=== PATIENT | female | born 1985 | race Caucasian/White ===

== ENCOUNTER → 2016-08-14 | Outpatient (CLI) | payer MEDICAID ==
[~2016-08-14] MED LIST: /HALO1T; /OL10DISTA; /OXCA30TA; /OXCA30TA OR; ABIL15TA; ABIL1TAB5 PO; ABIL5TAB5 PO; ALLE25CA; ALLE25CA OR; AMAN10CA PO; AMBI5TAB OR; ARIP10TAB PO; ARIP5TA PO; ATIV0.5T; ATIV1TAB2; BENZ1TAB; BENZ5TA PO; CALC200C PO; CELE20TA OR; CELE20TA PO; COGE1INJ; COGE1INJ PO; COGENTIN; COGENTIN PO; Cogentin OR; FANAPT; FANAPT OR; FANAPT PO; GABI4TAB; GEOD20CA14; GEOD60CA; GEODON; HALO10TA4 OR; HALOPERIDOL; HYDR25T PO; INDE1CAP5 PO; KLON1TAB; LORA0.5T; LORA2TAB; MELA3TAB PO; MELATONIN PO; Melatonin PO; OXCA300T PO; OXCA600T PO; PROP60CA PO; QUET20XRTB; TRAZ50TA; TRAZ50TA OR; TRIL600T; TRIL600T OR; VIST25CA PO; VITA400C; VITA400C OR; VITA400C2 PO; VITACHTA PO; Vitamin E OR; ZIPR80CAP; ZOLO100T; ZOLO100T OR; ZOLO25TA; ZOLO50TA; ZOLO50TA OR; Zoloft OR
[2016-08-14 09:12] LABS: MEAN CORPUSCULAR HGB CONC 32.9 g/dl (32.0-36.5); MEAN CORPUSCULAR VOLUME 85.1 fl (80.0-96.0); WHITE BLOOD COUNT 6.3 K/mm3 (4.0-10.0)
[2016-08-14 09:41] LABS: ALBUMIN 3.5 GM/DL (3.2-5.2); ALBUMIN/GLOBULIN RATIO 1.06 (1.00-1.93); ALKALINE PHOSPHATASE 86 U/L (45-117); ALT/SGPT 23 U/L (12-78); AST/SGOT 18 U/L (15-37); BILIRUBIN,DIRECT < 0.1 MG/DL (0.0-0.2); BILIRUBIN,TOTAL 0.2 MG/DL (0.2-1.0); TOTAL PROTEIN 6.8 GM/DL (6.4-8.2)
== END ==
LOC: M WUC 08:37
PROVIDERS: ATTEND Psychiatry & Neurology Psychiatry
DX: F31.9 Bipolar disorder, unspecified (principal)

== ENCOUNTER → 2017-04-10 | Outpatient (CLI) | payer MEDICAID ==
[~2017-04-10] MED LIST changes: +ABIL10TA9 PO; +ABIL1TAB11 PO; -ABIL1TAB5 PO; -ABIL5TAB5 PO; +BENZ0.5T PO; -BENZ5TA PO; +HYDR-3363 PO; -HYDR25T PO; -VITA400C2 PO; +VITA400C7 PO
--- NOTE | 2017-04-10 15:58 | REP ---
LEFT ANKLE, FOUR VIEWS: HISTORY: Acute pain. There is no acute fracture or dislocation. The joint space is normal in appearance. IMPRESSION: There is no acute fracture or dislocation. Signed by Bon Rivas MD 04/10/2017 04:11 P
== END ==
LOC: M SMT 15:28
PROVIDERS: ATTEND Family Medicine
DX: M25.572 Pain in left ankle and joints of left foot (principal)

== ENCOUNTER → 2017-04-21 | Outpatient (CLI) | payer MEDICAID | LOC: M SMT 08:21 | PROVIDERS: ATTEND Family Medicine | DX: R73.01 Impaired fasting glucose (principal) ==

== ENCOUNTER → 2017-04-21 | Outpatient (CLI) | payer MEDICAID ==
[2017-04-21 13:46] LABS: MEAN CORPUSCULAR HEMOGLOBIN 28.5 pg (27.0-33.0); MEAN CORPUSCULAR HGB CONC 33.6 g/dl (32.0-36.5); MEAN CORPUSCULAR VOLUME 84.9 fl (80.0-96.0); PLATELET COUNT, AUTOMATED 216 10^3/uL (150-450); RED CELL DISTRIBUTION WIDTH 13.4 % (11.5-14.5); WHITE BLOOD COUNT 5.8 10^3/uL (4.0-10.0)
[2017-04-21 14:05] LABS: ALBUMIN 3.5 GM/DL (3.2-5.2); ALBUMIN/GLOBULIN RATIO 1.13 (1.00-1.93); BILIRUBIN,DIRECT 0.1 MG/DL (0.0-0.2); BILIRUBIN,TOTAL 0.4 MG/DL (0.2-1.0); POTASSIUM SERUM 4.4 MEQ/L (3.5-5.1); TOTAL PROTEIN 6.6 GM/DL (6.4-8.2)
== END ==
LOC: M SMT 08:24
PROVIDERS: ATTEND Psychiatry & Neurology Psychiatry
DX: F25.0 Schizoaffective disorder, bipolar type (principal)

== ENCOUNTER → 2017-06-30 | Outpatient (REF) | payer MEDICAID ==
[2017-07-02 14:13] LABS: HPV HYBRID CAPTURE II Negative (Negative)
== END ==
LOC: M SFHCPLAZ 14:35
DX: Z12.4 Encounter for screening for malignant neoplasm of cervix (principal)

== ENCOUNTER → 2017-09-18 | Outpatient (CLI) | payer MEDICAID ==
[2017-09-18 13:30] LABS: HEMATOCRIT 39.3 % (36.0-47.0); HEMOGLOBIN 12.8 g/dl (12.0-15.5); MEAN CORPUSCULAR HEMOGLOBIN 27.4 pg (27.0-33.0); MEAN CORPUSCULAR HGB CONC 32.6 g/dl (32.0-36.5); MEAN CORPUSCULAR VOLUME 84.2 fl (80.0-96.0); PLATELET COUNT, AUTOMATED 255 10^3/uL (150-450); RED BLOOD COUNT 4.67 10^6/uL (4.00-5.40); RED CELL DISTRIBUTION WIDTH 12.5 % (11.5-14.5); WHITE BLOOD COUNT 11.2 10^3/uL (4.0-10.0)
[2017-09-18 13:40] LABS: ALBUMIN 3.5 GM/DL (3.2-5.2); ALBUMIN/GLOBULIN RATIO 0.95 (1.00-1.93); ALKALINE PHOSPHATASE 69 U/L (45-117); ALT/SGPT 17 U/L (12-78); ANION GAP 6 MEQ/L (8-16); AST/SGOT 12 U/L (7-37); BILIRUBIN,DIRECT < 0.1 MG/DL (0.0-0.2); BILIRUBIN,TOTAL 0.2 MG/DL (0.2-1.0); CARBON DIOXIDE LEVEL 26 MEQ/L (21-32); CHLORIDE LEVEL 100 MEQ/L (98-107); CHOLESTEROL LEVEL 178 MG/DL (< 200); POTASSIUM SERUM 4.9 MEQ/L (3.5-5.1); SODIUM LEVEL 132 MEQ/L (136-145); TOTAL PROTEIN 7.2 GM/DL (6.4-8.2)
[2017-09-18 14:16] LABS: ESTIMATED AVERAGE GLUCOSE 111 MG/DL (60-110); HEMOGLOBIN A1c 5.5 %
[2017-09-21 08:06] LABS: OXCARBAZEPINE 17 ug/mL (10-35)
== END ==
LOC: M SMT 08:17
DX: F25.1 Schizoaffective disorder, depressive type (principal)
CPT/HCPCS: 82465

== ENCOUNTER → 2017-09-23 | Outpatient (REF) | payer MEDICAID ==
[2017-09-23 19:42] LABS: ANION GAP 5 MEQ/L (8-16); BLOOD UREA NITROGEN 11 MG/DL (7-18); CALCIUM LEVEL 8.5 MG/DL (8.5-10.1); CARBON DIOXIDE LEVEL 30 MEQ/L (21-32); CHLORIDE LEVEL 103 MEQ/L (98-107); CREATININE FOR GFR 0.77 MG/DL (0.55-1.30); GLOMERULAR FILTRATION RATE > 60.0 (>60); GLUCOSE, FASTING 117 MG/DL (70-100); POTASSIUM SERUM 4.2 MEQ/L (3.5-5.1); SODIUM LEVEL 138 MEQ/L (136-145)
== END ==
LOC: M SFHCPLAZ 15:42
DX: E87.1 Hypo-osmolality and hyponatremia (principal)
CPT/HCPCS: 80048

== ENCOUNTER 2017-12-02 11:22 | Emergency (ER) | payer MEDICAID ==
[2017-12-02 13:32] LABS: BASO # 0.1 10^3/uL (0.0-0.2); BASO % 0.8 % (0.0-1.0); EOS # 0.3 10^3/uL (0.0-0.50); EOS % 3.7 % (0.0-3.0); HEMATOCRIT 40.1 % (36.0-47.0); IMMATURE GRANULOCYTE % 0.3 % (0-3.0); LYMPH # 1.7 10^3/uL (1.5-4.5); LYMPH % 22.5 % (24.0-44.0); MEAN CORPUSCULAR HEMOGLOBIN 27.2 pg (27.0-33.0); MEAN CORPUSCULAR HGB CONC 32.4 g/dl (32.0-36.5); MEAN CORPUSCULAR VOLUME 83.9 fl (80.0-96.0); MONO # 0.7 10^3/uL (0.0-0.8); MONO % 9.7 % (0.0-5.0); NEUTROPHILS # 4.8 10^3/uL (1.8-7.7); PLATELET COUNT, AUTOMATED 277 10^3/uL (150-450); RED BLOOD COUNT 4.78 10^6/uL (4.00-5.40); RED CELL DISTRIBUTION WIDTH 13.1 % (11.5-14.5); WHITE BLOOD COUNT 7.6 10^3/uL (4.0-10.0)
[2017-12-02 13:38] LABS: KETONE, URINE AUTO RFX NEGATIVE (NEGATIVE); LEUKOCYTE ESTERASE UR AUTO RFX NEGATIVE (NEGATIVE); MUCUS, URINE RFX SMALL (NEGATIVE); NITRITE, URINE AUTO RFX NEGATIVE (NEGATIVE); RBC, URINE AUTO RFX 2 /HPF (0-3); SQUAM EPITHELIAL CELL UR AURFX 1 /HPF (0-6); WBC, URINE AUTO RFX 1 /HPF (0-3)
[2017-12-02 13:47] LABS: D-DIMER QUANT 287.7 ng/ml (<500)
[2017-12-02 13:57] LABS: ALBUMIN 3.5 GM/DL (3.2-5.2); ALBUMIN/GLOBULIN RATIO 0.85 (1.00-1.93); ALKALINE PHOSPHATASE 75 U/L (45-117); ALT/SGPT 26 U/L (12-78); ANION GAP 7 MEQ/L (8-16); AST/SGOT 21 U/L (7-37); BILIRUBIN,DIRECT < 0.1 MG/DL (0.0-0.2); BILIRUBIN,TOTAL 0.2 MG/DL (0.2-1.0); BLOOD UREA NITROGEN 11 MG/DL (7-18); C REACTIVE PROTEIN QUANTITATIV 0.89 MG/DL (0.00-0.30); CALCIUM LEVEL 8.8 MG/DL (8.5-10.1); CARBON DIOXIDE LEVEL 28 MEQ/L (21-32); CHLORIDE LEVEL 100 MEQ/L (98-107); CREATININE FOR GFR 0.73 MG/DL (0.55-1.30); GLOMERULAR FILTRATION RATE > 60.0 (>60); GLUCOSE, FASTING 84 MG/DL (70-100); POTASSIUM SERUM 4.1 MEQ/L (3.5-5.1); SODIUM LEVEL 135 MEQ/L (136-145); TOTAL PROTEIN 7.6 GM/DL (6.4-8.2)
[2017-12-02 14:13] LABS: ERYTHROCYTE SEDIMENTATION RATE 6 mm/hr (0-20)
== END 2017-12-02 14:58 | disposition home or self-care (01) ==
LOC: M ED 11:22
DX: M94.0 Chondrocostal junction syndrome [Tietze] (principal); E87.1 Hypo-osmolality and hyponatremia; F84.0 Autistic disorder; F42.9 Obsessive-compulsive disorder, unspecified; F20.9 Schizophrenia, unspecified; F41.9 Anxiety disorder, unspecified; F33.9 Major depressive disorder, recurrent, unspecified; Z79.899 Other long term (current) drug therapy; Z88.0 Allergy status to penicillin; Z88.8 Allergy status to other drugs, medicaments and biological substances
CPT/HCPCS: 71046

== ENCOUNTER 2018-02-04 13:40 | Inpatient (IN) | payer MEDICAID ==
[2018-02-04 14:59] LABS: HEMATOCRIT 40.6 % (36.0-47.0); HEMOGLOBIN 13.1 g/dl (12.0-15.5); MEAN CORPUSCULAR HEMOGLOBIN 27.8 pg (27.0-33.0); MEAN CORPUSCULAR HGB CONC 32.3 g/dl (32.0-36.5); MEAN CORPUSCULAR VOLUME 86.2 fl (80.0-96.0); PLATELET COUNT, AUTOMATED 259 10^3/uL (150-450); RED BLOOD COUNT 4.71 10^6/uL (4.00-5.40); RED CELL DISTRIBUTION WIDTH 13.3 % (11.5-14.5); WHITE BLOOD COUNT 9.1 10^3/uL (4.0-10.0)
[2018-02-04 15:09] LABS: CONTROL LINE HCG INT CTR LINE PRESENT; HCG, SERUM QUALITATIVE NEGATIVE (NEGATIVE)
[2018-02-04 15:16] LABS: AMPHETAMINES LEVEL URINE NEGATIVE (NEGATIVE); BARBITURATES URINE NEGATIVE (NEGATIVE); BENZODIAZEPINES URINE NEGATIVE (NEGATIVE); CANNABINOIDS URINE NEGATIVE (NEGATIVE); COCAINE METABOLITE URINE NEGATIVE (NEGATIVE); METHADONE URINE NEGATIVE (NEGATIVE); OPIATES URINE NEGATIVE (NEGATIVE); PHENCYCLIDINE URINE NEGATIVE (NEGATIVE)
[2018-02-04 15:24] LABS: ALBUMIN 3.5 GM/DL (3.2-5.2); ALKALINE PHOSPHATASE 71 U/L (45-117); ALT/SGPT 24 U/L (12-78); ANION GAP 5 MEQ/L (8-16); AST/SGOT 15 U/L (7-37); BILIRUBIN,DIRECT < 0.1 MG/DL (0.0-0.2); BILIRUBIN,TOTAL 0.3 MG/DL (0.2-1.0); BLOOD UREA NITROGEN 14 MG/DL (7-18); CALCIUM LEVEL 8.8 MG/DL (8.5-10.1); CARBON DIOXIDE LEVEL 29 MEQ/L (21-32); CHLORIDE LEVEL 107 MEQ/L (98-107); ETHYL ALCOHOL (ETHANOL) 0.003 % (0.000-0.010); GLOMERULAR FILTRATION RATE > 60.0 (>60); GLUCOSE, FASTING 94 MG/DL (70-100); POTASSIUM SERUM 4.1 MEQ/L (3.5-5.1); SALICYLATE LEVEL < 1.7 MG/DL (5.0-30.0); SODIUM LEVEL 141 MEQ/L (136-145); THYROID STIMULATING HORMONE 0.935 uIU/ML (0.358-3.740); TOTAL PROTEIN 7.4 GM/DL (6.4-8.2)
[2018-02-04 15:25] LABS: ACETAMINOPHEN LEVEL < 2.0 UG/ML (10.0-30.0)
[2018-02-04] MEDS: OXcarbazepine 300 MG TAB PO (19:39)
[2018-02-04] MEDS: BENZTROPINE 0.5 MG TAB PO (19:39)
[2018-02-04] MEDS: LORazepam 1 MG TAB PO (19:39)
[2018-02-04] MEDS: traZODone 50 MG TAB PO (19:39)
[2018-02-04] MEDS: ACETAMINOPHEN TAB 650MG DOSE (2X325MG) PO (19:40)
[2018-02-04] MEDS: PROPRANOLOL 60 MG LA CAP PO (19:57)
[2018-02-04] MEDS: AMANTADINE 100 MG CAP PO (19:58)
[2018-02-05] MEDS: CitaloPRAM (CeleXA) 20 MG TAB PO (08:08)
[2018-02-05] MEDS: AMANTADINE 100 MG CAP PO ×3 (08:08→20:38)
[2018-02-05] MEDS: OXcarbazepine 300 MG TAB PO ×2 (08:09→20:39)
[2018-02-05] MEDS: ARIPiprazole 10 MG TAB PO (08:09)
[2018-02-05] MEDS: hydrOXYzine 25 MG TAB PO ×2 (08:09→12:12)
[2018-02-05] MEDS: BENZTROPINE 0.5 MG TAB PO ×2 (08:09→20:39)
[2018-02-05] MEDS ORDERED: LORYNA PO (09:00)
[2018-02-05] MEDS ORDERED: OLANZapine ORAL DISINTEGRATING TAB 5MG PO (14:00)
[2018-02-05] MEDS: LORazepam 1 MG TAB PO (20:38)
[2018-02-05] MEDS: PROPRANOLOL 60 MG LA CAP PO (20:38)
[2018-02-05] MEDS: traZODone 50 MG TAB PO (20:39)
[2018-02-06] MEDS: CitaloPRAM (CeleXA) 20 MG TAB PO (08:55)
[2018-02-06] MEDS: BENZTROPINE 0.5 MG TAB PO ×2 (08:55→20:38)
[2018-02-06] MEDS: ARIPiprazole 10 MG TAB PO (08:55)
[2018-02-06] MEDS: AMANTADINE 100 MG CAP PO ×3 (08:55→20:36)
[2018-02-06] MEDS: hydrOXYzine 25 MG TAB PO ×2 (08:55→11:55)
[2018-02-06] MEDS: OXcarbazepine 300 MG TAB PO ×2 (08:56→20:36)
[2018-02-06] MEDS: PROPRANOLOL 60 MG LA CAP PO (20:38)
[2018-02-07] MEDS: ARIPiprazole 10 MG TAB PO (08:51)
[2018-02-07] MEDS: AMANTADINE 100 MG CAP PO ×3 (08:52→21:28)
[2018-02-07] MEDS: BENZTROPINE 0.5 MG TAB PO ×2 (08:52→21:29)
[2018-02-07] MEDS: hydrOXYzine 25 MG TAB PO ×2 (08:52→11:29)
[2018-02-07] MEDS: CitaloPRAM (CeleXA) 20 MG TAB PO (08:52)
[2018-02-07] MEDS: OXcarbazepine 300 MG TAB PO ×2 (08:52→21:30)
[2018-02-07] MEDS: PROPRANOLOL 60 MG LA CAP PO (21:29)
[2018-02-07] MEDS: traZODone 50 MG TAB PO (21:32)
[2018-02-08] MEDS: BENZTROPINE 0.5 MG TAB PO ×2 (08:47→21:51)
[2018-02-08] MEDS: ARIPiprazole 10 MG TAB PO (08:47)
[2018-02-08] MEDS: hydrOXYzine 25 MG TAB PO ×2 (08:47→11:36)
[2018-02-08] MEDS: CitaloPRAM (CeleXA) 20 MG TAB PO (08:47)
[2018-02-08] MEDS: OXcarbazepine 300 MG TAB PO ×2 (08:47→21:52)
[2018-02-08] MEDS: AMANTADINE 100 MG CAP PO ×3 (08:47→21:51)
[2018-02-08] MEDS: PROPRANOLOL 60 MG LA CAP PO (21:51)
[2018-02-08] MEDS: traZODone 50 MG TAB PO (21:52)
[2018-02-09 00:06] LABS: OXCARBAZEPINE 19 ug/mL (10-35)
[2018-02-09] MEDS: CitaloPRAM (CeleXA) 20 MG TAB PO (09:11)
[2018-02-09] MEDS: AMANTADINE 100 MG CAP PO (09:11)
[2018-02-09] MEDS: ARIPiprazole 10 MG TAB PO (09:11)
[2018-02-09] MEDS: OXcarbazepine 300 MG TAB PO (09:12)
[2018-02-09] MEDS: hydrOXYzine 25 MG TAB PO ×2 (09:12→11:57)
[2018-02-09] MEDS: BENZTROPINE 0.5 MG TAB PO (09:12)
== END 2018-02-09 15:10 | disposition home or self-care (01) | DRG 750 ==
LOC: M ED 13:40 → M ED INP 16:44 → M PSY 17:48
DX: F25.1 Schizoaffective disorder, depressive type (principal); F84.5 Asperger's syndrome; F42.9 Obsessive-compulsive disorder, unspecified; Z79.899 Other long term (current) drug therapy; Z88.0 Allergy status to penicillin; Z88.8 Allergy status to other drugs, medicaments and biological substances; F41.9 Anxiety disorder, unspecified

== ENCOUNTER → 2018-05-04 | Outpatient (CLI) | payer MEDICAID ==
[2018-05-04 13:35] LABS: HEMATOCRIT 39.2 % (36.0-47.0); HEMOGLOBIN 12.4 g/dl (12.0-15.5); MEAN CORPUSCULAR HEMOGLOBIN 27.4 pg (27.0-33.0); MEAN CORPUSCULAR HGB CONC 31.6 g/dl (32.0-36.5); MEAN CORPUSCULAR VOLUME 86.7 fl (80.0-96.0); PLATELET COUNT, AUTOMATED 258 10^3/uL (150-450); RED BLOOD COUNT 4.52 10^6/uL (4.00-5.40); RED CELL DISTRIBUTION WIDTH 13.6 % (11.5-14.5); WHITE BLOOD COUNT 5.6 10^3/uL (4.0-10.0)
[2018-05-04 13:44] LABS: ALBUMIN 3.5 GM/DL (3.2-5.2); ALBUMIN/GLOBULIN RATIO 1.09 (1.00-1.93); ALKALINE PHOSPHATASE 74 U/L (45-117); ALT/SGPT 30 U/L (12-78); ANION GAP 7 MEQ/L (8-16); AST/SGOT 18 U/L (7-37); BILIRUBIN,DIRECT < 0.1 MG/DL (0.0-0.2); BILIRUBIN,TOTAL 0.1 MG/DL (0.2-1.0); CARBON DIOXIDE LEVEL 26 MEQ/L (21-32); CHLORIDE LEVEL 107 MEQ/L (98-107); CHOLESTEROL LEVEL 253 MG/DL (< 200); POTASSIUM SERUM 4.6 MEQ/L (3.5-5.1); SODIUM LEVEL 140 MEQ/L (136-145); TOTAL PROTEIN 6.7 GM/DL (6.4-8.2)
[2018-05-04 14:37] LABS: ESTIMATED AVERAGE GLUCOSE 117 MG/DL (60-110); HEMOGLOBIN A1c 5.7 %
[2018-05-07 14:22] LABS: OXCARBAZEPINE 18 ug/mL (10-35)
== END ==
LOC: M SMT 08:14
DX: F25.1 Schizoaffective disorder, depressive type (principal)
CPT/HCPCS: 82465

== ENCOUNTER 2018-08-25 18:33 | Inpatient (IN) | payer MEDICAID ==
[~2018-08-25] VITALS: Ht 157.5 cm; Wt 89.9 kg
[~2018-08-25 18:33] MED LIST changes: +CALC1TAB26 PO; +HYDR1CAP25 PO; -INDE1CAP5 PO; +INDE60CA4 PO; +LORY1TAB2 PO; +LORYNA; -OXCA300T PO; +OXCA300T14 PO; -OXCA600T PO; +OXCA600T8 PO; +PRED20TA PO; +TYLE500T78 PO; +VITA400C67 PO
[2018-08-25] MEDS ORDERED: MIRA3350 PO (20:20)
[2018-08-25 21:20] LABS: HEMOGLOBIN 13.3 g/dl (12.0-15.5); MEAN CORPUSCULAR HEMOGLOBIN 27.9 pg (27.0-33.0); MEAN CORPUSCULAR HGB CONC 32.4 g/dl (32.0-36.5); PLATELET COUNT, AUTOMATED 231 10^3/uL (150-450); RED BLOOD COUNT 4.77 10^6/uL (4.00-5.40)
[2018-08-25 21:25] LABS: AMPHETAMINES LEVEL URINE NEGATIVE (NEGATIVE); BARBITURATES URINE NEGATIVE (NEGATIVE); BENZODIAZEPINES URINE NEGATIVE (NEGATIVE); CANNABINOIDS URINE NEGATIVE (NEGATIVE); COCAINE METABOLITE URINE NEGATIVE (NEGATIVE); METHADONE URINE NEGATIVE (NEGATIVE); OPIATES URINE NEGATIVE (NEGATIVE); PHENCYCLIDINE URINE NEGATIVE (NEGATIVE)
[2018-08-25 22:10] LABS: HCG, SERUM QUALITATIVE NEGATIVE (NEGATIVE)
[2018-08-25] MEDS ORDERED: OLANZapine ORAL DISINTEGRATING TAB 5MG PO PRN (22:30)
[2018-08-25] MEDS ORDERED: MOM 30ML SUSPENSION UDC PO PRN (22:30)
[2018-08-25] MEDS ORDERED: ACETAMINOPHEN TAB 650MG DOSE (2X325MG) PO PRN (22:30)
[2018-08-25] MEDS ORDERED: MAALOX 30 ML SUSP *UDC PO PRN (22:30)
[2018-08-25 22:34] LABS: ALT/SGPT 24 U/L (12-78); BLOOD UREA NITROGEN 19 MG/DL (7-18); CALCIUM LEVEL 8.3 MG/DL (8.5-10.1); CARBON DIOXIDE LEVEL 25 MEQ/L (21-32); CHLORIDE LEVEL 105 MEQ/L (98-107); CREATININE FOR GFR 0.98 MG/DL (0.55-1.30); GLOMERULAR FILTRATION RATE > 60.0 (>60); GLUCOSE, FASTING 104 MG/DL (70-100); SODIUM LEVEL 139 MEQ/L (136-145)
[2018-08-25 22:35] LABS: ALBUMIN 3.7 GM/DL (3.2-5.2); BILIRUBIN,DIRECT < 0.1 MG/DL (0.0-0.2); BILIRUBIN,TOTAL 0.2 MG/DL (0.2-1.0); SALICYLATE LEVEL < 1.7 MG/DL (5.0-30.0); TOTAL PROTEIN 7.1 GM/DL (6.4-8.2)
[2018-08-25 22:36] LABS: ACETAMINOPHEN LEVEL < 2.0 UG/ML (10.0-30.0); ETHYL ALCOHOL (ETHANOL) < 0.003 % (0.000-0.010)
[2018-08-25 23:19] VITALS: BP 160/97
[2018-08-25] MEDS ORDERED: AMAN100C18 PO (23:35)
[2018-08-25] MEDS ORDERED: VITMTA PO (23:35)
[2018-08-25] MEDS ORDERED: CITA-229 PO (23:35)
[2018-08-26] MEDS ORDERED: clonazePAM 1 MG TAB PO ONE (00:15)
[2018-08-26] MEDS ORDERED: MIRTAZAPINE 15 MG TAB PO ONE (00:15)
[2018-08-26 06:12] VITALS: BP 148/80
[2018-08-26] MEDS ORDERED: PALIPERIDONE 3 MG ER TAB (INVEGA) PO SCH (09:00)
--- NOTE | 2018-08-26 09:20 | HPEPDOC ---
[facility] Medical History & Physical Date of Admission Aug 25, 2018 History and Physical PCP: Lobo Lambert ATTENDING: Dr. Cricket Sr HPI: 33[facility]F [facility], being medically examined today. No acute medical complaints today. Dry skin is noted on hands B/L which pt states is from repeated washing. Denies any recent cutting. Denies any fevers, chills, weakness, fatigue, FREDERICK, CP, SOB, cough, palpitations, abdominal pain, N/V/D or changes in bowel or bladder habits. PMHx: Autism spectrum disorder Schizoaffective disorder OCD History of SI/SA. Self-harm, cutting History of alcohol use Depression Anxiety Chronic left ankle pain PSHX: [place] teeth extraction SOCHX: Resides in: [place], lives with her parents Marital Status: Single Kids: None Employment: Unemployed Tobacco use: Denies ETOH: States has not drank since December 2015 Illicit Drugs: Denies IV Drug Use: Denies Tattoos done unprofessionally: Denies FAMHX: Mother: Alive, well Father: Alive, well Siblings: Alive, well Children: none Unexpected deaths due to medical reasons: None. ROS: As noted in HPI, otherwise 11pt ROS of systems reviewed and remarkable only for LMP 08/05/18. PE: GEN: 31yoF, appears stated age. Well-nourished, well developed. No acute distress. Alert and oriented x 3. Speech is pressured and tangential. Avoids eye contact. Appears anxious throughout exam. HEENT: Normocephalic, atraumatic. Pupils are equal, round, and reactive to light. Extraocular movements are intact. No nystagmus appreciated. Sclera are nonicteric. Conjunctiva without injection. Nose midline. Nasal turbinates without bogginess. EACs both patent BL. TMs both visualized and díaz with good cone of light, no bulging or erythema. No facial asymmetry. Moist mucous membranes. Dentition fair. Pharynx pink and moist, no cobblestoning. Neck supple, trachea midline. No lymphadenopathy or thyromegaly appreciated. CHEST: Regular rate and rhythm, +S1, +S2 LUNGS: Clear to auscultation bilaterally. No wheezes, rales, or rhonchi. Breathing appears symmetric and easy. Patient is speaking in full sentences. No accessory muscle use. ABD: Round, soft, non-tender, non-distended. +Bowel sounds throughout. No rebound or guarding. No costovertebral angle tenderness. EXT: Pulses 2+ bilaterally dorsalis pedis and radial. No lower extremity edema appreciated. SKIN: [place], dry, warm. Capillary refill <2sec. Dry skin noted b/l hands. NEURO: Alert and oriented x 3. Cranial nerves III-XII are intact. No focal deficits appreciated. EKG: SINUS RHYTHM SIMILAR 05/07/16 Electronically Signed On 12-03-2017 15:27:26 EDT by Dionne Kumar A&P: 33yoF [facility] disorder. 1. Psych. Plan per Psychiatry. EKG on file. 2. Dry skin b/l hands related to repeated washing. Advised cool water and mild soap. Apply lotion after washing. Pt declines Eucerin. Hydrocortisone cream as needed. 3. Follow up with PCP on discharge. 4. Abnormal TSH. Recheck TFTs in AM. 5. Staff member, Emili [employer] student present throughout exam. Vital Signs Vital Signs Date Time Temp Pulse Resp B/P (MAP) Pulse Ox O2 Delivery O2 Flow Rate FiO2 08/26/18 06:12 97.8 60 18 148/80 (102) 08/25/18 23:06 99 Room Air Laboratory Data Labs 24H Laboratory Tests 2 08/25/18 19:04: Nucleated Red Blood Cells % (auto) 0.0, Urine Amphetamines Screen NEGATIVE, Urine Benzodiazepines Screen NEGATIVE, Urine Opiates Screen NEGATIVE, Urine Methadone Screen NEGATIVE, Urine Barbiturates Screen NEGATIVE, Urine P hencyclidine Screen NEGATIVE, Urine Cocaine Metabolite Screen NEGATIVE, Urine Cannabinoids Screen NEGATIVE 08/25/18 21:45: Anion Gap 9, Glomerular Filtration Rate > 60.0, Calcium Level 8.3L, Aspartate Amino Transf (AST/SGOT) 16, Alanine Aminotransferase (ALT/SGPT) 24, Alkaline Ph osphatase 72, Total Bilirubin 0.2, Direct Bilirubin < 0.1, Total Protein 7.1, Albumin 3.7, Albumin/Globulin Ratio 1.09, Thyroid Stimulating Hormone (TSH) 5.810H, Human Chorionic Gonadotropin, Qual NEGATIVE, Salicylates Level < 1.7L, Acetaminophen Level < 2.0L, Ethyl Alcohol Level < 0.003 CBC/BMP Laboratory Tests 08/25/18 19:04 Red Blood Count 4.77, Mean Corpuscular Volume 86.0, Mean Corpuscular Hemoglobin 27.9, Mean Corpuscular Hemoglobin Concent 32.4, Red Cell Distribution Width 13.5 08/25/18 21:45 Home Medications Scheduled (Calcium 600+D 600-800 mg-Unit) 1 Tab Tab, 1 TAB PO DAILY for . Amantadine HCl (Amantadine HCl) 100 Mg Cap, 100 MG PO TID for . Aripiprazole (Abilify) 10 Mg Tab, 10 MG PO BID Aripiprazole (Abilify) 5 Mg Tab, 5 MG PO QHS 15MG TOTAL QHS Benztropine Mesylate (Benztropine Mesylate) 0.5 Mg Tab, 0.5 MG PO Q2D for . Benztropine Mesylate (Benztropine Mesylate) 0.5 Mg Tab, 0.5 MG PO QHS Citalopram Hydrobromide (Celexa) 20 Mg Tab, 20 MG PO DAILY for . TAKES WITH 10MG FOR 30MG TOTAL Citalopram Hydrobromide (Citalopram) 10 Mg Tab, 10 MG PO DAILY for . TAKES WITH 20MG FOR 30MG TOTAL Hydroxyzine Pamoate (Hydroxyzine Pamoate) 25 Mg Cap, 25 MG PO BID MORNING AND NOON Multivitamins *[facility] STOCKED* (Thera M Plus *[facility] STOCKED*) 1 Tab Tab, 1 TAB PO DAILY for . Oxcarbazepine (Oxcarbazepine) 300 Mg Tab, 300 MG PO QAM Oxcarbazepine (Oxcarbazepine) 600 Mg Tab, 600 MG PO QHS Propranolol HCl (Propranolol HCl ER) 60 Mg Cap, 60 MG PO QHS Vitamin E (Vitamin E-400) 400 Unit Cap, 400 UNIT PO BID Scheduled PRN Melatonin (Melatonin) 3 Mg Tab, 6 MG PO QHS PRN for SLEEP Polyethylene Glycol (Miralax) 1 Pow Pow, 17 GM PO DAILY PRN for CONSTIPATION Allergies Coded Allergies: Penicillins (Verified Allergy, Intermediate, RASH, 02/04/18) Penicillins Cross Reactors (Verified Allergy, Intermediate, RASH, 02/04/18) Quetiapine (Verified Allergy, Intermediate, RASH, 02/04/18) Risperidone (Unverified Allergy, Intermediate, RASH, 02/04/18) Prednisone (Verified Adverse Reaction, Intermediate, anger, aggitation, aggressive, 02/04/18) Rubina Cole Aug 26, 2018 09:20
[2018-08-26] MEDS ORDERED: HYDROCORTISONE 1% CREAM 30 GM TOP PRN (09:30)
[2018-08-26] MEDS: clonazePAM 1 MG TAB PO SCH ×3 (09:49→22:02)
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
[2018-08-26] MEDS ORDERED: MIRALAX *UNIT DOSE* 17GM PACKET PO PRN (15:00)
[2018-08-26] MEDS: hydrOXYzine 25 MG TAB PO SCH (15:45)
[2018-08-26] MEDS: CitaloPRAM (CeleXA) 10 MG TABLET PO SCH (15:45)
[2018-08-26] MEDS: AMANTADINE 100 MG CAP PO SCH ×2 (16:30→22:00)
[2018-08-26 18:19] VITALS: BP 136/80
[2018-08-26] MEDS ORDERED: MIRTAZAPINE 15 MG TAB PO SCH (21:00)
[2018-08-26] MEDS: PROPRANOLOL 60 MG LA CAP PO SCH (22:01)
[2018-08-26] MEDS: BENZTROPINE 0.5 MG TAB PO SCH (22:01)
[2018-08-26] MEDS: OXcarbazepine 300 MG TAB PO SCH (22:02)
[2018-08-26] MEDS: RAMELTEON 8 MG TAB (ROZEREM) PO SCH (22:02)
[2018-08-26] MEDS: VITAMIN E 400 INTERNATIONAL UNITS CAP PO SCH (22:03)
[2018-08-27 06:33] VITALS: BP 114/57
[2018-08-27] MEDS: OXcarbazepine 300 MG TAB PO SCH ×2 (08:33→21:25)
[2018-08-27] MEDS: hydrOXYzine 25 MG TAB PO SCH ×2 (08:33→12:09)
[2018-08-27] MEDS: ARIPiprazole 10 MG TAB PO SCH (08:33)
[2018-08-27] MEDS: clonazePAM 1 MG TAB PO SCH (08:34)
[2018-08-27] MEDS: BENZTROPINE 0.5 MG TAB PO SCH ×2 (08:34→21:22)
[2018-08-27] MEDS: CitaloPRAM (CeleXA) 10 MG TABLET PO SCH (08:34)
[2018-08-27] MEDS: CALCIUM/VITAMIN D 500 MG TAB PO SCH (08:34)
[2018-08-27] MEDS: AMANTADINE 100 MG CAP PO SCH ×3 (08:34→21:22)
[2018-08-27] MEDS: VITAMIN E 400 INTERNATIONAL UNITS CAP PO SCH ×2 (08:34→21:22)
[2018-08-27] MEDS ORDERED: CitaloPRAM (CeleXA) 20 MG TAB PO SCH (09:00)
[2018-08-27 09:16] LABS: FREE THYROXINE INDEX 1.7 % (1.3-4.8); THYROID STIMULATING HORMONE 1.98 uIU/ML (0.358-3.740); THYROXINE (T4) 5.6 UG/DL (4.5-12.0)
[2018-08-27] MEDS ORDERED: clonazePAM 1 MG TAB PO PRN (13:30)
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
[2018-08-27 18:00] VITALS: BP 136/80
[2018-08-27] MEDS: RAMELTEON 8 MG TAB (ROZEREM) PO SCH (21:22)
[2018-08-27] MEDS: PROPRANOLOL 60 MG LA CAP PO SCH (21:22)
[2018-08-28 06:00] VITALS: BP 119/71
[2018-08-28] MEDS: AMANTADINE 100 MG CAP PO SCH ×3 (08:58→20:52)
[2018-08-28] MEDS: CALCIUM/VITAMIN D 500 MG TAB PO SCH (08:58)
[2018-08-28] MEDS: VITAMIN E 400 INTERNATIONAL UNITS CAP PO SCH ×2 (08:58→20:52)
[2018-08-28] MEDS: ARIPiprazole 10 MG TAB PO SCH (08:58)
[2018-08-28] MEDS: CitaloPRAM (CeleXA) 10 MG TABLET PO SCH (08:59)
[2018-08-28] MEDS: OXcarbazepine 300 MG TAB PO SCH ×2 (08:59→20:52)
[2018-08-28] MEDS: hydrOXYzine 25 MG TAB PO SCH ×2 (08:59→12:01)
[2018-08-28 18:01] VITALS: BP 127/72
[2018-08-28] MEDS: RAMELTEON 8 MG TAB (ROZEREM) PO SCH (20:51)
[2018-08-28] MEDS: PROPRANOLOL 60 MG LA CAP PO SCH (20:52)
[2018-08-28] MEDS: BENZTROPINE 0.5 MG TAB PO SCH (20:52)
[2018-08-28] MEDS: BACITRACIN OINT 30GM TOP SCH (20:53)
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
[2018-08-29 06:15] VITALS: BP 123/76
[2018-08-29] MEDS: BACITRACIN OINT 30GM TOP SCH ×3 (08:45→21:00)
[2018-08-29] MEDS: VITAMIN E 400 INTERNATIONAL UNITS CAP PO SCH ×2 (08:47→21:09)
[2018-08-29] MEDS: CALCIUM/VITAMIN D 500 MG TAB PO SCH (08:47)
[2018-08-29] MEDS: AMANTADINE 100 MG CAP PO SCH ×3 (08:47→21:09)
[2018-08-29] MEDS: CitaloPRAM (CeleXA) 10 MG TABLET PO SCH (08:47)
[2018-08-29] MEDS: hydrOXYzine 25 MG TAB PO SCH ×2 (08:47→11:37)
[2018-08-29] MEDS: ARIPiprazole 10 MG TAB PO SCH (08:48)
[2018-08-29] MEDS: OXcarbazepine 300 MG TAB PO SCH ×2 (08:48→21:08)
[2018-08-29] MEDS: BENZTROPINE 0.5 MG TAB PO SCH ×2 (08:48→21:08)
[2018-08-29 18:34] VITALS: BP 128/69
[2018-08-29] MEDS: RAMELTEON 8 MG TAB (ROZEREM) PO SCH (21:08)
[2018-08-29] MEDS: PROPRANOLOL 60 MG LA CAP PO SCH (21:10)
[2018-08-30 06:09] VITALS: BP 126/69
[2018-08-30] MEDS: VITAMIN E 400 INTERNATIONAL UNITS CAP PO SCH ×2 (08:15→20:47)
[2018-08-30] MEDS: AMANTADINE 100 MG CAP PO SCH ×3 (08:15→20:47)
[2018-08-30] MEDS: ARIPiprazole 10 MG TAB PO SCH (08:15)
[2018-08-30] MEDS: CALCIUM/VITAMIN D 500 MG TAB PO SCH (08:15)
[2018-08-30] MEDS: hydrOXYzine 25 MG TAB PO SCH ×2 (08:15→12:08)
[2018-08-30] MEDS: OXcarbazepine 300 MG TAB PO SCH ×2 (08:15→20:47)
[2018-08-30] MEDS: BACITRACIN OINT 30GM TOP SCH ×2 (08:15→20:48)
[2018-08-30] MEDS: CitaloPRAM (CeleXA) 10 MG TABLET PO SCH (08:15)
[2018-08-30 18:01] VITALS: BP 136/79
[2018-08-30] MEDS: RAMELTEON 8 MG TAB (ROZEREM) PO SCH (20:47)
[2018-08-30] MEDS: BENZTROPINE 0.5 MG TAB PO SCH (20:47)
[2018-08-30] MEDS: PROPRANOLOL 60 MG LA CAP PO SCH (20:50)
[2018-08-31 06:11] VITALS: BP 123/78
[2018-08-31] MEDS: hydrOXYzine 25 MG TAB PO SCH ×2 (09:49→12:51)
[2018-08-31] MEDS: CALCIUM/VITAMIN D 500 MG TAB PO SCH (09:49)
[2018-08-31] MEDS: BENZTROPINE 0.5 MG TAB PO SCH ×2 (09:49→21:50)
[2018-08-31] MEDS: AMANTADINE 100 MG CAP PO SCH ×3 (09:49→21:51)
[2018-08-31] MEDS: VITAMIN E 400 INTERNATIONAL UNITS CAP PO SCH ×2 (09:49→21:51)
[2018-08-31] MEDS: CitaloPRAM (CeleXA) 10 MG TABLET PO SCH (09:49)
[2018-08-31] MEDS: OXcarbazepine 300 MG TAB PO SCH ×2 (09:49→21:50)
[2018-08-31] MEDS: ARIPiprazole 10 MG TAB PO SCH (09:50)
[2018-08-31] MEDS: BACITRACIN OINT 30GM TOP SCH ×2 (09:52→21:52)
[2018-08-31 18:00] VITALS: BP_SYST 123; BP_SYST 136; BP_DIAS 78; BP_DIAS 88
[2018-08-31 21:51] VITALS: BP 138/76
[2018-08-31] MEDS: PROPRANOLOL 60 MG LA CAP PO SCH (21:51)
[2018-08-31] MEDS: RAMELTEON 8 MG TAB (ROZEREM) PO SCH (21:51)
[2018-09-01 06:12] VITALS: BP 126/60
[2018-09-01] MEDS: ARIPiprazole 10 MG TAB PO SCH (08:41)
[2018-09-01] MEDS: OXcarbazepine 300 MG TAB PO SCH (08:42)
[2018-09-01] MEDS: AMANTADINE 100 MG CAP PO SCH (08:43)
[2018-09-01] MEDS: CitaloPRAM (CeleXA) 10 MG TABLET PO SCH (08:43)
[2018-09-01] MEDS: VITAMIN E 400 INTERNATIONAL UNITS CAP PO SCH (08:43)
[2018-09-01] MEDS: hydrOXYzine 25 MG TAB PO SCH ×2 (08:43→11:20)
[2018-09-01] MEDS: BACITRACIN OINT 30GM TOP SCH (08:44)
[2018-09-01] MEDS: CALCIUM/VITAMIN D 500 MG TAB PO SCH (08:45)
[2018-09-01] MEDS ORDERED: ARIP5TA PO (11:06)
[2018-09-01] MEDS ORDERED: ARIP1TAB10 PO (11:06)
[2018-09-01] MEDS ORDERED: ROZE8TAB16 PO (13:55)
--- NOTE | 2018-09-04 14:54 | MHIPN ---
DATE: 08/29/2018 The patient today tells me, "I'm feeling better." She does appear to be quite manic. Speech is pressured. Increased psychomotor activity. She did say that she slept good. She tells me, "I haven't had any anger outbursts today." MENTAL STATUS EXAMINATION: Alert and oriented times three. Eye contact fairly good. Psychomotor activity is increased. She is verbally spontaneous. Actually has pressured speech. No formal thought disorder. She says her mood is "better." Affect appears to be appropriate, not labile. Concentration fair. Insight and judgment fair. She is not suicidal or homicidal or psychotic. DIAGNOSES: 1. Schizoaffective disorder. 2. Autism spectrum disorder. 3. Generalized anxiety disorder. 4. Obsessive-compulsive disorder. TREATMENT PLAN: At this point, we will continue to monitor the patient for continued stabilization of her mood, watch for elevation and for continued resolution of any suicidal or homicidal ideations and we will titrate medications as indicated.
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
== END 2018-09-01 13:47 | disposition home or self-care (01) | DRG 757 ==
LOC: M ED 18:33 → M ED INP 22:16 → M PSY 23:12
PROVIDERS: ADMIT Psychiatry & Neurology Psychiatry; ATTEND Psychiatry & Neurology Psychiatry
DX: F84.0 Autistic disorder (principal); F25.9 Schizoaffective disorder, unspecified; F41.1 Generalized anxiety disorder; Z79.899 Other long term (current) drug therapy; Z88.0 Allergy status to penicillin; Z88.8 Allergy status to other drugs, medicaments and biological substances

== ENCOUNTER 2019-01-28 09:34 | Inpatient (IN) | payer MEDICAID ==
[~2019-01-28] VITALS: Ht 157.5 cm; Wt 91.4 kg
[~2019-01-28 09:34] MED LIST changes: -/HALO1T; -/OL10DISTA; -/OXCA30TA; -/OXCA30TA OR; +AMAN100C18 PO; +AMAN100C20 PO; -AMAN10CA PO; -ARIP10TAB PO; +ARIP1TAB PO; +ARIP1TAB10 PO; +ARIP1TAB6 PO; -ARIP5TA PO; -BENZ0.5T PO; +BENZ0.5T23 PO; +CITA10TA6 PO; +HALO1TAB20; +MIRA3350 PO; -QUET20XRTB; +ROZE8TAB16 PO; +SERO200T43; +TRIL1TAB; +TRIL1TAB OR; +VITMTA PO; +ZYPR1TAB4
[2019-01-28 10:11] LABS: HEMATOCRIT 39.7 % (36.0-47.0); HEMOGLOBIN 13.2 g/dl (12.0-15.5); MEAN CORPUSCULAR HEMOGLOBIN 28.9 pg (27.0-33.0); MEAN CORPUSCULAR HGB CONC 33.2 g/dl (32.0-36.5); MEAN CORPUSCULAR VOLUME 87.1 fl (80.0-96.0); PLATELET COUNT, AUTOMATED 239 10^3/uL (150-450); RED BLOOD COUNT 4.56 10^6/uL (4.00-5.40); WHITE BLOOD COUNT 9.9 10^3/uL (4.0-10.0)
[2019-01-28 10:33] LABS: HCG, SERUM QUALITATIVE NEGATIVE (NEGATIVE)
[2019-01-28 10:43] LABS: ACETAMINOPHEN LEVEL < 2.0 UG/ML (10.0-30.0); ALBUMIN 3.7 GM/DL (3.2-5.2); ALT/SGPT 30 U/L (12-78); BILIRUBIN,DIRECT < 0.1 MG/DL (0.0-0.2); BILIRUBIN,TOTAL 0.1 MG/DL (0.2-1.0); BLOOD UREA NITROGEN 12 MG/DL (7-18); CARBON DIOXIDE LEVEL 30 MEQ/L (21-32); CHLORIDE LEVEL 107 MEQ/L (98-107); CREATININE FOR GFR 0.75 MG/DL (0.55-1.30); ETHYL ALCOHOL (ETHANOL) 0.006 % (0.000-0.010); GLOMERULAR FILTRATION RATE > 60.0 (>60); GLUCOSE, FASTING 94 MG/DL (70-100); POTASSIUM SERUM 4.7 MEQ/L (3.5-5.1); SALICYLATE LEVEL < 1.7 MG/DL (5.0-30.0); SODIUM LEVEL 140 MEQ/L (136-145)
[2019-01-28] MEDS ORDERED: VRAY6CAP PO (11:57)
[2019-01-28] MEDS ORDERED: BENZ0.5T23 PO ×2 (11:57)
[2019-01-28] MEDS ORDERED: MELA3TAB49 PO (11:57)
[2019-01-28] MEDS ORDERED: PROP80CA PO (11:57)
[2019-01-28] MEDS ORDERED: CELE20TA PO (11:57)
[2019-01-28] MEDS ORDERED: VITA-55 PO (11:57)
[2019-01-28] MEDS ORDERED: CALC1TAB26 PO (11:57)
[2019-01-28] MEDS ORDERED: TRIL1TAB PO (11:57)
[2019-01-28] MEDS ORDERED: VIST25CA PO (11:57)
[2019-01-28] MEDS ORDERED: TRIL600T PO (11:57)
[2019-01-28] MEDS ORDERED: ACET-897 PO (11:57)
[2019-01-28] MEDS ORDERED: AMAN100T PO (11:59)
[2019-01-28 12:28] LABS: AMPHETAMINES LEVEL URINE NEGATIVE (NEGATIVE); BARBITURATES URINE NEGATIVE (NEGATIVE); BENZODIAZEPINES URINE NEGATIVE (NEGATIVE); CANNABINOIDS URINE NEGATIVE (NEGATIVE); COCAINE METABOLITE URINE NEGATIVE (NEGATIVE); METHADONE URINE NEGATIVE (NEGATIVE); OPIATES URINE NEGATIVE (NEGATIVE); PHENCYCLIDINE URINE NEGATIVE (NEGATIVE)
[2019-01-28] MEDS ORDERED: MOM 30ML SUSPENSION UDC PO PRN (14:15)
[2019-01-28] MEDS ORDERED: ACETAMINOPHEN TAB 650MG DOSE (2X325MG) PO PRN (14:15)
[2019-01-28] MEDS ORDERED: MAALOX 30 ML SUSP *UDC PO PRN (14:15)
[2019-01-28 16:04] VITALS: BP 131/85
[2019-01-28] MEDS: PROPRANOLOL 80 MG LA CAP PO SCH (21:12)
[2019-01-28] MEDS: AMANTADINE 100 MG CAP PO SCH (21:12)
[2019-01-28] MEDS: OXcarbazepine 300 MG TAB PO SCH (21:14)
[2019-01-28] MEDS: VRAYLAR 6 MG PO SCH (21:14)
[2019-01-28] MEDS: BENZTROPINE 0.5 MG TAB PO SCH (21:14)
[2019-01-28] MEDS: traZODone 50 MG TAB PO PRN (23:58)
[2019-01-29 06:38] VITALS: BP 132/61
[2019-01-29] MEDS: hydrOXYzine 25 MG TAB PO SCH ×2 (07:38→11:47)
[2019-01-29] MEDS: AMANTADINE 100 MG CAP PO SCH ×3 (07:38→20:18)
[2019-01-29] MEDS: CALCIUM/VITAMIN D 500 MG TAB PO SCH (09:23)
[2019-01-29] MEDS: CitaloPRAM (CeleXA) 10 MG TABLET PO SCH (09:24)
[2019-01-29] MEDS: OXcarbazepine 300 MG TAB PO SCH ×2 (09:24→20:19)
[2019-01-29] MEDS: BENZTROPINE 0.5 MG TAB PO SCH ×2 (09:24→20:18)
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
--- NOTE | 2019-01-29 09:40 | MHHPEPDOC ---
General Date Of Admission: Jan 28, 2019 Legal Status: 9.39 Chief Complaint "I'm suicidal" History of Present Illness HISTORY OF THE PRESENT ILLNESS: Patient is a 33 -year-old , female, with a history of asperger's d/o and schizoaffective d/o and multiple admission to [facility] in the past for depression, mood swings, SI who was brought to ED by her mother after pt attempted to cut herself superficial with a knife as an SA per ED. In ED pt endorsed depression SI with plan to stab herself with a kitchen knife, mood swings, irritability, AH to "get drunk and jump off a bridge" that she and her mother believe are due to her celexa being decrease from 30mg daily to 20mg daily 2 wks ago. Otherwise she felt her other medications were beneficial per ED. In ED she also endorsed HI with plan to push her parents down the stairs but stated she would do that b/c "I try to think of consequence s." Pt mother also reported similar symptoms as pt described in ED that pt has been experiencing. Psychiatric Review of Systems Depression (2 or more weeks): depressed mood, difficulty concentrating, suicidal thoughts Dora (4 or more days of): denies Psychosis: denies PTSD: denies Anxiety: situational anxiety, stressor related anxiety Anxiety/ 6 months or more of: restlessness, keyed up, difficulty concentrating, irritability Past Psychiatric History Previous Psychiatric Diagnosis: autism spectrum disorder, schizoaffective disorder. Previous Psychiatric Admissions: Last [facility] admission 08/26/18 for SI, history of multiple psychiatric hospitalizations for violent outbursts and frequent suicide attempts starting from anywhere from age 7 onward Suicide Attempts: previous attempts to overdose and hang herself [facility] Mantilla and counselor - Tc Corona at [facility], [facility]. Psychiatric medications: abilify for 6yrs, severe reactions to Seroquel - oculogyric crisis. Risperdal - rash, uncontrolled shaking (extrapyramidal reaction). Past Medical History Medical Problems chronic nasal congestion and right ankle pain Head Injury: No Seizures: No Hospitalizations: No Surgeries: Yes (wisdom teeth extraction x4 in 2003) Family Medical/Psychiatric HX Medical Problems noncontributory Psychiatric Disorders: No Addiction: No Addiction History alcohol (The patient describes herself as a recovering alcoholic who attends AA), other (utox, bal negative) Social History Childhood: born and raised [place], [place]. 2 parent home, 1 younger brother Abuse/Trauma: denies Current Living Situation: lives with parents Education: high school edu, was in special education for Brain spectrum disorder Employment: unemployed, on Medicaid and SSI. 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 Social Support: parents Legal: frequent assault changes and has spent overnight in snf because of her attacks and threats to other people when she loses her temper. Marital: singe, never , no children Mental Status Examination General Appearance: well groomed, appears stated age, hospital scubs/clothing Build: overweight Demeanor: average, other (very attention seekeing) Eye Contact: average Activity: average, anxious Behavior: cooperative, restless Speech: clear, spontaneous, normal volume, reg/rate,rhythm,volume Mood: euthymic, anxious Mood "pretty good" Affect: full, appropriate, labile, congruent, anxious Thought Process: logical/linear, concrete Thought Content (Delusions): none reported, denies SI, HI, AVH Thought Content (Other): none reported, appropriate Thought Content (Aggressive): none reported Perception (Hallucinations): none reported Perception (Other): none reported Cognition (Impairment of): none reported Cognition(Intelligence Est.): average Oriented: Awake, Alert, Oriented times three Insight: fair Judgment: Fair Psychosis: Denies Diagnoses 1. Schizoaffective D/O - depressed type 2. Hx of OCD 3. Autistic Spectrum D/O (Asperger's Syndrome) 4. Alcohol use d/o in custodial remission A-FIB/CHADSVASC A-FIB History Current/History of A-Fib/PAF?: No Current PO Anticoag Therapy: No Treatment Treatment ordered: NONE Reason Anticoagulant not given: Not indicated/[id number] Assessment Pt seen and states she started feeling depressed and suicidal b/c her celexa was decreased by Dr. Oconnor recently. States she didn't want to come to the hospital but her mother convinced her to come which she thought was a good idea b/c "I don't want to kill myself." States she feels better today and states she's getting a long with her parents at home much better lately. Increased her celexa back to 30mg daily and pt is agreeable to increase. Agreeable to restarting the rest of her medications as is tolerating the well and finds them beneficial. Deneis SI with plan/intent, denies HI and HI toward parents and has no plan/intent. She denies SI/HI, hallucinations, delusions currently. She is very attention seeking and says "hi, how you doing?" every time she sees me. Feels safe here. Initial Treatment Plan 1. Patient was admitted on a 39 status. 2. Complete history was obtained. 3. With patients permission, family will be contacted and database will be expanded. 4. Patients medication regimen will be reviewed and changed accordingly. 5. Patient will be provided with protected environment. 6. Patient will be treated with individual, group, and milieu therapies. 7. Patient will receive supportive psych-education. 8. Discharge planning will commence immediately. 9. Outpatient follow-up treatment will be strongly recommended. 10. The initial treatment plan will focus initially on: * Depression. * Risk for suicide. * Substance abuse. 11. increase celexa 30mg daily, restart outpatient meds ESTIMATED LENGTH OF STAY: 5-7 DAYS. TIME SPENT COUNSELING AND COORDINATING INITIAL CARE: 60 minutes. Vital Signs Vital Signs Date Time Temp Pulse Resp B/P (MAP) Pulse Ox O2 Delivery O2 Flow Rate FiO2 01/29/19 06:38 97.8 64 18 132/61 (84) 01/28/19 13:15 100 01/28/19 09:34 Room Air Laboratory Data 24H Labs Laboratory Tests 2 01/28/19 10:01: Nucleated Red Blood Cells % (auto) 0.0, Anion Gap 3L, Glomerular Filtration Rate > 60.0, Calcium Level 9.0, Aspartate Amino Transf (AST/SGOT) 16, Alanine Aminotransferase (ALT/SGPT) 30, Alkaline Phosphatase 79, Total Bilirubin 0.1L, Direct Bilirubin < 0.1, Total Protein 7.0, Albumin 3.7, Albumin/Globulin Ratio 1.12, Thyroid Stimulating Hormone (TSH) 3.180, Human Chorionic Gonadotropin, Qual NEGATIVE, Salicylates Level < 1.7L, Acetaminophen Level < 2.0L, Ethyl Alcohol Level 0.006 01/28/19 11:42: Urine Amphetamines Screen NEGATIVE, Urine Benzodiazepines Screen NEGATIVE, Urine Opiates Screen NEGATIVE, Urine Methadone Screen NEGATIVE, Urine Barbiturates Screen NEGATIVE, Urine Phencyclidine Screen NEGATIVE, Urine Cocaine Metabolite Screen NEGATIVE, Urine Cannabinoids Screen NEGATIVE CBC/BMP Laboratory Tests 01/28/19 10:01 Red Blood Count 4.56, Mean Corpuscular Volume 87.1, Mean Corpuscular Hemoglobin 28.9, Mean Corpuscular Hemoglobin Concent 33.2, Red Cell Distribution Width 13.2 Medications Scheduled Amantadine HCl (Amantadine) 100 Mg Tablet, 100 MG PO TID, (Reported) 0800,1200,2100 Benztropine Mesylate (Benztropine Mesylate) 0.5 Mg Tablet, 0.5 MG PO Q2D, (Reported) 0800 Benztropine Mesylate (Benztropine Mesylate) 0.5 Mg Tablet, 0.5 MG PO QHS, (Reported) Calcium Carbonate/Vitamin D3 (Calcium 600-Vit D3 800 Tablet) 1 Each Tablet, 1 TAB PO DAILY, (Reported) Cariprazine HCl (Vraylar) 6 Mg Capsule, 6 MG PO QHS, (Reported) Citalopram Hydrobromide (Celexa) 20 Mg Tablet, 20 MG PO DAILY, (Reported) Hydroxyzine Pamoate (Vistaril) 25 Mg Capsule, 25 MG PO BID, (Reported) 0800,1200 Oxcarbazepine (Trileptal) 300 Mg Tablet, 300 MG PO DAILY, (Reported) Oxcarbazepine (Trileptal) 600 Mg Tablet, 600 MG PO QHS, (Reported) Propranolol HCl (Propranolol HCl ER) 80 Mg Cap.sa.24h, 80 MG PO QHS, (Reported) Vitamin E (Dl,Tocopheryl Acet) (Vitamin E) 400 Unit Capsule, 400 UNIT PO BID, (Reported) Scheduled PRN Acetaminophen (Tylenol Extra Strength) 500 Mg Tablet, 1,000 MG PO Q8H PRN for PAIN, (Reported) Melatonin (Melatonin) 3 Mg Tab.rapdis, 3-6 MG PO QHS PRN for SLEEP, (Reported) Allergies Coded Allergies: Penicillins (Verified Allergy, Intermediate, rash, 01/28/19) quetiapine (Verified Allergy, Unknown, 01/28/19) risperidone (Verified Allergy, Unknown, 01/28/19) prednisone (Verified Adverse Reaction, Intermediate, anxiety, aggitation, 01/28/19) NESHA SOSA DO Jan 29, 2019 09:40
[2019-01-29] MEDS: DOCUSATE SODIUM 100 MG CAP PO SCH ×2 (10:02→20:19)
[2019-01-29] MEDS: OMEGA-3 1000MG CAPSULE PO SCH (11:48)
[2019-01-29] MEDS: FLUTICASONE PROP 0.05% NASAL SPRAY 16 GM (FLONASE) NARES SCH (11:48)
[2019-01-29 18:05] VITALS: BP 117/56
[2019-01-29] MEDS: PROPRANOLOL 80 MG LA CAP PO SCH (20:19)
[2019-01-29] MEDS: VRAYLAR 6 MG PO SCH (20:20)
[2019-01-29] MEDS: traZODone 50 MG TAB PO PRN (21:53)
[2019-01-30 06:38] VITALS: BP 104/57
[2019-01-30] MEDS: hydrOXYzine 25 MG TAB PO SCH ×2 (07:44→12:05)
[2019-01-30] MEDS: AMANTADINE 100 MG CAP PO SCH ×3 (07:44→20:19)
[2019-01-30] MEDS: OXcarbazepine 300 MG TAB PO SCH ×2 (09:12→20:19)
[2019-01-30] MEDS: FLUTICASONE PROP 0.05% NASAL SPRAY 16 GM (FLONASE) NARES SCH (09:12)
[2019-01-30] MEDS: DOCUSATE SODIUM 100 MG CAP PO SCH ×2 (09:12→20:19)
[2019-01-30] MEDS: CALCIUM/VITAMIN D 500 MG TAB PO SCH (09:12)
[2019-01-30] MEDS: CitaloPRAM (CeleXA) 10 MG TABLET PO SCH (09:13)
[2019-01-30] MEDS: OMEGA-3 1000MG CAPSULE PO SCH (09:13)
--- NOTE | 2019-01-30 17:49 | MHIPNPDOC ---
[facility] [place] Progress Note DATE OF SERVICE: 01/30/19 HISTORY: Patient is a 33 -year-old , female, with a history of asperger's d/o and schizoaffective d/o and multiple admission [facility] in the past for depression, mood swings, SI who was brought to ED by her mother after pt attempted to cut herself superficial with a knife as an SA per ED. In ED pt endorsed depression SI with plan to stab herself with a kitchen knife, mood swings, irritability, AH to "get drunk and jump off a bridge" that she and her mother believe are due to her celexa being decrease from 30mg daily to 20mg bindu ly 2 wks ago. Otherwise she felt her other medications were beneficial per ED. In ED she also endorsed HI with plan to push her parents down the stairs but stated she would do that b/c "I try to think of consequences." Pt mother also reported similar symptoms as pt described in ED that pt has been experiencing. VITAL SIGNS: See below. NEW TEST RESULTS: See below CURRENT MEDICATIONS: See below. MENTAL STATUS EXAMINATION: General Appearance: well groomed, appears stated age, personal clothes Build: overweight Demeanor: cooperative, anxious Eye Contact: average Activity: average, anxious Behavior: cooperative, restless (constantly moving her right foot) Speech: clear, spontaneous, normal volume, reg/rate,rhythm,volume Mood: anxious Mood "angry" Affect: full, appropriate, labile, congruent, anxious Thought Process: logical/linear, concrete Thought Content (Delusions): none reported, denies SI, HI, AVH Thought Content (Other): none reported, appropriate Thought Content (Aggressive): none reported Perception (Hallucinations): none reported Perception (Other): none reported Cognition (Impairment of): none reported Cognition(Intelligence Est.): average Oriented: Awake, Alert, Oriented times three Insight: fair Judgment: Fair Psychosis: Denies Diagnoses 1. Schizoaffective D/O - depressed type 2. Hx of OCD 3. Autistic Spectrum D/O (Asperger's Syndrome) 4. Alcohol use d/o in intermodal dispatcher remission ASSESSMENT: the patient was upset because another patient was not nice to her and she took it personally, then, she became angry but she remained in behavioral control. Hydroxyzine PRN has been ordered besides the scheduled dose. s MANAGEMENT PLAN: As per Dr. Abernathy. TIME SPENT: 20 minutes. Vital Signs Vital Signs Date Time Temp Pulse Resp B/P (MAP) Pulse Ox O2 Delivery O2 Flow Rate FiO2 01/30/19 06:38 98.1 70 12 104/57 (73) 01/28/19 13:15 100 01/28/19 09:34 Room Air Current Medications Current Medications Medications (Trade) Dose Ordered Sig/Cory Route PRN Reason Start Time Stop Time Status Last Admin Dose Admin Acetaminophen (Tylenol Tab) 650 mg Q6HP PRN PO HEADACHE or DISCOMFORT 01/28/19 14:15 Al Hydrox/Mg Hydrox/Simethicone (Mylanta) 30 ml Q4HP PRN PO HEARTBURN/INDIGESTION 01/28/19 14:15 Amantadine HCl (Symmetrel) 100 mg 0800,1200,2100 PO 01/28/19 21:00 01/30/19 12:05 Benztropine Mesylate (Cogentin) 0.5 mg Q2D PO 01/29/19 09:00 01/29/19 09:24 Benztropine Mesylate (Cogentin) 0.5 mg QHS PO 01/28/19 21:00 01/29/19 20:18 Calcium/Vitamin D (Oscal D) 500 mg DAILY PO 01/29/19 09:00 01/30/19 09:12 Citalopram Hydrobromide (CeleXA) 30 mg DAILY PO 01/29/19 09:00 01/30/19 09:13 Docusate Sodium (Colace) 100 mg BID PO 01/29/19 09:00 01/30/19 09:12 Fish Oil (Rhodelia-3 (1000mg)) 2 cap DAILY PO 01/29/19 09:00 01/30/19 09:13 Fluticasone Propionate (Flonase 0.05% Nasal [place]) 2 spray DAILY NARES 01/29/19 09:00 01/30/19 09:12 Home Med (Med Rec Complete!) ASDIRECTED XX 01/28/19 12:00 01/28/19 12:06 DC Hydroxyzine HCl (Atarax) 25 mg 0800,1200 PO 01/29/19 08:00 01/30/19 12:05 Hydroxyzine HCl (Atarax) 25 mg BIDP PRN PO ANXIETY 01/30/19 17:00 Magnesium Hydroxide (Milk Of Magnesia) 30 ml DAILYPRN PRN PO CONSTIPATION 01/28/19 14:15 Oxcarbazepine (Trileptal) 300 mg DAILY PO 01/29/19 09:00 01/30/19 09:12 Oxcarbazepine (Trileptal) 600 mg QHS PO 01/28/19 21:00 01/29/19 20:19 Patient Own Medication (Patient'S Own Med) VRAYLAR 6MG PO QHS QHS PO 01/28/19 21:00 01/29/19 20:20 Propranolol HCl (Inderal La) 60 mg QHS PO 01/30/19 21:00 Propranolol HCl (Inderal La) 80 mg QHS PO 01/28/19 21:00 01/30/19 09:09 DC 01/29/19 20:19 Trazodone HCl (Desyrel) 50 mg QHSP PRN PO INSOMNIA 01/28/19 14:15 01/29/19 21:53 Allergies Coded Allergies: Penicillins (Verified Allergy, Intermediate, rash, 01/28/19) quetiapine (Verified Allergy, Unknown, 01/28/19) risperidone (Verified Allergy, Unknown, 01/28/19) prednisone (Verified Adverse Reaction, Intermediate, anxiety, aggitation, 01/28/19) PRIMO GOLDSTEIN MD Jan 30, 2019 17:41
[2019-01-30 18:00] VITALS: BP 142/84
[2019-01-30] MEDS: VRAYLAR 6 MG PO SCH (20:19)
[2019-01-30] MEDS: BENZTROPINE 0.5 MG TAB PO SCH (20:20)
[2019-01-30] MEDS: hydrOXYzine 25 MG TAB PO PRN (21:36)
[2019-01-30] MEDS: traZODone 50 MG TAB PO PRN (21:38)
[2019-01-30] MEDS: PROPRANOLOL 60 MG LA CAP PO SCH (21:38)
[2019-01-31 06:27] VITALS: BP 127/79
[2019-01-31] MEDS: FLUTICASONE PROP 0.05% NASAL SPRAY 16 GM (FLONASE) NARES SCH (09:07)
[2019-01-31] MEDS: OXcarbazepine 300 MG TAB PO SCH ×2 (09:08→20:41)
[2019-01-31] MEDS: CALCIUM/VITAMIN D 500 MG TAB PO SCH (09:08)
[2019-01-31] MEDS: AMANTADINE 100 MG CAP PO SCH ×3 (09:08→20:41)
[2019-01-31] MEDS: DOCUSATE SODIUM 100 MG CAP PO SCH ×2 (09:08→20:41)
[2019-01-31] MEDS: hydrOXYzine 25 MG TAB PO SCH ×2 (09:08→11:58)
[2019-01-31] MEDS: CitaloPRAM (CeleXA) 10 MG TABLET PO SCH (09:08)
[2019-01-31] MEDS: BENZTROPINE 0.5 MG TAB PO SCH ×2 (09:09→20:41)
[2019-01-31] MEDS: OMEGA-3 1000MG CAPSULE PO SCH (09:09)
[2019-01-31 18:00] VITALS: BP 130/73
--- NOTE | 2019-01-31 18:23 | MHIPNPDOC ---
[facility] Progress Note Progress Note DATE OF SERVICE: 01/31/19 HISTORY: Patient is a 33 -year-old , female, with a history of asperger's d/o and schizoaffective d/o and multiple admission to [facility] in the past for depression, mood swings, SI who was brought to ED by her mother after pt attempted to cut herself superficial with a knife as an SA per ED. In ED pt endorsed depression SI with plan to stab herself with a kitchen knife, mood swings, irritability, AH to "get drunk and jump off a bridge" that she and her mother believe are due to her celexa being decrease from 30mg daily to 20mg bindu ly 2 wks ago. Otherwise she felt her other medications were beneficial per ED. In ED she also endorsed HI with plan to push her parents down the stairs but stated she would do that b/c "I try to think of consequences." Pt mother also reported similar symptoms as pt described in ED that pt has been experiencing. VITAL SIGNS: See below. NEW TEST RESULTS: See below CURRENT MEDICATIONS: See below. MENTAL STATUS EXAMINATION: General Appearance: well groomed, appears stated age, personal clothes Build: overweight Demeanor: cooperative, anxious Eye Contact: average Activity: average, anxious Behavior: cooperative, restless (constantly moving her right foot) Speech: clear, spontaneous, normal volume, reg/rate,rhythm,volume Mood: anxious Mood "angry" Affect: full, appropriate, labile, congruent, anxious Thought Process: logical/linear, concrete Thought Content (Delusions): none reported, denies SI, HI, AVH Thought Content (Other): none reported, appropriate Thought Content (Aggressive): none reported Perception (Hallucinations): none reported Perception (Other): none reported Cognition (Impairment of): none reported Cognition(Intelligence Est.): average Oriented: Awake, Alert, Oriented times three Insight: fair Judgment: Fair Psychosis: Denies Diagnoses 1. Schizoaffective D/O - depressed type 2. Hx of OCD 3. Autistic Spectrum D/O (Asperger's Syndrome) 4. Alcohol use d/o in manager terminal remission ASSESSMENT: The patient is stable, she is still anxious but not extremely. She is not suicidal, not homicidal, not psychotic, she has been under behavioral control MANAGEMENT PLAN: As per Dr. Abernathy. TIME SPENT: 20 minutes. Vital Signs Vital Signs Date Time Temp Pulse Resp B/P (MAP) Pulse Ox O2 Delivery O2 Flow Rate FiO2 01/31/19 06:27 97.4 89 14 127/79 (95) 01/28/19 13:15 100 01/28/19 09:34 Room Air Current Medications Current Medications Medications (Trade) Dose Ordered Sig/Cory Route PRN Reason Start Time Stop Time Status Last Admin Dose Admin Acetaminophen (Tylenol Tab) 650 mg Q6HP PRN PO HEADACHE or DISCOMFORT 01/28/19 14:15 Al Hydrox/Mg Hydrox/Simethicone (Mylanta) 30 ml Q4HP PRN PO HEARTBURN/INDIGESTION 01/28/19 14:15 Amantadine HCl (Symmetrel) 100 mg 0800,1200,2100 PO 01/28/19 21:00 01/31/19 09:08 Benztropine Mesylate (Cogentin) 0.5 mg Q2D PO 01/29/19 09:00 01/31/19 09:09 Benztropine Mesylate (Cogentin) 0.5 mg QHS PO 01/28/19 21:00 01/30/19 20:20 Calcium/Vitamin D (Oscal D) 500 mg DAILY PO 01/29/19 09:00 01/31/19 09:08 Citalopram Hydrobromide (CeleXA) 30 mg DAILY PO 01/29/19 09:00 01/31/19 09:08 Docusate Sodium (Colace) 100 mg BID PO 01/29/19 09:00 01/31/19 09:08 Fish Oil ([place]-3 (1000mg)) 2 cap DAILY PO 01/29/19 09:00 01/31/19 09:09 Fluticasone Propionate (Flonase 0.05% Nasal [place]) 2 spray DAILY NARES 01/29/19 09:00 01/31/19 09:07 Home Med (Med Rec Complete!) ASDIRECTED XX 01/28/19 12:00 01/28/19 12:06 DC Hydroxyzine HCl (Atarax) 25 mg 0800,1200 PO 01/29/19 08:00 01/31/19 09:08 Hydroxyzine HCl (Atarax) 25 mg BIDP PRN PO ANXIETY 01/30/19 17:00 01/30/19 21:36 Magnesium Hydroxide (Milk Of Magnesia) 30 ml DAILYPRN PRN PO CONSTIPATION 01/28/19 14:15 Oxcarbazepine (Trileptal) 300 mg DAILY PO 01/29/19 09:00 01/31/19 09:08 Oxcarbazepine (Trileptal) 600 mg QHS PO 01/28/19 21:00 01/30/19 20:19 Patient Own Medication (Patient'S Own Med) VRAYLAR 6MG PO QHS QHS PO 01/28/19 21:00 01/30/19 20:19 Propranolol HCl (Inderal La) 60 mg QHS PO 01/30/19 21:00 01/30/19 21:38 Propranolol HCl (Inderal La) 80 mg QHS PO 01/28/19 21:00 01/30/19 09:09 DC 01/29/19 20:19 Trazodone HCl (Desyrel) 50 mg QHSP PRN PO INSOMNIA 01/28/19 14:15 01/30/19 21:38 Allergies Coded Allergies: Penicillins (Verified Allergy, Intermediate, rash, 01/28/19) quetiapine (Verified Allergy, Unknown, 01/28/19) risperidone (Verified Allergy, Unknown, 01/28/19) prednisone (Verified Adverse Reaction, Intermediate, anxiety, aggitation, 01/28/19) PRIMO GOLDSTEIN MD Jan 31, 2019 11:57
[2019-01-31] MEDS: VRAYLAR 6 MG PO SCH (20:40)
[2019-01-31] MEDS: PROPRANOLOL 60 MG LA CAP PO SCH (21:38)
[2019-01-31] MEDS: traZODone 50 MG TAB PO PRN (21:39)
[2019-02-01 07:41] VITALS: BP 114/55
[2019-02-01] MEDS: AMANTADINE 100 MG CAP PO SCH ×3 (08:15→20:54)
[2019-02-01] MEDS: hydrOXYzine 25 MG TAB PO SCH ×2 (08:15→12:20)
[2019-02-01] MEDS: DOCUSATE SODIUM 100 MG CAP PO SCH ×2 (08:15→20:54)
[2019-02-01] MEDS: OXcarbazepine 300 MG TAB PO SCH ×2 (08:15→20:54)
[2019-02-01] MEDS: CitaloPRAM (CeleXA) 10 MG TABLET PO SCH (08:15)
[2019-02-01] MEDS: CALCIUM/VITAMIN D 500 MG TAB PO SCH (08:15)
[2019-02-01] MEDS: OMEGA-3 1000MG CAPSULE PO SCH (08:16)
[2019-02-01] MEDS: FLUTICASONE PROP 0.05% NASAL SPRAY 16 GM (FLONASE) NARES SCH (08:17)
--- NOTE | 2019-02-01 11:14 | MHIPNPDOC ---
[facility] Progress Note Progress Note DATE OF SERVICE: 02/01/19 HISTORY: Patient is a 33 -year-old , female, with a history of asperger's d/o and schizoaffective d/o and multiple admission to [facility] in the past for depression, mood swings, SI who was brought to ED by her mother after pt attempted to cut herself superficial with a knife as an SA per ED. In ED pt endorsed depression SI with plan to stab herself with a kitchen knife, mood swings, irritability, AH to "get drunk and jump off a bridge" that she and her mother believe are due to her celexa being decrease from 30mg daily to 20mg da angelique 2 wks ago. Otherwise she felt her other medications were beneficial per ED. In ED she also endorsed HI with plan to push her parents down the stairs but stated she would do that b/c "I try to think of consequences." Pt mother also reported similar symptoms as pt described in ED that pt has been experiencing. VITAL SIGNS: See below. NEW TEST RESULTS: See below CURRENT MEDICATIONS: See below. MENTAL STATUS EXAMINATION: General Appearance: well groomed, appears stated age, personal clothes Build: overweight Demeanor: cooperative Eye Contact: average Activity: average Behavior: cooperative Speech: clear, spontaneous, normal volume, reg/rate,rhythm,volume Mood: euthymic Mood "ok" Affect: full, appropriate, congruent Thought Process: logical/linear, concrete Thought Content (Delusions): none reported, denies SI, HI, AVH Thought Content (Other): none reported, appropriate Thought Content (Aggressive): none reported Perception (Hallucinations): none reported Perception (Other): none reported Cognition (Impairment of): none reported Cognition(Intelligence Est.): average Oriented: Awake, Alert, Oriented times three Insight: fair Judgment: Fair Psychosis: Denies Diagnoses 1. Schizoaffective D/O - depressed type 2. Hx of OCD 3. Autistic Spectrum D/O (Asperger's Syndrome) 4. Alcohol use d/o in nursing home remission ASSESSMENT: Pt seen and states she was in art therapy as able to discovery why she's here and why she was having thoughts of suicide and she states she believes it's "guilt" b/c "I can't forgive myself for the terrible things I've done in the past (yelling at people I love, hurting their feelings). States when asked that she has apologized to those she felt she hurt and that they have forgiven her. Used some CBT therapy to aid pt to realized that she isn't a bad person, people like her which pt found helpful. Talked about the "potential boyfriend's" she has in AA that "maybe like her" but for now are just friends. Stressed to patient that friendship first is always a good way to start relationship as that other person should be nice and trust worthy as pt possibly not understanding social ques from others, men, who may just talked with her occasionally. States her parents also stress pt to be friends rather than romantic. States overall her mood is "ok," her meds are beneficial, groups are beneficial. Denies SI/HI, hallucinations, delusions. Feels safe here. MANAGEMENT PLAN: continue plan and medications listed below. TIME SPENT: 30 minutes. Vital Signs Vital Signs Date Time Temp Pulse Resp B/P (MAP) Pulse Ox O2 Delivery O2 Flow Rate FiO2 02/01/19 07:41 97.3 65 16 114/55 (74) 01/28/19 13:15 100 01/28/19 09:34 Room Air Current Medications Current Medications Medications (Trade) Dose Ordered Sig/Cory Route PRN Reason Start Time Stop Time Status Last Admin Dose Admin Acetaminophen (Tylenol Tab) 650 mg Q6HP PRN PO HEADACHE or DISCOMFORT 01/28/19 14:15 Al Hydrox/Mg Hydrox/Simethicone (Mylanta) 30 ml Q4HP PRN PO HEARTBURN/INDIGESTION 01/28/19 14:15 Amantadine HCl (Symmetrel) 100 mg 0800,1200,2100 PO 01/28/19 21:00 02/01/19 08:15 Benztropine Mesylate (Cogentin) 0.5 mg Q2D PO 01/29/19 09:00 01/31/19 09:09 Benztropine Mesylate (Cogentin) 0.5 mg QHS PO 01/28/19 21:00 01/31/19 20:41 Calcium/Vitamin D (Oscal D) 500 mg DAILY PO 01/29/19 09:00 02/01/19 08:15 Citalopram Hydrobromide (CeleXA) 30 mg DAILY PO 01/29/19 09:00 02/01/19 08:15 Docusate Sodium (Colace) 100 mg BID PO 01/29/19 09:00 02/01/19 08:15 Fish Oil (Sie[place]-3 (1000mg)) 2 cap DAILY PO 01/29/19 09:00 02/01/19 08:16 Fluticasone Propionate (Flonase 0.05% Nasal [place]) 2 spray DAILY NARES 01/29/19 09:00 02/01/19 08:17 Home Med (Med Rec Complete!) ASDIRECTED XX 01/28/19 12:00 01/28/19 12:06 DC Hydroxyzine HCl (Atarax) 25 mg 0800,1200 PO 01/29/19 08:00 02/01/19 08:15 Hydroxyzine HCl (Atarax) 25 mg BIDP PRN PO ANXIETY 01/30/19 17:00 01/30/19 21:36 Magnesium Hydroxide (Milk Of Magnesia) 30 ml DAILYPRN PRN PO CONSTIPATION 01/28/19 14:15 01/31/19 20:41 Oxcarbazepine (Trileptal) 300 mg DAILY PO 01/29/19 09:00 02/01/19 08:15 Oxcarbazepine (Trileptal) 600 mg QHS PO 01/28/19 21:00 01/31/19 20:41 Patient Own Medication (Patient'S Own Med) VRAYLAR 6MG PO QHS QHS PO 01/28/19 21:00 01/31/19 20:40 Propranolol HCl (Inderal La) 60 mg QHS PO 01/30/19 21:00 01/31/19 21:38 Propranolol HCl (Inderal La) 80 mg QHS PO 01/28/19 21:00 01/30/19 09:09 DC 01/29/19 20:19 Trazodone HCl (Desyrel) 50 mg QHSP PRN PO INSOMNIA 01/28/19 14:15 01/31/19 21:39 Allergies Coded Allergies: Penicillins (Verified Allergy, Intermediate, rash, 01/28/19) quetiapine (Verified Allergy, Unknown, 01/28/19) risperidone (Verified Allergy, Unknown, 01/28/19) prednisone (Verified Adverse Reaction, Intermediate, anxiety, aggitation, 01/28/19) NESHA SOSA DO Feb 01, 2019 9:16 am
[2019-02-01 18:05] VITALS: BP 122/71
[2019-02-01] MEDS: VRAYLAR 6 MG PO SCH (20:54)
[2019-02-01] MEDS: BENZTROPINE 0.5 MG TAB PO SCH (20:57)
[2019-02-01] MEDS: PROPRANOLOL 60 MG LA CAP PO SCH (20:57)
[2019-02-01] MEDS: hydrOXYzine 25 MG TAB PO PRN (21:00)
[2019-02-01] MEDS: traZODone 50 MG TAB PO PRN (22:39)
[2019-02-02 07:17] VITALS: BP 125/80
[2019-02-02] MEDS: AMANTADINE 100 MG CAP PO SCH ×3 (08:36→20:26)
[2019-02-02] MEDS: CALCIUM/VITAMIN D 500 MG TAB PO SCH (08:36)
[2019-02-02] MEDS: hydrOXYzine 25 MG TAB PO SCH ×2 (08:36→12:04)
[2019-02-02] MEDS: BENZTROPINE 0.5 MG TAB PO SCH ×2 (08:36→20:26)
[2019-02-02] MEDS: OMEGA-3 1000MG CAPSULE PO SCH (08:36)
[2019-02-02] MEDS: OXcarbazepine 300 MG TAB PO SCH ×2 (08:36→20:26)
[2019-02-02] MEDS: FLUTICASONE PROP 0.05% NASAL SPRAY 16 GM (FLONASE) NARES SCH (08:36)
[2019-02-02] MEDS: CitaloPRAM (CeleXA) 10 MG TABLET PO SCH (08:36)
[2019-02-02] MEDS: DOCUSATE SODIUM 100 MG CAP PO SCH ×2 (08:36→20:26)
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
[2019-02-02 17:42] VITALS: BP 109/56
[2019-02-02 18:00] VITALS: BP 109/56
[2019-02-02 20:26] VITALS: BP 109/56
[2019-02-02] MEDS: VRAYLAR 6 MG PO SCH (20:26)
[2019-02-02] MEDS: PROPRANOLOL 60 MG LA CAP PO SCH (20:26)
[2019-02-02] MEDS: traZODone 50 MG TAB PO PRN (22:03)
[2019-02-03 06:43] VITALS: BP 144/84
[2019-02-03] MEDS: hydrOXYzine 25 MG TAB PO SCH ×2 (08:25→11:06)
[2019-02-03] MEDS: CitaloPRAM (CeleXA) 10 MG TABLET PO SCH (08:25)
[2019-02-03] MEDS: DOCUSATE SODIUM 100 MG CAP PO SCH (08:25)
[2019-02-03] MEDS: OXcarbazepine 300 MG TAB PO SCH (08:26)
[2019-02-03] MEDS: CALCIUM/VITAMIN D 500 MG TAB PO SCH (08:26)
[2019-02-03] MEDS: AMANTADINE 100 MG CAP PO SCH (08:26)
[2019-02-03] MEDS: OMEGA-3 1000MG CAPSULE PO SCH (08:26)
[2019-02-03] MEDS: FLUTICASONE PROP 0.05% NASAL SPRAY 16 GM (FLONASE) NARES SCH (08:27)
[2019-02-03] MEDS ORDERED: BENZ0.5T23 PO ×2 (10:30)
[2019-02-03] MEDS ORDERED: CELE20TA PO (10:30)
[2019-02-03] MEDS ORDERED: VIST25CA PO (10:30)
[2019-02-03] MEDS ORDERED: TRIL1TAB PO (10:30)
[2019-02-03] MEDS ORDERED: VRAY6CAP PO (10:30)
[2019-02-03] MEDS ORDERED: TRIL600T PO (10:30)
[2019-02-03] MEDS ORDERED: AMAN100T PO (10:30)
[2019-02-03] MEDS ORDERED: PROP80CA PO (10:30)
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
[2019-02-03] MEDS ORDERED: CELE10TA PO (11:18)
== END 2019-02-03 11:15 | disposition home or self-care (01) | DRG 750 ==
LOC: M ED 09:34 → M ED INP 14:09 → M PSY 15:14
PROVIDERS: ADMIT Psychiatry & Neurology Psychiatry; ATTEND Psychiatry & Neurology Psychiatry
DX: F25.1 Schizoaffective disorder, depressive type (principal); F84.0 Autistic disorder; Z79.899 Other long term (current) drug therapy; Z88.0 Allergy status to penicillin; Z88.8 Allergy status to other drugs, medicaments and biological substances; F42.9 Obsessive-compulsive disorder, unspecified; F41.9 Anxiety disorder, unspecified; E66.9 Obesity, unspecified; K59.00 Constipation, unspecified

== ENCOUNTER → 2019-02-05 | Outpatient (CLI) | payer MEDICAID ==
[~2019-02-05] MED LIST changes: +ACET-897 PO; +AMAN100T PO; +CELE10TA PO; +MELA3TAB49 PO; +PROP80CA PO; +TRIL1TAB PO; +TRIL600T PO; +VITA-55 PO; +VRAY6CAP PO
[2019-02-05 13:42] LABS: ALBUMIN 3.5 GM/DL (3.2-5.2); ALT/SGPT 37 U/L (12-78); BILIRUBIN,DIRECT < 0.1 MG/DL (0.0-0.2); BILIRUBIN,TOTAL 0.4 MG/DL (0.2-1.0); CARBON DIOXIDE LEVEL 27 MEQ/L (21-32); CHLORIDE LEVEL 106 MEQ/L (98-107); POTASSIUM SERUM 4.7 MEQ/L (3.5-5.1); SODIUM LEVEL 140 MEQ/L (136-145); TOTAL PROTEIN 6.9 GM/DL (6.4-8.2)
[2019-02-05 13:58] LABS: HEMOGLOBIN A1c 5.8 %
[2019-02-08 11:17] LABS: OXCARBAZEPINE 14 ug/mL (10-35)
== END ==
LOC: M SMT 08:04
PROVIDERS: ATTEND Psychiatry & Neurology Psychiatry
DX: F31.9 Bipolar disorder, unspecified (principal)

== ENCOUNTER → 2019-02-05 | Outpatient (CLI) | payer MEDICAID ==
[2019-02-05 13:56] LABS: CHOLESTEROL RISK RATIO 4.204 (<5)
== END ==
LOC: M SMT 08:09
PROVIDERS: ATTEND Family Medicine
DX: Z13.220 Encounter for screening for lipoid disorders (principal)

== ENCOUNTER 2019-03-20 17:47 | Inpatient (IN) | payer MEDICAID ==
[~2019-03-20] VITALS: Ht 157.5 cm; Wt 91.5 kg
[~2019-03-20 17:47] MED LIST changes: -MELA3TAB PO; +MELA3TAB63 PO
[2019-03-20] MEDS ORDERED: TRIL600T PO (18:31)
[2019-03-20] MEDS ORDERED: VRAY1.5C PO (18:31)
[2019-03-20] MEDS ORDERED: TRIL1TAB PO (18:31)
[2019-03-20] MEDS ORDERED: VITA-157 PO (18:31)
[2019-03-20 18:39] LABS: HEMATOCRIT 38.8 % (36.0-47.0); HEMOGLOBIN 12.8 g/dl (12.0-15.5); MEAN CORPUSCULAR HEMOGLOBIN 28.3 pg (27.0-33.0); MEAN CORPUSCULAR VOLUME 85.8 fl (80.0-96.0); PLATELET COUNT, AUTOMATED 230 10^3/uL (150-450); RED BLOOD COUNT 4.52 10^6/uL (4.00-5.40); WHITE BLOOD COUNT 7.5 10^3/uL (4.0-10.0)
[2019-03-20 19:12] LABS: ACETAMINOPHEN LEVEL < 2.0 UG/ML (10.0-30.0); ALBUMIN 3.4 GM/DL (3.2-5.2); ALT/SGPT 26 U/L (12-78); BILIRUBIN,DIRECT < 0.1 MG/DL (0.0-0.2); BILIRUBIN,TOTAL 0.1 MG/DL (0.2-1.0); BLOOD UREA NITROGEN 13 MG/DL (7-18); CALCIUM LEVEL 8.9 MG/DL (8.5-10.1); CARBON DIOXIDE LEVEL 26 MEQ/L (21-32); CHLORIDE LEVEL 106 MEQ/L (98-107); ETHYL ALCOHOL (ETHANOL) < 0.003 % (0.000-0.010); GLOMERULAR FILTRATION RATE > 60.0 (>60); GLUCOSE, FASTING 98 MG/DL (70-100); POTASSIUM SERUM 4.6 MEQ/L (3.5-5.1); SALICYLATE LEVEL < 1.7 MG/DL (5.0-30.0); SODIUM LEVEL 139 MEQ/L (136-145); TOTAL PROTEIN 6.8 GM/DL (6.4-8.2)
[2019-03-20 19:13] LABS: HCG, SERUM QUALITATIVE NEGATIVE (NEGATIVE)
[2019-03-20] MEDS ORDERED: VRAY6CAP PO (19:58)
[2019-03-20] MEDS ORDERED: AMAN100T PO (20:03)
[2019-03-20] MEDS ORDERED: CITA20TA6 PO (20:03)
[2019-03-20] MEDS ORDERED: BENZ0.5T23 PO ×2 (20:03)
[2019-03-20] MEDS ORDERED: PROP60CA PO (20:06)
[2019-03-20] MEDS ORDERED: HYDR1CAP25 PO (20:07)
[2019-03-20 21:49] LABS: AMPHETAMINES LEVEL URINE NEGATIVE (NEGATIVE); BARBITURATES URINE NEGATIVE (NEGATIVE); BENZODIAZEPINES URINE NEGATIVE (NEGATIVE); CANNABINOIDS URINE NEGATIVE (NEGATIVE); COCAINE METABOLITE URINE NEGATIVE (NEGATIVE); METHADONE URINE NEGATIVE (NEGATIVE); OPIATES URINE NEGATIVE (NEGATIVE); PHENCYCLIDINE URINE NEGATIVE (NEGATIVE)
[2019-03-20] MEDS ORDERED: ALPRAZolam 0.25 MG TAB PO ONE (22:00)
[2019-03-20] MEDS ORDERED: BENZTROPINE 0.5 MG TAB PO ONE (22:30)
[2019-03-20] MEDS ORDERED: AMANTADINE 100MG TABLET PO ONE (22:30)
[2019-03-20] MEDS ORDERED: ENTER DRUG NAME HERE (PATIENT'S OWN MED) PO SCH ×2 (22:30→22:45)
[2019-03-20] MEDS ORDERED: ENTER DRUG NAME HERE (PATIENT'S OWN MED) PO ONE (23:00)
[2019-03-21] MEDS ORDERED: OXcarbazepine 300 MG TAB PO ONE ×2 (00:07→19:30)
[2019-03-21] MEDS ORDERED: PROPRANOLOL 60 MG LA CAP PO ONE (00:07)
[2019-03-21] MEDS ORDERED: VRAYLAR 1.5 MG PO ONE (00:08)
[2019-03-21] MEDS ORDERED: VRAYLAR 6 MG PO ONE (00:15)
[2019-03-21] MEDS ORDERED: chlorproMAZINE INJ 50MG/2ML AMP (J3230) IM STA (05:59)
[2019-03-21] MEDS ORDERED: CitaloPRAM (CeleXA) 20 MG TAB PO ONE (08:15)
[2019-03-21] MEDS ORDERED: hydrOXYzine 25 MG TAB PO ONE ×2 (08:15→12:00)
[2019-03-21] MEDS: OXcarbazepine 300 MG TAB PO SCH (08:42)
[2019-03-21] MEDS ORDERED: PROPRANOLOL 60 MG LA CAP PO SCH (09:00)
--- NOTE | 2019-03-21 12:20 | ECGEPIP ---
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
[2019-03-21] MEDS ORDERED: AMANTADINE 100MG TABLET PO ONE ×2 (13:45→19:30)
[2019-03-21] MEDS ORDERED: PROPRANOLOL 10 MG TAB PO ONE (19:30)
[2019-03-21] MEDS ORDERED: VITAMIN E 400 INTERNATIONAL UNITS CAP PO ONE (19:30)
[2019-03-21] MEDS ORDERED: BENZTROPINE 0.5 MG TAB PO ONE (19:30)
[2019-03-21] MEDS ORDERED: ENTER DRUG NAME HERE (PATIENT'S OWN MED) PO ONE ×2 (19:30)
[2019-03-22] MEDS ORDERED: METAL LOCK LOOP XX ONE (01:19)
[2019-03-22] MEDS: OXcarbazepine 300 MG TAB PO SCH ×2 (08:21→20:21)
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
[2019-03-22] MEDS: BENZTROPINE 0.5 MG TAB PO SCH ×2 (09:00→20:20)
[2019-03-22] MEDS ORDERED: BENZTROPINE 0.5 MG TAB PO SCH (09:00)
[2019-03-22] MEDS ORDERED: MAALOX 30 ML SUSP *UDC PO PRN (12:45)
[2019-03-22] MEDS ORDERED: ACETAMINOPHEN 500 MG TAB PO PRN (12:45)
[2019-03-22] MEDS ORDERED: ACETAMINOPHEN TAB 650MG DOSE (2X325MG) PO PRN (12:45)
[2019-03-22] MEDS ORDERED: MOM 30ML SUSPENSION UDC PO PRN (12:45)
[2019-03-22 13:05] VITALS: BP 127/89
[2019-03-22] MEDS: CitaloPRAM (CeleXA) 20 MG TAB PO SCH (15:56)
[2019-03-22] MEDS: hydrOXYzine 25 MG TAB PO SCH (15:56)
[2019-03-22] MEDS: CALCIUM/VITAMIN D 500 MG TAB PO SCH (16:14)
[2019-03-22] MEDS: AMANTADINE 100MG TABLET PO SCH ×2 (16:25→20:21)
--- NOTE | 2019-03-22 17:01 | CR.PDOC ---
General Date of Consultation: Mar 22, 2019 Consultation REASON FOR CONSULTATION/CHIEF COMPLAINT: Physical examination HISTORY OF PRESENT ILLNESS: Patient is 33 years old male with past medical histo ry of prediabetes, anxiety, depression, schizoaffective disorder, who was admitted to the hospital after suicidal attempt. He denied any cardiovascular problem, breathing problem, GI problem or dysuria. She denies fever, chills, nausea, vomiting, shortness of breath, palpitations, diarrhea or dysuria. She complains of the rash on the breast fold ALLERGIES: Please see below. HOME MEDICATIONS: Please see below. PAST MEDICAL HISTORY: See above PAST SURGICAL HISTORY: None FAMILY HISTORY: Father: Hyperlipidemia, diabetes Mother: Hyperlipidemia SOCIAL HISTORY: Tobacco use: Denied ETOH: Alcohol abuse Illicit drug use: Denied IV drug use: Denied PHYSICAL EXAMINATION: VITAL SIGNS: Please see below. GENERAL APPEARANCE: NAD HEENT: PERRLA, EOMI RESPIRATORY: CTA CARDIOVASCULAR: S1-S2 ABDOMEN: Nontender nondistended EXTREMITIES: No swelling Skin: There is erythema on the breast fold NEUROLOGICAL: Cranial nerves from 2-12 intact LABORATORY DATA: Please see below. ASSESSMENT/PLAN: Patient does not have any acute diseases besides of her psychiatric diseases. Rash Most likely Pauline infection on the breast fold. Nystatin powder application on the breast fold Vital Signs/I&O Vital Signs Date Time Temp Pulse Resp B/P (MAP) Pulse Ox O2 Delivery O2 Flow Rate FiO2 03/22/19 13:05 98.2 87 17 127/89 (102) 100 03/22/19 13:05 Room Air Allergies Coded Allergies: Penicillins (Verified Allergy, Intermediate, rash, 01/28/19) quetiapine (Verified Allergy, Unknown, 01/28/19) risperidone (Verified Allergy, Unknown, 01/28/19) prednisone (Verified Adverse Reaction, Intermediate, anxiety, aggitation, 01/28/19) Home Medications Scheduled Amantadine HCl (Amantadine) 100 Mg Tablet, 100 MG PO TID, (Reported) Benztropine Mesylate (Benztropine Mesylate) 0.5 Mg Tablet, 0.5 MG PO Q2D, (Reported) Benztropine Mesylate (Benztropine Mesylate) 0.5 Mg Tablet, 0.5 MG PO QHS, (Reported) Calcium Carbonate/Vitamin D3 (Calcium 600-Vit D3 800 Tablet) 1 Each Tablet, 1 TAB PO DAILY, (Reported) Cariprazine HCl (Vraylar) 1.5 Mg Capsule, 1.5 MG PO QHS, (Reported) TAKES WITH 6MG CAPSULE FOR TOTAL OF 7.5MG Cariprazine HCl (Vraylar) 6 Mg Capsule, 6 MG PO QHS, (Reported) TAKES WITH 1.5MG CAP FOR TOTAL OF 7.5 MG Citalopram Hydrobromide (Citalopram HBr) 20 Mg Tablet, 20 MG PO DAILY, (Reported) Hydroxyzine Pamoate (Hydroxyzine Pamoate) 25 Mg Capsule, 25 MG PO BID, (Reported) TAKES AT 0800 AND 1200 Oxcarbazepine (Trileptal) 300 Mg Tablet, 300 MG PO QAM, (Reported) Oxcarbazepine (Trileptal) 600 Mg Tablet, 600 MG PO QHS, (Reported) Propranolol HCl (Propranolol HCl ER) 60 Mg Cap.sa.24h, 60 MG PO QHS, (Reported) Vitamin E (Dl,Tocopheryl Acet) (Vitamin E) 400 Unit Capsule, 400 UNIT PO BID, (Reported) Scheduled PRN Acetaminophen (Tylenol Extra Strength) 500 Mg Tablet, 1,000 MG PO Q8H PRN for PAIN, (Reported) Melatonin (Melatonin) 3 Mg Tab.rapdis, 3-6 MG PO QHS PRN for SLEEP, (Reported) OLGA NANCE DO Mar 22, 2019 17:01
[2019-03-22] MEDS: NYSTATIN 100,000 UNITS/GM TOPICAL PWD 15 GM TOP SCH (20:24)
[2019-03-22] MEDS ORDERED: VRAYLAR 1.5 MG PO SCH (21:00)
[2019-03-22] MEDS: VITAMIN E 400 INTERNATIONAL UNITS CAP PO SCH (21:00)
[2019-03-22] MEDS ORDERED: VRAYLAR 6 MG PO SCH (21:00)
[2019-03-22] MEDS: PROPRANOLOL 60 MG LA CAP PO SCH (21:00)
[2019-03-23 07:00] VITALS: BP 116/77
[2019-03-23] MEDS: CALCIUM/VITAMIN D 500 MG TAB PO SCH (08:22)
[2019-03-23] MEDS: AMANTADINE 100MG TABLET PO SCH ×3 (08:22→20:25)
[2019-03-23] MEDS: VITAMIN E 400 INTERNATIONAL UNITS CAP PO SCH ×2 (08:23→20:26)
[2019-03-23] MEDS: NYSTATIN 100,000 UNITS/GM TOPICAL PWD 15 GM TOP SCH ×2 (08:23→20:26)
[2019-03-23] MEDS: hydrOXYzine 25 MG TAB PO SCH ×2 (08:24→11:48)
[2019-03-23] MEDS: OXcarbazepine 300 MG TAB PO SCH ×2 (08:24→20:25)
[2019-03-23] MEDS: CitaloPRAM (CeleXA) 20 MG TAB PO SCH (08:24)
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
[2019-03-23] MEDS ORDERED: BREXPIPRAZOLE 2MG TABLET (REXULTI) PO ONE (12:00)
[2019-03-23 16:50] VITALS: BP 134/78
[2019-03-23] MEDS: PROPRANOLOL 60 MG LA CAP PO SCH (20:26)
[2019-03-23] MEDS: BENZTROPINE 0.5 MG TAB PO SCH (20:26)
[2019-03-24 06:32] VITALS: BP 124/80
[2019-03-24] MEDS: hydrOXYzine 25 MG TAB PO SCH ×2 (07:48→12:06)
[2019-03-24] MEDS: CALCIUM/VITAMIN D 500 MG TAB PO SCH (08:10)
[2019-03-24] MEDS: OXcarbazepine 300 MG TAB PO SCH ×2 (08:10→20:43)
[2019-03-24] MEDS: BENZTROPINE 0.5 MG TAB PO SCH ×2 (08:10→20:43)
[2019-03-24] MEDS: BREXPIPRAZOLE 2MG TABLET (REXULTI) PO SCH (08:10)
[2019-03-24] MEDS: VITAMIN E 400 INTERNATIONAL UNITS CAP PO SCH ×2 (08:10→20:44)
[2019-03-24] MEDS: CitaloPRAM (CeleXA) 20 MG TAB PO SCH (08:10)
[2019-03-24] MEDS: AMANTADINE 100MG TABLET PO SCH ×3 (08:10→20:44)
[2019-03-24] MEDS: NYSTATIN 100,000 UNITS/GM TOPICAL PWD 15 GM TOP SCH ×2 (09:00→20:44)
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
[2019-03-24 16:16] VITALS: BP 120/73
[2019-03-24] MEDS ORDERED: OLANZapine ORAL DISINTEGRATING TAB 5MG PO PRN (20:30)
[2019-03-24] MEDS: PROPRANOLOL 60 MG LA CAP PO SCH (20:44)
[2019-03-25 06:00] VITALS: BP 134/96
[2019-03-25] MEDS: BREXPIPRAZOLE 2MG TABLET (REXULTI) PO SCH (07:57)
[2019-03-25] MEDS: AMANTADINE 100MG TABLET PO SCH ×3 (07:57→21:58)
[2019-03-25] MEDS: OXcarbazepine 300 MG TAB PO SCH ×2 (07:57→21:58)
[2019-03-25] MEDS: CALCIUM/VITAMIN D 500 MG TAB PO SCH (07:57)
[2019-03-25] MEDS: hydrOXYzine 25 MG TAB PO SCH ×2 (07:57→12:07)
[2019-03-25] MEDS: CitaloPRAM (CeleXA) 20 MG TAB PO SCH (07:57)
[2019-03-25] MEDS: VITAMIN E 400 INTERNATIONAL UNITS CAP PO SCH ×2 (07:57→21:58)
[2019-03-25] MEDS: NYSTATIN 100,000 UNITS/GM TOPICAL PWD 15 GM TOP SCH ×2 (07:58→22:00)
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
[2019-03-25 18:00] VITALS: BP 152/83
[2019-03-25] MEDS: BENZTROPINE 0.5 MG TAB PO SCH (21:58)
[2019-03-25] MEDS: PROPRANOLOL 60 MG LA CAP PO SCH (21:58)
[2019-03-26 06:43] VITALS: BP 116/66
[2019-03-26] MEDS: hydrOXYzine 25 MG TAB PO SCH ×2 (07:48→11:10)
[2019-03-26] MEDS: CALCIUM/VITAMIN D 500 MG TAB PO SCH (08:49)
[2019-03-26] MEDS: BREXPIPRAZOLE 2MG TABLET (REXULTI) PO SCH (08:49)
[2019-03-26] MEDS: VITAMIN E 400 INTERNATIONAL UNITS CAP PO SCH ×2 (08:49→20:14)
[2019-03-26] MEDS: AMANTADINE 100MG TABLET PO SCH ×3 (08:49→20:14)
[2019-03-26] MEDS: BENZTROPINE 0.5 MG TAB PO SCH ×2 (08:50→20:14)
[2019-03-26] MEDS: CitaloPRAM (CeleXA) 20 MG TAB PO SCH (08:50)
[2019-03-26] MEDS: OXcarbazepine 300 MG TAB PO SCH ×2 (08:50→20:14)
[2019-03-26] MEDS: NYSTATIN 100,000 UNITS/GM TOPICAL PWD 15 GM TOP SCH ×2 (08:51→20:15)
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
[2019-03-26] MEDS ORDERED: LORazepam 1 MG TAB PO ONE (12:00)
[2019-03-26 15:44] VITALS: BP 112/58
[2019-03-26] MEDS: PROPRANOLOL 60 MG LA CAP PO SCH (20:14)
[2019-03-27 06:58] VITALS: BP 102/56
[2019-03-27] MEDS: hydrOXYzine 25 MG TAB PO SCH ×2 (07:48→11:55)
[2019-03-27] MEDS: NYSTATIN 100,000 UNITS/GM TOPICAL PWD 15 GM TOP SCH ×2 (09:00→20:05)
[2019-03-27] MEDS: CitaloPRAM (CeleXA) 20 MG TAB PO SCH (09:38)
[2019-03-27] MEDS: AMANTADINE 100MG TABLET PO SCH ×3 (09:38→20:04)
[2019-03-27] MEDS: VITAMIN E 400 INTERNATIONAL UNITS CAP PO SCH ×2 (09:38→20:04)
[2019-03-27] MEDS: OXcarbazepine 300 MG TAB PO SCH ×2 (09:38→20:05)
[2019-03-27] MEDS: BREXPIPRAZOLE 2MG TABLET (REXULTI) PO SCH (09:38)
[2019-03-27] MEDS: CALCIUM/VITAMIN D 500 MG TAB PO SCH (09:38)
[2019-03-27 16:07] VITALS: BP 117/69
[2019-03-27] MEDS: PROPRANOLOL 60 MG LA CAP PO SCH (20:04)
[2019-03-27] MEDS: BENZTROPINE 0.5 MG TAB PO SCH (20:05)
[2019-03-28 06:43] VITALS: BP 124/60
[2019-03-28] MEDS: hydrOXYzine 25 MG TAB PO SCH ×2 (07:21→12:06)
[2019-03-28] MEDS: NYSTATIN 100,000 UNITS/GM TOPICAL PWD 15 GM TOP SCH ×2 (09:00→21:00)
[2019-03-28] MEDS: VITAMIN E 400 INTERNATIONAL UNITS CAP PO SCH ×2 (09:04→21:18)
[2019-03-28] MEDS: BENZTROPINE 0.5 MG TAB PO SCH ×2 (09:04→21:18)
[2019-03-28] MEDS: BREXPIPRAZOLE 2MG TABLET (REXULTI) PO SCH (09:04)
[2019-03-28] MEDS: CALCIUM/VITAMIN D 500 MG TAB PO SCH (09:04)
[2019-03-28] MEDS: CitaloPRAM (CeleXA) 20 MG TAB PO SCH (09:04)
[2019-03-28] MEDS: AMANTADINE 100MG TABLET PO SCH ×3 (09:04→21:18)
[2019-03-28] MEDS: OXcarbazepine 300 MG TAB PO SCH ×2 (09:04→21:19)
[2019-03-28 16:07] VITALS: BP 100/58
[2019-03-28 21:19] VITALS: BP 137/86
[2019-03-28] MEDS: PROPRANOLOL 60 MG LA CAP PO SCH (21:19)
[2019-03-29 06:33] VITALS: BP 117/67
[2019-03-29] MEDS: NYSTATIN 100,000 UNITS/GM TOPICAL PWD 15 GM TOP SCH (09:00)
[2019-03-29] MEDS ORDERED: REXU1TAB4 PO (09:04)
[2019-03-29] MEDS ORDERED: TRIL1TAB PO (09:04)
[2019-03-29] MEDS ORDERED: TRIL600T PO (09:04)
[2019-03-29] MEDS ORDERED: AMAN100T PO (09:04)
[2019-03-29] MEDS ORDERED: CITA20TA6 PO (09:04)
[2019-03-29] MEDS ORDERED: BENZ0.5T23 PO ×2 (09:04)
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
[2019-03-29] MEDS: CitaloPRAM (CeleXA) 20 MG TAB PO SCH (09:23)
[2019-03-29] MEDS: CALCIUM/VITAMIN D 500 MG TAB PO SCH (09:23)
[2019-03-29] MEDS: hydrOXYzine 25 MG TAB PO SCH (09:23)
[2019-03-29] MEDS: VITAMIN E 400 INTERNATIONAL UNITS CAP PO SCH (09:23)
[2019-03-29] MEDS: OXcarbazepine 300 MG TAB PO SCH (09:23)
[2019-03-29] MEDS: AMANTADINE 100MG TABLET PO SCH (09:23)
[2019-03-29] MEDS: BREXPIPRAZOLE 2MG TABLET (REXULTI) PO SCH (09:23)
== END 2019-03-29 11:30 | disposition home or self-care (01) | DRG 754 ==
LOC: M ED 17:47 → M ED INP 03-22 12:44 → M PSY 03-22 13:35 → UNDODISIN 03-23 12:15
PROVIDERS: ADMIT Psychiatry & Neurology Addiction Medicine; ATTEND Psychiatry & Neurology Psychiatry
DX: F32.9 Major depressive disorder, single episode, unspecified (principal); F25.1 Schizoaffective disorder, depressive type; F84.5 Asperger's syndrome; R45.851 Suicidal ideations; F22 Delusional disorders; F60.3 Borderline personality disorder; Z79.899 Other long term (current) drug therapy; Z88.0 Allergy status to penicillin; Z88.8 Allergy status to other drugs, medicaments and biological substances; F42.9 Obsessive-compulsive disorder, unspecified; F90.9 Attention-deficit hyperactivity disorder, unspecified type; R73.03 Prediabetes; F41.8 Other specified anxiety disorders; F10.20 Alcohol dependence, uncomplicated; R21 Rash and other nonspecific skin eruption

== ENCOUNTER 2019-04-21 16:18 | Inpatient (IN) | payer MEDICAID ==
[~2019-04-21] VITALS: Ht 157.5 cm; Wt 93.0 kg
[~2019-04-21 16:18] MED LIST changes: +CITA20TA6 PO; +REXU1TAB4 PO; +VITA-157 PO; +VRAY1.5C PO
[2019-04-21 18:00] LABS: AMPHETAMINES LEVEL URINE NEGATIVE (NEGATIVE); BARBITURATES URINE NEGATIVE (NEGATIVE); BENZODIAZEPINES URINE NEGATIVE (NEGATIVE); CANNABINOIDS URINE NEGATIVE (NEGATIVE); COCAINE METABOLITE URINE NEGATIVE (NEGATIVE); METHADONE URINE NEGATIVE (NEGATIVE); OPIATES URINE NEGATIVE (NEGATIVE); PHENCYCLIDINE URINE NEGATIVE (NEGATIVE)
[2019-04-21] MEDS ORDERED: NYSTATIN CREAM 15 GM TOP ONE (18:00)
[2019-04-21 18:22] LABS: HEMATOCRIT 39.1 % (36.0-47.0); HEMOGLOBIN 12.3 g/dl (12.0-15.5); MEAN CORPUSCULAR HEMOGLOBIN 27.8 pg (27.0-33.0); MEAN CORPUSCULAR HGB CONC 31.5 g/dl (32.0-36.5); MEAN CORPUSCULAR VOLUME 88.5 fl (80.0-96.0); PLATELET COUNT, AUTOMATED 236 10^3/uL (150-450); RED BLOOD COUNT 4.42 10^6/uL (4.00-5.40); WHITE BLOOD COUNT 8.2 10^3/uL (4.0-10.0)
[2019-04-21 18:45] LABS: HCG, SERUM QUALITATIVE NEGATIVE (NEGATIVE)
[2019-04-21 19:13] LABS: ACETAMINOPHEN LEVEL < 2.0 UG/ML (10.0-30.0); ALBUMIN 3.5 GM/DL (3.2-5.2); ALT/SGPT 23 U/L (12-78); BILIRUBIN,DIRECT < 0.1 MG/DL (0.0-0.2); BILIRUBIN,TOTAL 0.1 MG/DL (0.2-1.0); BLOOD UREA NITROGEN 13 MG/DL (7-18); CALCIUM LEVEL 8.7 MG/DL (8.5-10.1); CARBON DIOXIDE LEVEL 28 MEQ/L (21-32); CHLORIDE LEVEL 104 MEQ/L (98-107); CREATININE FOR GFR 0.78 MG/DL (0.55-1.30); ETHYL ALCOHOL (ETHANOL) < 0.003 % (0.000-0.010); GLOMERULAR FILTRATION RATE > 60.0 (>60); GLUCOSE, FASTING 112 MG/DL (70-100); POTASSIUM SERUM 4.1 MEQ/L (3.5-5.1); SALICYLATE LEVEL < 1.7 MG/DL (5.0-30.0); SODIUM LEVEL 137 MEQ/L (136-145); TOTAL PROTEIN 7.1 GM/DL (6.4-8.2)
[2019-04-21] MEDS ORDERED: PROPRANOLOL 60 MG LA CAP PO ONE (22:30)
[2019-04-21] MEDS ORDERED: BENZTROPINE 0.5 MG TAB PO ONE (22:30)
[2019-04-21] MEDS ORDERED: PROPRANOLOL 20 MG TAB PO ONE (22:30)
[2019-04-21] MEDS ORDERED: AMANTADINE 100MG TABLET PO ONE (22:30)
[2019-04-21] MEDS ORDERED: OXcarbazepine 300 MG TAB PO ONE (22:30)
[2019-04-22] MEDS ORDERED: REXU1TAB4 PO (00:15)
[2019-04-22] MEDS ORDERED: AMAN100T PO (00:15)
[2019-04-22] MEDS ORDERED: OXCA600T8 PO (00:15)
[2019-04-22] MEDS ORDERED: MELA3TAB59 PO (00:15)
[2019-04-22] MEDS ORDERED: OXCA300T14 PO (00:15)
[2019-04-22] MEDS ORDERED: CELE20TA PO (00:15)
[2019-04-22] MEDS ORDERED: BENZ0.5T23 PO (00:15)
[2019-04-22] MEDS ORDERED: METAL LOCK LOOP XX ONE (02:48)
--- NOTE | 2019-04-22 07:00 | ECGEPIP ---
[facility] - ED Test Date: 2019-04-21 Pat Name: LISA HUGO Department: Room: - Gender: Female Traffic Inspector: LOUISA : 1985 Requested By: SURJIT VIERA Order Number: [id number] Reading MD: Dionne Kumar Measurements Intervals [place] Rate: 70 P: 53 VT: 149 QRS: 42 QRSD: 78 T: 42 QT: 379 QTc: 409 Interpretive Statements SINUS RHYTHM DELAYED R PROGRESSION INCREASED RATE 03/21/19 Electronically Signed on 04-22-2019 6:59:46 EDT by Dionne Kumar
[2019-04-22] MEDS ORDERED: MOM 30ML SUSPENSION UDC PO PRN (14:00)
[2019-04-22] MEDS ORDERED: MAALOX 30 ML SUSP *UDC PO PRN (14:00)
[2019-04-22 14:59] VITALS: BP 124/82
[2019-04-22] MEDS: ACETAMINOPHEN TAB 650MG DOSE (2X325MG) PO PRN (19:27)
[2019-04-22] MEDS: OXcarbazepine 300 MG TAB PO SCH (19:57)
[2019-04-22] MEDS: VITAMIN E 400 INTERNATIONAL UNITS CAP PO SCH (19:57)
[2019-04-22] MEDS: CALCIUM/VITAMIN D 500 MG TAB PO SCH (19:57)
[2019-04-22] MEDS: AMANTADINE 100MG TABLET PO SCH (19:57)
[2019-04-22] MEDS: BENZTROPINE 0.5 MG TAB PO SCH (19:57)
[2019-04-22] MEDS: CitaloPRAM (CeleXA) 20 MG TAB PO SCH (19:57)
[2019-04-22] MEDS: traZODone 50 MG TAB PO PRN (19:59)
[2019-04-22] MEDS: BREXPIPRAZOLE 2MG TABLET (REXULTI) PO SCH (19:59)
[2019-04-22] MEDS: PROPRANOLOL 60 MG LA CAP PO SCH (20:00)
[2019-04-22] MEDS: hydrOXYzine 25 MG TAB PO SCH (21:25)
[2019-04-23 07:02] VITALS: BP 123/58
[2019-04-23] MEDS: hydrOXYzine 25 MG TAB PO SCH ×2 (08:43→12:01)
[2019-04-23] MEDS: AMANTADINE 100MG TABLET PO SCH (08:44)
[2019-04-23] MEDS: CitaloPRAM (CeleXA) 20 MG TAB PO SCH (08:47)
[2019-04-23] MEDS: BREXPIPRAZOLE 2MG TABLET (REXULTI) PO SCH (08:47)
[2019-04-23] MEDS: BENZTROPINE 0.5 MG TAB PO SCH (08:47)
[2019-04-23] MEDS: OXcarbazepine 300 MG TAB PO SCH ×2 (08:47→20:25)
[2019-04-23] MEDS: VITAMIN E 400 INTERNATIONAL UNITS CAP PO SCH ×2 (08:47→20:25)
[2019-04-23] MEDS: CALCIUM/VITAMIN D 500 MG TAB PO SCH (08:47)
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
--- NOTE | 2019-04-23 11:34 | HPEPDOC ---
General Date of Admission Apr 22, 2019 at 13:46 Date of Service: Apr 23, 2019 Attending Physician: ANGELA WILLAMS MD Chief Complaint The patient is a 34-year-old female admitted with a reason for visit of Unspecified Depressive Disorder. Source: Patient Exam Limitations: No limitations Timing/Duration: Day(s) Severity: Severe Associated Symptoms: Other (depression with suicidal thoughts with a very specific plan) History of Present Illness 34 year old woman with a history of prediabetes, anxiety, depression, schizoaff ective disorder, who was admitted to the hospital after parents noted worsening depressive symptoms and she admitted a very specific suicide plan for hallow night to jump off the [address] bridge at 3AM after consuming alcohol and her medications. She reports prior attempts, and feeling like she has hurt so many people that she deserves to and is adamant that she would never hurt anyone else except herself. She spent much of the evaluation explaining the suicide plan to great details and went over all her other prior attempts and why she had chosen jumping off the bridge this time. She otherwise tells this story in an almost cheerful manner but she then reports she suspects that her medication brought this on and is hopeful that medication adjustments will yield a positive outcome. At this time, she denies any recent illness, fever, chills, dysuria, hematuria, chest pain, diarrhea and reports no BM in 2 days because she does not want to make her roommate uncomfortable since they share a bathroom. Home Medications Scheduled Amantadine HCl (Amantadine) 100 Mg Tablet, 100 MG PO TID, (Reported) Benztropine Mesylate (Benztropine Mesylate) 0.5 Mg Tablet, 0.5 MG PO BID, (Repo rted) Brexpiprazole (Rexulti) 2 Mg Tablet, 2 MG PO DAILY, (Reported) Calcium Carbonate/Vitamin D3 (Calcium 600-Vit D3 800 Tablet) 1 Each Tablet, 1 TAB PO DAILY, (Reported) Citalopram Hydrobromide (Celexa) 20 Mg Tablet, 20 MG PO DAILY, (Reported) Hydroxyzine Pamoate (Hydroxyzine Pamoate) 25 Mg Capsule, 25 MG PO BID, (Reported) TAKES AT 0800 AND 1200 Oxcarbazepine (Oxcarbazepine) 300 Mg Tablet, 300 MG PO DAILY, (Reported) Oxcarbazepine (Oxcarbazepine) 600 Mg Tablet, 600 MG PO QHS, (Reported) Propranolol HCl (Propranolol HCl ER) 60 Mg Cap.sa.24h, 60 MG PO QHS, (Reported) Vitamin E (Dl,Tocopheryl Acet) (Vitamin E) 400 Unit Capsule, 400 UNIT PO BID, (Reported) Scheduled PRN Melatonin (Melatonin) 3 Mg Tablet, 3 MG PO QHS PRN for SLEEP, (Reported) Allergies Coded Allergies: Penicillins (Verified Allergy, Intermediate, rash, 01/28/19) quetiapine (Verified Allergy, Unknown, 01/28/19) risperidone (Verified Allergy, Unknown, 01/28/19) prednisone (Verified Adverse Reaction, Intermediate, anxiety, aggitation, 01/28/19) Past Medical History Medical History Schizoaffective disorder major depression prediabetes Family History Father: Hyperlipidemia, diabetes Mother: Hyperlipidemia Social History * Smoker: Denies Alcohol: occationally (however was planning excessive use right before planned suicide attempt) Drugs: denies Recent Travel/Sick Contacts: Denies: Recent travel, Recent sick contacts Psychosocial History: Anxiety, Decreased mood, Depression, Prior suicide attempt, Suicidal thoughts A-FIB/CHADSVASC A-FIB History Current/History of A-Fib/PAF?: No Current PO Anticoag Therapy: No Age/Risk Factor Scoring CHADSVASC: CHADSVASC Response (Comments) Value Age Risk Factor Age < 65 years old 0 Gender Risk Factor Female 1 Hx of CHF No 0 Hx of HTN No 0 Hx of Stroke/TIA/or VTE No 0 Hx of Diabetes No 0 Hx of Vascular Disease No 0 Total 1 Treatment Treatment ordered: NONE Reason Anticoagulant not given: Not indicated/[id number] Review of Systems Constitutional: Denies: Chills, Fever, Night Sweats Eyes: Denies: Pain, Vision change ENT: Denies: Head Aches, Ear Pain, Dysphagia Skin: Reports: Nail Changes (has chronic hyperkeratosis in bilateral feet since high school); Denies: Rash, Lesions, Breakdown Pulmonary: Denies: Dyspnea, Cough, Pleuritic Chest Pain Cardiovascular: Denies: Chest Pain, Palpitations, Orthopnea, Paroxysmal Noc. Dyspnea, Lt Headedness Gastrointestinal: Denies: Nausea, Vomiting, Abdominal Pain, Diarrhea, Constipation Genitourinary: Denies: Dysuria, Frequency, Incontinence, Retention Hematologic: Denies: Bruising, Bleeding Excessively Endocrine: Denies: Polydipsia, Polyphagia, Polyuria, Heat Intolerance, Cold Intolerance, Other Endocrine Sx Musculoskeletal: Denies: Neck Pain, Back Pain, Shoulder Pain, Arm Pain, Hand Pain, Leg Pain, Foot Pain, Joint Pain, Muscle Pain, Spasms, Other Symptoms Neurological: Denies: Weakness, Numbness, Incoordination, Change in speech, Confusion, Seizures, Other Symptoms Psych: Reports: Depression, Thoughts of Self Harm Physical Examination General Exam: Positive: Alert, Cooperative, No Acute Distress Eye Exam: Positive: PERRLA, Conjunctiva & lids normal, EOMI; Negative: Sclera icteric ENT Exam: Positive: Atraumatic, Mucous membr. moist/pink, Pharynx Normal Neck Exam: Positive: Supple; Negative: JVD, thyromegaly Chest Exam: Positive: Clear to auscultation, Normal air movement Heart Exam: Positive: Rate Normal, Regular Rhythm, Normal S1, Normal S2; Negative: Murmurs, Rubs Abdomen Exam: Positive: Normal bowel sounds, Soft; Negative: Tenderness, Hepatospenomegaly Extremity Exam: Positive: Normal pulses; Negative: Clubbing, Cyanosis, Edema Skin Exam: Positive: Nl turgor and temperature, Other skin issue (has hyperkeratosis on bilateral feet ); Negative: Breakdown, Lesion Neuro Exam: Positive: Normal Gait, Normal Speech, Cranial Nerves 3-12 NL, Reflexes 2+ Psych Exam: Positive: Memory Intact, Oriented x 3, Other (verbose, tangential, normal affect, speaks decidedly about suicide plan) Vital Signs Vital Signs Date Time Temp Pulse Resp B/P (MAP) Pulse Ox O2 Delivery O2 Flow Rate FiO2 04/23/19 07:02 98.1 84 16 123/58 (79) 04/22/19 14:59 99 Room Air Assessment/Plan 34 yo woman with significant psychiatric history including depression with prior suicide attempts, who was brought into the hospital by her parents after being noted to be increasingly while endorsing a very specific suicide plan planned for halloween night. At this time she has no acute medical needs and will defer psychiatric evaluation and treatment to psychiatry. Will sign off at this time. Plan / VTE VTE Prophylaxis Ordered?: No VTE Exclusion Mechanical Proph: Low Risk for VTE VTE Exclusion Pharmacological: At Low Risk for VTE ANGELA WILLAMS MD Apr 23, 2019 11:34
[2019-04-23 16:08] VITALS: BP 126/78
[2019-04-23] MEDS: PROPRANOLOL 60 MG LA CAP PO SCH (20:25)
[2019-04-23] MEDS: traZODone 50 MG TAB PO PRN (21:35)
[2019-04-24 07:03] VITALS: BP 122/68
[2019-04-24] MEDS: CitaloPRAM (CeleXA) 20 MG TAB PO SCH (08:30)
[2019-04-24] MEDS: OXcarbazepine 300 MG TAB PO SCH ×2 (08:31→20:37)
[2019-04-24] MEDS: CALCIUM/VITAMIN D 500 MG TAB PO SCH (08:31)
[2019-04-24] MEDS: hydrOXYzine 25 MG TAB PO SCH ×2 (08:32→12:19)
[2019-04-24] MEDS: VITAMIN E 400 INTERNATIONAL UNITS CAP PO SCH ×2 (08:32→20:37)
[2019-04-24] MEDS: ACETAMINOPHEN TAB 650MG DOSE (2X325MG) PO PRN (12:20)
[2019-04-24 16:13] VITALS: BP 119/69
[2019-04-24] MEDS: PROPRANOLOL 60 MG LA CAP PO SCH (20:37)
[2019-04-24] MEDS: traZODone 50 MG TAB PO PRN (21:18)
[2019-04-25 06:46] VITALS: BP 116/53
[2019-04-25] MEDS: CitaloPRAM (CeleXA) 20 MG TAB PO SCH (08:28)
[2019-04-25] MEDS: OXcarbazepine 300 MG TAB PO SCH ×2 (08:29→20:08)
[2019-04-25] MEDS: CALCIUM/VITAMIN D 500 MG TAB PO SCH (08:29)
[2019-04-25] MEDS: VITAMIN E 400 INTERNATIONAL UNITS CAP PO SCH ×2 (08:29→20:33)
[2019-04-25] MEDS: hydrOXYzine 25 MG TAB PO SCH ×2 (08:29→12:19)
[2019-04-25 16:26] VITALS: BP 124/67
--- NOTE | 2019-04-25 16:39 | MHIPNPDOC ---
[facility] Progress Note Progress Note DATE OF SERVICE: 04/24/19----- late entry HISTORY: As per Dr. Abernathy: "HISTORY OF THE PRESENT ILLNESS: Patient is a 34 -year-old , female, with a history of autistic spectrum disorder (high functioning) and depression with multiple admission [facility] for SI with last d/c 03/28/19 who was brought to ED by parents due to endorsing depression and thoughts of suicide, AH telling her to commit suicide that are inside her head (per pt) feeling her meds needed to be changed as she though arnoldoulti was making her feel worse and more depressed after pt called crisis line endorsing SI. Mother spoke with ED staff and stated pt was had worsening depression, obsession with SI and plans for suicide, AH inside her head (most likely her conscious speaking to her with intrusive thoughts of SI due to depressed mood), and anger. Pt endorsed nonspecific plans for suicide in ED such as OD on melatonin and to get drunk and jump [place] [address]." VITAL SIGNS: See below. NEW TEST RESULTS: See below CURRENT MEDICATIONS: See below. MENTAL STATUS EXAMINATION: General Appearance: well groomed, appears stated age, hospital scubs/clothing Build: overweight Demeanor: very figety Eye Contact: intense Activity: anxious Behavior: cooperative, restless Speech: clear, spontaneous, reg/rate,rhythm,volume Mood: depressed, anxious Mood "I'm depressed and have thoughts of SI." Affect: full, anxious Thought Process: logical/linear, concrete, depressed Thought Content (Delusions): none reported, other (endorses intrusive thoughts of suicide with no plan and feels safe her. Denies HI and VH. Endorses AH inside her head that is most likely her own conscience and are more intrusive thoughts of sucide secondary depressed mood) Thought Content (Other): none reported, appropriate Thought Content (Aggressive): none reported Perception (Hallucinations): none reported, auditory (Endorses AH inside her head that is most likely her own conscience and are more intrusive thoughts of sucide secondary depressed mood. Doesn't appear to be responding to any internal stimuli) Perception (Other): none reported Cognition (Impairment of): none reported Cognition(Intelligence Est.): average Oriented: Awake, Alert, Oriented times three Insight: poor Judgment: Fair Psychosis: Denies Diagnoses Major depressive disorder Borderline Personality d/o Autistic Spectrum D/O - high function (Asperger's) ASSESSMENT: patient has been interacting well with other patients and staff, she has not been aggressive/violent, she is not very depressed, very anxious at this time. She denies SI at this time MANAGEMENT PLAN: As per Dr. Abernathy TIME SPENT: 15 minutes. Vital Signs Vital Signs Date Time Temp Pulse Resp B/P (MAP) Pulse Ox O2 Delivery O2 Flow Rate FiO2 04/25/19 06:46 98.0 78 12 116/53 (74) Room Air 04/22/19 14:59 99 Current Medications Current Medications Medications (Trade) Dose Ordered Sig/Cory Route PRN Reason Start Time Stop Time Status Last Admin Dose Admin Acetaminophen (Tylenol Tab) 650 mg Q6HP PRN PO HEADACHE or DISCOMFORT 04/22/19 14:00 04/24/19 12:20 Al Hydrox/Mg Hydrox/Simethicone (Mylanta) 30 ml Q4HP PRN PO HEARTBURN/INDIGESTION 04/22/19 14:00 Amantadine HCl (Symmetrel) 100 mg TID PO 04/22/19 16:00 04/23/19 09:21 DC 04/23/19 08:44 Benztropine Mesylate (Cogentin) 0.5 mg BID PO 04/22/19 21:00 04/23/19 09:21 DC 04/23/19 08:47 Brexpiprazole (Rexulti) 2 mg DAILY PO 04/22/19 09:00 04/23/19 09:21 DC 04/23/19 08:47 Calcium/Vitamin D (Oscal D) 1,000 mg DAILY PO 04/22/19 09:00 04/25/19 08:29 Citalopram Hydrobromide (CeleXA) 20 mg DAILY PO 04/22/19 09:00 04/25/19 08:28 Home Med (Med Rec Complete!) ASDIRECTED XX 04/22/19 00:30 04/22/19 00:43 DC Hydroxyzine HCl (Atarax) 25 mg BID@0800,1200 PO 04/23/19 08:00 04/25/19 12:19 Magnesium Hydroxide (Milk Of Magnesia) 30 ml DAILYPRN PRN PO CONSTIPATION 04/22/19 14:00 Oxcarbazepine (Trileptal) 300 mg DAILY PO 04/23/19 09:00 04/25/19 08:29 Oxcarbazepine (Trileptal) 600 mg QHS PO 04/22/19 21:00 04/24/19 20:37 Propranolol HCl (Inderal La) 60 mg QHS PO 04/22/19 21:00 04/24/19 20:37 Trazodone HCl (Desyrel) 50 mg QHSP PRN PO INSOMNIA 04/22/19 14:00 04/24/19 21:18 Vitamin E (Vitamin E) 400 units BID PO 04/22/19 21:00 04/25/19 08:29 Allergies Coded Allergies: Penicillins (Verified Allergy, Intermediate, rash, 01/28/19) quetiapine (Verified Allergy, Unknown, 01/28/19) risperidone (Verified Allergy, Unknown, 01/28/19) prednisone (Verified Adverse Reaction, Intermediate, anxiety, aggitation, 01/28/19) PRIMO GOLDSTEIN MD Apr 25, 2019 12:25
--- NOTE | 2019-04-25 16:53 | MHIPNPDOC ---
[facility] Progress Note Progress Note DATE OF SERVICE: 04/25/19 HISTORY: As per Dr. Abernathy: "HISTORY OF THE PRESENT ILLNESS: Patient is a 34 -year-old , female, with a history of autistic spectrum disorder (high functioning) and depression with multiple admission [facility] for SI with last d/c 03/28/19 who was brought to ED by parents due to endorsing depression and thoughts of suicide, AH telling her to commit suicide that are inside her head (per pt) feeling her meds needed to be changed as she though arnoldoulti was making her feel worse and more depressed after pt called crisis line endorsing SI. Mother spoke with ED staff and stated pt was had worsening depression, obsession with SI and plans for suicide, AH inside her head (most likely her conscious speaking to her with intrusive thoughts of SI due to depressed mood), and anger. Pt endorsed nonspecific plans for suicide in ED such as OD on melatonin and to get drunk and jump [place] [address] [place]." VITAL SIGNS: See below. NEW TEST RESULTS: See below CURRENT MEDICATIONS: See below. MENTAL STATUS EXAMINATION: General Appearance: well groomed, appears stated age, personal clothes Build: overweight Demeanor: a little bit calm, but fidgety most of the time Eye Contact: intense Activity: anxious Behavior: cooperative Speech: clear, spontaneous, reg/rate,rhythm,volume Mood: anxious Mood "I don't have SI today." Affect: full, anxious Thought Process: logical/linear, concrete, depressed Thought Content (Delusions): She says she hasn't had thoughts about killing herself, she doesn't feel paranoid but she has angry thoughts against her parents. Thought Content (Other): none reported, appropriate Thought Content (Aggressive): none reported Perception (Hallucinations): Denies. She says is hard to identify if she has intrusive thoughts or if those are AH. She says the last time she had intrusive thoughts that tole her to kill herself was last night after her parents left at night. she doesn't seem to be responding to internal stimuli. Perception (Other): none reported Cognition (Impairment of): none reported Cognition(Intelligence Est.): average Oriented: Awake, Alert, Oriented times three Insight: poor Judgment: Fair Psychosis: Denies Diagnoses Major depressive disorder Borderline Personality d/o Autistic Spectrum D/O - high function (Asperger's) ASSESSMENT: Patient has been attending groups, she presented to the office with the paper sheet she has from work, where she has written about how resentful she feels against her parents and how that resentfulness lead her to feel suicidal. She says she's not suicidal at this time, she feels the medication change has been good, she really thinks Rexulti was making her feel suicidal. She feels her mood and affect have improved. She's not suicidal at this time, she's not homicidal and she doesn't seem to be responding to internal stimuli. MANAGEMENT PLAN: As per Dr. Abernathy. TIME SPENT: 15 minutes. Vital Signs Vital Signs Date Time Temp Pulse Resp B/P (MAP) Pulse Ox O2 Delivery O2 Flow Rate FiO2 04/25/19 06:46 98.0 78 12 116/53 (74) Room Air 04/22/19 14:59 99 Current Medications Current Medications Medications (Trade) Dose Ordered Sig/Cory Route PRN Reason Start Time Stop Time Status Last Admin Dose Admin Acetaminophen (Tylenol Tab) 650 mg Q6HP PRN PO HEADACHE or DISCOMFORT 04/22/19 14:00 04/24/19 12:20 Al Hydrox/Mg Hydrox/Simethicone (Mylanta) 30 ml Q4HP PRN PO HEARTBURN/INDIGESTION 04/22/19 14:00 Amantadine HCl (Symmetrel) 100 mg TID PO 04/22/19 16:00 04/23/19 09:21 DC 04/23/19 08:44 Benztropine Mesylate (Cogentin) 0.5 mg BID PO 04/22/19 21:00 04/23/19 09:21 DC 04/23/19 08:47 Brexpiprazole (Rexulti) 2 mg DAILY PO 04/22/19 09:00 04/23/19 09:21 DC 04/23/19 08:47 Calcium/Vitamin D (Oscal D) 1,000 mg DAILY PO 04/22/19 09:00 04/25/19 08:29 Citalopram Hydrobromide (CeleXA) 20 mg DAILY PO 04/22/19 09:00 04/25/19 08:28 Home Med (Med Rec Complete!) ASDIRECTED XX 04/22/19 00:30 04/22/19 00:43 DC Hydroxyzine HCl (Atarax) 25 mg BID@0800,1200 PO 04/23/19 08:00 04/25/19 12:19 Magnesium Hydroxide (Milk Of Magnesia) 30 ml DAILYPRN PRN PO CONSTIPATION 04/22/19 14:00 Oxcarbazepine (Trileptal) 300 mg DAILY PO 04/23/19 09:00 04/25/19 08:29 Oxcarbazepine (Trileptal) 600 mg QHS PO 04/22/19 21:00 04/24/19 20:37 Propranolol HCl (Inderal La) 60 mg QHS PO 04/22/19 21:00 04/24/19 20:37 Trazodone HCl (Desyrel) 50 mg QHSP PRN PO INSOMNIA 04/22/19 14:00 04/24/19 21:18 Vitamin E (Vitamin E) 400 units BID PO 04/22/19 21:00 04/25/19 08:29 Allergies Coded Allergies: Penicillins (Verified Allergy, Intermediate, rash, 01/28/19) quetiapine (Verified Allergy, Unknown, 01/28/19) risperidone (Verified Allergy, Unknown, 01/28/19) prednisone (Verified Adverse Reaction, Intermediate, anxiety, aggitation, 01/28/19) PRIMO GOLDSTEIN MD Apr 25, 2019 12:30
[2019-04-25] MEDS: PROPRANOLOL 60 MG LA CAP PO SCH (20:08)
[2019-04-25] MEDS: traZODone 50 MG TAB PO PRN (21:29)
[2019-04-26 06:34] VITALS: BP 111/67
[2019-04-26] MEDS: CALCIUM/VITAMIN D 500 MG TAB PO SCH (08:57)
[2019-04-26] MEDS: VITAMIN E 400 INTERNATIONAL UNITS CAP PO SCH ×2 (08:57→20:07)
[2019-04-26] MEDS: hydrOXYzine 25 MG TAB PO SCH ×2 (08:57→11:24)
[2019-04-26] MEDS: OXcarbazepine 300 MG TAB PO SCH ×2 (08:57→20:08)
[2019-04-26] MEDS: CitaloPRAM (CeleXA) 20 MG TAB PO SCH (08:57)
--- NOTE | 2019-04-26 10:40 | MHIPNPDOC ---
[facility] Progress Note Progress Note DATE OF SERVICE: 04/26/19 HISTORY: Patient is a 34 -year-old , female, with a history of autistic spectrum disorder (high functioning) and depression with multiple admission [facility] for SI with last d/c 03/28/19 who was brought to ED by parents due to endorsing depression and thoughts of suicide, AH telling her to commit suicide that are inside her head (per pt) feeling her meds needed to be changed as she though arnolodulti was making her feel worse and more depressed after pt called crisis line endorsing SI. Mother spoke with ED staff and stated pt was had worsening depression, obsession with SI and plans for suicide, AH inside her head (most likely her conscious speaking to her with intrusive thoughts of SI due to depressed mood), and anger. Pt endorsed nonspecific plans for suicide in ED such as OD on melatonin and to get drunk and jump [place] [address]." VITAL SIGNS: See below. NEW TEST RESULTS: See below CURRENT MEDICATIONS: See below. MENTAL STATUS EXAMINATION: General Appearance: well groomed, appears stated age, personal clothes Build: overweight Demeanor: cooperative Eye Contact: intense Activity: less anxious Behavior: cooperative Speech: clear, spontaneous, reg/rate,rhythm,volume Mood: euthymic, reactive anger outburst (situational) occasionally, lessanxious Mood "alright." Affect: full, euthymic, less anxious Thought Process: logical/linear, concrete, less depressed, intrusive thoughts improved to very mild Thought Content (Delusions): denies SI/HI, AVH, paranoia Thought Content (Aggressive): none reported Perception (Hallucinations): Denies. Perception (Other): none reported Cognition (Impairment of): none reported Cognition(Intelligence Est.): average Oriented: Awake, Alert, Oriented times three Insight: fair Judgment: Fair Psychosis: Denies Diagnoses Major depressive disorder Borderline Personality d/o Autistic Spectrum D/O - high function (Asperger's) ASSESSMENT: Patient states she feels "alright" today although did have an angry outburst this am slamming her room door extremely loud and per treatment team was verbally mean toward a peer pt on the unit over the weekend. Talked to pt about her having the ability to act like a mature adult and now react in anger aggressively and treat others with respect. States she knows she can do it and will work hard on it. States she feels overall better since discontinuing her rexulti, less "jittery" and things she is functioning better without it. She is attending groups today and finding them helpful. She feels her mood and affect have improved. She's not suicidal at this time, she's not homicidal and she doesn't seem to be responding to internal stimuli. She feels safe here. MANAGEMENT PLAN: As per Dr. Abernathy. Medications: Citalopram 20 MG PO DAILY Hydroxyzine 25 MG PO BID Trileptal 300 MG PO QAM and 600 MG PO QHS Propranolol HCl ER 60 MG PO QHS Vistaril 25mg q6hr prn anxiety TIME SPENT: 30 minutes. Vital Signs Vital Signs Date Time Temp Pulse Resp B/P (MAP) Pulse Ox O2 Delivery O2 Flow Rate FiO2 04/26/19 06:34 99.2 86 16 111/67 (82) 04/25/19 06:46 Room Air 04/22/19 14:59 99 Current Medications Current Medications Medications (Trade) Dose Ordered Sig/Cory Route PRN Reason Start Time Stop Time Status Last Admin Dose Admin Acetaminophen (Tylenol Tab) 650 mg Q6HP PRN PO HEADACHE or DISCOMFORT 04/22/19 14:00 04/24/19 12:20 Al Hydrox/Mg Hydrox/Simethicone (Mylanta) 30 ml Q4HP PRN PO HEARTBURN/INDIGESTION 04/22/19 14:00 Amantadine HCl (Symmetrel) 100 mg TID PO 04/22/19 16:00 04/23/19 09:21 DC 04/23/19 08:44 Benztropine Mesylate (Cogentin) 0.5 mg BID PO 04/22/19 21:00 04/23/19 09:21 DC 04/23/19 08:47 Brexpiprazole (Rexulti) 2 mg DAILY PO 04/22/19 09:00 04/23/19 09:21 DC 04/23/19 08:47 Calcium/Vitamin D (Oscal D) 1,000 mg DAILY PO 04/22/19 09:00 04/26/19 08:57 Citalopram Hydrobromide (CeleXA) 20 mg DAILY PO 04/22/19 09:00 04/26/19 08:57 Home Med (Med Rec Complete!) ASDIRECTED XX 04/22/19 00:30 04/22/19 00:43 DC Hydroxyzine HCl (Atarax) 25 mg BID@0800,1200 PO 04/23/19 08:00 04/26/19 08:57 Magnesium Hydroxide (Milk Of Magnesia) 30 ml DAILYPRN PRN PO CONSTIPATION 04/22/19 14:00 Oxcarbazepine (Trileptal) 300 mg DAILY PO 04/23/19 09:00 04/26/19 08:57 Oxcarbazepine (Trileptal) 600 mg QHS PO 04/22/19 21:00 04/25/19 20:08 Propranolol HCl (Inderal La) 60 mg QHS PO 04/22/19 21:00 04/25/19 20:08 Trazodone HCl (Desyrel) 50 mg QHSP PRN PO INSOMNIA 04/22/19 14:00 04/25/19 21:29 Vitamin E (Vitamin E) 400 units BID PO 04/22/19 21:00 04/26/19 08:57 Allergies Coded Allergies: Penicillins (Verified Allergy, Intermediate, rash, 01/28/19) quetiapine (Verified Allergy, Unknown, 01/28/19) risperidone (Verified Allergy, Unknown, 01/28/19) prednisone (Verified Adverse Reaction, Intermediate, anxiety, aggitation, 01/28/19) NESHA ABERNATHY DO Apr 26, 2019 10:40 am
[2019-04-26 16:26] VITALS: BP 125/74
[2019-04-26] MEDS: PROPRANOLOL 60 MG LA CAP PO SCH (20:07)
[2019-04-27 06:35] VITALS: BP 107/51
[2019-04-27] MEDS: CALCIUM/VITAMIN D 500 MG TAB PO SCH (08:25)
[2019-04-27] MEDS: hydrOXYzine 25 MG TAB PO SCH ×2 (08:25→12:27)
[2019-04-27] MEDS: CitaloPRAM (CeleXA) 20 MG TAB PO SCH (08:25)
[2019-04-27] MEDS: VITAMIN E 400 INTERNATIONAL UNITS CAP PO SCH ×2 (08:25→20:25)
[2019-04-27] MEDS: OXcarbazepine 300 MG TAB PO SCH ×2 (08:26→20:25)
--- NOTE | 2019-04-27 09:50 | MHIPNPDOC ---
[facility] Progress Note Progress Note DATE OF SERVICE: 04/27/19 HISTORY:Patient is a 34 -year-old , female, with a history of autistic spectrum disorder (high functioning) and depression with multiple admission [facility] for SI with last d/c 03/28/19 who was brought to ED by parents due to endorsing depression and thoughts of suicide, AH telling her to commit suicide that are inside her head (per pt) feeling her meds needed to be changed as she though rexulti was making her feel worse and more depressed after pt called crisis line endorsing SI. Mother spoke with ED staff and stated pt was had worsening depression, obsession with SI and plans for suicide, AH inside her head (most likely her conscious speaking to her with intrusive thoughts of SI due to depressed mood), and anger. Pt endorsed nonspecific plans for suicide in ED such as OD on melatonin and to get drunk and [place] [address]." VITAL SIGNS: See below. NEW TEST RESULTS: See below CURRENT MEDICATIONS: See below. MENTAL STATUS EXAMINATION: General Appearance: well groomed, appears stated age, personal clothes Build: overweight Demeanor: cooperative Eye Contact: intense Activity: less anxious Behavior: cooperative Speech: clear, spontaneous, reg/rate,rhythm,volume Mood: euthymic, no reactive anger outburst (situational), less anxious Mood "good." Affect: full, euthymic, less anxious Thought Process: logical/linear, concrete, intrusive thoughts improved to very mild Thought Content (Delusions): denies SI/HI, AVH, paranoia Thought Content (Aggressive): none reported Perception (Hallucinations): Denies. Perception (Other): none reported Cognition (Impairment of): none reported Cognition(Intelligence Est.): average Oriented: Awake, Alert, Oriented times three Insight: fair Judgment: Fair Psychosis: Denies Diagnoses Major depressive disorder Borderline Personality d/o Autistic Spectrum D/O - high function (Asperger's) ASSESSMENT: Patient seen and states she feels "good" today. States she doing well managing her occasional irritability or anger on the unit by either journalling or doing deep breathing in her room. States she feels angry at times due to her her weight (told appetite should decrease with d/c of rexulti and to eat health foods, exercise)parents as is very eager to gain more independence from them but feels she is frequently held back b/c her mother suffers from "empty nest syndrome". Advised that when she returns home she should continued to work on her anger management and show more ability in caring for herself such as cleaning up after herself, making her own meal, etc. Talked to pt about her having the ability to act like a mature adult again and not react in anger aggressively and treat others with respect. Stated she knows she can do it and will work hard on it yesterday. States she feels overall better since discontinuing her rexulti, less "jittery" and things she is functioning better without it. She is attending groups today and finding them helpful. She feels her mood and affect appears to have improved. She's not suicidal at this time, she's not homicidal and she doesn't seem to be responding to internal stimuli. She feels safe here. MANAGEMENT PLAN: As per Dr. Abernathy. Medications: Citalopram 20 MG PO DAILY Hydroxyzine 25 MG PO BID Trileptal 300 MG PO QAM and 600 MG PO QHS Propranolol HCl ER 60 MG PO QHS Vistaril 25mg q6hr prn anxiety TIME SPENT: 30 minutes. Vital Signs Vital Signs Date Time Temp Pulse Resp B/P (MAP) Pulse Ox O2 Delivery O2 Flow Rate FiO2 04/27/19 06:35 98.8 91 14 107/51 (69) 04/26/19 16:26 100 04/25/19 06:46 Room Air Current Medications Current Medications Medications (Trade) Dose Ordered Sig/Cory Route PRN Reason Start Time Stop Time Status Last Admin Dose Admin Acetaminophen (Tylenol Tab) 650 mg Q6HP PRN PO HEADACHE or DISCOMFORT 04/22/19 14:00 04/24/19 12:20 Al Hydrox/Mg Hydrox/Simethicone (Mylanta) 30 ml Q4HP PRN PO HEARTBURN/INDIGESTION 04/22/19 14:00 Amantadine HCl (Symmetrel) 100 mg TID PO 04/22/19 16:00 04/23/19 09:21 DC 04/23/19 08:44 Benztropine Mesylate (Cogentin) 0.5 mg BID PO 04/22/19 21:00 04/23/19 09:21 DC 04/23/19 08:47 Brexpiprazole (Rexulti) 2 mg DAILY PO 04/22/19 09:00 04/23/19 09:21 DC 04/23/19 08:47 Calcium/Vitamin D (Oscal D) 1,000 mg DAILY PO 04/22/19 09:00 04/27/19 08:25 Citalopram Hydrobromide (CeleXA) 20 mg DAILY PO 04/22/19 09:00 04/27/19 08:25 Home Med (Med Rec Complete!) ASDIRECTED XX 04/22/19 00:30 04/22/19 00:43 DC Hydroxyzine HCl (Atarax) 25 mg BID@0800,1200 PO 04/23/19 08:00 04/27/19 08:25 Magnesium Hydroxide (Milk Of Magnesia) 30 ml DAILYPRN PRN PO CONSTIPATION 04/22/19 14:00 Oxcarbazepine (Trileptal) 300 mg DAILY PO 04/23/19 09:00 04/27/19 08:26 Oxcarbazepine (Trileptal) 600 mg QHS PO 04/22/19 21:00 04/26/19 20:08 Propranolol HCl (Inderal La) 60 mg QHS PO 04/22/19 21:00 04/26/19 20:07 Trazodone HCl (Desyrel) 50 mg QHSP PRN PO INSOMNIA 04/22/19 14:00 04/25/19 21:29 Vitamin E (Vitamin E) 400 units BID PO 04/22/19 21:00 04/27/19 08:25 Allergies Coded Allergies: Penicillins (Verified Allergy, Intermediate, rash, 01/28/19) quetiapine (Verified Allergy, Unknown, 01/28/19) risperidone (Verified Allergy, Unknown, 01/28/19) prednisone (Verified Adverse Reaction, Intermediate, anxiety, aggitation, 01/28/19) NESHA ABERNATHY DO Apr 27, 2019 9:50 am
[2019-04-27 20:25] VITALS: BP 133/74
[2019-04-27] MEDS: PROPRANOLOL 60 MG LA CAP PO SCH (20:25)
[2019-04-27] MEDS: traZODone 50 MG TAB PO PRN (21:07)
[2019-04-28] MEDS: CitaloPRAM (CeleXA) 20 MG TAB PO SCH (08:14)
[2019-04-28] MEDS: VITAMIN E 400 INTERNATIONAL UNITS CAP PO SCH (08:14)
[2019-04-28] MEDS: OXcarbazepine 300 MG TAB PO SCH (08:14)
[2019-04-28] MEDS: hydrOXYzine 25 MG TAB PO SCH ×2 (08:14→12:37)
[2019-04-28] MEDS: CALCIUM/VITAMIN D 500 MG TAB PO SCH (08:14)
[2019-04-28] MEDS ORDERED: OXCA600T8 PO (08:50)
[2019-04-28] MEDS ORDERED: HYDR1CAP25 PO (08:50)
[2019-04-28] MEDS ORDERED: OXCA300T14 PO (08:50)
[2019-04-28] MEDS ORDERED: CELE20TA PO (08:50)
--- NOTE | 2019-04-28 08:50 | MHDSPDOC ---
[facility] Discharge Summary Discharge Summary DATE OF ADMISSION: Apr 22, 2019 at 1:46 pm DATE OF DISCHARGE: Apr 28, 2019 DISCHARGE DIAGNOSES: Major depressive disorder Borderline Personality d/o Autistic Spectrum D/O - high function (Asperger's) REASON FOR ADMISSION: Patient is a 34 -year-old , female, with a history of autistic spectrum disorder (high functioning) and depression with multiple admission [facility] for SI with last d/c 03/28/19 who was brought to ED by quang carpenter due to endorsing depression and thoughts of suicide, AH telling her to commit suicide that are inside her head (per pt) feeling her meds needed to be changed as she though rexulti was making her feel worse and more depressed after pt called crisis line endorsing SI. Mother spoke with ED staff and stated pt was had worsening depression, obsession with SI and plans for suicide, AH inside her head (most likely her conscious speaking to her with intrusive thoughts of SI due to depressed mood), and anger. Pt endorsed nonspecific plans for suicide in ED such as OD on melatonin and to get drunk and jump [place] [address]." CONSULTANTS INVOLVED: none TREATMENT AND PROGRESS ON THE UNIT : t was admitted to [facility], seen for psychiatric assessment and restarted on her outpatient psychiatric medications trileptal, celexa, and propranolol. She was discontinued off of rexulti as she felt it made her more depressed with SI, discontinued off atarax and clonidine b/c she was no longer on an antipsychotic requiring their use for eps prevention. She tolerated all her medication well and found them beneficial for her. She was provided vistaril 25mg q6hr prn anxiety and trazodone 50mg qhs prn insomnia. Pt found her medications beneficial and tolerated them well. She attended groups daily during her stay. Her symptoms improved with treatment. She stated she felt much better since stopping any antipsychotics. Worked with pt daily on working with her anger management and acting like a mature adult like she is. Pt found this helpful. On day of discharge she denied depression, anxiety, insomnia, SI/HI, hallucinations, delusions. She was discharged home after family meeting with her mother with follow-up at [facility] and [facility]. She felt safe for discharge. DISCHARGE ASSESSMENT: Patient seen and states she feels "good" today and is looking forward to going home with her mother today. States she's going to continue to work on her anger management at home and to work on taking care of herself more independently in the areas she's allowed to by her mother like making a meal for herself, keep her room maintained, managing her appt times, etc so her parents can trust her more and see that she is capable of living on her own. Talked to pt about her having the ability to act like a mature adult while here and not react in anger aggressively and treat others with respect. Stated she knows she can do it and will continue to work hard on it at home. States she feels overall better since discontinuing her rexulti, less "jittery" and things she is functioning better without it. She is attending groups today and finding them helpful. She feels her mood is "good" and affect appears to be euthymic with appropriate behavior on the unit. She denies depression, anxiety, insomnia, SI/HI, hallucinations, delusions. She feels safe to d/c home today with her mother. MENTAL STATUS EXAMINATION ON DISCHARGE: General Appearance: well groomed, appears stated age, personal clothes Build: overweight Demeanor: cooperative Eye Contact: intense Activity: average Behavior: cooperative Speech: clear, spontaneous, reg/rate,rhythm,volume Mood: euthymic, full range Mood "good." Affect: full, euthymic, congruent Thought Process: logical/linear, concrete Thought Content (Delusions): denies SI/HI, AVH, denies paranoia Thought Content (Aggressive): none reported Perception (Hallucinations): Denies. Perception (Other): none reported Cognition (Impairment of): none reported Cognition(Intelligence Est.): average Oriented: Awake, Alert, Oriented times three Insight: fair-good Judgment: Fair-good Psychosis: Denies MEDICATIONS ON DISCHARGE: Citalopram 20 MG PO DAILY Trileptal 300 MG PO QAM and 600 MG PO QHS Propranolol HCl ER 60 MG PO QHS Vistaril 25mg q6hr prn anxiety PLAN/FOLLOWUP ARRANGEMENTS: D/c home with mother with follow-up at [facility] and [facility] The amount of time spent in the coordination of care for this patient was approximately 30 minutes. Vital Signs/I&Os Vital Signs Date Time Temp Pulse Resp B/P (MAP) Pulse Ox O2 Delivery O2 Flow Rate FiO2 04/27/19 20:25 65 133/74 04/27/19 15:22 98.0 20 04/26/19 16:26 100 04/25/19 06:46 Room Air Medications Scheduled Amantadine HCl (Amantadine) 100 Mg Tablet, 100 MG PO TID, (Reported) Benztropine Mesylate (Benztropine Mesylate) 0.5 Mg Tablet, 0.5 MG PO BID, (Reported) Brexpiprazole (Rexulti) 2 Mg Tablet, 2 MG PO DAILY, (Reported) Calcium Carbonate/Vitamin D3 (Calcium 600-Vit D3 800 Tablet) 1 Each Tablet, 1 TAB PO DAILY, (Reported) Citalopram Hydrobromide (Celexa) 20 Mg Tablet, 20 MG PO DAILY, (Reported) Hydroxyzine Pamoate (Hydroxyzine Pamoate) 25 Mg Capsule, 25 MG PO BID, (Reported) TAKES AT 0800 AND 1200 Oxcarbazepine (Oxcarbazepine) 300 Mg Tablet, 300 MG PO DAILY, (Reported) Oxcarbazepine (Oxcarbazepine) 600 Mg Tablet, 600 MG PO QHS, (Reported) Propranolol HCl (Propranolol HCl ER) 60 Mg Cap.sa.24h, 60 MG PO QHS, (Reported) Vitamin E (Dl,Tocopheryl Acet) (Vitamin E) 400 Unit Capsule, 400 UNIT PO BID, (R eported) Scheduled PRN Melatonin (Melatonin) 3 Mg Tablet, 3 MG PO QHS PRN for SLEEP, (Reported) Allergies Coded Allergies: Penicillins (Verified Allergy, Intermediate, rash, 01/28/19) quetiapine (Verified Allergy, Unknown, 01/28/19) risperidone (Verified Allergy, Unknown, 01/28/19) prednisone (Verified Adverse Reaction, Intermediate, anxiety, aggitation, 01/28/19) NESHA SOSA DO Apr 28, 2019 8:50 am
== END 2019-04-28 12:57 | disposition home or self-care (01) | DRG 754 ==
LOC: M ED 16:18 → M ED INP 04-22 13:46 → M PSY 04-22 14:48 → M ED INP 04-23 04:46 → M PSY 04-23 04:47
PROVIDERS: ADMIT Psychiatry & Neurology Psychiatry; ATTEND Psychiatry & Neurology Psychiatry
DX: F32.9 Major depressive disorder, single episode, unspecified (principal); F84.5 Asperger's syndrome; F60.3 Borderline personality disorder; R73.03 Prediabetes; Z56.0 Unemployment, unspecified; Z79.899 Other long term (current) drug therapy; Z88.0 Allergy status to penicillin; Z88.8 Allergy status to other drugs, medicaments and biological substances; Z95.1 Presence of aortocoronary bypass graft

== ENCOUNTER 2019-05-02 18:50 | Inpatient (IN) | payer MEDICAID ==
[~2019-05-02] VITALS: Ht 157.5 cm; Wt 92.7 kg
[~2019-05-02 18:50] MED LIST changes: +MELA3TAB59 PO
[2019-05-02 19:27] LABS: HEMATOCRIT 39.3 % (36.0-47.0); HEMOGLOBIN 12.5 g/dl (12.0-15.5); MEAN CORPUSCULAR HEMOGLOBIN 27.9 pg (27.0-33.0); MEAN CORPUSCULAR HGB CONC 31.8 g/dl (32.0-36.5); MEAN CORPUSCULAR VOLUME 87.7 fl (80.0-96.0); PLATELET COUNT, AUTOMATED 220 10^3/uL (150-450); RED BLOOD COUNT 4.48 10^6/uL (4.00-5.40); WHITE BLOOD COUNT 8.2 10^3/uL (4.0-10.0)
[2019-05-02 19:50] LABS: HCG, SERUM QUALITATIVE NEGATIVE (NEGATIVE)
[2019-05-02 19:57] LABS: AMPHETAMINES LEVEL URINE NEGATIVE (NEGATIVE); BARBITURATES URINE NEGATIVE (NEGATIVE); BENZODIAZEPINES URINE NEGATIVE (NEGATIVE); CANNABINOIDS URINE NEGATIVE (NEGATIVE); COCAINE METABOLITE URINE NEGATIVE (NEGATIVE); METHADONE URINE NEGATIVE (NEGATIVE); OPIATES URINE NEGATIVE (NEGATIVE); PHENCYCLIDINE URINE NEGATIVE (NEGATIVE)
[2019-05-02 20:05] LABS: ACETAMINOPHEN LEVEL < 2.0 UG/ML (10.0-30.0); ALBUMIN 3.5 GM/DL (3.2-5.2); ALT/SGPT 28 U/L (12-78); BILIRUBIN,DIRECT < 0.1 MG/DL (0.0-0.2); BILIRUBIN,TOTAL 0.2 MG/DL (0.2-1.0); BLOOD UREA NITROGEN 16 MG/DL (7-18); CALCIUM LEVEL 8.5 MG/DL (8.5-10.1); CARBON DIOXIDE LEVEL 27 MEQ/L (21-32); CHLORIDE LEVEL 109 MEQ/L (98-107); CREATININE FOR GFR 0.79 MG/DL (0.55-1.30); ETHYL ALCOHOL (ETHANOL) < 0.003 % (0.000-0.010); GLOMERULAR FILTRATION RATE > 60.0 (>60); GLUCOSE, FASTING 112 MG/DL (70-100); POTASSIUM SERUM 3.8 MEQ/L (3.5-5.1); SALICYLATE LEVEL < 1.7 MG/DL (5.0-30.0); SODIUM LEVEL 141 MEQ/L (136-145); TOTAL PROTEIN 7.3 GM/DL (6.4-8.2)
--- NOTE | 2019-05-02 20:23 | ED PDOC ---
Provider Note Phone consult done, PSA reports collateral information increasing concern for risky dangerous behavior recently, patient's statements and accounts conflict with multiple unrelated sources, MSE not supportive good control, will recommend admission at this time. BIGG PATEL DO May 02, 2019 20:23
[2019-05-02] MEDS ORDERED: LORazepam 2 MG TAB PO PRN (21:00)
[2019-05-02] MEDS ORDERED: MOM 30ML SUSPENSION UDC PO PRN (21:00)
[2019-05-02] MEDS ORDERED: HALOPERIDOL 5 MG TAB PO PRN ×2 (21:00→21:15)
[2019-05-02] MEDS ORDERED: THIAMINE 100 MG TAB PO SCH (21:00)
[2019-05-02] MEDS: LORazepam 2 MG TAB PO PRN (21:28)
[2019-05-02] MEDS: traZODone 50 MG TAB PO PRN (21:28)
[2019-05-02] MEDS ORDERED: CELE20TA PO (22:33)
[2019-05-02] MEDS ORDERED: HYDR1CAP25 PO (22:33)
[2019-05-02] MEDS ORDERED: OXCA300T14 PO (22:33)
[2019-05-02] MEDS ORDERED: OXCA600T8 PO (22:33)
[2019-05-02] MEDS ORDERED: PATIENT COMMENTS (22:34)
[2019-05-02 22:58] VITALS: BP 152/84
[2019-05-03 03:15] VITALS: BP 152/84
[2019-05-03 06:27] VITALS: BP 136/76
[2019-05-03 06:30] VITALS: BP 136/76
[2019-05-03] MEDS ORDERED: MULTIVITAMINS/MINERALS THERAP 1 TAB PO SCH (09:00)
[2019-05-03] MEDS ORDERED: FOLIC ACID 1 MG TAB PO SCH (09:00)
--- NOTE | 2019-05-03 09:56 | MHHPEPDOC ---
General Date Of Admission: May 02, 2019 Legal Status: 9.39 Chief Complaint "I told my friend I was suicidal b/c I was angry." History of Present Illness HISTORY OF THE PRESENT ILLNESS: Patient is a 34 -year-old , female, with a history of autistic spectrum disorder (high functioning) and depression with multiple admission [facility] for SI with last d/c 04/28/19 who was brought to ED under 9.41 by PD after pt's friend had called parents who called PD b/c pt had made statements to friend that she was going to jump off a bridge, kill her parents, and if she went to skilled nursing kill her cellmate. Pt in ED had stated that it was all a misunderstanding with her parents as she had been on he way to an AA meeting when she was picked up by the PD who stated to ED she was combative with them when they picked her up. Pt in ED denied SI/HI and stated that she made the statements b/c she was angry but didn't mean them. Also admitted to drinking unknown amount of alcohol on 04/30 with no alcohol use after. After pt told she was going to admitted to ED she was hostile and defensive with ED interviewer, unsure if having SI, thoughts to push mother down stairs, and confused and paranoid thinking her father might assault her. Psychiatric Review of Systems Depression (2 or more weeks): suicidal thoughts Dora (4 or more days of): denies Psychosis: denies PTSD: denies Anxiety: situational anxiety, stressor related anxiety Anxiety/ 6 months or more of: restlessness, keyed up, difficulty concentrating, irritability, personality cluster A,BC (b) Past Psychiatric History Previous Psychiatric Diagnosis: autism spectrum disorder, schizoaffective disorder. Previous Psychiatric Admissions: Last [facility] admission 04/24/19 for SI, history of multiple psychiatric hospitalizations for violent outbursts and frequent suicide attempts starting from anywhere from age 7 onward Suicide Attempts: previous attempts to overdose and hang herself [facility] Counselor - Tc Corona at [facility] Psychiatric medications: abilify for 6yrs, severe reactions to Seroquel - oculog yric crisis. Risperdal - rash, uncontrolled shaking (extrapyramidal reaction). Past Medical History Medical Problems chronic nasal congestion and right ankle pain Head Injury: No Seizures: No Hospitalizations: No Surgeries: Yes (wisdom teeth extraction x4 in 2004) Family Medical/Psychiatric HX Medical Problems noncontributory Psychiatric Disorders: No Addiction: No Suicide Attemps/Completions: No Addiction History alcohol (The patient describes herself as a recovering alcoholic who attends AA), other (utox, bal negative) Social History Childhood: born and raised [place], [place]. 2 parent home, 1 younger brother Abuse/Trauma: denies Current Living Situation: lives with parents Education: high school edu, was in special education for Brain spectrum disorder Employment: unemployed, on Medicaid and SSI. 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 Social Support: parents Mental Status Examination General Appearance: well groomed, appears stated age Build: overweight Demeanor: very figety Eye Contact: average Activity: anxious (and irritable at times) Behavior: cooperative, restless Speech: clear, spontaneous, reg/rate,rhythm,volume Mood: anxious, irritable, other (reactive toward anger occasionally but calms down immediately when asked to) Mood "I'm not suicidal or homicidal." Affect: full, appropriate, congruent, anxious Thought Process: logical/linear, concrete, intact Thought Content (Delusions): none reported, denies SI, HI, AVH Thought Content (Other): none reported Thought Content (Aggressive): none reported Perception (Hallucinations): none reported Perception (Other): none reported Cognition (Impairment of): none reported Cognition(Intelligence Est.): average Oriented: Awake, Alert, Oriented times three Insight: fair Judgment: Poor Psychosis: Denies Diagnoses Major depressive disorder Borderline Personality d/o Autistic Spectrum D/O - high function (Asperger's) A-FIB/CHADSVASC A-FIB History Current/History of A-Fib/PAF?: No Assessment Pt seen and states "I'm no suicidal or homicidal." States that the biggest trigger in her life to her anger and acting out, making statements she doesn't mean is her parents as she feels they are very controlling, scheduling ever part of her day even down to when she can shower. States she tries to talk to her parents about her frustration with them and the control they have over her but states that it always starts an argument that get very provoking for her regarding her getting angry and anxious. States she thinks her medications are beneficial and she tolerates them well. Denies she feels she needs a med change as she states the biggest problem in her life is "environmental" meaning her parents. Her goal is to have her own apt with a roommate and is working in an independent housing program with her CM to eventually have her own apt. Pt highly encouraged to work on her behavior with her parents at home to be able to reach her goal and giving coping skill ideas to be able to make it possible. States she will work on it. Endorses anxiety even with current vistaril and is agreeable to increase to better treat her occasional anxiety. Denies SI/HI, hallucinations, delusions, and feels safe here. Initial Treatment Plan 1. Patient was admitted on a status. 2. Complete history was obtained. 3. With patients permission, family will be contacted and database will be e xpanded. 4. Patients medication regimen will be reviewed and changed accordingly. 5. Patient will be provided with protected environment. 6. Patient will be treated with individual, group, and milieu therapies. 7. Patient will receive supportive psych-education. 8. Discharge planning will commence immediately. 9. Outpatient follow-up treatment will be strongly recommended. 10. The initial treatment plan will focus initially on: * Depression. * Risk for suicide. 11. restart Citalopram 20 MG PO DAILY, Trileptal 300 MG PO QAM and 600 MG PO QHS, Propranolol HCl ER 60 MG PO QHS. Increase Vistaril 50mg q6hr prn anxiety ESTIMATED LENGTH OF STAY: 5-7 DAYS. TIME SPENT COUNSELING AND COORDINATING INITIAL CARE: 60 minutes. Vital Signs Vital Signs Date Time Temp Pulse Resp B/P (MAP) Pulse Ox O2 Delivery O2 Flow Rate FiO2 05/03/19 06:30 98.6 89 16 136/76 (96) 05/02/19 22:58 100 Room Air Laboratory Data 24H Labs Laboratory Tests 2 05/02/19 19:15: Anion Gap 5L, Glomerular Filtration Rate > 60.0, Calcium Level 8.5, Total Bilirubin 0.2, Direct Bilirubin < 0.1, Aspartate Amino Transf (AST/SGOT) 16, Alanine Aminotransferase (ALT/SGPT) 28, Alkaline Phosphatase 84, Total Protein 7.3, Albumin 3.5, Albumin/Globulin Ratio 0.92L, Thyroid Stimulating Hormone (TSH) 1.920, Human Chorionic Gonadotropin, Qual NEGATIVE, Salicylates Level < 1.7L, Acetaminophen Level < 2.0L, Ethyl Alcohol Level < 0.003 05/02/19 19:16: Nucleated Red Blood Cells % (auto) 0.0, Urine Opiates Screen NEGATIVE, Urine Methadone Screen NEGATIVE, Urine Barbiturates Screen NEGATIVE, Urine Phencyclidine Screen NEGATIVE, Urine Amphetamines Screen NEGATIVE, Urine Benzodiazepines Screen NEGATIVE, Urine Cocaine Metabolite Screen NEGATIVE, Urine Cannabinoids Screen NEGATIVE CBC/BMP Laboratory Tests 05/02/19 19:15 05/02/19 19:16 Medications Scheduled Calcium Carbonate/Vitamin D3 (Calcium 600-Vit D3 800 Tablet) 1 Each Tablet, 1 TAB PO DAILY, (Reported) Citalopram Hydrobromide (Celexa) 20 Mg Tablet, 20 MG PO DAILY, (Reported) Oxcarbazepine (Oxcarbazepine) 300 Mg Tablet, 300 MG PO DAILY, (Reported) Oxcarbazepine (Oxcarbazepine) 600 Mg Tablet, 600 MG PO QHS, (Reported) Propranolol HCl (Propranolol HCl ER) 60 Mg Cap.sa.24h, 60 MG PO QHS, (Reported) Vitamin E (Dl,Tocopheryl Acet) (Vitamin E) 400 Unit Capsule, 400 UNIT PO BID, (Reported) Scheduled PRN Hydroxyzine Pamoate (Hydroxyzine Pamoate) 25 Mg Capsule, 25 MG PO BID PRN for ANXIETY, (Reported) Melatonin (Melatonin) 3 Mg Tablet, 3 MG PO QHS PRN for SLEEP, (Reported) Miscellaneous Medications [Patient Comments] , (Reported) PATIENT IS UNCLEAR AT TIMES ABOUT WHICH MEDICATIONS SHE HAS TAKEN TODAY BUT SHE STATES SHE HAS NOT TAKEN HER EVENING MEDICAIONS Allergies Coded Allergies: Penicillins (Verified Allergy, Intermediate, rash, 01/28/19) quetiapine (Verified Allergy, Unknown, 01/28/19) risperidone (Verified Allergy, Unknown, 01/28/19) prednisone (Verified Adverse Reaction, Intermediate, anxiety, aggitation, 01/28/19) NESHA SOSA DO May 03, 2019 9:55 am
[2019-05-03] MEDS: CitaloPRAM (CeleXA) 20 MG TAB PO SCH (11:53)
[2019-05-03] MEDS: OXcarbazepine 300 MG TAB PO SCH ×2 (11:53→20:16)
[2019-05-03] MEDS: VITAMIN E 400 INTERNATIONAL UNITS CAP PO SCH ×2 (11:53→20:14)
[2019-05-03] MEDS: hydrOXYzine 50 MG TAB PO PRN (16:09)
--- NOTE | 2019-05-03 17:08 | HPE ---
DATE OF ADMISSION: 05/02/2019 DATE OF SERVICE: 05/03/2019 CHIEF COMPLAINT: "I was suicidal." HISTORY OF PRESENT ILLNESS: This is a 34-year-old female with a history of self harm with cutting, suicidal ideation, suicide attempt, obsessive compulsive disorder (OCD), schizoaffective disorder, prediabetic, autism spectrum disorder, history of alcohol use, depression and anxiety, who was brought in due to suicidal statements and was hostile and defensive. The hospitalist was called for medical history. Currently, denies any fever, chills, weight gain, weight loss, changes in appetite, change in sleep habits. Denies nausea, vomiting, abdominal pain, chest pain, pressure, tightness, shortness of breath, palpitations, lightheadedness, upper or lower extremity weakness. She has had a complaint of some neck spasms. She is concerned about alcohol withdrawal, her last drink was April 30 when she passed out after drinking three cans of hard seltzer. Denies any palpitations, dysuria, urgency, frequency, fever, chills, upper respiratory symptoms such as cough, shortness of breath, rhinorrhea, sore throat, ear pain or discharge. PAST MEDICAL HISTORY: 1. Suicidal ideation. 2. Suicide attempt. 3. Self harm by cutting. 4. Autism spectrum disorder. 5. Schizoaffective disorder. 6. Prediabetic. 7. OCD. 8. History of alcohol use. 9. Depression. 10. Anxiety. 11. Left ankle pain. PAST SURGICAL HISTORY: 1. [place] teeth extraction. SOCIAL HISTORY: Lives with her mother and father, single, unemployed. Last drink was 04/30/2019 with three cans of hard seltzer. Denies recreational drug use. FAMILY HISTORY: Mother, father and siblings alive and well with no medical issues. REVIEW OF SYSTEMS: As per history of present illness. 12-point system otherwise negative. PHYSICAL EXAMINATION: VITAL SIGNS: Temperature 98.6, pulse 89, respiratory rate 16, blood pressure 136/76, 100% on room air. GENERAL: The patient is awake, alert, oriented. Answering questions appropriately, slightly with some pressured speech. No jugular venous distention (JVD). No thyromegaly. Tongue is midline. No conversational dyspnea, able to speak in full sentences. Pupils are reactive. Extraocular muscles are intact. Tongue is midline. No pharyngeal erythema. Full range of motion of the neck. THe patient does have some tenderness over the C5-C6 area. No erythema. LUNGS: Clear to auscultation. No wheezing, rales or rhonchi. HEART: S1, S2. Sinus rhythm. No murmurs, rubs or gallops. ABDOMEN: Obese, soft, nontender, nondistended. EXTREMITIES: No cyanosis, clubbing or any pitting edema. LABORATORY DATA: On 05/02/2019: White count 8.2, hemoglobin 12, hematocrit 39, platelet count 220. Sodium 141, potassium 3.8, chloride 109, bicarbonate 27, BUN 16, creatinine 0.79, glucose 112, calcium 8.5, total bilirubin 0.2, direct bilirubin less than 0.1, AST 16, ALT 28, alkaline phosphatase 84, total protein 7.3, albumin 3.5, TSH 1.92, HCG is negative. ASSESSMENT AND PLAN: This is a 34-year-old female with a history of suicide attempt by hanging, severe depression and anxiety, self harm with cutting, autism spectrum disorder, schizoaffective disorder, obsessive compulsive disorder (OCD), prediabetic, history of alcohol use, chronic left ankle pain, admitted for suicidal ideation. CURRENT ISSUES: 1. Neck pain, previous history of attempted hanging. CT on 03/22/2019 showed no fracture, subluxation or alignment. No prevertebral swelling or airway compromise. Trachea and airway, cartilage hyoid bones are unremarkable. 2. Anxiety and depression. Managed by psychiatrist. 3. Prediabetic. Last A1/c was 5.8 on 02/05/2019. 4. History of alcohol abuse. Alcohol cessation has been provided. Referral as outpatient for alcohol detox program. The patient does not drink daily. We will monitor for any signs of withdrawal. 5. Obesity, Body Mass Index (BMI) of 37.4. 6. Deep vein thrombosis (DVT) prophylaxis. Encourage ambulation. MTDD
[2019-05-03 17:23] VITALS: BP 146/79
[2019-05-03] MEDS: PROPRANOLOL 60 MG LA CAP PO SCH (20:14)
[2019-05-03] MEDS: LORazepam 2 MG TAB PO PRN (20:16)
[2019-05-03] MEDS ORDERED: RAMELTEON 8 MG TAB (ROZEREM) PO SCH (21:00)
[2019-05-03] MEDS: RAMELTEON 8 MG TAB (ROZEREM) PO SCH (21:00)
[2019-05-04 06:21] VITALS: BP 124/68
[2019-05-04] MEDS: OXcarbazepine 300 MG TAB PO SCH ×2 (08:52→20:02)
[2019-05-04] MEDS: VITAMIN E 400 INTERNATIONAL UNITS CAP PO SCH ×2 (08:52→20:01)
[2019-05-04] MEDS: CitaloPRAM (CeleXA) 20 MG TAB PO SCH (08:52)
--- NOTE | 2019-05-04 10:23 | MHIPNPDOC ---
[facility] Progress Note Progress Note DATE OF SERVICE: 05/04/19 HISTORY: Patient is a 34 -year-old , female, with a history of autistic spectrum disorder (high functioning) and depression with multiple admission [facility] for SI with last d/c 04/28/19 who was brought to ED under 9.41 by PD after pt's friend had called parents who called PD b/c pt had made statements to friend that she was going to jump off a bridge, kill her parents, and if she went to senior care kill her cellmate. Pt in ED had stated that it was all a misunderstanding with her parents as she had been on he way to an AA meeting when she was picked up by the PD who stated to ED she was combative with them when they picked her up. Pt in ED denied SI/HI and stated that she made the statements b/c she was angry but didn't mean them. Also admitted to drinking unknown amount of alcohol on 04/30 with no alcohol use after. After pt told she was going to admitted to ED she was hostile and defensive with ED interviewer, unsure if having SI, thoughts to push mother down stairs, and confused and paranoid thinking her father might assault her. VITAL SIGNS: See below. NEW TEST RESULTS: See below. CURRENT MEDICATIONS: See below. MENTAL STATUS EXAMINATION: General Appearance: well groomed, appears stated age Build: overweight Demeanor: disrespectful, immature Eye Contact: average Activity: fidgety and irritable Behavior: disrespectful, immature Speech: clear, spontaneous, reg/rate,rhythm,volume Mood: anxious, irritable Mood "I didn't do anything" Affect: full, congruent, anxious Thought Process: logical/linear, concrete, intact Thought Content (Delusions): none reported, denies SI, HI, AVH Thought Content (Other): none reported Thought Content (Aggressive): none reported Perception (Hallucinations): none reported Perception (Other): none reported Cognition (Impairment of): none reported Cognition(Intelligence Est.): average Oriented: Awake, Alert, Oriented times three Insight: poor Judgment: Poor Psychosis: Denies DIAGNOSES: Major depressive disorder Borderline Personality d/o Autistic Spectrum D/O - high function (Asperger's) ASSESSMENT:Pt seen and was being very disrespectful with staff and myself, told by a peer pt that pt banged her head on the wall in the lounge yesterday when angry and telling pt she was threatening to harm her parents. Discussed her behavior with her and told her that I will not continue to speak with her today if she continues to be disrespectful toward me since I know she is capable of being respectful. Pt thru verbal tantrum being very disrespectful with staff over wanting her hair brush that her mother forgot to bring. Spoke to pt about how pts current behavior affects her peers on the unit and makes them not want to talk, associate, or be friendly with her. Pt responded positively toward this and appeared more motivated to act more behaviorally appropriate on the unit with her peers and staff as she very much wants friends. States she change her behavior. Related making friends with popper behavior on the unit and related it to making and keeping friends outside the hospital and now more realizes how her behavior negatively reflects on the people around her making the not want to be around her. Is trying to work on stopping playing with her hair by folding them in front of her. Continues to state that the biggest trigger in her life to her anger and acting out, making statements she doesn't mean is her parents as she feels they are very controlling, scheduling ever part of her day even down to when she can shower. States she tries to talk to her parents about her frustration with them and the control they have over her but states that it always starts an argument that get very provoking for her regarding her getting angry and anxious. States she thinks her medications are beneficial and she tolerates them well. Denies she feels she needs a med change as she states the biggest problem in her life is "environmental" meaning her parents. Per d/c associate merchandise planner, pt's are not allowing pt to return to their home so must start looking into appropriate housing for the patient. Her goal is to [place] her own apt with a roommate and is working in an independent housing program with her CM to eventually have her own apt. MANAGEMENT PLAN: continue plan, find safe discharge housing Medications: Citalopram 20 MG PO DAILY Trileptal 300 MG PO QAM and 600 MG PO QHS Propranolol HCl ER 60 MG PO QHS Vistaril 50mg bid prn anxiety TIME SPENT: 30 minutes. Vital Signs Vital Signs Date Time Temp Pulse Resp B/P (MAP) Pulse Ox O2 Delivery O2 Flow Rate FiO2 05/04/19 06:21 97.7 89 12 124/68 (86) Room Air 05/02/19 22:58 100 Current Medications Current Medications Medications (Trade) Dose Ordered Sig/Cory Route PRN Reason Start Time Stop Time Status Last Admin Dose Admin Acetaminophen (Tylenol Tab) 650 mg Q6HP PRN PO HEADACHE or DISCOMFORT 05/02/19 21:00 Citalopram Hydrobromide (CeleXA) 20 mg DAILY PO 05/03/19 09:00 05/04/19 08:52 Folic Acid (Folic Acid) 1 mg DAILY PO 05/03/19 09:00 Cancel Haloperidol (Haldol) 5 mg Q6HP PRN PO ANXIETY/AGITATION 05/02/19 21:00 05/02/19 21:06 DC Haloperidol (Haldol) 10 mg Q6HP PRN PO ANXIETY/AGITATION 05/02/19 21:15 05/03/19 20:17 Home Med (Med Rec Complete!) ASDIRECTED XX 05/02/19 22:45 05/02/19 22:38 DC Hydroxyzine HCl (Atarax) 50 mg BID PRN PO ANXIETY 05/03/19 10:00 05/03/19 16:09 Lorazepam (Ativan) 2 mg ASDIRECTED PRN PO SEE PROTOCOL 05/02/19 21:00 Cancel Lorazepam (Ativan) 2 mg Q6HP PRN PO ANXIETY/AGITATION 05/02/19 21:15 05/03/19 22:00 DC 05/03/19 20:16 Magnesium Hydroxide (Milk Of Magnesia) 30 ml DAILYPRN PRN PO CONSTIPATION 05/02/19 21:00 Multivitamins (Theragram-M) 1 tab DAILY PO 05/03/19 09:00 Cancel Oxcarbazepine (Trileptal) 300 mg DAILY PO 05/03/19 09:00 05/04/19 08:52 Oxcarbazepine (Trileptal) 600 mg QHS PO 05/03/19 21:00 05/03/19 20:16 Propranolol HCl (Inderal La) 60 mg QHS PO 05/03/19 21:00 05/03/19 20:14 Ramelteon (Rozerem) 3 mg QHS PO 05/03/19 21:00 05/03/19 20:42 DC Ramelteon (Rozerem) 8 mg QHS PO 05/03/19 21:00 Thiamine HCl (Thiamine HCl) 100 mg BID PO 05/02/19 21:00 05/03/19 10:04 DC 05/02/19 21:28 Trazodone HCl (Desyrel) 50 mg QHSP PRN PO INSOMNIA 05/02/19 21:00 05/02/19 21:28 Vitamin E (Vitamin E) 400 units BID PO 05/03/19 09:00 05/04/19 08:52 Allergies Coded Allergies: Penicillins (Verified Allergy, Intermediate, rash, 01/28/19) quetiapine (Verified Allergy, Unknown, 01/28/19) risperidone (Verified Allergy, Unknown, 01/28/19) prednisone (Verified Adverse Reaction, Intermediate, anxiety, aggitation, 01/28/19) NESHA SOSA DO May 04, 2019 10:23 am
[2019-05-04 16:10] VITALS: BP 127/67
[2019-05-04] MEDS: PROPRANOLOL 60 MG LA CAP PO SCH (20:01)
[2019-05-04] MEDS: ACETAMINOPHEN TAB 650MG DOSE (2X325MG) PO PRN (20:02)
[2019-05-04] MEDS: RAMELTEON 8 MG TAB (ROZEREM) PO SCH (21:49)
[2019-05-05 06:21] VITALS: BP 114/55
[2019-05-05] MEDS: CitaloPRAM (CeleXA) 20 MG TAB PO SCH (09:07)
[2019-05-05] MEDS: OXcarbazepine 300 MG TAB PO SCH ×2 (09:08→20:41)
[2019-05-05] MEDS: VITAMIN E 400 INTERNATIONAL UNITS CAP PO SCH ×2 (09:08→20:40)
--- NOTE | 2019-05-05 10:21 | MHIPNPDOC ---
[facility] Progress Note Progress Note DATE OF SERVICE: 05/05/19 HISTORY: Patient is a 34 -year-old , female, with a history of autistic spectrum disorder (high functioning) and depression with multiple admission [facility] for SI with last d/c 04/28/19 who was brought to ED under 9.41 by PD after pt's friend had called parents who called PD b/c pt had made statements to friend that she was going to jump off a bridge, kill her parents, and if she went to long-term kill her cellmate. Pt in ED had stated that it was all a misunderstanding with her parents as she had been on he way to an AA meeting when she was picked up by the PD who stated to ED she was combative with them when they picked her up. Pt in ED denied SI/HI and stated that she made the statements b/c she was angry but didn't mean them. Also admitted to drinking unknown amount of alcohol on 04/30 with no alcohol use after. After pt told she was going to admitted to ED she was hostile and defensive with ED interviewer, unsure if having SI, thoughts to push mother down stairs, and confused and paranoid thinking her father might assault her. VITAL SIGNS: See below. NEW TEST RESULTS: See below. CURRENT MEDICATIONS: See below. MENTAL STATUS EXAMINATION: General Appearance: well groomed, appears stated age Build: overweight Demeanor: childish, immature Eye Contact: average Activity: fidgety and irritable, childish Behavior: childish, immature Speech: clear, spontaneous, reg/rate,rhythm,volume Mood: anxious, irritable Mood "I AM GOING HOME!" Affect: full, congruent, anxious Thought Process: logical/linear, concrete, intact, in denial of current situation Thought Content (Delusions): none reported, denies SI, HI, AVH Thought Content (Other): none reported Thought Content (Aggressive): none reported Perception (Hallucinations): none reported Perception (Other): none reported Cognition (Impairment of): none reported Cognition(Intelligence Est.): average Oriented: Awake, Alert, Oriented times three Insight: poor Judgment: Poor Psychosis: Denies DIAGNOSES: Major depressive disorder Borderline Personality d/o Autistic Spectrum D/O - high function (Asperger's) ASSESSMENT:Pt seen and was being very childish refusing to believe that her parents are not allowing her to return home making threats of breaking into their home to get her stuff, demanding to be able to go home, and only wants her own apt with a roommate and refuses to except anything else. Reiterated multiple times to pt that she can't not refuse what's happening as it is happening and that she must stay away from her parents home as they do not want her their. She is very concerned about her "stuff" at her parent's home and being able to get it by any means possible. She is dramatic and illogical regard her threats to be able to return home and being able to get her stuff appearing to be in denial of current situation. She admits she's "scared" as this is a completely new situation for her and one that she didn't realize would happen so soon, feels like she not ready. Pt told that at this time her parents need some time away from her and for her to refrain from calling them and at end of interview left irritable due to not getting what she wants and stated she was going to call her parents very immaturely. Per d/c community planner, pt's are not allowing pt to return to their home so must start looking into appropriate housing for the patient. Her goal is to have her own apt with a roommate and is working in an independent housing program with her CM to eventually have her own apt. MANAGEMENT PLAN: continue plan, find safe discharge housing Medications: Citalopram 20 MG PO DAILY Trileptal 300 MG PO QAM and 600 MG PO QHS Propranolol HCl ER 60 MG PO QHS Vistaril 50mg bid prn anxiety TIME SPENT: 30 minutes. Vital Signs Vital Signs Date Time Temp Pulse Resp B/P (MAP) Pulse Ox O2 Delivery O2 Flow Rate FiO2 05/05/19 06:21 98.4 80 16 114/55 (74) 05/04/19 06:21 Room Air 05/02/19 22:58 100 Current Medications Current Medications Medications (Trade) Dose Ordered Sig/Cory Route PRN Reason Start Time Stop Time Status Last Admin Dose Admin Acetaminophen (Tylenol Tab) 650 mg Q6HP PRN PO HEADACHE or DISCOMFORT 05/02/19 21:00 05/04/19 20:02 Citalopram Hydrobromide (CeleXA) 20 mg DAILY PO 05/03/19 09:00 05/05/19 09:07 Folic Acid (Folic Acid) 1 mg DAILY PO 05/03/19 09:00 Cancel Haloperidol (Haldol) 5 mg Q6HP PRN PO ANXIETY/AGITATION 05/02/19 21:00 05/02/19 21:06 DC Haloperidol (Haldol) 10 mg Q6HP PRN PO ANXIETY/AGITATION 05/02/19 21:15 05/03/19 20:17 Home Med (Med Rec Complete!) ASDIRECTED XX 05/02/19 22:45 05/02/19 22:38 DC Hydroxyzine HCl (Atarax) 50 mg BID PRN PO ANXIETY 05/03/19 10:00 05/03/19 16:09 Lorazepam (Ativan) 2 mg ASDIRECTED PRN PO SEE PROTOCOL 05/02/19 21:00 Cancel Lorazepam (Ativan) 2 mg Q6HP PRN PO ANXIETY/AGITATION 05/02/19 21:15 05/03/19 22:00 DC 05/03/19 20:16 Magnesium Hydroxide (Milk Of Magnesia) 30 ml DAILYPRN PRN PO CONSTIPATION 05/02/19 21:00 Multivitamins (Theragram-M) 1 tab DAILY PO 05/03/19 09:00 Cancel Oxcarbazepine (Trileptal) 300 mg DAILY PO 05/03/19 09:00 05/05/19 09:08 Oxcarbazepine (Trileptal) 600 mg QHS PO 05/03/19 21:00 05/04/19 20:02 Propranolol HCl (Inderal La) 60 mg QHS PO 05/03/19 21:00 05/04/19 20:01 Ramelteon (Rozerem) 3 mg QHS PO 05/03/19 21:00 05/03/19 20:42 DC Ramelteon (Rozerem) 8 mg QHS PO 05/03/19 21:00 05/04/19 21:49 Thiamine HCl (Thiamine HCl) 100 mg BID PO 05/02/19 21:00 05/03/19 10:04 DC 05/02/19 21:28 Trazodone HCl (Desyrel) 50 mg QHSP PRN PO INSOMNIA 05/02/19 21:00 05/02/19 21:28 Vitamin E (Vitamin E) 400 units BID PO 05/03/19 09:00 05/05/19 09:08 Allergies Coded Allergies: Penicillins (Verified Allergy, Intermediate, rash, 01/28/19) quetiapine (Verified Allergy, Unknown, 01/28/19) risperidone (Verified Allergy, Unknown, 01/28/19) prednisone (Verified Adverse Reaction, Intermediate, anxiety, aggitation, 01/28/19) NESHA SOSA DO May 05, 2019 9:24 am
[2019-05-05 16:25] VITALS: BP 128/66
[2019-05-05] MEDS: PROPRANOLOL 60 MG LA CAP PO SCH (20:39)
[2019-05-05] MEDS: RAMELTEON 8 MG TAB (ROZEREM) PO SCH (20:40)
[2019-05-06 06:13] VITALS: BP 102/55
[2019-05-06] MEDS: VITAMIN E 400 INTERNATIONAL UNITS CAP PO SCH ×2 (08:50→20:35)
[2019-05-06] MEDS: CitaloPRAM (CeleXA) 20 MG TAB PO SCH (08:50)
[2019-05-06] MEDS: OXcarbazepine 300 MG TAB PO SCH ×2 (08:50→20:37)
--- NOTE | 2019-05-06 09:13 | MHIPNPDOC ---
[facility] Progress Note Progress Note DATE OF SERVICE: 05/06/19 HISTORY: Patient is a 34 -year-old , female, with a history of autistic spectrum disorder (high functioning) and depression with multiple admission [facility] for SI with last d/c 04/28/19 who was brought to ED under 9.41 by PD after pt's friend had called parents who called PD b/c pt had made statements to friend that she was going to jump off a bridge, kill her parents, and if she went to fpc kill her cellmate. Pt in ED had stated that it was all a misunderstanding with her parents as she had been on he way to an AA meeting when she was picked up by the PD who stated to ED she was combative with them when they picked her up. Pt in ED denied SI/HI and stated that she made the statements b/c she was angry but didn't mean them. Also admitted to drinking unknown amount of alcohol on 04/30 with no alcohol use after. After pt told she was going to admitted to ED she was hostile and defensive with ED interviewer, unsure if having SI, thoughts to push mother down stairs, and confused and paranoid thinking her father might assault her. VITAL SIGNS: See below. NEW TEST RESULTS: See below. CURRENT MEDICATIONS: See below. MENTAL STATUS EXAMINATION: General Appearance: well groomed, appears stated age Build: overweight Demeanor: cooperative Eye Contact: average Activity: average, less fidgety Behavior: cooperative Speech: clear, spontaneous, reg/rate,rhythm,volume Mood: euthymic, excited about future plan Mood "I'm excited" Affect: full, congruent, excited about future plan Thought Process: logical/linear, concrete, intact, future oriented Thought Content (Delusions): none reported, denies SI, HI, AVH Thought Content (Other): none reported Thought Content (Aggressive): none reported Perception (Hallucinations): none reported Perception (Other): none reported Cognition (Impairment of): none reported Cognition(Intelligence Est.): average Oriented: Awake, Alert, Oriented times three Insight: poor Judgment: Poor Psychosis: Denies DIAGNOSES: Major depressive disorder Borderline Personality d/o Autistic Spectrum D/O - high function (Asperger's) ASSESSMENT:Pt seen and ws excited to tell me that she spoke with her parents yesterday and they are going to allow her to more into her grandmother's home that is empty in which they will be her landlord and that they will help her with the home when she needs it and come over to their home for holidays. She apologized for her behavior yesterday saying she was just "scared" about the thought of not being able to return home. Talked to pt about daily responsibilities when living a lone such as cleaning and making meals which she stated she can do. States there is a gas stove in the home and highly emphasized for pt to make sure it is off after she completes cooking (place sticky note on stove as reminder) due to dangerousness should it be left on which she understood and will make sure she does. She is behaving better on the unit now that she has something to look forward to. She tolerating her medicine and finds it beneficial. Feels increase in vistaril is helping her anxiety more. Denies SI/HI, hallucinations, delusions. Feels safe here. MANAGEMENT PLAN: continue plan, find safe discharge housing Medications: Citalopram 20 MG PO DAILY Trileptal 300 MG PO QAM and 600 MG PO QHS Propranolol HCl ER 60 MG PO QHS Vistaril 50mg bid prn anxiety TIME SPENT: 30 minutes. Vital Signs Vital Signs Date Time Temp Pulse Resp B/P (MAP) Pulse Ox O2 Delivery O2 Flow Rate FiO2 05/06/19 06:13 98.7 91 16 102/55 (71) 05/04/19 06:21 Room Air 05/02/19 22:58 100 Current Medications Current Medications Medications (Trade) Dose Ordered Sig/Cory Route PRN Reason Start Time Stop Time Status Last Admin Dose Admin Acetaminophen (Tylenol Tab) 650 mg Q6HP PRN PO HEADACHE or DISCOMFORT 05/02/19 21:00 05/04/19 20:02 Citalopram Hydrobromide (CeleXA) 20 mg DAILY PO 05/03/19 09:00 05/05/19 09:07 Folic Acid (Folic Acid) 1 mg DAILY PO 05/03/19 09:00 Cancel Haloperidol (Haldol) 5 mg Q6HP PRN PO ANXIETY/AGITATION 05/02/19 21:00 05/02/19 21:06 DC Haloperidol (Haldol) 10 mg Q6HP PRN PO ANXIETY/AGITATION 05/02/19 21:15 05/03/19 20:17 Home Med (Med Rec Complete!) ASDIRECTED XX 05/02/19 22:45 05/02/19 22:38 DC Hydroxyzine HCl (Atarax) 50 mg BID PRN PO ANXIETY 05/03/19 10:00 05/03/19 16:09 Lorazepam (Ativan) 2 mg ASDIRECTED PRN PO SEE PROTOCOL 05/02/19 21:00 Cancel Lorazepam (Ativan) 2 mg Q6HP PRN PO ANXIETY/AGITATION 05/02/19 21:15 05/03/19 22:00 DC 05/03/19 20:16 Magnesium Hydroxide (Milk Of Magnesia) 30 ml DAILYPRN PRN PO CONSTIPATION 05/02/19 21:00 Multivitamins (Theragram-M) 1 tab DAILY PO 05/03/19 09:00 Cancel Oxcarbazepine (Trileptal) 300 mg DAILY PO 05/03/19 09:00 05/05/19 09:08 Oxcarbazepine (Trileptal) 600 mg QHS PO 05/03/19 21:00 05/05/19 20:41 Propranolol HCl (Inderal La) 60 mg QHS PO 05/03/19 21:00 05/05/19 20:39 Ramelteon (Rozerem) 3 mg QHS PO 05/03/19 21:00 05/03/19 20:42 DC Ramelteon (Rozerem) 8 mg QHS PO 05/03/19 21:00 05/05/19 20:40 Thiamine HCl (Thiamine HCl) 100 mg BID PO 05/02/19 21:00 05/03/19 10:04 DC 05/02/19 21:28 Trazodone HCl (Desyrel) 50 mg QHSP PRN PO INSOMNIA 05/02/19 21:00 05/02/19 21:28 Vitamin E (Vitamin E) 400 units BID PO 05/03/19 09:00 05/05/19 20:40 Allergies Coded Allergies: Penicillins (Verified Allergy, Intermediate, rash, 01/28/19) quetiapine (Verified Allergy, Unknown, 01/28/19) risperidone (Verified Allergy, Unknown, 01/28/19) prednisone (Verified Adverse Reaction, Intermediate, anxiety, aggitation, 01/28/19) NESHA SOSA DO May 06, 2019 9:12 am
[2019-05-06 15:30] VITALS: BP 131/72
[2019-05-06] MEDS: ACETAMINOPHEN TAB 650MG DOSE (2X325MG) PO PRN (18:11)
[2019-05-06] MEDS: PROPRANOLOL 60 MG LA CAP PO SCH (20:35)
[2019-05-06] MEDS: RAMELTEON 8 MG TAB (ROZEREM) PO SCH (20:35)
[2019-05-06] MEDS: traZODone 50 MG TAB PO PRN (20:36)
[2019-05-07 06:39] VITALS: BP 119/73
[2019-05-07] MEDS: CitaloPRAM (CeleXA) 20 MG TAB PO SCH (08:51)
[2019-05-07] MEDS: VITAMIN E 400 INTERNATIONAL UNITS CAP PO SCH ×2 (08:51→20:51)
[2019-05-07] MEDS: OXcarbazepine 300 MG TAB PO SCH ×2 (08:51→20:50)
--- NOTE | 2019-05-07 10:37 | MHIPNPDOC ---
[facility] Progress Note Progress Note DATE OF SERVICE: 05/07/19 HISTORY: Patient is a 34 -year-old , female, with a history of autistic spectrum disorder (high functioning) and depression with multiple admission [facility] for SI with last d/c 04/28/19 who was brought to ED under 9.41 by PD after pt's friend had called parents who called PD b/c pt had made statements to friend that she was going to jump off a bridge, kill her parents, and if she went to half-way kill her cellmate. Pt in ED had stated that it was all a misunderstanding with her parents as she had been on he way to an AA meeting when she was picked up by the PD who stated to ED she was combative with them when they picked her up. Pt in ED denied SI/HI and stated that she made the statements b/c she was angry but didn't mean them. Also admitted to drinking unknown amount of alcohol on 04/30 with no alcohol use after. After pt told she was going to admitted to ED she was hostile and defensive with ED interviewer, unsure if having SI, thoughts to push mother down stairs, and confused and paranoid thinking her father might assault her. VITAL SIGNS: See below. NEW TEST RESULTS: See below. CURRENT MEDICATIONS: See below. MENTAL STATUS EXAMINATION: General Appearance: well groomed, appears stated age Build: overweight Demeanor: cooperative Eye Contact: average Activity: average, less fidgety Behavior: cooperative Speech: clear, spontaneous, reg/rate,rhythm,volume Mood: euthymic, excited about future plan Mood "good" Affect: full, congruent, excited about future plan Thought Process: logical/linear, concrete, intact, future oriented Thought Content (Delusions): none reported, denies SI, HI, AVH Thought Content (Other): none reported Thought Content (Aggressive): none reported Perception (Hallucinations): none reported Perception (Other): none reported Cognition (Impairment of): none reported Cognition(Intelligence Est.): average Oriented: Awake, Alert, Oriented times three Insight: poor Judgment: Poor Psychosis: Denies DIAGNOSES: Major depressive disorder Borderline Personality d/o Autistic Spectrum D/O - high function (Asperger's) ASSESSMENT:Pt seen and states she looking forward to going home soon. Per d/c manufacturing planner and pt, pt will spend a short time at home with her parents as her parents continue to get grandmother's home in order for pt to move in in the near future. Pt is looking Forward to going home and moving into her grandmother's vacant home. She is behaving better on the unit now that she has something to look forward to. She tolerating her medicine and finds it beneficial. Feels vistaril is helping her anxiety more. Denies SI/HI, hallucinations, delusions. Feels safe here. MANAGEMENT PLAN: continue plan, find safe discharge housing Medications: Citalopram 20 MG PO DAILY Trileptal 300 MG PO QAM and 600 MG PO QHS Propranolol HCl ER 60 MG PO QHS Vistaril 50mg bid prn anxiety TIME SPENT: 30 minutes. Vital Signs Vital Signs Date Time Temp Pulse Resp B/P (MAP) Pulse Ox O2 Delivery O2 Flow Rate FiO2 05/07/19 06:39 97.4 84 16 119/73 (88) Room Air 05/02/19 22:58 100 Current Medications Current Medications Medications (Trade) Dose Ordered Sig/Cory Route PRN Reason Start Time Stop Time Status Last Admin Dose Admin Acetaminophen (Tylenol Tab) 650 mg Q6HP PRN PO HEADACHE or DISCOMFORT 05/02/19 21:00 05/06/19 18:11 Citalopram Hydrobromide (CeleXA) 20 mg DAILY PO 05/03/19 09:00 05/07/19 08:51 Folic Acid (Folic Acid) 1 mg DAILY PO 05/03/19 09:00 Cancel Haloperidol (Haldol) 5 mg Q6HP PRN PO ANXIETY/AGITATION 05/02/19 21:00 05/02/19 21:06 DC Haloperidol (Haldol) 10 mg Q6HP PRN PO ANXIETY/AGITATION 05/02/19 21:15 05/03/19 20:17 Home Med (Med Rec Complete!) ASDIRECTED XX 05/02/19 22:45 05/02/19 22:38 DC Hydroxyzine HCl (Atarax) 50 mg BID PRN PO ANXIETY 05/03/19 10:00 05/03/19 16:09 Lorazepam (Ativan) 2 mg ASDIRECTED PRN PO SEE PROTOCOL 05/02/19 21:00 Cancel Lorazepam (Ativan) 2 mg Q6HP PRN PO ANXIETY/AGITATION 05/02/19 21:15 05/03/19 22:00 DC 05/03/19 20:16 Magnesium Hydroxide (Milk Of Magnesia) 30 ml DAILYPRN PRN PO CONSTIPATION 05/02/19 21:00 Multivitamins (Theragram-M) 1 tab DAILY PO 05/03/19 09:00 Cancel Oxcarbazepine (Trileptal) 300 mg DAILY PO 05/03/19 09:00 05/07/19 08:51 Oxcarbazepine (Trileptal) 600 mg QHS PO 05/03/19 21:00 05/06/19 20:37 Propranolol HCl (Inderal La) 60 mg QHS PO 05/03/19 21:00 05/06/19 20:35 Ramelteon (Rozerem) 3 mg QHS PO 05/03/19 21:00 05/03/19 20:42 DC Ramelteon (Rozerem) 8 mg QHS PO 05/03/19 21:00 05/06/19 20:35 Thiamine HCl (Thiamine HCl) 100 mg BID PO 05/02/19 21:00 05/03/19 10:04 DC 05/02/19 21:28 Trazodone HCl (Desyrel) 50 mg QHSP PRN PO INSOMNIA 05/02/19 21:00 05/06/19 20:36 Vitamin E (Vitamin E) 400 units BID PO 05/03/19 09:00 05/07/19 08:51 Allergies Coded Allergies: Penicillins (Verified Allergy, Intermediate, rash, 01/28/19) quetiapine (Verified Allergy, Unknown, 01/28/19) risperidone (Verified Allergy, Unknown, 01/28/19) prednisone (Verified Adverse Reaction, Intermediate, anxiety, aggitation, 01/28/19) NESHA SOSA DO May 07, 2019 10:37 am
[2019-05-07 16:16] VITALS: BP 118/64
[2019-05-07] MEDS: RAMELTEON 8 MG TAB (ROZEREM) PO SCH (20:51)
[2019-05-07] MEDS: hydrOXYzine 50 MG TAB PO PRN (20:51)
[2019-05-07] MEDS: PROPRANOLOL 60 MG LA CAP PO SCH (20:52)
[2019-05-08 05:56] VITALS: BP 138/87
[2019-05-08] MEDS: VITAMIN E 400 INTERNATIONAL UNITS CAP PO SCH ×2 (08:57→20:31)
[2019-05-08] MEDS: CitaloPRAM (CeleXA) 20 MG TAB PO SCH (08:57)
[2019-05-08] MEDS: OXcarbazepine 300 MG TAB PO SCH ×2 (08:57→20:30)
[2019-05-08 16:19] VITALS: BP 129/66
[2019-05-08] MEDS: PROPRANOLOL 60 MG LA CAP PO SCH (20:31)
[2019-05-08] MEDS: RAMELTEON 8 MG TAB (ROZEREM) PO SCH (20:31)
[2019-05-09 05:42] VITALS: BP 124/60
[2019-05-09] MEDS: CitaloPRAM (CeleXA) 20 MG TAB PO SCH (09:08)
[2019-05-09] MEDS: OXcarbazepine 300 MG TAB PO SCH ×2 (09:09→20:43)
[2019-05-09] MEDS: VITAMIN E 400 INTERNATIONAL UNITS CAP PO SCH ×2 (09:09→20:42)
[2019-05-09 16:07] VITALS: BP 140/74
[2019-05-09] MEDS: hydrOXYzine 50 MG TAB PO PRN (18:59)
[2019-05-09 20:42] VITALS: BP 140/74
[2019-05-09] MEDS: RAMELTEON 8 MG TAB (ROZEREM) PO SCH (20:42)
[2019-05-09] MEDS: PROPRANOLOL 60 MG LA CAP PO SCH (20:42)
[2019-05-09] MEDS: traZODone 50 MG TAB PO PRN (20:43)
[2019-05-10 06:21] VITALS: BP 100/51
[2019-05-10] MEDS: VITAMIN E 400 INTERNATIONAL UNITS CAP PO SCH (08:23)
[2019-05-10] MEDS: CitaloPRAM (CeleXA) 20 MG TAB PO SCH (08:23)
[2019-05-10] MEDS: OXcarbazepine 300 MG TAB PO SCH (08:23)
--- NOTE | 2019-05-10 09:11 | MHDSPDOC ---
[facility] Discharge Summary Discharge Summary DATE OF ADMISSION: May 02, 2019 at 8:58 pm DATE OF DISCHARGE: May 10, 2019 DISCHARGE DIAGNOSES: Major depressive disorder Borderline Personality d/o Autistic Spectrum D/O - high function (Asperger's) REASON FOR ADMISSION: Patient is a 34 -year-old , female, with a history of autistic spectrum disorder (high functioning) and depression with multiple admission [facility] for SI with last d/c 04/28/19 who was brought to ED under 9.41 by PD after pt's friend had called parents who called PD b/c pt had made statements to friend that she was going to jump off a bridge, kill her parents, and if she went to longterm kill her cellmate. Pt in ED had stated that it was all a misunderstanding with her parents as she had been on he way to an AA meeting when she was picked up by the PD who stated to ED she was combative with them when they picked her up. Pt in ED denied SI/HI and stated that she made the s tatements b/c she was angry but didn't mean them. Also admitted to drinking unknown amount of alcohol on 04/30 with no alcohol use after. After pt told she was going to admitted to ED she was hostile and defensive with ED interviewer, unsure if having SI, thoughts to push mother down stairs, and confused and paranoid thinking her father might assault her. CONSULTANTS INVOLVED: Pt was admitted to [facility], seen for psychiatric assessment and restarted on her outpatient psychiatric medications trileptal, celexa, and propranolol. She tolerated all her medication well and found them beneficial for her. She was provided vistaril increased to 50mg q6hr prn anxiety and trazodone 50mg qhs prn insomnia. Pt found her medications beneficial and junie ated them well. She attended groups daily during her stay. Her symptoms improved with treatment. She stated she felt much better since stopping any antipsychotics. Worked with pt daily on working with her anger management and acting like a mature adult like she is. Pt found this helpful. On day of discharge she denied depression, anxiety, insomnia, SI/HI, hallucinations, delusions. She was discharged home after family meeting with her mother with follow-up at [facility] and [facility]. She felt safe for discharge. DISCHARGE ASSESSMENT: Patient seen and states she feels "good" today and is looking forward to going home with her mother today then moving into her grandmother's home in the near future. Per d/c exercise planner and pt, pt will spend a short time at home with her parents as her parents continue to get grandmother's home in order for pt to move in in the near future. She is behaving well on the unit now that she has something to look forward to. She tolerating her medicine and finds it beneficial. Feels vistaril is helping her anxiety more. Denies depression, anxiety, insomnia, SI/HI, hallucinations, delusions. Feels safe to d/c home with her mother. MENTAL STATUS EXAMINATION ON DISCHARGE: General Appearance: well groomed, appears stated age, personal clothes Build: overweight Demeanor: cooperative Eye Contact: intense Activity: average Behavior: cooperative Speech: clear, spontaneous, reg/rate,rhythm,volume Mood: euthymic, full range Mood "good." Affect: full, euthymic, congruent Thought Process: logical/linear, concrete Thought Content (Delusions): denies SI/HI, AVH, denies paranoia Thought Content (Aggressive): none reported Perception (Hallucinations): Denies. Perception (Other): none reported Cognition (Impairment of): none reported Cognition(Intelligence Est.): average Oriented: Awake, Alert, Oriented times three Insight: fair-good Judgment: Fair-good Psychosis: Denies MEDICATIONS ON DISCHARGE: Citalopram 20 MG PO DAILY Trileptal 300 MG PO QAM and 600 MG PO QHS Propranolol HCl ER 60 MG PO QHS Vistaril 50mg q6hr prn anxiety PLAN/FOLLOWUP ARRANGEMENTS: D/c home with mother with follow-up at [facility] The amount of time spent in the coordination of care for this patient was approximately 30 minutes. Vital Signs/I&Os Vital Signs Date Time Temp Pulse Resp B/P (MAP) Pulse Ox O2 Delivery O2 Flow Rate FiO2 05/10/19 06:21 97.7 77 14 100/51 (67) 05/07/19 06:39 Room Air Medications Scheduled Calcium Carbonate/Vitamin D3 (Calcium 600-Vit D3 800 Tablet) 1 Each Tablet, 1 TAB PO DAILY, (Reported) Citalopram Hydrobromide (Celexa) 20 Mg Tablet, 20 MG PO DAILY, (Reported) Oxcarbazepine (Oxcarbazepine) 300 Mg Tablet, 300 MG PO DAILY, (Reported) Oxcarbazepine (Oxcarbazepine) 600 Mg Tablet, 600 MG PO QHS, (Reported) Propranolol HCl (Propranolol HCl ER) 60 Mg Cap.sa.24h, 60 MG PO QHS, (Reported) Vitamin E (Dl,Tocopheryl Acet) (Vitamin E) 400 Unit Capsule, 400 UNIT PO BID, (Reported) Scheduled PRN Hydroxyzine Pamoate (Hydroxyzine Pamoate) 25 Mg Capsule, 25 MG PO BID PRN for ANXIETY, (Reported) Melatonin (Melatonin) 3 Mg Tablet, 3 MG PO QHS PRN for SLEEP, (Reported) Miscellaneous Medications [Patient Comments] , (Reported) PATIENT IS UNCLEAR AT TIMES ABOUT WHICH MEDICATIONS SHE HAS TAKEN TODAY BUT SHE STATES SHE HAS NOT TAKEN HER EVENING MEDICAIONS Allergies Coded Allergies: Penicillins (Verified Allergy, Intermediate, rash, 01/28/19) quetiapine (Verified Allergy, Unknown, 01/28/19) risperidone (Verified Allergy, Unknown, 01/28/19) prednisone (Verified Adverse Reaction, Intermediate, anxiety, aggitation, 01/28/19) NESHA SOSA DO May 10, 2019 9:11 am
[2019-05-10] MEDS ORDERED: HYDR50TA70 PO (09:35)
== END 2019-05-10 13:10 | disposition home or self-care (01) | DRG 754 ==
LOC: M ED 18:50 → M ED INP 20:58 → M PSY 22:46
PROVIDERS: ADMIT Psychiatry & Neurology Addiction Medicine; ATTEND Psychiatry & Neurology Psychiatry
DX: F32.9 Major depressive disorder, single episode, unspecified (principal); F60.3 Borderline personality disorder; F84.5 Asperger's syndrome; Z91.5 Personal history of self-harm; Z79.899 Other long term (current) drug therapy; Z88.0 Allergy status to penicillin; Z88.8 Allergy status to other drugs, medicaments and biological substances; F25.9 Schizoaffective disorder, unspecified; R73.03 Prediabetes; F42.9 Obsessive-compulsive disorder, unspecified; F41.9 Anxiety disorder, unspecified; M25.572 Pain in left ankle and joints of left foot; E66.9 Obesity, unspecified; Z68.37 Body mass index [BMI] 37.0-37.9, adult; Z60.9 Problem related to social environment, unspecified; Z87.898 Personal history of other specified conditions; F10.21 Alcohol dependence, in remission

== ENCOUNTER → 2019-05-13 | Outpatient (CLI) | payer MEDICAID ==
[~2019-05-13] MED LIST changes: +ACET-683 PO; +BENZ0.5T23; +HYDR50TA70 PO; +PATIENT COMMENTS
[2019-05-13 10:42] LABS: BASO # 0.1 10^3/uL (0.0-0.2); BASO % 0.7 % (0.0-1.0); EOS # 0.2 10^3/uL (0.0-0.5); EOS % 2.3 % (0.0-3.0); HEMATOCRIT 39.1 % (36.0-47.0); HEMOGLOBIN 12.4 g/dl (12.0-15.5); LYMPH # 1.2 10^3/uL (1.5-5.0); LYMPH % 15.6 % (24.0-44.0); MEAN CORPUSCULAR HEMOGLOBIN 28.3 pg (27.0-33.0); MEAN CORPUSCULAR HGB CONC 31.7 g/dl (32.0-36.5); MEAN CORPUSCULAR VOLUME 89.3 fl (80.0-96.0); MONO # 0.8 10^3/uL (0.0-0.8); MONO % 11.3 % (0.0-5.0); NEUTROPHILS # 5.2 10^3/uL (1.5-8.5); NEUTROPHILS % 69.7 % (36.0-66.0); PLATELET COUNT, AUTOMATED 234 10^3/uL (150-450); RED BLOOD COUNT 4.38 10^6/uL (4.00-5.40); WHITE BLOOD COUNT 7.4 10^3/uL (4.0-10.0)
[2019-05-13 11:33] LABS: ALBUMIN 3.3 GM/DL (3.2-5.2); ALT/SGPT 36 U/L (12-78); AMYLASE 52 U/L (25-115); BILIRUBIN,TOTAL 0.3 MG/DL (0.2-1.0); BLOOD UREA NITROGEN 16 MG/DL (7-18); CALCIUM LEVEL 8.2 MG/DL (8.5-10.1); CARBON DIOXIDE LEVEL 26 MEQ/L (21-32); CHLORIDE LEVEL 105 MEQ/L (98-107); CHOLESTEROL LEVEL 187 MG/DL (<200); CHOLESTEROL RISK RATIO 3.816 (<5); CREATININE FOR GFR 0.77 MG/DL (0.55-1.30); FREE T4 0.76 NG/DL (0.76-1.46); GLOMERULAR FILTRATION RATE > 60.0 (>60); GLUCOSE, FASTING 105 MG/DL (70-100); HDL CHOLESTEROL 49 MG/DL (>40); LDL CHOLESTEROL 118 MG/DL (<100); LIPASE 129 U/L (73-393); NON-HDL-C 138 MG/DL; POTASSIUM SERUM 4.1 MEQ/L (3.5-5.1); SODIUM LEVEL 138 MEQ/L (136-145); TOTAL PROTEIN 6.9 GM/DL (6.4-8.2); TRIGLYCERIDES LEVEL 102 MG/DL (<150)
[2019-05-13 13:21] LABS: TOTAL 25(OH) VITAMIN D 25.9 NG/ML (30.0-100.0)
--- NOTE | 2019-05-14 01:15 | ECGEPIP ---
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
[2019-05-16 14:09] LABS: OXCARBAZEPINE 15 ug/mL (10-35)
== END ==
LOC: M LAB 08:25
PROVIDERS: ATTEND Psychiatry & Neurology Child & Adolescent Psychiatry
DX: F25.9 Schizoaffective disorder, unspecified (principal)

== ENCOUNTER 2019-05-17 12:42 | Emergency (ER) | payer MEDICAID ==
[~2019-05-17] VITALS: Ht 157.5 cm; Wt 92.7 kg
[~2019-05-17 12:42] MED LIST changes: -ACET-683 PO; -BENZ0.5T23
[2019-05-17] MEDS ORDERED: ACET-683 PO (12:59)
[2019-05-17] MEDS ORDERED: VRAY6CAP PO (12:59)
[2019-05-17] MEDS ORDERED: BENZ0.5T23 (12:59)
[2019-05-17 14:01] LABS: HEMATOCRIT 40.3 % (36.0-47.0); HEMOGLOBIN 13.3 g/dl (12.0-15.5); MEAN CORPUSCULAR HEMOGLOBIN 27.9 pg (27.0-33.0); MEAN CORPUSCULAR VOLUME 84.7 fl (80.0-96.0); PLATELET COUNT, AUTOMATED 290 10^3/uL (150-450); RED BLOOD COUNT 4.76 10^6/uL (4.00-5.40); WHITE BLOOD COUNT 9.6 10^3/uL (4.0-10.0)
[2019-05-17] MEDS ORDERED: HYDR1CAP25 PO (14:20)
[2019-05-17 14:29] LABS: AMPHETAMINES LEVEL URINE NEGATIVE (NEGATIVE); BARBITURATES URINE NEGATIVE (NEGATIVE); BENZODIAZEPINES URINE NEGATIVE (NEGATIVE); CANNABINOIDS URINE NEGATIVE (NEGATIVE); COCAINE METABOLITE URINE NEGATIVE (NEGATIVE); METHADONE URINE NEGATIVE (NEGATIVE); OPIATES URINE NEGATIVE (NEGATIVE); PHENCYCLIDINE URINE NEGATIVE (NEGATIVE)
[2019-05-17 14:39] LABS: ACETAMINOPHEN LEVEL < 2.0 UG/ML (10.0-30.0); ALBUMIN 3.9 GM/DL (3.2-5.2); ALT/SGPT 31 U/L (12-78); BILIRUBIN,DIRECT < 0.1 MG/DL (0.0-0.2); BILIRUBIN,TOTAL 0.3 MG/DL (0.2-1.0); BLOOD UREA NITROGEN 14 MG/DL (7-18); CALCIUM LEVEL 9.6 MG/DL (8.5-10.1); CARBON DIOXIDE LEVEL 28 MEQ/L (21-32); CHLORIDE LEVEL 105 MEQ/L (98-107); ETHYL ALCOHOL (ETHANOL) < 0.003 % (0.000-0.010); GLOMERULAR FILTRATION RATE > 60.0 (>60); GLUCOSE, FASTING 95 MG/DL (70-100); POTASSIUM SERUM 4.4 MEQ/L (3.5-5.1); SALICYLATE LEVEL < 1.7 MG/DL (5.0-30.0); SODIUM LEVEL 138 MEQ/L (136-145); TOTAL PROTEIN 7.5 GM/DL (6.4-8.2)
--- NOTE | 2019-05-17 15:03 | ED PDOC ---
Provider Note Date of Service: 05/17/2019 Summary I met with the patient with Dr. Abernathy and agree with her assessment as well. The patient briefly is a 34-year-old woman with a long well known history of autism who has presented multiple times with anger and frustration based outbursts especially in the context of alcohol use of which he struggles with. The patient has met with today where she had made a similar outbursts. Her mother and father appear highly interested in her being placed on anti-psychotic, although these have made little affect on the patient and have caused her side effects of which the patient wishes not to have. There appears to be a significant investment from the parents in her admissions wanting her to be committed for long periods of time. Further increasing, both Dr. Abernathy and I are concerned that there is possibly secondary gain involved in the patient's frequent admissions as she is currently under guardianship with her parents. The patient after simple ref lective statements becomes far more calm and she demonstrates signs and symptoms of autism with poor frustration tolerance, difficulty with transitions, difficulty forming basic relationships and empathy all critical components. She has no formal history of a neuropsychological testing and after a short discussion with Dr. Abernathy and myself, it appears that she does not meet involun tary criteria and she has a normal mental status exam, denying suicidal or homicidal ideation to us and primarily appears to be autistic, not greatly changed from her baseline. She declines voluntary admission and thus must be discharged in good marta. Whether anti-psychotics are useful, I can only comment that they are generally off label in individuals with autism especially adults as she has reportedly tried a quite a number of them. Friday BIGG PATEL DO May 17, 2019 15:03
--- NOTE | 2019-05-17 15:46 | MHCRPDOC ---
[facility] Consultation Consultation DATE OF CONSULTATION: 05/17/19 CONSULTATION REQUESTED BY: ED REASON FOR CONSULTATION: situational disturbance RELEVANT HISTORY: Patient is a 34 -year-old , female, with a history of autistic spectrum disorder (high functioning) and depression with multiple admission [facility] for SI with last d/c 04/28/19 who was brought to ED under 9.41 by PCP via PD for anger and the patient stating she needed an antipsychotic. Pt s een with Dr. Lorenzana in ED, stating that she's angry b/c her parents are no longer allowing her to go to her grandmother's house as had been discussed while pt on [facility] (d/c 04/28/19) and now telling her that she is not stable and she needs to get into [facility] program. Pt states the reason her PCP had ordered 9.41 was b/c pt angry and admitted to her she almost slept with a man she isn't too which pt stated in ED she knows she shouldn't have done that, has learned her leason, and won't do again. Pt denies SI/HI, hallucination, delusions. She called down during interview to being no longer angry and was able to discuss proper coping mechanisms for anger at home such as going to room, writing, reading, watching tv, punching pillow which she states she'll use. Pt is stable and safe to be d/c, wants to be d/c, and is very future oriented toward being home for Thanksgiving this week. States she wants to continue with her follow-up at [facility]. PAST PSYCHIATRIC HISTORY: Last d/c from [facility] 05/08/19 after presenting for similar complaint as to today multiple recent admissions [facility] for similar reasons follow-up at [facility] PAST MEDICAL HISTORY: per ED and past records FAMILY HISTORY: per past records PERSONAL AND SOCIAL HISTORY: T per past records SUBSTANCE ABUSE HISTORY: denies LEGAL HISTORY: denies MENTAL STATUS EXAMINATION: Patient is a 34-year old female, who is stated age in hospital gown sitting on bed calmly Speech is reg rate, rhythm, volume. Language skills are good Thought processes including: linear, concrete, future oriented Thought content: denies SI/HI, situational anger due to parents no longer her to live in grandmother's vacant home after she was told she could Abstract reasoning, and computation: intact Description of associations:appropriate Description of abnormal or psychotic thoughts: denies Judgment: fair-good Insight: fair-good Orientation to x3 Recent and remote memory: intact Attention span and concentration: good Language: good Fund of knowledge: average Mood: "better" Affect: anxious at first then euthymic and calm with talking DIAGNOSIS: Situational Anxiety PLAN: D/c home with parents with follow-up at [facility]. Vital Signs Vital Signs Date Time Temp Pulse Resp B/P (MAP) Pulse Ox O2 Delivery O2 Flow Rate FiO2 05/17/19 12:47 97.4 112 18 142/103 97 Room Air Laboratory Data 24H Labs Laboratory Tests 2 05/17/19 13:16: Urine Opiates Screen NEGATIVE, Urine Methadone Screen NEGATIVE, Urine Barbiturates Screen NEGATIVE, Urine Phencyclidine Screen NEGATIVE, Urine Amphetamines Screen NEGATIVE, Urine Benzodiazepines Screen NEGATIVE, Urine Cocaine Metabolite Screen NEGATIVE, Urine Cannabinoids Screen NEGATIVE 05/17/19 13:42: Nucleated Red Blood Cells % (auto) 0.0, Anion Gap 5L, Glomerular Filtration Rate > 60.0, Calcium Level 9.6, Total Bilirubin 0.3, Direct Bilirubin < 0.1, Aspartate Amino Transf (AST/SGOT) 15, Alanine Aminotransferase (ALT/SGPT) 31, Alkaline Phosphatase 107, Total Protein 7.5, Albumin 3.9, Albumin/Globulin Ratio 1.08, Thyroid Stimulating Hormone (TSH) 1.280, Salicylates Level < 1.7L, Acetaminophen Level < 2.0L, Ethyl Alcohol Level < 0.003 Home Medications Current Medications Current Medications Medications (Trade) Dose Ordered Sig/Cory Route PRN Reason Start Time Stop Time Status Last Admin Dose Admin Home Med (Med Rec Complete!) ASDIRECTED XX 05/17/19 14:30 05/17/19 14:25 DC Scheduled Calcium Carbonate/Vitamin D3 (Calcium 600-Vit D3 800 Tablet) 1 Each Tablet, 1 TAB PO DAILY, (Reported) Citalopram Hydrobromide (Celexa) 20 Mg Tablet, 20 MG PO DAILY, (Reported) Hydroxyzine Pamoate (Hydroxyzine Pamoate) 25 Mg Capsule, 25 MG PO BID, (Reported) TAKES AT 0800/1200 Oxcarbazepine (Oxcarbazepine) 300 Mg Tablet, 300 MG PO DAILY, (Reported) Oxcarbazepine (Oxcarbazepine) 600 Mg Tablet, 600 MG PO QHS, (Reported) Propranolol HCl (Propranolol HCl ER) 60 Mg Cap.sa.24h, 60 MG PO QHS, (Reported) Vitamin E (Dl,Tocopheryl Acet) (Vitamin E) 400 Unit Capsule, 400 UNIT PO BID, (Reported) Scheduled PRN Acetaminophen (Acetaminophen) 500 Mg Tablet, 1,000 MG PO Q6H PRN for PAIN, (Reported) Melatonin (Melatonin) 3 Mg Tablet, 3 MG PO QHS PRN for SLEEP, (Reported) Allergies Coded Allergies: Penicillins (Verified Allergy, Intermediate, rash, 01/28/19) hydroxyzine (Verified Allergy, Intermediate, ITCH/RASH , 05/17/19) CAN TAKE HYDROXYZINE PAMOATE risperidone (Verified Allergy, Intermediate, RASH, 05/17/19) prednisone (Verified Adverse Reaction, Intermediate, anxiety, agitation, 05/17/19) quetiapine (Verified Adverse Reaction, Intermediate, OCULOGYRIC CRISIS, 05/17/19) Uncoded Allergies: FRANCISCO LOPEZ (Allergy, Intermediate, RASH, 05/17/19) NESHA SOSA DO May 17, 2019 15:46
[2019-05-17 16:54] VITALS: BP 133/77
== END 2019-05-17 17:03 | disposition home or self-care (01) ==
LOC: M ED 12:42
DX: F43.20 Adjustment disorder, unspecified (principal); F25.9 Schizoaffective disorder, unspecified; E78.9 Disorder of lipoprotein metabolism, unspecified; F32.9 Major depressive disorder, single episode, unspecified; F84.0 Autistic disorder; Z79.899 Other long term (current) drug therapy; Z88.0 Allergy status to penicillin; Z88.8 Allergy status to other drugs, medicaments and biological substances; Z91.048 Other nonmedicinal substance allergy status
CPT/HCPCS: 36415; 80048; 80076; 80307; 84443; 85027; 99283; G0480

== ENCOUNTER 2019-05-18 12:35 | Emergency (ER) | payer MEDICAID ==
[~2019-05-18 12:35] MED LIST changes: +ACET-683 PO; +BENZ0.5T23
[2019-05-18 13:55] LABS: HEMATOCRIT 42.5 % (36.0-47.0); HEMOGLOBIN 13.6 g/dl (12.0-15.5); MEAN CORPUSCULAR HEMOGLOBIN 27.9 pg (27.0-33.0); MEAN CORPUSCULAR VOLUME 87.1 fl (80.0-96.0); PLATELET COUNT, AUTOMATED 284 10^3/uL (150-450); RED BLOOD COUNT 4.88 10^6/uL (4.00-5.40); WHITE BLOOD COUNT 8.3 10^3/uL (4.0-10.0)
[2019-05-18 14:25] LABS: AMPHETAMINES LEVEL URINE NEGATIVE (NEGATIVE); BARBITURATES URINE NEGATIVE (NEGATIVE); BENZODIAZEPINES URINE NEGATIVE (NEGATIVE); CANNABINOIDS URINE NEGATIVE (NEGATIVE); COCAINE METABOLITE URINE NEGATIVE (NEGATIVE); HCG, SERUM QUALITATIVE NEGATIVE (NEGATIVE); METHADONE URINE NEGATIVE (NEGATIVE); OPIATES URINE NEGATIVE (NEGATIVE); PHENCYCLIDINE URINE NEGATIVE (NEGATIVE)
[2019-05-18 14:36] LABS: ACETAMINOPHEN LEVEL < 2.0 UG/ML (10.0-30.0); ALT/SGPT 31 U/L (12-78); BILIRUBIN,DIRECT < 0.1 MG/DL (0.0-0.2); BILIRUBIN,TOTAL 0.3 MG/DL (0.2-1.0); BLOOD UREA NITROGEN 17 MG/DL (7-18); CALCIUM LEVEL 9.3 MG/DL (8.5-10.1); CARBON DIOXIDE LEVEL 27 MEQ/L (21-32); CHLORIDE LEVEL 105 MEQ/L (98-107); CREATININE FOR GFR 0.81 MG/DL (0.55-1.30); ETHYL ALCOHOL (ETHANOL) < 0.003 % (0.000-0.010); GLOMERULAR FILTRATION RATE > 60.0 (>60); GLUCOSE, FASTING 99 MG/DL (70-100); POTASSIUM SERUM 4.5 MEQ/L (3.5-5.1); SALICYLATE LEVEL < 1.7 MG/DL (5.0-30.0); SODIUM LEVEL 138 MEQ/L (136-145); TOTAL PROTEIN 7.9 GM/DL (6.4-8.2)
[2019-05-18] MEDS ORDERED: ALPRAZolam 0.5 MG TAB PO ONE (14:45)
[2019-05-18 21:10] VITALS: BP 125/80
--- NOTE | 2019-05-19 08:54 | ECGEPIP ---
[facility] - ED Test Date: 2019-05-18 Pat Name: LISA HUGO Department: Room: - Gender: Female Hot Man: KC : 1985 Requested By: MARIBELL CHERRY Order Number: [id number] Reading MD: Zaid Dowd Measurements Intervals [place] Rate: 70 P: 63 [place]: 149 QRS: 64 QRSD: 79 T: 47 QT: 375 QTc: 406 Interpretive Statements SINUS RHYTHM WITH SINUS ARRHYTHMIA SIMILAR TO 05/13/19 Electronically Signed on 05-19-2019 8:53:45 EST by Zaid Dowd
== END 2019-05-18 21:12 | disposition short-term general hospital (02) ==
LOC: M ED 12:35
DX: F43.20 Adjustment disorder, unspecified (principal); R45.851 Suicidal ideations; F20.9 Schizophrenia, unspecified; F84.0 Autistic disorder; F99 Mental disorder, not otherwise specified; F10.10 Alcohol abuse, uncomplicated; Z88.0 Allergy status to penicillin; Z88.8 Allergy status to other drugs, medicaments and biological substances; Z91.048 Other nonmedicinal substance allergy status; Z79.899 Other long term (current) drug therapy
CPT/HCPCS: 36415; 80048; 80076; 80307; 84443; 84703; 85027; 93005; 99285; G0480

== ENCOUNTER 2019-07-24 09:25 | Emergency (ER) | payer MEDICAID ==
[2019-07-24] MEDS ORDERED: BENZ0.5T23 (09:52)
[2019-07-24] MEDS ORDERED: ARIP1TAB10 (09:52)
[2019-07-24] MEDS ORDERED: ARIP1TAB6 (09:52)
[2019-07-24] MEDS ORDERED: METF500T13 (09:52)
[2019-07-24 10:25] LABS: HEMOGLOBIN 13.1 g/dl (12.0-15.5); MEAN CORPUSCULAR HEMOGLOBIN 26.8 pg (27.0-33.0); MEAN CORPUSCULAR HGB CONC 31.2 g/dl (32.0-36.5); MEAN CORPUSCULAR VOLUME 85.9 fl (80.0-96.0); PLATELET COUNT, AUTOMATED 240 10^3/uL (150-450); RED BLOOD COUNT 4.89 10^6/uL (4.00-5.40); WHITE BLOOD COUNT 8.4 10^3/uL (4.0-10.0)
[2019-07-24 10:47] LABS: HCG, SERUM QUALITATIVE NEGATIVE (NEGATIVE)
[2019-07-24 10:52] LABS: AMPHETAMINES LEVEL URINE NEGATIVE (NEGATIVE); BARBITURATES URINE NEGATIVE (NEGATIVE); BENZODIAZEPINES URINE NEGATIVE (NEGATIVE); CANNABINOIDS URINE NEGATIVE (NEGATIVE); COCAINE METABOLITE URINE NEGATIVE (NEGATIVE); METHADONE URINE NEGATIVE (NEGATIVE); OPIATES URINE NEGATIVE (NEGATIVE); PHENCYCLIDINE URINE NEGATIVE (NEGATIVE)
[2019-07-24 11:01] LABS: ACETAMINOPHEN LEVEL < 2.0 UG/ML (10.0-30.0); ALBUMIN 3.8 GM/DL (3.2-5.2); ALT/SGPT 40 U/L (12-78); BILIRUBIN,DIRECT < 0.1 MG/DL (0.0-0.2); BILIRUBIN,TOTAL 0.2 MG/DL (0.2-1.0); BLOOD UREA NITROGEN 13 MG/DL (7-18); CALCIUM LEVEL 8.6 MG/DL (8.5-10.1); CARBON DIOXIDE LEVEL 26 MEQ/L (21-32); CHLORIDE LEVEL 107 MEQ/L (98-107); CREATININE FOR GFR 0.81 MG/DL (0.55-1.30); ETHYL ALCOHOL (ETHANOL) < 0.003 % (0.000-0.010); GLOMERULAR FILTRATION RATE > 60.0 (>60); GLUCOSE, FASTING 100 MG/DL (70-100); POTASSIUM SERUM 4.2 MEQ/L (3.5-5.1); SALICYLATE LEVEL < 1.7 MG/DL (5.0-30.0); SODIUM LEVEL 140 MEQ/L (136-145); TOTAL PROTEIN 7.4 GM/DL (6.4-8.2)
[2019-07-24 14:56] VITALS: BP 128/70
== END 2019-07-24 14:57 | disposition home or self-care (01) ==
LOC: M ED 09:25
DX: F43.0 Acute stress reaction (principal); F20.9 Schizophrenia, unspecified; Z79.84 Long term (current) use of oral hypoglycemic drugs; Z79.899 Other long term (current) drug therapy; Z91.5 Personal history of self-harm; Z91.048 Other nonmedicinal substance allergy status; Z88.0 Allergy status to penicillin; Z88.8 Allergy status to other drugs, medicaments and biological substances
CPT/HCPCS: 36415; 80048; 80076; 80307; 84443; 84703; 85027; 99284; G0480

== ENCOUNTER 2019-10-01 17:46 | Emergency (ER) | payer MEDICAID ==
[~2019-10-01] VITALS: Ht 157.5 cm; Wt 95.5 kg
[~2019-10-01 17:46] MED LIST changes: +ARIP1TAB10; +ARIP1TAB6; +METF500T13
[2019-10-01 19:10] LABS: HEMATOCRIT 41.7 % (36.0-47.0); HEMOGLOBIN 13.3 g/dl (12.0-15.5); MEAN CORPUSCULAR HEMOGLOBIN 27.2 pg (27.0-33.0); MEAN CORPUSCULAR HGB CONC 31.9 g/dl (32.0-36.5); MEAN CORPUSCULAR VOLUME 85.3 fl (80.0-96.0); PLATELET COUNT, AUTOMATED 286 10^3/uL (150-450); RED BLOOD COUNT 4.89 10^6/uL (4.00-5.40); WHITE BLOOD COUNT 9.8 10^3/uL (4.0-10.0)
[2019-10-01 19:26] LABS: AMPHETAMINES LEVEL URINE NEGATIVE (NEGATIVE); BARBITURATES URINE NEGATIVE (NEGATIVE); BENZODIAZEPINES URINE NEGATIVE (NEGATIVE); CANNABINOIDS URINE NEGATIVE (NEGATIVE); COCAINE METABOLITE URINE NEGATIVE (NEGATIVE); METHADONE URINE NEGATIVE (NEGATIVE); OPIATES URINE NEGATIVE (NEGATIVE); PHENCYCLIDINE URINE NEGATIVE (NEGATIVE)
[2019-10-01 19:31] LABS: HCG, SERUM QUALITATIVE NEGATIVE (NEGATIVE)
[2019-10-01 19:39] LABS: ACETAMINOPHEN LEVEL < 2.0 UG/ML (10.0-30.0); ALBUMIN 3.8 GM/DL (3.2-5.2); ALT/SGPT 43 U/L (12-78); BILIRUBIN,DIRECT < 0.1 MG/DL (0.0-0.2); BILIRUBIN,TOTAL 0.2 MG/DL (0.2-1.0); BLOOD UREA NITROGEN 12 MG/DL (7-18); CARBON DIOXIDE LEVEL 31 MEQ/L (21-32); CHLORIDE LEVEL 103 MEQ/L (98-107); CREATININE FOR GFR 0.82 MG/DL (0.55-1.30); ETHYL ALCOHOL (ETHANOL) < 0.003 % (0.000-0.010); GLOMERULAR FILTRATION RATE > 60.0 (>60); GLUCOSE, FASTING 111 MG/DL (70-100); POTASSIUM SERUM 4.1 MEQ/L (3.5-5.1); SALICYLATE LEVEL < 1.7 MG/DL (5.0-30.0); SODIUM LEVEL 137 MEQ/L (136-145); TOTAL PROTEIN 7.7 GM/DL (6.4-8.2)
[2019-10-01] MEDS ORDERED: BENZTROPINE 0.5 MG TAB PO ONE (20:15)
[2019-10-01] MEDS ORDERED: OXcarbazepine 300 MG TAB PO ONE (20:15)
[2019-10-01] MEDS ORDERED: ARIPiprazole 10 MG TAB PO ONE (20:45)
[2019-10-01 21:11] VITALS: BP 136/81
== END 2019-10-01 21:14 | disposition home or self-care (01) ==
LOC: M ED 17:46
DX: Z60.9 Problem related to social environment, unspecified (principal); F25.9 Schizoaffective disorder, unspecified; F10.20 Alcohol dependence, uncomplicated; F84.0 Autistic disorder; Z91.5 Personal history of self-harm; Z88.0 Allergy status to penicillin; Z88.8 Allergy status to other drugs, medicaments and biological substances; Z91.048 Other nonmedicinal substance allergy status; Z79.899 Other long term (current) drug therapy; Z79.84 Long term (current) use of oral hypoglycemic drugs
CPT/HCPCS: 36415; 80048; 80076; 80307; 84443; 84703; 85027; 99284; G0480

== ENCOUNTER → 2019-10-15 | Outpatient (CLI) | payer MEDICAID ==
[2019-10-15 10:26] LABS: BASO # 0.1 10^3/uL (0.0-0.2); BASO % 0.6 % (0.0-1.0); EOS # 0.2 10^3/uL (0.0-0.5); EOS % 2.4 % (0.0-3.0); HEMATOCRIT 40.6 % (36.0-47.0); HEMOGLOBIN 13.1 g/dl (12.0-15.5); LYMPH # 1.1 10^3/uL (1.5-5.0); LYMPH % 13.5 % (24.0-44.0); MEAN CORPUSCULAR HEMOGLOBIN 27.9 pg (27.0-33.0); MEAN CORPUSCULAR HGB CONC 32.3 g/dl (32.0-36.5); MEAN CORPUSCULAR VOLUME 86.6 fl (80.0-96.0); MONO # 0.7 10^3/uL (0.0-0.8); MONO % 8.8 % (0.0-5.0); NEUTROPHILS # 6.3 10^3/uL (1.5-8.5); NEUTROPHILS % 74.2 % (36.0-66.0); PLATELET COUNT, AUTOMATED 252 10^3/uL (150-450); RED BLOOD COUNT 4.69 10^6/uL (4.00-5.40); WHITE BLOOD COUNT 8.5 10^3/uL (4.0-10.0)
[2019-10-15 10:51] LABS: ALBUMIN 3.5 GM/DL (3.2-5.2); ALT/SGPT 29 U/L (12-78); BILIRUBIN,TOTAL 0.3 MG/DL (0.2-1.0); BLOOD UREA NITROGEN 17 MG/DL (7-18); CALCIUM LEVEL 8.5 MG/DL (8.5-10.1); CARBON DIOXIDE LEVEL 25 MEQ/L (21-32); CHLORIDE LEVEL 103 MEQ/L (98-107); CHOLESTEROL LEVEL 248 MG/DL (<200); CHOLESTEROL RISK RATIO 4.769 (<5); CREATININE FOR GFR 0.75 MG/DL (0.55-1.30); GLOMERULAR FILTRATION RATE > 60.0 (>60); GLUCOSE, FASTING 105 MG/DL (70-100); HCG, SERUM QUANTITATIVE < 1.0 MIU/ML; HDL CHOLESTEROL 52 MG/DL (>40); LDL CHOLESTEROL 170 MG/DL (<100); NON-HDL-C 196 MG/DL; POTASSIUM SERUM 4.8 MEQ/L (3.5-5.1); SODIUM LEVEL 137 MEQ/L (136-145); TOTAL PROTEIN 7.2 GM/DL (6.4-8.2); TRIGLYCERIDES LEVEL 129 MG/DL (<150)
== END ==
LOC: M PLALAB 08:14
PROVIDERS: ATTEND Psychiatry & Neurology Child & Adolescent Psychiatry
DX: F31.9 Bipolar disorder, unspecified (principal); F84.0 Autistic disorder
CPT/HCPCS: 36415; 80053; 80061; 80183; 83036; 84439; 84443; 84702; 85025; G0480

== ENCOUNTER 2019-10-25 20:08 | Inpatient (IN) | payer MEDICAID ==
[~2019-10-25] VITALS: Ht 157.5 cm; Wt 95.6 kg
[~2019-10-25 20:08] MED LIST changes: -ARIP1TAB10; -METF500T13; +METF500T13 PO
[2019-10-25 20:45] LABS: HEMATOCRIT 40.9 % (36.0-47.0); HEMOGLOBIN 13.4 g/dl (12.0-15.5); MEAN CORPUSCULAR HGB CONC 32.8 g/dl (32.0-36.5); MEAN CORPUSCULAR VOLUME 82.5 fl (80.0-96.0); PLATELET COUNT, AUTOMATED 263 10^3/uL (150-450); RED BLOOD COUNT 4.96 10^6/uL (4.00-5.40); WHITE BLOOD COUNT 10.2 10^3/uL (4.0-10.0)
[2019-10-25 21:24] LABS: ALBUMIN 3.8 GM/DL (3.2-5.2); ALT/SGPT 34 U/L (12-78); BILIRUBIN,DIRECT < 0.1 MG/DL (0.0-0.2); BILIRUBIN,TOTAL 0.2 MG/DL (0.2-1.0); BLOOD UREA NITROGEN 13 MG/DL (7-18); CARBON DIOXIDE LEVEL 25 MEQ/L (21-32); CHLORIDE LEVEL 105 MEQ/L (98-107); CREATININE FOR GFR 0.72 MG/DL (0.55-1.30); ETHYL ALCOHOL (ETHANOL) 0.129 % (0.000-0.010); GLOMERULAR FILTRATION RATE > 60.0 (>60); GLUCOSE, FASTING 111 MG/DL (70-100); POTASSIUM SERUM 4.1 MEQ/L (3.5-5.1); SALICYLATE LEVEL 1.8 MG/DL (5.0-30.0); SODIUM LEVEL 138 MEQ/L (136-145); TOTAL PROTEIN 7.4 GM/DL (6.4-8.2)
[2019-10-25 21:25] LABS: ACETAMINOPHEN LEVEL < 2.0 UG/ML (10.0-30.0)
[2019-10-25 21:28] LABS: AMPHETAMINES LEVEL URINE NEGATIVE (NEGATIVE); BARBITURATES URINE NEGATIVE (NEGATIVE); BENZODIAZEPINES URINE NEGATIVE (NEGATIVE); CANNABINOIDS URINE NEGATIVE (NEGATIVE); COCAINE METABOLITE URINE NEGATIVE (NEGATIVE); METHADONE URINE NEGATIVE (NEGATIVE); OPIATES URINE NEGATIVE (NEGATIVE); PHENCYCLIDINE URINE NEGATIVE (NEGATIVE)
[2019-10-25] MEDS ORDERED: ACETAMINOPHEN TAB 650MG DOSE (2X325MG) PO ONE (21:30)
[2019-10-26] MEDS ORDERED: diphenhydrAMINE 25MG CAP PO ONE (00:15)
[2019-10-26] MEDS ORDERED: ARIP1TAB PO (05:45)
[2019-10-26] MEDS ORDERED: BENZ0.5T23 PO (06:37)
[2019-10-26] MEDS ORDERED: ARIPiprazole 10 MG TAB PO ONE (07:15)
[2019-10-26] MEDS ORDERED: CitaloPRAM (CeleXA) 20 MG TAB PO ONE (07:30)
[2019-10-26] MEDS ORDERED: PROPRANOLOL 60 MG LA CAP PO ONE (07:30)
[2019-10-26] MEDS ORDERED: metFORMIN (GLUCOPHAGE) 500 MG TAB PO ONE (07:30)
[2019-10-26] MEDS ORDERED: VITAMIN E 400 INTERNATIONAL UNITS CAP PO ONE (07:30)
[2019-10-26] MEDS ORDERED: OXcarbazepine 300 MG TAB PO ONE (07:30)
[2019-10-26] MEDS ORDERED: BENZTROPINE 0.5 MG TAB PO ONE (07:30)
[2019-10-26] MEDS ORDERED: PILL CUTTER 1 EACH XX ONE (07:39)
[2019-10-26] MEDS ORDERED: hydrOXYzine 25 MG TAB PO ONE (09:45)
[2019-10-26] MEDS ORDERED: MOM 30ML SUSPENSION UDC PO PRN (17:00)
[2019-10-26] MEDS ORDERED: ACETAMINOPHEN TAB 650MG DOSE (2X325MG) PO PRN (17:00)
[2019-10-26] MEDS ORDERED: MAALOX 30 ML SUSP *UDC PO PRN (17:00)
[2019-10-26 17:36] VITALS: BP 153/85
[2019-10-26] MEDS: OXcarbazepine 300 MG TAB PO SCH (21:47)
[2019-10-26] MEDS: ARIPiprazole 10 MG TAB PO SCH (21:47)
[2019-10-26] MEDS: traZODone 50 MG TAB PO PRN (22:14)
[2019-10-27] MEDS ORDERED: traZODone 50 MG TAB PO ONE (01:45)
[2019-10-27 06:53] VITALS: BP 119/58
[2019-10-27] MEDS: ARIPiprazole 15 MG TAB (AbiLIFY) PO SCH (08:34)
[2019-10-27] MEDS: CitaloPRAM (CeleXA) 20 MG TAB PO SCH (08:34)
[2019-10-27] MEDS: OXcarbazepine 300 MG TAB PO SCH ×2 (08:35→20:05)
[2019-10-27] MEDS: PROPRANOLOL 60 MG LA CAP PO SCH (08:35)
--- NOTE | 2019-10-27 08:50 | ECGEPIP ---
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
--- NOTE | 2019-10-27 09:13 | MHHPEPDOC ---
[facility] History & Physical History and Physical DATE OF ADMISSION: October 26, 2019 at 17:15 New Patient Grace Watson MRN: N/A Date of : N/A Date of Service: 10/27/2019 Chief Complaint "I am suicidal right." History of Present Illness The patient is a well-known 34-year-old woman with a history of autism and alcoholism, presents after reportedly getting into an argument while drunk and threatening to kill herself. The patient reports that she is suicidal and depressed due to various losses in her family as well as difficulties in her family. She reports that she's had difficulty with low mood and drinking. She generally has little ability to relate and is fixated on multiple topics as is her normal. The patient reports no major changes in her social life other than the of her grandmother which was several months ago, and she reports no major changes in symptoms other than the depressed mood and anxiousness relate to her psychosocial stressors as elaborated above. Review Of Systems Depression: As above. Anxiety: As above. Dora: No changes. Psychotic: No changes. Trauma: No changes. Borderline: No changes. Past Psychiatric History Has a history of autism. Currently on Abilify, Celexa and a number of other medications treated. [facility] by Dr. Sharma. Reports history of suicide attempts, difficult to verify any attempts. Last admitted several months ago. Allergies Please see below. Family Psychiatric History The patient denies/is unaware any history of mental health history including addictions and suicide. Social History "Childhood: born and raised [place], [place]. 2 parent home, 1 younger brother Abuse/Trauma: denies Current Living Situation: lives with parents Education: high school edu, was in special education for Brain spectrum disorder Employment: unemployed, on Medicaid and SSI. 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 Social Support: parents" From previous assessment Substance Abuse History Has an extensive history of alcohol use. No tobacco, cannabis or other illicit drug use. Medical History Patient has no significant past medical history. Mental Status Examination General: Well dressed with good hygiene Speech: Spontaneous and fluid Thought processes: Linear and logical MSK: Smooth and coordinated gait, no signs of tremors or involuntary orofacial movements Thought content: Repetitive, chronic Abstract reasoning, and computation: Intact Description of associations: Chronic loosening secondary to the autism Description of abnormal or psychotic thoughts: Admits to suicidal thoughts Judgment: Limited Insight: Limited Orientation: Alert and orientated 3 Cognition: Grossly normal Recent and remote memory: Intact Attention span and concentration: Intact Fund of knowledge: Adequate Mood: "okay" Affect: Flat with fluid reactivity. Diagnoses Unspecified depressive disorder Autism spectrum disorder Alcohol use disorder, severe Assessment and Plan Unspecified depressive disorder: Continue Celexa. At this time, will discuss options for lethality. Autism spectrum disorder: Continue Abilify, monitor for behavioral problems. Alcohol use disorder: Continue CIWA protocol. Disposition Patient will be retained on an involuntary as she reports she is still suicidal. She has a history of multiple admissions and will likely need more intensive treatment in order to reduce the chances of suicide and readmission. Problem List 1. Risk for suicide. 2. Substance use. 3. Ineffective coping. Initial Treatment Plan 1. Patient was admitted on a 9.39 legal status. 2. Complete history was obtained. 3. With patients permission, family will be contacted and database will be expanded. 4. Patients medication regimen will be reviewed and changed accordingly. 5. Patient will be provided with protected environment. 6. Patient will be treated with individual, group, and milieu therapies. 7. Patient will receive supportive psych-education. 8. Discharge planning will commence immediately. 9. Outpatient follow-up treatment will be strongly recommended. 10. The initial treatment plan will focus initially on: Estimated Length Of Stay 4 days. Time Spent 70 minutes with greater than 50% spent on counseling/coordination of care. Friday Vital Signs Vital Signs Date Time Temp Pulse Resp B/P (MAP) Pulse Ox O2 Delivery O2 Flow Rate FiO2 10/27/19 08:35 63 119/58 10/27/19 06:53 98.1 12 10/26/19 17:36 Room Air 10/26/19 16:26 97 Medications Scheduled Aripiprazole (Aripiprazole) 15 Mg Tablet, 15 MG PO DAILY, (Reported) Aripiprazole (Aripiprazole) 10 Mg Tablet, 10 MG PO QHS, (Reported) Benztropine Mesylate (Benztropine Mesylate) 0.5 Mg Tablet, 0.5 MG PO DAILY, (Reported) Benztropine Mesylate (Benztropine Mesylate) 0.5 Mg Tablet, 0.5 MG PO Q2D, (Reported) QHS Calcium Carbonate/Vitamin D3 (Calcium 600-Vit D3 800 Tablet) 1 Each Tablet, 1 TAB PO DAILY, (Reported) Citalopram Hydrobromide (Celexa) 20 Mg Tablet, 20 MG PO DAILY, (Reported) Metformin HCl (Metformin HCl) 500 Mg Tablet, 500 MG PO DAILY, (Reported) Oxcarbazepine (Oxcarbazepine) 300 Mg Tablet, 300 MG PO DAILY, (Reported) Oxcarbazepine (Oxcarbazepine) 600 Mg Tablet, 600 MG PO QHS, (Reported) Propranolol HCl (Propranolol HCl ER) 60 Mg Cap.sa.24h, 60 MG PO QAM, (Reported) Vitamin E (Dl,Tocopheryl Acet) (Vitamin E) 400 Unit Capsule, 400 UNIT PO DAILY, (Reported) Scheduled PRN Hydroxyzine Pamoate (Hydroxyzine Pamoate) 25 Mg Capsule, 25 MG PO BID PRN for ANXIETY/AGITATION, (Reported) Melatonin (Melatonin) 3 Mg Tablet, 3 MG PO QHS PRN for SLEEP, (Reported) Allergies Coded Allergies: cariprazine (Verified Allergy, Intermediate, increased SI, 10/01/19) Penicillins (Verified Allergy, Mild, rash, 10/01/19) hydroxyzine (Verified Allergy, Mild, ITCH/RASH , 10/01/19) CAN TAKE HYDROXYZINE PAMOATE risperidone (Verified Allergy, Mild, RASH, 10/01/19) prednisone (Verified Adverse Reaction, Intermediate, anxiety, agitation, 1 07/17/18) quetiapine (Verified Adverse Reaction, Intermediate, OCULOGYRIC CRISIS, 05/17/19) Uncoded Allergies: FRANCISCO LOPEZ (Allergy, Intermediate, RASH, 05/17/19) BIGG PATEL DO October 27, 2019 09:13
--- NOTE | 2019-10-27 11:00 | HPEPDOC ---
General Date of Admission October 26, 2019 at 17:15 Date of Service: October 27, 2019 Chief Complaint The patient is a 34-year-old female Who presented to the hospital after attempting suicide History of Present Illness Patient is a 34-year-old female with a PMHx Suicidal ideation / Suicidal attempt (Cutting / Stabbing) / Autism spectrum / Schizoaffective disorder / OCD, Depression / Anxiety, DM2, Hx of alcohol abuse who presented to the hospital after she had attempted suicide while at home. Patient reported that she had drank several small bottles of liquor and was intoxicated when she attempted to threaten her life with a serrated knife. Police were contacted and patient is brought to the emergency room for further evaluation. Patient was admitted to the inpatient mental health unit under the care of psychiatry. Hospitalist service was consulted for medical screening evaluation. Currently, patient denies issues of breath, cough, palpitations, nausea, vomiting, abdominal pain, constipation, diarrhea, or urinary discomfort. Patient is unaware of any fevers, chills over the last several days. Patient reports that her appetite has been poor, but she does report significant increase in her weight since the age of 26. Home Medications Scheduled Aripiprazole (Aripiprazole) 15 Mg Tablet, 15 MG PO DAILY, (Reported) Aripiprazole (Aripiprazole) 10 Mg Tablet, 10 MG PO QHS, (Reported) Benztropine Mesylate (Benztropine Mesylate) 0.5 Mg Tablet, 0.5 MG PO DAILY, (Reported) Benztropine Mesylate (Benztropine Mesylate) 0.5 Mg Tablet, 0.5 MG PO Q2D, (Reported) QHS Calcium Carbonate/Vitamin D3 (Calcium 600-Vit D3 800 Tablet) 1 Each Tablet, 1 TAB PO DAILY, (Reported) Citalopram Hydrobromide (Celexa) 20 Mg Tablet, 20 MG PO DAILY, (Reported) Metformin HCl (Metformin HCl) 500 Mg Tablet, 500 MG PO DAILY, (Reported) Oxcarbazepine (Oxcarbazepine) 300 Mg Tablet, 300 MG PO DAILY, (Reported) Oxcarbazepine (Oxcarbazepine) 600 Mg Tablet, 600 MG PO QHS, (Reported) Propranolol HCl (Propranolol HCl ER) 60 Mg Cap.sa.24h, 60 MG PO QAM, (Reported) Vitamin E (Dl,Tocopheryl Acet) (Vitamin E) 400 Unit Capsule, 400 UNIT PO DAILY, (Reported) Scheduled PRN Hydroxyzine Pamoate (Hydroxyzine Pamoate) 25 Mg Capsule, 25 MG PO BID PRN for ANXIETY/AGITATION, (Reported) Melatonin (Melatonin) 3 Mg Tablet, 3 MG PO QHS PRN for SLEEP, (Reported) Allergies Coded Allergies: cariprazine (Verified Allergy, Intermediate, increased SI, 10/01/19) Penicillins (Verified Allergy, Mild, rash, 10/01/19) hydroxyzine (Verified Allergy, Mild, ITCH/RASH , 10/01/19) CAN TAKE HYDROXYZINE PAMOATE risperidone (Verified Allergy, Mild, RASH, 10/01/19) prednisone (Verified Adverse Reaction, Intermediate, anxiety, agitation, 05/17/19) quetiapine (Verified Adverse Reaction, Intermediate, OCULOGYRIC CRISIS, 05/17/19) Uncoded Allergies: FRANCISCO DEODORANT (Allergy, Intermediate, RASH, 05/17/19) Past Medical History Medical History Suicidal ideation / Suicidal attempt (Cutting / Stabbing) / Autism spectrum / Schizoaffective disorder / OCD, Depression / Anxiety, DM2, Hx of alcohol abuse Surgical History For wisdom teeth extraction (age 19) Family History - Mother with history of asthma - Father with history of diabetes Social History - Denies the use of tobacco or illicit drugs; patient tested drinking recently and being intoxicated reported. 7. Small bottles of liquor - Denies recent travel or sick contacts - Lives with mother and father - Occupation; patient is currently on disability Review of Systems Other systems 10 point review of systems complete, all negative otherwise stated in HPI Vital Signs - Vitals: BP 119/58, HR 63, RR 12, Sat 97%RA, Temp 98.1F - General: Lying in bed, No acute distress, AAOx3 - HEENT: NC, AT, PERRLA, EOMI - CVS: RRR, +S1S2 - Lungs: Fair air entry bilaterally, No appreciable wheezing / rales / rhonchi - Abdomen: Soft, Non-distended, Non-tender - Extremities: No lower extremity edema, No calf tenderness - Neuro: No focal motor or sensory deficit - Skin: No visible rashes Plan / VTE VTE Prophylaxis Ordered?: Yes Plan Plan Suicidal ideation / Suicidal attempt (Cutting / Stabbing) - Patient reported trying to harm herself with cutting / stabbing - Currently being managed by psychiatry Autism spectrum / schizoaffective disorder / OCD / Depression / Anxiety - Currently being managed by psychiatry DM2 - Will resume Metformin Hx of alcohol abuse - Will start Thiamine / Folate / Multivitamins DVT prophylaxis - c/w early ambulation 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
[2019-10-27] MEDS: metFORMIN (GLUCOPHAGE) 500 MG TAB PO SCH (11:49)
[2019-10-27] MEDS: THIAMINE 100 MG TAB PO SCH (11:49)
[2019-10-27] MEDS: FOLIC ACID 1 MG TAB PO SCH (11:49)
[2019-10-27] MEDS: MULTIVITAMINS/MINERALS THERAP 1 TAB PO SCH (11:49)
[2019-10-27 15:49] VITALS: BP 135/81
[2019-10-27] MEDS: ARIPiprazole 10 MG TAB PO SCH (20:05)
[2019-10-27] MEDS: traZODone 50 MG TAB PO PRN (22:13)
[2019-10-28 06:12] VITALS: BP 129/77
[2019-10-28] MEDS: ARIPiprazole 15 MG TAB (AbiLIFY) PO SCH (09:08)
[2019-10-28] MEDS: PROPRANOLOL 60 MG LA CAP PO SCH (09:08)
[2019-10-28] MEDS: CitaloPRAM (CeleXA) 20 MG TAB PO SCH (09:08)
[2019-10-28] MEDS: MULTIVITAMINS/MINERALS THERAP 1 TAB PO SCH (09:08)
[2019-10-28] MEDS: THIAMINE 100 MG TAB PO SCH (09:08)
[2019-10-28] MEDS: OXcarbazepine 300 MG TAB PO SCH ×2 (09:08→20:28)
[2019-10-28] MEDS: metFORMIN (GLUCOPHAGE) 500 MG TAB PO SCH (09:08)
[2019-10-28] MEDS: FOLIC ACID 1 MG TAB PO SCH (09:08)
--- NOTE | 2019-10-28 09:33 | MHIPNPDOC ---
[facility] Progress Note Progress Note Inpatient Progress Note Grace Watson MRN: N/A Date of : N/A Date of Service: 10/28/2019 History of Present Illness The patient is a well-known 34-year-old woman with a history of autism and alcoholism, presents after reportedly getting into an argument while drunk and threatening to kill herself. The patient reports that she is suicidal and depressed due to various losses in her family as well as difficulties in her family. She reports that she's had difficulty with low mood and drinking. She generally has little ability to relate and is fixated on multiple topics as is her normal. The patient reports no major changes in her social life other than the of her grandmother which was several months ago, and she reports no major changes in symptoms other than the depressed mood and anxiousness relate to her psychosocial stressors as elaborated above. Interval History The patient is met with today. She elects to try lithium. She has various questions about TLS after discussion about potential treatments. She reports she still feels depressed and suicidal with no variation. No behavioral problems overnight and generally is amenable to staff interventions. Review Of Systems Denies any specific physical side effects. Psychotherapy None on this visit. Vital Signs Reviewed. Mental Status Examination General: Well dressed with good hygiene Speech: Spontaneous and fluid Thought processes: Linear and logical MSK: Smooth and coordinated gait, no signs of tremors or involuntary orofacial movements Thought content: Repetitive, chronic Abstract reasoning, and computation: Intact Description of associations: Chronic loosening secondary to the autism Description of abnormal or psychotic thoughts: Admits to suicidal thoughts Judgment: Limited Insight: Limited Orientation: Alert and orientated 3 Cognition: Grossly normal Recent and remote memory: Intact Attention span and concentration: Intact Fund of knowledge: Adequate Mood: "okay" Affect: Flat with fluid reactivity. Diagnoses Unspecified depressive disorder. Autism spectrum disorder. Alcohol use disorder, severe. Assessment and Plan Unspecified depressive disorder: Will continue Celexa, start lithium 150 mg BID. Discused risks, benefits and potential options with patient extensively. Autism spectrum disorder: Continue Abilify, monitor for behavioral problems. Alcohol use disorder: Continue CIWA protocol. Disposition Patient will need a further inpatient admission due to her suicidality, likely she will need supportive housing options to reduce her chance of readmission. Time Spent 15 minutes Vital Signs Vital Signs Date Time Temp Pulse Resp B/P (MAP) Pulse Ox O2 Delivery O2 Flow Rate FiO2 10/28/19 06:12 98.5 14 129/77 (94) Room Air 10/27/19 15:49 18 10/26/19 16:26 97 Current Medications Current Medications Medications (Trade) Dose Ordered Sig/Cory Route PRN Reason Start Time Stop Time Status Last Admin Dose Admin Acetaminophen (Tylenol Tab) 650 mg Q6HP PRN PO HEADACHE or DISCOMFORT 10/26/19 17:00 Al Hydrox/Mg Hydrox/Simethicone (Mylanta) 30 ml Q4HP PRN PO HEARTBURN/INDIGESTION 10/26/19 17:00 Aripiprazole (AbiLIFY) 10 mg QHS PO 10/26/19 21:00 10/27/19 20:05 Aripiprazole (AbiLIFY) 15 mg DAILY PO 10/27/19 09:00 10/28/19 09:08 Citalopram Hydrobromide (CeleXA) 20 mg DAILY PO 10/27/19 09:00 10/28/19 09:08 Folic Acid (Folic Acid) 1 mg DAILY PO 10/27/19 09:00 10/28/19 09:08 Home Med (Med Rec Complete!) ASDIRECTED XX 10/26/19 06:45 10/26/19 06:41 DC Magnesium Hydroxide (Milk Of Magnesia) 30 ml DAILYPRN PRN PO CONSTIPATION 10/26/19 17:00 Metformin HCl (Glucophage) 500 mg DAILY@0800 PO 10/27/19 08:00 10/28/19 09:08 Multivitamins (Theragram-M) 1 tab DAILY PO 10/27/19 09:00 10/28/19 09:08 Oxcarbazepine (Trileptal) 300 mg QAM PO 10/27/19 09:00 10/28/19 09:08 Oxcarbazepine (Trileptal) 600 mg QHS PO 10/26/19 21:00 10/27/19 20:05 Propranolol HCl (Inderal La) 60 mg DAILY PO 10/27/19 09:00 10/28/19 09:08 Thiamine HCl (Thiamine HCl) 100 mg DAILY PO 10/27/19 09:00 10/28/19 09:08 Trazodone HCl (Desyrel) 50 mg QHSP PRN PO INSOMNIA 10/26/19 17:00 10/27/19 22:13 Allergies Coded Allergies: cariprazine (Verified Allergy, Intermediate, increased SI, 10/01/19) Penicillins (Verified Allergy, Mild, rash, 10/01/19) hydroxyzine (Verified Allergy, Mild, ITCH/RASH , 10/01/19) CAN TAKE HYDROXYZINE PAMOATE risperidone (Verified Allergy, Mild, RASH, 10/01/19) prednisone (Verified Adverse Reaction, Intermediate, anxiety, agitation, 05/17/19) quetiapine (Verified Adverse Reaction, Intermediate, OCULOGYRIC CRISIS, 05/17/19) Uncoded Allergies: FRANCISCO DEODORANT (Allergy, Intermediate, RASH, 05/17/19) BIGG PATEL DO October 28, 2019 09:33
[2019-10-28] MEDS: LITHIUM CARBONATE 150 MG CAP PO SCH ×2 (11:53→20:28)
[2019-10-28 16:05] VITALS: BP 138/50
[2019-10-28] MEDS: ARIPiprazole 10 MG TAB PO SCH (20:28)
[2019-10-28] MEDS: traZODone 50 MG TAB PO PRN (22:09)
[2019-10-29 06:09] VITALS: BP 131/76
[2019-10-29] MEDS: MULTIVITAMINS/MINERALS THERAP 1 TAB PO SCH (09:07)
[2019-10-29] MEDS: ARIPiprazole 15 MG TAB (AbiLIFY) PO SCH (09:07)
[2019-10-29] MEDS: CitaloPRAM (CeleXA) 20 MG TAB PO SCH (09:07)
[2019-10-29] MEDS: PROPRANOLOL 60 MG LA CAP PO SCH (09:07)
[2019-10-29] MEDS: metFORMIN (GLUCOPHAGE) 500 MG TAB PO SCH (09:07)
[2019-10-29] MEDS: THIAMINE 100 MG TAB PO SCH (09:07)
[2019-10-29] MEDS: OXcarbazepine 300 MG TAB PO SCH ×2 (09:07→21:47)
[2019-10-29] MEDS: FOLIC ACID 1 MG TAB PO SCH (09:07)
[2019-10-29] MEDS: LITHIUM CARBONATE 150 MG CAP PO SCH ×2 (09:08→21:47)
--- NOTE | 2019-10-29 09:58 | MHIPNPDOC ---
[facility] Progress Note Progress Note Inpatient Progress Note Grace Watson MRN: N/A Date of : N/A Date of Service: 10/29/2019 History of Present Illness The patient is a well-known 34-year-old woman with a history of autism and alcoholism, presents after reportedly getting into an argument while drunk and threatening to kill herself. The patient reports that she is suicidal and depressed due to various losses in her family as well as difficulties in her family. She reports that she's had difficulty with low mood and drinking. She generally has little ability to relate and is fixated on multiple topics as is her normal. The patient reports no major changes in her social life other than the of her grandmother which was several months ago, and she reports no major changes in symptoms other than the depressed mood and anxiousness relate to her psychosocial stressors as elaborated above. Interval History The patient is met with today. She still reports feeling depressed and suicidal. She still reports feeling "bad." She has had difficulty with continuous suicidal thoughts. She reports no adverse effects from her medications. Generally, has been engaging in care fixated on TLS at this time. Review Of Systems General: Denies fever or appetite changes Cardiovascular: Denies Chest pain or palpations GI: Denies Nausea, vomiting, or bowel changes Respiratory: Denies shortness of breath or cough Neuro: Denies dizziness, tremors Derm: Denies any rashes or pruritus : Denies any dysuria or urinary problems MSK: Denies any muscle tightness or stiffness HEENT: Denies any vision changes or headaches Psychotherapy None on this visit. Vital Signs Reviewed. Mental Status Examination General: Well dressed with good hygiene Speech: Spontaneous and fluid Thought processes: Linear and logical MSK: Smooth and coordinated gait, no signs of tremors or involuntary orofacial movements Thought content: Repetitive, chronic Abstract reasoning, and computation: Intact Description of associations: Chronic loosening secondary to the autism Description of abnormal or psychotic thoughts: Admits to suicidal thoughts Judgment: Limited Insight: Limited Orientation: Alert and orientated 3 Cognition: Grossly normal Recent and remote memory: Intact Attention span and concentration: Intact Fund of knowledge: Adequate Mood: "okay" Affect: Flat with little reactivity. Diagnoses Unspecified depressive disorder. Autism spectrum disorder. Alcohol use disorder, severe. Assessment and Plan Unspecified depressive disorder: Continue Celexa, continue lithium 150 mg BID. Autism spectrum disorder: Continue Abilify, monitor for behavioral problems. Alcohol use disorder: Continue CIWA protocol. Disposition Patient will need further inpatient admission due to suicidal thoughts and severe depression. Time Spent 15 minutes. Friday Vital Signs Vital Signs Date Time Temp Pulse Resp B/P (MAP) Pulse Ox O2 Delivery O2 Flow Rate FiO2 10/29/19 09:07 79 135/78 10/29/19 06:09 97.6 12 97 Room Air Current Medications Current Medications Medications (Trade) Dose Ordered Sig/Cory Route PRN Reason Start Time Stop Time Status Last Admin Dose Admin Acetaminophen (Tylenol Tab) 650 mg Q6HP PRN PO HEADACHE or DISCOMFORT 10/26/19 17:00 Al Hydrox/Mg Hydrox/Simethicone (Mylanta) 30 ml Q4HP PRN PO HEARTBURN/INDIGESTION 10/26/19 17:00 Aripiprazole (AbiLIFY) 10 mg QHS PO 10/26/19 21:00 10/28/19 20:28 Aripiprazole (AbiLIFY) 15 mg DAILY PO 10/27/19 09:00 10/29/19 09:07 Citalopram Hydrobromide (CeleXA) 20 mg DAILY PO 10/27/19 09:00 10/29/19 09:07 Folic Acid (Folic Acid) 1 mg DAILY PO 10/27/19 09:00 10/29/19 09:07 Home Med (Med Rec Complete!) ASDIRECTED XX 10/26/19 06:45 10/26/19 06:41 DC [place] Carbonate ([place] Carbonate) 150 mg BID PO 10/28/19 11:00 10/29/19 09:08 Magnesium Hydroxide (Milk Of Magnesia) 30 ml DAILYPRN PRN PO CONSTIPATION 10/26/19 17:00 Metformin HCl (Glucophage) 500 mg DAILY@0800 PO 10/27/19 08:00 10/29/19 09:07 Multivitamins (Theragram-M) 1 tab DAILY PO 10/27/19 09:00 10/29/19 09:07 Oxcarbazepine (Trileptal) 300 mg QAM PO 10/27/19 09:00 10/29/19 09:07 Oxcarbazepine (Trileptal) 600 mg QHS PO 10/26/19 21:00 10/28/19 20:28 Propranolol HCl (Inderal La) 60 mg DAILY PO 10/27/19 09:00 10/29/19 09:07 Thiamine HCl (Thiamine HCl) 100 mg DAILY PO 10/27/19 09:00 10/29/19 09:07 Trazodone HCl (Desyrel) 50 mg QHSP PRN PO INSOMNIA 10/26/19 17:00 10/28/19 22:09 Allergies Coded Allergies: cariprazine (Verified Allergy, Intermediate, increased SI, 10/01/19) Penicillins (Verified Allergy, Mild, rash, 10/01/19) hydroxyzine (Verified Allergy, Mild, ITCH/RASH , 10/01/19) CAN TAKE HYDROXYZINE PAMOATE risperidone (Verified Allergy, Mild, RASH, 10/01/19) prednisone (Verified Adverse Reaction, Intermediate, anxiety, agitation, 05/17/19) quetiapine (Verified Adverse Reaction, Intermediate, OCULOGYRIC CRISIS, 05/17/19) Uncoded Allergies: FRANCISCO DEODORANT (Allergy, Intermediate, RASH, 05/17/19) BIGG PATEL DO October 29, 2019 09:58
[2019-10-29] MEDS: ARIPiprazole 10 MG TAB PO SCH (21:47)
[2019-10-30 06:40] VITALS: BP 108/57
[2019-10-30] MEDS: MULTIVITAMINS/MINERALS THERAP 1 TAB PO SCH (08:34)
[2019-10-30] MEDS: ARIPiprazole 15 MG TAB (AbiLIFY) PO SCH (08:34)
[2019-10-30] MEDS: THIAMINE 100 MG TAB PO SCH (08:34)
[2019-10-30] MEDS: OXcarbazepine 300 MG TAB PO SCH ×2 (08:35→21:55)
[2019-10-30] MEDS: metFORMIN (GLUCOPHAGE) 500 MG TAB PO SCH (08:35)
[2019-10-30] MEDS: LITHIUM CARBONATE 150 MG CAP PO SCH (08:35)
[2019-10-30] MEDS: FOLIC ACID 1 MG TAB PO SCH (08:35)
[2019-10-30] MEDS: CitaloPRAM (CeleXA) 20 MG TAB PO SCH (08:35)
[2019-10-30] MEDS: PROPRANOLOL 60 MG LA CAP PO SCH (08:35)
--- NOTE | 2019-10-30 11:52 | MHIPNPDOC ---
[facility] Progress Note Progress Note Inpatient Progress Note Grace Watson MRN: N/A Date of : N/A Date of Service: 10/30/2019 History of Present Illness The patient is a well-known 34-year-old woman with a history of autism and alcoholism, presents after reportedly getting into an argument while drunk and threatening to kill herself. The patient reports that she is suicidal and depressed due to various losses in her family as well as difficulties in her family. She reports that she's had difficulty with low mood and drinking. She generally has little ability to relate and is fixated on multiple topics as is her normal. The patient reports no major changes in her social life other than the of her grandmother which was several months ago, and she reports no major changes in symptoms other than the depressed mood and anxiousness relate to her psychosocial stressors as elaborated above. Interval History The patient is seen today. She continues to state that she is depressed, hopeless and has suicidal thoughts. She continues to report fatigue and general disinterest. She continues to fixate on TLS and generally asked multiple different question throughout the interview. Review Of Systems General: Denies fever or appetite changes Cardiovascular: Denies Chest pain or palpations GI: Denies Nausea, vomiting, or bowel changes Respiratory: Denies shortness of breath or cough Neuro: Denies dizziness, tremors Derm: Denies any rashes or pruritus MSK: Denies any muscle tightness or stiffness HEENT: Denies any vision changes or headaches Psychotherapy None on this visit. Vital Signs Reviewed. Mental Status Examination General: Well dressed with good hygiene Speech: Spontaneous and fluid Thought processes: Linear and logical MSK: Smooth and coordinated gait, no signs of tremors or involuntary orofacial movements Thought content: Repetitive, chronic Abstract reasoning, and computation: Intact Description of associations: Chronic loosening secondary to the autism Description of abnormal or psychotic thoughts: Admits to suicidal thoughts Judgment: Limited Insight: Limited Orientation: Alert and orientated 3 Cognition: Grossly normal Recent and remote memory: Intact Attention span and concentration: Intact Fund of knowledge: Adequate Mood: "okay" Affect: Flat with little reactivity. Diagnoses Unspecified depressive disorder. Autism spectrum disorder. Alcohol use disorder, severe. Assessment and Plan Unspecified depressive disorder: Continue Celexa and increase lithium to 300 mg BID. [place] level tomorrow. Autism spectrum disorder: Continue Abilify, monitor for behavioral problems. Alcohol use disorder: Continue [facility] protocol. Disposition Patient will need further inpatient admission due to suicidal thoughts and severe depression. Time Spent 15 minutes. Friday Vital Signs Vital Signs Date Time Temp Pulse Resp B/P (MAP) Pulse Ox O2 Delivery O2 Flow Rate FiO2 10/30/19 08:35 76 147/75 10/30/19 06:40 97.5 12 10/29/19 06:09 97 Room Air Current Medications Current Medications Medications (Trade) Dose Ordered Sig/Cory Route PRN Reason Start Time Stop Time Status Last Admin Dose Admin Acetaminophen (Tylenol Tab) 650 mg Q6HP PRN PO HEADACHE or DISCOMFORT 10/26/19 17:00 Al Hydrox/Mg Hydrox/Simethicone (Mylanta) 30 ml Q4HP PRN PO HEARTBURN/INDIGESTION 10/26/19 17:00 Aripiprazole (AbiLIFY) 10 mg QHS PO 10/26/19 21:00 10/29/19 21:47 Aripiprazole (AbiLIFY) 15 mg DAILY PO 10/27/19 09:00 10/30/19 08:34 Citalopram Hydrobromide (CeleXA) 20 mg DAILY PO 10/27/19 09:00 10/30/19 08:35 Folic Acid (Folic Acid) 1 mg DAILY PO 10/27/19 09:00 10/30/19 08:35 Home Med (Med Rec Complete!) ASDIRECTED XX 10/26/19 06:45 10/26/19 06:41 DC [place] Carbonate ([place] Carbonate) 150 mg BID PO 10/28/19 11:00 10/30/19 08:35 Magnesium Hydroxide (Milk Of Magnesia) 30 ml DAILYPRN PRN PO CONSTIPATION 10/26/19 17:00 Metformin HCl (Glucophage) 500 mg DAILY@0800 PO 10/27/19 08:00 10/30/19 08:35 Multivitamins (Theragram-M) 1 tab DAILY PO 10/27/19 09:00 10/30/19 08:34 Oxcarbazepine (Trileptal) 300 mg QAM PO 10/27/19 09:00 10/30/19 08:35 Oxcarbazepine (Trileptal) 600 mg QHS PO 10/26/19 21:00 10/29/19 21:47 Propranolol HCl (Inderal La) 60 mg DAILY PO 10/27/19 09:00 10/30/19 08:35 Thiamine HCl (Thiamine HCl) 100 mg DAILY PO 10/27/19 09:00 10/30/19 08:34 Trazodone HCl (Desyrel) 50 mg QHSP PRN PO INSOMNIA 10/26/19 17:00 10/28/19 22:09 Allergies Coded Allergies: cariprazine (Verified Allergy, Intermediate, increased SI, 10/01/19) Penicillins (Verified Allergy, Mild, rash, 10/01/19) hydroxyzine (Verified Allergy, Mild, ITCH/RASH , 10/01/19) CAN TAKE HYDROXYZINE PAMOATE risperidone (Verified Allergy, Mild, RASH, 10/01/19) prednisone (Verified Adverse Reaction, Intermediate, anxiety, agitation, 05/17/19) quetiapine (Verified Adverse Reaction, Intermediate, OCULOGYRIC CRISIS, 05/17/19) Uncoded Allergies: FRANCISCO DEODORANT (Allergy, Intermediate, RASH, 05/17/19) BIGG PATEL DO October 30, 2019 11:52
[2019-10-30 16:18] VITALS: BP 131/63
[2019-10-30] MEDS: ARIPiprazole 10 MG TAB PO SCH (21:55)
[2019-10-30] MEDS: LITHIUM CARBONATE 300 MG CAP PO SCH (21:56)
[2019-10-31 06:23] VITALS: BP 118/55
[2019-10-31] MEDS: metFORMIN (GLUCOPHAGE) 500 MG TAB PO SCH (08:48)
[2019-10-31] MEDS: LITHIUM CARBONATE 300 MG CAP PO SCH ×2 (08:48→21:26)
[2019-10-31] MEDS: MULTIVITAMINS/MINERALS THERAP 1 TAB PO SCH (08:48)
[2019-10-31] MEDS: ARIPiprazole 15 MG TAB (AbiLIFY) PO SCH (08:48)
[2019-10-31] MEDS: CitaloPRAM (CeleXA) 20 MG TAB PO SCH (08:48)
[2019-10-31] MEDS: FOLIC ACID 1 MG TAB PO SCH (08:48)
[2019-10-31] MEDS: THIAMINE 100 MG TAB PO SCH (08:48)
[2019-10-31] MEDS: OXcarbazepine 300 MG TAB PO SCH ×2 (08:49→21:26)
[2019-10-31] MEDS: PROPRANOLOL 60 MG LA CAP PO SCH (08:56)
[2019-10-31 15:36] VITALS: BP 114/56
[2019-10-31] MEDS: ARIPiprazole 10 MG TAB PO SCH (21:26)
[2019-11-01 06:34] VITALS: BP 116/53
[2019-11-01] MEDS: metFORMIN (GLUCOPHAGE) 500 MG TAB PO SCH (07:48)
[2019-11-01] MEDS: CitaloPRAM (CeleXA) 20 MG TAB PO SCH (08:45)
[2019-11-01] MEDS: LITHIUM CARBONATE 300 MG CAP PO SCH (08:45)
[2019-11-01] MEDS: OXcarbazepine 300 MG TAB PO SCH ×2 (08:45→20:48)
[2019-11-01] MEDS: MULTIVITAMINS/MINERALS THERAP 1 TAB PO SCH (08:45)
[2019-11-01] MEDS: FOLIC ACID 1 MG TAB PO SCH (08:45)
[2019-11-01] MEDS: THIAMINE 100 MG TAB PO SCH (08:46)
[2019-11-01] MEDS: ARIPiprazole 15 MG TAB (AbiLIFY) PO SCH (08:46)
[2019-11-01] MEDS: PROPRANOLOL 60 MG LA CAP PO SCH (08:46)
--- NOTE | 2019-11-01 09:52 | MHIPNPDOC ---
[facility] Progress Note Progress Note Inpatient Progress Note Grace Watson MRN: N/A Date of : N/A Date of Service: 11/01/2019 History of Present Illness The patient is a well-known 34-year-old woman with a history of autism and alcoholism, presents after reportedly getting into an argument while drunk and threatening to kill herself. The patient reports that she is suicidal and depressed due to various losses in her family as well as difficulties in her family. She reports that she's had difficulty with low mood and drinking. She generally has little ability to relate and is fixated on multiple topics as is her normal. The patient reports no major changes in her social life other than the of her grandmother which was several months ago, and she reports no major changes in symptoms other than the depressed mood and anxiousness relate to her psychosocial stressors as elaborated above. Interval History The patient has met with today. She reports she is feeling better and more hopeful. She reports she feels the lithium is helping reduce her suicidal thoughts and she reports feeling much more engaged. She reports generally she is doing better and using coping skills when she needs to. She had no major behavioral problems, although nurses note that she does have a lack of empathy consistent with her autism. Review Of Systems General: Denies fever or appetite changes Cardiovascular: Denies Chest pain or palpations GI: Denies Nausea, vomiting, or bowel changes Respiratory: Denies shortness of breath or cough Neuro: Denies dizziness, tremors Derm: Denies any rashes or pruritus : Denies any dysuria or urinary problems MSK: Denies any muscle tightness or stiffness HEENT: Denies any vision changes or headaches Psychotherapy None on this visit. Vital Signs Reviewed. Mental Status Examination General: Well dressed with good hygiene Speech: Spontaneous and fluid Thought processes: Linear and logical MSK: Smooth and coordinated gait, no signs of tremors or involuntary orofacial movements Thought content: Repetitive, chronic Abstract reasoning, and computation: Intact Description of associations: Chronic loosening secondary to the autism Description of abnormal or psychotic thoughts: Denies any suicidal thoughts or homicidal thoughts. At this time reports reduced auditory hallucinations. Judgment: Limited Insight: Limited Orientation: Alert and orientated 3 Cognition: Grossly normal Recent and remote memory: Intact Attention span and concentration: Intact Fund of knowledge: Adequate Mood: "okay" Affect: More reactivity. Diagnoses Unspecified depressive disorder. Autism spectrum disorder. Alcohol use disorder, severe. Assessment and Plan Unspecified depressive disorder: Continue lithium 300 mg BID with likely increased to 450 mg BID with continued improvement. Autism spectrum disorder: Continue Abilify, monitor for behavioral problems. Alcohol use disorder: Continue CIWA protocol. Disposition Potential discharge mid-week on Friday if patient continues to improve. Time Spent 15 minutes. Friday Vital Signs Vital Signs Date Time Temp Pulse Resp B/P (MAP) Pulse Ox O2 Delivery O2 Flow Rate FiO2 11/01/19 08:46 76 130/78 11/01/19 06:34 98.3 14 98 Room Air Laboratory Data 24H Labs Laboratory Tests 2 10/31/19 11:00: [place] Level 0.43L Current Medications Current Medications Medications (Trade) Dose Ordered Sig/Cory Route PRN Reason Start Time Stop Time Status Last Admin Dose Admin Acetaminophen (Tylenol Tab) 650 mg Q6HP PRN PO HEADACHE or DISCOMFORT 10/26/19 17:00 Al Hydrox/Mg Hydrox/Simethicone (Mylanta) 30 ml Q4HP PRN PO HEARTBURN/INDIGESTION 10/26/19 17:00 Aripiprazole (AbiLIFY) 10 mg QHS PO 10/26/19 21:00 10/31/19 21:26 Aripiprazole (AbiLIFY) 15 mg DAILY PO 10/27/19 09:00 11/01/19 08:46 Citalopram Hydrobromide (CeleXA) 20 mg DAILY PO 10/27/19 09:00 11/01/19 08:45 Folic Acid (Folic Acid) 1 mg DAILY PO 10/27/19 09:00 11/01/19 08:45 Home Med (Med Rec Complete!) ASDIRECTED XX 10/26/19 06:45 10/26/19 06:41 DC [place] Carbonate ([place] Carbonate) 150 mg BID PO 10/28/19 11:00 10/30/19 14:40 DC 10/30/19 08:35 [place] Carbonate ([place] Carbonate) 300 mg BID PO 10/30/19 21:00 11/01/19 08:45 Magnesium Hydroxide (Milk Of Magnesia) 30 ml DAILYPRN PRN PO CONSTIPATION 10/26/19 17:00 Metformin HCl (Glucophage) 500 mg DAILY@0800 PO 10/27/19 08:00 11/01/19 07:48 Multivitamins (Theragram-M) 1 tab DAILY PO 10/27/19 09:00 11/01/19 08:45 Oxcarbazepine (Trileptal) 300 mg QAM PO 10/27/19 09:00 11/01/19 08:45 Oxcarbazepine (Trileptal) 600 mg QHS PO 10/26/19 21:00 10/31/19 21:26 Propranolol HCl (Inderal La) 60 mg DAILY PO 10/27/19 09:00 11/01/19 08:46 Thiamine HCl (Thiamine HCl) 100 mg DAILY PO 10/27/19 09:00 11/01/19 08:46 Trazodone HCl (Desyrel) 50 mg QHSP PRN PO INSOMNIA 10/26/19 17:00 10/28/19 22:09 Allergies Coded Allergies: cariprazine (Verified Allergy, Intermediate, increased SI, 10/01/19) Penicillins (Verified Allergy, Mild, rash, 10/01/19) hydroxyzine (Verified Allergy, Mild, ITCH/RASH , 10/01/19) CAN TAKE HYDROXYZINE PAMOATE risperidone (Verified Allergy, Mild, RASH, 10/01/19) prednisone (Verified Adverse Reaction, Intermediate, anxiety, agitation, 05/17/19) quetiapine (Verified Adverse Reaction, Intermediate, OCULOGYRIC CRISIS, 05/17/19) Uncoded Allergies: FRANCISCO DEODORANT (Allergy, Intermediate, RASH, 05/17/19) BIGG PATEL DO November 01, 2019 09:52
[2019-11-01 16:42] VITALS: BP 143/72
[2019-11-01] MEDS: LITHIUM CARBONATE 150 MG CAP PO SCH (20:47)
[2019-11-01] MEDS: ARIPiprazole 10 MG TAB PO SCH (20:48)
[2019-11-01] MEDS: traZODone 50 MG TAB PO PRN (21:44)
[2019-11-02 06:26] VITALS: BP 137/81
[2019-11-02] MEDS: metFORMIN (GLUCOPHAGE) 500 MG TAB PO SCH (07:31)
[2019-11-02] MEDS: MULTIVITAMINS/MINERALS THERAP 1 TAB PO SCH (08:26)
[2019-11-02] MEDS: CitaloPRAM (CeleXA) 20 MG TAB PO SCH (08:26)
[2019-11-02] MEDS: ARIPiprazole 15 MG TAB (AbiLIFY) PO SCH (08:26)
[2019-11-02] MEDS: LITHIUM CARBONATE 150 MG CAP PO SCH ×2 (08:26→20:30)
[2019-11-02] MEDS: THIAMINE 100 MG TAB PO SCH (08:26)
[2019-11-02] MEDS: FOLIC ACID 1 MG TAB PO SCH (08:27)
[2019-11-02] MEDS: OXcarbazepine 300 MG TAB PO SCH ×2 (08:27→20:29)
[2019-11-02] MEDS: PROPRANOLOL 60 MG LA CAP PO SCH (08:27)
--- NOTE | 2019-11-02 09:24 | MHIPNPDOC ---
[facility] Progress Note Progress Note Inpatient Progress Note Grace Watson MRN: N/A Date of : N/A Date of Service: 11/02/2019 History of Present Illness The patient is a well-known 34-year-old woman with a history of autism and alcoholism, presents after reportedly getting into an argument while drunk and threatening to kill herself. The patient reports that she is suicidal and depressed due to various losses in her family as well as difficulties in her family. She reports that she's had difficulty with low mood and drinking. She generally has little ability to relate and is fixated on multiple topics as is her normal. The patient reports no major changes in her social life other than the of her grandmother which was several months ago, and she reports no major changes in symptoms other than the depressed mood and anxiousness relate to her psychosocial stressors as elaborated above. Interval History The patient is met with today. She reports she is feeling much better, is interested in TLS and has no depression. Her fatigue has resolved and she is coping well with suicidal thoughts. She reports that when she has them she is able to talk them out and reports that otherwise she is doing quite well on the unit. No major behavioral problems overnight, excited about going tomorrow. Review Of Systems General: Denies fever or appetite changes Cardiovascular: Denies Chest pain or palpations GI: Denies Nausea, vomiting, or bowel changes Respiratory: Denies shortness of breath or cough Neuro: Denies dizziness, tremors Derm: Denies any rashes or pruritus : Denies any dysuria or urinary problems MSK: Denies any muscle tightness or stiffness HEENT: Denies any vision changes or headaches Psychotherapy None on this visit. Vital Signs Reviewed. Mental Status Examination General: Well dressed with good hygiene Speech: Spontaneous and fluid Thought processes: Linear and logical MSK: Smooth and coordinated gait, no signs of tremors or involuntary orofacial movements Thought content: Less repetitive. Abstract reasoning, and computation: Intact Description of associations: Chronic loosening secondary to the autism Description of abnormal or psychotic thoughts: Denies any suicidal thoughts or homicidal thoughts. At this time reports reduced auditory hallucinations. Judgment: Improved. Insight: Improved. Orientation: Alert and orientated 3 Cognition: Grossly normal Recent and remote memory: Intact Attention span and concentration: Intact Fund of knowledge: Adequate Mood: "okay" Affect: More euthymic. Diagnoses Unspecified depressive disorder. Autism spectrum disorder. Alcohol use disorder, severe. Assessment and Plan Unspecified depressive disorder: Continue lithium 450 mg BID with lithium level tomorrow. Autism spectrum disorder: Continue Abilify, monitor for behavioral problems. Alcohol use disorder: Continue CIWA protocol. Disposition Discharge tomorrow with lithium level in the morning. Time Spent 15 minutes. Friday Vital Signs Vital Signs Date Time Temp Pulse Resp B/P (MAP) Pulse Ox O2 Delivery O2 Flow Rate FiO2 11/02/19 08:27 88 139/62 11/02/19 06:26 97.6 12 Room Air 11/01/19 06:34 98 Current Medications Current Medications Medications (Trade) Dose Ordered Sig/[place] Route PRN Reason Start Time Stop Time Status Last Admin Dose Admin Acetaminophen (Tylenol Tab) 650 mg Q6HP PRN PO HEADACHE or DISCOMFORT 10/26/19 17:00 Al Hydrox/Mg Hydrox/Simethicone (Mylanta) 30 ml Q4HP PRN PO HEARTBURN/INDIGESTION 10/26/19 17:00 Aripiprazole (AbiLIFY) 10 mg QHS PO 10/26/19 21:00 11/01/19 20:48 Aripiprazole (AbiLIFY) 15 mg DAILY PO 10/27/19 09:00 11/02/19 08:26 Citalopram Hydrobromide (CeleXA) 20 mg DAILY PO 10/27/19 09:00 11/02/19 08:26 Folic Acid (Folic Acid) 1 mg DAILY PO 10/27/19 09:00 11/02/19 08:27 Home Med (Med Rec Complete!) ASDIRECTED XX 10/26/19 06:45 10/26/19 06:41 DC [place] Carbonate ([place] Carbonate) 150 mg BID PO 10/28/19 11:00 10/30/19 14:40 DC 10/30/19 08:35 [place] Carbonate ([place] Carbonate) 300 mg BID PO 10/30/19 21:00 11/01/19 10:53 DC 11/01/19 08:45 [place] Carbonate ([place] Carbonate) 450 mg BID PO 11/01/19 21:00 11/02/19 08:26 Magnesium Hydroxide (Milk Of Magnesia) 30 ml DAILYPRN PRN PO CONSTIPATION 10/26/19 17:00 Metformin HCl (Glucophage) 500 mg DAILY@0800 PO 10/27/19 08:00 11/02/19 07:31 Multivitamins (Theragram-M) 1 tab DAILY PO 10/27/19 09:00 11/02/19 08:26 Oxcarbazepine (Trileptal) 300 mg QAM PO 10/27/19 09:00 11/02/19 08:27 Oxcarbazepine (Trileptal) 600 mg QHS PO 10/26/19 21:00 11/01/19 20:48 Propranolol HCl (Inderal La) 60 mg DAILY PO 10/27/19 09:00 11/02/19 08:27 Thiamine HCl (Thiamine HCl) 100 mg DAILY PO 10/27/19 09:00 11/02/19 08:26 Trazodone HCl (Desyrel) 50 mg QHSP PRN PO INSOMNIA 10/26/19 17:00 11/01/19 21:44 Allergies Coded Allergies: cariprazine (Verified Allergy, Intermediate, increased SI, 10/01/19) Penicillins (Verified Allergy, Mild, rash, 10/01/19) hydroxyzine (Verified Allergy, Mild, ITCH/RASH , 10/01/19) CAN TAKE HYDROXYZINE PAMOATE risperidone (Verified Allergy, Mild, RASH, 10/01/19) prednisone (Verified Adverse Reaction, Intermediate, anxiety, agitation, 05/17/19) quetiapine (Verified Adverse Reaction, Intermediate, OCULOGYRIC CRISIS, 05/17/19) Uncoded Allergies: FRANCISCO DEODORANT (Allergy, Intermediate, RASH, 05/17/19) BIGG PATEL DO November 02, 2019 09:24
[2019-11-02 16:05] VITALS: BP 137/68
[2019-11-02] MEDS: ARIPiprazole 10 MG TAB PO SCH (20:29)
[2019-11-03 06:31] VITALS: BP 146/56
[2019-11-03] MEDS: ARIPiprazole 15 MG TAB (AbiLIFY) PO SCH (08:24)
[2019-11-03 08:25] VITALS: BP 140/69
[2019-11-03] MEDS: metFORMIN (GLUCOPHAGE) 500 MG TAB PO SCH (08:25)
[2019-11-03] MEDS: PROPRANOLOL 60 MG LA CAP PO SCH (08:25)
[2019-11-03] MEDS: OXcarbazepine 300 MG TAB PO SCH (08:25)
[2019-11-03] MEDS: CitaloPRAM (CeleXA) 20 MG TAB PO SCH (08:25)
[2019-11-03] MEDS: FOLIC ACID 1 MG TAB PO SCH (08:25)
[2019-11-03] MEDS: THIAMINE 100 MG TAB PO SCH (08:25)
[2019-11-03] MEDS: MULTIVITAMINS/MINERALS THERAP 1 TAB PO SCH (08:25)
[2019-11-03] MEDS: LITHIUM CARBONATE 150 MG CAP PO SCH (08:25)
--- NOTE | 2019-11-03 10:00 | MHDSPDOC ---
[facility] Discharge Summary Discharge Summary DATE OF ADMISSION: October 26, 2019 at 17:15 DATE OF DISCHARGE: 11/03/2019 Discharge Grace Watson MRN: N/A Date of : N/A Date of Service: 11/03/2019 Diagnoses Unspecified depressive disorder. Autism spectrum disorder. Alcohol use disorder, severe. History of Present Illness The patient is a well-known 34-year-old woman with a history of autism and alcoholism, presents after reportedly getting into an argument while drunk and threatening to kill herself. The patient reports that she is suicidal and depressed due to various losses in her family as well as difficulties in her family. She reports that she's had difficulty with low mood and drinking. She generally has little ability to relate and is fixated on multiple topics as is her normal. The patient reports no major changes in her social life other than the of her grandmother which was several months ago, and she reports no major changes in symptoms other than the depressed mood and anxiousness relate to her psychosocial stressors as elaborated above. Consultants Involved Hospitalist/PCP screening Treatment and Progress On The Unit The patient was admitted to the inpatient mental health unit and resumed on her Abilify, Cymbalta and propranolol at her home doses. She notably had depression and suicidal thoughts. She was started on lithium increased to first to 150 mg BID then increased to a total 450 mg BID with positive results. The patient became much less depressed, more able to cope. Her lithium level ended at 0.49 at trough on the day of discharge with no side effects noted. The patient report ed that she generally did well without any particular problems and her depression, suicidal ideation resolved well. She did have some difficulty socializing as is chronic for her autism spectrum disorder but she did not have overt self-destructive behavior while on the unit. Discharge Assessment 34-year-old woman with a history of autism and depression presents after becoming drunk and belligerent where she subsequently is admitted out of an abundance of caution. She has multiple admissions and generally her living situation provokes much of her problems especially with her parents. She was referred to Transitional Living Services as this will help ideally lower her presentations although offered alcohol cessation medication, she had declined them after discussion. She is augmented with lithium and continued on Abilify with positive results for her depression. Suggesting she possibly could do better with a impulse inhibiting agent. The patient at the time of discharge did not meet criteria for involuntary adm ission/extension due to having a normal mental status exam, fair insight into the situation, They are engaged in the discharge process, as well as being friendly and amenable in behavioral control and havent been engaging in any observed concerning behavior or ideation recently. They decline voluntary extension/admission at this time and must be discharged in good marta, as Im un able to make a case for holding the patient against their will. They may have historical risk factors of admissions and other interactions with psychiatry however, those are not modifiable from a clinical perspective. The patient will need to be discharged in good marta. Changed normal to improved Mental Status Examination General: Well dressed with good hygiene Speech: Spontaneous and fluid Thought processes: Linear and logical MSK: Smooth and coordinated gait, no signs of tremors or involuntary orofacial movements Thought content: Future orientated Abstract reasoning, and computation: Intact Description of associations: Baseline Description of abnormal or psychotic thoughts: Denies any suicidal or homicidal ideation. Denies any auditory or visual hallucinations. Does not appear to be responding to internal stimuli. Does not appear to be endorsing any bizarre or paranoid ideation. Judgment: Improved Insight: Improved Orientation: Alert and orientated 3 Cognition: Grossly normal Recent and remote memory: Intact Attention span and concentration: Intact Fund of knowledge: Adequate Mood: "okay" Affect: Euthymic with a full range Follow Up The social work team worked during the predischarge meeting in order to evaluate for further issues of lethality address them fully before discharge. They worked on safety planning with the patient's family members in order to ensure that the patient will have a safe and effective discharge. Time Spent The amount of time spent in the coordination of care for this patient was a pproximately 45 minutes. Friday Vital Signs/I&Os Vital Signs Date Time Temp Pulse Resp B/P (MAP) Pulse Ox O2 Delivery O2 Flow Rate FiO2 11/03/19 08:25 85 140/69 11/03/19 06:31 98.1 16 11/02/19 06:26 Room Air 11/01/19 06:34 98 Laboratory Data Labs 24H Laboratory Tests 2 11/03/19 06:38: [place] Level 0.49L Medications Scheduled Aripiprazole (Aripiprazole) 15 Mg Tablet, 15 MG PO DAILY, (Reported) Aripiprazole (Aripiprazole) 10 Mg Tablet, 10 MG PO QHS, (Reported) Benztropine Mesylate (Benztropine Mesylate) 0.5 Mg Tablet, 0.5 MG PO DAILY, (Reported) Benztropine Mesylate (Benztropine Mesylate) 0.5 Mg Tablet, 0.5 MG PO Q2D, (Reported) QHS Calcium Carbonate/Vitamin D3 (Calcium 600-Vit D3 800 Tablet) 1 Each Tablet, 1 TAB PO DAILY, (Reported) Citalopram Hydrobromide (Celexa) 20 Mg Tablet, 20 MG PO DAILY, (Reported) [place] Carbonate ([place] Carbonate) 150 Mg Capsule, 450 MG PO BID for mood for 7 Days, #42 Metformin HCl (Metformin HCl) 500 Mg Tablet, 500 MG PO DAILY, (Reported) Oxcarbazepine (Oxcarbazepine) 300 Mg Tablet, 300 MG PO DAILY, (Reported) Oxcarbazepine (Oxcarbazepine) 600 Mg Tablet, 600 MG PO QHS, (Reported) Propranolol HCl (Propranolol HCl ER) 60 Mg Cap.sa.24h, 60 MG PO QAM, (Reported) Vitamin E (Dl,Tocopheryl Acet) (Vitamin E) 400 Unit Capsule, 400 UNIT PO DAILY, (Reported) Scheduled PRN Hydroxyzine Pamoate (Hydroxyzine Pamoate) 25 Mg Capsule, 25 MG PO BID PRN for ANXIETY/AGITATION, (Reported) Melatonin (Melatonin) 3 Mg Tablet, 3 MG PO QHS PRN for SLEEP, (Reported) Allergies Coded Allergies: cariprazine (Verified Allergy, Intermediate, increased SI, 10/01/19) Penicillins (Verified Allergy, Mild, rash, 10/01/19) hydroxyzine (Verified Allergy, Mild, ITCH/RASH , 10/01/19) CAN TAKE HYDROXYZINE PAMOATE risperidone (Verified Allergy, Mild, RASH, 10/01/19) prednisone (Verified Adverse Reaction, Intermediate, anxiety, agitation, 05/17/19) quetiapine (Verified Adverse Reaction, Intermediate, OCULOGYRIC CRISIS, 05/17/19) Uncoded Allergies: FRANCISCO DEODORANT (Allergy, Intermediate, RASH, 05/17/19) BIGG PATEL DO November 03, 2019 10:00
[2019-11-03] MEDS ORDERED: LITH150C PO (10:09)
== END 2019-11-03 13:15 | disposition home or self-care (01) | DRG 754 ==
LOC: M ED 20:08 → M ED INP 10-26 17:15 → M PSY 10-26 17:29
PROVIDERS: ADMIT Psychiatry & Neurology Addiction Medicine; ATTEND Psychiatry & Neurology Addiction Medicine
DX: F32.9 Major depressive disorder, single episode, unspecified (principal); E11.9 Type 2 diabetes mellitus without complications; R45.851 Suicidal ideations; F84.0 Autistic disorder; F10.20 Alcohol dependence, uncomplicated; Z79.899 Other long term (current) drug therapy; Z79.84 Long term (current) use of oral hypoglycemic drugs; Z88.0 Allergy status to penicillin; Z88.8 Allergy status to other drugs, medicaments and biological substances

== ENCOUNTER → 2019-11-24 | Outpatient (CLI) | payer MEDICAID ==
[~2019-11-24] MED LIST changes: +LITH150C PO; +LITH1TAB PO
[2019-11-24 11:32] LABS: BASO % 0.4 % (0.0-1.0); EOS # 0.3 10^3/uL (0.0-0.5); EOS % 2.5 % (0.0-3.0); HEMATOCRIT 40.6 % (36.0-47.0); HEMOGLOBIN 12.6 g/dl (12.0-15.5); LYMPH % 9.9 % (24.0-44.0); MEAN CORPUSCULAR HEMOGLOBIN 27.2 pg (27.0-33.0); MEAN CORPUSCULAR VOLUME 87.7 fl (80.0-96.0); MONO # 0.5 10^3/uL (0.0-0.8); MONO % 4.7 % (0.0-5.0); NEUTROPHILS # 8.1 10^3/uL (1.5-8.5); PLATELET COUNT, AUTOMATED 254 10^3/uL (150-450); RED BLOOD COUNT 4.63 10^6/uL (4.00-5.40); WHITE BLOOD COUNT 9.9 10^3/uL (4.0-10.0)
[2019-11-24 11:42] LABS: ALBUMIN 3.4 GM/DL (3.2-5.2); ALT/SGPT 48 U/L (12-78); BILIRUBIN,TOTAL 0.2 MG/DL (0.2-1.0); BLOOD UREA NITROGEN 14 MG/DL (7-18); CALCIUM LEVEL 8.9 MG/DL (8.5-10.1); CARBON DIOXIDE LEVEL 27 MEQ/L (21-32); CHLORIDE LEVEL 105 MEQ/L (98-107); FREE T4 0.67 NG/DL (0.76-1.46); GLOMERULAR FILTRATION RATE > 60.0 (>60); GLUCOSE, FASTING 161 MG/DL (70-100); LITHIUM LEVEL 0.86 MEQ/L (0.60-1.20); PHOSPHORUS LEVEL 3.3 MG/DL (2.5-4.9); POTASSIUM SERUM 4.2 MEQ/L (3.5-5.1); SODIUM LEVEL 139 MEQ/L (136-145)
[2019-11-24 12:10] LABS: HEMOGLOBIN A1c 6.4 %
== END ==
LOC: M PLALAB 08:16
PROVIDERS: ATTEND Psychiatry & Neurology Child & Adolescent Psychiatry
DX: F33.1 Major depressive disorder, recurrent, moderate (principal); F84.0 Autistic disorder

== ENCOUNTER 2019-11-26 14:53 | Inpatient (IN) | payer MEDICAID ==
[~2019-11-26] VITALS: Ht 157.5 cm; Wt 95.1 kg
[~2019-11-26 14:53] MED LIST changes: -LITH1TAB PO
[2019-11-26 15:36] LABS: HEMATOCRIT 39.7 % (36.0-47.0); HEMOGLOBIN 13.1 g/dl (12.0-15.5); MEAN CORPUSCULAR HEMOGLOBIN 28.5 pg (27.0-33.0); MEAN CORPUSCULAR VOLUME 86.3 fl (80.0-96.0); PLATELET COUNT, AUTOMATED 263 10^3/uL (150-450); WHITE BLOOD COUNT 12.5 10^3/uL (4.0-10.0)
[2019-11-26 16:04] LABS: HCG, SERUM QUALITATIVE NEGATIVE (NEGATIVE)
[2019-11-26 16:14] LABS: ACETAMINOPHEN LEVEL < 2.0 UG/ML (10.0-30.0); ALBUMIN 3.7 GM/DL (3.2-5.2); ALT/SGPT 39 U/L (12-78); BILIRUBIN,DIRECT < 0.1 MG/DL (0.0-0.2); BILIRUBIN,TOTAL 0.2 MG/DL (0.2-1.0); BLOOD UREA NITROGEN 11 MG/DL (7-18); CALCIUM LEVEL 8.9 MG/DL (8.5-10.1); CARBON DIOXIDE LEVEL 28 MEQ/L (21-32); CHLORIDE LEVEL 106 MEQ/L (98-107); ETHYL ALCOHOL (ETHANOL) < 0.003 % (0.000-0.010); GLOMERULAR FILTRATION RATE > 60.0 (>60); GLUCOSE, FASTING 101 MG/DL (70-100); POTASSIUM SERUM 4.5 MEQ/L (3.5-5.1); SALICYLATE LEVEL 2.3 MG/DL (5.0-30.0); SODIUM LEVEL 139 MEQ/L (136-145); TOTAL PROTEIN 7.4 GM/DL (6.4-8.2)
[2019-11-26 16:20] LABS: AMPHETAMINES LEVEL URINE NEGATIVE (NEGATIVE); BARBITURATES URINE NEGATIVE (NEGATIVE); BENZODIAZEPINES URINE NEGATIVE (NEGATIVE); CANNABINOIDS URINE NEGATIVE (NEGATIVE); COCAINE METABOLITE URINE NEGATIVE (NEGATIVE); METHADONE URINE NEGATIVE (NEGATIVE); OPIATES URINE NEGATIVE (NEGATIVE); PHENCYCLIDINE URINE NEGATIVE (NEGATIVE)
[2019-11-26] MEDS ORDERED: ACET-683 PO (20:14)
[2019-11-26] MEDS ORDERED: LITH1TAB PO (20:14)
[2019-11-26] MEDS ORDERED: MAALOX 30 ML SUSP *UDC PO PRN (20:30)
[2019-11-26] MEDS ORDERED: ACETAMINOPHEN TAB 650MG DOSE (2X325MG) PO PRN (20:30)
[2019-11-26] MEDS ORDERED: MOM 30ML SUSPENSION UDC PO PRN (20:30)
[2019-11-26] MEDS ORDERED: ACETAMINOPHEN 500 MG TAB PO PRN (21:00)
[2019-11-26 21:44] VITALS: BP 133/94
[2019-11-26] MEDS: LITHIUM CARBONATE 300 MG **CR** TAB PO SCH (22:14)
[2019-11-26] MEDS: BENZTROPINE 0.5 MG TAB PO SCH (22:15)
[2019-11-26] MEDS: ARIPiprazole 10 MG TAB PO SCH (22:15)
[2019-11-26] MEDS: OXcarbazepine 300 MG TAB PO SCH (22:16)
[2019-11-27 06:15] VITALS: BP 132/62
[2019-11-27] MEDS: ARIPiprazole 15 MG TAB (AbiLIFY) PO SCH (08:21)
[2019-11-27] MEDS: metFORMIN (GLUCOPHAGE) 500 MG TAB PO SCH (08:21)
[2019-11-27] MEDS: LITHIUM CARBONATE 300 MG **CR** TAB PO SCH ×2 (08:21→20:45)
[2019-11-27] MEDS: VITAMIN E 400 INTERNATIONAL UNITS CAP PO SCH (08:21)
[2019-11-27] MEDS: OXcarbazepine 300 MG TAB PO SCH ×2 (08:21→20:45)
[2019-11-27] MEDS: CitaloPRAM (CeleXA) 20 MG TAB PO SCH (08:21)
[2019-11-27] MEDS: PROPRANOLOL 60 MG LA CAP PO SCH (09:28)
--- NOTE | 2019-11-27 10:20 | MHHPEPDOC ---
General Date Of Admission: Nov 26, 2019 Legal Status: 9.13 Chief Complaint "I was suicidal. History of Present Illness HISTORY OF THE PRESENT ILLNESS: Patient is a 34 -year-old , female, who presents to [facility] after reporting suicidal thoughts. She reports she is been doing well with no major stressors, she reports she is been sober from alcohol for one month, but that she suddenly began to experience suicidal thoughts with no particular rhyme or reason. She reports that she had tried various attempts over the last week but had aboard them, she reports that she came in and was admitted voluntarily. The patient does report any major psychosocial stressors medication changes other than a mild increase in lithium.. General: Well dressed with good hygiene Speech: Spontaneous and fluid Thought processes: Linear and logical Thought content: autistic content Abstract reasoning, and computation: Intact Description of associations: Intact Description of abnormal or psychotic thoughts: admits to suicidal thoughts. No plan or intent this time Judgment: limited Insight: limited Orientation: Alert and orientated 3 Recent and remote memory: Intact Attention span and concentration: Intact Fund of knowledge: Adequate Mood: "okay" Affect: flat little reactivity Psychiatric Review of Systems Depression (2 or more weeks): suicidal thoughts Dora (4 or more days of): denies Psychosis: auditory hallucination PTSD: denies Anxiety: denies Past Psychiatric History Previous Psychiatric Diagnosis: autism and depression. Previous Psychiatric Admissions: multiple last one month ago. Suicide Attempts: unclear, no confirmed. Psychiatric Follow-up: [facility]. Psychiatric medications: Dr. Castanon. Past Medical History Medical Problems weight gain from medications Family Medical/Psychiatric HX Psychiatric Disorders: No Addiction: No Suicide Attemps/Completions: No Addiction History alcohol, denies, other (negative urine toxicology on admission) Social History Childhood: made difficult by her autism. Abuse/Trauma: no notation. Current Living Situation: lives with parents. Education: assisted education. Employment: unemployed this time. Social Support: few. Legal: none noted. Marital: single unmarried no children. Assessment 34-year-old woman with a history of autism and depression presents with suicidal thoughts, it's unclear as her symptoms don't generally mesh well with a depressed individual suicidal but perhaps an individual who has significant difficulties with socialization and may misunderstand the nuances of suicide. Problem List Problems: (1) Suicidal ideation Status: Acute Response to Treatment: Controlled Problem Text: safe at this time (2) Mood disorder Status: Acute Response to Treatment: Uncontrolled Problem Text: joe, will resume home medications with no alterations at this time, will confer with Dr. Castanon (3) Autism Status: Chronic Problem Text: likely will need supportive housing (4) Alcohol abuse Status: Chronic Response to Treatment: Stable Initial Treatment Plan 1. Patient was admitted on a [9.13] status. 2. Complete history was obtained. 3. With patients permission, family will be contacted and database will be expanded. 4. Patients medication regimen will be reviewed and changed accordingly. 5. Patient will be provided with protected environment. 6. Patient will be treated with individual, group, and milieu therapies. 7. Patient will receive supportive psych-education. 8. Discharge planning will commence immediately. 9. Outpatient follow-up treatment will be strongly recommended. 10. The initial treatment plan will focus initially on: Risk for suicide. ESTIMATED LENGTH OF STAY: 2-3 DAYS. TIME SPENT COUNSELING AND COORDINATING INITIAL CARE: 30 minutes. Vital Signs Vital Signs Date Time Temp Pulse Resp B/P (MAP) Pulse Ox O2 Delivery O2 Flow Rate FiO2 11/27/19 09:28 80 136/69 11/27/19 06:15 99.1 16 100 Room Air Laboratory Data 24H Labs Laboratory Tests 2 11/26/19 15:17: Nucleated Red Blood Cells % (auto) 0.0, Anion Gap 5L, Glomerular Filtration Rate > 60.0, Calcium Level 8.9, Total Bilirubin 0.2, Direct Bilirubin < 0.1, Aspartate Amino Transf (AST/SGOT) 22, Alanine Aminotransferase (ALT/SGPT) 39, Alkaline Phosphatase 80, Total Protein 7.4, Albumin 3.7, Albumin/Globulin Ratio 1.0L, Thyroid Stimulating Hormone (TSH) 2.900, Human Chorionic Gonadotropin, Qual NEGATIVE, Salicylates Level 2.3L, Acetaminophen Level < 2.0L, Ethyl Alcohol Level < 0.003 11/26/19 15:34: Urine Opiates Screen NEGATIVE, Urine Methadone Screen NEGATIVE, Urine Barbiturates Screen NEGATIVE, Urine Phencyclidine Screen NEGATIVE, Urine Amphetamines Screen NEGATIVE, Urine Benzodiazepines Screen NEGATIVE, Urine Cocaine Metabolite Screen NEGATIVE, Urine Cannabinoids Screen NEGATIVE 11/27/19 07:00: Bedside Glucose (Misc Panel) 121H CBC/BMP Laboratory Tests 11/26/19 15:17 Medications Scheduled Aripiprazole (Aripiprazole) 15 Mg Tablet, 15 MG PO QAM, (Reported) Aripiprazole (Aripiprazole) 10 Mg Tablet, 10 MG PO QHS, (Reported) Benztropine Mesylate (Benztropine Mesylate) 0.5 Mg Tablet, 0.5 MG PO QHS, (Reported) Benztropine Mesylate (Benztropine Mesylate) 0.5 Mg Tablet, 0.5 MG PO Q2D, (Reported) QAM Calcium Carbonate/Vitamin D3 (Calcium 600-Vit D3 800 Tablet) 1 Each Tablet, 1 TAB PO DAILY, (Reported) Citalopram Hydrobromide (Celexa) 20 Mg Tablet, 20 MG PO DAILY, (Reported) [place] Carbonate ([place]'Neill Carbonate ER) 300 Mg Tablet.er, 600 MG PO Q12H, (Reported) Metformin HCl (Metformin HCl) 500 Mg Tablet, 500 MG PO DAILY, (Reported) Oxcarbazepine (Oxcarbazepine) 300 Mg Tablet, 300 MG PO QAM, (Reported) Oxcarbazepine (Oxcarbazepine) 600 Mg Tablet, 600 MG PO QHS, (Reported) Propranolol HCl (Propranolol HCl ER) 60 Mg Cap.sa.24h, 60 MG PO QAM, (Reported) Vitamin E (Dl,Tocopheryl Acet) (Vitamin E) 400 Unit Capsule, 400 UNIT PO DAILY, (Reported) Scheduled PRN Acetaminophen (Acetaminophen) 500 Mg Tablet, 500 MG PO Q6H PRN for PAIN, (Reported) Hydroxyzine Pamoate (Hydroxyzine Pamoate) 25 Mg Capsule, 25 MG PO DAILY PRN for ANXIETY/AGITATION, (Reported) PATIENT STATES NOT ALLERGIC TO THIS ONE Melatonin (Melatonin) 3 Mg Tablet, 3 MG PO QHS PRN for SLEEP, (Reported) Allergies Coded Allergies: cariprazine (Verified Allergy, Intermediate, increased SI, 10/01/19) Penicillins (Verified Allergy, Mild, rash, 10/01/19) hydroxyzine (Verified Allergy, Mild, ITCH/RASH , 10/01/19) CAN TAKE HYDROXYZINE PAMOATE risperidone (Verified Allergy, Mild, RASH, 10/01/19) prednisone (Verified Adverse Reaction, Intermediate, anxiety, agitation, 05/17/19) quetiapine (Verified Adverse Reaction, Intermediate, OCULOGYRIC CRISIS, 05/17/19) BIGG PATEL DO Nov 27, 2019 10:20
[2019-11-27 15:57] VITALS: BP 133/67
[2019-11-27] MEDS: BENZTROPINE 0.5 MG TAB PO SCH (20:45)
[2019-11-27] MEDS: ARIPiprazole 10 MG TAB PO SCH (20:45)
[2019-11-27] MEDS: hydrOXYzine 25 MG TAB PO PRN (21:50)
[2019-11-27] MEDS: traZODone 50 MG TAB PO PRN (21:52)
[2019-11-28 06:07] VITALS: BP 133/76
--- NOTE | 2019-11-28 07:53 | HPEPDOC ---
[facility] Medical History & Physical Date of Admission Nov 26, 2019 Date of Service: Nov 28, 2019 History and Physical CHIEF COMPLAINT: Admitted to inpatient mental unit after attempting to hang herself HISTORY OF PRESENT ILLNESS: 34-year-old female with past medical history of schizoaffective disorder and diabetes mellitus is admitted to inpatient mental health unit after attempting to hang herself. Patient reported that voices are head told her to hang herself and she tried, came to the hospital to seek help. Patient continues to hear voices with fleeting thoughts of suicide. She reports new diagnosis of diabetes mellitus, no other medical problems. She denies any shortness of breath, chest pain, nausea, vomiting, diarrhea or constipation. 10 point review of system is negative except for above PAST MEDICAL HISTORY: 1. Schizoaffective disorder. 2. Diabetes mellitus. PAST SURGICAL HISTORY: 1. Tonsillectomy. SOCIAL HISTORY: Denies smoking. Denies alcohol use. Denies drug use FAMILY HISTORY: Negative for cancer or heart disease ALLERGIES: Please see below. HOME MEDICATIONS: Please see below. PHYSICAL EXAMINATION: VITAL SIGNS: Please see below. GENERAL: No distress, morbidly obese HEENT: Normocephalic, atraumatic, moist mucous membranes NECK: Supple CARDIOVASCULAR EXAMINATION: S1, S2, no murmurs RESPIRATORY EXAMINATION: Clear to auscultation, no wheezing ABDOMINAL EXAMINATION: Soft, nontender, nondistended, positive bowel sounds EXTREMITIES: Range of motion intact SKIN: No rash NEUROLOGICAL EXAMINATION: Alert and oriented 3, no focal deficits PSYCHIATRIC EXAMINATION: Calm and cooperative LABORATORY DATA: See below. MICROBIOLOGY: Please see below. ASSESSMENT: 34-year-old female with schizoaffective disorder and diabetes mellitus is admitted to inpatient mental health unit after attempting to hang herself. PLAN: 1. Schizoaffective disorder/suicide attempt. Management as per primary team 2. Diabetes mellitus Continue metformin, outpatient follow with PCP Patient has no other active medical issues at this time, please reconsult as needed. Vital Signs Vital Signs Date Time Temp Pulse Resp B/P (MAP) Pulse Ox O2 Delivery O2 Flow Rate FiO2 11/28/19 06:07 96.9 76 18 133/76 (95) 98 Room Air Laboratory Data Labs 24H Laboratory Tests 2 11/27/19 16:56: Bedside Glucose (Misc Panel) 120H 11/28/19 06:46: Bedside Glucose (Misc Panel) 113H Home Medications Scheduled Aripiprazole (Aripiprazole) 15 Mg Tablet, 15 MG PO QAM Aripiprazole (Aripiprazole) 10 Mg Tablet, 10 MG PO QHS Benztropine Mesylate (Benztropine Mesylate) 0.5 Mg Tablet, 0.5 MG PO QHS Benztropine Mesylate (Benztropine Mesylate) 0.5 Mg Tablet, 0.5 MG PO Q2D QAM Calcium Carbonate/Vitamin D3 (Calcium 600-Vit D3 800 Tablet) 1 Each Tablet, 1 TAB PO DAILY Citalopram Hydrobromide (Celexa) 20 Mg Tablet, 20 MG PO DAILY [place] Carbonate ([place] Carbonate ER) 300 Mg Tablet.er, 600 MG PO Q12H Metformin HCl (Metformin HCl) 500 Mg Tablet, 500 MG PO DAILY Oxcarbazepine (Oxcarbazepine) 300 Mg Tablet, 300 MG PO QAM Oxcarbazepine (Oxcarbazepine) 600 Mg Tablet, 600 MG PO QHS Propranolol HCl (Propranolol HCl ER) 60 Mg Cap.sa.24h, 60 MG PO QAM Vitamin E (Dl,Tocopheryl Acet) (Vitamin E) 400 Unit Capsule, 400 UNIT PO DAILY Scheduled PRN Acetaminophen (Acetaminophen) 500 Mg Tablet, 500 MG PO Q6H PRN for PAIN Hydroxyzine Pamoate (Hydroxyzine Pamoate) 25 Mg Capsule, 25 MG PO DAILY PRN for ANXIETY/AGITATION PATIENT STATES NOT ALLERGIC TO THIS ONE Melatonin (Melatonin) 3 Mg Tablet, 3 MG PO QHS PRN for SLEEP Allergies Coded Allergies: cariprazine (Verified Allergy, Intermediate, increased SI, 10/01/19) Penicillins (Verified Allergy, Mild, rash, 10/01/19) hydroxyzine (Verified Allergy, Mild, ITCH/RASH , 10/01/19) CAN TAKE HYDROXYZINE PAMOATE risperidone (Verified Allergy, Mild, RASH, 10/01/19) prednisone (Verified Adverse Reaction, Intermediate, anxiety, agitation, 05/17/19) quetiapine (Verified Adverse Reaction, Intermediate, OCULOGYRIC CRISIS, 05/17/19) A-FIB/CHADSVASC A-FIB History Current/History of A-Fib/PAF?: No SHELLI MOMIN MD Nov 28, 2019 07:53
[2019-11-28] MEDS: OXcarbazepine 300 MG TAB PO SCH ×2 (08:54→20:42)
[2019-11-28] MEDS: LITHIUM CARBONATE 300 MG **CR** TAB PO SCH ×2 (08:54→20:43)
[2019-11-28] MEDS: CitaloPRAM (CeleXA) 20 MG TAB PO SCH (08:54)
[2019-11-28] MEDS: ARIPiprazole 15 MG TAB (AbiLIFY) PO SCH (08:54)
[2019-11-28] MEDS: BENZTROPINE 0.5 MG TAB PO SCH ×2 (08:54→20:41)
[2019-11-28] MEDS: PROPRANOLOL 60 MG LA CAP PO SCH (08:55)
[2019-11-28] MEDS: metFORMIN (GLUCOPHAGE) 500 MG TAB PO SCH (08:55)
[2019-11-28] MEDS: VITAMIN E 400 INTERNATIONAL UNITS CAP PO SCH (08:55)
[2019-11-28] MEDS: hydrOXYzine 25 MG TAB PO PRN (09:29)
--- NOTE | 2019-11-28 11:13 | MHIPNPDOC ---
[facility] Progress Note Progress Note DOS: 11/28/2019 Patient met with today with nurse present for telehealth evaluation due to COVID Crisis Events Overnight:[none] Group Attendance::[frequent] Symptom changes (psych ROS): Affective: reports some low mood, no other symptoms Psychotic: none alluded to Anxiety: [no changes] Staff Report: patient generally amenable, reports SI but doesn't never act Medical ROS: [Gen: -fevers, chills] [Cardio: -chest pain, palpations] [[place]: -SOB, cough] [GI: -N,V,C] [Neuro: -tremors, msk stiffness] [Derm: -rash] MSE: Vitals: Below [General: Well dressed with good hygiene Speech: Spontaneous and fluid Thought processes: Linear and logical Thought content: Future orientated Abstract reasoning, and computation: Intact Description of associations: autistic Description of abnormal or psychotic thoughts: reports intermittent SI with no plan Judgment: chronically limited Insight: chronically limited Orientation: Alert and orientated 3 Recent and remote memory: Intact Attention span and concentration: Intact Fund of knowledge: Adequate Mood: "okay" Affect: no change] Vital Signs Vital Signs Date Time Temp Pulse Resp B/P (MAP) Pulse Ox O2 Delivery O2 Flow Rate FiO2 11/28/19 09:53 Room Air 11/28/19 08:55 79 129/74 11/28/19 06:07 96.9 18 98 Laboratory Data 24H Labs Laboratory Tests 2 11/27/19 16:56: Bedside Glucose (Misc Panel) 120H 11/28/19 06:46: Bedside Glucose (Misc Panel) 113H Current Medications Current Medications Medications (Trade) Dose Ordered Sig/Cory Route PRN Reason Start Time Stop Time Status Last Admin Dose Admin Acetaminophen (Tylenol Tab) 500 mg Q6H PRN PO PAIN 11/26/19 21:00 Acetaminophen (Tylenol Tab) 650 mg Q6HP PRN PO HEADACHE or DISCOMFORT 11/26/19 20:30 Cancel Al Hydrox/Mg Hydrox/Simethicone (Mylanta) 30 ml Q4HP PRN PO HEARTBURN/INDIGESTION 11/26/19 20:30 Aripiprazole (AbiLIFY) 10 mg QHS PO 11/26/19 21:00 11/27/19 20:45 Aripiprazole (AbiLIFY) 15 mg QAM PO 11/27/19 09:00 11/28/19 08:54 Benztropine Mesylate (Cogentin) 0.5 mg Q2D PO 11/28/19 09:00 11/28/19 08:54 Benztropine Mesylate (Cogentin) 0.5 mg QHS PO 11/26/19 21:00 11/27/19 20:45 Citalopram Hydrobromide (CeleXA) 20 mg DAILY PO 11/27/19 09:00 11/28/19 08:54 Home Med (Med Rec Complete!) ASDIRECTED XX 11/26/19 20:30 11/26/19 20:19 DC Hydroxyzine HCl (Atarax) 25 mg DAILY PRN PO ANXIETY/AGITATION 11/26/19 21:00 11/28/19 09:29 [place] Carbonate (Lithobid Cr) 600 mg Q12H PO 11/26/19 21:00 11/28/19 08:54 Magnesium Hydroxide (Milk Of Magnesia) 30 ml DAILYPRN PRN PO CONSTIPATION 11/26/19 20:30 Metformin HCl (Glucophage) 500 mg DAILY@0800 PO 11/27/19 08:00 11/28/19 08:55 Oxcarbazepine (Trileptal) 300 mg QAM PO 11/27/19 09:00 11/28/19 08:54 Oxcarbazepine (Trileptal) 600 mg QHS PO 11/26/19 21:00 11/27/19 20:45 Propranolol HCl (Inderal La) 60 mg QAM PO 11/27/19 09:00 11/28/19 08:55 Trazodone HCl (Desyrel) 50 mg QHSP PRN PO INSOMNIA 11/26/19 20:30 11/27/19 21:52 Vitamin E (Vitamin E) 400 units DAILY PO 11/27/19 09:00 11/28/19 08:55 Allergies Coded Allergies: cariprazine (Verified Allergy, Intermediate, increased SI, 10/01/19) Penicillins (Verified Allergy, Mild, rash, 10/01/19) hydroxyzine (Verified Allergy, Mild, ITCH/RASH , 10/01/19) CAN TAKE HYDROXYZINE PAMOATE risperidone (Verified Allergy, Mild, RASH, 10/01/19) prednisone (Verified Adverse Reaction, Intermediate, anxiety, agitation, 05/17/19) quetiapine (Verified Adverse Reaction, Intermediate, OCULOGYRIC CRISIS, 05/17/19) Problems (1) Suicidal ideation Status: Acute Response to Treatment: Improving (2) Mood disorder Status: Acute Response to Treatment: Uncontrolled Problem Text: Continue home medications (3) Autism Status: Chronic (4) Alcohol abuse Status: Chronic Response to Treatment: Stable Plan / VTE VTE Prophylaxis Ordered?: No Plan Diet: Continue Current Activity: Continue Current Anticipated Discharge: Home BIGG PATEL DO Nov 28, 2019 11:13
[2019-11-28 15:48] VITALS: BP 141/65
[2019-11-28] MEDS: ARIPiprazole 10 MG TAB PO SCH (20:42)
[2019-11-28] MEDS: traZODone 50 MG TAB PO PRN (21:02)
[2019-11-29 06:12] VITALS: BP 137/66
[2019-11-29] MEDS: metFORMIN (GLUCOPHAGE) 500 MG TAB PO SCH (07:28)
[2019-11-29] MEDS: CitaloPRAM (CeleXA) 20 MG TAB PO SCH (08:25)
[2019-11-29] MEDS: ARIPiprazole 15 MG TAB (AbiLIFY) PO SCH (08:25)
[2019-11-29] MEDS: LITHIUM CARBONATE 300 MG **CR** TAB PO SCH ×2 (08:25→20:17)
[2019-11-29] MEDS: PROPRANOLOL 60 MG LA CAP PO SCH (08:25)
[2019-11-29] MEDS: VITAMIN E 400 INTERNATIONAL UNITS CAP PO SCH (08:26)
[2019-11-29] MEDS: OXcarbazepine 300 MG TAB PO SCH ×2 (08:26→20:18)
--- NOTE | 2019-11-29 09:18 | MHIPNPDOC ---
[facility] Progress Note Progress Note DOS: 11/29/2019 Patient met with today with nurse present for telehealth evaluation due to COVID Crisis Events Overnight:[none] Group Attendance::[frequent] Symptom changes (psych ROS): Affective: reports some low mood and fatigue Psychotic:[None today] Anxiety: situational Staff Report: still reporting SI at times, but appears to be giggling and laughing Medical ROS: [Gen: -fevers, chills] [Cardio: -chest pain, palpations] [[place]: -SOB, cough] [GI: -N,V,D,C] [Neuro: -tremors, msk stiffness] [Derm: -rash] MSE: Vitals: Below [General: Well dressed with good hygiene Speech: Spontaneous and fluid Thought processes: Linear and logical Thought content: still Future orientated Abstract reasoning, and computation: Intact Description of associations: autistic Description of abnormal or psychotic thoughts: vague SI Judgment: chronically limited Insight: chronically limited Orientation: Alert and orientated 3 Recent and remote memory: Intact Attention span and concentration: Intact Fund of knowledge: Adequate Mood: "okay" Affect: Euthymic with a full range] Vital Signs Vital Signs Date Time Temp Pulse Resp B/P (MAP) Pulse Ox O2 Delivery O2 Flow Rate FiO2 11/29/19 08:25 78 139/68 11/29/19 06:12 98.0 12 Room Air 11/28/19 06:07 98 Laboratory Data 24H Labs Laboratory Tests 2 11/28/19 16:27: Bedside Glucose (Misc Panel) 102 11/29/19 06:13: Bedside Glucose (Misc Panel) 114H Current Medications Current Medications Medications (Trade) Dose Ordered Sig/Cory Route PRN Reason Start Time Stop Time Status Last Admin Dose Admin Acetaminophen (Tylenol Tab) 500 mg Q6H PRN PO PAIN 11/26/19 21:00 Acetaminophen (Tylenol Tab) 650 mg Q6HP PRN PO HEADACHE or DISCOMFORT 11/26/19 20:30 Cancel Al Hydrox/Mg Hydrox/Simethicone (Mylanta) 30 ml Q4HP PRN PO HEARTBURN/INDIGESTION 11/26/19 20:30 Aripiprazole (AbiLIFY) 10 mg QHS PO 11/26/19 21:00 11/28/19 20:42 Aripiprazole (AbiLIFY) 15 mg QAM PO 11/27/19 09:00 11/29/19 08:25 Benztropine Mesylate (Cogentin) 0.5 mg Q2D PO 11/28/19 09:00 11/28/19 08:54 Benztropine Mesylate (Cogentin) 0.5 mg QHS PO 11/26/19 21:00 11/28/19 20:41 Citalopram Hydrobromide (CeleXA) 20 mg DAILY PO 11/27/19 09:00 11/29/19 08:25 Home Med (Med Rec Complete!) ASDIRECTED XX 11/26/19 20:30 11/26/19 20:19 DC Hydroxyzine HCl (Atarax) 25 mg DAILY PRN PO ANXIETY/AGITATION 11/26/19 21:00 11/28/19 09:29 [place] Carbonate (Lithobid Cr) 600 mg Q12H PO 11/26/19 21:00 11/29/19 08:25 Magnesium Hydroxide (Milk Of Magnesia) 30 ml DAILYPRN PRN PO CONSTIPATION 11/26/19 20:30 Metformin HCl (Glucophage) 500 mg DAILY@0800 PO 11/27/19 08:00 11/29/19 07:28 Oxcarbazepine (Trileptal) 300 mg QAM PO 11/27/19 09:00 11/29/19 08:26 Oxcarbazepine (Trileptal) 600 mg QHS PO 11/26/19 21:00 11/28/19 20:42 Propranolol HCl (Inderal La) 60 mg QAM PO 11/27/19 09:00 11/29/19 08:25 Trazodone HCl (Desyrel) 50 mg QHSP PRN PO INSOMNIA 11/26/19 20:30 11/28/19 21:02 Vitamin E (Vitamin E) 400 units DAILY PO 11/27/19 09:00 11/29/19 08:26 Allergies Coded Allergies: cariprazine (Verified Allergy, Intermediate, increased SI, 10/01/19) Penicillins (Verified Allergy, Mild, rash, 10/01/19) hydroxyzine (Verified Allergy, Mild, ITCH/RASH , 10/01/19) CAN TAKE HYDROXYZINE PAMOATE risperidone (Verified Allergy, Mild, RASH, 10/01/19) prednisone (Verified Adverse Reaction, Intermediate, anxiety, agitation, 05/17/19) quetiapine (Verified Adverse Reaction, Intermediate, OCULOGYRIC CRISIS, 05/17/19) Problems (1) Suicidal ideation Status: Acute Response to Treatment: Improving (2) Mood disorder Status: Acute Response to Treatment: Improving Problem Specific Plan: Monitor Clinically Problem Text: Continue home medications, likely situational (3) Autism Status: Chronic (4) Alcohol abuse Status: Chronic Response to Treatment: Stable Plan / VTE VTE Prophylaxis Ordered?: No Plan Diet: Continue Current Activity: Continue Current [facility]ticipated [facility]charge[facility] [place] BIGG PATEL DO Nov 29, 2019 09:18
[2019-11-29] MEDS ORDERED: SENNA 8.6 MG TAB (SENOKOT) PO PRN (11:45)
[2019-11-29 16:48] VITALS: BP 126/68
[2019-11-29] MEDS: ARIPiprazole 10 MG TAB PO SCH (20:17)
[2019-11-29] MEDS: BENZTROPINE 0.5 MG TAB PO SCH (20:18)
[2019-11-29] MEDS: traZODone 50 MG TAB PO PRN (21:30)
[2019-11-30 06:06] VITALS: BP 139/84
[2019-11-30] MEDS: OXcarbazepine 300 MG TAB PO SCH ×2 (08:38→20:34)
[2019-11-30] MEDS: ARIPiprazole 15 MG TAB (AbiLIFY) PO SCH (08:38)
[2019-11-30] MEDS: CitaloPRAM (CeleXA) 20 MG TAB PO SCH (08:38)
[2019-11-30] MEDS: LITHIUM CARBONATE 300 MG **CR** TAB PO SCH ×2 (08:38→20:34)
[2019-11-30] MEDS: PROPRANOLOL 60 MG LA CAP PO SCH (08:38)
[2019-11-30] MEDS: VITAMIN E 400 INTERNATIONAL UNITS CAP PO SCH (08:38)
[2019-11-30] MEDS: BENZTROPINE 0.5 MG TAB PO SCH ×2 (08:39→20:34)
[2019-11-30] MEDS: metFORMIN (GLUCOPHAGE) 500 MG TAB PO SCH (08:39)
--- NOTE | 2019-11-30 09:23 | MHIPNPDOC ---
[facility] Progress Note Progress Note DOS: 11/30/2019 Patient met with today with nurse present for telehealth evaluation due to COVID Crisis Events Overnight:[none] Group Attendance::[frequent] Symptom changes (psych ROS): Affective: reports some low mood at times Psychotic: none reported Anxiety: situational Staff Report: still reports at times "not thoughts of suicide, but contemplations", patient appears to be euthymic per staff report much different than reported aspects Medical ROS: [Gen: -fevers, chills] [Cardio: -chest pain, palpations] [[place]: -SOB, cough] [GI: -N,V,D,C] [Neuro: -tremors, msk stiffness] [Derm: -rash] MSE: Vitals: Below [General: Well dressed with good hygiene Speech: Spontaneous and fluid Thought processes: Linear and logical Thought content: Future orientated Abstract reasoning, and computation: Intact Description of associations: no change Description of abnormal or psychotic thoughts: reports vague SI Judgment: chronically limited Insight: chronically limited Orientation: Alert and orientated 3 Recent and remote memory: Intact Attention span and concentration: Intact Fund of knowledge: Adequate Mood: "okay" Affect: Euthymic with a full range] Vital Signs Vital Signs Date Time Temp Pulse Resp B/P (MAP) Pulse Ox O2 Delivery O2 Flow Rate FiO2 11/30/19 08:38 71 134/72 11/30/19 06:06 98.8 18 11/29/19 06:12 Room Air 11/28/19 06:07 98 Laboratory Data 24H Labs Laboratory Tests 2 11/29/19 17:06: Bedside Glucose (Misc Panel) 97 11/30/19 06:44: Bedside Glucose (Misc Panel) 115H Current Medications Current Medications Medications (Trade) Dose Ordered Sig/Cory Route PRN Reason Start Time Stop Time Status Last Admin Dose Admin Acetaminophen (Tylenol Tab) 500 mg Q6H PRN PO PAIN 11/26/19 21:00 Acetaminophen (Tylenol Tab) 650 mg Q6HP PRN PO HEADACHE or DISCOMFORT 11/26/19 20:30 Cancel Al Hydrox/Mg Hydrox/Simethicone (Mylanta) 30 ml Q4HP PRN PO HEARTBURN/INDIGESTION 11/26/19 20:30 Aripiprazole (AbiLIFY) 10 mg QHS PO 11/26/19 21:00 6/8/20 20:17 Aripiprazole (AbiLIFY) 15 mg QAM PO 11/27/19 09:00 11/30/19 08:38 Benztropine Mesylate (Cogentin) 0.5 mg Q2D PO 11/28/19 09:00 11/30/19 08:39 Benztropine Mesylate (Cogentin) 0.5 mg QHS PO 11/26/19 21:00 11/29/19 20:18 Citalopram Hydrobromide (CeleXA) 20 mg DAILY PO 11/27/19 09:00 11/30/19 08:38 Home Med (Med Rec Complete!) ASDIRECTED XX 11/26/19 20:30 11/26/19 20:19 DC Hydroxyzine HCl (Atarax) 25 mg DAILY PRN PO ANXIETY/AGITATION 11/26/19 21:00 11/28/19 09:29 [place] Carbonate (Lithobid Cr) 600 mg Q12H PO 11/26/19 21:00 11/30/19 08:38 Magnesium Hydroxide (Milk Of Magnesia) 30 ml DAILYPRN PRN PO CONSTIPATION 11/26/19 20:30 Metformin HCl (Glucophage) 500 mg DAILY@0800 PO 11/27/19 08:00 11/30/19 08:39 Oxcarbazepine (Trileptal) 300 mg QAM PO 11/27/19 09:00 11/30/19 08:38 Oxcarbazepine (Trileptal) 600 mg QHS PO 11/26/19 21:00 11/29/19 20:18 Propranolol HCl (Inderal La) 60 mg QAM PO 11/27/19 09:00 11/30/19 08:38 Senna (Senokot) 2 tab Q12HP PRN PO CONSTIPATION 11/29/19 11:45 Trazodone HCl (Desyrel) 50 mg QHSP PRN PO INSOMNIA 11/26/19 20:30 11/29/19 21:30 Vitamin E (Vitamin E) 400 units DAILY PO 11/27/19 09:00 11/30/19 08:38 Allergies Coded Allergies: cariprazine (Verified Allergy, Intermediate, increased SI, 10/01/19) Penicillins (Verified Allergy, Mild, rash, 10/01/19) hydroxyzine (Verified Allergy, Mild, ITCH/RASH , 10/01/19) CAN TAKE HYDROXYZINE PAMOATE risperidone (Verified Allergy, Mild, RASH, 10/01/19) prednisone (Verified Adverse Reaction, Intermediate, anxiety, agitation, 05/17/19) quetiapine (Verified Adverse Reaction, Intermediate, OCULOGYRIC CRISIS, 05/17/19) Problems (1) Suicidal ideation Status: Acute Response to Treatment: Stable, Improving (2) Mood disorder Status: Acute Response to Treatment: Improving Problem Specific Plan: Monitor Clinically Problem Text: Will continue home medications, discontinue Celexa, possibly acid syndrome (3) Autism Status: Chronic (4) Alcohol abuse Status: Chronic Response to Treatment: Stable Plan / VTE VTE Prophylaxis Ordered?: No Plan Diet: Continue Current Activity: Continue Current Anticipated Discharge: Home ([facility] [place]) BIGG PATEL DO Nov 30, 2019 09:22
[2019-11-30 16:03] VITALS: BP 120/60
[2019-11-30] MEDS: ARIPiprazole 10 MG TAB PO SCH (20:34)
[2019-11-30] MEDS: hydrOXYzine 25 MG TAB PO PRN (21:55)
[2019-12-01 06:16] VITALS: BP 119/56
[2019-12-01] MEDS: metFORMIN (GLUCOPHAGE) 500 MG TAB PO SCH (07:51)
[2019-12-01] MEDS: LITHIUM CARBONATE 300 MG **CR** TAB PO SCH ×2 (09:13→21:01)
[2019-12-01] MEDS: ARIPiprazole 15 MG TAB (AbiLIFY) PO SCH (09:13)
[2019-12-01] MEDS: OXcarbazepine 300 MG TAB PO SCH ×2 (09:14→21:02)
[2019-12-01] MEDS: VITAMIN E 400 INTERNATIONAL UNITS CAP PO SCH (09:14)
[2019-12-01] MEDS: PROPRANOLOL 60 MG LA CAP PO SCH (09:14)
--- NOTE | 2019-12-01 09:37 | MHIPNPDOC ---
[facility] Progress Note Progress Note DOS: 12/01/2019 Patient met with today with nurse present for telehealth evaluation due to COVID Crisis Events Overnight: reported vague SI no behaviors Group Attendance::[frequent] Symptom changes (psych ROS): Affective: reports improved fatigue and loss of interest Psychotic:[None today] Anxiety: [no changes] Staff Report: staff reports patient is generally engaged, but definitely appears to be be attention seeking Medical ROS: [Gen: -fevers, chills] [Cardio: -chest pain, palpations] [[place]: -SOB, cough] [GI: -N,V,D,C] : reports vaginal discharge [Neuro: -tremors, msk stiffness] [Derm: -rash] MSE: Vitals: Below General: [Well dressed with good hygiene] Speech: [Spontaneous and fluid] Thought processes: [Linear and logical] Thought content: [Future orientated] Abstract reasoning, and computation: [Intact] Description of associations: autistic chronic Description of abnormal or psychotic thoughts:[Denies any suicidal or homicidal ideation. Denies any auditory or visual hallucinations. Does not appear to be responding to internal stimuli. Does not appear to be endorsing any bizarre or paranoid ideation.] Judgment: chronically limited Insight: chronically limited Orientation: [Alert and orientated 3] Recent and remote memory: [Intact] Attention span and concentration: [Intact] Fund of knowledge: [Adequate] Mood: ["okay"] Affect: [Euthymic with a full range] Vital Signs Vital Signs Date Time Temp Pulse Resp B/P (MAP) Pulse Ox O2 Delivery O2 Flow Rate FiO2 12/01/19 09:14 75 119/56 12/01/19 08:06 Room Air 12/01/19 06:16 98.4 16 11/28/19 06:07 98 Laboratory Data 24H Labs Laboratory Tests 2 11/30/19 17:16: Bedside Glucose (Misc Panel) 89 Current Medications Current Medications Medications (Trade) Dose Ordered Sig/Cory Route PRN Reason Start Time Stop Time Status Last Admin Dose Admin Acetaminophen (Tylenol Tab) 500 mg Q6H PRN PO PAIN 11/26/19 21:00 Acetaminophen (Tylenol Tab) 650 mg Q6HP PRN PO HEADACHE or DISCOMFORT 11/26/19 20:30 Cancel Al Hydrox/Mg Hydrox/Simethicone (Mylanta) 30 ml Q4HP PRN PO HEARTBURN/INDIGESTION 11/26/19 20:30 Aripiprazole (AbiLIFY) 10 mg QHS PO 11/26/19 21:00 11/30/19 20:34 Aripiprazole (AbiLIFY) 15 mg QAM PO 11/27/19 09:00 12/01/19 09:13 Benztropine Mesylate (Cogentin) 0.5 mg Q2D PO 11/28/19 09:00 11/30/19 08:39 Benztropine Mesylate (Cogentin) 0.5 mg QHS PO 11/26/19 21:00 11/30/19 20:34 Citalopram Hydrobromide (CeleXA) 20 mg DAILY PO 11/27/19 09:00 11/30/19 11:06 DC 11/30/19 08:38 Home Med (Med Rec Complete!) ASDIRECTED XX 11/26/19 20:30 11/26/19 20:19 DC Hydroxyzine HCl (Atarax) 25 mg DAILY PRN PO ANXIETY/AGITATION 11/26/19 21:00 11/30/19 21:55 [place] Carbonate (Lithobid Cr) 600 mg Q12H PO 11/26/19 21:00 12/01/19 09:13 Magnesium Hydroxide (Milk Of Magnesia) 30 ml DAILYPRN PRN PO CONSTIPATION 11/26/19 20:30 11/30/19 20:38 Metformin HCl (Glucophage) 500 mg DAILY@0800 PO 11/27/19 08:00 12/01/19 07:51 Oxcarbazepine (Trileptal) 300 mg QAM PO 11/27/19 09:00 12/01/19 09:14 Oxcarbazepine (Trileptal) 600 mg QHS PO 11/26/19 21:00 11/30/19 20:34 Propranolol HCl (Inderal La) 60 mg QAM PO 11/27/19 09:00 12/01/19 09:14 Senna (Senokot) 2 tab Q12HP PRN PO CONSTIPATION 11/29/19 11:45 11/30/19 09:47 Trazodone HCl (Desyrel) 50 mg QHSP PRN PO INSOMNIA 11/26/19 20:30 11/29/19 21:30 Vitamin E (Vitamin E) 400 units DAILY PO 11/27/19 09:00 12/01/19 09:14 Allergies Coded Allergies: cariprazine (Verified Allergy, Intermediate, increased SI, 10/01/19) Penicillins (Verified Allergy, Mild, rash, 10/01/19) hydroxyzine (Verified Allergy, Mild, ITCH/RASH , 10/01/19) CAN TAKE HYDROXYZINE PAMOATE risperidone (Verified Allergy, Mild, RASH, 10/01/19) prednisone (Verified Adverse Reaction, Intermediate, anxiety, agitation, 05/17/19) quetiapine (Verified Adverse Reaction, Intermediate, OCULOGYRIC CRISIS, 05/17/19) Problems (1) Suicidal ideation Status: Resolved Response to Treatment: Stable Problem Text: appears to be generally improved, patient generally does seem to present this more frequently when discharge is discussed suggesting some malingering (2) Mood disorder Status: Acute Response to Treatment: Improving Problem Specific Plan: Monitor Clinically Problem Text: will continue home meds without the Celexa, patient appears to be doing well. (3) Autism Status: Chronic (4) Alcohol abuse Status: Chronic Response to Treatment: Stable Plan / VTE VTE Prophylaxis Ordered?: No Plan Diet: Continue Current Activity: Continue Current Anticipated Discharge: Home (discharge on Friday) BIGG PATEL DO Dec 01, 2019 09:36
[2019-12-01 11:44] LABS: APPEARANCE, URINE CLEAR (CLEAR); BACTERIA, URINE AUTO 1+ (NEGATIVE); BILIRUBIN, URINE AUTO NEGATIVE (NEGATIVE); BLOOD, URINE BLOOD NEGATIVE (NEGATIVE); COLOR, URINE YELLOW (YELLOW); GLUCOSE, URINE (UA) AUTO NEGATIVE (NEGATIVE); KETONE, URINE AUTO NEGATIVE (NEGATIVE); LEUKOCYTE ESTERASE, URINE AUTO NEGATIVE (NEGATIVE); MUCUS, URINE SMALL (NEGATIVE); NITRITE, URINE AUTO NEGATIVE (NEGATIVE); PROTEIN, URINE AUTO NEGATIVE (NEGATIVE); RBC, URINE AUTO 0 /HPF (0-3); SPECIFIC GRAVITY URINE AUTO 1.012 (1.002-1.035); SQUAMOUS EPITHELIAL CELL UR AU 0 /HPF (0-6); UROBILINOGEN, URINE AUTO 0.2 mg/dL (0.0-2.0); WBC, URINE AUTO 0 /HPF (0-3)
[2019-12-01 13:21] LABS: CHLAMYDIA DNA AMPLIFICATION NEGATIVE (NEGATIVE); GC DNA AMPLIFICATION NEGATIVE (NEGATIVE)
[2019-12-01 16:05] VITALS: BP 133/61
[2019-12-01] MEDS: BENZTROPINE 0.5 MG TAB PO SCH (21:01)
[2019-12-01] MEDS: ARIPiprazole 10 MG TAB PO SCH (21:02)
[2019-12-01] MEDS: traZODone 50 MG TAB PO PRN (21:54)
[2019-12-02 06:25] VITALS: BP 134/62
[2019-12-02] MEDS: ARIPiprazole 15 MG TAB (AbiLIFY) PO SCH (08:39)
[2019-12-02] MEDS: BENZTROPINE 0.5 MG TAB PO SCH ×2 (08:39→20:38)
[2019-12-02] MEDS: LITHIUM CARBONATE 300 MG **CR** TAB PO SCH ×2 (08:40→20:38)
[2019-12-02] MEDS: OXcarbazepine 300 MG TAB PO SCH ×2 (08:40→20:39)
[2019-12-02] MEDS: VITAMIN E 400 INTERNATIONAL UNITS CAP PO SCH (08:40)
[2019-12-02] MEDS: metFORMIN (GLUCOPHAGE) 500 MG TAB PO SCH (08:40)
[2019-12-02] MEDS: PROPRANOLOL 60 MG LA CAP PO SCH (08:40)
[2019-12-02 17:46] VITALS: BP 127/60
--- NOTE | 2019-12-02 18:33 | MHIPN ---
DATE: 12/02/2019 I am assigned to her care for today. This is a video assessment, being done because of the virus crisis. Patient is seen in the presence of staff. CHIEF COMPLAINT: Feels anxious. SUBJECTIVE: Indicates is doing okay, but that she has been feeling anxious, at times angry. She is not sure why that happens, but also partly puts it down to the menstrual symptoms. Sleep is fair. Appetite is okay. She says has not had any suicidal thoughts today. Last had them yesterday. MENTAL STATUS EXAMINATION: Neat, cooperative, though a bit guarded possibly. No agitation. No psychomotor retardation. Affect is restricted but reactive overall. She denies any active suicidal thoughts or intents at present. No homicidal ideas or intents. No overt evidence of any psychosis. Cognition is grossly intact. Judgment and insight remain somewhat compromised. ASSESSMENT: 1. Other specified depressive disorder. 2. Autism spectrum disorder by history. PLAN: Continue current care, observation, and the current medication regimen, which includes Cogentin, Abilify, Trileptal. She is encouraged to participate in activities in the unit. Apparently there were plans for her being discharged tomorrow. I would suggest that that is looked at. Unclear if she is stable enough at present. She will be seeing the assigned psychiatrist tomorrow and further recommendations made. VITAL SIGNS: Blood pressure 134/62, pulse 65, temperature 98.
[2019-12-02] MEDS: hydrOXYzine 25 MG TAB PO PRN (20:38)
[2019-12-02] MEDS: ARIPiprazole 10 MG TAB PO SCH (20:40)
[2019-12-03 06:49] VITALS: BP 144/70
[2019-12-03] MEDS: metFORMIN (GLUCOPHAGE) 500 MG TAB PO SCH (07:47)
[2019-12-03] MEDS: OXcarbazepine 300 MG TAB PO SCH ×2 (08:44→20:30)
[2019-12-03] MEDS: ARIPiprazole 15 MG TAB (AbiLIFY) PO SCH (08:44)
[2019-12-03] MEDS: LITHIUM CARBONATE 300 MG **CR** TAB PO SCH ×2 (08:44→20:30)
[2019-12-03] MEDS: VITAMIN E 400 INTERNATIONAL UNITS CAP PO SCH (08:45)
[2019-12-03] MEDS: PROPRANOLOL 60 MG LA CAP PO SCH (08:45)
--- NOTE | 2019-12-03 09:18 | MHIPNPDOC ---
[facility] Progress Note Progress Note DOS: 06/11/2020 Patient met with today with nurse present for telehealth evaluation due to COVID Crisis Events Overnight:[none] Group Attendance::[frequent] Symptom changes (psych ROS): Affective: reports feeling somewhat stressed Psychotic:[None today] Anxiety: stressed Staff Report: euthymic, but still reports ideation, likely malingering Medical ROS: No physical concerns MSE: Vitals: Below General: [Well dressed with good hygiene] Speech: [Spontaneous and fluid] Thought processes: [Linear and logical] Thought content: [Future orientated] Abstract reasoning, and computation: [Intact] Description of associations: [Intact] Description of abnormal or psychotic thoughts: vague SI with no plan Judgment: [limited] Insight: limited Orientation: [Alert and orientated 3] Recent and remote memory: [Intact] Attention span and concentration: [Intact] Fund of knowledge: [Adequate] Mood: ["okay"] Affect: [Euthymic with a full range] Vital Signs Vital Signs Date Time Temp Pulse Resp B/P (MAP) Pulse Ox O2 Delivery O2 Flow Rate FiO2 12/03/19 08:45 73 134/72 12/03/19 06:49 97.4 16 12/02/19 06:25 97 Room Air Laboratory Data 24H Labs Laboratory Tests 2 12/02/19 16:48: Bedside Glucose (Misc Panel) 106H 12/03/19 07:05: Bedside Glucose (Misc Panel) 118H Current Medications Current Medications Medications (Trade) Dose Ordered Sig/Cory Route PRN Reason Start Time Stop Time Status Last Admin Dose Admin Acetaminophen (Tylenol Tab) 500 mg Q6H PRN PO PAIN 11/26/19 21:00 Acetaminophen (Tylenol Tab) 650 mg Q6HP PRN PO HEADACHE or DISCOMFORT 11/26/19 20:30 Cancel Al Hydrox/Mg Hydrox/Simethicone (Mylanta) 30 ml Q4HP PRN PO HEARTBURN/INDIGESTION 11/26/19 20:30 Aripiprazole (AbiLIFY) 10 mg QHS PO 11/26/19 21:00 12/02/19 20:40 Aripiprazole (AbiLIFY) 15 mg QAM PO 11/27/19 09:00 12/03/19 08:44 Benztropine Mesylate (Cogentin) 0.5 mg Q2D PO 11/28/19 09:00 12/02/19 08:39 Benztropine Mesylate (Cogentin) 0.5 mg QHS PO 11/26/19 21:00 12/02/19 20:38 Citalopram Hydrobromide (CeleXA) 20 mg DAILY PO 11/27/19 09:00 11/30/19 11:06 DC 11/30/19 08:38 Home Med (Med Rec Complete!) ASDIRECTED XX 11/26/19 20:30 11/26/19 20:19 DC Hydroxyzine HCl (Atarax) 25 mg DAILY PRN PO ANXIETY/AGITATION 11/26/19 21:00 12/02/19 20:38 [place] Carbonate (Lithobid Cr) 600 mg Q12H PO 11/26/19 21:00 12/03/19 08:44 Magnesium Hydroxide (Milk Of Magnesia) 30 ml DAILYPRN PRN PO CONSTIPATION 11/26/19 20:30 11/30/19 20:38 Metformin HCl (Glucophage) 500 mg DAILY@0800 PO 11/27/19 08:00 12/03/19 07:47 Oxcarbazepine (Trileptal) 300 mg QAM PO 11/27/19 09:00 12/03/19 08:44 Oxcarbazepine (Trileptal) 600 mg QHS PO 11/26/19 21:00 12/02/19 20:39 Propranolol HCl (Inderal La) 60 mg QAM PO 11/27/19 09:00 12/03/19 08:45 Senna (Senokot) 2 tab Q12HP PRN PO CONSTIPATION 11/29/19 11:45 11/30/19 09:47 Trazodone HCl (Desyrel) 50 mg QHSP PRN PO INSOMNIA 11/26/19 20:30 12/01/19 21:54 Vitamin E (Vitamin E) 400 units DAILY PO 11/27/19 09:00 12/03/19 08:45 Allergies Coded Allergies: cariprazine (Verified Allergy, Intermediate, increased SI, 10/01/19) Penicillins (Verified Allergy, Mild, rash, 10/01/19) hydroxyzine (Verified Allergy, Mild, ITCH/RASH , 10/01/19) CAN TAKE HYDROXYZINE PAMOATE risperidone (Verified Allergy, Mild, RASH, 10/01/19) prednisone (Verified Adverse Reaction, Intermediate, anxiety, agitation, 05/17/19) quetiapine (Verified Adverse Reaction, Intermediate, OCULOGYRIC CRISIS, 05/17/19) Problems (1) Suicidal ideation Status: Resolved Response to Treatment: Stable Problem Text: appears to be generally improved, patient generally does seem to present this more frequently when discharge is discussed suggesting some malingering (2) Mood disorder Status: Acute Response to Treatment: Improving Problem Specific Plan: Monitor Clinically Problem Text: will continue home meds without the Celexa, patient appears to be doing well. (3) Autism Status: Chronic (4) Alcohol abuse Status: Chronic Response to Treatment: Stable Plan / VTE VTE Prophylaxis Ordered?: No Plan Diet: Continue Current Activity: Continue Current Anticipated Discharge: Home (Discharge next week at patient request) BIGG PATEL DO Dec 03, 2019 09:18
[2019-12-03 17:17] VITALS: BP 116/62
[2019-12-03] MEDS: ARIPiprazole 10 MG TAB PO SCH (20:29)
[2019-12-03] MEDS: BENZTROPINE 0.5 MG TAB PO SCH (20:29)
[2019-12-03] MEDS: traZODone 50 MG TAB PO PRN (22:05)
[2019-12-04 06:23] VITALS: BP 127/57
[2019-12-04] MEDS: metFORMIN (GLUCOPHAGE) 500 MG TAB PO SCH (07:17)
[2019-12-04] MEDS: VITAMIN E 400 INTERNATIONAL UNITS CAP PO SCH (08:20)
[2019-12-04] MEDS: OXcarbazepine 300 MG TAB PO SCH ×2 (08:20→20:42)
[2019-12-04] MEDS: LITHIUM CARBONATE 300 MG **CR** TAB PO SCH ×2 (08:20→20:43)
[2019-12-04] MEDS: BENZTROPINE 0.5 MG TAB PO SCH ×2 (08:20→20:41)
[2019-12-04] MEDS: PROPRANOLOL 60 MG LA CAP PO SCH (08:21)
[2019-12-04] MEDS: ARIPiprazole 15 MG TAB (AbiLIFY) PO SCH (08:21)
[2019-12-04 16:21] VITALS: BP 136/82
[2019-12-04] MEDS: hydrOXYzine 25 MG TAB PO PRN (20:42)
[2019-12-04] MEDS: ARIPiprazole 10 MG TAB PO SCH (20:42)
[2019-12-05] MEDS ORDERED: LORazepam 1 MG TAB PO ONE (05:00)
[2019-12-05 06:36] VITALS: BP 127/58
[2019-12-05] MEDS: metFORMIN (GLUCOPHAGE) 500 MG TAB PO SCH (07:42)
[2019-12-05] MEDS: ARIPiprazole 15 MG TAB (AbiLIFY) PO SCH (09:06)
[2019-12-05] MEDS: PROPRANOLOL 60 MG LA CAP PO SCH (09:06)
[2019-12-05] MEDS: LITHIUM CARBONATE 300 MG **CR** TAB PO SCH ×2 (09:06→21:15)
[2019-12-05] MEDS: VITAMIN E 400 INTERNATIONAL UNITS CAP PO SCH (09:06)
[2019-12-05] MEDS: OXcarbazepine 300 MG TAB PO SCH ×2 (09:07→21:15)
[2019-12-05 16:23] VITALS: BP 110/60
[2019-12-05] MEDS: BENZTROPINE 0.5 MG TAB PO SCH (21:15)
[2019-12-05] MEDS: ARIPiprazole 10 MG TAB PO SCH (21:15)
[2019-12-05] MEDS: hydrOXYzine 25 MG TAB PO PRN (21:15)
[2019-12-06 07:10] VITALS: BP 122/63
[2019-12-06] MEDS: metFORMIN (GLUCOPHAGE) 500 MG TAB PO SCH (08:54)
[2019-12-06] MEDS: VITAMIN E 400 INTERNATIONAL UNITS CAP PO SCH (08:54)
[2019-12-06] MEDS: OXcarbazepine 300 MG TAB PO SCH (08:54)
[2019-12-06] MEDS: ARIPiprazole 15 MG TAB (AbiLIFY) PO SCH (08:54)
[2019-12-06] MEDS: LITHIUM CARBONATE 300 MG **CR** TAB PO SCH (08:54)
[2019-12-06] MEDS: BENZTROPINE 0.5 MG TAB PO SCH (08:54)
[2019-12-06 08:55] VITALS: BP 143/81
[2019-12-06] MEDS: PROPRANOLOL 60 MG LA CAP PO SCH (08:55)
--- NOTE | 2019-12-06 10:30 | MHDSPDOC ---
[facility] Discharge Summary Discharge Summary DATE OF ADMISSION: Nov 26, 2019 at 20:16 DATE OF DISCHARGE: Dec 06, 2019 at 13:58 DISCHARGE DIAGNOSES: See Problem list below REASON FOR ADMISSION: 34-year-old woman admitted for unusual suicidal ideation with no signs of depression CONSULTANTS INVOLVED:[ None (basic hospitalist screening)] TREATMENT AND PROGRESS ON THE UNIT : Medication changes:. Celexa was removed as it was likely contributing polypharmacy, patient maintained on outpatient medications otherwise Behavior on unit: generally didn't demonstrate any signs of depression, appeared primarily interested in staying for socializing, as she socialized well and was quite engaged, although condescending to other patients Treatment attendance: attended frequently Notable issues on presentation: likely malingering, as she presents primarily to socialize, her home situation likely makes it difficult as her parents have refused to allow her any independence and thus she presents with suicidal ideation regular intervals in order to socialize State on discharge: [stable] DISCHARGE ASSESSMENT: The patient a 34 year old woman, with likely malingering, presented to [facility], where they treated conservatively and subsequently resolved without major issue. Legal status considerations: The patient at the time of discharge did not meet criteria for involuntary admission/extension due to having a baseline mental status exam, baseline insight into the situation, They are engaged in the discharge process, as well as being friendly and amenable in behavioral control and havent been engaging in any observed concerning behavior or ideation recently. They decline voluntary extension/admission at this time and must be discharged in good marta, as Im unable to make a case for holding the patient against their will. They may have historical risk factors of admissions and other interactions with psychiatry however, those are not modifiable from a clinical perspective. The patient will need to be discharged in good marta. MENTAL STATUS EXAMINATION ON DISCHARGE: General: [Well dressed with good hygiene] Speech: [Spontaneous and fluid] Thought processes: [Linear and logical] Thought content: [Future orientated] Abstract reasoning, and computation: [Intact] Description of associations: Chronic autism Description of abnormal or psychotic thoughts:[Denies any suicidal or homicidal ideation. Denies any auditory or visual hallucinations. Does not appear to be responding to internal stimuli. Does not appear to be endorsing any bizarre or paranoid ideation.] Judgment: chronically limited Insight: chronically limited Orientation: [Alert and orientated 3] Recent and remote memory: [Intact] Attention span and concentration: [Intact] Fund of knowledge: [Adequate] Mood: ["okay"] Affect: [Euthymic with a full range] PLAN/FOLLOWUP ARRANGEMENTS: Follow up appointments made (PCP and MH in 5 days of D/C date) and safety plan completed. Safety Planning aspects completed prior to discharge [SAFE ACT reported on initial invol admission in ER] [Family contact completed, educated on safe practices, instructed on removal and mitigation of dangerous means] [RN reviewed crisis hotline information and other aspects to empower patient to access care in interim before next appointment.] The amount of time spent in the coordination of care for this patient was approximately 30 minutes. Vital Signs/I&Os Vital Signs Date Time Temp Pulse Resp B/P (MAP) Pulse Ox O2 Delivery O2 Flow Rate FiO2 12/06/19 09:32 Room Air 12/06/19 08:55 82 143/81 12/06/19 07:10 97.5 18 98 Laboratory Data Labs 24H Laboratory Tests 2 12/05/19 16:51: Bedside Glucose (Misc Panel) 104 12/06/19 07:04: Bedside Glucose (Misc Panel) 123H Medications Scheduled Aripiprazole (Aripiprazole) 15 Mg Tablet, 15 MG PO QAM, (Reported) Aripiprazole (Aripiprazole) 10 Mg Tablet, 10 MG PO QHS, (Reported) Benztropine Mesylate (Benztropine Mesylate) 0.5 Mg Tablet, 0.5 MG PO QHS, (Reported) Benztropine Mesylate (Benztropine Mesylate) 0.5 Mg Tablet, 0.5 MG PO Q2D, (Reported) QAM Calcium Carbonate/Vitamin D3 (Calcium 600-Vit D3 800 Tablet) 1 Each Tablet, 1 TAB PO DAILY, (Reported) [place] Carbonate ([place] Carbonate ER) 300 Mg Tablet.er, 600 MG PO Q12H, (Reported) Metformin HCl (Metformin HCl) 500 Mg Tablet, 500 MG PO DAILY, (Reported) Oxcarbazepine (Oxcarbazepine) 300 Mg Tablet, 300 MG PO QAM, (Reported) Oxcarbazepine (Oxcarbazepine) 600 Mg Tablet, 600 MG PO QHS, (Reported) Propranolol HCl (Propranolol HCl ER) 60 Mg Cap.sa.24h, 60 MG PO QAM, (Reported) Vitamin E (Dl,Tocopheryl Acet) (Vitamin E) 400 Unit Capsule, 400 UNIT PO DAILY, (Reported) Scheduled PRN Acetaminophen (Acetaminophen) 500 Mg Tablet, 500 MG PO Q6H PRN for PAIN, (Reported) Hydroxyzine Pamoate (Hydroxyzine Pamoate) 25 Mg Capsule, 25 MG PO DAILY PRN for ANXIETY/AGITATION, (Reported) PATIENT STATES NOT ALLERGIC TO THIS ONE Melatonin (Melatonin) 3 Mg Tablet, 3 MG PO QHS PRN for SLEEP, (Reported) Allergies Coded Allergies: cariprazine (Verified Allergy, Intermediate, increased SI, 10/01/19) Penicillins (Verified Allergy, Mild, rash, 10/01/19) hydroxyzine (Verified Allergy, Mild, ITCH/RASH , 10/01/19) CAN TAKE HYDROXYZINE PAMOATE risperidone (Verified Allergy, Mild, RASH, 10/01/19) prednisone (Verified Adverse Reaction, Intermediate, anxiety, agitation, 05/17/19) quetiapine (Verified Adverse Reaction, Intermediate, OCULOGYRIC CRISIS, 05/17/19) Problems (1) Suicidal ideation Status: Resolved (2) Mood disorder Status: Chronic Response to Treatment: Stable (3) Autism Status: Chronic (4) Alcohol abuse Status: Chronic Response to Treatment: Stable Plan / VTE VTE Prophylaxis Ordered?: BIGG Gallardo DO Dec 06, 2019 10:30
== END 2019-12-06 13:58 | disposition home or self-care (01) | DRG 753 ==
LOC: M ED 14:53 → M ED INP 20:16 → M PSY 21:20
PROVIDERS: ADMIT Psychiatry & Neurology Addiction Medicine; ATTEND Psychiatry & Neurology Addiction Medicine
DX: F39 Unspecified mood [affective] disorder (principal); R45.851 Suicidal ideations; F10.10 Alcohol abuse, uncomplicated; F84.0 Autistic disorder; Z79.899 Other long term (current) drug therapy; Z88.0 Allergy status to penicillin; Z88.8 Allergy status to other drugs, medicaments and biological substances

== ENCOUNTER 2019-12-20 14:48 | Inpatient (IN) | payer MEDICAID ==
[~2019-12-20] VITALS: Ht 157.5 cm; Wt 95.4 kg
[~2019-12-20 14:48] MED LIST changes: +LITH1TAB PO
[2019-12-20 15:37] LABS: HEMATOCRIT 39.3 % (36.0-47.0); HEMOGLOBIN 12.4 g/dl (12.0-15.5); MEAN CORPUSCULAR HEMOGLOBIN 28.3 pg (27.0-33.0); MEAN CORPUSCULAR HGB CONC 31.6 g/dl (32.0-36.5); MEAN CORPUSCULAR VOLUME 89.7 fl (80.0-96.0); PLATELET COUNT, AUTOMATED 279 10^3/uL (150-450); RED BLOOD COUNT 4.38 10^6/uL (4.00-5.40); WHITE BLOOD COUNT 12.6 10^3/uL (4.0-10.0)
[2019-12-20 16:01] LABS: AMPHETAMINES LEVEL URINE NEGATIVE (NEGATIVE); BARBITURATES URINE NEGATIVE (NEGATIVE); BENZODIAZEPINES URINE NEGATIVE (NEGATIVE); CANNABINOIDS URINE NEGATIVE (NEGATIVE); COCAINE METABOLITE URINE NEGATIVE (NEGATIVE); METHADONE URINE NEGATIVE (NEGATIVE); OPIATES URINE NEGATIVE (NEGATIVE); PHENCYCLIDINE URINE NEGATIVE (NEGATIVE)
[2019-12-20 16:03] LABS: HCG, SERUM QUALITATIVE NEGATIVE (NEGATIVE)
[2019-12-20 16:11] LABS: ACETAMINOPHEN LEVEL < 2.0 UG/ML (10.0-30.0); ALBUMIN 3.8 GM/DL (3.2-5.2); ALT/SGPT 29 U/L (12-78); BILIRUBIN,DIRECT < 0.1 MG/DL (0.0-0.2); BILIRUBIN,TOTAL 0.3 MG/DL (0.2-1.0); BLOOD UREA NITROGEN 13 MG/DL (7-18); CALCIUM LEVEL 9.2 MG/DL (8.5-10.1); CARBON DIOXIDE LEVEL 27 MEQ/L (21-32); CHLORIDE LEVEL 108 MEQ/L (98-107); CREATININE FOR GFR 1.01 MG/DL (0.55-1.30); ETHYL ALCOHOL (ETHANOL) < 0.003 % (0.000-0.010); GLOMERULAR FILTRATION RATE > 60.0 (>60); GLUCOSE, FASTING 95 MG/DL (70-100); LITHIUM LEVEL 0.81 MEQ/L (0.60-1.20); POTASSIUM SERUM 4.1 MEQ/L (3.5-5.1); SALICYLATE LEVEL 1.9 MG/DL (5.0-30.0); SODIUM LEVEL 141 MEQ/L (136-145); TOTAL PROTEIN 7.2 GM/DL (6.4-8.2)
[2019-12-20] MEDS ORDERED: MAALOX 30 ML SUSP *UDC PO PRN (18:00)
[2019-12-20] MEDS ORDERED: MOM 30ML SUSPENSION UDC PO PRN (18:00)
[2019-12-20] MEDS ORDERED: ACETAMINOPHEN 500 MG TAB PO PRN (18:00)
[2019-12-20] MEDS: BENZTROPINE 0.5 MG TAB PO SCH (21:05)
[2019-12-20 22:51] VITALS: BP 144/83
[2019-12-20] MEDS: traZODone 50 MG TAB PO PRN (23:12)
[2019-12-21 06:19] VITALS: BP 139/77
[2019-12-21] MEDS: metFORMIN (GLUCOPHAGE) 500 MG TAB PO SCH ×2 (08:52→17:21)
[2019-12-21] MEDS: BENZTROPINE 0.5 MG TAB PO SCH ×2 (08:52→20:37)
[2019-12-21] MEDS: OXcarbazepine 300 MG TAB PO SCH ×2 (08:52→20:37)
[2019-12-21] MEDS: ARIPiprazole 15 MG TAB (AbiLIFY) PO SCH (08:52)
[2019-12-21] MEDS: PROPRANOLOL 60 MG LA CAP PO SCH (08:53)
[2019-12-21] MEDS: VITAMIN E 400 INTERNATIONAL UNITS CAP PO SCH (08:54)
[2019-12-21] MEDS: LITHIUM CARBONATE 300 MG **CR** TAB PO SCH ×2 (08:54→20:37)
--- NOTE | 2019-12-21 16:34 | HPEPDOC ---
General Date of Admission Dec 20, 2019 at 17:53 Date of Service: Dec 21, 2019 Chief Complaint The patient is a 34-year-old female Who presented to the hospital after having suicidal attempt History of Present Illness Patient is a 34-year-old female with a PMHx Suicidal ideation / Suicidal attempt (Cutting / Stabbing) / Autism spectrum / Schizoaffective disorder / OCD, Depression / Anxiety, DM2, Hx of alcohol abuse who presented to the hospital after she had attempted suicide by cutting herself. Patient denies headache, nausea, vomiting, chest pain, shortness breath, palpitations, constipation, diarrhea, or urinary discomfort. She does report mild abdominal pain. Patient reports her appetite is generally fine. Reports her weight is between 210-215 pounds. Home Medications Scheduled Aripiprazole (Aripiprazole) 15 Mg Tablet, 15 MG PO QAM, (Reported) Aripiprazole (Aripiprazole) 10 Mg Tablet, 10 MG PO QHS, (Reported) Benztropine Mesylate (Benztropine Mesylate) 0.5 Mg Tablet, 0.5 MG PO QHS, (Reported) Benztropine Mesylate (Benztropine Mesylate) 0.5 Mg Tablet, 0.5 MG PO Q2D, (Reported) QAM Calcium Carbonate/Vitamin D3 (Calcium 600-Vit D3 800 Tablet) 1 Each Tablet, 1 TAB PO DAILY, (Reported) Hydroxyzine Pamoate (Hydroxyzine Pamoate) 25 Mg Capsule, 25 MG PO DAILY, (Reported) PATIENT STATES NOT ALLERGIC TO THIS ONE [place] Carbonate ([place]ace Carbonate ER) 300 Mg Tablet.er, 600 MG PO Q12H, (Reported) Metformin HCl (Metformin HCl) 500 Mg Tablet, 500 MG PO BID, (Reported) Oxcarbazepine (Oxcarbazepine) 300 Mg Tablet, 300 MG PO QAM, (Reported) Oxcarbazepine (Oxcarbazepine) 600 Mg Tablet, 600 MG PO QHS, (Reported) Propranolol HCl (Propranolol HCl ER) 60 Mg Cap.sa.24h, 60 MG PO QAM, (Reported) Vitamin E (Dl,Tocopheryl Acet) (Vitamin E) 400 Unit Capsule, 400 UNIT PO DAILY, (Reported) Scheduled PRN Acetaminophen (Acetaminophen) 500 Mg Tablet, 500 MG PO Q6H PRN for PAIN, (Reported) Melatonin (Melatonin) 3 Mg Tablet, 3 MG PO QHS PRN for SLEEP, (Reported) Allergies Coded Allergies: cariprazine (Verified Allergy, Intermediate, increased SI, 10/01/19) Penicillins (Verified Allergy, Mild, rash, 10/01/19) hydroxyzine (Verified Allergy, Mild, ITCH/RASH , 10/01/19) CAN TAKE HYDROXYZINE PAMOATE risperidone (Verified Allergy, Mild, RASH, 10/01/19) prednisone (Verified Adverse Reaction, Intermediate, anxiety, agitation, 05/17/19) quetiapine (Verified Adverse Reaction, Intermediate, OCULOGYRIC CRISIS, 05/17/19) Past Medical History Medical History Suicidal ideation / Suicidal attempt (Cutting / Stabbing) / Autism spectrum / Schizoaffective disorder / OCD, Depression / Anxiety, DM2, Hx of alcohol abuse Surgical History For wisdom teeth extraction (age 19) Family History - Mother with history of asthma - Father with history of diabetes Social History - Denies the use of tobacco or illicit drugs; patient reports that she quit drinking in October - Denies recent travel or sick contacts - Lives with mother and father - Occupation; patient is currently on disability Review of Systems Other systems 10 point review of systems complete, all negative otherwise stated in HPI Vital Signs - Vitals: BP 139/77, HR 69, RR 16, Sat 99%RA, Temp 98.2F - General: Lying in bed, Speaking in full sentences, AAOx3 - HEENT: NC, AT, PERRLA - CVS: RRR, +S1S2 - Lungs: Fair air entry bilaterally, No appreciable wheezing / rales / rhonchi - Abdomen: Soft, Non-distended, Non-tender - Extremities: No lower extremity edema, No calf tenderness - Neuro: No focal motor or sensory deficit - Skin: No visible rashes Plan / VTE VTE Prophylaxis Ordered?: Yes Plan Plan Suicidal ideation / Suicidal attempt (Cutting / Stabbing) - Patient reported trying to harm herself with cutting / stabbing - Currently being managed by psychiatry Autism spectrum / schizoaffective disorder / OCD / Depression / Anxiety - Currently being managed by psychiatry DM2 - Will resume Metformin DVT prophylaxis - c/w early ambulation Female coating supervisor was present through the duration of his history and physical examination Thank you for this consultation; please reconsult as needed BRIDGETT CENTENO MD Dec 21, 2019 16:34
[2019-12-21 17:10] VITALS: BP 137/70
--- NOTE | 2019-12-21 19:02 | MHHPEPDOC ---
General Legal Status: 9.39 Chief Complaint ". History of Present Illness HISTORY OF THE PRESENT ILLNESS: Patient is a 34 -year-old , female, Initial psychiatric evaluation Grace is a 34-year-old who was admitted to our inpatient psychiatric unit--Grace has a history of multiple psychiatric admissions and also a history of at least 3 suicide attempts--- Grace was diagnosed as a child as having autism and throughout her childhood and adulthood she has had difficulty with managing her anxiety and her self-destructive or self harm impulses--she was admitted for this hospitalization because she was having voices telling her to kill herself and she was cutting herself relatively severely--- her last hospitalization here was earlier in the month of November--her previous suicide atte mpts involved overdosing and hanging along with chronic cutting She currently lives with her biological parents but is one day hoping that she'll be able to be placed in a community residence working toward independent living Presenting mental status MENTAL STATUS EXAM Level of consciousness--patient was alert and oriented to time place person Appearance-normal posture, normal dress, no prominent physical abnormalities, alert, cooperative Behavior--like to good, no psychomotor agitation or retardation, no abnormal movements, no tremor Speech--normal rate and rhythm--normal volume Mood--euthymic Affect--normal range and consistent with mood--stable Thought processes--logical and linear , goal directed and coherent--no thought blocking or flight of ideas, no loose associations, no tangential thinking, no word salad, no thought blocking, no circumstantiality Thought content--positive for auditory or visual hallucinations, positive delusional thinking, no thoughts of derealization or depersonalization, no obsessive thinking, no expressed phobias, Cognition--patient was alert and able to focus-sustained appropriate mental attention-memory immediate and short-term memory intact-abstract thinking present, Insight--poor Judgment or the ability to anticipate consequences of behavior poor Patient denied any suicidal ideation or impulses Patient denied any homicidal impulses or ideation Admitting diagnosis Unspecified psychotic illness History of diagnostic category autism Psychiatric Review of Systems Depression (2 or more weeks): depressed mood, anhedonia, feelings of excess/guilt, feelings of worthlesness, difficulty concentrating, suicidal thoughts Dora (4 or more days of): expansive mood, talkativity, pressured, flight of ideas, distractibility, engages in risky behavior Psychosis: auditory hallucination, visual hallucination, delusions PTSD: history of trauma, intrusive memories, mood fluctuations Anxiety: situational anxiety, panic attacks Anxiety/ 6 months or more of: difficulty concentrating, irritability Past Psychiatric History Patient has a history of multiple psychiatric admissions and suicidal behavior. Past Medical History Head Injury: No Seizures: No Hospitalizations: No Surgeries: No Addiction History denies Social History The patient did graduate from high school without special education degree She has not worked in the past for any period of time She currently lives with her biological parents A-FIB/CHADSVASC A-FIB History Current/History of A-Fib/PAF?: No Current PO Anticoag Therapy: No Age/Risk Factor Scoring CHADSVASC: CHADSVASC Response (Comments) Value Age Risk Factor Age 65-74 years old 1 Gender Risk Factor Female 1 Hx of CHF No 0 Hx of HTN No 0 Hx of Stroke/TIA/or VTE No 0 Hx of Diabetes No 0 Hx of Vascular Disease No 0 Total 2 Initial Treatment Plan 1. Patient was admitted on a [9.39] status. 2. Complete history was obtained. 3. With patients permission, family will be contacted and database will be expanded. 4. Patients medication regimen will be reviewed and changed accordingly. 5. Patient will be provided with protected environment. 6. Patient will be treated with individual, group, and milieu therapies. 7. Patient will receive supportive psych-education. 8. Discharge planning will commence immediately. 9. Outpatient follow-up treatment will be strongly recommended. 10. The initial treatment plan will focus initially on: * Depression. * Risk for suicide. ESTIMATED LENGTH OF STAY: - DAYS. TIME SPENT COUNSELING AND COORDINATING INITIAL CARE: minutes. Vital Signs Vital Signs Date Time Temp Pulse Resp B/P (MAP) Pulse Ox O2 Delivery O2 Flow Rate FiO2 12/21/19 17:10 98.0 62 16 137/70 (92) 12/21/19 06:19 99 Room Air Medications Scheduled Aripiprazole (Aripiprazole) 15 Mg Tablet, 15 MG PO QAM, (Reported) Aripiprazole (Aripiprazole) 10 Mg Tablet, 10 MG PO QHS, (Reported) Benztropine Mesylate (Benztropine Mesylate) 0.5 Mg Tablet, 0.5 MG PO QHS, (Reported) Benztropine Mesylate (Benztropine Mesylate) 0.5 Mg Tablet, 0.5 MG PO Q2D, (Reported) QAM Calcium Carbonate/Vitamin D3 (Calcium 600-Vit D3 800 Tablet) 1 Each Tablet, 1 TAB PO DAILY, (Reported) Hydroxyzine Pamoate (Hydroxyzine Pamoate) 25 Mg Capsule, 25 MG PO DAILY, (Reported) PATIENT STATES NOT ALLERGIC TO THIS ONE [place] Carbonate ([place] Carbonate ER) 300 Mg Tablet.er, 600 MG PO Q12H, (Reported) Metformin HCl (Metformin HCl) 500 Mg Tablet, 500 MG PO BID, (Reported) Oxcarbazepine (Oxcarbazepine) 300 Mg Tablet, 300 MG PO QAM, (Reported) Oxcarbazepine (Oxcarbazepine) 600 Mg Tablet, 600 MG PO QHS, (Reported) Propranolol HCl (Propranolol HCl ER) 60 Mg Cap.sa.24h, 60 MG PO QAM, (Reported) Vitamin E (Dl,Tocopheryl Acet) (Vitamin E) 400 Unit Capsule, 400 UNIT PO DAILY, (Reported) Scheduled PRN Acetaminophen (Acetaminophen) 500 Mg Tablet, 500 MG PO Q6H PRN for PAIN, (Reported) Melatonin (Melatonin) 3 Mg Tablet, 3 MG PO QHS PRN for SLEEP, (Reported) Allergies Coded Allergies: cariprazine (Verified Allergy, Intermediate, increased SI, 10/01/19) Penicillins (Verified Allergy, Mild, rash, 10/01/19) hydroxyzine (Verified Allergy, Mild, ITCH/RASH , 10/01/19) CAN TAKE HYDROXYZINE PAMOATE risperidone (Verified Allergy, Mild, RASH, 10/01/19) prednisone (Verified Adverse Reaction, Intermediate, anxiety, agitation, 05/17/19) quetiapine (Verified Adverse Reaction, Intermediate, OCULOGYRIC CRISIS, 05/17/19) Angel Dodson MD Dec 21, 2019 19:02
[2019-12-21] MEDS ORDERED: ARIPiprazole 10 MG TAB PO SCH (21:00)
[2019-12-22 06:44] VITALS: BP 133/58
[2019-12-22] MEDS: VITAMIN E 400 INTERNATIONAL UNITS CAP PO SCH (08:24)
[2019-12-22] MEDS: LITHIUM CARBONATE 300 MG **CR** TAB PO SCH ×2 (08:24→21:05)
[2019-12-22] MEDS: PROPRANOLOL 60 MG LA CAP PO SCH (08:25)
[2019-12-22] MEDS: metFORMIN (GLUCOPHAGE) 500 MG TAB PO SCH ×2 (08:25→18:00)
[2019-12-22] MEDS: ARIPiprazole 15 MG TAB (AbiLIFY) PO SCH ×2 (08:25→21:04)
[2019-12-22] MEDS: OXcarbazepine 300 MG TAB PO SCH ×2 (08:25→21:05)
[2019-12-22] MEDS ORDERED: hydrOXYzine 50 MG TAB PO PRN (16:15)
[2019-12-22 16:49] VITALS: BP 129/59
--- NOTE | 2019-12-22 20:20 | MHIPNPDOC ---
[facility] Progress Note Progress Note DATE OF SERVICE: 12/22/19 Grace was seen for medical psychotherapy today 20 minutes was spent with the patient Patient was seen for a medical psychotherapy session in which the patient's treatment plan was reviewed, mental status exam performed, vital signs reviewed, current medical conditions reviewed, and treatment goals were reviewed This visit was performed as a telehealth visit utilizing an interactive a/v telecommunications system or telephone that permitted real time communication between myself and the patient--permission/consent from patient/guardian was obtained At this point just continues to struggle with confused thinking and self- destructive impulses and remains under close observation from nursing staff with regard to her behaviors and unstable emotional state Her mental status is that she does have some pressured speech racing thoughts complaints of suicidal impulses complains that she is having auditory hallucinations of a command nature and continues to have delusional thinking concerning her family--her affect is inappropriate her mood is tense No changes in treatment plan or medication today I will see the patient again tomorrow Vital Signs Vital Signs Date Time Temp Pulse Resp B/P (MAP) Pulse Ox O2 Delivery O2 Flow Rate FiO2 12/22/19 16:49 98.4 71 18 129/59 (82) Room Air 12/21/19 06:19 99 Current Medications Current Medications Medications (Trade) Dose Ordered Sig/Cory Route PRN Reason Start Time Stop Time Status Last Admin Dose Admin Acetaminophen (Tylenol Tab) 500 mg Q6HP PRN PO PAIN 12/20/19 18:00 Al Hydrox/Mg Hydrox/Simethicone (Mylanta) 30 ml Q4HP PRN PO HEARTBURN/INDIGESTION 12/20/19 18:00 Aripiprazole (AbiLIFY) 10 mg QHS PO 12/21/19 21:00 12/22/19 16:01 DC 12/21/19 20:37 Aripiprazole (AbiLIFY) 15 mg QAM PO 12/21/19 09:00 12/22/19 08:25 Aripiprazole (AbiLIFY) 15 mg QHS PO 12/22/19 21:00 Benztropine Mesylate (Cogentin) 0.5 mg Q2D PO 12/21/19 09:00 12/21/19 08:52 Benztropine Mesylate (Cogentin) 0.5 mg QHS PO 12/20/19 21:00 12/21/19 20:37 Home Med (Med Rec Complete!) ASDIRECTED XX 12/20/19 17:45 12/20/19 17:35 DC Hydroxyzine HCl (Atarax) 50 mg Q6HP PRN PO ANXIETY 12/22/19 16:15 12/22/19 16:26 DC Hydroxyzine HCl (Atarax) 50 mg Q6HP PRN PO ANXIETY/AGITATION 12/22/19 16:45 [place] Carbonate (Lithobid Cr) 600 mg Q12H PO 12/21/19 09:00 12/22/19 08:24 Magnesium Hydroxide (Milk Of Magnesia) 30 ml DAILYPRN PRN PO CONSTIPATION 12/20/19 18:00 Metformin HCl (Glucophage) 500 mg BIDWM PO 12/21/19 08:00 12/22/19 08:25 Miscellaneous (Unresolved Clarification Entry) SEE LABEL COMMENTS DAILY XX 12/22/19 09:00 12/22/19 16:26 DC Oxcarbazepine (Trileptal) 300 mg QAM PO 12/21/19 09:00 12/22/19 08:25 Oxcarbazepine (Trileptal) 600 mg QHS PO 12/21/19 21:00 12/21/19 20:37 Propranolol HCl (Inderal La) 60 mg QAM PO 12/21/19 09:00 12/22/19 08:25 Trazodone HCl (Desyrel) 50 mg QHSP PRN PO INSOMNIA 12/20/19 18:00 12/20/19 23:12 Vitamin E (Vitamin E) 400 units DAILY PO 12/21/19 09:00 12/22/19 08:24 Allergies Coded Allergies: cariprazine (Verified Allergy, Intermediate, increased SI, 10/01/19) Penicillins (Verified Allergy, Mild, rash, 10/01/19) risperidone (Verified Allergy, Mild, RASH, 10/01/19) prednisone (Verified Adverse Reaction, Intermediate, anxiety, agitation, 05/17/19) quetiapine (Verified Adverse Reaction, Intermediate, OCULOGYRIC CRISIS, 05/17/19) Angel Dodson MD Dec 22, 2019 20:20
[2019-12-22] MEDS: BENZTROPINE 0.5 MG TAB PO SCH (21:04)
[2019-12-22] MEDS: hydrOXYzine 50 MG TAB PO PRN (21:05)
[2019-12-23 06:28] VITALS: BP 118/60
[2019-12-23] MEDS: VITAMIN E 400 INTERNATIONAL UNITS CAP PO SCH (08:45)
[2019-12-23] MEDS: PROPRANOLOL 60 MG LA CAP PO SCH (08:47)
[2019-12-23] MEDS: ARIPiprazole 15 MG TAB (AbiLIFY) PO SCH ×2 (08:48→20:31)
[2019-12-23] MEDS: OXcarbazepine 300 MG TAB PO SCH ×2 (08:48→20:32)
[2019-12-23] MEDS: LITHIUM CARBONATE 300 MG **CR** TAB PO SCH ×2 (08:48→20:32)
[2019-12-23] MEDS: BENZTROPINE 0.5 MG TAB PO SCH ×2 (08:48→20:31)
[2019-12-23] MEDS: metFORMIN (GLUCOPHAGE) 500 MG TAB PO SCH ×2 (08:49→17:19)
[2019-12-23 16:58] VITALS: BP 128/54
--- NOTE | 2019-12-23 19:16 | MHIPNPDOC ---
[facility] Progress Note Progress Note DATE OF SERVICE: 12/23/19 HISTORY: . Time spent with patient and collateral activity 20 minutes Grace was seen for medical psychotherapy Grace is now 34 years of age and she currently is a patient on our inpatient psychiatric unit--she has numerous psychiatric admissions in the past Her current diagnosis is a depressive disorder along with borderline personality disorder Her current medication includes Abilify a total of 25 mg--this was increased to 15 mg twice daily today because of persistent psychotic phenomena She is also maintained on Trileptal 600 mg at night and 300 mg in the morning She is also on lithium 600 mg twice a day Her mental status She is alert and oriented to time place and person She shows absolutely no insight into her illness Her mood was depressed Affect was inappropriate Thoughts were confused and rambling as was her speech No changes in medication or treatment plan today Patient was seen for a medical psychotherapy session in which the patient's treatment plan was reviewed, mental status exam performed, vital signs reviewed, current medical conditions reviewed, and treatment goals were reviewed This visit was performed as a telehealth visit utilizing an interactive a/v telecommunications system or telephone that permitted real time communication between myself and the patient--permission/consent from patient/guardian was obtained I will see her again tomorrow Vital Signs Vital Signs Date Time Temp Pulse Resp B/P (MAP) Pulse Ox O2 Delivery O2 Flow Rate FiO2 12/23/19 16:58 98.0 65 18 128/54 (78) 12/23/19 06:28 Room Air 12/21/19 06:19 99 Current Medications Current Medications Medications (Trade) Dose Ordered Sig/Cory Route PRN Reason Start Time Stop Time Status Last Admin Dose Admin Acetaminophen (Tylenol Tab) 500 mg Q6HP PRN PO PAIN 12/20/19 18:00 Al Hydrox/Mg Hydrox/Simethicone (Mylanta) 30 ml Q4HP PRN PO HEARTBURN/INDIGESTION 12/20/19 18:00 Aripiprazole (AbiLIFY) 10 mg QHS PO 12/21/19 21:00 12/22/19 16:01 DC 12/21/19 20:37 Aripiprazole (AbiLIFY) 15 mg QAM PO 12/21/19 09:00 12/23/19 08:48 Aripiprazole (AbiLIFY) 15 mg QHS PO 12/22/19 21:00 12/22/19 21:04 Benztropine Mesylate (Cogentin) 0.5 mg Q2D PO 12/21/19 09:00 12/23/19 08:48 Benztropine Mesylate (Cogentin) 0.5 mg QHS PO 12/20/19 21:00 12/22/19 21:04 Home Med (Med Rec Complete!) ASDIRECTED XX 12/20/19 17:45 12/20/19 17:35 DC Hydroxyzine HCl (Atarax) 50 mg Q6HP PRN PO ANXIETY 12/22/19 16:15 12/22/19 16:26 DC Hydroxyzine HCl (Atarax) 50 mg Q6HP PRN PO ANXIETY/AGITATION 12/22/19 16:45 12/22/19 21:05 [place] Carbonate (Lithobid Cr) 600 mg Q12H PO 12/21/19 09:00 12/23/19 08:48 Magnesium Hydroxide (Milk Of Magnesia) 30 ml DAILYPRN PRN PO CONSTIPATION 12/20/19 18:00 Metformin HCl (Glucophage) 500 mg BIDWM PO 12/21/19 08:00 12/23/19 17:19 Miscellaneous (Unresolved Clarification Entry) SEE LABEL COMMENTS DAILY XX 12/22/19 09:00 12/22/19 16:26 DC Oxcarbazepine (Trileptal) 300 mg QAM PO 12/21/19 09:00 12/23/19 08:48 Oxcarbazepine (Trileptal) 600 mg QHS PO 12/21/19 21:00 12/22/19 21:05 Propranolol HCl (Inderal La) 60 mg QAM PO 12/21/19 09:00 12/23/19 08:47 Trazodone HCl (Desyrel) 50 mg QHSP PRN PO INSOMNIA 12/20/19 18:00 12/20/19 23:12 Vitamin E (Vitamin E) 400 units DAILY PO 12/21/19 09:00 12/23/19 08:45 Allergies Coded Allergies: cariprazine (Verified Allergy, Intermediate, increased SI, 10/01/19) Penicillins (Verified Allergy, Mild, rash, 10/01/19) risperidone (Verified Allergy, Mild, RASH, 10/01/19) prednisone (Verified Adverse Reaction, Intermediate, anxiety, agitation, 05/17/19) quetiapine (Verified Adverse Reaction, Intermediate, OCULOGYRIC CRISIS, 05/17/19) Angel Dodson MD Dec 23, 2019 19:16
[2019-12-23] MEDS: hydrOXYzine 50 MG TAB PO PRN (20:32)
[2019-12-23] MEDS: diphenhydrAMINE 50MG CAP PO PRN (22:07)
[2019-12-24 06:48] VITALS: BP 123/82
[2019-12-24] MEDS: metFORMIN (GLUCOPHAGE) 500 MG TAB PO SCH ×2 (08:36→17:55)
[2019-12-24] MEDS: OXcarbazepine 300 MG TAB PO SCH ×2 (08:36→20:11)
[2019-12-24] MEDS: PROPRANOLOL 60 MG LA CAP PO SCH (08:36)
[2019-12-24] MEDS: ARIPiprazole 15 MG TAB (AbiLIFY) PO SCH ×2 (08:36→20:10)
[2019-12-24] MEDS: VITAMIN E 400 INTERNATIONAL UNITS CAP PO SCH (08:36)
[2019-12-24] MEDS: LITHIUM CARBONATE 300 MG **CR** TAB PO SCH ×2 (08:36→20:10)
--- NOTE | 2019-12-24 17:46 | MHIPNPDOC ---
[facility] Progress Note Progress Note DATE OF SERVICE: 12/24/19 Grace was seen on medical psychotherapy Patient was seen for a medical psychotherapy session in which the patient's treatment plan was reviewed, mental status exam performed, vital signs reviewed, current medical conditions reviewed, and treatment goals were reviewed This visit was performed as a telehealth visit utilizing an interactive a/v telecommunications system or telephone that permitted real time communication between myself and the patient--permission/consent from patient/guardian was obtained Grace continues to struggle with self-destructive thoughts but is able to contract for safety on the unit Her mental status at this point is stabilizing but she remains chronically depressed and anxious She is compliant with her medication and continues to take the Abilify Trileptal and lithium for mood stabilization MENTAL STATUS EXAM Level of consciousness--patient was alert and oriented to time place person Appearance-normal posture, normal dress, no prominent physical abnormalities, alert, cooperative Behavior--like to good, no psychomotor agitation or retardation, no abnormal movements, no tremor Speech--normal rate and rhythm--normal volume Mood--euthymic Affect--normal range and consistent with mood--stable Thought processes--logical and linear , goal directed and coherent--no thought blocking or flight of ideas, no loose associations, no tangential thinking, no word salad, no thought blocking, no circumstantiality Thought content--no ideas of reference no auditory or visual hallucinations, no delusional thinking, no thoughts of derealization or depersonalization, no obsessive thinking, no expressed phobias, Cognition--patient was alert and able to focus-sustained appropriate mental attention-memory immediate and short-term memory intact-abstract thinking present, Insight---fair Judgment or the ability to anticipate consequences of behavior intact Patient denied any suicidal ideation or impulses Patient denied any homicidal impulses or ideation No change in treatment plan today Vital Signs Vital Signs Date Time Temp Pulse Resp B/P (MAP) Pulse Ox O2 Delivery O2 Flow Rate FiO2 12/24/19 08:36 78 123/82 12/24/19 06:48 98.7 12 Room Air 12/21/19 06:19 99 Current Medications Current Medications Medications (Trade) Dose Ordered Sig/Cory Route PRN Reason Start Time Stop Time Status Last Admin Dose Admin Acetaminophen (Tylenol Tab) 500 mg Q6HP PRN PO PAIN 12/20/19 18:00 Al Hydrox/Mg Hydrox/Simethicone (Mylanta) 30 ml Q4HP PRN PO HEARTBURN/INDIGESTION 12/20/19 18:00 Aripiprazole (AbiLIFY) 10 mg QHS PO 12/21/19 21:00 12/22/19 16:01 DC 12/21/19 20:37 Aripiprazole (AbiLIFY) 15 mg QAM PO 12/21/19 09:00 12/24/19 08:36 Aripiprazole (AbiLIFY) 15 mg QHS PO 12/22/19 21:00 12/23/19 20:31 Benztropine Mesylate (Cogentin) 0.5 mg Q2D PO 12/21/19 09:00 12/23/19 08:48 Benztropine Mesylate (Cogentin) 0.5 mg QHS PO 12/20/19 21:00 12/23/19 20:31 Diphenhydramine HCl (Benadryl) 50 mg TIDP PRN PO ANXIETY 12/23/19 22:10 12/23/19 22:07 Home Med (Med Rec Complete!) ASDIRECTED XX 12/20/19 17:45 12/20/19 17:35 DC Hydroxyzine HCl (Atarax) 50 mg Q6HP PRN PO ANXIETY 12/22/19 16:15 12/22/19 16:26 DC Hydroxyzine HCl (Atarax) 50 mg Q6HP PRN PO ANXIETY/AGITATION 12/22/19 16:45 12/23/19 20:32 [place] Carbonate (Lithobid Cr) 600 mg Q12H PO 12/21/19 09:00 12/24/19 08:36 Magnesium Hydroxide (Milk Of Magnesia) 30 ml DAILYPRN PRN PO CONSTIPATION 12/20/19 18:00 Metformin HCl (Glucophage) 500 mg BIDWM PO 12/21/19 08:00 12/24/19 08:36 Miscellaneous (Unresolved Clarification Entry) SEE LABEL COMMENTS DAILY XX 12/22/19 09:00 12/22/19 16:26 DC Oxcarbazepine (Trileptal) 300 mg QAM PO 12/21/19 09:00 12/24/19 08:36 Oxcarbazepine (Trileptal) 600 mg QHS PO 12/21/19 21:00 12/23/19 20:32 Propranolol HCl (Inderal La) 60 mg QAM PO 12/21/19 09:00 12/24/19 08:36 Trazodone HCl (Desyrel) 50 mg QHSP PRN PO INSOMNIA 12/20/19 18:00 12/20/19 23:12 Vitamin E (Vitamin E) 400 units DAILY PO 12/21/19 09:00 12/24/19 08:36 Allergies Coded Allergies: cariprazine (Verified Allergy, Intermediate, increased SI, 10/01/19) Penicillins (Verified Allergy, Mild, rash, 10/01/19) risperidone (Verified Allergy, Mild, RASH, 10/01/19) prednisone (Verified Adverse Reaction, Intermediate, anxiety, agitation, 05/17/19) quetiapine (Verified Adverse Reaction, Intermediate, OCULOGYRIC CRISIS, 05/17/19) Angel Dodson MD Dec 24, 2019 17:46
[2019-12-24 18:14] VITALS: BP 134/71
[2019-12-24] MEDS: traZODone 50 MG TAB PO PRN (20:10)
[2019-12-24] MEDS: hydrOXYzine 50 MG TAB PO PRN (20:10)
[2019-12-24] MEDS: BENZTROPINE 0.5 MG TAB PO SCH (20:11)
[2019-12-25 06:49] VITALS: BP 100/46
[2019-12-25] MEDS: metFORMIN (GLUCOPHAGE) 500 MG TAB PO SCH ×2 (08:26→17:15)
[2019-12-25] MEDS: VITAMIN E 400 INTERNATIONAL UNITS CAP PO SCH (08:26)
[2019-12-25] MEDS: PROPRANOLOL 60 MG LA CAP PO SCH (08:27)
[2019-12-25] MEDS: ARIPiprazole 15 MG TAB (AbiLIFY) PO SCH ×2 (08:27→20:49)
[2019-12-25] MEDS: BENZTROPINE 0.5 MG TAB PO SCH ×2 (08:27→20:49)
[2019-12-25] MEDS: LITHIUM CARBONATE 300 MG **CR** TAB PO SCH ×2 (08:27→20:49)
[2019-12-25] MEDS: OXcarbazepine 300 MG TAB PO SCH ×2 (08:28→20:49)
[2019-12-25 15:51] VITALS: BP 132/64
[2019-12-25] MEDS: diphenhydrAMINE 50MG CAP PO PRN (19:24)
[2019-12-25] MEDS: traZODone 50 MG TAB PO PRN (23:14)
[2019-12-26 05:53] VITALS: BP 129/55
[2019-12-26] MEDS: metFORMIN (GLUCOPHAGE) 500 MG TAB PO SCH ×2 (08:52→17:36)
[2019-12-26] MEDS: ARIPiprazole 15 MG TAB (AbiLIFY) PO SCH ×2 (08:52→20:06)
[2019-12-26] MEDS: PROPRANOLOL 60 MG LA CAP PO SCH (08:52)
[2019-12-26] MEDS: VITAMIN E 400 INTERNATIONAL UNITS CAP PO SCH (08:52)
[2019-12-26] MEDS: OXcarbazepine 300 MG TAB PO SCH ×2 (08:52→20:07)
[2019-12-26] MEDS: LITHIUM CARBONATE 300 MG **CR** TAB PO SCH ×2 (08:52→20:07)
[2019-12-26 16:03] VITALS: BP 130/75
[2019-12-26] MEDS: BENZTROPINE 0.5 MG TAB PO SCH (20:06)
[2019-12-26] MEDS: diphenhydrAMINE 50MG CAP PO PRN (20:06)
[2019-12-27 06:24] VITALS: BP 119/56
[2019-12-27] MEDS: metFORMIN (GLUCOPHAGE) 500 MG TAB PO SCH ×2 (08:55→17:03)
[2019-12-27] MEDS: LITHIUM CARBONATE 300 MG **CR** TAB PO SCH ×2 (08:57→20:39)
[2019-12-27] MEDS: VITAMIN E 400 INTERNATIONAL UNITS CAP PO SCH (08:57)
[2019-12-27] MEDS: PROPRANOLOL 60 MG LA CAP PO SCH (08:57)
[2019-12-27] MEDS: OXcarbazepine 300 MG TAB PO SCH ×2 (08:57→20:39)
[2019-12-27] MEDS: BENZTROPINE 0.5 MG TAB PO SCH ×2 (08:57→20:37)
[2019-12-27] MEDS: ARIPiprazole 15 MG TAB (AbiLIFY) PO SCH ×2 (08:57→20:38)
[2019-12-27 16:39] VITALS: BP 130/60
[2019-12-27] MEDS: diphenhydrAMINE 50MG CAP PO PRN (17:04)
--- NOTE | 2019-12-27 18:04 | MHIPNPDOC ---
[facility] Progress Note Progress Note DATE OF SERVICE: 12/27/19 HISTORY: As per previous notes: "Pt presents to ED with superficial cuts to her left wrist via ambulance. Pt reports she cut her wrists today in an attempt to end her life. Pt reports she has had three attempts of suicide this month, which included strangling, hanging, and that today she took her 8:30pm medications at 1:30pm and cut her wrists. Pt reports current stressors include arguing with her parents, which is what she reports prompted todays suicide attempt, her cat passing away in July, and that she is nervous about getting ready to move out of her parents home into a residential facility. Pt reports auditory hallucinations, which she describes as a male's voice telling her to kill herself. Pt reports poor appetite and sleep, and feeling anxious and depressed. Pt denies h/i, but has a history of self harm, and s/i. Pt reports she has experienced s/i "forever". Pt has a history of schizoaffective disorder, ASD, and impulse control disorder. [facility] which was November 26 [facility] to [facility] due to s/i. Pt is pleasant and appears cheerful, singing and laughing, however pt states she cannot CFS and that she believes she would hurt herself if she went home, stating she cannot CFS. "Mom and dad don't think I'm safe to go home and I don't either." VITAL SIGNS: See below. NEW TEST RESULTS: See below. CURRENT MEDICATIONS: See below. MENTAL STATUS EXAMINATION: Patient is a 34-year old female, who is dressed in hospital clothes, fair eye contact. Speech: Is normal in r/t/v. Language skills are good. Thought processes including: linear and coherent. Thought content: negative for suicidal thoughts, negative for homicidal thoughts, positive for paranoid thoughts Description of associations: not loose. Description of abnormal or psychotic thoughts: denies bizarre, grandiose but admits paranoid thoughts. she is not responding to internal stimuli, she denies SI/HI Judgment: poor Insight: poor Orientation: x 3. Recent and remote memory: fair. Attention span and concentration: fair. Language: adequate. Fund of knowledge: below average. Mood: anxious. Affect: congruent with mood, mildly constricted. DIAGNOSES: 1. Schizoaffective disorder 2. Autism Spectrum Disorder. 3. ALISTAIR 4. OCD ASSESSMENT: The patient is still very anxious and she asks several times when is she going to be discharged. The fact is that she is not ready yet, she says she is still anxious and depressed but she says she doesn't think she would try to commit suicide ever again. Minutes later she says she still struggles with suicidal thoughts, that they come and go and she says she doesn't have any plans at this time. She reports she has discussed with her account planner going to a "residence, not a residential program" so that she can stay away from home since she doesn't want to cause more problems to her parents. She says at a certain point that she is not paranoid about her parents but that "it is my paranoia, it has nothing to do with them because they have done nothing wrong to me". her mother called the Unit and she said her daughter is allergic to Hydroxyzine hcl but she is not allergic to hydroxyzine pamoate. The pharmacy doesn't have hydroxyzine pamoate, so, I will discontinue Hydroxyzine hcl and will increase her Benadryl dose during the day. MANAGEMENT PLAN: Continue with the same treatment plan, increase Benadyl PRN ( she won't be taking hydroxyzine hcl as mother has said she is allergic to it) TIME SPENT: 20 minutes. Vital Signs Vital Signs Date Time Temp Pulse Resp B/P (MAP) Pulse Ox O2 Delivery O2 Flow Rate FiO2 12/27/19 08:57 82 130/73 12/27/19 06:24 96.9 16 12/26/19 05:53 99 Room Air Current Medications Current Medications Medications (Trade) Dose Ordered Sig/Cory Route PRN Reason Start Time Stop Time Status Last Admin Dose Admin Acetaminophen (Tylenol Tab) 500 mg Q6HP PRN PO PAIN 12/20/19 18:00 Al Hydrox/Mg Hydrox/Simethicone (Mylanta) 30 ml Q4HP PRN PO HEARTBURN/INDIGESTION 12/20/19 18:00 Aripiprazole (AbiLIFY) 10 mg QHS PO 12/21/19 21:00 12/22/19 16:01 DC 12/21/19 20:37 Aripiprazole (AbiLIFY) 15 mg QAM PO 12/21/19 09:00 12/27/19 08:57 Aripiprazole (AbiLIFY) 15 mg QHS PO 12/22/19 21:00 12/26/19 20:06 Benztropine Mesylate (Cogentin) 0.5 mg Q2D PO 12/21/19 09:00 12/27/19 08:57 Benztropine Mesylate (Cogentin) 0.5 mg QHS PO 12/20/19 21:00 12/26/19 20:06 Diphenhydramine HCl (Benadryl) 50 mg TIDP PRN PO ANXIETY 12/23/19 22:10 12/26/19 20:06 Home Med (Med Rec Complete!) ASDIRECTED XX 12/20/19 17:45 12/20/19 17:35 DC Hydroxyzine HCl (Atarax) 50 mg Q6HP PRN PO ANXIETY 12/22/19 16:15 12/22/19 16:26 DC Hydroxyzine HCl (Atarax) 50 mg Q6HP PRN PO ANXIETY/AGITATION 12/22/19 16:45 12/24/19 20:10 [place] Carbonate (Lithobid Cr) 600 mg Q12H PO 12/21/19 09:00 12/27/19 08:57 Magnesium Hydroxide (Milk Of Magnesia) 30 ml DAILYPRN PRN PO CONSTIPATION 12/20/19 18:00 Metformin HCl (Glucophage) 500 mg BIDWM PO 12/21/19 08:00 12/27/19 08:55 Miscellaneous (Unresolved Clarification Entry) SEE LABEL COMMENTS DAILY XX 12/22/19 09:00 12/22/19 16:26 DC Oxcarbazepine (Trileptal) 300 mg QAM PO 12/21/19 09:00 12/27/19 08:57 Oxcarbazepine (Trileptal) 600 mg QHS PO 12/21/19 21:00 12/26/19 20:07 Propranolol HCl (Inderal La) 60 mg QAM PO 12/21/19 09:00 12/27/19 08:57 Trazodone HCl (Desyrel) 50 mg QHSP PRN PO INSOMNIA 12/20/19 18:00 12/25/19 23:14 Vitamin E (Vitamin E) 400 units DAILY PO 12/21/19 09:00 12/27/19 08:57 Allergies Coded Allergies: cariprazine (Verified Allergy, Intermediate, increased SI, 10/01/19) Penicillins (Verified Allergy, Mild, rash, 10/01/19) risperidone (Verified Allergy, Mild, RASH, 10/01/19) prednisone (Verified Adverse Reaction, Intermediate, anxiety, agitation, 05/17/19) quetiapine (Verified Adverse Reaction, Intermediate, OCULOGYRIC CRISIS, 05/17/19) PRIMO GOLDSTEIN MD Dec 27, 2019 16:29
[2019-12-28 07:04] VITALS: BP 154/82
[2019-12-28] MEDS: metFORMIN (GLUCOPHAGE) 500 MG TAB PO SCH ×2 (07:39→17:16)
[2019-12-28] MEDS: LITHIUM CARBONATE 300 MG **CR** TAB PO SCH ×2 (08:44→21:12)
[2019-12-28] MEDS: diphenhydrAMINE 50MG CAP PO PRN ×3 (08:44→21:11)
[2019-12-28] MEDS: OXcarbazepine 300 MG TAB PO SCH ×2 (08:45→21:11)
[2019-12-28] MEDS: PROPRANOLOL 60 MG LA CAP PO SCH (08:45)
[2019-12-28] MEDS: VITAMIN E 400 INTERNATIONAL UNITS CAP PO SCH (08:45)
[2019-12-28] MEDS: ARIPiprazole 15 MG TAB (AbiLIFY) PO SCH ×2 (08:46→21:11)
[2019-12-28 16:42] VITALS: BP 134/78
--- NOTE | 2019-12-28 20:15 | MHIPNPDOC ---
[facility] Progress Note Progress Note DATE OF SERVICE: 12/28/19 HISTORY: As per previous notes: "Pt presents to ED with superficial cuts to her left wrist via ambulance. Pt reports she cut her wrists today in an attempt to end her life. Pt reports she has had three attempts of suicide this month, which included strangling, hanging, and that today she took her 8:30pm medications at 1:30pm and cut her wrists. Pt reports current stressors include arguing with her parents, which is what she reports prompted todays suicide attempt, her cat passing away in July, and that she is nervous about getting ready to move out of her parents home into a residential facility. Pt reports auditory hallucinations, which she describes as a male's voice telling her to kill herself. Pt reports poor appetite and sleep, and feeling anxious and depressed. Pt denies h/i, but has a history of self harm, and s/i. Pt reports she has experienced s/i "forever". Pt has a history of schizoaffective disorder, ASD, and impulse control disorder. [facility], [facility] recent of which was November 26 2019 to [facility] due to s/i. Pt is pleasant and appears cheerful, singing and laughing, however pt states she cannot CFS and that she believes she would hurt herself if she went home, stating she cannot CFS. "Mom and dad don't think I'm safe to go home and I don't either." VITAL SIGNS: See below. NEW TEST RESULTS: See below. CURRENT MEDICATIONS: See below. MENTAL STATUS EXAMINATION: Patient is a 34-year old female, who is dressed in hospital clothes, fair eye contact. Speech: Is normal in r/t/v, spontaneous and fluent Language skills are good. Thought processes including: linear but not necessarily coherent. Thought content: POSITIVE for passive suicidal thoughts, negative for homicidal thoughts, she still reports some paranoid thoughts, guilty thoughts about having a difficult relationship with her parents Description of associations: not loose. Description of abnormal or psychotic thoughts: denies bizarre, grandiose but admits paranoid thoughts. She is not responding to internal stimuli, she denies HI but reports thoughts and desires to end her life without a specific plan Judgment: poor Insight: poor Orientation: x 3. Recent and remote memory: fair. Attention span and concentration: fair. Language: adequate. Fund of knowledge: below average. Mood: anxious/depressed. Affect: congruent with mood, mildly constricted. DIAGNOSES: 1. Schizoaffective disorder 2. Autism Spectrum Disorder. 3. ALISTAIR 4. OCD ASSESSMENT:she's less anxious today but she is able to speak about her suicidal thoughts and the way she describes them is almost like obsessive compulsive. She thinks that increasing her medication dosage is going to make her feel better but I explained she is already using very high doses of medications and therefore I must send a lab request for Mastic levles and that I will test her TSH also. She is able to contract for safety, she says she will staff know if she has suicidal thoughts, plans or intents. MANAGEMENT PLAN: Will continue with the same treatment plan. tomorrow, blood draw for TSH and Mastic levels TIME SPENT: 20 minutes. Vital Signs Vital Signs Date Time Temp Pulse Resp B/P (MAP) Pulse Ox O2 Delivery O2 Flow Rate FiO2 12/28/19 16:42 98.3 82 18 134/78 (96) 12/28/19 07:04 100 Room Air Current Medications Current Medications Medications (Trade) Dose Ordered Sig/Cory Route PRN Reason Start Time Stop Time Status Last Admin Dose Admin Acetaminophen (Tylenol Tab) 500 mg Q6HP PRN PO PAIN 12/20/19 18:00 Al Hydrox/Mg Hydrox/Simethicone (Mylanta) 30 ml Q4HP PRN PO HEARTBURN/INDIGESTION 12/20/19 18:00 Aripiprazole (AbiLIFY) 10 mg QHS PO 12/21/19 21:00 12/22/19 16:01 DC 12/21/19 20:37 Aripiprazole (AbiLIFY) 15 mg QAM PO 12/21/19 09:00 12/28/19 08:46 Aripiprazole (AbiLIFY) 15 mg QHS PO 12/22/19 21:00 12/27/19 20:38 Benztropine Mesylate (Cogentin) 0.5 mg Q2D PO 12/21/19 09:00 12/27/19 08:57 Benztropine Mesylate (Cogentin) 0.5 mg QHS PO 12/20/19 21:00 12/27/19 20:37 Diphenhydramine HCl (Benadryl) 50 mg QIDP PRN PO ANXIETY 12/27/19 17:00 12/28/19 14:35 Diphenhydramine HCl (Benadryl) 50 mg TIDP PRN PO ANXIETY 12/23/19 22:10 12/27/19 17:00 DC 12/26/19 20:06 Home Med (Med Rec Complete!) ASDIRECTED XX 12/20/19 17:45 12/20/19 17:35 DC Hydroxyzine HCl (Atarax) 50 mg Q6HP PRN PO ANXIETY 12/22/19 16:15 12/22/19 16:26 DC Hydroxyzine HCl (Atarax) 50 mg Q6HP PRN PO ANXIETY/AGITATION 12/22/19 16:45 12/27/19 16:57 DC 12/24/19 20:10 [place] Carbonate (Lithobid Cr) 600 mg Q12H PO 12/21/19 09:00 12/28/19 08:44 Magnesium Hydroxide (Milk Of Magnesia) 30 ml DAILYPRN PRN PO CONSTIPATION 12/20/19 18:00 Metformin HCl (Glucophage) 500 mg BIDWM PO 12/21/19 08:00 12/28/19 17:16 Miscellaneous (Unresolved Clarification Entry) SEE LABEL COMMENTS DAILY XX 12/22/19 09:00 12/22/19 16:26 DC Oxcarbazepine (Trileptal) 300 mg QAM PO 12/21/19 09:00 12/28/19 08:45 Oxcarbazepine (Trileptal) 600 mg QHS PO 12/21/19 21:00 12/27/19 20:39 Propranolol HCl (Inderal La) 60 mg QAM PO 12/21/19 09:00 12/28/19 08:45 Trazodone HCl (Desyrel) 50 mg QHSP PRN PO INSOMNIA 12/20/19 18:00 12/25/19 23:14 Vitamin E (Vitamin E) 400 units DAILY PO 12/21/19 09:00 12/28/19 08:45 Allergies Coded Allergies: cariprazine (Verified Allergy, Intermediate, increased SI, 10/01/19) Penicillins (Verified Allergy, Mild, rash, 10/01/19) risperidone (Verified Allergy, Mild, RASH, 10/01/19) prednisone (Verified Adverse Reaction, Intermediate, anxiety, agitation, 05/17/19) quetiapine (Verified Adverse Reaction, Intermediate, OCULOGYRIC CRISIS, 05/17/19) PRIMO GOLDSTEIN MD Dec 28, 2019 17:22
[2019-12-28] MEDS: BENZTROPINE 0.5 MG TAB PO SCH (21:11)
[2019-12-29 06:52] VITALS: BP 126/52
[2019-12-29] MEDS: metFORMIN (GLUCOPHAGE) 500 MG TAB PO SCH ×2 (07:47→17:09)
[2019-12-29 09:05] LABS: LITHIUM LEVEL 0.95 MEQ/L (0.60-1.20); THYROID STIMULATING HORMONE 8.41 uIU/ML (0.358-3.740)
[2019-12-29] MEDS: ARIPiprazole 15 MG TAB (AbiLIFY) PO SCH ×2 (09:14→21:25)
[2019-12-29] MEDS: LITHIUM CARBONATE 300 MG **CR** TAB PO SCH (09:14)
[2019-12-29] MEDS: PROPRANOLOL 60 MG LA CAP PO SCH (09:14)
[2019-12-29] MEDS: VITAMIN E 400 INTERNATIONAL UNITS CAP PO SCH (09:15)
[2019-12-29] MEDS: diphenhydrAMINE 50MG CAP PO PRN (09:15)
[2019-12-29] MEDS: BENZTROPINE 0.5 MG TAB PO SCH ×2 (09:15→21:26)
[2019-12-29] MEDS: OXcarbazepine 300 MG TAB PO SCH ×2 (09:15→21:26)
[2019-12-29 16:15] VITALS: BP 125/72
--- NOTE | 2019-12-29 19:21 | MHIPNPDOC ---
[facility] Progress Note Progress Note DATE OF SERVICE: 12/29/19 HISTORY: As per previous notes: "Pt presents to ED with superficial cuts to her left wrist via ambulance. Pt reports she cut her wrists today in an attempt to end her life. Pt reports she has had three attempts of suicide this month, which included strangling, hanging, and that today she took her 8:30pm medications at 1:30pm and cut her wrists. Pt reports current stressors include arguing with her parents, which is what she reports prompted todays suicide attempt, her cat passing away in July, and that she is nervous about getting ready to move out of her parents home into a residential facility. Pt reports auditory hallucinations, which she describes as a male's voice telling her to kill herself. Pt reports poor appetite and sleep, and feeling anxious and depressed. Pt denies h/i, but has a history of self harm, and s/i. Pt reports she has experienced s/i "forever". Pt has a history of schizoaffective disorder, ASD, and impulse control disorder. [facility], [facility] of which was November 26 2019 to [facility] due to s/i. Pt is pleasant and appears cheerful, singing and laughing, however pt states she cannot CFS and that she believes she would hurt herself if she went home, stating she cannot CFS. "Mom and dad don't think I'm safe to go home and I don't either." VITAL SIGNS: See below. NEW TEST RESULTS: See below. CURRENT MEDICATIONS: See below. MENTAL STATUS EXAMINATION: Patient is a 34-year old female, who is dressed in hospital clothes, fair eye contact, with good hygiene Speech: Is normal in r/t/v, spontaneous and fluent Language skills are good. Thought processes including: linear but not necessarily coherent. Thought content: POSITIVE for passive suicidal thoughts, negative for homicidal thoughts, she still endorses guilty thoughts about disappointing her parents, she reports anxiety about the future changes n her life, like going to a Residential Description of associations: not loose. Description of abnormal or psychotic thoughts: She still reports paranoid thoughts. Denies bizarre or grandiose delusions. Denies TAV hallucinations Judgment: poor Insight: poor Orientation: x 3. Recent and remote memory: fair. Attention span and concentration: poor, she is very anxious, she gets easily distracted Language: adequate. Fund of knowledge: below average. Mood: anxious/depressed. Affect: congruent with mood, mildly constricted. DIAGNOSES: 1. Schizoaffective disorder 2. Autism Spectrum Disorder. 3. ALISTAIR 4. OCD ASSESSMENT: She's still anxious about being discharged. She has obsessive t houghts about being suicidal and her roommate heard her talking to herself and wondering how to kill herself. She says that she has had some suicidal thoughts today. Her [place] levels are 0.95 and her TSH is 8.410. I will decrease [place] to 450 mgs PO BID and will repeat her lab next Friday12/31/19 to try to stabilize her Thyroid. MANAGEMENT PLAN: Will continue with the same treatment plan. tomorrow, blood draw for TSH and [place] levels TIME SPENT: 20 minutes. Vital Signs Vital Signs Date Time Temp Pulse Resp B/P (MAP) Pulse Ox O2 Delivery O2 Flow Rate FiO2 12/29/19 16:15 97.6 92 16 125/72 (89) 12/29/19 06:52 Room Air 12/28/19 07:04 100 Laboratory Data 24H Labs Laboratory Tests 2 12/29/19 07:37: Thyroid Stimulating Hormone (TSH) 8.410H, [place] Level 0.95 Current Medications Current Medications Medications (Trade) Dose Ordered Sig/Cory Route PRN Reason Start Time Stop Time Status Last Admin Dose Admin Acetaminophen (Tylenol Tab) 500 mg Q6HP PRN PO PAIN 12/20/19 18:00 Al Hydrox/Mg Hydrox/Simethicone (Mylanta) 30 ml Q4HP PRN PO HEARTBURN/INDIGESTION 12/20/19 18:00 Aripiprazole (AbiLIFY) 10 mg QHS PO 12/21/19 21:00 12/22/19 16:01 DC 12/21/19 20:37 Aripiprazole (AbiLIFY) 15 mg QAM PO 12/21/19 09:00 12/29/19 09:14 Aripiprazole (AbiLIFY) 15 mg QHS PO 12/22/19 21:00 12/28/19 21:11 Benztropine Mesylate (Cogentin) 0.5 mg Q2D PO 12/21/19 09:00 12/29/19 09:15 Benztropine Mesylate (Cogentin) 0.5 mg QHS PO 12/20/19 21:00 12/28/19 21:11 Diphenhydramine HCl (Benadryl) 50 mg QIDP PRN PO ANXIETY 12/27/19 17:00 12/29/19 09:15 Diphenhydramine HCl (Benadryl) 50 mg TIDP PRN PO ANXIETY 12/23/19 22:10 12/27/19 17:00 DC 12/26/19 20:06 Home Med (Med Rec Complete!) ASDIRECTED XX 12/20/19 17:45 12/20/19 17:35 DC Hydroxyzine HCl (Atarax) 50 mg Q6HP PRN PO ANXIETY 12/22/19 16:15 12/22/19 16:26 DC Hydroxyzine HCl (Atarax) 50 mg Q6HP PRN PO ANXIETY/AGITATION 12/22/19 16:45 12/27/19 16:57 DC 12/24/19 20:10 Levothyroxine Sodium (Synthroid) 25 mcg DAILY@06 PO 12/30/19 06:00 Cancel [place] Carbonate ([place] Carbonate) 450 mg BID PO 12/29/19 21:00 [place] Carbonate (Lithobid Cr) 600 mg Q12H PO 12/21/19 09:00 12/29/19 18:42 DC 12/29/19 09:14 Magnesium Hydroxide (Milk Of Magnesia) 30 ml DAILYPRN PRN PO CONSTIPATION 12/20/19 18:00 Metformin HCl (Glucophage) 500 mg BIDWM PO 12/21/19 08:00 12/29/19 17:09 Miscellaneous (Unresolved Clarification Entry) SEE LABEL COMMENTS DAILY XX 12/22/19 09:00 12/22/19 16:26 DC Oxcarbazepine (Trileptal) 300 mg QAM PO 12/21/19 09:00 12/29/19 09:15 Oxcarbazepine (Trileptal) 600 mg QHS PO 12/21/19 21:00 12/28/19 21:11 Propranolol HCl (Inderal La) 60 mg QAM PO 12/21/19 09:00 12/29/19 09:14 Trazodone HCl (Desyrel) 50 mg QHSP PRN PO INSOMNIA 12/20/19 18:00 12/25/19 23:14 Vitamin E (Vitamin E) 400 units DAILY PO 12/21/19 09:00 12/29/19 09:15 Allergies Coded Allergies: cariprazine (Verified Allergy, Intermediate, increased SI, 10/01/19) Penicillins (Verified Allergy, Mild, rash, 10/01/19) risperidone (Verified Allergy, Mild, RASH, 10/01/19) prednisone (Verified Adverse Reaction, Intermediate, anxiety, agitation, 05/17/19) quetiapine (Verified Adverse Reaction, Intermediate, OCULOGYRIC CRISIS, 05/17/19) PRIMO GOLDSTEIN MD Dec 29, 2019 19:21
[2019-12-29] MEDS: LITHIUM CARBONATE 150 MG CAP PO SCH (21:26)
[2019-12-30] MEDS ORDERED: LEVOTHYROXINE 25MCG TABLET (0.025MG) PO SCH (06:00)
[2019-12-30 06:36] VITALS: BP 133/76
[2019-12-30] MEDS: metFORMIN (GLUCOPHAGE) 500 MG TAB PO SCH ×2 (07:28→17:02)
[2019-12-30] MEDS: PROPRANOLOL 60 MG LA CAP PO SCH (08:41)
[2019-12-30] MEDS: LITHIUM CARBONATE 150 MG CAP PO SCH ×2 (08:41→20:10)
[2019-12-30] MEDS: VITAMIN E 400 INTERNATIONAL UNITS CAP PO SCH (08:41)
[2019-12-30] MEDS: OXcarbazepine 300 MG TAB PO SCH ×2 (08:41→20:11)
[2019-12-30] MEDS: ARIPiprazole 15 MG TAB (AbiLIFY) PO SCH ×2 (08:41→20:10)
--- NOTE | 2019-12-30 09:52 | MHIPNPDOC ---
[facility] Progress Note Progress Note DATE OF SERVICE: 12/30/19 Grace is seen today for follow up. She admits to feeling better since she started her treatment. She is currently looking for housing. Grace admits to not wanting to have roommates, and she wants to be involved in the process of choosing a house. Grace is worried about getting time to visit her parents when she is living on her own. She is particularly concerned with moving her stuff out. Grace is also concerned about having a discharge date. She becomes tearful when talking about it, and she specifically wants to go home to see her family. She is set on not being discharged again after she leaves. Objective Behavior: Patient is fixated on her disposition. Cooperative with good eye contact. Engaged. Pleasant. Affect: Flat consistent with her autism. Full range. Appropriate to context. Speech: Normal rate. Normal volume. Cognition: Alert, Attentive, and Oriented to person, place, time. Judgement: Limited. Insight: Limited. good insight into symptoms and treatment options. Assessment F33.9 Major depressive disorder, recurrent, unspecified F84.0 Autistic disorder F10.24 Alcohol dependence with alcohol-induced mood disorder Plan Continue on medications as currently. Will convert to PC today. Will attempt to minimize the time between her discharge and her potential transfer to a snf as she has multiple times of being readmitted, and she has a strong belief of the treatment team and that this would be the most ideal to reducing her readmission and to help her perform better and ultimately stay safe due to her frequent family rancor. Vital Signs Vital Signs Date Time Temp Pulse Resp B/P (MAP) Pulse Ox O2 Delivery O2 Flow Rate FiO2 12/30/19 08:41 77 127/60 12/30/19 06:36 97.9 16 12/29/19 06:52 Room Air 12/28/19 07:04 100 Current Medications Current Medications Medications (Trade) Dose Ordered Sig/Cory Route PRN Reason Start Time Stop Time Status Last Admin Dose Admin Acetaminophen (Tylenol Tab) 500 mg Q6HP PRN PO PAIN 12/20/19 18:00 Al Hydrox/Mg Hydrox/Simethicone (Mylanta) 30 ml Q4HP PRN PO HEARTBURN/INDIGESTION 12/20/19 18:00 Aripiprazole (AbiLIFY) 10 mg QHS PO 12/21/19 21:00 12/22/19 16:01 DC 12/21/19 20:37 Aripiprazole (AbiLIFY) 15 mg QAM PO 12/21/19 09:00 12/30/19 08:41 Aripiprazole (AbiLIFY) 15 mg QHS PO 12/22/19 21:00 12/29/19 21:25 Benztropine Mesylate (Cogentin) 0.5 mg Q2D PO 12/21/19 09:00 12/29/19 09:15 Benztropine Mesylate (Cogentin) 0.5 mg QHS PO 12/20/19 21:00 12/29/19 21:26 Diphenhydramine HCl (Benadryl) 50 mg QIDP PRN PO ANXIETY 12/27/19 17:00 12/29/19 09:15 Diphenhydramine HCl (Benadryl) 50 mg TIDP PRN PO ANXIETY 12/23/19 22:10 12/27/19 17:00 DC 12/26/19 20:06 Home Med (Med Rec Complete!) ASDIRECTED XX 12/20/19 17:45 12/20/19 17:35 DC Hydroxyzine HCl (Atarax) 50 mg Q6HP PRN PO ANXIETY 12/22/19 16:15 12/22/19 16:26 DC Hydroxyzine HCl (Atarax) 50 mg Q6HP PRN PO ANXIETY/AGITATION 12/22/19 16:45 12/27/19 16:57 DC 12/24/19 20:10 Levothyroxine Sodium (Synthroid) 25 mcg DAILY@06 PO 12/30/19 06:00 Cancel [place] Carbonate ([place] Carbonate) 450 mg BID PO 12/29/19 21:00 12/30/19 08:41 [place] Carbonate (Lithobid Cr) 600 mg Q12H PO 12/21/19 09:00 12/29/19 18:42 DC 12/29/19 09:14 Magnesium Hydroxide (Milk Of Magnesia) 30 ml DAILYPRN PRN PO CONSTIPATION 12/20/19 18:00 Metformin HCl (Glucophage) 500 mg BIDWM PO 12/21/19 08:00 12/30/19 07:28 Miscellaneous (Unresolved Clarification Entry) SEE LABEL COMMENTS DAILY XX 12/22/19 09:00 12/22/19 16:26 DC Oxcarbazepine (Trileptal) 300 mg QAM PO 12/21/19 09:00 12/30/19 08:41 Oxcarbazepine (Trileptal) 600 mg QHS PO 12/21/19 21:00 12/29/19 21:26 Propranolol HCl (Inderal La) 60 mg QAM PO 12/21/19 09:00 12/30/19 08:41 Trazodone HCl (Desyrel) 50 mg QHSP PRN PO INSOMNIA 12/20/19 18:00 12/25/19 23:14 Vitamin E (Vitamin E) 400 units DAILY PO 12/21/19 09:00 12/30/19 08:41 Allergies Coded Allergies: cariprazine (Verified Allergy, Intermediate, increased SI, 10/01/19) Penicillins (Verified Allergy, Mild, rash, 10/01/19) risperidone (Verified Allergy, Mild, RASH, 10/01/19) prednisone (Verified Adverse Reaction, Intermediate, anxiety, agitation, 05/17/19) quetiapine (Verified Adverse Reaction, Intermediate, OCULOGYRIC CRISIS, 05/17/19) BIGG PATEL DO Dec 30, 2019 09:51
[2019-12-30] MEDS: diphenhydrAMINE 50MG CAP PO PRN ×2 (13:05→18:25)
[2019-12-30 16:11] VITALS: BP 124/61
[2019-12-30] MEDS: BENZTROPINE 0.5 MG TAB PO SCH (20:10)
[2019-12-31 07:20] VITALS: BP 125/62
[2019-12-31] MEDS: metFORMIN (GLUCOPHAGE) 500 MG TAB PO SCH ×2 (08:02→17:01)
[2019-12-31] MEDS: OXcarbazepine 300 MG TAB PO SCH ×2 (09:25→20:40)
[2019-12-31] MEDS: BENZTROPINE 0.5 MG TAB PO SCH ×2 (09:25→20:39)
[2019-12-31] MEDS: VITAMIN E 400 INTERNATIONAL UNITS CAP PO SCH (09:25)
[2019-12-31] MEDS: ARIPiprazole 15 MG TAB (AbiLIFY) PO SCH ×2 (09:25→20:38)
[2019-12-31] MEDS: PROPRANOLOL 60 MG LA CAP PO SCH (09:26)
[2019-12-31] MEDS: LITHIUM CARBONATE 150 MG CAP PO SCH ×2 (09:38→20:39)
[2019-12-31 10:37] LABS: LITHIUM LEVEL 0.68 MEQ/L (0.60-1.20); THYROID STIMULATING HORMONE 4.73 uIU/ML (0.358-3.740)
[2019-12-31] MEDS: diphenhydrAMINE 50MG CAP PO PRN (14:07)
[2019-12-31 16:41] VITALS: BP 137/70
[2020-01-01 06:14] VITALS: BP 140/73
[2020-01-01] MEDS: metFORMIN (GLUCOPHAGE) 500 MG TAB PO SCH ×2 (07:21→17:15)
[2020-01-01] MEDS: VITAMIN E 400 INTERNATIONAL UNITS CAP PO SCH (08:44)
[2020-01-01] MEDS: LITHIUM CARBONATE 150 MG CAP PO SCH ×2 (08:44→20:07)
[2020-01-01] MEDS: OXcarbazepine 300 MG TAB PO SCH ×2 (08:44→20:07)
[2020-01-01] MEDS: ARIPiprazole 15 MG TAB (AbiLIFY) PO SCH ×2 (08:45→20:07)
[2020-01-01] MEDS: PROPRANOLOL 60 MG LA CAP PO SCH (08:45)
[2020-01-01 16:32] VITALS: BP 138/74
[2020-01-01] MEDS: diphenhydrAMINE 50MG CAP PO PRN (17:17)
[2020-01-01] MEDS: BENZTROPINE 0.5 MG TAB PO SCH (20:07)
[2020-01-01] MEDS: traZODone 50 MG TAB PO PRN (21:43)
[2020-01-02 06:31] VITALS: BP 128/58
[2020-01-02] MEDS: metFORMIN (GLUCOPHAGE) 500 MG TAB PO SCH ×2 (07:19→17:11)
[2020-01-02] MEDS: VITAMIN E 400 INTERNATIONAL UNITS CAP PO SCH (08:37)
[2020-01-02] MEDS: LITHIUM CARBONATE 150 MG CAP PO SCH ×2 (08:37→21:08)
[2020-01-02] MEDS: OXcarbazepine 300 MG TAB PO SCH ×2 (08:37→21:08)
[2020-01-02] MEDS: BENZTROPINE 0.5 MG TAB PO SCH ×2 (08:38→21:08)
[2020-01-02] MEDS: ARIPiprazole 15 MG TAB (AbiLIFY) PO SCH ×2 (08:38→21:08)
[2020-01-02] MEDS: PROPRANOLOL 60 MG LA CAP PO SCH (08:38)
[2020-01-02] MEDS: diphenhydrAMINE 50MG CAP PO PRN ×3 (09:33→21:08)
[2020-01-02 16:34] VITALS: BP 124/60
[2020-01-02] MEDS: traZODone 50 MG TAB PO PRN (22:55)
[2020-01-03 06:50] VITALS: BP 119/60
[2020-01-03] MEDS: VITAMIN E 400 INTERNATIONAL UNITS CAP PO SCH (08:52)
[2020-01-03] MEDS: PROPRANOLOL 60 MG LA CAP PO SCH (08:52)
[2020-01-03] MEDS: ARIPiprazole 15 MG TAB (AbiLIFY) PO SCH ×2 (08:52→20:36)
[2020-01-03] MEDS: metFORMIN (GLUCOPHAGE) 500 MG TAB PO SCH ×2 (08:52→17:37)
[2020-01-03] MEDS: LITHIUM CARBONATE 150 MG CAP PO SCH ×2 (08:52→20:36)
[2020-01-03] MEDS: diphenhydrAMINE 50MG CAP PO PRN ×2 (08:53→14:22)
[2020-01-03] MEDS: OXcarbazepine 300 MG TAB PO SCH ×2 (08:53→20:36)
[2020-01-03 15:57] VITALS: BP 133/62
--- NOTE | 2020-01-03 20:18 | MHIPNPDOC ---
[facility] Progress Note Progress Note DATE OF SERVICE: 01/03/20 HISTORY: As per previous notes: "Pt presents to ED with superficial cuts to her left wrist via ambulance. Pt reports she cut her wrists today in an attempt to end her life. Pt reports she has had three attempts of suicide this month, which included strangling, hanging, and that today she took her 8:30pm medications at 1:30pm and cut her wrists. Pt reports current stressors include arguing with her parents, which is what she reports prompted todays suicide attempt, her cat passing away in July, and that she is nervous about getting ready to move out of her parents home into a residential facility. Pt reports auditory hallucinations, which she describes as a male's voice telling her to kill herself. Pt reports poor appetite and sleep, and feeling anxious and depressed. Pt denies h/i, but has a history of self harm, and s/i. Pt reports she has experienced s/i "forever". Pt has a history of schizoaffective disorder, ASD, and impulse control disorder. [facility] of which was November 26 [facility] to [facility] due to s/i. Pt is pleasant and appears cheerful, singing and laughing, however pt states she cannot CFS and that she believes she would hurt herself if she went home, stating she cannot CFS. "Mom and dad don't think I'm safe to go home and I don't either." VITAL SIGNS: See below. NEW TEST RESULTS: See below. CURRENT MEDICATIONS: See below. MENTAL STATUS EXAMINATION: Patient is a 34-year old female, who is dressed in hospital clothes, fair eye contact, with good hygiene Speech: Is normal in r/t/v, spontaneous and fluent Language skills are good. Thought processes including: linear, a little bit more organized Thought content: Negative at this time for suicidal thoughts, negative for homicidal ideation, negative for thought delusions at this time but she reports anxious thoughts an obsessive thoughts Description of associations: not loose. Description of abnormal or psychotic thoughts: She reports few paranoid thoughts. Denies bizarre or grandiose delusions. Denies TAV hallucinations Judgment: poor Insight: poor Orientation: x 3. Recent and remote memory: fair. Attention span and concentration: poor, she is anxious but less than last week. Language: adequate. Fund of knowledge: below average. Mood: mildly anxious. Affect: congruent with mood, mildly constricted. DIAGNOSES: 1. Schizoaffective disorder 2. Autism Spectrum Disorder. 3. ALISTAIR 4. OCD ASSESSMENT: Ordered another TSH and [place] levels. If they are still abnormal will decrease [place] to 600 mgs Po daily instead of 900. Her mood is improved, she is less depressed, less irritable, less labile. her anxiety has gone down a little bit too. MANAGEMENT PLAN: Will continue with the same treatment plan. tomorrow, blood draw for TSH and [place] levels TIME SPENT: 20 minutes. Vital Signs Vital Signs Date Time Temp Pulse Resp B/P (MAP) Pulse Ox O2 Delivery O2 Flow Rate FiO2 01/03/20 15:57 98.4 70 16 133/62 (85) 01/03/20 06:50 Room Air 12/31/19 07:20 97 Current Medications Current Medications Medications (Trade) Dose Ordered Sig/Cory Route PRN Reason Start Time Stop Time Status Last Admin Dose Admin Acetaminophen (Tylenol Tab) 500 mg Q6HP PRN PO PAIN 12/20/19 18:00 Al Hydrox/Mg Hydrox/Simethicone (Mylanta) 30 ml Q4HP PRN PO HEARTBURN/INDIGESTION 12/20/19 18:00 Aripiprazole (AbiLIFY) 10 mg QHS PO 12/21/19 21:00 12/22/19 16:01 DC 12/21/19 20:37 Aripiprazole (AbiLIFY) 15 mg QAM PO 12/21/19 09:00 01/03/20 08:52 Aripiprazole (AbiLIFY) 15 mg QHS PO 12/22/19 21:00 01/02/20 21:08 Benztropine Mesylate (Cogentin) 0.5 mg Q2D PO 12/21/19 09:00 01/02/20 08:38 Benztropine Mesylate (Cogentin) 0.5 mg QHS PO 12/20/19 21:00 01/02/20 21:08 Diphenhydramine HCl (Benadryl) 50 mg QIDP PRN PO ANXIETY 12/27/19 17:00 01/03/20 14:22 Diphenhydramine HCl (Benadryl) 50 mg TIDP PRN PO ANXIETY 12/23/19 22:10 12/27/19 17:00 DC 12/26/19 20:06 Home Med (Med Rec Complete!) ASDIRECTED XX 12/20/19 17:45 12/20/19 17:35 DC Hydroxyzine HCl (Atarax) 50 mg Q6HP PRN PO ANXIETY 12/22/19 16:15 12/22/19 16:26 DC Hydroxyzine HCl (Atarax) 50 mg Q6HP PRN PO ANXIETY/AGITATION 12/22/19 16:45 12/27/19 16:57 DC 12/24/19 20:10 Levothyroxine Sodium (Synthroid) 25 mcg DAILY@06 PO 12/30/19 06:00 Cancel [place] Carbonate ([place] Carbonate) 450 mg BID PO 12/29/19 21:00 01/03/20 08:52 [place] Carbonate (Lithobid Cr) 600 mg Q12H PO 12/21/19 09:00 12/29/19 18:42 DC 12/29/19 09:14 Magnesium Hydroxide (Milk Of Magnesia) 30 ml DAILYPRN PRN PO CONSTIPATION 12/20/19 18:00 Metformin HCl (Glucophage) 500 mg BIDWM PO 12/21/19 08:00 01/03/20 08:52 Miscellaneous (Unresolved Clarification Entry) SEE LABEL COMMENTS DAILY XX 12/22/19 09:00 12/22/19 16:26 DC Oxcarbazepine (Trileptal) 300 mg QAM PO 12/21/19 09:00 01/03/20 08:53 Oxcarbazepine (Trileptal) 600 mg QHS PO 12/21/19 21:00 01/02/20 21:08 Propranolol HCl (Inderal La) 60 mg QAM PO 12/21/19 09:00 01/03/20 08:52 Trazodone HCl (Desyrel) 50 mg QHSP PRN PO INSOMNIA 12/20/19 18:00 01/02/20 22:55 Vitamin E (Vitamin E) 400 units DAILY PO 12/21/19 09:00 01/03/20 08:52 Allergies Coded Allergies: cariprazine (Verified Allergy, Intermediate, increased SI, 10/01/19) Penicillins (Verified Allergy, Mild, rash, 10/01/19) risperidone (Verified Allergy, Mild, RASH, 10/01/19) prednisone (Verified Adverse Reaction, Intermediate, anxiety, agitation, 05/17/19) quetiapine (Verified Adverse Reaction, Intermediate, OCULOGYRIC CRISIS, 05/17/19) PRIMO GOLDSTEIN MD Jan 03, 2020 17:25
[2020-01-03] MEDS: BENZTROPINE 0.5 MG TAB PO SCH (20:36)
[2020-01-04 06:46] VITALS: BP 129/67
[2020-01-04] MEDS: OXcarbazepine 300 MG TAB PO SCH ×2 (08:27→21:41)
[2020-01-04] MEDS: VITAMIN E 400 INTERNATIONAL UNITS CAP PO SCH (08:28)
[2020-01-04] MEDS: metFORMIN (GLUCOPHAGE) 500 MG TAB PO SCH ×2 (08:28→17:10)
[2020-01-04] MEDS: ARIPiprazole 15 MG TAB (AbiLIFY) PO SCH ×2 (08:28→21:39)
[2020-01-04] MEDS: LITHIUM CARBONATE 150 MG CAP PO SCH (08:28)
[2020-01-04] MEDS: BENZTROPINE 0.5 MG TAB PO SCH ×2 (08:29→21:39)
[2020-01-04] MEDS: PROPRANOLOL 60 MG LA CAP PO SCH (08:29)
[2020-01-04 09:34] LABS: THYROID STIMULATING HORMONE 6.92 uIU/ML (0.358-3.740)
[2020-01-04 10:02] LABS: LITHIUM LEVEL 0.59 MEQ/L (0.60-1.20)
--- NOTE | 2020-01-04 10:34 | MHIPN ---
DATE OF SERVICE: 01/03/2020 The patient today tells me that "I'm doing a little bit better, but my medicine is not working." She tells me that she is not feeling anxious because of the Benadryl PRN she took. However, she thinks that she continues to have suicidal thoughts, although she is able to contract for safety. I did review the note that was done by the nurse, Sherrill Byrnes, today around 1 o'clock, and the patient is noted to be quite labile and was crying 1 minute, and the next moment she was laughing. MENTAL STATUS EXAMINATION: The patient is alert and oriented. The patient is verbally spontaneous. No formal thought disorder noted. She tells me that she is doing "better." However, clearly she continues to have a lot of mood changes as noted in the nurse's note today with labile affect. The patient has continued to voice suicidal thoughts, although she contracts for safety. She denies homicidal thoughts. Concentration is fair. Insight and judgment is poor DIAGNOSES: 1. Major depressive disorder, recurrent. 2. Unspecified autistic disorder. 3. Alcohol dependence with alcohol-induced mood disorder. TREATMENT PLAN: At this point, will continue to monitor the patient for mood lability and suicidal thoughts. This patient is on lithium 450 mg twice a day. She is on Abilify 15 mg twice a day, Cogentin 0.5 mg twice a day, Trileptal 300 mg every morning and 600 mg nightly, and trazodone 50 mg as needed at bedtime. We will continue to monitor medications as indicated. [facility]
[2020-01-04 18:07] VITALS: BP 145/74
[2020-01-04 18:09] LABS: FREE THYROXINE INDEX 1.5 % (1.3-4.8); THYROXINE (T4) 5.1 UG/DL (4.5-12.0)
[2020-01-04] MEDS ORDERED: LITHIUM CARBONATE 150 MG CAP PO SCH (21:00)
[2020-01-05 06:38] VITALS: BP 137/59
[2020-01-05] MEDS: ARIPiprazole 15 MG TAB (AbiLIFY) PO SCH ×2 (08:42→20:22)
[2020-01-05] MEDS: VITAMIN E 400 INTERNATIONAL UNITS CAP PO SCH (08:42)
[2020-01-05] MEDS: metFORMIN (GLUCOPHAGE) 500 MG TAB PO SCH ×2 (08:42→17:28)
[2020-01-05] MEDS: PROPRANOLOL 60 MG LA CAP PO SCH (08:43)
[2020-01-05] MEDS ORDERED: carBAMazepine 200 MG TAB PO SCH (09:00)
--- NOTE | 2020-01-05 09:44 | MHIPN ---
DATE OF SERVICE: 01/04/2020 The patient today tells me "I'm doing very well." When I asked to elaborate on how she is doing better, she tells me that she is not having suicidal thoughts today and that she has not taken any as-needed medications today. However, I did discuss with her that even yesterday morning, according to the nursing note, the patient was quite labile, she was crying and laughing the next moment, and she was still having suicidal thoughts. The patient also yesterday, she was telling me she did not think her medicine was working for her. I discussed with the patient that apparently she has had thyroid-stimulating hormone (TSH) levels done numerous times during this admission and that it seems that the TSH has gone up and done. It seems that last week she was seen by Dr. Burgess, who noticed the increase in the TSH and she lowered the lithium dose, but then her lithium levels were decreasing to 0.68 on 12/31/2019. It had been 0.59 on 01/04/2020. Subsequent to that, on 12/29/2019 it went up again to 0.95 and this was the time that TSH had increased up to 8.410. I decided, and I discussed with the patient that I am going to just discontinue the lithium on this patient to avoid any further effects on her thyroid. She might feel a need to have thyroid levels done and we do need to have her evaluated by the medical doctor to see if they should start her on some thyroid medication, and I discussed this with the patient. Instead, I am going to increase the Trileptal from 300 every morning, 600 mg at bedtime up to 600 mg twice a day. MENTAL STATUS EXAMINATION: She is alert, oriented times three. She is verbally spontaneous. She has no formal thought disorder. She tells me that she is doing "very well" and it seems that her affect must be more appropriate today. She was denying suicidal thoughts today, but again she was still having the suicidal thoughts yesterday morning. Concentration is fair. Memory intact. Insight and judgment poor. DIAGNOSES: Major depressive disorder, recurrent. Unspecified autistic disorder. Alcohol dependence with alcohol-induced mood disorder. TREATMENT PLAN: At this point, as I said, I will discontinue the lithium and we will increase the Trileptal to 600 mg twice a day. Edited: 01/05/2020 1003 vlm
[2020-01-05 17:23] VITALS: BP 162/70
[2020-01-05] MEDS: BENZTROPINE 0.5 MG TAB PO SCH (20:22)
[2020-01-05] MEDS: diphenhydrAMINE 50MG CAP PO PRN (20:22)
[2020-01-05] MEDS: OXcarbazepine 300 MG TAB PO SCH (20:22)
[2020-01-06 06:53] VITALS: BP 130/64
--- NOTE | 2020-01-06 07:38 | MHDSPDOC ---
[facility] Discharge Summary Discharge Summary DATE OF ADMISSION: Dec 20, 2019 at 17:53 DATE OF DISCHARGE:Jan 06, 2020 at 13:00 DISCHARGE DIAGNOSES: Unspecified depressive disorder autism spectrum disorder REASON FOR ADMISSION: 34-year-old woman with a long history of depression and autism presents after making suicidal statements CONSULTANTS INVOLVED:[ None (basic hospitalist screening)] TREATMENT AND PROGRESS ON THE UNIT : Medication changes: resumed on home medications and subsequently had Trileptal increased to a total 600 mg twice daily Behavior on unit: friendly and amenable, generally has autistic characteristics improved over time, became much more calm with no behavioral issues Treatment attendance: attended well Notable issues on presentation: planning for placement in a detention as had been planned for a long time State on discharge: [improved] DISCHARGE ASSESSMENT: The patient a 34 year old woman, with likely autism and depression, presented to [facility], where they treated with appropriate agents and resolved well after an extensive period of observation. Legal status considerations: The patient at the time of discharge did not meet criteria for involuntary admission/extension due to having a, baseline mental status exam,, baseline insight into the situation, They are engaged in the discharge process, as well as being friendly and amenable in behavioral control and havent been engaging in any observed concerning behavior or ideation recently. They decline voluntary extension/admission at this time and must be discharged in good marta, as Im unable to make a case for holding the patient against their will. They may have historical risk factors of admissions and other interactions with psychiatry however, those are not modifiable from a clinical perspective. The patient will need to be discharged in good marta. MENTAL STATUS EXAMINATION ON DISCHARGE: General: [Well dressed with good hygiene] Speech: [Spontaneous and fluid] Thought processes: [Linear and logical] Thought content: [Future orientated] Abstract reasoning, and computation: [Intact] Description of associations: chronic autistic Description of abnormal or psychotic thoughts:[Denies any suicidal or homicidal ideation. Denies any auditory or visual hallucinations. Does not appear to be responding to internal stimuli. Does not appear to be endorsing any bizarre or paranoid ideation.] Judgment: chronically limited Insight: chronically limited Orientation: [Alert and orientated 3] Recent and remote memory: [Intact] Attention span and concentration: [Intact] Fund of knowledge: [Adequate] Mood: ["okay"] Affect: [Euthymic with a full range] PLAN/FOLLOWUP ARRANGEMENTS: Follow up appointments made (PCP and MH in 5 days of D/C date) and safety plan completed. Safety Planning aspects completed prior to discharge [Medication supplies limited to 7 days with 4 refills to prevent accumulation to OD] [Family contact completed, educated on safe practices, instructed on removal and mitigation of dangerous means] [RN reviewed crisis hotline information and other aspects to empower patient to access care in interim before next appointment.] The amount of time spent in the coordination of care for this patient was approximately 30 minutes. Vital Signs/I&Os Vital Signs Date Time Temp Pulse Resp B/P (MAP) Pulse Ox O2 Delivery O2 Flow Rate FiO2 01/06/20 06:53 97.6 71 12 130/64 (86) 99 Room Air Medications Scheduled Aripiprazole (Aripiprazole) 15 Mg Tablet, 15 MG PO QAM, (Reported) Aripiprazole (Aripiprazole) 10 Mg Tablet, 10 MG PO QHS, (Reported) Benztropine Mesylate (Benztropine Mesylate) 0.5 Mg Tablet, 0.5 MG PO QHS, (Reported) Benztropine Mesylate (Benztropine Mesylate) 0.5 Mg Tablet, 0.5 MG PO Q2D, (Reported) QAM Calcium Carbonate/Vitamin D3 (Calcium 600-Vit D3 800 Tablet) 1 Each Tablet, 1 TAB PO DAILY, (Reported) Hydroxyzine Pamoate (Hydroxyzine Pamoate) 25 Mg Capsule, 25 MG PO DAILY, (Reported) PATIENT STATES NOT ALLERGIC TO THIS ONE [place] Carbonate ([place] Carbonate ER) 300 Mg Tablet.er, 600 MG PO Q12H, (Reported) Metformin HCl (Metformin HCl) 500 Mg Tablet, 500 MG PO BID, (Reported) Oxcarbazepine (Oxcarbazepine) 300 Mg Tablet, 600 MG PO BID for mood for 7 Days, #14 Propranolol HCl (Propranolol HCl ER) 60 Mg Cap.sa.24h, 60 MG PO QAM, (Reported) Vitamin E (Dl,Tocopheryl Acet) (Vitamin E) 400 Unit Capsule, 400 UNIT PO DAILY, (Reported) Scheduled PRN Acetaminophen (Acetaminophen) 500 Mg Tablet, 500 MG PO Q6H PRN for PAIN, (Reported) Melatonin (Melatonin) 3 Mg Tablet, 3 MG PO QHS PRN for SLEEP, (Reported) Trazodone HCl (Trazodone HCl) 50 Mg Tablet, 50 MG PO QHSP PRN for INSOMNIA for 7 Days, #7 Allergies Coded Allergies: cariprazine (Verified Allergy, Intermediate, increased SI, 10/01/19) Penicillins (Verified Allergy, Mild, rash, 10/01/19) risperidone (Verified Allergy, Mild, RASH, 10/01/19) prednisone (Verified Adverse Reaction, Intermediate, anxiety, agitation, 05/17/19) quetiapine (Verified Adverse Reaction, Intermediate, OCULOGYRIC CRISIS, 05/17/19) BIGG PATEL DO Jan 06, 2020 07:38
[2020-01-06] MEDS ORDERED: OXCA300T14 PO (08:02)
[2020-01-06] MEDS: BENZTROPINE 0.5 MG TAB PO SCH (08:49)
[2020-01-06] MEDS: VITAMIN E 400 INTERNATIONAL UNITS CAP PO SCH (08:49)
[2020-01-06 08:50] VITALS: BP 130/64
[2020-01-06] MEDS: OXcarbazepine 300 MG TAB PO SCH (08:50)
[2020-01-06] MEDS: metFORMIN (GLUCOPHAGE) 500 MG TAB PO SCH (08:50)
[2020-01-06] MEDS: PROPRANOLOL 60 MG LA CAP PO SCH (08:50)
[2020-01-06] MEDS: ARIPiprazole 15 MG TAB (AbiLIFY) PO SCH (08:50)
--- NOTE | 2020-01-06 10:18 | MHIPN ---
DATE OF SERVICE: 01/05/2020 Today the patient tells me that she is feeling better. She tells me that today she is not having any suicidal ideations. She keeps perseverating about the fact that she wants to go home 4 days before she goes to whatever residential placement that will be setup for her. Apparently, she had a meeting to discuss residency today, but she tells me that she cannot even remember anything that was said in the meeting. In reviewing the nurse's note today, the patient is still noted to have some lability in mood. MENTAL STATUS EXAMINATION: She is alert and oriented times three. Eye contact is fairly good. Her speech is somewhat pressured. She is very circumstantial and tangential. She says that her mood is okay. Affect appears to be somewhat labile. She is not psychotic and she is denying suicidal or homicidal ideations today. Her concentration is fair. Her memory is intact. Insight and judgment is fair. DIAGNOSES: Major depressive disorder, recurrent. Unspecified autistic disorder. Alcohol dependence with alcohol-induced mood disorder. TREATMENT PLAN: Of note was that the patient was seen by the hospitalist briefly yesterday and he did review the patient's thyroid-stimulating hormone (TSH) was about 6. Since I discontinued the lithium, it is most likely that TSH will be going back to normal. The patient today states that she has not had any suicidal ideations and it seems like she did not have any suicidal thoughts yesterday, so we will continue to monitor for continued resolution of these suicidal thoughts and for further stabilization of her mood. I had changed her medication to discontinuing the lithium and instead increased the Trileptal to 600 mg twice a day, and we will continue to titrate her medications as indicated. LAY
[2020-01-06] MEDS ORDERED: TRAZ-252 PO (11:46)
== END 2020-01-06 13:00 | disposition home or self-care (01) | DRG 754 ==
LOC: M ED 14:48 → M ED INP 17:53 → M PSY 22:25
PROVIDERS: ADMIT Psychiatry & Neurology Psychiatry; ATTEND Psychiatry & Neurology Addiction Medicine
DX: F32.9 Major depressive disorder, single episode, unspecified (principal); E11.9 Type 2 diabetes mellitus without complications; F10.24 Alcohol dependence with alcohol-induced mood disorder; F25.9 Schizoaffective disorder, unspecified; F84.0 Autistic disorder; F41.1 Generalized anxiety disorder; F42.9 Obsessive-compulsive disorder, unspecified; Z79.84 Long term (current) use of oral hypoglycemic drugs; Z79.899 Other long term (current) drug therapy; Z88.0 Allergy status to penicillin; Z88.8 Allergy status to other drugs, medicaments and biological substances

== ENCOUNTER → 2020-02-10 | Outpatient (CLI) | payer MEDICAID ==
[~2020-02-10] MED LIST changes: +MELA3TAB29 PO; -MELA3TAB59 PO; +TRAZ-252 PO
[2020-02-10 14:38] LABS: BASO # 0.1 10^3/uL (0.0-0.2); BASO % 0.8 % (0.0-1.0); EOS # 0.2 10^3/uL (0.0-0.5); EOS % 2.5 % (0.0-3.0); HEMATOCRIT 41.9 % (36.0-47.0); HEMOGLOBIN 13.3 g/dl (12.0-15.5); LYMPH # 1.3 10^3/uL (1.5-5.0); MEAN CORPUSCULAR HEMOGLOBIN 28.1 pg (27.0-33.0); MEAN CORPUSCULAR HGB CONC 31.7 g/dl (32.0-36.5); MEAN CORPUSCULAR VOLUME 88.6 fl (80.0-96.0); MONO # 0.9 10^3/uL (0.0-0.8); MONO % 11.1 % (0.0-5.0); NEUTROPHILS # 5.2 10^3/uL (1.5-8.5); NEUTROPHILS % 68.2 % (36.0-66.0); PLATELET COUNT, AUTOMATED 287 10^3/uL (150-450); RED BLOOD COUNT 4.73 10^6/uL (4.00-5.40); WHITE BLOOD COUNT 7.6 10^3/uL (4.0-10.0)
[2020-02-10 16:03] LABS: ALBUMIN 3.6 GM/DL (3.2-5.2); ALT/SGPT 32 U/L (12-78); BILIRUBIN,TOTAL 0.2 MG/DL (0.2-1.0); BLOOD UREA NITROGEN 11 MG/DL (7-18); CALCIUM LEVEL 8.6 MG/DL (8.5-10.1); CARBON DIOXIDE LEVEL 27 MEQ/L (21-32); CHLORIDE LEVEL 104 MEQ/L (98-107); CHOLESTEROL LEVEL 222 MG/DL (<200); CREATININE FOR GFR 0.79 MG/DL (0.55-1.30); FREE T4 0.65 NG/DL (0.76-1.46); GLOMERULAR FILTRATION RATE > 60.0 (>60); GLUCOSE, FASTING 106 MG/DL (70-100); HDL CHOLESTEROL 49 MG/DL (>40); HEMOGLOBIN A1c 5.6 %; LDL CHOLESTEROL 143 MG/DL (<100); NON-HDL-C 173 MG/DL; POTASSIUM SERUM 4.3 MEQ/L (3.5-5.1); SODIUM LEVEL 134 MEQ/L (136-145); TRIGLYCERIDES LEVEL 150 MG/DL (<150)
== END ==
LOC: M PLALAB 07:58
PROVIDERS: ATTEND Psychiatry & Neurology Child & Adolescent Psychiatry
DX: F84.0 Autistic disorder (principal)

== ENCOUNTER 2020-03-01 20:34 | Inpatient (IN) | payer MEDICAID ==
[~2020-03-01] VITALS: Ht 157.5 cm; Wt 95.3 kg
[2020-03-01 21:43] LABS: HEMATOCRIT 39.8 % (36.0-47.0); HEMOGLOBIN 12.8 g/dl (12.0-15.5); MEAN CORPUSCULAR HEMOGLOBIN 28.3 pg (27.0-33.0); MEAN CORPUSCULAR HGB CONC 32.2 g/dl (32.0-36.5); MEAN CORPUSCULAR VOLUME 87.9 fl (80.0-96.0); PLATELET COUNT, AUTOMATED 262 10^3/uL (150-450); RED BLOOD COUNT 4.53 10^6/uL (4.00-5.40); WHITE BLOOD COUNT 9.7 10^3/uL (4.0-10.0)
[2020-03-01 22:12] LABS: AMPHETAMINES LEVEL URINE NEGATIVE (NEGATIVE); BARBITURATES URINE NEGATIVE (NEGATIVE); BENZODIAZEPINES URINE NEGATIVE (NEGATIVE); CANNABINOIDS URINE NEGATIVE (NEGATIVE); COCAINE METABOLITE URINE NEGATIVE (NEGATIVE); METHADONE URINE NEGATIVE (NEGATIVE); OPIATES URINE NEGATIVE (NEGATIVE); PHENCYCLIDINE URINE NEGATIVE (NEGATIVE)
[2020-03-01 22:21] LABS: HCG, SERUM QUALITATIVE NEGATIVE (NEGATIVE)
[2020-03-01 22:35] LABS: ACETAMINOPHEN LEVEL < 2.0 UG/ML (10.0-30.0); ALBUMIN 3.4 GM/DL (3.2-5.2); ALT/SGPT 24 U/L (12-78); BILIRUBIN,DIRECT < 0.1 MG/DL (0.0-0.2); BILIRUBIN,TOTAL 0.1 MG/DL (0.2-1.0); BLOOD UREA NITROGEN 18 MG/DL (7-18); CALCIUM LEVEL 8.5 MG/DL (8.5-10.1); CARBON DIOXIDE LEVEL 26 MEQ/L (21-32); CHLORIDE LEVEL 107 MEQ/L (98-107); CREATININE FOR GFR 0.88 MG/DL (0.55-1.30); ETHYL ALCOHOL (ETHANOL) < 0.003 % (0.000-0.010); GLOMERULAR FILTRATION RATE > 60.0 (>60); GLUCOSE, FASTING 100 MG/DL (70-100); POTASSIUM SERUM 4.2 MEQ/L (3.5-5.1); SALICYLATE LEVEL < 1.7 MG/DL (5.0-30.0); SODIUM LEVEL 138 MEQ/L (136-145)
[2020-03-02] MEDS ORDERED: OXCA600T8 PO (00:13)
[2020-03-02] MEDS ORDERED: TRAZ-252 PO (00:13)
[2020-03-02] MEDS ORDERED: traZODone 50 MG TAB PO ONE (00:15)
[2020-03-02] MEDS ORDERED: PROPRANOLOL 20 MG TAB PO ONE (15:45)
[2020-03-02] MEDS ORDERED: MOM 30ML SUSPENSION UDC PO PRN (19:45)
[2020-03-02] MEDS ORDERED: ACETAMINOPHEN 500 MG TAB PO PRN (19:45)
[2020-03-02] MEDS ORDERED: MAALOX 30 ML SUSP *UDC PO PRN (19:45)
[2020-03-02 22:24] VITALS: BP 138/88
[2020-03-02] MEDS: ARIPiprazole 10 MG TAB PO SCH (23:28)
[2020-03-02] MEDS: OXcarbazepine 300 MG TAB PO SCH (23:28)
[2020-03-02] MEDS: traZODone 50 MG TAB PO PRN (23:28)
[2020-03-03 06:58] VITALS: BP 138/96
[2020-03-03] MEDS: VITAMIN E 400 INTERNATIONAL UNITS CAP PO SCH (09:26)
[2020-03-03] MEDS: OXcarbazepine 300 MG TAB PO SCH ×2 (09:26→20:33)
[2020-03-03] MEDS: hydrOXYzine 25 MG TAB PO SCH (09:26)
[2020-03-03] MEDS: ARIPiprazole 15 MG TAB (AbiLIFY) PO SCH (09:26)
[2020-03-03] MEDS: metFORMIN (GLUCOPHAGE) 500 MG TAB PO SCH ×2 (09:26→17:57)
[2020-03-03] MEDS: PROPRANOLOL 60 MG LA CAP PO SCH (09:27)
--- NOTE | 2020-03-03 10:42 | MHHPEPDOC ---
[facility] History & Physical History and Physical DATE OF ADMISSION: Mar 02, 2020 at 19:41 Subjective HPI: Grace presents today for suicidal ideations. Patient notes she is fighting with her parents, feeling depressed, and thoughts of suicide. She states that she attempted suicide in the past. Patient reported trying to strangle herself with a belt. She states the second time she attempted to slit her throat. Patient states that her mother had stopped her from committing suicide in the second attempt. Patient still sees Dr. Carter at [facility]. Patient notes TLS did not work out. MEDICATIONS: Patient is currently taking Abilify, Trileptal, Propanolol, Benztropine, Metformin, Trazodone, Melatonin, vitamin E, Calcium, Tylenol, and inaudible. FAMILY HISTORY: Family history no changes from previous. SOCIAL HISTORY - OCCUPATION: Currently not working, on disability. SOCIAL HISTORY - LIVING SITUATION: Patient is currently living with her parents. SOCIAL HISTORY - SUBSTANCE USE: Drug use history of alcoholism and marijuana use. Objective Appearance: Appears to be stated age. Well groomed. Well nourished. Affect: Flat at baseline autistic. Speech: Normal volume. Spontaneous and Fluid. Normal rate. Thought Form: Linear and goal directed. Cog: cognition grossly intact Judgement/Insight : Baseline . 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 Continue current medication regimen. Priorities are 1) risk for suicide and 2) ineffective coping. Patient will be treated conservatively as she does present mostly for family stressors as she had in the past. Stay is 3-5 days. Vital Signs Vital Signs Date Time Temp Pulse Resp B/P (MAP) Pulse Ox O2 Delivery O2 Flow Rate FiO2 03/03/20 09:27 88 138/96 03/03/20 06:58 97.6 16 Room Air 03/02/20 22:24 99 Medications Scheduled Aripiprazole (Aripiprazole) 15 Mg Tablet, 15 MG PO DAILY, (Reported) Aripiprazole (Aripiprazole) 10 Mg Tablet, 10 MG PO QHS, (Reported) Benztropine Mesylate (Benztropine Mesylate) 0.5 Mg Tablet, 0.5 MG PO QHS, (Reported) Benztropine Mesylate (Benztropine Mesylate) 0.5 Mg Tablet, 0.5 MG PO Q2D, (Reported) MORNING Calcium Carbonate/Vitamin D3 (Calcium 600-Vit D3 800 Tablet) 1 Each Tablet, 1 TAB PO DAILY, (Reported) Hydroxyzine Pamoate (Hydroxyzine Pamoate) 25 Mg Capsule, 25 MG PO DAILY, (Reported) PATIENT STATES NOT ALLERGIC TO THIS ONE Metformin HCl (Metformin HCl) 500 Mg Tablet, 500 MG PO BIDWM, (Reported) BREAKFAST AND DINNER Oxcarbazepine (Oxcarbazepine) 600 Mg Tablet, 600 MG PO BID, (Reported) Propranolol HCl (Propranolol HCl ER) 60 Mg Cap.sa.24h, 60 MG PO DAILY, (Reported) Vitamin E (Dl,Tocopheryl Acet) (Vitamin E) 400 Unit Capsule, 400 UNIT PO DAILY, (Reported) Scheduled PRN Acetaminophen (Acetaminophen) 500 Mg Tablet, 1,000 MG PO Q6H PRN for PAIN, (Reported) Melatonin (Melatonin) 3 Mg Tablet, 3 MG PO QHS PRN for INSOMNIA, (Reported) Trazodone HCl (Trazodone HCl) 50 Mg Tablet, 50 MG PO QHS PRN for INSOMNIA, (Reported) Allergies Coded Allergies: cariprazine (Verified Allergy, Intermediate, increased SI, 10/01/19) Penicillins (Verified Allergy, Mild, rash, 10/01/19) risperidone (Verified Allergy, Mild, RASH, 10/01/19) prednisone (Verified Adverse Reaction, Intermediate, anxiety, agitation, 05/17/19) quetiapine (Verified Adverse Reaction, Intermediate, OCULOGYRIC CRISIS, 05/17/19) A-FIB/CHADSVASC A-FIB History Current/History of A-Fib/PAF?: No BIGG PATEL DO Mar 03, 2020 10:41
--- NOTE | 2020-03-03 18:09 | HPEPDOC ---
[facility] Medical History & Physical Date of Admission Mar 03, 2020 Date of Service: Mar 03, 2020 History and Physical CHIEF COMPLAINT: Right ankle pain, right rash in axilla HISTORY OF PRESENT ILLNESS: Patient is a 34 year old female who is in the [facility] for suicidal ideation. Today, she was concern about her ankle pain. About a few weeks ago, she was stomping on the stair and developed right ankle pain. There is swelling in the posterior aspect of her ankle. She is able to walk, but limps. The pain has not improved. Otherwise, she recently developed a rash in her right axilla that is itchy. Otherwise, she denies fever/chills, lightheadedness/dizziness, changes in vision, sore throat, cough, dyspnea, chest pain, abdominal pain, diarrhea, or dysuria. She does tell me on her right hand she scalded her finger tip. appears to be superficial and peeling. PAST MEDICAL HISTORY: 1. Suicidal ideation 2. Suicidal attempt (cutting/stabbing) 3. Autism spectrum 4. Schizoaffective disorder 5. OCD 6. Depression 7. Anxiety 8. DM type 2 9. History of alcohol abuse (now sober 4 months) PAST SURGICAL HISTORY: 1. [place] teeth extraction SOCIAL HISTORY: Denies ever smoking. Recently became sober from alcohol 4 months ago. Denies recreation drug use. FAMILY HISTORY: Father has diabetes Mother has asthma ALLERGIES: Please see below. REVIEW OF SYSTEMS: CONSTITUTIONAL: Denies fever/chills, lightheadedness/dizziness HEENT: Denies headaches, denies sore throat CARDIOVASCULAR: Denies chest pain RESPIRATORY: Denies shortness of breath, denies cough GASTROINTESTINAL: Denies abdominal pain, denies diarrhea GENITOURINARY: Denies dysuria SKIN: Reports rash on right axilla, reports superficial peeling burn on right finger tip MUSCULOSKELETAL: Reports right ankle pain NEUROLOGICAL: Denies paresthesias HOME MEDICATIONS: Please see below. PHYSICAL EXAMINATION: VITAL SIGNS: Temperature 97.6, pulse 88, respiratory rate 16, blood pressure 138/96, pulse oximetry 99% on room air. GENERAL APPEARANCE: Comfortable, in no apparent distress HEENT: Head normocephalic/atraumatic, EOMI, sclera clear, pupils equal and around CARDIOVASCULAR: Regular rate and rhythm LUNGS: Lungs clear to auscultation bilaterally ABDOMEN: Obese, but soft, nontender, normal bowel sounds MUSCULOSKELETAL: Muscle strength 5/5. Right ankle swelling and tenderness EXTREMITIES: Bilateral pitting edema NEUROLOGICAL: CN 3-12 grossly intact, no focal deficits PSYCHIATRIC: Anxious LABORATORY DATA: See below. ASSESSMENT: Patient is a 34 year old female here in the [facility] with suicidal ideation. While here, she has concerns for her right ankle pain and right axilla rash. Will evaluate ankle pain with XR. She may take Tylenol for the pain. Will start patient on nystatin cream for the rash. Would recommend at least a 2 week course of nystatin cream . PLAN: 1. Suicidal Ideation - Currently in the [facility] being manage by psychiatry 2. Right ankle pain - Occurred a few weeks ago after stomping up the stairs. Ankle has focal swelling and tenderness. She is able to walk on it, but limps. It has not gotten better. Will start evaluation with XR. Okay to take Tylenol for the pain 3. Rash - Right axilla rash recently started. Will start nystatin cream. Should continue for 2 weeks. 4. Diabetes mellitus - Continue metformin Vital Signs Vital Signs Date Time Temp Pulse Resp B/P (MAP) Pulse Ox O2 Delivery O2 Flow Rate FiO2 03/03/20 09:27 88 138/96 03/03/20 06:58 97.6 16 Room Air 03/02/20 22:24 99 Home Medications Scheduled Aripiprazole (Aripiprazole) 15 Mg Tablet, 15 MG PO DAILY Aripiprazole (Aripiprazole) 10 Mg Tablet, 10 MG PO QHS Benztropine Mesylate (Benztropine Mesylate) 0.5 Mg Tablet, 0.5 MG PO QHS Benztropine Mesylate (Benztropine Mesylate) 0.5 Mg Tablet, 0.5 MG PO Q2D MORNING Calcium Carbonate/Vitamin D3 (Calcium 600-Vit D3 800 Tablet) 1 Each Tablet, 1 TAB PO DAILY Hydroxyzine Pamoate (Hydroxyzine Pamoate) 25 Mg Capsule, 25 MG PO DAILY PATIENT STATES NOT ALLERGIC TO THIS ONE Metformin HCl (Metformin HCl) 500 Mg Tablet, 500 MG PO BIDWM BREAKFAST AND DINNER Oxcarbazepine (Oxcarbazepine) 600 Mg Tablet, 600 MG PO BID Propranolol HCl (Propranolol HCl ER) 60 Mg Cap.sa.24h, 60 MG PO DAILY Vitamin E (Dl,Tocopheryl Acet) (Vitamin E) 400 Unit Capsule, 400 UNIT PO DAILY Scheduled PRN Acetaminophen (Acetaminophen) 500 Mg Tablet, 1,000 MG PO Q6H PRN for PAIN Melatonin (Melatonin) 3 Mg Tablet, 3 MG PO QHS PRN for INSOMNIA Trazodone HCl (Trazodone HCl) 50 Mg Tablet, 50 MG PO QHS PRN for INSOMNIA Allergies Coded Allergies: cariprazine (Verified Allergy, Intermediate, increased SI, 10/01/19) Penicillins (Verified Allergy, Mild, rash, 10/01/19) risperidone (Verified Allergy, Mild, RASH, 10/01/19) prednisone (Verified Adverse Reaction, Intermediate, anxiety, agitation, 05/17/19) quetiapine (Verified Adverse Reaction, Intermediate, OCULOGYRIC CRISIS, 05/17/19) A-FIB/CHADSVASC A-FIB History Current/History of A-Fib/PAF?: No JIM LUNA DO Mar 03, 2020 18:09
[2020-03-03 18:10] VITALS: BP 148/81
[2020-03-03] MEDS: NYSTATIN OINTMENT 15 GM TOP SCH (20:33)
[2020-03-03] MEDS: ARIPiprazole 10 MG TAB PO SCH (20:33)
[2020-03-04 07:00] VITALS: BP 151/81
[2020-03-04] MEDS: NYSTATIN OINTMENT 15 GM TOP SCH ×2 (08:57→20:47)
[2020-03-04] MEDS: hydrOXYzine 25 MG TAB PO SCH (09:00)
[2020-03-04] MEDS: VITAMIN E 400 INTERNATIONAL UNITS CAP PO SCH (09:00)
[2020-03-04] MEDS: PROPRANOLOL 60 MG LA CAP PO SCH (09:00)
[2020-03-04] MEDS: metFORMIN (GLUCOPHAGE) 500 MG TAB PO SCH ×2 (09:00→17:30)
[2020-03-04] MEDS: ARIPiprazole 15 MG TAB (AbiLIFY) PO SCH (09:00)
[2020-03-04] MEDS: OXcarbazepine 300 MG TAB PO SCH ×2 (09:01→20:46)
[2020-03-04 18:00] VITALS: BP 150/67
--- NOTE | 2020-03-04 18:12 | MHIPNPDOC ---
[facility] Progress Note Progress Note DATE OF SERVICE: 03/04/20 HISTORY: As per previous notes: "Grace presents today for suicidal ideations. Patient notes she is fighting with her parents, feeling depressed, and thoughts of suicide. She states that she attempted suicide in the past. Patient reported trying to strangle herself with a belt. She states the second time she attempted to slit her throat. Patient states that her mother had stopped her from committing suicide in the second attempt. Patient still sees Dr. Carter at [facility]. Patient notes TLS did not work out." VITAL SIGNS: See below. NEW TEST RESULTS: See below CURRENT MEDICATIONS: See below. MENTAL STATUS EXAMINATION: Patient is a 34-year old female, who is alert, dressed in hospital clothes, cooperative, with good hygiene and good eye contact. Restless, fidgety Speech: Is normal in rate, tone and volume. Spontaneous and fluent. Language skills are [intact Thought processes including: linear and coherent. Thought content: positive for anxious and obsessive thoughts, negative for thought delusions at this time, negative for SI/HI at this time. Abstract reasoning, and computation: she has some difficulty with substractions. Description of associations: fair Description of abnormal or psychotic thoughts: She is not suicidal, not homicidal and not psychotic at this time but she says she has been having auditory hallucinations, commanding in nature, that have been telling her to kil l herself. He denies them at this time.. Judgment: poor. Insight: poor. Orientation: x 3. Recent and remote memory: good. Attention span and concentration: good. Language: adequate. Fund of knowledge: average. Mood: anxious. Affect: congruent with mood, anxious. 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 States she recently tired to strangle herself with a belt and most recently she was trying to "cut my throat, I was going for m carotid artery and I called my mom and told her, hey mom, come to see, I have this gift for you". She says this while she is laughing. Then, she says that she only wants her mother to understand how bad is to be depressed and she only wants her mother to feel her pain while she is trying to hurt herself but doesn't want her mother sad once she dies, if she would be successful in her attempt. MANAGEMENT PLAN: Will continue with current treatment plan TIME SPENT: 20 minutes. Vital Signs Vital Signs Date Time Temp Pulse Resp B/P (MAP) Pulse Ox O2 Delivery O2 Flow Rate FiO2 03/04/20 09:00 87 130/73 03/04/20 07:00 97.5 18 99 Room Air Current Medications Current Medications Medications (Trade) Dose Ordered Sig/Cory Route PRN Reason Start Time Stop Time Status Last Admin Dose Admin Acetaminophen (Tylenol Tab) 1,000 mg Q6H PRN PO PAIN 03/02/20 19:45 Al Hydrox/Mg Hydrox/Simethicone (Mylanta) 30 ml Q4HP PRN PO HEARTBURN/INDIGESTION 03/02/20 19:45 Aripiprazole (AbiLIFY) 10 mg QHS PO 03/02/20 21:00 03/03/20 20:33 Aripiprazole (AbiLIFY) 15 mg DAILY PO 03/03/20 09:00 03/04/20 09:00 Home Med (Med Rec Complete!) ASDIRECTED XX 03/02/20 00:15 03/02/20 00:29 DC Hydroxyzine HCl (Atarax) 25 mg DAILY PO 03/03/20 09:00 03/03/20 09:26 Magnesium Hydroxide (Milk Of Magnesia) 30 ml DAILYPRN PRN PO CONSTIPATION 03/02/20 19:45 Metformin HCl (Glucophage) 500 mg BIDWM PO 03/03/20 08:00 03/04/20 17:30 Nystatin (Mycostatin) 1 dose BID TOP 03/03/20 21:00 03/04/20 08:57 Oxcarbazepine (Trileptal) 600 mg BID PO 03/02/20 21:00 03/04/20 09:01 Propranolol HCl (Inderal La) 60 mg DAILY PO 03/03/20 09:00 03/04/20 09:00 Trazodone HCl (Desyrel) 50 mg QHS PRN PO INSOMNIA 03/02/20 19:45 03/02/20 23:28 Vitamin E (Vitamin E) 400 units DAILY PO 03/03/20 09:00 03/04/20 09:00 Allergies Coded Allergies: cariprazine (Verified Allergy, Intermediate, increased SI, 10/01/19) Penicillins (Verified Allergy, Mild, rash, 10/01/19) risperidone (Verified Allergy, Mild, RASH, 10/01/19) prednisone (Verified Adverse Reaction, Intermediate, anxiety, agitation, 05/17/19) quetiapine (Verified Adverse Reaction, Intermediate, OCULOGYRIC CRISIS, 05/17/19) PRIMO GOLDSTEIN MD Mar 04, 2020 18:03
[2020-03-04] MEDS: ARIPiprazole 10 MG TAB PO SCH (20:46)
[2020-03-05 06:36] VITALS: BP 154/95
[2020-03-05] MEDS: NYSTATIN OINTMENT 15 GM TOP SCH ×2 (09:10→21:05)
[2020-03-05] MEDS: hydrOXYzine 25 MG TAB PO SCH (09:12)
[2020-03-05] MEDS: VITAMIN E 400 INTERNATIONAL UNITS CAP PO SCH (09:12)
[2020-03-05] MEDS: OXcarbazepine 300 MG TAB PO SCH ×2 (09:12→21:06)
[2020-03-05] MEDS: ARIPiprazole 15 MG TAB (AbiLIFY) PO SCH (09:12)
[2020-03-05] MEDS: metFORMIN (GLUCOPHAGE) 500 MG TAB PO SCH ×2 (09:12→17:51)
[2020-03-05] MEDS: PROPRANOLOL 60 MG LA CAP PO SCH (09:13)
--- NOTE | 2020-03-05 14:44 | MHIPNPDOC ---
[facility] Progress Note Progress Note DATE OF SERVICE: 03/05/20 HISTORY: As per previous notes: "Grace presents today for suicidal ideations. Patient notes she is fighting with her parents, feeling depressed, and thoughts of suicide. She states that she attempted suicide in the past. Patient reported trying to strangle herself with a belt. She states the second time she attempted to slit her throat. Patient states that her mother had stopped her from committing suicide in the second attempt. Patient still sees Dr. Carter at [facility]. Patient notes TLS did not work out." VITAL SIGNS: See below. NEW TEST RESULTS: See below CURRENT MEDICATIONS: See below. MENTAL STATUS EXAMINATION: Patient is a 34-year old female, who is alert, dressed in hospital clothes, cooperative, with good hygiene and good eye contact. She was punching the jaquez today. Speech: Is normal in rate, tone and volume. Spontaneous and fluent. Language skills are intact Thought processes including: concrete with some delayed responses Thought content: positive for anxious/ depressed thoughts, negative for SI/HI at this time, negative for thought delusions Abstract reasoning, and computation: she has some difficulty with substractions, definitely with abstract reasoning. Description of associations: not loose Description of abnormal or psychotic thoughts: She is not suicidal, not homicidal and not psychotic at this time but she says she has been experiencing angry thoughts. Judgment: poor. Insight: poor. Orientation: x 3. Recent and remote memory: fair Attention span and concentration: good. Language: adequate. Fund of knowledge: average. Mood: anxious/depressed. 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 she also reported more depression compared to yesterday. Encouraged her to talk with staff if she feels unsafe, to journal, to practice positive thinking, to practice being empathetic. MANAGEMENT PLAN: Will continue with current treatment plan TIME SPENT: 20 minutes. Vital Signs Vital Signs Date Time Temp Pulse Resp B/P (MAP) Pulse Ox O2 Delivery O2 Flow Rate FiO2 03/05/20 09:13 81 179/79 03/05/20 06:36 97.4 16 100 Room Air Current Medications Current Medications Medications (Trade) Dose Ordered Sig/Cory Route PRN Reason Start Time Stop Time Status Last Admin Dose Admin Acetaminophen (Tylenol Tab) 1,000 mg Q6H PRN PO PAIN 03/02/20 19:45 Al Hydrox/Mg Hydrox/Simethicone (Mylanta) 30 ml Q4HP PRN PO HEARTBURN/INDIGESTION 03/02/20 19:45 Aripiprazole (AbiLIFY) 10 mg QHS PO 03/02/20 21:00 03/04/20 20:46 Aripiprazole (AbiLIFY) 15 mg DAILY PO 03/03/20 09:00 03/05/20 09:12 Home Med (Med Rec Complete!) ASDIRECTED XX 03/02/20 00:15 03/02/20 00:29 DC Hydroxyzine HCl (Atarax) 25 mg DAILY PO 03/03/20 09:00 03/05/20 09:12 Magnesium Hydroxide (Milk Of Magnesia) 30 ml DAILYPRN PRN PO CONSTIPATION 03/02/20 19:45 Metformin HCl (Glucophage) 500 mg BIDWM PO 03/03/20 08:00 03/05/20 09:12 Nystatin (Mycostatin) 1 dose BID TOP 03/03/20 21:00 03/05/20 09:10 Oxcarbazepine (Trileptal) 600 mg BID PO 03/02/20 21:00 03/05/20 09:12 Propranolol HCl (Inderal La) 60 mg DAILY PO 03/03/20 09:00 03/05/20 09:13 Trazodone HCl (Desyrel) 50 mg QHS PRN PO INSOMNIA 03/02/20 19:45 03/02/20 23:28 Vitamin E (Vitamin E) 400 units DAILY PO 03/03/20 09:00 03/05/20 09:12 Allergies Coded Allergies: cariprazine (Verified Allergy, Intermediate, increased SI, 10/01/19) Penicillins (Verified Allergy, Mild, rash, 10/01/19) risperidone (Verified Allergy, Mild, RASH, 10/01/19) prednisone (Verified Adverse Reaction, Intermediate, anxiety, agitation, 05/17/19) quetiapine (Verified Adverse Reaction, Intermediate, OCULOGYRIC CRISIS, 05/17/19) PRIMO GOLDSTEIN MD Mar 05, 2020 14:44
[2020-03-05 18:00] VITALS: BP 134/78
[2020-03-05] MEDS: ARIPiprazole 10 MG TAB PO SCH (21:06)
[2020-03-06 06:12] VITALS: BP 126/62
[2020-03-06] MEDS: OXcarbazepine 300 MG TAB PO SCH ×2 (08:45→21:08)
[2020-03-06] MEDS: metFORMIN (GLUCOPHAGE) 500 MG TAB PO SCH ×2 (08:45→17:23)
[2020-03-06] MEDS: hydrOXYzine 25 MG TAB PO SCH (08:45)
[2020-03-06] MEDS: ARIPiprazole 15 MG TAB (AbiLIFY) PO SCH (08:45)
[2020-03-06] MEDS: NYSTATIN OINTMENT 15 GM TOP SCH ×2 (08:45→21:09)
[2020-03-06] MEDS: PROPRANOLOL 60 MG LA CAP PO SCH (08:46)
[2020-03-06] MEDS: VITAMIN E 400 INTERNATIONAL UNITS CAP PO SCH (08:46)
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
[2020-03-06 16:45] VITALS: BP 140/80
[2020-03-06] MEDS: ARIPiprazole 10 MG TAB PO SCH (21:08)
[2020-03-06] MEDS: traZODone 50 MG TAB PO PRN (21:12)
[2020-03-07 06:33] VITALS: BP 124/68
[2020-03-07] MEDS: metFORMIN (GLUCOPHAGE) 500 MG TAB PO SCH ×2 (07:32→18:31)
[2020-03-07] MEDS: NYSTATIN OINTMENT 15 GM TOP SCH ×2 (09:49→21:00)
[2020-03-07] MEDS: VITAMIN E 400 INTERNATIONAL UNITS CAP PO SCH (09:49)
[2020-03-07] MEDS: OXcarbazepine 300 MG TAB PO SCH ×2 (09:49→20:47)
[2020-03-07] MEDS: ARIPiprazole 15 MG TAB (AbiLIFY) PO SCH (09:50)
[2020-03-07] MEDS: PROPRANOLOL 60 MG LA CAP PO SCH (09:50)
[2020-03-07] MEDS: hydrOXYzine 25 MG TAB PO SCH (09:50)
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
[2020-03-07 16:22] VITALS: BP 124/68
--- NOTE | 2020-03-07 19:27 | ECGEPIP ---
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
[2020-03-07] MEDS: ARIPiprazole 10 MG TAB PO SCH (20:46)
[2020-03-08 06:17] VITALS: BP 116/66
[2020-03-08] MEDS: metFORMIN (GLUCOPHAGE) 500 MG TAB PO SCH (07:35)
[2020-03-08] MEDS: OXcarbazepine 300 MG TAB PO SCH (09:37)
[2020-03-08] MEDS: hydrOXYzine 25 MG TAB PO SCH (09:37)
[2020-03-08] MEDS: ARIPiprazole 15 MG TAB (AbiLIFY) PO SCH (09:37)
[2020-03-08 09:38] VITALS: BP 132/67
[2020-03-08] MEDS: NYSTATIN OINTMENT 15 GM TOP SCH (09:38)
[2020-03-08] MEDS: PROPRANOLOL 60 MG LA CAP PO SCH (09:38)
[2020-03-08] MEDS: VITAMIN E 400 INTERNATIONAL UNITS CAP PO SCH (09:39)
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
--- NOTE | 2020-03-22 13:19 | REP ---
RIGHT ANKLE SERIES: CLINICAL: Ankle pain. TECHNIQUE: AP, lateral, bilateral oblique views of the right ankle. FINDINGS: Osseous structures, joint spaces and surrounding soft tissues are normal. No acute fracture or dislocation. No overt arthritic changes. No subcutaneous emphysema or foreign body. IMPRESSION: Age appropriate right ankle radiographs. No evidence for acute injury or obvious pathology. MTDD
== END 2020-03-08 13:35 | disposition home or self-care (01) | DRG 757 ==
LOC: M ED 20:34 → M ED INP 03-02 19:41 → M PSY 03-02 22:15
PROVIDERS: ADMIT Psychiatry & Neurology Psychiatry; ATTEND Psychiatry & Neurology Addiction Medicine
DX: F84.0 Autistic disorder (principal); R45.851 Suicidal ideations; F41.9 Anxiety disorder, unspecified; F10.950 Alcohol use, unspecified with alcohol-induced psychotic disorder with delusions; F10.929 Alcohol use, unspecified with intoxication, unspecified; M25.571 Pain in right ankle and joints of right foot; E11.9 Type 2 diabetes mellitus without complications; R21 Rash and other nonspecific skin eruption; F33.8 Other recurrent depressive disorders; Z79.899 Other long term (current) drug therapy; Z79.84 Long term (current) use of oral hypoglycemic drugs; Z88.0 Allergy status to penicillin; Z88.8 Allergy status to other drugs, medicaments and biological substances

== ENCOUNTER 2020-04-18 11:18 | Inpatient (IN) | payer MEDICAID ==
[~2020-04-18] VITALS: Ht 157.5 cm; Wt 96.5 kg
[2020-04-18 12:10] LABS: HEMATOCRIT 39.6 % (36.0-47.0); HEMOGLOBIN 12.8 g/dl (12.0-15.5); MEAN CORPUSCULAR HEMOGLOBIN 27.7 pg (27.0-33.0); MEAN CORPUSCULAR HGB CONC 32.3 g/dl (32.0-36.5); MEAN CORPUSCULAR VOLUME 85.7 fl (80.0-96.0); PLATELET COUNT, AUTOMATED 262 10^3/uL (150-450); RED BLOOD COUNT 4.62 10^6/uL (4.00-5.40); WHITE BLOOD COUNT 8.8 10^3/uL (4.0-10.0)
[2020-04-18 12:38] LABS: HCG, SERUM QUALITATIVE NEGATIVE (NEGATIVE)
[2020-04-18 12:52] LABS: ACETAMINOPHEN LEVEL < 2.0 UG/ML (10.0-30.0); ALBUMIN 3.7 GM/DL (3.2-5.2); ALT/SGPT 24 U/L (12-78); BILIRUBIN,DIRECT < 0.1 MG/DL (0.0-0.2); BILIRUBIN,TOTAL 0.2 MG/DL (0.2-1.0); BLOOD UREA NITROGEN 14 MG/DL (7-18); CALCIUM LEVEL 9.2 MG/DL (8.5-10.1); CARBON DIOXIDE LEVEL 24 MEQ/L (21-32); CHLORIDE LEVEL 104 MEQ/L (98-107); CREATININE FOR GFR 0.76 MG/DL (0.55-1.30); ETHYL ALCOHOL (ETHANOL) < 0.003 % (0.000-0.010); GLOMERULAR FILTRATION RATE > 60.0 (>60); GLUCOSE, FASTING 107 MG/DL (70-100); POTASSIUM SERUM 4.5 MEQ/L (3.5-5.1); SALICYLATE LEVEL < 1.7 MG/DL (5.0-30.0); SODIUM LEVEL 135 MEQ/L (136-145); TOTAL PROTEIN 7.4 GM/DL (6.4-8.2)
[2020-04-18 12:54] LABS: AMPHETAMINES LEVEL URINE NEGATIVE (NEGATIVE); BARBITURATES URINE NEGATIVE (NEGATIVE); BENZODIAZEPINES URINE NEGATIVE (NEGATIVE); CANNABINOIDS URINE NEGATIVE (NEGATIVE); COCAINE METABOLITE URINE NEGATIVE (NEGATIVE); METHADONE URINE NEGATIVE (NEGATIVE); OPIATES URINE NEGATIVE (NEGATIVE); PHENCYCLIDINE URINE NEGATIVE (NEGATIVE)
[2020-04-18] MEDS ORDERED: ACETAMINOPHEN TAB 650MG DOSE (2X325MG) PO ONE (17:30)
[2020-04-18] MEDS ORDERED: metFORMIN (GLUCOPHAGE) 500 MG TAB PO SCH (18:00)
[2020-04-18] MEDS ORDERED: OXcarbazepine 300 MG TAB PO SCH (21:00)
[2020-04-18] MEDS ORDERED: traZODone 50 MG TAB PO ONE (21:30)
[2020-04-18] MEDS ORDERED: BENZTROPINE 0.5 MG TAB PO ONE (21:30)
[2020-04-19] MEDS ORDERED: ARIPiprazole 10 MG TAB PO ONE (07:30)
[2020-04-19] MEDS ORDERED: OXcarbazepine 300 MG TAB PO ONE (07:30)
[2020-04-19] MEDS ORDERED: metFORMIN (GLUCOPHAGE) 500 MG TAB PO ONE (07:30)
[2020-04-19] MEDS ORDERED: VITAMIN D (CHOLECALCIFEROL) 400 INTERNATIONAL UNITS TAB PO ONE (07:30)
[2020-04-19] MEDS ORDERED: ACETAMINOPHEN TAB 650MG DOSE (2X325MG) PO ONE (07:30)
[2020-04-19] MEDS ORDERED: VITAMIN E 400 INTERNATIONAL UNITS CAP PO ONE (07:30)
[2020-04-19] MEDS ORDERED: BENZTROPINE 0.5 MG TAB PO ONE (07:30)
[2020-04-19] MEDS ORDERED: hydrOXYzine 25 MG TAB PO ONE (07:30)
[2020-04-19] MEDS ORDERED: CALCIUM CARBONATE 500 MG CHEW U/D PO ONE (07:30)
[2020-04-19] MEDS ORDERED: MAALOX 30 ML SUSP *UDC PO PRN (13:15)
[2020-04-19] MEDS ORDERED: MOM 30ML SUSPENSION UDC PO PRN (13:15)
[2020-04-19] MEDS ORDERED: ACETAMINOPHEN TAB 650MG DOSE (2X325MG) PO PRN (13:15)
[2020-04-19 15:11] VITALS: BP 136/70
[2020-04-19] MEDS: traZODone 50 MG TAB PO PRN (21:38)
[2020-04-19] MEDS: ARIPiprazole 15 MG TAB (AbiLIFY) PO SCH (21:38)
--- NOTE | 2020-04-20 07:55 | ECGEPIP ---
[facility] - ED Test Date: 2020-04-18 Pat Name: LISA HUGO Department: Room: [place] [address] Gender: Female Management Supervisor: nicci : 1985 Requested By: Dionne Kumar Order Number: [id number] Reading MD: Dionne Kumar Measurements Intervals [place] Rate: 84 P: 48 NM: 148 QRS: 49 QRSD: 67 T: 52 QT: 340 QTc: 404 Interpretive Statements SINUS RHYTHM DELAYED R PROGRESION INCREASED RATE 03/02/20 Electronically Signed on 04-20-2020 7:54:53 EDT by Dionne Kumar
[2020-04-20] MEDS ORDERED: INFLUENZA QUADRIVALENT PF VACCINE 0.5ML SYRINGE IM ONE (09:00)
[2020-04-20] MEDS ORDERED: PROPRANOLOL 20 MG TAB PO SCH (09:00)
[2020-04-20] MEDS: OXcarbazepine 300 MG TAB PO SCH (09:40)
[2020-04-20] MEDS: ARIPiprazole 15 MG TAB (AbiLIFY) PO SCH ×2 (09:41→20:20)
[2020-04-20] MEDS: PROPRANOLOL 60 MG LA CAP PO SCH (09:41)
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
[2020-04-20] MEDS ORDERED: NYSTATIN 100,000 UNITS/GM TOPICAL PWD 15 GM TOP PRN (10:00)
[2020-04-20] MEDS: hydrOXYzine 50 MG TAB PO PRN ×2 (15:17→21:17)
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
[2020-04-20 16:45] VITALS: BP 148/89
[2020-04-20] MEDS: metFORMIN (GLUCOPHAGE) 500 MG TAB PO SCH (17:43)
[2020-04-20] MEDS: traZODone 50 MG TAB PO PRN (21:43)
[2020-04-21 06:53] VITALS: BP 134/60
[2020-04-21] MEDS: OXcarbazepine 300 MG TAB PO SCH ×2 (07:57→20:01)
[2020-04-21] MEDS: ARIPiprazole 15 MG TAB (AbiLIFY) PO SCH ×2 (07:57→20:01)
[2020-04-21] MEDS: metFORMIN (GLUCOPHAGE) 500 MG TAB PO SCH ×2 (07:58→17:01)
[2020-04-21] MEDS: PROPRANOLOL 60 MG LA CAP PO SCH (07:58)
[2020-04-21] MEDS: BENZTROPINE 0.5 MG TAB PO SCH ×2 (09:49→20:01)
[2020-04-21] MEDS ORDERED: OXcarbazepine 300 MG TAB PO ONE (10:00)
[2020-04-21 16:01] VITALS: BP 136/76
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
[2020-04-21] MEDS: hydrOXYzine 50 MG TAB PO PRN (20:01)
[2020-04-22 06:43] VITALS: BP 127/92
[2020-04-22] MEDS: metFORMIN (GLUCOPHAGE) 500 MG TAB PO SCH ×2 (07:22→17:18)
[2020-04-22] MEDS: OXcarbazepine 300 MG TAB PO SCH ×2 (09:23→20:42)
[2020-04-22] MEDS: BENZTROPINE 0.5 MG TAB PO SCH ×2 (09:23→20:42)
[2020-04-22] MEDS: hydrOXYzine 50 MG TAB PO PRN ×2 (09:23→20:42)
[2020-04-22] MEDS: ARIPiprazole 15 MG TAB (AbiLIFY) PO SCH ×2 (09:23→20:42)
[2020-04-22] MEDS: PROPRANOLOL 60 MG LA CAP PO SCH (09:25)
--- NOTE | 2020-04-22 12:59 | MHIPNPDOC ---
[facility] Progress Note Progress Note DATE OF SERVICE: 04/22/20 Subjective HPI: Grace presents today for a follow up. She reports that she's doing fine other than her suicidal ideation. MEDICATIONS: She reports that she is tolerating her medications without issues. Objective Appearance: Hygiene is fair. Behavior: Associations are autistic. Affect: Flat with some reactivity at times per her baseline. Thought Form: Linear and generally logical. Thought Content: Reports intermittent suicidal thoughts. Denies homicidal thoughts. Judgement: Baseline. Insight: Baseline. Assessment F84.0 Autistic disorder F43.20 Adjustment disorder, unspecified F10.20 Alcohol dependence, uncomplicated Plan Continue medications as are current. Will talk to Gayle Freeman about her discharge. Will continue treatment plan. Vital Signs Vital Signs Date Time Temp Pulse Resp B/P (MAP) Pulse Ox O2 Delivery O2 Flow Rate FiO2 04/22/20 09:25 77 148/88 04/22/20 06:43 98.5 18 97 Room Air Current Medications Current Medications Medications (Trade) Dose Ordered Sig/Cory Route PRN Reason Start Time Stop Time Status Last Admin Dose Admin Acetaminophen (Tylenol Tab) 650 mg Q6HP PRN PO HEADACHE or DISCOMFORT 04/19/20 13:15 Al Hydrox/Mg Hydrox/Simethicone (Mylanta) 30 ml Q4HP PRN PO HEARTBURN/INDIGESTION 04/19/20 13:15 Aripiprazole (AbiLIFY) 15 mg BID PO 04/19/20 21:00 04/22/20 09:23 Benztropine Mesylate (Cogentin) 0.5 mg BID PO 04/21/20 09:00 04/22/20 09:23 Home Med (Med Rec Complete!) ASDIRECTED XX 04/18/20 15:45 04/18/20 15:46 DC Hydroxyzine HCl (Atarax) 50 mg Q6HP PRN PO Anxiety 04/20/20 13:30 04/22/20 09:23 Magnesium Hydroxide (Milk Of Magnesia) 30 ml DAILYPRN PRN PO CONSTIPATION 04/19/20 13:15 Metformin HCl (Glucophage) 500 mg BIDWM PO 04/18/20 18:00 04/19/20 07:31 DC 04/18/20 18:14 Metformin HCl (Glucophage) 500 mg BIDWM PO 04/20/20 18:00 04/22/20 07:22 Nystatin (Mycostatin Powder, Nystop) APPLY TO ARMPITS BIDP PRN TOP RASH 04/20/20 10:00 Oxcarbazepine (Trileptal) 300 mg QAM PO 04/20/20 09:00 04/21/20 09:24 DC 04/21/20 07:57 Oxcarbazepine (Trileptal) 600 mg BID PO 04/21/20 21:00 04/22/20 09:23 Oxcarbazepine (Trileptal) 600 mg QHS PO 04/18/20 21:00 04/19/20 07:31 DC 04/18/20 21:40 Propranolol HCl (Inderal La) 60 mg DAILY PO 04/20/20 09:00 04/22/20 09:25 Propranolol HCl (Inderal) 60 mg DAILY PO 04/20/20 09:00 04/19/20 14:20 DC Trazodone HCl (Desyrel) 50 mg QHSP PRN PO INSOMNIA 04/19/20 13:15 04/20/20 21:43 Allergies Coded Allergies: cariprazine (Verified Allergy, Intermediate, increased SI, 04/18/20) Penicillins (Verified Allergy, Mild, rash, 04/18/20) risperidone (Verified Allergy, Mild, RASH, 04/18/20) prednisone (Verified Adverse Reaction, Intermediate, anxiety, agitation, 04/18/20) quetiapine (Verified Adverse Reaction, Intermediate, OCULOGYRIC CRISIS, 04/18/20) BIGG PATEL DO Apr 22, 2020 12:59
[2020-04-22 16:21] VITALS: BP 140/78
[2020-04-23 06:45] VITALS: BP 120/70
[2020-04-23] MEDS: metFORMIN (GLUCOPHAGE) 500 MG TAB PO SCH ×2 (07:33→17:32)
[2020-04-23] MEDS: hydrOXYzine 50 MG TAB PO PRN ×2 (08:52→20:05)
[2020-04-23] MEDS: BENZTROPINE 0.5 MG TAB PO SCH ×2 (08:52→20:05)
[2020-04-23 08:53] VITALS: BP 131/66
[2020-04-23] MEDS: ARIPiprazole 15 MG TAB (AbiLIFY) PO SCH ×2 (08:53→20:05)
[2020-04-23] MEDS: OXcarbazepine 300 MG TAB PO SCH ×2 (08:53→20:05)
[2020-04-23] MEDS: PROPRANOLOL 60 MG LA CAP PO SCH (08:53)
--- NOTE | 2020-04-23 15:00 | MHIPNPDOC ---
[facility] Progress Note Progress Note DATE OF SERVICE: 04/23/20 HPI: Grace presents today for a follow up. Patient states she is doing better and has no suicidal thoughts. She asks if she will be here through election day, but other than that no complaints. MEDICATIONS: Patient denies any side effects from the medications. Objective Appearance: Well nourished. Well groomed. Clean Hygiene. Affect: Flat at baseline. Thought Content: No thoughts of self harm. No evidence of aggressive or homicidal ideation. No evidence of delusions. No evidence of suicidal ideation. Judgement: baseline. Insight: baseline. Assessment F84.0 Autistic disorder F43.20 Adjustment disorder, unspecified Plan Continue current medication regimen. Send the treatment to primary provider and discussed psychotherapy homework to be completed. Vital Signs Vital Signs Date Time Temp Pulse Resp B/P (MAP) Pulse Ox O2 Delivery O2 Flow Rate FiO2 04/23/20 08:53 87 131/66 04/23/20 06:45 97.6 16 98 Room Air Current Medications Current Medications Medications (Trade) Dose Ordered Sig/Cory Route PRN Reason Start Time Stop Time Status Last Admin Dose Admin Acetaminophen (Tylenol Tab) 650 mg Q6HP PRN PO HEADACHE or DISCOMFORT 04/19/20 13:15 Al Hydrox/Mg Hydrox/Simethicone (Mylanta) 30 ml Q4HP PRN PO HEARTBURN/INDIGESTION 04/19/20 13:15 Aripiprazole (AbiLIFY) 15 mg BID PO 04/19/20 21:00 04/23/20 08:53 Benztropine Mesylate (Cogentin) 0.5 mg BID PO 04/21/20 09:00 04/23/20 08:52 Home Med (Med Rec Complete!) ASDIRECTED XX 04/18/20 15:45 04/18/20 15:46 DC Hydroxyzine HCl (Atarax) 50 mg Q6HP PRN PO Anxiety 04/20/20 13:30 04/23/20 08:52 Magnesium Hydroxide (Milk Of Magnesia) 30 ml DAILYPRN PRN PO CONSTIPATION 04/19/20 13:15 Metformin HCl (Glucophage) 500 mg BIDWM PO 04/18/20 18:00 04/19/20 07:31 DC 04/18/20 18:14 Metformin HCl (Glucophage) 500 mg BIDWM PO 04/20/20 18:00 04/23/20 07:33 Nystatin (Mycostatin Powder, Nystop) APPLY TO ARMPITS BIDP PRN TOP RASH 04/20/20 10:00 Oxcarbazepine (Trileptal) 300 mg QAM PO 04/20/20 09:00 04/21/20 09:24 DC 04/21/20 07:57 Oxcarbazepine (Trileptal) 600 mg BID PO 04/21/20 21:00 04/23/20 08:53 Oxcarbazepine (Trileptal) 600 mg QHS PO 04/18/20 21:00 04/19/20 07:31 DC 04/18/20 21:40 Propranolol HCl (Inderal La) 60 mg DAILY PO 04/20/20 09:00 04/23/20 08:53 Propranolol HCl (Inderal) 60 mg DAILY PO 04/20/20 09:00 04/19/20 14:20 DC Trazodone HCl (Desyrel) 50 mg QHSP PRN PO INSOMNIA 04/19/20 13:15 04/20/20 21:43 Allergies Coded Allergies: cariprazine (Verified Allergy, Intermediate, increased SI, 04/18/20) Penicillins (Verified Allergy, Mild, rash, 04/18/20) risperidone (Verified Allergy, Mild, RASH, 04/18/20) prednisone (Verified Adverse Reaction, Intermediate, anxiety, agitation, 04/18/20) quetiapine (Verified Adverse Reaction, Intermediate, OCULOGYRIC CRISIS, 04/18/20) BIGG PATEL DO Apr 23, 2020 15:00
[2020-04-23 16:25] VITALS: BP 132/68
[2020-04-24 06:40] VITALS: BP 128/58
[2020-04-24] MEDS: BENZTROPINE 0.5 MG TAB PO SCH (08:53)
[2020-04-24] MEDS: ARIPiprazole 15 MG TAB (AbiLIFY) PO SCH (08:54)
[2020-04-24] MEDS: metFORMIN (GLUCOPHAGE) 500 MG TAB PO SCH (08:54)
[2020-04-24] MEDS: PROPRANOLOL 60 MG LA CAP PO SCH (08:54)
[2020-04-24] MEDS: OXcarbazepine 300 MG TAB PO SCH (08:54)
[2020-04-24] MEDS: hydrOXYzine 50 MG TAB PO PRN (08:54)
[2020-04-24] MEDS ORDERED: TRAZ-252 PO (09:43)
[2020-04-24] MEDS ORDERED: HYDR1CAP25 PO (09:43)
[2020-04-24] MEDS ORDERED: OXCA600T8 PO (09:43)
[2020-04-24] MEDS ORDERED: PROP60CA PO (09:43)
[2020-04-24] MEDS ORDERED: ARIP1TAB10 PO (09:43)
[2020-04-24] MEDS ORDERED: BENZ0.5T23 PO (09:43)
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
== END 2020-04-24 13:25 | disposition home or self-care (01) | DRG 757 ==
LOC: M ED 11:18 → M ED INP 04-19 13:06 → M PSY 04-19 14:32
PROVIDERS: ADMIT Psychiatry & Neurology Addiction Medicine; ATTEND Psychiatry & Neurology Psychiatry
DX: F84.0 Autistic disorder (principal); F25.9 Schizoaffective disorder, unspecified; Z91.5 Personal history of self-harm; F32.9 Major depressive disorder, single episode, unspecified; F41.9 Anxiety disorder, unspecified; E11.9 Type 2 diabetes mellitus without complications; R21 Rash and other nonspecific skin eruption; F10.21 Alcohol dependence, in remission; Z79.899 Other long term (current) drug therapy; Z88.0 Allergy status to penicillin; Z88.8 Allergy status to other drugs, medicaments and biological substances; R45.851 Suicidal ideations; F43.20 Adjustment disorder, unspecified; Z63.8 Other specified problems related to primary support group

== ENCOUNTER 2020-04-30 21:33 | Inpatient (IN) | payer MEDICAID ==
[~2020-04-30] VITALS: Ht 157.5 cm; Wt 97.3 kg
[2020-04-30] MEDS ORDERED: INDE60CA4 PO (22:03)
[2020-04-30] MEDS ORDERED: TRIL600T PO (22:03)
[2020-04-30 22:07] LABS: BASO # 0.1 10^3/uL (0.0-0.2); BASO % 0.6 % (0.0-1.0); EOS # 0.3 10^3/uL (0.0-0.5); EOS % 2.7 % (0.0-3.0); HEMATOCRIT 41.2 % (36.0-47.0); HEMOGLOBIN 12.9 g/dl (12.0-15.5); LYMPH # 1.9 10^3/uL (1.5-5.0); MEAN CORPUSCULAR HEMOGLOBIN 26.8 pg (27.0-33.0); MEAN CORPUSCULAR HGB CONC 31.3 g/dl (32.0-36.5); MEAN CORPUSCULAR VOLUME 85.7 fl (80.0-96.0); MONO % 8.6 % (0.0-5.0); NEUTROPHILS # 8.6 10^3/uL (1.5-8.5); NEUTROPHILS % 71.6 % (36.0-66.0); PLATELET COUNT, AUTOMATED 329 10^3/uL (150-450); RED BLOOD COUNT 4.81 10^6/uL (4.00-5.40)
[2020-04-30 22:29] LABS: HCG, SERUM QUALITATIVE NEGATIVE (NEGATIVE)
[2020-04-30 22:41] LABS: BLOOD UREA NITROGEN 12 MG/DL (7-18); CALCIUM LEVEL 8.5 MG/DL (8.5-10.1); CARBON DIOXIDE LEVEL 25 MEQ/L (21-32); CHLORIDE LEVEL 105 MEQ/L (98-107); CREATININE FOR GFR 0.95 MG/DL (0.55-1.30); GLOMERULAR FILTRATION RATE > 60.0 (>60); GLUCOSE, FASTING 99 MG/DL (70-100); POTASSIUM SERUM 4.2 MEQ/L (3.5-5.1); SODIUM LEVEL 137 MEQ/L (136-145)
[2020-04-30 22:42] LABS: ACETAMINOPHEN LEVEL < 2.0 UG/ML (10.0-30.0); ALBUMIN 3.8 GM/DL (3.2-5.2); ALT/SGPT 37 U/L (12-78); BILIRUBIN,DIRECT < 0.1 MG/DL (0.0-0.2); BILIRUBIN,TOTAL 0.1 MG/DL (0.2-1.0); CPK CREATINE PHOSPHOKINASE 142 U/L (26-192); ETHYL ALCOHOL (ETHANOL) < 0.003 % (0.000-0.010); SALICYLATE LEVEL < 1.7 MG/DL (5.0-30.0); TOTAL PROTEIN 7.5 GM/DL (6.4-8.2)
[2020-04-30] MEDS ORDERED: NS 1,000 ML IV ONE (23:00)
[2020-04-30 23:12] LABS: AMPHETAMINES LEVEL URINE NEGATIVE (NEGATIVE); BARBITURATES URINE NEGATIVE (NEGATIVE); BENZODIAZEPINES URINE NEGATIVE (NEGATIVE); CANNABINOIDS URINE NEGATIVE (NEGATIVE); COCAINE METABOLITE URINE NEGATIVE (NEGATIVE); METHADONE URINE NEGATIVE (NEGATIVE); OPIATES URINE NEGATIVE (NEGATIVE); PHENCYCLIDINE URINE NEGATIVE (NEGATIVE)
[2020-05-01] MEDS ORDERED: BENZ0.5T23 PO (06:26)
[2020-05-01] MEDS ORDERED: HYDR1CAP25 PO (06:26)
[2020-05-01] MEDS ORDERED: ARIP1TAB10 PO (06:26)
[2020-05-01] MEDS ORDERED: TRAZ-252 PO (06:28)
[2020-05-01] MEDS ORDERED: ARIPiprazole 10 MG TAB PO ONE (08:45)
[2020-05-01] MEDS ORDERED: hydrOXYzine 25 MG TAB PO ONE (08:45)
[2020-05-01] MEDS ORDERED: BENZTROPINE 0.5 MG TAB PO ONE (08:45)
[2020-05-01] MEDS ORDERED: metFORMIN (GLUCOPHAGE) 500 MG TAB PO ONE (08:45)
[2020-05-01] MEDS ORDERED: PROPRANOLOL 20 MG TAB PO ONE ×2 (08:45)
[2020-05-01] MEDS ORDERED: OXcarbazepine 300 MG TAB PO SCH (09:00)
[2020-05-01] MEDS ORDERED: PROPRANOLOL 60 MG LA CAP PO SCH (09:00)
[2020-05-01] MEDS ORDERED: VITAMIN E 400 INTERNATIONAL UNITS CAP PO SCH (09:00)
--- NOTE | 2020-05-01 09:52 | ECGEPIP ---
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
[2020-05-01] MEDS ORDERED: NS 1,000 ML IV ONE (11:00)
[2020-05-01 11:46] LABS: BLOOD UREA NITROGEN 10 MG/DL (7-18); CARBON DIOXIDE LEVEL 31 MEQ/L (21-32); CHLORIDE LEVEL 106 MEQ/L (98-107); CREATININE FOR GFR 0.73 MG/DL (0.55-1.30); GLOMERULAR FILTRATION RATE > 60.0 (>60); GLUCOSE, FASTING 102 MG/DL (70-100); POTASSIUM SERUM 4.1 MEQ/L (3.5-5.1); SODIUM LEVEL 140 MEQ/L (136-145)
[2020-05-01 11:47] LABS: ALBUMIN 3.6 GM/DL (3.2-5.2); ALT/SGPT 33 U/L (12-78); BILIRUBIN,TOTAL 0.2 MG/DL (0.2-1.0); TOTAL PROTEIN 7.1 GM/DL (6.4-8.2)
[2020-05-01] MEDS ORDERED: ACETAMINOPHEN 500 MG TAB PO PRN (17:00)
[2020-05-01] MEDS ORDERED: MOM 30ML SUSPENSION UDC PO PRN (17:00)
[2020-05-01] MEDS ORDERED: MAALOX 30 ML SUSP *UDC PO PRN (17:00)
[2020-05-01] MEDS ORDERED: IBUPROFEN 400 MG TAB PO PRN (17:00)
[2020-05-01] MEDS: metFORMIN (GLUCOPHAGE) 500 MG TAB PO SCH (18:00)
[2020-05-01] MEDS ORDERED: traZODone 50 MG TAB PO PRN (19:00)
[2020-05-01 20:54] VITALS: BP 142/86
[2020-05-01] MEDS: ARIPiprazole 15 MG TAB (AbiLIFY) PO SCH (21:49)
[2020-05-01] MEDS: BENZTROPINE 0.5 MG TAB PO SCH (21:49)
[2020-05-01] MEDS: OXcarbazepine 300 MG TAB PO SCH (21:50)
[2020-05-02 06:47] VITALS: BP 126/76
[2020-05-02] MEDS: metFORMIN (GLUCOPHAGE) 500 MG TAB PO SCH ×2 (07:37→17:15)
[2020-05-02] MEDS: ARIPiprazole 15 MG TAB (AbiLIFY) PO SCH ×2 (08:53→21:03)
[2020-05-02] MEDS: VITAMIN E 400 INTERNATIONAL UNITS CAP PO SCH (08:53)
[2020-05-02] MEDS: OXcarbazepine 300 MG TAB PO SCH ×2 (08:53→21:03)
[2020-05-02] MEDS: PROPRANOLOL 60 MG LA CAP PO SCH (08:54)
[2020-05-02] MEDS: BENZTROPINE 0.5 MG TAB PO SCH ×2 (08:54→21:03)
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
[2020-05-02] MEDS: hydrOXYzine 50 MG TAB PO PRN (14:53)
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
[2020-05-02 16:32] VITALS: BP 135/71
[2020-05-02 17:05] LABS: HEMOGLOBIN A1c 5.8 %
[2020-05-03 07:20] VITALS: BP 112/82
[2020-05-03] MEDS: metFORMIN (GLUCOPHAGE) 500 MG TAB PO SCH ×2 (07:38→17:05)
[2020-05-03] MEDS: VITAMIN E 400 INTERNATIONAL UNITS CAP PO SCH (08:25)
[2020-05-03] MEDS: OXcarbazepine 300 MG TAB PO SCH ×2 (08:25→22:36)
[2020-05-03] MEDS: BENZTROPINE 0.5 MG TAB PO SCH ×2 (08:25→22:36)
[2020-05-03] MEDS: ARIPiprazole 15 MG TAB (AbiLIFY) PO SCH ×2 (08:25→22:36)
[2020-05-03] MEDS: PROPRANOLOL 60 MG LA CAP PO SCH (08:25)
[2020-05-03] MEDS: hydrOXYzine 50 MG TAB PO PRN ×2 (08:26→22:37)
--- NOTE | 2020-05-03 15:31 | MHIPNPDOC ---
[facility] Progress Note Progress Note DATE OF SERVICE: 05/03/20 HISTORY: Patient is a 35 -year-old Single, Disabled Autism, Unemployed, Domiciled, , female who self-presented to the ED after taking an overdose of Trazodone as a suicide attempt History of Present Illness HISTORY OF THE PRESENT ILLNESS: Patient is a 35 -year-old Single, Disabled Autism, Unemployed, Domiciled, , female, was brought to [facility] By her parents after she took an overdose of 7 Trazodone 50 mg as a suicide attempt (took all that was in the bottle) She reports that after an argument with her parents command hallucinations told her to kill herself. This is a patient who is well known to this facility with multiple admission, she's had 25+ admission to this facility. She's had multiple suicide attempts and overdoses. Patient was recently discharged from this facility last week. VITAL SIGNS: See below. NEW TEST RESULTS: CURRENT MEDICATIONS: See below. MENTAL STATUS EXAMINATION: Patient is a 35 -year-old Single, Disabled Autism, Unemployed, Domiciled, , female, was brought to [facility] By her parents after she took an overdose of 7 Trazodone 50 mg as a suicide attempt Speech: Is fluid, conversant, normal rate, tone and volume Language skills are intact Thought processes including: linear and goal oriented Thought content: reports depression and anxiety. Abstract reasoning, and computation: fair Description of associations: denies, none observed Description of abnormal or psychotic thoughts: denies, none observed. Judgment: fair Insight: fair Orientation: alert and oriented to person, place, time and situation Recent and remote memory: intact Attention span and concentration: good Language: expansive Fund of knowledge: below average Mood: moderately depression rates it 08/30 Affect: flat DIAGNOSES: Autism Schizoaffective Disorder ASSESSMENT: Patient is calm and cooperative in the interview. Patient had individual therapy session today and motivational interviewing was used in this session. She was very focused on having a journal today, composition book given to patient to journal. Also given suicide prevention worksheets. We discussed the possibility that her impulsivity and anger dysregulation is possibly the reason for her numerous suicide attempts. She is motivated to gain control of her mood dysregulation, and is aware that her anxiety/anger is the cause of negative thought processes. MANAGEMENT PLAN: Continue all medications, discharger when she is stable, safe and agreeable to discharge TIME SPENT: 40 minutes. 13:03-13:43 [place] on code [id number] for individual therapy session Vital Signs Vital Signs Date Time Temp Pulse Resp B/P (MAP) Pulse Ox O2 Delivery O2 Flow Rate FiO2 05/03/20 08:25 85 170/62 05/03/20 07:20 96.7 18 05/01/20 20:54 97 05/01/20 15:51 Room Air Current Medications Current Medications Medications (Trade) Dose Ordered Sig/Coyr Route PRN Reason Start Time Stop Time Status Last Admin Dose Admin Acetaminophen (Tylenol Tab) 1,000 mg Q6H PRN PO PAIN 05/01/20 17:00 Al Hydrox/Mg Hydrox/Simethicone (Mylanta) 30 ml Q4HP PRN PO HEARTBURN/INDIGESTION 05/01/20 17:00 Aripiprazole (AbiLIFY) 15 mg BID PO 05/01/20 21:00 05/03/20 08:25 Benztropine Mesylate (Cogentin) 0.5 mg BID PO 05/01/20 21:00 05/03/20 08:25 Home Med (Med Rec Complete!) ASDIRECTED XX 05/01/20 06:30 05/01/20 06:37 DC Hydroxyzine HCl (Atarax) 50 mg Q6HP PRN PO ANXIETY 05/02/20 09:00 05/03/20 08:26 Ibuprofen (Advil) 400 mg Q6HP PRN PO PAIN 05/01/20 17:00 Magnesium Hydroxide (Milk Of Magnesia) 30 ml DAILYPRN PRN PO CONSTIPATION 05/01/20 17:00 Metformin HCl (Glucophage) 500 mg BIDWM PO 05/01/20 18:00 05/03/20 07:38 Oxcarbazepine (Trileptal) 600 mg BID PO 05/01/20 09:00 05/01/20 16:42 DC 05/01/20 09:06 Oxcarbazepine (Trileptal) 600 mg BID PO 05/01/20 21:00 05/03/20 08:25 Propranolol HCl (Inderal La) 60 mg DAILY PO 05/02/20 09:00 05/03/20 08:25 Propranolol HCl (Inderal La) 60 mg DAILY PO 05/01/20 09:00 05/01/20 16:42 DC 05/01/20 09:31 Trazodone HCl (Desyrel) 50 mg QHSP PRN PO INSOMNIA 05/01/20 19:00 Vitamin E (Vitamin E) 400 units DAILY PO 05/02/20 09:00 05/03/20 08:25 Vitamin E (Vitamin E) 400 units DAILY PO 05/01/20 09:00 05/01/20 16:44 DC 05/01/20 09:29 Allergies Coded Allergies: cariprazine (Verified Allergy, Intermediate, increased SI, 04/18/20) Penicillins (Verified Allergy, Mild, rash, 04/18/20) risperidone (Verified Allergy, Mild, RASH, 04/18/20) prednisone (Verified Adverse Reaction, Intermediate, anxiety, agitation, 04/18/20) quetiapine (Verified Adverse Reaction, Intermediate, OCULOGYRIC CRISIS, 04/18/20) MEGHAN MÁRQUEZ NP May 03, 2020 15:31
[2020-05-03 16:46] VITALS: BP 133/58
[2020-05-04] MEDS: OXcarbazepine 300 MG TAB PO SCH ×2 (09:15→20:03)
[2020-05-04] MEDS: hydrOXYzine 50 MG TAB PO PRN ×2 (09:16→20:02)
[2020-05-04] MEDS: ARIPiprazole 15 MG TAB (AbiLIFY) PO SCH ×2 (09:16→20:02)
[2020-05-04] MEDS: BENZTROPINE 0.5 MG TAB PO SCH ×2 (09:16→20:02)
[2020-05-04] MEDS: metFORMIN (GLUCOPHAGE) 500 MG TAB PO SCH ×2 (09:16→17:05)
[2020-05-04] MEDS: VITAMIN E 400 INTERNATIONAL UNITS CAP PO SCH (09:17)
[2020-05-04] MEDS: PROPRANOLOL 60 MG LA CAP PO SCH (09:17)
--- NOTE | 2020-05-04 15:09 | MHIPNPDOC ---
[facility] Progress Note Progress Note DATE OF SERVICE: 05/04/20 Patient is a 35 -year-old Single, Disabled Autism, Unemployed, Domiciled, , female who self-presented to the ED after taking an overdose of Trazodone as a suicide attempt History of Present Illness HISTORY OF THE PRESENT ILLNESS: Patient is a 35 -year-old Single, Disabled Autism, Unemployed, Domiciled, , female, was brought to [facility] By her parents after she took an overdose of 7 Trazodone 50 mg as a suicide attempt (took all that was in the bottle) She reports that after an argument with her parents command hallucinations told her to kill herself. This is a patient who is well known to this facility with multiple admission, she's had 25+ admission to this facility. She stated that she has had over 30 hospitalizations as she has been to the [facility]. She's had multiple suicide attempts and overdoses. Patient was recently discharged from this facility last week. Patient lives with her parents who have been very embroiled in her treatment planning and have sabotaged patient's request for independent living numerous times. VITAL SIGNS: See below. NEW TEST RESULTS: CURRENT MEDICATIONS: See below. MENTAL STATUS EXAMINATION: Patient is 35 -year-old Single, Disabled Autism, Unemployed, Domiciled, , female. She is dressed appropriately, dressed in hospital scrubs, her hygiene and grooming is good. Her eye contact is engaged and she has not psychomotor changes. Speech: Is fluid, conversant, loud and normal rate and tone Language skills are intact Thought processes including: linear and goal oriented Thought content: reports mild depression, suicidal ideation but no planning or intent Abstract reasoning, and computation: intact/average Description of associations: none observed, patient denies Description of abnormal or psychotic thoughts: none observed, patient denies today. At times has auditory hallucinations and can be very ruminative about her parents Judgment: fair Insight: fair Orientation: alert and oriented to person, place, time and situation Recent and remote memory: intact Attention span and concentration: good Language: expansive Fund of knowledge: average Mood: euthymic Affect: reactive DIAGNOSES: Autism Schizoaffective Disorder ASSESSMENT: Patient reports that she had no current suicidal ideation during the interview, but that she has daily suicidal thinking. She stated that he had no intent or planning during interview. She was able to discuss her suicide safety plan, anger questionnaire and self-harm questionnaire. During Motivational Interviewing she was able to report that many of her suicidal ideations are not planned, is not out of retaliation most times and that she can interrupt some of these thoughts with distraction. She was able to discuss that she wants to be able to halt planning and intent as she is motivated for independent living. She is hopeful that she can be given a chance to live away from home. MANAGEMENT PLAN: Continue medications, continue individual and group therapy, continue all treatment plans, we will discharge patient when she is stable. Probable discharge next week TIME SPENT: 35 minutes. 13:00-13:35 Add on Code for Psychotherapy - Motivational Interviewing 15940 Vital Signs Vital Signs Date Time Temp Pulse Resp B/P (MAP) Pulse Ox O2 Delivery O2 Flow Rate FiO2 05/04/20 09:17 89 151/83 05/03/20 16:46 97.8 18 05/01/20 20:54 97 05/01/20 15:51 Room Air Current Medications Current Medications Medications (Trade) Dose Ordered Sig/Cory Route PRN Reason Start Time Stop Time Status Last Admin Dose Admin Acetaminophen (Tylenol Tab) 1,000 mg Q6H PRN PO PAIN 05/01/20 17:00 Al Hydrox/Mg Hydrox/Simethicone (Mylanta) 30 ml Q4HP PRN PO HEARTBURN/INDIGESTION 05/01/20 17:00 Aripiprazole (AbiLIFY) 15 mg BID PO 05/01/20 21:00 05/04/20 09:16 Benztropine Mesylate (Cogentin) 0.5 mg BID PO 05/01/20 21:00 05/04/20 09:16 Home Med (Med Rec Complete!) ASDIRECTED XX 05/01/20 06:30 05/01/20 06:37 DC Hydroxyzine HCl (Atarax) 50 mg Q6HP PRN PO ANXIETY 05/02/20 09:00 05/04/20 09:16 Ibuprofen (Advil) 400 mg Q6HP PRN PO PAIN 05/01/20 17:00 Magnesium Hydroxide (Milk Of Magnesia) 30 ml DAILYPRN PRN PO CONSTIPATION 05/01/20 17:00 Metformin HCl (Glucophage) 500 mg BIDWM PO 05/01/20 18:00 05/04/20 09:16 Oxcarbazepine (Trileptal) 600 mg BID PO 05/01/20 09:00 05/01/20 16:42 DC 05/01/20 09:06 Oxcarbazepine (Trileptal) 600 mg BID PO 05/01/20 21:00 05/04/20 09:15 Propranolol HCl (Inderal La) 60 mg DAILY PO 05/02/20 09:00 05/04/20 09:17 Propranolol HCl (Inderal La) 60 mg DAILY PO 05/01/20 09:00 05/01/20 16:42 DC 05/01/20 09:31 Trazodone HCl (Desyrel) 50 mg QHSP PRN PO INSOMNIA 05/01/20 19:00 Vitamin E (Vitamin E) 400 units DAILY PO 05/02/20 09:00 05/04/20 09:17 Vitamin E (Vitamin E) 400 units DAILY PO 05/01/20 09:00 05/01/20 16:44 DC 05/01/20 09:29 Allergies Coded Allergies: cariprazine (Verified Allergy, Intermediate, increased SI, 04/18/20) Penicillins (Verified Allergy, Mild, rash, 04/18/20) risperidone (Verified Allergy, Mild, RASH, 04/18/20) prednisone (Verified Adverse Reaction, Intermediate, anxiety, agitation, 04/18/20) quetiapine (Verified Adverse Reaction, Intermediate, OCULOGYRIC CRISIS, ) MEGHAN MÁRQUEZ NP May 04, 2020 15:00
[2020-05-04 17:26] VITALS: BP 152/65
[2020-05-05] MEDS: metFORMIN (GLUCOPHAGE) 500 MG TAB PO SCH ×2 (07:31→17:02)
[2020-05-05] MEDS: hydrOXYzine 50 MG TAB PO PRN ×2 (09:01→20:03)
[2020-05-05] MEDS: VITAMIN E 400 INTERNATIONAL UNITS CAP PO SCH (09:02)
[2020-05-05] MEDS: BENZTROPINE 0.5 MG TAB PO SCH ×2 (09:04→20:03)
[2020-05-05] MEDS: OXcarbazepine 300 MG TAB PO SCH ×2 (09:04→20:03)
[2020-05-05] MEDS: ARIPiprazole 15 MG TAB (AbiLIFY) PO SCH ×2 (09:04→20:03)
[2020-05-05] MEDS: PROPRANOLOL 60 MG LA CAP PO SCH (09:04)
--- NOTE | 2020-05-05 14:24 | MHIPNPDOC ---
[facility] Progress Note Progress Note DATE OF SERVICE: 05/05/20 Patient is a 35 -year-old Single, Disabled Autism, Unemployed, Domiciled, , female who self-presented to the ED after taking an overdose of Trazodone as a suicide attempt History of Present Illness HISTORY OF THE PRESENT ILLNESS: Patient is a 35 -year-old Single, Disabled Autism, Unemployed, Domiciled, , female, was brought to [facility] By her parents after she took an overdose of 7 Trazodone 50 mg as a suicide attempt (took all that was in the bottle) She reports that after an argument with her parents command hallucinations told her to kill herself. This is a patient who is well known to this facility with multiple admission, she's had 25+ admission to this facility. She stated that she has had over 30 hospitalizations as she has been to the [facility]. She's had multiple suicide attempts and overdoses. Patient was recently discharged from this facility last week. Patient lives with her parents who have been very embroiled in her treatment planning and have sabotaged patient's request for independent living numerous times. VITAL SIGNS: See below. NEW TEST RESULTS: CURRENT MEDICATIONS: See below. MENTAL STATUS EXAMINATION: Patient is 35 -year-old Single, Disabled Autism, Unemployed, Domiciled, , female. She is dressed appropriately, dressed in hospital scrubs, her hygiene and grooming is good. Her eye contact is engaged and she has not psychomotor changes. Speech: Is fluid, conversant, loud and normal rate and tone Language skills are intact Thought processes including: linear and goal oriented Thought content: reports mild depression, reports that she thinks about suicidality daily and frequently throughout the day but has no intentions or planning at this time. Patient has a long history of impulsivity Abstract reasoning, and computation: intact/average Description of associations: none observed, patient denies Description of abnormal or psychotic thoughts: ruminative about getting her clothes today, patient denies today. Judgment: fair most times Insight: fair Orientation: alert and oriented to person, place, time and situation Recent and remote memory: intact Attention span and concentration: good Language: expansive Fund of knowledge: average Mood: euthymic Affect: reactive DIAGNOSES: Autism Schizoaffective Disorder ASSESSMENT: Patient is very ruminative about her clothes, states "It's not fair other people have their clothes." Reinforced with patient that her clothes may have been contaminated and that at this time she is unable to have her personal clothing. Patient is becoming more stable and I will be discharging her on Friday. Due to her history of impulsive thoughts and history of poor insight, I feel it necessary to make sure that the patient is stable and that her frequent suicide thoughts can be intense depending on her current relationship with her parents. We will converse with her parents on Friday to determine if they feel patient is safe to return to their home. MANAGEMENT PLAN: Continue medications, continue individual and group therapy, continue all treatment plans, we will discharge patient when she is stable. Probable discharge next week TIME SPENT: 20 minutes. Vital Signs Vital Signs Date Time Temp Pulse Resp B/P (MAP) Pulse Ox O2 Delivery O2 Flow Rate FiO2 05/05/20 09:04 82 140/79 05/04/20 17:26 98.3 18 99 Room Air Current Medications Current Medications Medications (Trade) Dose Ordered Sig/Cory Route PRN Reason Start Time Stop Time Status Last Admin Dose Admin Acetaminophen (Tylenol Tab) 1,000 mg Q6H PRN PO PAIN 05/01/20 17:00 Al Hydrox/Mg Hydrox/Simethicone (Mylanta) 30 ml Q4HP PRN PO HEARTBURN/INDIGESTION 05/01/20 17:00 Aripiprazole (AbiLIFY) 15 mg BID PO 05/01/20 21:00 05/05/20 09:04 Benztropine Mesylate (Cogentin) 0.5 mg BID PO 05/01/20 21:00 05/05/20 09:04 Home Med (Med Rec Complete!) ASDIRECTED XX 05/01/20 06:30 05/01/20 06:37 DC Hydroxyzine HCl (Atarax) 50 mg Q6HP PRN PO ANXIETY 05/02/20 09:00 05/05/20 09:01 Ibuprofen (Advil) 400 mg Q6HP PRN PO PAIN 05/01/20 17:00 Magnesium Hydroxide (Milk Of Magnesia) 30 ml DAILYPRN PRN PO CONSTIPATION 05/01/20 17:00 Metformin HCl (Glucophage) 500 mg BIDWM PO 05/01/20 18:00 05/05/20 07:31 Oxcarbazepine (Trileptal) 600 mg BID PO 05/01/20 09:00 05/01/20 16:42 DC 05/01/20 09:06 Oxcarbazepine (Trileptal) 600 mg BID PO 05/01/20 21:00 05/05/20 09:04 Propranolol HCl (Inderal La) 60 mg DAILY PO 05/02/20 09:00 05/05/20 09:04 Propranolol HCl (Inderal La) 60 mg DAILY PO 05/01/20 09:00 05/01/20 16:42 DC 05/01/20 09:31 Trazodone HCl (Desyrel) 50 mg QHSP PRN PO INSOMNIA 05/01/20 19:00 Vitamin E (Vitamin E) 400 units DAILY PO 05/02/20 09:00 05/05/20 09:02 Vitamin E (Vitamin E) 400 units DAILY PO 05/01/20 09:00 05/01/20 16:44 DC 05/01/20 09:29 Allergies Coded Allergies: cariprazine (Verified Allergy, Intermediate, increased SI, 04/18/20) Penicillins (Verified Allergy, Mild, rash, 04/18/20) risperidone (Verified Allergy, Mild, RASH, 04/18/20) prednisone (Verified Adverse Reaction, Intermediate, anxiety, agitation, 04/18/20) quetiapine (Verified Adverse Reaction, Intermediate, OCULOGYRIC CRISIS, 04/18/20) MEGHAN MÁRQUEZ NP May 05, 2020 12:48
[2020-05-05 16:10] VITALS: BP 133/68
[2020-05-06 06:30] VITALS: BP 126/81
[2020-05-06] MEDS: metFORMIN (GLUCOPHAGE) 500 MG TAB PO SCH ×2 (07:34→17:23)
[2020-05-06] MEDS: ARIPiprazole 15 MG TAB (AbiLIFY) PO SCH ×2 (09:17→20:26)
[2020-05-06] MEDS: BENZTROPINE 0.5 MG TAB PO SCH ×2 (09:17→20:26)
[2020-05-06] MEDS: VITAMIN E 400 INTERNATIONAL UNITS CAP PO SCH (09:17)
[2020-05-06] MEDS: OXcarbazepine 300 MG TAB PO SCH ×2 (09:17→20:26)
[2020-05-06] MEDS: hydrOXYzine 50 MG TAB PO PRN ×2 (09:17→17:22)
[2020-05-06] MEDS: PROPRANOLOL 60 MG LA CAP PO SCH (09:18)
[2020-05-06 16:24] VITALS: BP_SYST 134; BP_SYST 140; BP_DIAS 77; BP_DIAS 79
[2020-05-07 05:59] VITALS: BP 107/64
[2020-05-07] MEDS: metFORMIN (GLUCOPHAGE) 500 MG TAB PO SCH ×2 (07:35→17:11)
[2020-05-07] MEDS: hydrOXYzine 50 MG TAB PO PRN ×2 (08:38→17:12)
[2020-05-07] MEDS: BENZTROPINE 0.5 MG TAB PO SCH ×2 (08:39→21:32)
[2020-05-07] MEDS: OXcarbazepine 300 MG TAB PO SCH ×2 (08:39→21:32)
[2020-05-07] MEDS: PROPRANOLOL 60 MG LA CAP PO SCH (08:39)
[2020-05-07] MEDS: VITAMIN E 400 INTERNATIONAL UNITS CAP PO SCH (08:40)
[2020-05-07] MEDS: ARIPiprazole 15 MG TAB (AbiLIFY) PO SCH ×2 (08:40→21:32)
[2020-05-07 16:28] VITALS: BP 146/82
[2020-05-08 06:31] VITALS: BP 112/61
[2020-05-08] MEDS: metFORMIN (GLUCOPHAGE) 500 MG TAB PO SCH (09:00)
[2020-05-08] MEDS: ARIPiprazole 15 MG TAB (AbiLIFY) PO SCH (09:21)
[2020-05-08] MEDS: VITAMIN E 400 INTERNATIONAL UNITS CAP PO SCH (09:21)
[2020-05-08 09:22] VITALS: BP 112/61
[2020-05-08] MEDS: OXcarbazepine 300 MG TAB PO SCH (09:22)
[2020-05-08] MEDS: BENZTROPINE 0.5 MG TAB PO SCH (09:22)
[2020-05-08] MEDS: PROPRANOLOL 60 MG LA CAP PO SCH (09:22)
[2020-05-08] MEDS: hydrOXYzine 50 MG TAB PO PRN (11:36)
--- NOTE | 2020-05-08 12:30 | MHDSPDOC ---
[facility] Discharge Summary Discharge Summary DATE OF ADMISSION: May 01, 2020 at 16:24 DATE OF DISCHARGE: May 08, 2020 at 1109 DISCHARGE DIAGNOSES: Autism Schizoaffective Disorder REASON FOR ADMISSION: Patient is a 35 -year-old Single, Disabled Autism, Unemployed, Domiciled, , female who self-presented to the ED after taking an overdose of Trazodone as a suicide attempt History of Present Illness HISTORY OF THE PRESENT ILLNESS: Patient is a 35 -year-old Single, Disabled Autism, Unemployed, Domiciled, , female, was brought to [facility] By her parents after she took an overdose of 7 Trazodone 50 mg as a suicide attempt (took all that was in the bottle) She reports that after an argument with her parents command hallucinations told her to kill herself. This is a patient who is well known to this facility with multiple admission, she's had 25+ admission to this facility. She stated that she has had over 30 h ospitalizations as she has been to the [facility]. She's had multiple suicide attempts and overdoses. Patient was recently discharged from this facility last week. Patient lives with her parents who have been very embroiled in her treatment planning and have sabotaged patient's request for independent living numerous times. CONSULTANTS INVOLVED: See Medical H + P by Hospitalist. TREATMENT AND PROGRESS ON THE UNIT : Patient was admitted to the [facility] on a 9.39 legal status he was afforded the following treatment modalities: 1) Individual Therapy 2) Group Therapy 3) Medication Management 4) Milieu Therapy 5) Safe Environment HOSPITAL COURSE: Patient is 35 year old Single, Female who is well- known to this facility. She has been admitted to this facility over 25+ times for various reasons including suicidal ideation, suicide attempts and homicidal ideations and violent behaviors. Patient was admitted on a 9.39 legal status and was restarted on her home medications with no medication changes. Patient did not need any medication changes and we focused much of her inpatient hospit alization with cognitive therapies: No self harm contract, negative thinking, impulsive thinking and reducing her impulsive suicidal ideations. DISCHARGE ASSESSMENT: In today's interview, patient states that she is ready to go home. She denies suicidal ideation today. But this is a patient who often has suicidal thinking daily, part of her Autism symptoms because she reports th at this has been going on since she was a teen. She denies anxiety, depression or thoughts to harm others. She stated that her mother is aware and will pick her up after lunch. MENTAL STATUS EXAMINATION ON DISCHARGE: Patient is a 35 -year-old Single, Disabled Autism, Unemployed, Domiciled, , female who self-presented to the ED after taking an overdose of Trazodone as a suicide attempt Speech: Is fluid, conversant, loud and normal rate and tone Language skills are intact Thought processes including: linear and goal oriented Thought content: reports mild depression, reports that she thinks about suicidality daily and frequently throughout the day but has no intentions or planning at this time. Patient has a long history of impulsivity Abstract reasoning, and computation: intact/average Description of associations: none observed, patient denies Description of abnormal or psychotic thoughts: ruminative about getting her clothes today, patient denies today. Judgment: fair most times Insight: fair Orientation: alert and oriented to person, place, time and situation Recent and remote memory: intact Attention span and concentration: good Language: expansive Fund of knowledge: average Mood: euthymic Affect: reactive MEDICATIONS ON DISCHARGE: See Medication Reconciliation, patient had no medication changes PLAN/FOLLOWUP ARRANGEMENTS: Please see Discharge Planners notes The amount of time spent in the coordination of care for this patient was approximately 20 minutes. Vital Signs/I&Os Vital Signs Date Time Temp Pulse Resp B/P (MAP) Pulse Ox O2 Delivery O2 Flow Rate FiO2 05/08/20 09:22 85 112/61 05/08/20 06:31 96.3 12 Room Air 05/06/20 06:30 95 Medications Scheduled Aripiprazole (Aripiprazole) 15 Mg Tablet, 15 MG PO BID, (Reported) Benztropine Mesylate (Benztropine Mesylate) 0.5 Mg Tablet, 0.5 MG PO BID, (Reported) Calcium Carbonate/Vitamin D3 (Calcium 600-Vit D3 800 Tablet) 1 Each Tablet, 1 TAB PO DAILY, (Reported) Hydroxyzine Pamoate (Hydroxyzine Pamoate) 25 Mg Capsule, 25 MG PO DAILY, (Reported) patient states not alleric to this one Metformin HCl (Metformin HCl) 500 Mg Tablet, 500 MG PO BIDWM, (Reported) BREAKFAST AND DINNER Oxcarbazepine (Trileptal) 600 Mg Tablet, 600 MG PO BID, (Reported) Propranolol Hcl (Inderal LA) 60 Mg Cap.sa.24h, 60 MG PO DAILY, (Reported) Trazodone HCl (Trazodone HCl) 50 Mg Tablet, 50 MG PO QHS, (Reported) Vitamin E (Dl,Tocopheryl Acet) (Vitamin E) 400 Unit Capsule, 400 UNIT PO DAILY, (Reported) Scheduled PRN Acetaminophen (Acetaminophen) 500 Mg Tablet, 1,000 MG PO Q6H PRN for PAIN, (Reported) Melatonin (Melatonin) 3 Mg Tablet, 3 MG PO QHS PRN for INSOMNIA, (Reported) Allergies Coded Allergies: cariprazine (Verified Allergy, Intermediate, increased SI, 04/18/20) Penicillins (Verified Allergy, Mild, rash, 04/18/20) risperidone (Verified Allergy, Mild, RASH, 04/18/20) prednisone (Verified Adverse Reaction, Intermediate, anxiety, agitation, 04/18/20) quetiapine (Verified Adverse Reaction, Intermediate, OCULOGYRIC CRISIS, 04/18/20) MEGHAN MÁRQUEZ NP May 08, 2020 11:21
== END 2020-05-08 12:59 | disposition home or self-care (01) | DRG 757 ==
LOC: M ED 21:33 → M ED INP 05-01 16:24 → M PSY 05-01 20:13
PROVIDERS: ADMIT Psychiatry & Neurology Psychiatry; ATTEND Psychiatry & Neurology Psychiatry
DX: F84.0 Autistic disorder (principal); F25.9 Schizoaffective disorder, unspecified; Z62.810 Personal history of physical and sexual abuse in childhood; F10.21 Alcohol dependence, in remission; T43.212A Poisoning by selective serotonin and norepinephrine reuptake inhibitors, intentional self-harm, initial encounter; F42.9 Obsessive-compulsive disorder, unspecified; F41.9 Anxiety disorder, unspecified; E11.9 Type 2 diabetes mellitus without complications; Z79.899 Other long term (current) drug therapy; Z88.0 Allergy status to penicillin; Z88.8 Allergy status to other drugs, medicaments and biological substances; Z79.84 Long term (current) use of oral hypoglycemic drugs; R19.7 Diarrhea, unspecified; Z63.8 Other specified problems related to primary support group; Z20.828 Contact with and (suspected) exposure to other viral communicable diseases

== ENCOUNTER 2020-06-05 21:50 | Inpatient (IN) | payer MEDICAID ==
[~2020-06-05] VITALS: Ht 157.5 cm; Wt 96.7 kg
[~2020-06-05 21:50] MED LIST changes: -MELA3TAB63 PO; +MELA3TAB70 PO
[2020-06-05] MEDS ORDERED: ABIL1TAB12 PO (23:11)
[2020-06-05 23:27] LABS: HEMATOCRIT 40.4 % (36.0-47.0); HEMOGLOBIN 12.9 g/dl (12.0-15.5); MEAN CORPUSCULAR HEMOGLOBIN 26.7 pg (27.0-33.0); MEAN CORPUSCULAR HGB CONC 31.9 g/dl (32.0-36.5); MEAN CORPUSCULAR VOLUME 83.6 fl (80.0-96.0); PLATELET COUNT, AUTOMATED 291 10^3/uL (150-450); RED BLOOD COUNT 4.83 10^6/uL (4.00-5.40); WHITE BLOOD COUNT 12.3 10^3/uL (4.0-10.0)
[2020-06-05 23:48] LABS: ACETAMINOPHEN LEVEL < 2.0 UG/ML (10.0-30.0); ALBUMIN 3.9 GM/DL (3.2-5.2); ALT/SGPT 29 U/L (12-78); BILIRUBIN,DIRECT < 0.1 MG/DL (0.0-0.2); BILIRUBIN,TOTAL 0.1 MG/DL (0.2-1.0); BLOOD UREA NITROGEN 18 MG/DL (7-18); CARBON DIOXIDE LEVEL 27 MEQ/L (21-32); CHLORIDE LEVEL 101 MEQ/L (98-107); CREATININE FOR GFR 1.01 MG/DL (0.55-1.30); ETHYL ALCOHOL (ETHANOL) < 0.003 % (0.000-0.010); GLOMERULAR FILTRATION RATE > 60.0 (>60); GLUCOSE, FASTING 117 MG/DL (70-100); POTASSIUM SERUM 4.4 MEQ/L (3.5-5.1); SALICYLATE LEVEL < 1.7 MG/DL (5.0-30.0); SODIUM LEVEL 132 MEQ/L (136-145); TOTAL PROTEIN 7.5 GM/DL (6.4-8.2)
[2020-06-06 00:01] LABS: AMPHETAMINES LEVEL URINE NEGATIVE (NEGATIVE); BARBITURATES URINE NEGATIVE (NEGATIVE); BENZODIAZEPINES URINE NEGATIVE (NEGATIVE); CANNABINOIDS URINE NEGATIVE (NEGATIVE); COCAINE METABOLITE URINE NEGATIVE (NEGATIVE); METHADONE URINE NEGATIVE (NEGATIVE); OPIATES URINE NEGATIVE (NEGATIVE); PHENCYCLIDINE URINE NEGATIVE (NEGATIVE)
[2020-06-06] MEDS ORDERED: traZODone 50 MG TAB PO ONE (01:45)
--- NOTE | 2020-06-06 05:58 | ECGEPIP ---
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
[2020-06-06] MEDS ORDERED: ARIP1TAB44 PO (07:36)
[2020-06-06] MEDS ORDERED: traZODone 50 MG TAB PO PRN ×2 (08:30→13:30)
[2020-06-06] MEDS ORDERED: ARIPiprazole 10 MG TAB PO ONE (08:45)
[2020-06-06] MEDS: hydrOXYzine 25 MG TAB PO SCH (08:47)
[2020-06-06] MEDS: BENZTROPINE 0.5 MG TAB PO SCH ×2 (08:48→20:10)
[2020-06-06] MEDS: OXcarbazepine 300 MG TAB PO SCH ×2 (08:48→20:10)
[2020-06-06] MEDS: metFORMIN (GLUCOPHAGE) 500 MG TAB PO SCH ×2 (08:48→18:01)
[2020-06-06] MEDS: VITAMIN E 400 INTERNATIONAL UNITS CAP PO SCH (10:14)
[2020-06-06] MEDS: PROPRANOLOL 60 MG LA CAP PO SCH (10:15)
[2020-06-06] MEDS ORDERED: MAALOX 30 ML SUSP *UDC PO PRN (13:30)
[2020-06-06] MEDS ORDERED: MOM 30ML SUSPENSION UDC PO PRN (13:30)
[2020-06-06] MEDS ORDERED: ACETAMINOPHEN TAB 650MG DOSE (2X325MG) PO PRN (13:30)
[2020-06-06 13:44] LABS: RSV AMPLIFICATION NEGATIVE (NEGATIVE)
[2020-06-06 17:17] VITALS: BP 176/88
[2020-06-07 06:00] VITALS: BP 115/55
[2020-06-07] MEDS: metFORMIN (GLUCOPHAGE) 500 MG TAB PO SCH ×2 (08:33→17:34)
[2020-06-07] MEDS: BENZTROPINE 0.5 MG TAB PO SCH ×2 (09:03→21:29)
[2020-06-07] MEDS: ARIPiprazole 15 MG TAB (AbiLIFY) PO SCH ×3 (09:03→21:29)
[2020-06-07] MEDS: PROPRANOLOL 60 MG LA CAP PO SCH (09:03)
[2020-06-07] MEDS: hydrOXYzine 25 MG TAB PO SCH (09:03)
[2020-06-07] MEDS: OXcarbazepine 300 MG TAB PO SCH ×2 (09:04→21:28)
[2020-06-07] MEDS: VITAMIN E 400 INTERNATIONAL UNITS CAP PO SCH (09:04)
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
[2020-06-08 06:40] VITALS: BP 134/71
[2020-06-08] MEDS: metFORMIN (GLUCOPHAGE) 500 MG TAB PO SCH ×2 (09:26→17:06)
[2020-06-08] MEDS: VITAMIN E 400 INTERNATIONAL UNITS CAP PO SCH (09:26)
[2020-06-08] MEDS: ARIPiprazole 15 MG TAB (AbiLIFY) PO SCH ×2 (09:26→21:29)
[2020-06-08] MEDS: OXcarbazepine 300 MG TAB PO SCH ×2 (09:26→21:29)
[2020-06-08] MEDS: BENZTROPINE 0.5 MG TAB PO SCH ×2 (09:26→21:29)
[2020-06-08] MEDS: hydrOXYzine 25 MG TAB PO SCH (09:27)
[2020-06-08] MEDS: PROPRANOLOL 60 MG LA CAP PO SCH (09:27)
--- NOTE | 2020-06-08 14:29 | MHIPNPDOC ---
[facility] Progress Note Progress Note DATE OF SERVICE: 06/08/20 HISTORY: The patient is met with today, she reports that she is not feeling suicidal now, but is very ambivalent about changing her medications. She continues to report that she wants to be home for [place] of her going to a residential program being quite fixated on it. She has had any major behavioral difficulties has been attending groups and otherwise doing well. She has been exhibiting any signs of depression and is currently denying any at this time.. VITAL SIGNS: See below. NEW TEST RESULTS: None today. CURRENT MEDICATIONS: See below. MENTAL STATUS EXAMINATION: General: [Well dressed with good hygiene] Speech: [Spontaneous and fluid] Thought processes: [Linear and logical] Thought content: [Future orientated] Abstract reasoning, and computation: [Intact] Description of associations: Autistic/baseline Description of abnormal or psychotic thoughts:[Denies any suicidal or homicidal ideation. Denies any auditory or visual hallucinations. Does not appear to be responding to internal stimuli. Does not appear to be endorsing any bizarre or paranoid ideation.] Judgment: Baseline Insight: Baseline Orientation: [Alert and orientated 3] Recent and remote memory: [Intact] Attention span and concentration: [Intact] Fund of knowledge: [Adequate] Mood: "Okay" Affect: Mildly flat at baseline DIAGNOSES: 1. Other recurrent depressive disorder. 2. Autistic spectrum. ASSESSMENT: The patient is likely making some progress some adjustment problems and the frequent conflict between her and her parents is a provoking problem for her admission, she likes to do well with some observation changing her medications appears to come with quite a bit of argumentation and difficulty across her family and herself, will try to avoid making drastic changes as this becomes a problem MANAGEMENT PLAN: We'll continue medications below as current, will avoid adding Luvox as will likely change the concentrations of other medications sign ificantly and would require drastic alterations which becomes significantly difficulty extend her stay much longer than she be willing to entertain. TIME SPENT: 15 minutes. Vital Signs Vital Signs Date Time Temp Pulse Resp B/P (MAP) Pulse Ox O2 Delivery O2 Flow Rate FiO2 06/08/20 09:27 85 134/71 06/08/20 06:40 97.7 18 100 Room Air Current Medications Current Medications Medications (Trade) Dose Ordered Sig/Cory Route PRN Reason Start Time Stop Time Status Last Admin Dose Admin Acetaminophen (Tylenol Tab) 650 mg Q6HP PRN PO HEADACHE or DISCOMFORT 06/06/20 13:30 06/06/20 19:21 Al Hydrox/Mg Hydrox/Simethicone (Mylanta) 30 ml Q4HP PRN PO HEARTBURN/INDIGESTION 06/06/20 13:30 Aripiprazole (AbiLIFY) 15 mg BID PO 06/06/20 21:00 06/08/20 09:26 Benztropine Mesylate (Cogentin) 0.5 mg BID PO 06/06/20 09:00 06/08/20 09:26 Home Med (Med Rec Complete!) ASDIRECTED XX 06/06/20 07:45 06/06/20 07:38 DC Hydroxyzine HCl (Atarax) 25 mg DAILY PO 06/06/20 09:00 06/08/20 09:27 Magnesium Hydroxide (Milk Of Magnesia) 30 ml DAILYPRN PRN PO CONSTIPATION 06/06/20 13:30 Metformin HCl (Glucophage) 500 mg BIDWM PO 06/06/20 08:00 06/08/20 09:26 Oxcarbazepine (Trileptal) 600 mg BID PO 06/06/20 09:00 06/08/20 09:26 Propranolol HCl (Inderal La) 60 mg DAILY PO 06/06/20 09:00 06/08/20 09:27 Trazodone HCl (Desyrel) 50 mg QHS PRN PO SLEEP 06/06/20 08:30 06/06/20 13:31 DC Trazodone HCl (Desyrel) 50 mg QHSP PRN PO INSOMNIA 06/06/20 13:30 06/06/20 22:24 Vitamin E (Vitamin E) 400 units DAILY PO 06/06/20 09:00 06/08/20 09:26 Allergies Coded Allergies: cariprazine (Verified Allergy, Intermediate, increased SI, 04/18/20) Penicillins (Verified Allergy, Mild, rash, 04/18/20) risperidone (Verified Allergy, Mild, RASH, 04/18/20) prednisone (Verified Adverse Reaction, Intermediate, anxiety, agitation, 04/18/20) quetiapine (Verified Adverse Reaction, Intermediate, OCULOGYRIC CRISIS, 04/18/20) BIGG PATEL DO Jun 08, 2020 14:29
[2020-06-08 16:00] VITALS: BP 139/63
[2020-06-09] MEDS: ARIPiprazole 15 MG TAB (AbiLIFY) PO SCH ×2 (08:21→21:02)
[2020-06-09] MEDS: VITAMIN E 400 INTERNATIONAL UNITS CAP PO SCH (08:21)
[2020-06-09] MEDS: hydrOXYzine 25 MG TAB PO SCH (08:21)
[2020-06-09] MEDS: PROPRANOLOL 60 MG LA CAP PO SCH (08:21)
[2020-06-09] MEDS: BENZTROPINE 0.5 MG TAB PO SCH ×2 (08:21→21:02)
[2020-06-09] MEDS: metFORMIN (GLUCOPHAGE) 500 MG TAB PO SCH ×2 (08:22→17:02)
[2020-06-09] MEDS: OXcarbazepine 300 MG TAB PO SCH ×2 (08:22→21:02)
--- NOTE | 2020-06-09 12:17 | MHIPNPDOC ---
[facility] Progress Note Progress Note DATE OF SERVICE: 06/09/20 HISTORY: The patient at this time has no significant complaints, reports depression is well controlled, denies suicidal thoughts. Reports wants to be able to go home by [place], describes able to socialize without any major problems, has no other concerns VITAL SIGNS: See below. NEW TEST RESULTS: None today. CURRENT MEDICATIONS: See below. MENTAL STATUS EXAMINATION: General: [Well dressed with good hygiene] Speech: [Spontaneous and fluid] Thought processes: [Linear and logical] Thought content: [Future orientated] Abstract reasoning, and computation: [Intact] Description of associations: Autistic/baseline Description of abnormal or psychotic thoughts:[Denies any suicidal or homicidal ideation. Denies any auditory or visual hallucinations. Does not appear to be responding to internal stimuli. Does not appear to be endorsing any bizarre or paranoid ideation.] Judgment: Baseline Insight: Baseline Orientation: [Alert and orientated 3] Recent and remote memory: [Intact] Attention span and concentration: [Intact] Fund of knowledge: [Adequate] Mood: "Okay" Affect: Mildly flat at baseline DIAGNOSES: 1. Other recurrent depressive disorder. 2. Autistic spectrum. ASSESSMENT: Observe over the weekend and discharge if appropriate on Friday MANAGEMENT PLAN:Continue medications as current TIME SPENT: 15 minutes. Vital Signs Vital Signs Date Time Temp Pulse Resp B/P (MAP) Pulse Ox O2 Delivery O2 Flow Rate FiO2 06/09/20 08:21 82 134/71 06/08/20 16:00 97.6 16 06/08/20 06:40 100 Room Air Current Medications Current Medications Medications (Trade) Dose Ordered Sig/Cory Route PRN Reason Start Time Stop Time Status Last Admin Dose Admin Acetaminophen (Tylenol Tab) 650 mg Q6HP PRN PO HEADACHE or DISCOMFORT 06/06/20 13:30 06/06/20 19:21 Al Hydrox/Mg Hydrox/Simethicone (Mylanta) 30 ml Q4HP PRN PO HEARTBURN/INDIGESTION 06/06/20 13:30 Aripiprazole (AbiLIFY) 15 mg BID PO 06/06/20 21:00 06/09/20 08:21 Benztropine Mesylate (Cogentin) 0.5 mg BID PO 06/06/20 09:00 06/09/20 08:21 Home Med (Med Rec Complete!) ASDIRECTED XX 06/06/20 07:45 06/06/20 07:38 DC Hydroxyzine HCl (Atarax) 25 mg DAILY PO 06/06/20 09:00 06/09/20 08:21 Magnesium Hydroxide (Milk Of Magnesia) 30 ml DAILYPRN PRN PO CONSTIPATION 06/06/20 13:30 Metformin HCl (Glucophage) 500 mg BIDWM PO 06/06/20 08:00 06/09/20 08:22 Oxcarbazepine (Trileptal) 600 mg BID PO 06/06/20 09:00 06/09/20 08:22 Propranolol HCl (Inderal La) 60 mg DAILY PO 06/06/20 09:00 06/09/20 08:21 Trazodone HCl (Desyrel) 50 mg QHS PRN PO SLEEP 06/06/20 08:30 06/06/20 13:31 DC Trazodone HCl (Desyrel) 50 mg QHSP PRN PO INSOMNIA 06/06/20 13:30 06/06/20 22:24 Vitamin E (Vitamin E) 400 units DAILY PO 06/06/20 09:00 06/09/20 08:21 Allergies Coded Allergies: cariprazine (Verified Allergy, Intermediate, increased SI, 04/18/20) Penicillins (Verified Allergy, Mild, rash, 04/18/20) risperidone (Verified Allergy, Mild, RASH, 04/18/20) prednisone (Verified Adverse Reaction, Intermediate, anxiety, agitation, 04/18/20) quetiapine (Verified Adverse Reaction, Intermediate, OCULOGYRIC CRISIS, 04/18/20) BIGG PATEL DO Jun 09, 2020 12:17
[2020-06-09 18:00] VITALS: BP 140/71
[2020-06-10 06:40] VITALS: BP 128/70
[2020-06-10] MEDS: PROPRANOLOL 60 MG LA CAP PO SCH (08:20)
[2020-06-10] MEDS: VITAMIN E 400 INTERNATIONAL UNITS CAP PO SCH (08:20)
[2020-06-10] MEDS: BENZTROPINE 0.5 MG TAB PO SCH ×2 (08:21→20:31)
[2020-06-10] MEDS: hydrOXYzine 25 MG TAB PO SCH (08:21)
[2020-06-10] MEDS: ARIPiprazole 15 MG TAB (AbiLIFY) PO SCH ×2 (08:21→20:31)
[2020-06-10] MEDS: metFORMIN (GLUCOPHAGE) 500 MG TAB PO SCH ×2 (08:22→17:08)
[2020-06-10] MEDS: OXcarbazepine 300 MG TAB PO SCH ×2 (08:22→20:31)
--- NOTE | 2020-06-10 11:24 | MHIPNPDOC ---
[facility] Progress Note Progress Note DATE OF SERVICE: 06/10/20 HISTORY: The patient has met with today, she reports that she is doing "okay" she had been talking to another patient not suicide but describes that she was t alking about how she did not want to commit suicide and has no intention to do such a thing is feeling much improved, she reports she wants to be home for [place] and otherwise has no complaints about her medications VITAL SIGNS: See below. NEW TEST RESULTS: None today. CURRENT MEDICATIONS: See below. MENTAL STATUS EXAMINATION: General: [Well dressed with good hygiene] Speech: [Spontaneous and fluid] Thought processes: [Linear and logical] Thought content: [Future orientated] Abstract reasoning, and computation: [Intact] Description of associations: Autistic/baseline Description of abnormal or psychotic thoughts:[Denies any suicidal or homicidal ideation. Denies any auditory or visual hallucinations. Does not appear to be responding to internal stimuli. Does not appear to be endorsing any bizarre or paranoid ideation.] Judgment: Baseline Insight: Baseline Orientation: [Alert and orientated 3] Recent and remote memory: [Intact] Attention span and concentration: [Intact] Fund of knowledge: [Adequate] Mood: "Okay" Affect: Mildly flat at baseline DIAGNOSES: 1. Other recurrent depressive disorder. 2. Autistic spectrum. ASSESSMENT: Observe over the weekend and discharge if appropriate on Friday MANAGEMENT PLAN:Continue medications as current TIME SPENT: 15 minutes. Vital Signs Vital Signs Date Time Temp Pulse Resp B/P (MAP) Pulse Ox O2 Delivery O2 Flow Rate FiO2 06/10/20 08:20 87 128/70 06/10/20 06:40 97.1 16 100 Room Air Current Medications Current Medications Medications (Trade) Dose Ordered Sig/Cory Route PRN Reason Start Time Stop Time Status Last Admin Dose Admin Acetaminophen (Tylenol Tab) 650 mg Q6HP PRN PO HEADACHE or DISCOMFORT 06/06/20 13:30 06/06/20 19:21 Al Hydrox/Mg Hydrox/Simethicone (Mylanta) 30 ml Q4HP PRN PO HEARTBURN/INDIGESTION 06/06/20 13:30 Aripiprazole (AbiLIFY) 15 mg BID PO 06/06/20 21:00 06/10/20 08:21 Benztropine Mesylate (Cogentin) 0.5 mg BID PO 06/06/20 09:00 06/10/20 08:21 Home Med (Med Rec Complete!) ASDIRECTED XX 06/06/20 07:45 06/06/20 07:38 DC Hydroxyzine HCl (Atarax) 25 mg DAILY PO 06/06/20 09:00 06/10/20 08:21 Magnesium Hydroxide (Milk Of Magnesia) 30 ml DAILYPRN PRN PO CONSTIPATION 06/06/20 13:30 Metformin HCl (Glucophage) 500 mg BIDWM PO 06/06/20 08:00 06/10/20 08:22 Oxcarbazepine (Trileptal) 600 mg BID PO 06/06/20 09:00 06/10/20 08:22 Propranolol HCl (Inderal La) 60 mg DAILY PO 06/06/20 09:00 06/10/20 08:20 Trazodone HCl (Desyrel) 50 mg QHS PRN PO SLEEP 06/06/20 08:30 06/06/20 13:31 DC Trazodone HCl (Desyrel) 50 mg QHSP PRN PO INSOMNIA 06/06/20 13:30 06/06/20 22:24 Vitamin E (Vitamin E) 400 units DAILY PO 06/06/20 09:00 06/10/20 08:20 Allergies Coded Allergies: cariprazine (Verified Allergy, Intermediate, increased SI, 04/18/20) Penicillins (Verified Allergy, Mild, rash, 04/18/20) risperidone (Verified Allergy, Mild, RASH, 04/18/20) prednisone (Verified Adverse Reaction, Intermediate, anxiety, agitation, 04/18/20) quetiapine (Verified Adverse Reaction, Intermediate, OCULOGYRIC CRISIS, 04/18/20) BIGG PATEL DO Jun 10, 2020 11:24
[2020-06-11 06:49] VITALS: BP 123/59
[2020-06-11] MEDS: metFORMIN (GLUCOPHAGE) 500 MG TAB PO SCH ×2 (08:44→17:17)
[2020-06-11] MEDS: PROPRANOLOL 60 MG LA CAP PO SCH (09:03)
[2020-06-11] MEDS: BENZTROPINE 0.5 MG TAB PO SCH ×2 (09:03→21:01)
[2020-06-11] MEDS: ARIPiprazole 15 MG TAB (AbiLIFY) PO SCH ×2 (09:03→21:01)
[2020-06-11] MEDS: VITAMIN E 400 INTERNATIONAL UNITS CAP PO SCH (09:03)
[2020-06-11] MEDS: hydrOXYzine 25 MG TAB PO SCH (09:03)
[2020-06-11] MEDS: OXcarbazepine 300 MG TAB PO SCH ×2 (09:04→21:01)
--- NOTE | 2020-06-11 12:58 | CR.PDOC ---
General Date of Consultation: Jun 11, 2020 Consultation REASON FOR CONSULTATION/CHIEF COMPLAINT: Derm consultation was requested following patient complaints of pruritus and to rule out infestation. HISTORY OF PRESENT ILLNESS: Patient c/o a pruritic eruption on dorsal hands x a few days. She has been applying otc [place] without improvement. ALLERGIES: Please see below. HOME MEDICATIONS: Please see below. PE: -Eczematous plaques on bilateral dorsal hands. Nothing noted in interdigital web spaces or flexural wrists. A/P: 1. Eczematous hand dermatitis -Suggest triamcinolone 0.1% cream to be applied twice daily x 2 weeks (5 grams daily) 2. No evidence of Infestation Vital Signs/I&O Vital Signs Date Time Temp Pulse Resp B/P (MAP) Pulse Ox O2 Delivery O2 Flow Rate FiO2 06/11/20 09:03 99 123/59 06/11/20 06:49 97.5 16 99 Room Air Allergies Coded Allergies: cariprazine (Verified Allergy, Intermediate, increased SI, 04/18/20) Penicillins (Verified Allergy, Mild, rash, 04/18/20) risperidone (Verified Allergy, Mild, RASH, 04/18/20) prednisone (Verified Adverse Reaction, Intermediate, anxiety, agitation, 04/18/20) quetiapine (Verified Adverse Reaction, Intermediate, OCULOGYRIC CRISIS, 04/18/20) Home Medications Scheduled Aripiprazole (Aripiprazole) 30 Mg Tablet, 15 MG PO BID, (Reported) Benztropine Mesylate (Benztropine Mesylate) 0.5 Mg Tablet, 0.5 MG PO BID, (Repo rted) Calcium Carbonate/Vitamin D3 (Calcium 600-Vit D3 800 Tablet) 1 Each Tablet, 1 TAB PO DAILY, (Reported) Hydroxyzine Pamoate (Hydroxyzine Pamoate) 25 Mg Capsule, 25 MG PO DAILY, (Reported) Metformin HCl (Metformin HCl) 500 Mg Tablet, 500 MG PO BIDWM, (Reported) BREAKFAST AND DINNER Oxcarbazepine (Trileptal) 600 Mg Tablet, 600 MG PO BID, (Reported) Propranolol Hcl (Inderal LA) 60 Mg Cap.sa.24h, 60 MG PO DAILY, (Reported) Vitamin E (Dl,Tocopheryl Acet) (Vitamin E) 400 Unit Capsule, 400 UNIT PO DAILY, (Reported) Scheduled PRN Acetaminophen (Acetaminophen) 500 Mg Tablet, 1,000 MG PO Q6H PRN for PAIN, (Reported) Melatonin (Melatonin) 3 Mg Tablet, 3 MG PO QHS PRN for INSOMNIA, (Reported) Trazodone HCl (Trazodone HCl) 50 Mg Tablet, 50 MG PO QHS PRN for SLEEP, (Reported) Cherelle Ramírez PA-C Jun 11, 2020 12:58
[2020-06-12 06:36] VITALS: BP 128/57
[2020-06-12] MEDS: VITAMIN E 400 INTERNATIONAL UNITS CAP PO SCH (08:26)
[2020-06-12 08:27] VITALS: BP 139/78
[2020-06-12] MEDS: metFORMIN (GLUCOPHAGE) 500 MG TAB PO SCH (08:27)
[2020-06-12] MEDS: ARIPiprazole 15 MG TAB (AbiLIFY) PO SCH (08:27)
[2020-06-12] MEDS: PROPRANOLOL 60 MG LA CAP PO SCH (08:27)
[2020-06-12] MEDS: BENZTROPINE 0.5 MG TAB PO SCH (08:28)
[2020-06-12] MEDS: hydrOXYzine 25 MG TAB PO SCH (08:28)
[2020-06-12] MEDS: OXcarbazepine 300 MG TAB PO SCH (08:28)
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
== END 2020-06-12 13:25 | disposition home or self-care (01) | DRG 754 ==
LOC: M ED 21:50 → M ED INP 06-06 13:23 → M PSY 06-06 15:56
PROVIDERS: ADMIT Psychiatry & Neurology Psychiatry; ATTEND Psychiatry & Neurology Addiction Medicine
DX: F32.9 Major depressive disorder, single episode, unspecified (principal); E87.1 Hypo-osmolality and hyponatremia; R45.851 Suicidal ideations; E11.9 Type 2 diabetes mellitus without complications; F84.0 Autistic disorder; Z79.899 Other long term (current) drug therapy; Z88.0 Allergy status to penicillin; Z88.8 Allergy status to other drugs, medicaments and biological substances; E03.9 Hypothyroidism, unspecified; L30.9 Dermatitis, unspecified

== ENCOUNTER → 2020-08-04 | Outpatient (REF) | payer MEDICAID ==
[~2020-08-04] MED LIST changes: +ABIL1TAB12 PO; +ARIP1TAB44 PO
== END ==
LOC: M PLALAB 10:04
PROVIDERS: ATTEND Family Medicine
DX: R73.01 Impaired fasting glucose (principal); R79.89 Other specified abnormal findings of blood chemistry

== ENCOUNTER → 2020-08-04 | Outpatient (CLI) | payer MEDICAID ==
[2020-08-04 14:51] LABS: HEMOGLOBIN A1c 5.7 %
== END ==
LOC: M PLALAB 10:07
PROVIDERS: ATTEND Family Medicine
DX: R73.01 Impaired fasting glucose (principal); R79.89 Other specified abnormal findings of blood chemistry

== ENCOUNTER → 2020-08-04 | Outpatient (REF) | payer MEDICAID ==
[2020-08-04 14:05] LABS: HEMATOCRIT 41.4 % (36.0-47.0); HEMOGLOBIN 13.3 g/dl (12.0-15.5); MEAN CORPUSCULAR HEMOGLOBIN 27.5 pg (27.0-33.0); MEAN CORPUSCULAR HGB CONC 32.1 g/dl (32.0-36.5); MEAN CORPUSCULAR VOLUME 85.7 fl (80.0-96.0); PLATELET COUNT, AUTOMATED 249 10^3/uL (150-450); RED BLOOD COUNT 4.83 10^6/uL (4.00-5.40); WHITE BLOOD COUNT 9.4 10^3/uL (4.0-10.0)
[2020-08-04 14:19] LABS: ALBUMIN 3.7 GM/DL (3.2-5.2); ALT/SGPT 41 U/L (12-78); BILIRUBIN,TOTAL 0.3 MG/DL (0.2-1.0); BLOOD UREA NITROGEN 15 MG/DL (7-18); CALCIUM LEVEL 9.4 MG/DL (8.5-10.1); CARBON DIOXIDE LEVEL 29 MEQ/L (21-32); CHLORIDE LEVEL 104 MEQ/L (98-107); CREATININE FOR GFR 0.82 MG/DL (0.55-1.30); FOLATE > 24.0 NG/ML; GLOMERULAR FILTRATION RATE > 60.0 (>60); GLUCOSE, FASTING 95 MG/DL (70-100); POTASSIUM SERUM 4.4 MEQ/L (3.5-5.1); SODIUM LEVEL 139 MEQ/L (136-145); TOTAL PROTEIN 7.2 GM/DL (6.4-8.2); VITAMIN B12 LEVEL 798 PG/ML
== END ==
LOC: M PLALAB 13:39
DX: Z13.39 Encounter for screening examination for other mental health and behavioral disorders (principal)

== ENCOUNTER 2020-08-22 11:46 | Inpatient (IN) | payer MEDICAID ==
[~2020-08-22] VITALS: Ht 160 cm; Wt 98.2 kg
[~2020-08-22 11:46] MED LIST changes: -VITA-157 PO; +VITAE40CA PO
[2020-08-22] MEDS ORDERED: TRIA1CR80 TOP (12:46)
[2020-08-22] MEDS ORDERED: MULT-40 PO (12:46)
[2020-08-22 12:59] LABS: HEMATOCRIT 42.2 % (36.0-47.0); HEMOGLOBIN 13.5 g/dl (12.0-15.5); MEAN CORPUSCULAR HEMOGLOBIN 27.3 pg (27.0-33.0); MEAN CORPUSCULAR VOLUME 85.3 fl (80.0-96.0); PLATELET COUNT, AUTOMATED 257 10^3/uL (150-450); RED BLOOD COUNT 4.95 10^6/uL (4.00-5.40); WHITE BLOOD COUNT 11.5 10^3/uL (4.0-10.0)
[2020-08-22 13:12] LABS: HCG, SERUM QUALITATIVE NEGATIVE (NEGATIVE)
[2020-08-22 13:22] LABS: AMPHETAMINES LEVEL URINE NEGATIVE (NEGATIVE); BARBITURATES URINE NEGATIVE (NEGATIVE); BENZODIAZEPINES URINE NEGATIVE (NEGATIVE); CANNABINOIDS URINE NEGATIVE (NEGATIVE); COCAINE METABOLITE URINE NEGATIVE (NEGATIVE); METHADONE URINE NEGATIVE (NEGATIVE); OPIATES URINE NEGATIVE (NEGATIVE); PHENCYCLIDINE URINE NEGATIVE (NEGATIVE)
[2020-08-22 13:30] LABS: ACETAMINOPHEN LEVEL < 2.0 UG/ML (10.0-30.0); ALBUMIN 3.9 GM/DL (3.2-5.2); ALT/SGPT 32 U/L (12-78); BILIRUBIN,DIRECT < 0.1 MG/DL (0.0-0.2); BILIRUBIN,TOTAL 0.2 MG/DL (0.2-1.0); BLOOD UREA NITROGEN 13 MG/DL (7-18); CALCIUM LEVEL 9.2 MG/DL (8.5-10.1); CARBON DIOXIDE LEVEL 25 MEQ/L (21-32); CHLORIDE LEVEL 105 MEQ/L (98-107); CREATININE FOR GFR 0.78 MG/DL (0.55-1.30); ETHYL ALCOHOL (ETHANOL) < 0.003 % (0.000-0.010); GLOMERULAR FILTRATION RATE > 60.0 (>60); GLUCOSE, FASTING 116 MG/DL (70-100); POTASSIUM SERUM 4.4 MEQ/L (3.5-5.1); SALICYLATE LEVEL < 1.7 MG/DL (5.0-30.0); SODIUM LEVEL 137 MEQ/L (136-145); TOTAL PROTEIN 7.2 GM/DL (6.4-8.2)
[2020-08-22] MEDS ORDERED: TRIAMCINOLONE ACET 0.1% CREAM 80 GM TOP PRN (15:15)
[2020-08-22] MEDS ORDERED: traZODone 50 MG TAB PO PRN (15:15)
[2020-08-22] MEDS ORDERED: MOM 30ML SUSPENSION UDC PO PRN (15:15)
[2020-08-22] MEDS ORDERED: MAALOX 30 ML SUSP *UDC PO PRN (15:15)
[2020-08-22] MEDS ORDERED: ACETAMINOPHEN TAB 650MG DOSE (2X325MG) PO PRN (15:15)
[2020-08-22 15:54] LABS: RSV AMPLIFICATION NEGATIVE (NEGATIVE)
[2020-08-22] MEDS: ARIPiprazole 15 MG TAB (AbiLIFY) PO SCH (21:00)
[2020-08-22] MEDS: OXcarbazepine 300 MG TAB PO SCH (21:11)
[2020-08-22] MEDS: BENZTROPINE 0.5 MG TAB PO SCH (21:11)
[2020-08-22 22:18] VITALS: BP 138/90
[2020-08-23 06:36] VITALS: BP 135/75
[2020-08-23] MEDS: BENZTROPINE 0.5 MG TAB PO SCH ×2 (08:44→20:18)
[2020-08-23] MEDS: ARIPiprazole 15 MG TAB (AbiLIFY) PO SCH ×2 (08:44→20:18)
[2020-08-23] MEDS: MULTIVITAMINS/MINERALS THERAP 1 TAB PO SCH (08:45)
[2020-08-23] MEDS: hydrOXYzine 25 MG TAB PO SCH (08:45)
[2020-08-23] MEDS: OXcarbazepine 300 MG TAB PO SCH ×2 (08:45→20:18)
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
[2020-08-23] MEDS: POLYSPORIN TOPICAL OINTMENT 15GM TOP SCH ×2 (11:15→20:18)
[2020-08-23] MEDS: PROPRANOLOL 60 MG LA CAP PO SCH (11:15)
--- NOTE | 2020-08-23 14:20 | ECGEPIP ---
[facility] - ED Test Date: 2020-08-22 Pat Name: LISA HUGO Department: Room: - Gender: Female Bellows Filler: CHRISTIANO : 1985 Requested By: VASILIY Moyer Order Number: [id number] Reading MD: Dionne Kumar Measurements Intervals [place] Rate: 82 P: 67 MS: 150 QRS: 46 QRSD: 74 T: 46 QT: 354 QTc: 413 Interpretive Statements Normal sinus rhythm with sinus arrhythmia Possible Anterior infarct , age undetermined similar 06/05/20 Electronically Signed on 08-23-2020 14:20:34 EST by Dionne Kumar
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
[2020-08-23 16:29] VITALS: BP 116/60
[2020-08-24 06:30] VITALS: BP 138/78
[2020-08-24] MEDS: ARIPiprazole 15 MG TAB (AbiLIFY) PO SCH ×2 (08:15→20:44)
[2020-08-24] MEDS: BENZTROPINE 0.5 MG TAB PO SCH ×2 (08:15→20:44)
[2020-08-24] MEDS: PROPRANOLOL 60 MG LA CAP PO SCH (08:15)
[2020-08-24] MEDS: MULTIVITAMINS/MINERALS THERAP 1 TAB PO SCH (08:16)
[2020-08-24] MEDS: hydrOXYzine 25 MG TAB PO SCH (08:16)
[2020-08-24] MEDS: OXcarbazepine 300 MG TAB PO SCH ×2 (08:16→20:44)
[2020-08-24] MEDS: POLYSPORIN TOPICAL OINTMENT 15GM TOP SCH ×2 (08:17→20:45)
--- NOTE | 2020-08-24 09:49 | MHIPNPDOC ---
[facility] Progress Note Progress Note DATE OF SERVICE: 08/24/20 HISTORY: This is Day 3 of patient's admission Reason for admission Patient is a 35 -year-old Single, Disabled, Domiciled, , female, who made suicidal gestures and superficial lacerated her neck and wrist. She also had pills her her hand (handful of Ibuprofen) but her mother talked her out of taking the pills while she was on the phone. She states that she was speaking to the Coordinator for the [employer] for housing and because of the initial protocols - she became angry when she was told that she could not have her computer due to the cords and belt. She then became angry with the restrictions and became suicidal. She reports that she felt that they were singling her out because of the suicidal ideations. She understands that at this time, the restrictions will decrease as she has improved behaviors. She would like to apologize to the clinical pharmacy coordinator and feels guilty. "I have been feeling suicidal for a year now" Patient has been admitted to the hospital whenever she has been says that once she starts to obsess about the thoughts and feelings that she has difficulty stopping the ideas about suicide. Reports that she feels suicide and then thinks excessively about suicide. Patient has a history of obsessive-compulsive disorder. Per ED Report: Pt reports that she was on the phone with her [employer] coordinator who informed her that she will not be able to have any items that have cords in her room until they "get to know me." Pt reports that this upset her because "music is how I cope, I can't live without my computer." Pt reports that she started yelling and slammed the door. Pt reports that she wanted it to "just be over" and cut her arm and neck with box cutters. Pt reports she stopped because she "has burrell carpet" and didn't want to stain the carpet. Pt then dumped a bottle of pills in her hand and was going to take them but then called her mom on the phone (mom was downstairs) and told her that she was going to "fucking kill myself!" Pt reports her mother told her to put the pills back in the bottle and "we are going to the ER." Pt reports that she feels trapped and that "time is closing in on me, I feel a current pulling me in to kill myself." Pt reports that she hears a voice in her head that tells her to "kill myself." Pt reports that she has thoughts of suicide every day but does not act on it. Pt then reported that she attempted suicide four times in June 2020 and three times in July 2020. Pt reports she has attempted hanging herself, cutting herself, and overdose during these attempts. Pt reports that she does not want to be admitted because there are "like 14 people ahead of me." Pt also reports that her mom will want her to be admitted but she does not want to be. Pt then reported that she doesn't know if she will be safe at home with the box office agent and pills that she has hidden in her room. When TW attempted to leave Pt reported having more to say and preceded to tell TW about the dream she had last night about a girl who wanted to "commit suicide." Pt then told TW that she was scared and did not want TW to leave her alone. At this time Pt is unable to CFS. VITAL SIGNS: See below. CURRENT MEDICATIONS: See below. MENTAL STATUS EXAMINATION: Patient is a 35 -year-old Single, Disabled, Domiciled, , female, who made suicidal gestures and superficial lacerated her neck and wrist. Patient is dressed appropriately, hygiene and grooming is good. Maintains good eye contact Speech: Is fluid, conversant, normal rate, tone and volume Language skills are intact Thought processes including: linear and goal oriented Thought content: denies depression and anxiety. Denies suicidal/homicidal ideation, planning or intent. Abstract reasoning, and computation: fair Description of associations: denies, none observed Description of abnormal or psychotic thoughts: denies, none observed. Judgment: fair Insight: fair Orientation: alert and oriented to person, place, time and situation Recent and remote memory: intact Attention span and concentration: good Language: expansive Fund of knowledge: average Mood: "bored, anxious". Affect: constricted DIAGNOSES: Autism Unspecified Mood Disorder Unspecified Anxiety Disorder History of Alcohol Use Disorder ASSESSMENT: Complains of not being able to sleep. Has intermitted sleep, has some bad dreams. Wants to leave Friday. She states that she received information about not qualifying for the fpc, she reported that she took the information fairly well but that she did not over react, states she cried but in the past she would have made her be very angry, spout out mean words to other people around her, self-sabotage and cut herself. Reports that she is not suicidal today. She states that she comes in cycles and ruminates on suicidal thinking when she has increased stressors. Patient given CBT worksheets on Anger, Relaxation and Mood Monitoring. MANAGEMENT PLAN: Continue all medications, TIME SPENT: 25 minutes. Vital Signs Vital Signs Date Time Temp Pulse Resp B/P (MAP) Pulse Ox O2 Delivery O2 Flow Rate FiO2 08/24/20 08:15 89 138/78 08/24/20 06:30 98.4 18 98 Room Air Current Medications Current Medications Medications (Trade) Dose Ordered Sig/Cory Route PRN Reason Start Time Stop Time Status Last Admin Dose Admin Acetaminophen (Tylenol Tab) 650 mg Q6HP PRN PO HEADACHE or DISCOMFORT 08/22/20 15:15 Al Hydrox/Mg Hydrox/Simethicone (Mylanta) 30 ml Q4HP PRN PO HEARTBURN/INDIGESTION 08/22/20 15:15 Aripiprazole (AbiLIFY) 15 mg BID PO 08/22/20 21:00 08/24/20 08:15 Bacitracin/ Polymyxin B Sulfate (Polysporin Top Oint) SCRATCHES BID TOP 08/23/20 09:00 08/24/20 08:17 Benztropine Mesylate (Cogentin) 0.5 mg BID PO 08/22/20 21:00 08/24/20 08:15 Home Med (Med Rec Complete!) ASDIRECTED XX 08/22/20 12:50 08/22/20 13:01 DC Hydroxyzine HCl (Atarax) 25 mg DAILY PO 08/23/20 09:00 08/24/20 08:16 Magnesium Hydroxide (Milk Of Magnesia) 30 ml DAILYPRN PRN PO CONSTIPATION 08/22/20 15:15 Miscellaneous (Unresolved Clarification Entry) SEE LABEL COMMENTS DAILY XX 08/23/20 09:00 08/23/20 11:42 DC Multivitamins (Theragram-M) 1 tab DAILY PO 08/23/20 09:00 08/24/20 08:16 Oxcarbazepine (Trileptal) 600 mg BID PO 08/22/20 21:00 08/24/20 08:16 Propranolol HCl (Inderal La) 60 mg DAILY PO 08/23/20 09:00 08/24/20 08:15 Trazodone HCl (Desyrel) 50 mg QHS PRN PO SLEEP 08/22/20 15:15 Triamcinolone Acetonide (Kenalog 0.1% Cream) ON HANDS BID PRN TOP RASH 08/22/20 15:15 Allergies Coded Allergies: cariprazine (Verified Allergy, Intermediate, increased SI, 04/18/20) Penicillins (Verified Allergy, Mild, rash, 04/18/20) risperidone (Verified Allergy, Mild, RASH, 04/18/20) prednisone (Verified Adverse Reaction, Intermediate, anxiety, agitation, 04/18/20) quetiapine (Verified Adverse Reaction, Intermediate, OCULOGYRIC CRISIS, 04/18/20) brexpiprazole (Verified Adverse Reaction, Unknown, SUICIDAL, 08/22/20) MEGHAN MÁRQUEZ NP Aug 24, 2020 09:38
[2020-08-24 17:21] VITALS: BP 143/67
[2020-08-25 06:01] VITALS: BP 138/76
[2020-08-25 08:20] VITALS: BP 138/76
[2020-08-25] MEDS: PROPRANOLOL 60 MG LA CAP PO SCH (08:20)
[2020-08-25] MEDS: ARIPiprazole 15 MG TAB (AbiLIFY) PO SCH (08:20)
[2020-08-25] MEDS: OXcarbazepine 300 MG TAB PO SCH (08:20)
[2020-08-25] MEDS: hydrOXYzine 25 MG TAB PO SCH (08:21)
[2020-08-25] MEDS: MULTIVITAMINS/MINERALS THERAP 1 TAB PO SCH (08:21)
[2020-08-25] MEDS: BENZTROPINE 0.5 MG TAB PO SCH (08:21)
[2020-08-25] MEDS: POLYSPORIN TOPICAL OINTMENT 15GM TOP SCH (09:00)
--- NOTE | 2020-08-25 13:58 | MHDSPDOC ---
[facility] Discharge Summary Discharge Summary DATE OF ADMISSION: Aug 22, 2020 at 15:14 DATE OF DISCHARGE: August 25, 2020 at 1305 DISCHARGE DIAGNOSES: Autism Adjustment Disorder with Mixed Disturbances of Mood and Conduct Unspecified Anxiety Disorder History of Alcohol Use Disorder REASON FOR ADMISSION: Today is Day 4 of patient's admission and she is being discharged today. Patient is a 35 -year-old Single, Disabled, Domiciled, , female, who made suicidal gestures and superficial lacerated her neck and wrist. She also had pills her her hand (handful of Ibuprofen) but her mother talked her out of taking the pills while she was on the phone. She states that she was speaking to the Coordinator for the [employer] for housing and because of the initial protocols - she became angry when she was told that she could not have her computer due to the cords and belt. She then became angry with the restrictions and became suicidal. She reports that she felt that they were singling her out because of the suicidal ideations. She understands that at this time, the restrictions will decrease as she has improved behaviors. She would like to apologize to the log operations coordinator and feels guilty. "I have been feeling suicidal for a year now" Patient has been admitted to the hospital whenever she has been says that once she starts to obsess about the thoughts and feelings that she has difficulty stopping the ideas about suicide. Reports that she feels suicide and then thinks excessively about suicide. Patient has a history of obsessive-compulsive disorder. Per ED Report: Pt reports that she was on the phone with her [employer] coordinator who informed her that she will not be able to have any items that have cords in her room until they "get to know me." Pt reports that this upset her because "music is how I cope, I can't live without my computer." Pt reports that she started yelling and slammed the door. Pt reports that she wanted it to "just be over" and cut her arm and neck with box cutters. Pt reports she stopped because she "has burrell carpet" and didn't want to stain the carpet. Pt then dumped a bottle of pills in her hand and was going to take them but then called her mom on the phone (mom was downstairs) and told her that she was going to "fucking kill myself!" Pt reports her mother told her to put the pills back in the bottle and "we are going to the ER." Pt reports that she feels trapped and that "time is closing in on me, I feel a current pulling me in to kill myself." Pt reports that she hears a voice in her head that tells her to "kill myself." Pt reports that she has thoughts of suicide every day but does not act on it. Pt then reported that she attempted suicide four times in June 2020 and three times in July 2020. Pt reports she has attempted hanging herself, cutting herself, and overdose during these attempts. Pt reports that she does not want to be admitted because there are "like 14 people ahead of me." Pt also reports that her mom will want her to be admitted but she does not want to be. Pt then reported that she doesn't know if she will be safe at home with the dry box tender and pills that she has hidden in her room. When TW attempted to leave Pt reported having more to say and preceded to tell TW about the dream she had last night about a girl who wanted to "commit suicide." Pt then told TW that she was scared and did not want TW to leave her alone. At this time Pt is unable to CFS. TREATMENT AND PROGRESS ON THE UNIT: Patient was admitted to the [facility] on a 9.39 legal status he was afforded the following treatment modalities: 1) Individual Therapy 2) Group Therapy 3) Medication Management 4) Milieu Therapy 5) Safe Environment HOSPITAL COURSE: Grace is a 35 year old Single, Disabled, Domiciled, Female who presented to the hospital after a suicide gesture of superficially lacerating her wrist and neck with box cutters. She had also reported that she had a handful of Ibuprofen in her hand threatening to swallow them while she was on the phone with her mother. She had had multiple admissions to this facility for similar presentations. Patient has a diagnosis of autism and a long history of impulsive suicide gestures. She had reported that she was told she could not have her computer and belt at a retirement that she was hoping to live at and she began yelling at the log operations coordinator yelling derogatory names and being threatening. The culmination was cutting herself and threatening to take an overdose, her mother called the police. On initial interview, patient states that she is very remorseful. She understands that she lacks good coping and that many of her impulsivities towards self harm is due to poor reaction/poor coping. Patient was reporting that the crisis was over and although she had been denied the opportunity for independence she was reporting that she was keeping herself in a positive mood with interacting with peers and attending groups and doing reflection techniques in order to review h er mistakes. Patient was started on her home medications, she denies that she needed any titration of any of her psychotropics. She requested to be discharged to home prior to the weekend as she will start her menses this weekend. She denies suicidality, homicidality, depression, anxiety, auditory or visual hallucinations. She was compliant with treatment, social with peers and cooperative in the milieu. She met criteria for discharge and the treatment team unanimously agrees that patient is not a danger to herself or others and that she is appropriate to go home. DISCHARGE ASSESSMENT: In today's interview, patient is alert and oriented, pts dress is appropriate. Hygiene and grooming is well-kempt. Smiles on approach and is pleasant and engaged in the interview. Denies depression and anxiety. Denies suicidal and homicidal ideation, planning or intent. Denies and is not o bserved with aura, psychotic symptoms of delusions, bizarre thinking, obsessions, paranoia, ruminations illogical thoughts, flight of ideas or having poor insight and judgement. Patient has normal mentation, declines further hospitalization on a voluntary status and meets criteria for discharge today. Patient encouraged to return to hospital if his symptoms worsen or change and encouraged to call unit if he/she/they needs to speak to provider for questions regarding medications or care. MENTAL STATUS EXAMINATION ON DISCHARGE: Patient is a 35 -year-old Single, Disabled, Domiciled, , female, who made suicidal gestures and superficial lacerated her neck and wrist. Speech: Is fluid, conversant, normal rate, tone and volume Language skills are intact Thought processes including: linear and goal oriented Thought content: denies depression and anxiety. Denies suicidal/homicidal ideation, planning or intent. Abstract reasoning, and computation: fair Description of associations: denies, none observed Description of abnormal or psychotic thoughts: denies, none observed. Judgment: fair Insight: fair Orientation: alert and oriented to person, place, time and situation Recent and remote memory: intact Attention span and concentration: good Language: expansive Fund of knowledge: average Mood: Euthymic Mood Affect: reactive MEDICATIONS ON DISCHARGE: see Medication Reconciliation PLAN/FOLLOWUP ARRANGEMENTS: [facility] The amount of time spent in the coordination of care for this patient was approximately 25 minutes. ETOH/Disorder Med Rx ETOH/DRUG DISORDER RX: N/A Vital Signs/I&Os Vital Signs Date Time Temp Pulse Resp B/P (MAP) Pulse Ox O2 Delivery O2 Flow Rate FiO2 08/25/20 08:20 90 138/76 08/25/20 06:01 99.0 20 98 Room Air Medications Scheduled Aripiprazole (Aripiprazole) 30 Mg Tablet, 15 MG PO BID, (Reported) Benztropine Mesylate (Benztropine Mesylate) 0.5 Mg Tablet, 0.5 MG PO BID, (Reported) Calcium Carbonate/Vitamin D3 (Calcium 600-Vit D3 800 Tablet) 1 Each Tablet, 1 TAB PO DAILY, (Reported) Hydroxyzine Pamoate (Hydroxyzine Pamoate) 25 Mg Capsule, 25 MG PO DAILY, (Reported) Multivitamin (Multivitamins) 1 Each Tablet, 1 TAB PO DAILY, (Reported) Oxcarbazepine (Trileptal) 600 Mg Tablet, 600 MG PO BID, (Reported) Propranolol Hcl (Inderal LA) 60 Mg Cap.sa.24h, 60 MG PO DAILY, (Reported) Scheduled PRN Acetaminophen (Acetaminophen) 500 Mg Tablet, 1,000 MG PO Q6H PRN for PAIN, (Reported) Melatonin (Melatonin) 3 Mg Tablet, 3 MG PO QHS PRN for INSOMNIA, (Reported) Trazodone HCl (Trazodone HCl) 50 Mg Tablet, 50 MG PO QHS PRN for SLEEP, (Repo rted) Triamcinolone Acet (Triamcinolone Acetonide 0.1% Crm) 80 Gm Cream..g., 1 APLCT TOP BID PRN for RASH, (Reported) APPLIES TO HANDS Allergies Coded Allergies: cariprazine (Verified Allergy, Intermediate, increased SI, 04/18/20) Penicillins (Verified Allergy, Mild, rash, 04/18/20) risperidone (Verified Allergy, Mild, RASH, 04/18/20) prednisone (Verified Adverse Reaction, Intermediate, anxiety, agitation, 04/18/20) quetiapine (Verified Adverse Reaction, Intermediate, OCULOGYRIC CRISIS, 04/18/20) brexpiprazole (Verified Adverse Reaction, Unknown, SUICIDAL, 08/22/20) MEGHAN MÁRQUEZ NP Aug 25, 2020 13:09
== END 2020-08-25 13:48 | disposition home or self-care (01) | DRG 755 ==
LOC: M ED 11:46 → M ED INP 15:14 → M PSY 21:49
PROVIDERS: ADMIT Psychiatry & Neurology Child & Adolescent Psychiatry; ATTEND Psychiatry & Neurology Psychiatry
DX: F43.25 Adjustment disorder with mixed disturbance of emotions and conduct (principal); F84.0 Autistic disorder; F41.9 Anxiety disorder, unspecified; F10.11 Alcohol abuse, in remission; E11.9 Type 2 diabetes mellitus without complications; M54.5 Low back pain; Z91.5 Personal history of self-harm; Z20.822 Contact with and (suspected) exposure to COVID-19; Z79.899 Other long term (current) drug therapy; Z88.0 Allergy status to penicillin; Z88.8 Allergy status to other drugs, medicaments and biological substances; Z91.410 Personal history of adult physical and sexual abuse; R45.851 Suicidal ideations

== ENCOUNTER 2020-11-14 12:37 | Emergency (ER) | payer MEDICAID ==
[~2020-11-14] VITALS: Ht 157.5 cm; Wt 100.5 kg
[~2020-11-14 12:37] MED LIST changes: +MULT-40 PO; +TRIA1CR80 TOP
[2020-11-14 12:49] VITALS: BP 137/63
[2020-11-14 13:53] LABS: HEMOGLOBIN 13.2 g/dl (12.0-15.5); MEAN CORPUSCULAR HEMOGLOBIN 27.6 pg (27.0-33.0); MEAN CORPUSCULAR HGB CONC 32.2 g/dl (32.0-36.5); MEAN CORPUSCULAR VOLUME 85.8 fl (80.0-96.0); PLATELET COUNT, AUTOMATED 295 10^3/uL (150-450); RED BLOOD COUNT 4.78 10^6/uL (4.00-5.40); WHITE BLOOD COUNT 8.6 10^3/uL (4.0-10.0)
[2020-11-14 14:17] LABS: HCG, SERUM QUALITATIVE NEGATIVE (NEGATIVE)
[2020-11-14 14:27] LABS: AMPHETAMINES LEVEL URINE NEGATIVE (NEGATIVE); BARBITURATES URINE NEGATIVE (NEGATIVE); BENZODIAZEPINES URINE NEGATIVE (NEGATIVE); CANNABINOIDS URINE NEGATIVE (NEGATIVE); COCAINE METABOLITE URINE NEGATIVE (NEGATIVE); METHADONE URINE NEGATIVE (NEGATIVE); OPIATES URINE NEGATIVE (NEGATIVE); PHENCYCLIDINE URINE NEGATIVE (NEGATIVE)
[2020-11-14 14:33] LABS: ACETAMINOPHEN LEVEL < 2.0 UG/ML (10.0-30.0); ALBUMIN 3.8 GM/DL (3.2-5.2); ALT/SGPT 35 U/L (12-78); BILIRUBIN,DIRECT < 0.1 MG/DL (0.0-0.2); BILIRUBIN,TOTAL 0.3 MG/DL (0.2-1.0); BLOOD UREA NITROGEN 10 MG/DL (7-18); CALCIUM LEVEL 9.7 MG/DL (8.5-10.1); CARBON DIOXIDE LEVEL 27 MEQ/L (21-32); CHLORIDE LEVEL 104 MEQ/L (98-107); CREATININE FOR GFR 0.75 MG/DL (0.55-1.30); ETHYL ALCOHOL (ETHANOL) < 0.003 % (0.000-0.010); GLOMERULAR FILTRATION RATE > 60.0 (>60); GLUCOSE, FASTING 105 MG/DL (70-100); POTASSIUM SERUM 4.4 MEQ/L (3.5-5.1); SALICYLATE LEVEL < 1.7 MG/DL (5.0-30.0); SODIUM LEVEL 136 MEQ/L (136-145); TOTAL PROTEIN 7.4 GM/DL (6.4-8.2)
[2020-11-14] MEDS ORDERED: PRAZ1CAP (17:23)
== END 2020-11-14 18:49 | disposition home or self-care (01) ==
LOC: M ED 12:37
DX: F32.9 Major depressive disorder, single episode, unspecified (principal); F25.9 Schizoaffective disorder, unspecified; F84.0 Autistic disorder; F10.21 Alcohol dependence, in remission; F42.9 Obsessive-compulsive disorder, unspecified; Z79.899 Other long term (current) drug therapy; Z88.0 Allergy status to penicillin; Z88.8 Allergy status to other drugs, medicaments and biological substances

== ENCOUNTER 2020-12-19 12:43 | Observation (INO) | payer MEDICAID ==
[~2020-12-19] VITALS: Ht 157.5 cm; Wt 99.1 kg
[~2020-12-19 12:43] MED LIST changes: +PRAZ1CAP PO
[2020-12-19] MEDS ORDERED: OXCA600T8 (13:07)
[2020-12-19 13:25] LABS: BASO % 0.5 % (0.0-1.0); EOS # 0.1 10^3/uL (0.0-0.5); EOS % 0.6 % (0.0-3.0); HEMATOCRIT 42.1 % (36.0-47.0); LYMPH % 11.2 % (24.0-44.0); MEAN CORPUSCULAR HEMOGLOBIN 28.1 pg (27.0-33.0); MEAN CORPUSCULAR HGB CONC 33.3 g/dl (32.0-36.5); MEAN CORPUSCULAR VOLUME 84.4 fl (80.0-96.0); MONO # 0.6 10^3/uL (0.0-0.8); MONO % 6.7 % (2.0-8.0); NEUTROPHILS # 7.1 10^3/uL (1.5-8.5); NEUTROPHILS % 80.4 % (36.0-66.0); PLATELET COUNT, AUTOMATED 285 10^3/uL (150-450); RED BLOOD COUNT 4.99 10^6/uL (4.00-5.40); WHITE BLOOD COUNT 8.9 10^3/uL (4.0-10.0)
[2020-12-19 13:49] LABS: AMPHETAMINES LEVEL URINE NEGATIVE (NEGATIVE); BARBITURATES URINE NEGATIVE (NEGATIVE); BENZODIAZEPINES URINE NEGATIVE (NEGATIVE); CANNABINOIDS URINE NEGATIVE (NEGATIVE); COCAINE METABOLITE URINE NEGATIVE (NEGATIVE); METHADONE URINE NEGATIVE (NEGATIVE); OPIATES URINE NEGATIVE (NEGATIVE); PHENCYCLIDINE URINE NEGATIVE (NEGATIVE)
[2020-12-19 13:59] LABS: HCG, SERUM QUALITATIVE NEGATIVE (NEGATIVE)
[2020-12-19 14:01] LABS: ACETAMINOPHEN LEVEL < 2.0 UG/ML (10.0-30.0); ALT/SGPT 34 U/L (12-78); BILIRUBIN,DIRECT < 0.1 MG/DL (0.0-0.2); BILIRUBIN,TOTAL 0.3 MG/DL (0.2-1.0); BLOOD UREA NITROGEN 12 MG/DL (7-18); CALCIUM LEVEL 9.2 MG/DL (8.5-10.1); CARBON DIOXIDE LEVEL 25 MEQ/L (21-32); CHLORIDE LEVEL 101 MEQ/L (98-107); CPK CREATINE PHOSPHOKINASE 151 U/L (26-192); CREATININE FOR GFR 0.76 MG/DL (0.55-1.30); ETHYL ALCOHOL (ETHANOL) < 0.003 % (0.000-0.010); GLOMERULAR FILTRATION RATE > 60.0 (>60); GLUCOSE, FASTING 114 MG/DL (70-100); POTASSIUM SERUM 4.6 MEQ/L (3.5-5.1); SALICYLATE LEVEL < 1.7 MG/DL (5.0-30.0); SODIUM LEVEL 132 MEQ/L (136-145); TOTAL PROTEIN 7.5 GM/DL (6.4-8.2)
[2020-12-19 14:11] LABS: RSV AMPLIFICATION NEGATIVE (NEGATIVE)
[2020-12-19 14:16] LABS: OSMOLALITY SERUM 282 MOSM/KG (275-295)
[2020-12-19] MEDS ORDERED: CHARCOAL ACTIVATED LIQUID 25 GM/120 ML BTL PO ONE (14:35)
[2020-12-19] MEDS ORDERED: traZODone 50 MG TAB PO PRN (15:40)
[2020-12-19] MEDS ORDERED: ACETAMINOPHEN 500 MG TAB PO PRN (15:40)
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
[2020-12-19 18:34] VITALS: BP 128/62
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
[2020-12-19 20:00] VITALS: BP 120/56
[2020-12-19] MEDS: OXcarbazepine 300 MG TAB PO SCH (20:01)
[2020-12-19] MEDS: ARIPiprazole 15 MG TAB (AbiLIFY) PO SCH (20:01)
[2020-12-19] MEDS: BENZTROPINE 0.5 MG TAB PO SCH (20:01)
[2020-12-19] MEDS ORDERED: RAMELTEON 8 MG TAB (ROZEREM) PO SCH (21:00)
[2020-12-19] MEDS ORDERED: PRAZOSIN 1 MG CAP PO SCH (21:00)
[2020-12-20] VITALS: BP 117/58
[2020-12-20 04:00] VITALS: BP 107/52
[2020-12-20 05:58] LABS: HEMATOCRIT 39.4 % (36.0-47.0); HEMOGLOBIN 12.8 g/dl (12.0-15.5); MEAN CORPUSCULAR HEMOGLOBIN 27.7 pg (27.0-33.0); MEAN CORPUSCULAR HGB CONC 32.5 g/dl (32.0-36.5); MEAN CORPUSCULAR VOLUME 85.3 fl (80.0-96.0); PLATELET COUNT, AUTOMATED 250 10^3/uL (150-450); RED BLOOD COUNT 4.62 10^6/uL (4.00-5.40); WHITE BLOOD COUNT 7.4 10^3/uL (4.0-10.0)
[2020-12-20 06:27] LABS: BLOOD UREA NITROGEN 11 MG/DL (7-18); CALCIUM LEVEL 8.4 MG/DL (8.5-10.1); CARBON DIOXIDE LEVEL 27 MEQ/L (21-32); CHLORIDE LEVEL 99 MEQ/L (98-107); CREATININE FOR GFR 0.68 MG/DL (0.55-1.30); GLOMERULAR FILTRATION RATE > 60.0 (>60); GLUCOSE, FASTING 104 MG/DL (70-100); POTASSIUM SERUM 3.6 MEQ/L (3.5-5.1); SODIUM LEVEL 131 MEQ/L (136-145)
[2020-12-20 08:00] VITALS: BP 121/56
[2020-12-20] MEDS ORDERED: hydrOXYzine 25 MG TAB PO SCH (09:00)
[2020-12-20] MEDS: OXcarbazepine 300 MG TAB PO SCH (09:58)
[2020-12-20] MEDS: ARIPiprazole 15 MG TAB (AbiLIFY) PO SCH (09:58)
[2020-12-20] MEDS: BENZTROPINE 0.5 MG TAB PO SCH (09:58)
--- NOTE | 2020-12-20 10:27 | IPNPDOC ---
Subjective Date Seen The patient was seen on 12/20/20. Subjective Chief Complaint/HPI Ms. Watson is a 35 year old female with anxiety, depression, and autism spectrum disorder who presents with suicidal attempt by overdose. No events seen on telemetry. Patient completed 24 hour observation. This morning, she feels well. Denies chest pain or dyspnea. Patient is medically cleared to go to [facility]. Objective Physical Examination General Exam: Positive: Alert, Cooperative Eye Exam: Positive: EOMI; Negative: Sclera icteric ENT Exam: Positive: Atraumatic Neck Exam: Positive: Supple Chest Exam: Positive: Clear to auscultation; Negative: Rales, Rhonchi, Wheezing Heart Exam: Positive: Rate Normal, Regular Rhythm Abdomen Exam: Positive: Normal bowel sounds, Soft; Negative: Tenderness Extremity Exam: Positive: Edema (bilateral pitting edema) Neuro Exam: Positive: Normal Speech, Cranial Nerves 3-12 NL Psych Exam: Positive: Other (Reports still having suicidal ideation) Assessment /Plan Assessment Ms. Watson is a 35 year old female with anxiety, depression, and autism spectrum disorder who presents with suicidal attempt by overdose. Poison control recommends 24 hour observation and activated charcoal. Otherwise, vitals have been stable and qTC is not prolonged. Patient completed 24 hour observation. No events on the telemetry. Patient is medically cleared to go to [facility]. Plan/VTE VTE Prophylaxis Ordered?: Yes Plan 1. Suicidal attempt by overdose -Patient took 5 propranolol LA and 5 hydroxyzine -Patient still feels suicidal -Suicide precautions -Continue holding propranolol -Psychiatry consulted, recommendations appreciated 2. Depression/Anxiety/Schizoaffective/OCD -Continue aripiprazole, benztropine, and oxcarbazepine -Psychiatry consulted, recommendations appreciated 3. Insomnia -Melatonin switched to Rozerem -Continue trazodone 4. DVT ppx -Compression stockings Disposition: Completed 24hour observation. Patient medically cleared and is now pending bed availability in [facility] VS, I&O, 24H, [place] Vital Signs/I&O Vital Signs Date Time Temp Pulse Resp B/P (MAP) Pulse Ox O2 Delivery O2 Flow Rate FiO2 12/20/20 04:00 96.9 64 16 107/52 (70) 100 Room Air I&O- Last 24 Hours up to 6 AM 12/20/20 06:00 Intake Total 720 ml Output Total 350 ml Balance 370 ml Laboratory Data 24H LABS Laboratory Tests 2 6/29/21 13:10: Immature Granulocyte % (Auto) 0.6, Neutrophils (%) (Auto) 80.4H, Lymphocytes (%) (Auto) 11.2L, Monocytes (%) (Auto) 6.7, Eosinophils (%) (Auto) 0.6, Basophils (%) (Auto) 0.5, Neutrophils # (Auto) 7.1, Lymphocytes # (Auto) 1.0L, Monocytes # (Auto) 0.6, Eosinophils # (Auto) 0.1, Basophils # (Auto) 0.0, Nucleated Red Blood Cells % (auto) 0.0, Anion Gap 6L, Glomerular Filtration Rate > 60.0, Osmol ality 282, Calcium Level 9.2, Total Bilirubin 0.3, Direct Bilirubin < 0.1, Aspartate Amino Transf (AST/SGOT) 24, Alanine Aminotransferase (ALT/SGPT) 34, Alkaline Phosphatase 96, Total Creatine Kinase 151, Total Protein 7.5, Albumin 4.0, Albumin/Globulin Ratio 1.1L, Thyroid Stimulating Hormone (TSH) 1.030, Human Chorionic Gonadotropin, Qual NEGATIVE, Salicylates Level < 1.7L, Urine Opiates Screen NEGATIVE, Urine Methadone Screen NEGATIVE, Acetaminophen Level < 2.0L, Urine Barbiturates Screen NEGATIVE, Urine Phencyclidine Screen NEGATIVE, Urine Amphetamines Screen NEGATIVE, Urine Benzodiazepines Screen NEGATIVE, Urine Cocaine Metabolite Screen NEGATIVE, Urine Cannabinoids Screen NEGATIVE, Ethyl Alcohol Level < 0.003, Coronavirus (COVID-19)(PCR) NEGATIVE, Influenza Type A (RT-PCR) NEGATIVE, Influenza Type B (RT-PCR) NEGATIVE, Respiratory Syncytial Virus (PCR) NEGATIVE 12/19/20 13:34: Bedside Glucose (Misc Panel) 126H 12/19/20 15:48: 12/20/20 05:12: Nucleated Red Blood Cells % (auto) 0.0, Anion Gap 5L, Glomerular Filtration Rate > 60.0, Calcium Level 8.4L CBC/BMP Laboratory Tests 12/19/20 13:10 12/20/20 05:12 JIM LUNA DO Dec 20, 2020 10:27
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
--- NOTE | 2020-12-21 17:50 | ECGEPIP ---
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
== END 2020-12-20 18:00 ==
LOC: M ED 12:43 → OBSVTOIN 12:44 → INTOOBSV 12:44 → M ED INP 12:44 → ENRESERV 16:14 → M PCU 18:26
PROVIDERS: ADMIT Internal Medicine; ATTEND Internal Medicine
DX: T44.7X2A Poisoning by beta-adrenoreceptor antagonists, intentional self-harm, initial encounter (principal); T43.592A Poisoning by other antipsychotics and neuroleptics, intentional self-harm, initial encounter; F32.9 Major depressive disorder, single episode, unspecified; F41.9 Anxiety disorder, unspecified; F25.9 Schizoaffective disorder, unspecified; F84.0 Autistic disorder; F42.9 Obsessive-compulsive disorder, unspecified; G47.00 Insomnia, unspecified; F79 Unspecified intellectual disabilities; F10.11 Alcohol abuse, in remission; Z79.899 Other long term (current) drug therapy; Z88.8 Allergy status to other drugs, medicaments and biological substances; Z88.0 Allergy status to penicillin

== ENCOUNTER 2020-12-20 15:17 | Inpatient (IN) | payer MEDICAID ==
[~2020-12-20] VITALS: Ht 157.5 cm; Wt 100.0 kg
[~2020-12-20 15:17] MED LIST changes: +OXCA600T8
[2020-12-20] MEDS ORDERED: MAALOX 30 ML SUSP *UDC PO PRN (15:40)
[2020-12-20] MEDS ORDERED: MOM 30ML SUSPENSION UDC PO PRN (15:40)
[2020-12-20] MEDS ORDERED: ACETAMINOPHEN TAB 650MG DOSE (2X325MG) PO PRN (15:40)
[2020-12-20] MEDS ORDERED: traZODone 50 MG TAB PO PRN (15:40)
[2020-12-20 18:16] VITALS: BP 130/62
[2020-12-20] MEDS: ARIPiprazole 15 MG TAB (AbiLIFY) PO SCH (21:46)
[2020-12-20] MEDS: BENZTROPINE 0.5 MG TAB PO SCH (21:46)
[2020-12-20] MEDS: RAMELTEON 8 MG TAB (ROZEREM) PO SCH (21:46)
[2020-12-20] MEDS: OXcarbazepine 300 MG TAB PO SCH (21:46)
[2020-12-20] MEDS: PRAZOSIN 1 MG CAP PO SCH (21:47)
[2020-12-21 06:24] VITALS: BP 112/57
[2020-12-21] MEDS: hydrOXYzine 25 MG TAB PO SCH (09:22)
[2020-12-21] MEDS: BENZTROPINE 0.5 MG TAB PO SCH ×2 (09:22→20:26)
[2020-12-21] MEDS: OXcarbazepine 300 MG TAB PO SCH ×2 (09:22→20:25)
[2020-12-21] MEDS: ARIPiprazole 15 MG TAB (AbiLIFY) PO SCH ×2 (09:22→20:25)
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
[2020-12-21 17:37] VITALS: BP 131/73
--- NOTE | 2020-12-21 17:53 | HPEPDOC ---
[facility] Medical History & Physical Date of Admission Dec 20, 2020 Date of Service: Dec 21, 2020 History and Physical CHIEF COMPLAINT: Suicidal Ideation HISTORY OF PRESENT ILLNESS: Ms. Watson is a 35 year old female with anxiety, depression, and autism spectrum disorder who is in the inpatient mental health u nit after suicidal attempt by overdose. Today, she denies any fever/chills, chest pain, dyspnea, abdominal pain, or dysuria. She is anxious knowing that her parents are trying to get her removed from their house. She is concerned about the swelling in the ankles. Recommending leg elevation and compression socks. PAST MEDICAL HISTORY: 1. Autism spectrum disorders/Asperger 2. Schizoaffective disorder 3. Alcohol abuse, now in remission since 10/26/2019 4. Depression 5. Anxiety 6. OCD PAST SURGICAL HISTORY: 1. [place] teeth removal SOCIAL HISTORY: Tobacco use: Denies ETOH: Sober Illicit drug use: Denies FAMILY HISTORY: Parents have no known medical problems ALLERGIES: Please see below. REVIEW OF SYSTEMS: CONSTITUTIONAL: Denies any fever or chills. ENT: Denies sore throat. RESPIRATORY: Denies shortness of breath. Denies cough. CARDIOVASCULAR: Denies chest pain. GASTROINTESTINAL: Denies abdominal pain. GENITOURINARY: Denies dysuria. CUTANEOUS: Denies rashes. MUSCULOSKELETAL: Denies muscle weakness. NEUROLOGICAL: Reports right arm tingling from sleeping on right side. PSYCHOLOGICAL: Reports anxiety. Reports depression. HOME MEDICATIONS: Please see below. PHYSICAL EXAMINATION: VITAL SIGNS: Temperature 96.8, pulse 92, respiratory rate 14, blood pressure 131/73, pulse oximetry 98% on room air. GENERAL: Comfortable, in no apparent distress. HEENT: Head normocephalic/atraumatic, EOMI, sclera clear. NECK: Supple. RESPIRATORY: Lungs clear to auscultation bilaterally, no rales, wheeze or rhonchi. CARDIOVASCULAR: Regular rate and rhythm. ABDOMEN: Soft, nontender, no guarding or rebound tenderness. Normal bowel sounds. MUSCLE SKELETAL: Muscle strength 5/5 in all extremities. NEUROLOGICAL: CN 3-12 grossly intact, no focal deficits noted. PSYCHOLOGICAL: Anxious LABORATORY DATA: See below. IMAGING: None MICROBIOLOGY: Please see below. ASSESSMENT and PLAN: 1. Suicide attempt Being managed in the patient mental health unit 2. Pedal edema Secondary to standing and ambulating Recommend leg elevation and compression stockings 3. Fungal infection Nystatin powder to be placed underneath the breasts bilaterally Thank you for consulting us. We will sign off at this time. If there is any further questions or concerns, please do not hesitate to reconsult us. Vital Signs Vital Signs Date Time Temp Pulse Resp B/P (MAP) Pulse Ox O2 Delivery O2 Flow Rate FiO2 12/21/20 17:37 96.8 92 14 131/73 (92) 12/21/20 06:24 98 Room Air Home Medications Scheduled Aripiprazole (Aripiprazole) 30 Mg Tablet, 15 MG PO BID Benztropine Mesylate (Benztropine Mesylate) 0.5 Mg Tablet, 0.5 MG PO BID Calcium Carbonate/Vitamin D3 (Calcium 600-Vit D3 800 Tablet) 1 Each Tablet, 1 TAB PO DAILY Hydroxyzine Pamoate (Hydroxyzine Pamoate) 25 Mg Capsule, 25 MG PO DAILY Multivitamin (Multivitamins) 1 Each Tablet, 1 TAB PO DAILY Oxcarbazepine (Trileptal) 600 Mg Tablet, 600 MG PO BID Prazosin Hcl (Prazosin HCl) 1 Mg Capsule, 1 MG PO QHS Scheduled PRN Acetaminophen (Acetaminophen) 500 Mg Tablet, 1,000 MG PO Q6H PRN for PAIN Melatonin (Melatonin) 3 Mg Tablet, 3 MG PO QHS PRN for INSOMNIA Trazodone HCl (Trazodone HCl) 50 Mg Tablet, 50 MG PO QHS PRN for SLEEP Allergies Coded Allergies: cariprazine (Verified Allergy, Intermediate, increased SI, 04/18/20) Penicillins (Verified Allergy, Mild, rash, 04/18/20) risperidone (Verified Allergy, Mild, RASH, 04/18/20) prednisone (Verified Adverse Reaction, Intermediate, anxiety, agitation, 04/18/20) quetiapine (Verified Adverse Reaction, Intermediate, OCULOGYRIC CRISIS, 04/18/20) brexpiprazole (Verified Adverse Reaction, Unknown, SUICIDAL, 08/22/20) A-FIB/CHADSVASC A-FIB History Current/History of A-Fib/PAF?: No JIM LUNA DO Dec 21, 2020 17:53
[2020-12-21] MEDS: PRAZOSIN 1 MG CAP PO SCH (20:25)
[2020-12-21] MEDS: NYSTATIN 100,000 UNITS/GM TOPICAL PWD 15 GM TOP SCH (20:26)
[2020-12-21] MEDS: RAMELTEON 8 MG TAB (ROZEREM) PO SCH (21:48)
[2020-12-22 06:28] VITALS: BP 142/78
[2020-12-22] MEDS: ARIPiprazole 15 MG TAB (AbiLIFY) PO SCH ×2 (09:53→21:43)
[2020-12-22] MEDS: OXcarbazepine 300 MG TAB PO SCH ×2 (09:53→21:44)
[2020-12-22] MEDS: NYSTATIN 100,000 UNITS/GM TOPICAL PWD 15 GM TOP SCH ×2 (09:53→21:44)
[2020-12-22] MEDS: LORazepam 1 MG TAB PO SCH ×3 (09:54→21:44)
[2020-12-22] MEDS: BENZTROPINE 0.5 MG TAB PO SCH ×2 (09:54→21:43)
[2020-12-22] MEDS: hydrOXYzine 25 MG TAB PO SCH (09:54)
--- NOTE | 2020-12-22 11:33 | MHIPNPDOC ---
[facility] Progress Note Progress Note DATE OF SERVICE: 12/22/20 The patient has cooperated with the medicine and hasn't shown any aggressive or agitated behavior. The patient is very anxious and reports feeling restless and somewhat fearful that he may not be able to return to her mother's house because of the verbal threats she made to her mother. She stated that she has no intent to harm anybody and has no history of violence, but the mother is very afraid of her threats and the behavior and doesn't want her back in the house. She is denying any command hallucination and denies any paranoia to her mother but stated that she was having trouble controlling her anger and also was annoyed by her mother's concern to her well-being. Patient claims that she cannot take a lot of atypical antipsychotic medicines including Seroquel, risperidone and Zyprexa due to metabolic side effect and only has been able to take Abilify. She is very pressured, anxious and restless, so we will give Ativan 1 mg 3 times a day for the next 3 days. HISTORY: . VITAL SIGNS: See below. NEW TEST RESULTS: . CURRENT MEDICATIONS: See below. MENTAL STATUS EXAMINATION: Patient is a 35-year old female, who is , moderately anxious but cooperative. Speech: Is , pressured and not spontaneous. Language skills are fair. Thought processes including: Preoccupied with her anxiety and fear. Thought content: Denies any command hallucination and denies any suicidal or homicidal thoughts. Abstract reasoning, and computation: poor. Description of associations: Relevant. Description of abnormal or psychotic thoughts: Denies any command hallucination and no gross paranoia. Judgment: poor. Insight: poor. Orientation: , Oriented. Recent and remote memory: Unimpaired. Attention span and concentration: fair. Language: . Fund of knowledge: . Mood: , Anxious, fearful. Affect: , Intense labile. DIAGNOSES: 1. . Schizoaffective disorder 2. . Personality disorder, mixed 3. . ASSESSMENT: Remains anxious, fearful, but denies any active suicidal thoughts MANAGEMENT PLAN: Stabilize with medicine and supportive therapy . TIME SPENT: 20 minutes. Vital Signs Vital Signs Date Time Temp Pulse Resp B/P (MAP) Pulse Ox O2 Delivery O2 Flow Rate FiO2 12/22/20 06:28 98.4 99 20 142/78 (99) 97 Room Air Current Medications Current Medications Medications (Trade) Dose Ordered Sig/Cory Route PRN Reason Start Time Stop Time Status Last Admin Dose Admin Acetaminophen (Tylenol Tab) 650 mg Q6HP PRN PO HEADACHE or MILD DISCOMFORT 12/20/20 15:40 Al Hydrox/Mg Hydrox/Simethicone (Mylanta) 30 ml Q4HP PRN PO HEARTBURN/INDIGESTION 12/20/20 15:40 Aripiprazole (AbiLIFY) 15 mg BID PO 12/20/20 21:00 12/22/20 09:53 Benztropine Mesylate (Cogentin) 0.5 mg BID PO 12/20/20 21:00 12/22/20 09:54 Hydroxyzine HCl (Atarax) 25 mg DAILY PO 12/21/20 09:00 12/22/20 09:54 Lorazepam (Ativan) 1 mg TID PO 12/22/20 09:00 12/25/20 08:17 12/22/20 09:54 Magnesium Hydroxide (Milk Of Magnesia) 30 ml DAILYPRN PRN PO CONSTIPATION 12/20/20 15:40 Nystatin (Mycostatin Powder, Nystop) Under breasts bilaterally BID TOP 12/21/20 21:00 12/22/20 09:53 Oxcarbazepine (Trileptal) 600 mg BID PO 12/20/20 21:00 12/22/20 09:53 Prazosin HCl (Minipress) 1 mg QHS PO 12/20/20 21:00 12/21/20 20:25 Ramelteon (Rozerem) 8 mg QHS PO 12/20/20 21:00 12/21/20 21:48 Trazodone HCl (Desyrel) 50 mg QHSP PRN PO INSOMNIA 12/20/20 15:40 UNV Allergies Coded Allergies: cariprazine (Verified Allergy, Intermediate, increased SI, 04/18/20) Penicillins (Verified Allergy, Mild, rash, 04/18/20) risperidone (Verified Allergy, Mild, RASH, 04/18/20) prednisone (Verified Adverse Reaction, Intermediate, anxiety, agitation, 04/18/20) quetiapine (Verified Adverse Reaction, Intermediate, OCULOGYRIC CRISIS, 04/18/20) brexpiprazole (Verified Adverse Reaction, Unknown, SUICIDAL, 08/22/20) NADIRA HARVEY M.D. Dec 22, 2020 11:33
[2020-12-22 18:25] VITALS: BP 115/56
[2020-12-22] MEDS: RAMELTEON 8 MG TAB (ROZEREM) PO SCH (21:43)
[2020-12-22] MEDS: PRAZOSIN 1 MG CAP PO SCH (21:44)
[2020-12-23 06:00] VITALS: BP 110/56
[2020-12-23] MEDS: OXcarbazepine 300 MG TAB PO SCH ×2 (08:59→22:10)
[2020-12-23] MEDS: ARIPiprazole 15 MG TAB (AbiLIFY) PO SCH ×2 (08:59→22:10)
[2020-12-23] MEDS: NYSTATIN 100,000 UNITS/GM TOPICAL PWD 15 GM TOP SCH ×2 (09:00→22:10)
[2020-12-23] MEDS: LORazepam 1 MG TAB PO SCH ×3 (09:00→22:09)
[2020-12-23] MEDS: hydrOXYzine 25 MG TAB PO SCH (09:00)
[2020-12-23] MEDS: BENZTROPINE 0.5 MG TAB PO SCH ×2 (09:00→22:10)
--- NOTE | 2020-12-23 15:28 | MHIPNPDOC ---
[facility] Progress Note Progress Note DATE OF SERVICE: 12/23/20 HISTORY: As per : "The patient has cooperated with the medicine and hasn't shown any aggressive or agitated behavior. The patient is very anxious and repo rts feeling restless and somewhat fearful that he may not be able to return to her mother's house because of the verbal threats she made to her mother. She stated that she has no intent to harm anybody and has no history of violence, but the mother is very afraid of her threats and the behavior and doesn't want her back in the house. She is denying any command hallucination and denies any paranoia to her mother but stated that she was having trouble controlling her anger and also was annoyed by her mother's concern to her well-being. Patient claims that she cannot take a lot of atypical antipsychotic medicines including Seroquel, risperidone and Zyprexa due to metabolic side effect and only has been able to take Abilify. She is very pressured, anxious and restless, so we will give Ativan 1 mg 3 times a day for the next 3 days" VITAL SIGNS: See below. NEW TEST RESULTS: See below CURRENT MEDICATIONS: See below. MENTAL STATUS EXAMINATION: MENTAL STATUS EXAMINATION: Patient is a 35 year old female, who is alert, cooperative, dressed in hospital clothes, social with peers and staff Speech: Is stuttering, normal rate, tone and volume, spontaneous. Language skills are intact Thought content: she denies suicidal or homicidal ideation, she still reports some anxious thoughts regarding her family life Thought processes including: [place], has difficulty processing certain concepts, she tends to be repetitive Description of associations: fair Description of abnormal or psychotic thoughts: Reports her paranoid thoughts are decreased, denies SI/HI at this time. She denies TAV hallucinations at this time Judgment: Poor Insight: Limited Orientation: to place, person and situation Recent and remote memory: fair Attention span and concentration: mildly improved Language: no gross abnormalities observed Fund of knowledge: below average, she has an intellectual disability Mood: euthymic. Affect: constricted. DIAGNOSES: Autism Spectrum Disorder Obsessive Compulsive Disorder Unspecified Depressive disorder Unspecified Anxiety Disorder History of Alcohol Use Disorder Intellectual Disability ASSESSMENT: Grace seems calm today, she was interacting with [place] [facility] [place] talk to her. Her speech is less rapid, less pressured, she seems to process her thoughts more effectively. This is her third day on Ativan and she is having a good response to it. will continue to monitor her for safety, medication response. MANAGEMENT PLAN: As above TIME SPENT: 15 minutes. Vital Signs Vital Signs Date Time Temp Pulse Resp B/P (MAP) Pulse Ox O2 Delivery O2 Flow Rate FiO2 12/23/20 06:00 97.9 77 20 110/56 (74) 99 Room Air Current Medications Current Medications Medications (Trade) Dose Ordered Sig/Cory Route PRN Reason Start Time Stop Time Status Last Admin Dose Admin Acetaminophen (Tylenol Tab) 650 mg Q6HP PRN PO HEADACHE or MILD DISCOMFORT 12/20/20 15:40 Al Hydrox/Mg Hydrox/Simethicone (Mylanta) 30 ml Q4HP PRN PO HEARTBURN/INDIGESTION 12/20/20 15:40 Aripiprazole (AbiLIFY) 15 mg BID PO 12/20/20 21:00 12/23/20 08:59 Benztropine Mesylate (Cogentin) 0.5 mg BID PO 12/20/20 21:00 12/23/20 09:00 Hydroxyzine HCl (Atarax) 25 mg DAILY PO 12/21/20 09:00 12/23/20 09:00 Lorazepam (Ativan) 1 mg TID PO 12/22/20 09:00 12/25/20 08:17 12/23/20 09:00 Magnesium Hydroxide (Milk Of Magnesia) 30 ml DAILYPRN PRN PO CONSTIPATION 12/20/20 15:40 Nystatin (Mycostatin Powder, Nystop) Under breasts bilaterally BID TOP 12/21/20 21:00 12/22/20 21:44 Oxcarbazepine (Trileptal) 600 mg BID PO 12/20/20 21:00 12/23/20 08:59 Prazosin HCl (Minipress) 1 mg QHS PO 12/20/20 21:00 12/22/20 21:44 Ramelteon (Rozerem) 8 mg QHS PO 12/20/20 21:00 12/22/20 21:43 Trazodone HCl (Desyrel) 50 mg QHSP PRN PO INSOMNIA 12/20/20 15:40 UNV Allergies Coded Allergies: cariprazine (Verified Allergy, Intermediate, increased SI, 04/18/20) Penicillins (Verified Allergy, Mild, rash, 04/18/20) risperidone (Verified Allergy, Mild, RASH, 04/18/20) prednisone (Verified Adverse Reaction, Intermediate, anxiety, agitation, 04/18/20) quetiapine (Verified Adverse Reaction, Intermediate, OCULOGYRIC CRISIS, 04/18/20) brexpiprazole (Verified Adverse Reaction, Unknown, SUICIDAL, 08/22/20) PRIMO GOLDSTEIN MD Dec 23, 2020 13:43
[2020-12-23 16:56] VITALS: BP 132/78
[2020-12-23] MEDS: RAMELTEON 8 MG TAB (ROZEREM) PO SCH (22:10)
[2020-12-23] MEDS: PRAZOSIN 1 MG CAP PO SCH (22:14)
[2020-12-24 07:03] VITALS: BP 135/59
[2020-12-24] MEDS: NYSTATIN 100,000 UNITS/GM TOPICAL PWD 15 GM TOP SCH ×2 (09:00→21:46)
[2020-12-24] MEDS: LORazepam 1 MG TAB PO SCH (09:12)
[2020-12-24] MEDS: BENZTROPINE 0.5 MG TAB PO SCH ×2 (09:13→20:15)
[2020-12-24] MEDS: OXcarbazepine 300 MG TAB PO SCH ×2 (09:13→20:14)
[2020-12-24] MEDS: hydrOXYzine 25 MG TAB PO SCH (09:13)
[2020-12-24] MEDS: ARIPiprazole 15 MG TAB (AbiLIFY) PO SCH ×2 (09:13→20:16)
--- NOTE | 2020-12-24 14:52 | MHIPNPDOC ---
[facility] Progress Note Progress Note DATE OF SERVICE: 12/24/20 HISTORY: As per : "The patient has cooperated with the medicine and hasn't shown any aggressive or agitated behavior. The patient is very anxious and repo rts feeling restless and somewhat fearful that he may not be able to return to her mother's house because of the verbal threats she made to her mother. She stated that she has no intent to harm anybody and has no history of violence, but the mother is very afraid of her threats and the behavior and doesn't want her back in the house. She is denying any command hallucination and denies any paranoia to her mother but stated that she was having trouble controlling her anger and also was annoyed by her mother's concern to her well-being. Patient claims that she cannot take a lot of atypical antipsychotic medicines including Seroquel, risperidone and Zyprexa due to metabolic side effect and only has been able to take Abilify. She is very pressured, anxious and restless, so we will give Ativan 1 mg 3 times a day for the next 3 days" VITAL SIGNS: See below. NEW TEST RESULTS: See below CURRENT MEDICATIONS: See below. MENTAL STATUS EXAMINATION: MENTAL STATUS EXAMINATION: Patient is a 35 year old female, who is alert, cooperative, dressed in personal clothes, social with peers and staff Speech: Is spontaneous and fluent, normal rate, tone and volume, spontaneous. Language skills are intact Thought content: she says everything in her mind is "dull", but she denies SI/HI Thought processes including: [place] Description of associations: fair Description of abnormal or psychotic thoughts: Denies paranoid thoughts, reports mild depressive thoughts, denies SI/HI at this time. She denies TAV hallucinations at this time Judgment: Poor Insight: Limited Orientation: to place, person and situation Recent and remote memory: fair Attention span and concentration: mildly improved Language: no gross abnormalities observed Fund of knowledge: below average, she has an intellectual disability Mood: euthymic. Affect: constricted. DIAGNOSES: Autism Spectrum Disorder Obsessive Compulsive Disorder Unspecified Depressive disorder Unspecified Anxiety Disorder History of Alcohol Use Disorder Intellectual Disability ASSESSMENT: Grace is feeling better, but she says she feles too sleepy. I will decrease her Ativan dose to 1 mg PO BID but Dr. KO will re assess her tomorrow and he will decide if she continues on 2 mgs or 3 mgs PO daily MANAGEMENT PLAN: As above TIME SPENT: 15 minutes. Vital Signs Vital Signs Date Time Temp Pulse Resp B/P (MAP) Pulse Ox O2 Delivery O2 Flow Rate FiO2 12/24/20 07:03 98.1 94 20 135/59 (84) 98 Room Air Current Medications Current Medications Medications (Trade) Dose Ordered Sig/Cory Route PRN Reason Start Time Stop Time Status Last Admin Dose Admin Acetaminophen (Tylenol Tab) 650 mg Q6HP PRN PO HEADACHE or MILD DISCOMFORT 12/20/20 15:40 Al Hydrox/Mg Hydrox/Simethicone (Mylanta) 30 ml Q4HP PRN PO HEARTBURN/INDIGESTION 12/20/20 15:40 Aripiprazole (AbiLIFY) 15 mg BID PO 12/20/20 21:00 12/24/20 09:13 Benztropine Mesylate (Cogentin) 0.5 mg BID PO 12/20/20 21:00 12/24/20 09:13 Hydroxyzine HCl (Atarax) 25 mg DAILY PO 12/21/20 09:00 12/24/20 09:13 Lorazepam (Ativan) 1 mg TID PO 12/22/20 09:00 12/25/20 08:17 12/24/20 09:12 Magnesium Hydroxide (Milk Of Magnesia) 30 ml DAILYPRN PRN PO CONSTIPATION 12/20/20 15:40 Nystatin (Mycostatin Powder, Nystop) Under breasts bilaterally BID TOP 12/21/20 21:00 12/22/20 21:44 Oxcarbazepine (Trileptal) 600 mg BID PO 12/20/20 21:00 12/24/20 09:13 Prazosin HCl (Minipress) 1 mg QHS PO 12/20/20 21:00 12/23/20 22:14 Ramelteon (Rozerem) 8 mg QHS PO 12/20/20 21:00 12/23/20 22:10 Trazodone HCl (Desyrel) 50 mg QHSP PRN PO INSOMNIA 12/20/20 15:40 UNV Allergies Coded Allergies: cariprazine (Verified Allergy, Intermediate, increased SI, 04/18/20) Penicillins (Verified Allergy, Mild, rash, 04/18/20) risperidone (Verified Allergy, Mild, RASH, 04/18/20) prednisone (Verified Adverse Reaction, Intermediate, anxiety, agitation, 04/18/20) quetiapine (Verified Adverse Reaction, Intermediate, OCULOGYRIC CRISIS, 04/18/20) brexpiprazole (Verified Adverse Reaction, Unknown, SUICIDAL, 08/22/20) PRIMO GOLDSTEIN MD Dec 24, 2020 14:52
[2020-12-24] MEDS: PRAZOSIN 1 MG CAP PO SCH (20:15)
[2020-12-24] MEDS ORDERED: LORazepam 1 MG TAB PO SCH (21:00)
[2020-12-24] MEDS: RAMELTEON 8 MG TAB (ROZEREM) PO SCH (21:46)
--- NOTE | 2020-12-25 08:57 | MHIPNPDOC ---
[facility] Progress Note Progress Note DATE OF SERVICE: 12/25/20 Patient has been cooperating with the treatment, including the medications and has been maintaining good control. She stated that she does not get any suicidal thoughts anymore, but feels that it would be best if she can move into a residential place. She knows that she may have to move back with her parents temporarily until the residential places ready, but doesn't feel she can stay with the parents in a long-term basis. She is not showing any gross paranoia and denies any homicidal or aggressive thoughts to her parents, but admits to her ongoing difficulty with her mood instability and dealing with the people. She is willing to consider medication changes, but at the same time claims that she has been tried on numerous different medications but couldn't tolerate most of them. She has been on most of antidepressant medications, but never succeeded with any of them and Abilify is the only one that she could tolerate out of any atypical antipsychotic medications. HISTORY: . VITAL SIGNS: See below. NEW TEST RESULTS: . CURRENT MEDICATIONS: See below. MENTAL STATUS EXAMINATION: Patient is a 35-year old female, who is , cooperative and in good control. Speech: Is relevant, rational, but not spontaneous. Language skills are fair. Thought processes including: , Coherent. Thought content: Denies any suicidal or homicidal thoughts. Abstract reasoning, and computation: , Poor. Description of associations: , Not spontaneous. Description of abnormal or psychotic thoughts: Moped gross delusion and no hallucinations. Judgment: , Poor. Insight: poor. Orientation: , Oriented. Recent and remote memory: No gross impairment . Attention span and concentration: poor. Language: . Fund of knowledge: . Mood: Moderately anxious and preoccupied. Affect: Blunted but appropriate. DIAGNOSES: 1. . Autism spectrum disorder 2. . Personality disorder, mixed 3. . Intellectual limitation ASSESSMENT: Maintaining control and cooperating with the medicine and denies any acute lethality issues MANAGEMENT PLAN: . Decrease her Ativan to half milligram 3 times a day. Continue with Abilify and Trileptal and consider residential placement TIME SPENT: 20 minutes. Vital Signs Vital Signs Date Time Temp Pulse Resp B/P (MAP) Pulse Ox O2 Delivery O2 Flow Rate FiO2 12/24/20 07:03 98.1 94 20 135/59 (84) 98 Room Air Current Medications Current Medications Medications (Trade) Dose Ordered Sig/Cory Route PRN Reason Start Time Stop Time Status Last Admin Dose Admin Acetaminophen (Tylenol Tab) 650 mg Q6HP PRN PO HEADACHE or MILD DISCOMFORT 12/20/20 15:40 Al Hydrox/Mg Hydrox/Simethicone (Mylanta) 30 ml Q4HP PRN PO HEARTBURN/INDIGESTION 12/20/20 15:40 Aripiprazole (AbiLIFY) 15 mg BID PO 12/20/20 21:00 12/24/20 20:16 Benztropine Mesylate (Cogentin) 0.5 mg BID PO 12/20/20 21:00 12/24/20 20:15 Hydroxyzine HCl (Atarax) 25 mg DAILY PO 12/21/20 09:00 12/24/20 09:13 Lorazepam (Ativan) 1 mg BID PO 12/24/20 21:00 12/25/20 08:45 DC 12/24/20 20:14 Lorazepam (Ativan) 1 mg TID PO 12/22/20 09:00 12/24/20 14:47 DC 12/24/20 09:12 Magnesium Hydroxide (Milk Of Magnesia) 30 ml DAILYPRN PRN PO CONSTIPATION 12/20/20 15:40 Nystatin (Mycostatin Powder, Nystop) Under breasts bilaterally BID TOP 12/21/20 21:00 12/24/20 21:46 Oxcarbazepine (Trileptal) 600 mg BID PO 12/20/20 21:00 12/24/20 20:14 Prazosin HCl (Minipress) 1 mg QHS PO 12/20/20 21:00 12/24/20 20:15 Ramelteon (Rozerem) 8 mg QHS PO 12/20/20 21:00 12/24/20 21:46 Trazodone HCl (Desyrel) 50 mg QHSP PRN PO INSOMNIA 12/20/20 15:40 UNV Allergies Coded Allergies: cariprazine (Verified Allergy, Intermediate, increased SI, 04/18/20) Penicillins (Verified Allergy, Mild, rash, 04/18/20) risperidone (Verified Allergy, Mild, RASH, 04/18/20) prednisone (Verified Adverse Reaction, Intermediate, anxiety, agitation, 04/18/20) quetiapine (Verified Adverse Reaction, Intermediate, OCULOGYRIC CRISIS, 04/18/20) brexpiprazole (Verified Adverse Reaction, Unknown, SUICIDAL, 08/22/20) NADIRA HARVEY M.D. Dec 25, 2020 08:57
[2020-12-25] MEDS: hydrOXYzine 25 MG TAB PO SCH (09:38)
[2020-12-25] MEDS: LORazepam 0.5 MG TAB PO SCH ×3 (09:38→21:30)
[2020-12-25] MEDS: OXcarbazepine 300 MG TAB PO SCH ×2 (09:38→21:30)
[2020-12-25] MEDS: ARIPiprazole 15 MG TAB (AbiLIFY) PO SCH ×2 (09:38→21:29)
[2020-12-25] MEDS: BENZTROPINE 0.5 MG TAB PO SCH ×2 (09:38→21:29)
[2020-12-25] MEDS: NYSTATIN 100,000 UNITS/GM TOPICAL PWD 15 GM TOP SCH ×2 (09:41→21:31)
[2020-12-25] MEDS: RAMELTEON 8 MG TAB (ROZEREM) PO SCH (21:30)
[2020-12-25] MEDS: PRAZOSIN 1 MG CAP PO SCH (21:30)
[2020-12-26 06:52] VITALS: BP 109/58
[2020-12-26] MEDS: OXcarbazepine 300 MG TAB PO SCH ×2 (08:58→21:02)
[2020-12-26] MEDS: BENZTROPINE 0.5 MG TAB PO SCH ×2 (08:59→21:03)
[2020-12-26] MEDS: ARIPiprazole 15 MG TAB (AbiLIFY) PO SCH ×2 (08:59→21:03)
[2020-12-26] MEDS: hydrOXYzine 25 MG TAB PO SCH (08:59)
[2020-12-26] MEDS: NYSTATIN 100,000 UNITS/GM TOPICAL PWD 15 GM TOP SCH ×2 (08:59→21:02)
[2020-12-26] MEDS: LORazepam 0.5 MG TAB PO SCH ×3 (08:59→21:03)
--- NOTE | 2020-12-26 09:33 | MHIPNPDOC ---
[facility] Progress Note Progress Note DATE OF SERVICE: 12/26/20 The patient is cooperating with the medicine and has no complaint of side effect and has been maintaining good control. She does not feel as anxious with the cu rrent Ativan half milligram 3 times a day and does not feel so sedated and feels okay. She stated that she really wants to go into a community residence and only wants to go back to her parent's home while waiting for the community residence. She is not as intense and not as labile and reports feeling more stable and is willing to cooperate with the discharge plan. HISTORY: . VITAL SIGNS: See below. NEW TEST RESULTS: . CURRENT MEDICATIONS: See below. MENTAL STATUS EXAMINATION: Patient is a 35 -year old female, who is in good control and in no acute distress. Speech: Is rational, coherent. Language skills are fair. Thought processes including: Relevant. Thought content: No delusional ideas and no paranoia and denies any suicidal or homicidal thoughts. Abstract reasoning, and computation: poor. Description of associations: Fairly coherent. Description of abnormal or psychotic thoughts: No hallucination or paranoia . Judgment: fair. Insight: fair. . Orientation: , Oriented. Recent and remote memory: No gross impairment. Attention span and concentration: poor. Language: . Fund of knowledge: . Mood: , Mildly anxious. Affect: Blunted but appropriate. DIAGNOSES: 1. . Autism spectrum disorder 2. . Personality disorder, mixed 3. . Intellectual limitations ASSESSMENT:Behavior is in much better control and not as anxious or attention seeking MANAGEMENT PLAN: Will consider referring to a community residence. TIME SPENT: 20 minutes. Vital Signs Vital Signs Date Time Temp Pulse Resp B/P (MAP) Pulse Ox O2 Delivery O2 Flow Rate FiO2 12/26/20 06:52 98.0 91 16 109/58 (75) 98 Room Air Current Medications Current Medications Medications (Trade) Dose Ordered Sig/Cory Route PRN Reason Start Time Stop Time Status Last Admin Dose Admin Acetaminophen (Tylenol Tab) 650 mg Q6HP PRN PO HEADACHE or MILD DISCOMFORT 12/20/20 15:40 Al Hydrox/Mg Hydrox/Simethicone (Mylanta) 30 ml Q4HP PRN PO HEARTBURN/INDIGESTION 12/20/20 15:40 Aripiprazole (AbiLIFY) 15 mg BID PO 12/20/20 21:00 12/26/20 08:59 Benztropine Mesylate (Cogentin) 0.5 mg BID PO 12/20/20 21:00 12/26/20 08:59 Hydroxyzine HCl (Atarax) 25 mg DAILY PO 12/21/20 09:00 12/26/20 08:59 Lorazepam (Ativan) 0.5 mg TID PO 12/25/20 09:00 12/26/20 08:59 Lorazepam (Ativan) 1 mg BID PO 12/24/20 21:00 12/25/20 08:45 DC 12/24/20 20:14 Lorazepam (Ativan) 1 mg TID PO 12/22/20 09:00 12/24/20 14:47 DC 12/24/20 09:12 Magnesium Hydroxide (Milk Of Magnesia) 30 ml DAILYPRN PRN PO CONSTIPATION 12/20/20 15:40 Nystatin (Mycostatin Powder, Nystop) Under breasts bilaterally BID TOP 12/21/20 21:00 12/26/20 08:59 Oxcarbazepine (Trileptal) 600 mg BID PO 12/20/20 21:00 12/26/20 08:58 Prazosin HCl (Minipress) 1 mg QHS PO 12/20/20 21:00 12/25/20 21:30 Ramelteon (Rozerem) 8 mg QHS PO 12/20/20 21:00 12/25/20 21:30 Trazodone HCl (Desyrel) 50 mg QHSP PRN PO INSOMNIA 12/20/20 15:40 UNV Allergies Coded Allergies: cariprazine (Verified Allergy, Intermediate, increased SI, 04/18/20) Penicillins (Verified Allergy, Mild, rash, 04/18/20) risperidone (Verified Allergy, Mild, RASH, 04/18/20) prednisone (Verified Adverse Reaction, Intermediate, anxiety, agitation, 04/18/20) quetiapine (Verified Adverse Reaction, Intermediate, OCULOGYRIC CRISIS, 04/18/20) brexpiprazole (Verified Adverse Reaction, Unknown, SUICIDAL, 08/22/20) NADIRA HARVEY M.D. Dec 26, 2020 09:33
[2020-12-26 18:32] VITALS: BP 165/90
[2020-12-26] MEDS: RAMELTEON 8 MG TAB (ROZEREM) PO SCH (21:03)
[2020-12-26] MEDS: PRAZOSIN 1 MG CAP PO SCH (21:05)
[2020-12-27 06:25] VITALS: BP 130/71
[2020-12-27] MEDS: LORazepam 0.5 MG TAB PO SCH ×3 (10:06→21:42)
[2020-12-27] MEDS: BENZTROPINE 0.5 MG TAB PO SCH ×2 (10:06→21:43)
[2020-12-27] MEDS: OXcarbazepine 300 MG TAB PO SCH ×2 (10:06→21:43)
[2020-12-27] MEDS: hydrOXYzine 25 MG TAB PO SCH (10:06)
[2020-12-27] MEDS: ARIPiprazole 15 MG TAB (AbiLIFY) PO SCH ×2 (10:06→21:43)
[2020-12-27] MEDS: NYSTATIN 100,000 UNITS/GM TOPICAL PWD 15 GM TOP SCH ×2 (10:07→21:00)
[2020-12-27 19:19] VITALS: BP 162/71
[2020-12-27] MEDS: RAMELTEON 8 MG TAB (ROZEREM) PO SCH (21:42)
[2020-12-27] MEDS: PRAZOSIN 1 MG CAP PO SCH (21:45)
[2020-12-28 06:47] VITALS: BP 128/69
[2020-12-28] MEDS: NYSTATIN 100,000 UNITS/GM TOPICAL PWD 15 GM TOP SCH ×2 (09:00→20:50)
[2020-12-28] MEDS: ARIPiprazole 15 MG TAB (AbiLIFY) PO SCH ×2 (09:34→20:49)
[2020-12-28] MEDS: LORazepam 0.5 MG TAB PO SCH ×3 (09:34→20:49)
[2020-12-28] MEDS: BENZTROPINE 0.5 MG TAB PO SCH ×2 (09:34→20:49)
[2020-12-28] MEDS: hydrOXYzine 25 MG TAB PO SCH (09:34)
[2020-12-28] MEDS: OXcarbazepine 300 MG TAB PO SCH ×2 (09:34→20:49)
--- NOTE | 2020-12-28 10:23 | MHIPNPDOC ---
[facility] Progress Note Progress Note DATE OF SERVICE: 12/28/20 The patient understands that she have to accept residential placement and is willing to cooperate with the referral. She is however hopeful that her parents may change her mind and be able to return home even for a temporary basis. She denies any active suicidal or homicidal thoughts and denies any intent of harming her parents and denies that she was ever physically violent. She is very childish at times tearful and feeling lost and depressed but not showing any gross paranoid symptoms and denies any hallucination. There is no history of manic episode and I doubt whether she was ever grossly psychotic. She is clearly in need of the supportive supervised living we will pursue the residential placement. HISTORY:. VITAL SIGNS: See below. NEW TEST RESULTS:. CURRENT MEDICATIONS: See below. MENTAL STATUS EXAMINATION: Patient is a 35-year old female, who is tearful and anxious. Speech: Is relevant but not very productive or spontaneous. Language skills are fair. Thought processes including: [Relevant and coherent. Thought content: Preoccupied with the fear of being alone. Abstract reasoning, and computation: Poor. Description of associations: Relevant. Description of abnormal or psychotic thoughts: No gross delusion or hallucinations. Judgment: Poor. Insight:. poor. Orientation: Oriented. Recent and remote memory: No gross impairment. Attention span and concentration: [Poor. Language:. Fund of knowledge:. Mood: Tearful and anxious. Affect: Appropriate little labile. DIAGNOSES: 1.. Autism spectrum disorder 2.. Personality disorder mixed 3.. Intellectual limitations ASSESSMENT: More acting out behavior and no gross psychotic symptoms but remains very regressed and labile MANAGEMENT PLAN: Continue with the Jet referred to a residential placement. TIME SPENT: 20 minutes. Vital Signs Vital Signs Date Time Temp Pulse Resp B/P (MAP) Pulse Ox O2 Delivery O2 Flow Rate FiO2 12/28/20 06:47 97.8 97 16 128/69 (88) 96 Room Air Current Medications Current Medications Medications (Trade) Dose Ordered Sig/Cory Route PRN Reason Start Time Stop Time Status Last Admin Dose Admin Acetaminophen (Tylenol Tab) 650 mg Q6HP PRN PO HEADACHE or MILD DISCOMFORT 12/20/20 15:40 Al Hydrox/Mg Hydrox/Simethicone (Mylanta) 30 ml Q4HP PRN PO HEARTBURN/INDIGESTION 12/20/20 15:40 Aripiprazole (AbiLIFY) 15 mg BID PO 12/20/20 21:00 12/28/20 09:34 Benztropine Mesylate (Cogentin) 0.5 mg BID PO 12/20/20 21:00 12/28/20 09:34 Hydroxyzine HCl (Atarax) 25 mg DAILY PO 12/21/20 09:00 12/28/20 09:34 Lorazepam (Ativan) 0.5 mg TID PO 12/25/20 09:00 12/28/20 09:34 Lorazepam (Ativan) 1 mg BID PO 12/24/20 21:00 12/25/20 08:45 DC 12/24/20 20:14 Lorazepam (Ativan) 1 mg TID PO 12/22/20 09:00 12/24/20 14:47 DC 12/24/20 09:12 Magnesium Hydroxide (Milk Of Magnesia) 30 ml DAILYPRN PRN PO CONSTIPATION 12/20/20 15:40 Nystatin (Mycostatin Powder, Nystop) Under breasts bilaterally BID TOP 12/21/20 21:00 12/27/20 10:07 Oxcarbazepine (Trileptal) 600 mg BID PO 12/20/20 21:00 12/28/20 09:34 Prazosin HCl (Minipress) 1 mg QHS PO 12/20/20 21:00 12/27/20 21:45 Ramelteon (Rozerem) 8 mg QHS PO 12/20/20 21:00 12/27/20 21:42 Trazodone HCl (Desyrel) 50 mg QHSP PRN PO INSOMNIA 12/20/20 15:40 UNV Allergies Coded Allergies: cariprazine (Verified Allergy, Intermediate, increased SI, 04/18/20) Penicillins (Verified Allergy, Mild, rash, 04/18/20) risperidone (Verified Allergy, Mild, RASH, 04/18/20) prednisone (Verified Adverse Reaction, Intermediate, anxiety, agitation, 04/18/20) quetiapine (Verified Adverse Reaction, Intermediate, OCULOGYRIC CRISIS, 04/18/20) brexpiprazole (Verified Adverse Reaction, Unknown, SUICIDAL, 08/22/20) NADIRA HARVEY M.D. Dec 28, 2020 10:23
[2020-12-28 17:20] VITALS: BP 148/67
[2020-12-28] MEDS: PRAZOSIN 1 MG CAP PO SCH (20:50)
[2020-12-28] MEDS: RAMELTEON 8 MG TAB (ROZEREM) PO SCH (21:43)
[2020-12-29 06:00] VITALS: BP 124/64
[2020-12-29] MEDS: NYSTATIN 100,000 UNITS/GM TOPICAL PWD 15 GM TOP SCH ×2 (09:00→20:38)
[2020-12-29] MEDS: BENZTROPINE 0.5 MG TAB PO SCH ×2 (09:09→20:42)
[2020-12-29] MEDS: ARIPiprazole 15 MG TAB (AbiLIFY) PO SCH ×2 (09:09→20:42)
[2020-12-29] MEDS: LORazepam 0.5 MG TAB PO SCH ×3 (09:09→20:42)
[2020-12-29] MEDS: hydrOXYzine 25 MG TAB PO SCH (09:10)
[2020-12-29] MEDS: OXcarbazepine 300 MG TAB PO SCH ×2 (09:10→20:42)
--- NOTE | 2020-12-29 09:10 | MHIPNPDOC ---
[facility] Progress Note Progress Note DATE OF SERVICE: 12/29/20 The patient is keep asking same questions about possible supportive community residence. Her behavior is in control and has not had any aggressive agitated or self mutilating behavior and denies any suicidal thoughts plan or intent. Patient however has very little capacity to appreciate the process of community residence referral and seems to be very impatient and demanding. She is still hoping to go back to her parents home while waiting for the community residence but the parents are unwilling due to her previous threatening behavior. I do not see any target symptoms of acute psychosis or severe depression and she is reporting adverse reaction to most of psychotropic medications. HISTORY:. VITAL SIGNS: See below. NEW TEST RESULTS:. CURRENT MEDICATIONS: See below. MENTAL STATUS EXAMINATION: Patient is a 35-year old female, who is in no acute distress. Speech: Is relevant but repetitive and simplistic. Language skills are poor. Thought processes including: Not productive. Thought content: No gross paranoia. Abstract reasoning, and computation: Poor. Description of associations: Relevant. Description of abnormal or psychotic thoughts: Denies any. Judgment: Poor. Insight: Poor. Orientation: Appears oriented. Recent and remote memory: No gross impairment. Attention span and concentration: Poor. Language:. Fund of knowledge:. Mood: Moderately anxious. Affect: Preoccupied labile. DIAGNOSES: 1.. Autism spectrum disorder 2.. Intellectual limitations 3.. ASSESSMENT: No visual gear changer PLAN: Referring to community residence. TIME SPENT: 15 minutes. Vital Signs Vital Signs Date Time Temp Pulse Resp B/P (MAP) Pulse Ox O2 Delivery O2 Flow Rate FiO2 12/29/20 06:00 97.9 88 20 124/64 (84) 96 12/28/20 06:47 Room Air Current Medications Current Medications Medications (Trade) Dose Ordered Sig/Cory Route PRN Reason Start Time Stop Time Status Last Admin Dose Admin Acetaminophen (Tylenol Tab) 650 mg Q6HP PRN PO HEADACHE or MILD DISCOMFORT 12/20/20 15:40 Al Hydrox/Mg Hydrox/Simethicone (Mylanta) 30 ml Q4HP PRN PO HEARTBURN/INDIGESTION 12/20/20 15:40 Aripiprazole (AbiLIFY) 15 mg BID PO 12/20/20 21:00 12/28/20 20:49 Benztropine Mesylate (Cogentin) 0.5 mg BID PO 12/20/20 21:00 12/28/20 20:49 Hydroxyzine HCl (Atarax) 25 mg DAILY PO 12/21/20 09:00 12/28/20 09:34 Lorazepam (Ativan) 0.5 mg TID PO 12/25/20 09:00 12/28/20 20:49 Lorazepam (Ativan) 1 mg BID PO 12/24/20 21:00 12/25/20 08:45 DC 12/24/20 20:14 Lorazepam (Ativan) 1 mg TID PO 12/22/20 09:00 12/24/20 14:47 DC 12/24/20 09:12 Magnesium Hydroxide (Milk Of Magnesia) 30 ml DAILYPRN PRN PO CONSTIPATION 12/20/20 15:40 Nystatin (Mycostatin Powder, Nystop) Under breasts bilaterally BID TOP 12/21/20 21:00 12/27/20 10:07 Oxcarbazepine (Trileptal) 600 mg BID PO 12/20/20 21:00 12/28/20 20:49 Prazosin HCl (Minipress) 1 mg QHS PO 12/20/20 21:00 12/28/20 20:50 Ramelteon (Rozerem) 8 mg QHS PO 12/20/20 21:00 12/28/20 21:43 Trazodone HCl (Desyrel) 50 mg QHSP PRN PO INSOMNIA 12/20/20 15:40 UNV Allergies Coded Allergies: cariprazine (Verified Allergy, Intermediate, increased SI, 04/18/20) Penicillins (Verified Allergy, Mild, rash, 04/18/20) risperidone (Verified Allergy, Mild, RASH, 04/18/20) prednisone (Verified Adverse Reaction, Intermediate, anxiety, agitation, 04/18/20) quetiapine (Verified Adverse Reaction, Intermediate, OCULOGYRIC CRISIS, 04/18/20) brexpiprazole (Verified Adverse Reaction, Unknown, SUICIDAL, 08/22/20) NADIRA HARVEY M.D. Dec 29, 2020 09:10
--- NOTE | 2020-12-29 09:14 | MHIPNPDOC ---
[facility] [place] Progress Note DATE OF SERVICE: 12/29/20 Except for slightly more responsive behavior and gestures he is not showing much more improvement. He remains markedly withdrawn and not much verbal response a nd appears very preoccupied and paranoid. His behavior is in control and he is in no acute distress and is not showing any rigidity or tremor and has no physical complaints. He is still refusing to take any medicine by mouth. I will give next risperidone injection increased to 37.5 mg sometime next week. HISTORY:. VITAL SIGNS: See below. NEW TEST RESULTS:. CURRENT MEDICATIONS: See below. MENTAL STATUS EXAMINATION: Patient is a 31-year old female, who is in bed withdrawn. Speech: Is not productive. Language skills are poor. Thought processes including: Not verbally responsive. Thought content: Difficult to evaluate. Abstract reasoning, and computation: P oor. Description of associations: Nonverbal. Description of abnormal or psychotic thoughts: Appears grossly paranoid. Judgment: Poor. Insight: Very poor. Orientation: Appears oriented. Recent and remote memory: Unable to evaluate. Attention span and concentration:. Language:. Fund of knowledge:. Mood: Appears anxious and suspicious. Affect: Blunted preoccupied. DIAGNOSES: 1.. Schizophrenia paranoid 2.. 3.. ASSESSMENT: No significant improvement but no gross side effect MANAGEMENT PLAN: Continue with the risperidone injection. TIME SPENT: 20 minutes. Vital Signs Vital Signs Date Time Temp Pulse Resp B/P (MAP) Pulse Ox O2 Delivery O2 Flow Rate FiO2 12/29/20 06:00 97.9 88 20 124/64 (84) 96 12/28/20 06:47 Room Air Current Medications Current Medications Medications (Trade) Dose Ordered Sig/Cory Route PRN Reason Start Time Stop Time Status Last Admin Dose Admin Acetaminophen (Tylenol Tab) 650 mg Q6HP PRN PO HEADACHE or MILD DISCOMFORT 12/20/20 15:40 Al Hydrox/Mg Hydrox/Simethicone (Mylanta) 30 ml Q4HP PRN PO HEARTBURN/INDIGESTION 12/20/20 15:40 Aripiprazole (AbiLIFY) 15 mg BID PO 12/20/20 21:00 12/28/20 20:49 Benztropine Mesylate (Cogentin) 0.5 mg BID PO 12/20/20 21:00 12/28/20 20:49 Hydroxyzine HCl (Atarax) 25 mg DAILY PO 7/1/21 09:00 12/28/20 09:34 Lorazepam (Ativan) 0.5 mg TID PO 12/25/20 09:00 12/28/20 20:49 Lorazepam (Ativan) 1 mg BID PO 12/24/20 21:00 12/25/20 08:45 DC 12/24/20 20:14 Lorazepam (Ativan) 1 mg TID PO 12/22/20 09:00 12/24/20 14:47 DC 12/24/20 09:12 Magnesium Hydroxide (Milk Of Magnesia) 30 ml DAILYPRN PRN PO CONSTIPATION 12/20/20 15:40 Nystatin (Mycostatin Powder, Nystop) Under breasts bilaterally BID TOP 12/21/20 21:00 12/27/20 10:07 Oxcarbazepine (Trileptal) 600 mg BID PO 12/20/20 21:00 12/28/20 20:49 Prazosin HCl (Minipress) 1 mg QHS PO 12/20/20 21:00 12/28/20 20:50 Ramelteon (Rozerem) 8 mg QHS PO 12/20/20 21:00 12/28/20 21:43 Trazodone HCl (Desyrel) 50 mg QHSP PRN PO INSOMNIA 12/20/20 15:40 UNV Allergies Coded Allergies: cariprazine (Verified Allergy, Intermediate, increased SI, 04/18/20) Penicillins (Verified Allergy, Mild, rash, 04/18/20) risperidone (Verified Allergy, Mild, RASH, 04/18/20) prednisone (Verified Adverse Reaction, Intermediate, anxiety, agitation, 04/18/20) quetiapine (Verified Adverse Reaction, Intermediate, OCULOGYRIC CRISIS, 04/18/20) brexpiprazole (Verified Adverse Reaction, Unknown, SUICIDAL, 08/22/20) NADIRA HARVEY M.D. Dec 29, 2020 09:14
[2020-12-29 18:38] VITALS: BP 140/78
[2020-12-29] MEDS: PRAZOSIN 1 MG CAP PO SCH (20:42)
[2020-12-29] MEDS: RAMELTEON 8 MG TAB (ROZEREM) PO SCH (20:42)
[2020-12-30 06:04] VITALS: BP 130/60
[2020-12-30] MEDS: OXcarbazepine 300 MG TAB PO SCH ×2 (08:47→21:20)
[2020-12-30] MEDS: ARIPiprazole 15 MG TAB (AbiLIFY) PO SCH ×2 (08:47→21:20)
[2020-12-30] MEDS: LORazepam 0.5 MG TAB PO SCH ×3 (08:47→21:19)
[2020-12-30] MEDS: hydrOXYzine 25 MG TAB PO SCH (08:47)
[2020-12-30] MEDS: BENZTROPINE 0.5 MG TAB PO SCH ×2 (08:47→21:20)
[2020-12-30] MEDS: NYSTATIN 100,000 UNITS/GM TOPICAL PWD 15 GM TOP SCH ×2 (09:00→21:00)
[2020-12-30 16:22] VITALS: BP 130/79
[2020-12-30] MEDS: RAMELTEON 8 MG TAB (ROZEREM) PO SCH (21:19)
[2020-12-30] MEDS: PRAZOSIN 1 MG CAP PO SCH (21:20)
[2020-12-31 05:51] VITALS: BP 122/59
[2020-12-31] MEDS: ARIPiprazole 15 MG TAB (AbiLIFY) PO SCH ×2 (08:57→20:40)
[2020-12-31] MEDS: OXcarbazepine 300 MG TAB PO SCH ×2 (08:59→20:40)
[2020-12-31] MEDS: hydrOXYzine 25 MG TAB PO SCH (09:00)
[2020-12-31] MEDS: NYSTATIN 100,000 UNITS/GM TOPICAL PWD 15 GM TOP SCH ×2 (09:00→20:40)
[2020-12-31] MEDS: BENZTROPINE 0.5 MG TAB PO SCH ×2 (09:03→20:40)
[2020-12-31] MEDS: LORazepam 0.5 MG TAB PO SCH ×3 (09:05→20:39)
[2020-12-31 18:39] VITALS: BP 132/80
[2020-12-31] MEDS: RAMELTEON 8 MG TAB (ROZEREM) PO SCH (20:39)
[2020-12-31] MEDS: PRAZOSIN 1 MG CAP PO SCH (20:40)
[2021-01-01 06:00] VITALS: BP 108/62
[2021-01-01] MEDS: NYSTATIN 100,000 UNITS/GM TOPICAL PWD 15 GM TOP SCH ×2 (09:00→21:00)
[2021-01-01] MEDS ORDERED: ARIP1TAB44 PO (09:07)
[2021-01-01] MEDS ORDERED: BENZ0.5T23 PO (09:07)
[2021-01-01] MEDS ORDERED: TRIL600T PO (09:07)
[2021-01-01] MEDS ORDERED: PRAZ1CAP PO (09:07)
[2021-01-01] MEDS ORDERED: HYDR1CAP25 PO (09:07)
[2021-01-01] MEDS: ARIPiprazole 15 MG TAB (AbiLIFY) PO SCH ×2 (09:13→21:20)
[2021-01-01] MEDS: LORazepam 0.5 MG TAB PO SCH ×3 (09:13→21:18)
[2021-01-01] MEDS: hydrOXYzine 25 MG TAB PO SCH (09:14)
[2021-01-01] MEDS: OXcarbazepine 300 MG TAB PO SCH ×2 (09:14→21:20)
[2021-01-01] MEDS: BENZTROPINE 0.5 MG TAB PO SCH ×2 (09:14→21:20)
[2021-01-01 17:15] VITALS: BP 115/57
[2021-01-01 21:20] VITALS: BP 132/88
[2021-01-01] MEDS: PRAZOSIN 1 MG CAP PO SCH (21:20)
[2021-01-01] MEDS: RAMELTEON 8 MG TAB (ROZEREM) PO SCH (21:20)
[2021-01-02 06:00] VITALS: BP 110/71
[2021-01-02] MEDS: NYSTATIN 100,000 UNITS/GM TOPICAL PWD 15 GM TOP SCH (09:00)
[2021-01-02] MEDS: hydrOXYzine 25 MG TAB PO SCH (09:15)
[2021-01-02] MEDS: ARIPiprazole 15 MG TAB (AbiLIFY) PO SCH (09:16)
[2021-01-02] MEDS: LORazepam 0.5 MG TAB PO SCH (09:16)
[2021-01-02] MEDS: OXcarbazepine 300 MG TAB PO SCH (09:16)
[2021-01-02] MEDS: BENZTROPINE 0.5 MG TAB PO SCH (09:17)
[2021-01-03] MEDS ORDERED: NYST1POW9 TOP (11:10)
[2021-01-03] MEDS ORDERED: PRAZ1CAP PO (11:10)
[2021-01-03] MEDS ORDERED: HYDR1CAP25 PO (11:10)
[2021-01-03] MEDS ORDERED: ARIP1TAB44 PO (11:10)
[2021-01-03] MEDS ORDERED: BENZ0.5T23 PO (11:10)
[2021-01-03] MEDS ORDERED: TRAZ-252 PO (11:10)
[2021-01-03] MEDS ORDERED: OXCA600T8 PO (11:10)
--- NOTE | 2021-01-04 11:37 | MHIPNPDOC ---
[facility] Progress Note Progress Note DATE OF SERVICE: 01/04/21 This is a progress note for Grace Champion on January 01, 2021. The dictation was delayed because the patient was initially to be discharged which was canceled l ater. The patient has maintained a fairly good control through the weekend and has no new complaints. This morning on Friday the patient reports that she is doing fairly well but is still very scared that that she may have no place to go because of her parents does not want her back home and feeling quite hopeless and helpless. It is decided that she has gained maximum benefit from inpatient stay and she should be discharged to her parents home while waiting for possible supportive living through developmental disability program where she has a case supervisor. Discharge orders were done but had to be canceled later due to inability to clarify the situation at home. HISTORY:. VITAL SIGNS: See below. NEW TEST RESULTS:. CURRENT MEDICATIONS: See below. MENTAL STATUS EXAMINATION: Patient is a 35-year old female, who is in no acute distress. Speech: Is simplistic but rational. Language skills are fair. Thought processes including: Relevant. Thought content: Denies any hallucination or paranoia. Abstract reasoning, and computation: Fair. Description of associations: Organized. Description of abnormal or psychotic thoughts: No gross delusion and patient denies any suicidal thoughts. Judgment: Fair. Insight: Fair.. Orientation: Well oriented. Recent and remote memory: Unimpaired. Attention span and concentration: Poor. Language:. Fund of knowledge:. Mood: Moderately anxious. Affect: Blunted but appropriate. DIAGNOSES: 1.. Autism spectrum disorder 2.. Personality disorder mixed 3.. Intellectual limitations ASSESSMENT: Appears to be at her baseline MANAGEMENT PLAN: Develop safe discharge plan. TIME SPENT: 50 minutes. Vital Signs Vital Signs Date Time Temp Pulse Resp B/P (MAP) Pulse Ox O2 Delivery O2 Flow Rate FiO2 01/02/21 06:00 98.2 69 14 110/71 (84) 97 Room Air Current Medications Current Medications Medications (Trade) Dose Ordered Sig/Cory Route PRN Reason Start Time Stop Time Status Last Admin Dose Admin Acetaminophen (Tylenol Tab) 650 mg Q6HP PRN PO HEADACHE or MILD DISCOMFORT 12/20/20 15:40 01/02/21 10:58 DC Al Hydrox/Mg Hydrox/Simethicone (Mylanta) 30 ml Q4HP PRN PO HEARTBURN/INDIGESTION 12/20/20 15:40 01/02/21 10:58 DC Aripiprazole (AbiLIFY) 15 mg BID PO 12/20/20 21:00 01/02/21 10:58 DC 01/02/21 09:16 Benztropine Mesylate (Cogentin) 0.5 mg BID PO 12/20/20 21:00 01/02/21 10:58 DC 01/02/21 09:17 Hydroxyzine HCl (Atarax) 25 mg DAILY PO 12/21/20 09:00 01/02/21 10:58 DC 01/02/21 09:15 Lorazepam (Ativan) 0.5 mg TID PO 12/25/20 09:00 01/02/21 10:58 DC 01/02/21 09:16 Lorazepam (Ativan) 1 mg BID PO 12/24/20 21:00 12/25/20 08:45 DC 12/24/20 20:14 Lorazepam (Ativan) 1 mg TID PO 12/22/20 09:00 12/24/20 14:47 DC 12/24/20 09:12 Magnesium Hydroxide (Milk Of Magnesia) 30 ml DAILYPRN PRN PO CONSTIPATION 12/20/20 15:40 01/02/21 10:58 DC Nystatin (Mycostatin Powder, Nystop) Under breasts bilaterally BID TOP 12/21/20 21:00 01/02/21 10:58 DC 12/27/20 10:07 Oxcarbazepine (Trileptal) 600 mg BID PO 12/20/20 21:00 01/02/21 10:58 DC 01/02/21 09:16 Prazosin HCl (Minipress) 1 mg QHS PO 12/20/20 21:00 01/02/21 10:58 DC 01/01/21 21:20 Ramelteon (Rozerem) 8 mg QHS PO 12/20/20 21:00 01/02/21 10:58 DC 01/01/21 21:20 Trazodone HCl (Desyrel) 50 mg QHSP PRN PO INSOMNIA 12/20/20 15:40 UNV Allergies Coded Allergies: cariprazine (Verified Allergy, Intermediate, increased SI, 04/18/20) hydroxyzine (Verified Allergy, Intermediate, RASH, 01/03/21) ALLERGY IS TO HYDROXYZINE HCL; PAMOATE IS OKAY Penicillins (Verified Allergy, Mild, rash, 04/18/20) risperidone (Verified Allergy, Mild, RASH, 04/18/20) prednisone (Verified Adverse Reaction, Intermediate, anxiety, agitation, 04/18/20) quetiapine (Verified Adverse Reaction, Intermediate, OCULOGYRIC CRISIS, 04/18/20) brexpiprazole (Verified Adverse Reaction, Unknown, SUICIDAL, 08/22/20) NADIRA HARVEY M.D. Jan 04, 2021 11:37
--- NOTE | 2021-01-04 11:48 | MHDSPDOC ---
[facility] Discharge Summary Discharge Summary DATE OF ADMISSION: Dec 20, 2020 at 18:04 DATE OF DISCHARGE: Jan 02, 2021 at 10:49 DISCHARGE DIAGNOSES: 1.. Autism spectrum disorder 2.. Rule out schizoaffective disorder REASON FOR ADMISSION: 35-year-old female with long psychiatric history with many prior admissions came to emergency room after she was kicked out of her parents home due to her threatening behavior. Patient apparently made physical threats to her mother but also had a suicidal threats due to her irritability and poor impulse control. Patient denies any intent to harm anybody and denies any intent to kill herself and denied that she was having any more hallucinations but admits that she was having problem with controlling her anger and temper and made threatening gestures to her mother and also made a suicidal threats. The mother called the police to have her brought to the emergency room and told her that she would not be able to return home to the parents. CONSULTANTS INVOLVED: TREATMENT AND PROGRESS ON THE UNIT : The patient was restarted on outpatient medications which include Trileptal 600 mg twice a day Abilify 15 mg twice a day and continue with the supportive therapy. She has maintained a fairly good control without any acting out behavior and did not show any aggressive assaultive or suicidal behavior. She stated that she used to have a problem with the seeing visions and hearing voices but those are under good control with her medication of Abilify. Several antidepressant medications was suggested but patient stated that she had bad reaction to almost all antidepressant medicine and was not able to tolerate any other atypical antipsychotic medicines so his symptoms the medication choices are very limited.. HOSPITAL COURSE: She has remained in good control and did not show any acting out behavior and continues to deny any lethality issues. She understands that she needs supportive living and is willing to cooperate with residential placement for which she has been linked with developmental disability agencies and has a case liner. It was explained that she would need to follow-up with her case liner and possible placement and patient is to be discharged either to emergency housing or her parents home since she appears to have achieved maximum benefit from inpatient and her mental status and behavior appears to be at her baseline. DISCHARGE ASSESSMENT: Patient is stable not psychotic and not suicidal or homicidal. MENTAL STATUS EXAMINATION ON DISCHARGE: Patient is a 35-year old female, who is in no acute distress. Speech is rational. Language skills are fair. Thought processes including: Relevant. Thought content: No psychotic symptoms denies any lethality. Abstract reasoning, and computation: Fair. Description of associations: Organized. Description of abnormal or psychotic thoughts: No gross psychotic symptoms. Judgment: Fair. Insight: Fair. Orientation to oriented. Recent and remote memory: No gross impairment. Attention span and concentration: Fair. Language:. Fund of knowledge:. Mood: Moderately anxious but appropriate. Affect: Blunted but appropriate. MEDICATIONS ON DISCHARGE: -For. Patient is advised to continue her home medication -For. -For. PLAN/FOLLOWUP ARRANGEMENTS: Continue current outpatient treatment. The amount of time spent in the coordination of care for this patient was approximately 30 minutes. ETOH/Disorder Med Rx ETOH/DRUG DISORDER RX: N/A Vital Signs/I&Os Vital Signs Date Time Temp Pulse Resp B/P (MAP) Pulse Ox O2 Delivery O2 Flow Rate FiO2 01/02/21 06:00 98.2 69 14 110/71 (84) 97 Room Air Medications Scheduled Aripiprazole (Aripiprazole) 30 Mg Tablet, 15 MG PO BID, (Reported) Benztropine Mesylate (Benztropine Mesylate) 0.5 Mg Tablet, 0.5 MG PO BID, (Reported) Calcium Carbonate/Vitamin D3 (Calcium 600-Vit D3 800 Tablet) 1 Each Tablet, 1 TAB PO DAILY, (Reported) Hydroxyzine Pamoate (Hydroxyzine Pamoate) 25 Mg Capsule, 25 MG PO DAILY, (Reported) Multivitamin (Multivitamins) 1 Each Tablet, 1 TAB PO DAILY, (Reported) Nystatin (Nystatin Powder) 15 Gm Powder, 1 APLCT TOP BID, (Reported) Oxcarbazepine (Oxcarbazepine) 600 Mg Tablet, 600 MG PO BID, (Reported) Prazosin Hcl (Prazosin HCl) 1 Mg Capsule, 1 MG PO QHS, (Reported) Scheduled PRN Acetaminophen (Acetaminophen) 500 Mg Tablet, 1,000 MG PO Q6H PRN for PAIN LEVEL 1-5, (Reported) Melatonin (Melatonin) 3 Mg Tablet, 3 MG PO QHS PRN for INSOMNIA, (Reported) Trazodone HCl (Trazodone HCl) 50 Mg Tablet, 50 MG PO QHS PRN for INSOMNIA, (Reported) Allergies Coded Allergies: cariprazine (Verified Allergy, Intermediate, increased SI, 04/18/20) hydroxyzine (Verified Allergy, Intermediate, RASH, 01/03/21) ALLERGY IS TO HYDROXYZINE HCL; PAMOATE IS OKAY Penicillins (Verified Allergy, Mild, rash, 04/18/20) risperidone (Verified Allergy, Mild, RASH, 04/18/20) prednisone (Verified Adverse Reaction, Intermediate, anxiety, agitation, 04/18/20) quetiapine (Verified Adverse Reaction, Intermediate, OCULOGYRIC CRISIS, 04/18/20) brexpiprazole (Verified Adverse Reaction, Unknown, SUICIDAL, 08/22/20) NADIRA HARVEY M.D. Jan 04, 2021 11:41
== END 2021-01-02 10:49 | disposition home or self-care (01) | DRG 757 ==
LOC: M PSY 18:04
PROVIDERS: ADMIT Psychiatry & Neurology Psychiatry; ATTEND Psychiatry & Neurology Psychiatry
DX: F84.0 Autistic disorder (principal); F25.9 Schizoaffective disorder, unspecified; T44.7X2A Poisoning by beta-adrenoreceptor antagonists, intentional self-harm, initial encounter; F32.9 Major depressive disorder, single episode, unspecified; T43.592A Poisoning by other antipsychotics and neuroleptics, intentional self-harm, initial encounter; F41.9 Anxiety disorder, unspecified; F42.8 Other obsessive-compulsive disorder; F10.11 Alcohol abuse, in remission; Z91.19 Patient's noncompliance with other medical treatment and regimen; R45.851 Suicidal ideations; Z91.5 Personal history of self-harm; R21 Rash and other nonspecific skin eruption; F60.89 Other specific personality disorders; Z20.822 Contact with and (suspected) exposure to COVID-19; Z79.899 Other long term (current) drug therapy; Z88.0 Allergy status to penicillin; Z88.1 Allergy status to other antibiotic agents; Z88.8 Allergy status to other drugs, medicaments and biological substances; F79 Unspecified intellectual disabilities

== ENCOUNTER 2021-01-02 14:17 | Inpatient (IN) | payer MEDICAID ==
[~2021-01-02] VITALS: Ht 157.5 cm; Wt 100.0 kg
[2021-01-02 15:24] LABS: HEMATOCRIT 40.3 % (36.0-47.0); HEMOGLOBIN 13.1 g/dl (12.0-15.5); MEAN CORPUSCULAR HEMOGLOBIN 28.1 pg (27.0-33.0); MEAN CORPUSCULAR HGB CONC 32.5 g/dl (32.0-36.5); MEAN CORPUSCULAR VOLUME 86.3 fl (80.0-96.0); PLATELET COUNT, AUTOMATED 221 10^3/uL (150-450); RED BLOOD COUNT 4.67 10^6/uL (4.00-5.40); WHITE BLOOD COUNT 11.6 10^3/uL (4.0-10.0)
[2021-01-02 15:43] LABS: HCG, SERUM QUALITATIVE NEGATIVE (NEGATIVE)
[2021-01-02 15:44] LABS: AMPHETAMINES LEVEL URINE NEGATIVE (NEGATIVE); BARBITURATES URINE NEGATIVE (NEGATIVE); BENZODIAZEPINES URINE NEGATIVE (NEGATIVE); CANNABINOIDS URINE NEGATIVE (NEGATIVE); COCAINE METABOLITE URINE NEGATIVE (NEGATIVE); METHADONE URINE NEGATIVE (NEGATIVE); OPIATES URINE NEGATIVE (NEGATIVE); PHENCYCLIDINE URINE NEGATIVE (NEGATIVE)
[2021-01-02 15:55] LABS: ACETAMINOPHEN LEVEL < 2.0 UG/ML (10.0-30.0); ALBUMIN 3.6 GM/DL (3.2-5.2); ALT/SGPT 37 U/L (12-78); BILIRUBIN,DIRECT < 0.1 MG/DL (0.0-0.2); BILIRUBIN,TOTAL 0.1 MG/DL (0.2-1.0); BLOOD UREA NITROGEN 12 MG/DL (7-18); CALCIUM LEVEL 8.7 MG/DL (8.5-10.1); CARBON DIOXIDE LEVEL 22 MEQ/L (21-32); CHLORIDE LEVEL 106 MEQ/L (98-107); CREATININE FOR GFR 0.71 MG/DL (0.55-1.30); ETHYL ALCOHOL (ETHANOL) 0.003 % (0.000-0.010); GLOMERULAR FILTRATION RATE > 60.0 (>60); GLUCOSE, FASTING 96 MG/DL (70-100); SALICYLATE LEVEL < 1.7 MG/DL (5.0-30.0); SODIUM LEVEL 138 MEQ/L (136-145); TOTAL PROTEIN 7.3 GM/DL (6.4-8.2)
[2021-01-02] MEDS ORDERED: OXcarbazepine 300 MG TAB PO ONE (22:20)
[2021-01-02] MEDS ORDERED: ARIPiprazole 10 MG TAB PO ONE (22:20)
[2021-01-02] MEDS ORDERED: BENZTROPINE 0.5 MG TAB PO ONE (22:20)
[2021-01-02] MEDS ORDERED: PRAZOSIN 1 MG CAP PO ONE (22:20)
[2021-01-03] MEDS ORDERED: ARIPiprazole 15 MG TAB (AbiLIFY) PO SCH ×2 (09:00→21:00)
[2021-01-03] MEDS ORDERED: CALCIUM/VITAMIN D 500 MG TAB PO SCH (09:00)
[2021-01-03] MEDS ORDERED: OXcarbazepine 300 MG TAB PO SCH ×2 (09:00→21:00)
[2021-01-03] MEDS ORDERED: BENZTROPINE 0.5 MG TAB PO SCH ×2 (09:00→21:00)
[2021-01-03] MEDS ORDERED: MULTIVITAMINS/MINERALS THERAP 1 TAB PO SCH ×2 (09:00)
[2021-01-03] MEDS ORDERED: OXCA600T8 PO (11:10)
[2021-01-03] MEDS ORDERED: BENZ0.5T23 PO (11:10)
[2021-01-03] MEDS ORDERED: PRAZ1CAP PO (11:10)
[2021-01-03] MEDS ORDERED: TRAZ-252 PO (11:10)
[2021-01-03] MEDS ORDERED: NYST1POW9 TOP (11:10)
[2021-01-03] MEDS ORDERED: ARIP1TAB44 PO (11:10)
[2021-01-03] MEDS ORDERED: HYDR1CAP25 PO (11:10)
[2021-01-03 12:16] LABS: RSV AMPLIFICATION NEGATIVE (NEGATIVE)
[2021-01-03] MEDS ORDERED: HOME MED LIST COMPLETE! XX SCH (12:45)
[2021-01-03] MEDS ORDERED: MOM 30ML SUSPENSION UDC PO PRN (13:50)
[2021-01-03] MEDS ORDERED: ACETAMINOPHEN TAB 650MG DOSE (2X325MG) PO PRN (13:50)
[2021-01-03] MEDS ORDERED: MAALOX 30 ML SUSP *UDC PO PRN (13:50)
[2021-01-03] MEDS ORDERED: traZODone 50 MG TAB PO PRN (13:50)
[2021-01-03] MEDS ORDERED: ACETAMINOPHEN TAB 650MG DOSE (2X325MG) PO ONE (19:35)
[2021-01-03] MEDS ORDERED: traZODone 50 MG TAB PO ONE (19:35)
--- NOTE | 2021-01-03 20:57 | ECGEPIP ---
[facility] - ED Test Date: 2021-01-03 Pat Name: LISA HUGO Department: Room: [place] [address] Gender: Female Medical Transcription: brooke : 1985 Requested By: VASILIY Moyer Order Number: [id number] Reading MD: Zaid Dowd Measurements Intervals Bandon Rate: 99 P: 49 DC: 148 QRS: 49 QRSD: 70 T: 27 QT: 336 QTc: 431 Interpretive Statements Normal sinus rhythm POOR R WAVE PROGRESSION SIMILAR TO 12/19/20 Electronically Signed on 01-03-2021 20:57:00 EDT by Zaid Dowd
[2021-01-03] MEDS ORDERED: PRAZOSIN 1 MG CAP PO ONE (21:00)
[2021-01-03] MEDS ORDERED: PRAZOSIN 1 MG CAP PO SCH ×2 (21:00)
[2021-01-03] MEDS: BENZTROPINE 0.5 MG TAB PO SCH ×3 (21:00→22:38)
[2021-01-03] MEDS ORDERED: OXcarbazepine 300 MG TAB PO ONE (21:00)
[2021-01-03] MEDS ORDERED: BENZTROPINE 0.5 MG TAB PO ONE (22:40)
[2021-01-04] MEDS ORDERED: hydrOXYzine 25 MG TAB PO SCH (09:00)
[2021-01-04] MEDS: hydrOXYzine 25 MG TAB PO SCH ×2 (09:32→19:54)
[2021-01-04] MEDS: BENZTROPINE 0.5 MG TAB PO SCH ×2 (09:32→19:54)
[2021-01-04] MEDS: ARIPiprazole 15 MG TAB (AbiLIFY) PO SCH ×2 (10:05→19:54)
[2021-01-04] MEDS: traZODone 50 MG TAB PO SCH (19:53)
[2021-01-04] MEDS: ACETAMINOPHEN TAB 650MG DOSE (2X325MG) PO PRN (19:55)
[2021-01-04] MEDS ORDERED: ARIPiprazole 10 MG TAB PO SCH (21:00)
[2021-01-04] MEDS ORDERED: METAL LOCK LOOP XX ONE (23:35)
[2021-01-05] MEDS: hydrOXYzine 25 MG TAB PO SCH ×2 (09:48→21:33)
[2021-01-05] MEDS: ARIPiprazole 15 MG TAB (AbiLIFY) PO SCH ×2 (09:48→21:34)
[2021-01-05] MEDS: BENZTROPINE 0.5 MG TAB PO SCH ×2 (09:48→21:33)
[2021-01-05] MEDS: traZODone 50 MG TAB PO SCH (21:33)
[2021-01-05] MEDS: PRAZOSIN 1 MG CAP PO SCH (21:33)
[2021-01-05] MEDS: OXcarbazepine 300 MG TAB PO SCH (21:34)
[2021-01-06] MEDS ORDERED: METAL LOCK LOOP XX ONE (02:57)
[2021-01-06] MEDS: BENZTROPINE 0.5 MG TAB PO SCH ×2 (08:54→21:05)
[2021-01-06] MEDS: hydrOXYzine 25 MG TAB PO SCH ×2 (08:54→21:05)
[2021-01-06] MEDS: OXcarbazepine 300 MG TAB PO SCH ×2 (08:54→21:06)
[2021-01-06] MEDS: ARIPiprazole 15 MG TAB (AbiLIFY) PO SCH ×2 (08:54→21:06)
[2021-01-06] MEDS: traZODone 50 MG TAB PO SCH (21:05)
[2021-01-06] MEDS: PRAZOSIN 1 MG CAP PO SCH (21:05)
[2021-01-07] MEDS: hydrOXYzine 25 MG TAB PO SCH ×2 (07:51→20:37)
[2021-01-07] MEDS: BENZTROPINE 0.5 MG TAB PO SCH ×2 (07:52→20:37)
[2021-01-07] MEDS: OXcarbazepine 300 MG TAB PO SCH ×2 (07:52→20:37)
[2021-01-07] MEDS: ARIPiprazole 15 MG TAB (AbiLIFY) PO SCH ×2 (08:47→20:37)
[2021-01-07] MEDS: traZODone 50 MG TAB PO SCH (20:36)
[2021-01-07] MEDS: PRAZOSIN 1 MG CAP PO SCH (20:37)
[2021-01-08] MEDS ORDERED: METAL LOCK LOOP XX ONE (05:37)
[2021-01-08] MEDS: ARIPiprazole 15 MG TAB (AbiLIFY) PO SCH ×2 (09:08→21:56)
[2021-01-08] MEDS: BENZTROPINE 0.5 MG TAB PO SCH ×2 (09:08→20:42)
[2021-01-08] MEDS: OXcarbazepine 300 MG TAB PO SCH ×2 (09:08→20:43)
[2021-01-08] MEDS: hydrOXYzine 25 MG TAB PO SCH ×2 (09:08→20:42)
[2021-01-08] MEDS: traZODone 50 MG TAB PO SCH (20:39)
[2021-01-08] MEDS: PRAZOSIN 1 MG CAP PO SCH (20:42)
[2021-01-08] MEDS: ACETAMINOPHEN TAB 650MG DOSE (2X325MG) PO PRN (20:43)
[2021-01-09] MEDS: hydrOXYzine 25 MG TAB PO SCH ×2 (09:44→20:09)
[2021-01-09] MEDS: OXcarbazepine 300 MG TAB PO SCH ×2 (09:44→20:09)
[2021-01-09] MEDS: BENZTROPINE 0.5 MG TAB PO SCH ×2 (09:44→20:09)
[2021-01-09] MEDS: ARIPiprazole 15 MG TAB (AbiLIFY) PO SCH ×2 (11:35→20:09)
[2021-01-09] MEDS: traZODone 50 MG TAB PO SCH (20:09)
[2021-01-09] MEDS: PRAZOSIN 1 MG CAP PO SCH (20:09)
[2021-01-10] MEDS: OXcarbazepine 300 MG TAB PO SCH ×2 (09:42→20:19)
[2021-01-10] MEDS: ARIPiprazole 15 MG TAB (AbiLIFY) PO SCH ×2 (09:42→20:17)
[2021-01-10] MEDS: hydrOXYzine 25 MG TAB PO SCH ×2 (09:42→20:17)
[2021-01-10] MEDS: BENZTROPINE 0.5 MG TAB PO SCH ×2 (09:43→20:18)
[2021-01-10] MEDS: PRAZOSIN 1 MG CAP PO SCH (20:18)
[2021-01-10] MEDS: traZODone 50 MG TAB PO SCH (20:18)
[2021-01-11] MEDS: hydrOXYzine 25 MG TAB PO SCH ×2 (08:48→21:06)
[2021-01-11] MEDS: BENZTROPINE 0.5 MG TAB PO SCH ×2 (08:48→21:07)
[2021-01-11] MEDS: OXcarbazepine 300 MG TAB PO SCH ×2 (08:48→21:07)
[2021-01-11] MEDS: ARIPiprazole 15 MG TAB (AbiLIFY) PO SCH ×2 (08:49→21:06)
[2021-01-11] MEDS ORDERED: LORazepam 2 MG TAB PO STA (13:12)
[2021-01-11] MEDS: ACETAMINOPHEN TAB 650MG DOSE (2X325MG) PO PRN (21:06)
[2021-01-11] MEDS: traZODone 50 MG TAB PO SCH (21:06)
[2021-01-11] MEDS: PRAZOSIN 1 MG CAP PO SCH (21:07)
[2021-01-12] MEDS: MULTIVITAMINS/MINERALS THERAP 1 TAB PO SCH (10:27)
[2021-01-12] MEDS: OXcarbazepine 300 MG TAB PO SCH ×2 (10:27→22:58)
[2021-01-12] MEDS: hydrOXYzine 25 MG TAB PO SCH ×2 (10:27→22:57)
[2021-01-12] MEDS: BENZTROPINE 0.5 MG TAB PO SCH ×2 (10:27→22:57)
[2021-01-12] MEDS: ARIPiprazole 15 MG TAB (AbiLIFY) PO SCH (10:47)
[2021-01-12] MEDS: CALCIUM/VITAMIN D 500 MG TAB PO SCH (10:48)
[2021-01-12] MEDS: traZODone 50 MG TAB PO SCH (22:57)
[2021-01-12] MEDS: PRAZOSIN 1 MG CAP PO SCH (22:57)
[2021-01-13] MEDS: ARIPiprazole 15 MG TAB (AbiLIFY) PO SCH ×3 (00:13→21:00)
[2021-01-13] MEDS: CALCIUM/VITAMIN D 500 MG TAB PO SCH (09:14)
[2021-01-13] MEDS: BENZTROPINE 0.5 MG TAB PO SCH ×2 (09:14→21:00)
[2021-01-13] MEDS: MULTIVITAMINS/MINERALS THERAP 1 TAB PO SCH (09:14)
[2021-01-13] MEDS: OXcarbazepine 300 MG TAB PO SCH ×2 (09:14→21:00)
[2021-01-13] MEDS: hydrOXYzine 25 MG TAB PO SCH ×2 (09:14→21:00)
[2021-01-13] MEDS: PRAZOSIN 1 MG CAP PO SCH (21:00)
[2021-01-13] MEDS: traZODone 50 MG TAB PO SCH (21:00)
[2021-01-14] MEDS: ARIPiprazole 15 MG TAB (AbiLIFY) PO SCH ×2 (08:16→19:53)
[2021-01-14] MEDS: MULTIVITAMINS/MINERALS THERAP 1 TAB PO SCH (08:16)
[2021-01-14] MEDS: hydrOXYzine 25 MG TAB PO SCH ×2 (08:16→19:52)
[2021-01-14] MEDS: OXcarbazepine 300 MG TAB PO SCH ×2 (08:16→19:52)
[2021-01-14] MEDS: BENZTROPINE 0.5 MG TAB PO SCH ×2 (08:16→19:53)
[2021-01-14] MEDS: CALCIUM/VITAMIN D 500 MG TAB PO SCH (08:16)
[2021-01-14] MEDS: traZODone 50 MG TAB PO SCH (19:52)
[2021-01-14] MEDS: PRAZOSIN 1 MG CAP PO SCH (19:53)
[2021-01-15] MEDS: CALCIUM/VITAMIN D 500 MG TAB PO SCH (10:05)
[2021-01-15] MEDS: MULTIVITAMINS/MINERALS THERAP 1 TAB PO SCH (10:05)
[2021-01-15] MEDS: OXcarbazepine 300 MG TAB PO SCH ×2 (10:06→20:34)
[2021-01-15] MEDS: BENZTROPINE 0.5 MG TAB PO SCH ×2 (10:06→20:33)
[2021-01-15] MEDS: hydrOXYzine 25 MG TAB PO SCH ×2 (10:06→20:34)
[2021-01-15] MEDS: ARIPiprazole 15 MG TAB (AbiLIFY) PO SCH ×2 (10:06→20:34)
[2021-01-15] MEDS: traZODone 50 MG TAB PO SCH (20:34)
[2021-01-15] MEDS: PRAZOSIN 1 MG CAP PO SCH (20:34)
[2021-01-16] MEDS: OXcarbazepine 300 MG TAB PO SCH (09:21)
[2021-01-16] MEDS: MULTIVITAMINS/MINERALS THERAP 1 TAB PO SCH (09:21)
[2021-01-16] MEDS: hydrOXYzine 25 MG TAB PO SCH (09:21)
[2021-01-16] MEDS: ARIPiprazole 15 MG TAB (AbiLIFY) PO SCH (09:21)
[2021-01-16] MEDS: BENZTROPINE 0.5 MG TAB PO SCH (09:21)
[2021-01-16] MEDS: CALCIUM/VITAMIN D 500 MG TAB PO SCH (09:21)
[2021-01-16] MEDS ORDERED: ACETAMINOPHEN TAB 650MG DOSE (2X325MG) PO PRN (12:05)
[2021-01-16] MEDS ORDERED: PRAZOSIN 1 MG CAP PO SCH (21:00)
[2021-01-16] MEDS ORDERED: hydrOXYzine 25 MG TAB PO SCH (21:00)
[2021-01-16] MEDS ORDERED: traZODone 50 MG TAB PO SCH (21:00)
[2021-01-16] MEDS ORDERED: BENZTROPINE 0.5 MG TAB PO SCH (21:00)
[2021-01-16] MEDS ORDERED: OXcarbazepine 300 MG TAB PO SCH (21:00)
[2021-01-17] MEDS ORDERED: CALCIUM/VITAMIN D 500 MG TAB PO SCH (09:00)
[2021-01-17] MEDS ORDERED: MULTIVITAMINS/MINERALS THERAP 1 TAB PO SCH (09:00)
[2021-01-17] MEDS ORDERED: ACETAMINOPHEN TAB 650MG DOSE (2X325MG) PO PRN (09:35)
[2021-01-17] MEDS: hydrOXYzine 25 MG TAB PO SCH ×2 (09:52→20:37)
[2021-01-17] MEDS: MULTIVITAMINS/MINERALS THERAP 1 TAB PO SCH (09:52)
[2021-01-17] MEDS: CALCIUM/VITAMIN D 500 MG TAB PO SCH (09:52)
[2021-01-17] MEDS: OXcarbazepine 300 MG TAB PO SCH ×2 (09:52→20:36)
[2021-01-17] MEDS: BENZTROPINE 0.5 MG TAB PO SCH ×2 (09:52→20:37)
[2021-01-17] MEDS: traZODone 50 MG TAB PO SCH (20:36)
[2021-01-17] MEDS: PRAZOSIN 1 MG CAP PO SCH (20:37)
[2021-01-18] MEDS: BENZTROPINE 0.5 MG TAB PO SCH ×2 (08:37→20:28)
[2021-01-18] MEDS: MULTIVITAMINS/MINERALS THERAP 1 TAB PO SCH (08:37)
[2021-01-18] MEDS: OXcarbazepine 300 MG TAB PO SCH ×2 (08:37→20:27)
[2021-01-18] MEDS: hydrOXYzine 25 MG TAB PO SCH ×2 (08:38→20:28)
[2021-01-18] MEDS: CALCIUM/VITAMIN D 500 MG TAB PO SCH (08:38)
[2021-01-18] MEDS: traZODone 50 MG TAB PO SCH (20:28)
[2021-01-18] MEDS: PRAZOSIN 1 MG CAP PO SCH (20:29)
[2021-01-19] MEDS: OXcarbazepine 300 MG TAB PO SCH ×2 (08:42→20:16)
[2021-01-19] MEDS: CALCIUM/VITAMIN D 500 MG TAB PO SCH (08:42)
[2021-01-19] MEDS: BENZTROPINE 0.5 MG TAB PO SCH ×2 (08:42→20:16)
[2021-01-19] MEDS: hydrOXYzine 25 MG TAB PO SCH ×2 (08:42→20:16)
[2021-01-19] MEDS: MULTIVITAMINS/MINERALS THERAP 1 TAB PO SCH (08:43)
[2021-01-19] MEDS ORDERED: LORazepam 2 MG TAB PO STA (09:27)
[2021-01-19] MEDS: traZODone 50 MG TAB PO SCH (20:16)
[2021-01-19] MEDS: PRAZOSIN 1 MG CAP PO SCH (20:17)
[2021-01-20] MEDS: BENZTROPINE 0.5 MG TAB PO SCH ×2 (09:22→20:15)
[2021-01-20] MEDS: MULTIVITAMINS/MINERALS THERAP 1 TAB PO SCH (09:23)
[2021-01-20] MEDS: CALCIUM/VITAMIN D 500 MG TAB PO SCH (09:23)
[2021-01-20] MEDS: hydrOXYzine 25 MG TAB PO SCH ×2 (09:23→20:15)
[2021-01-20] MEDS: OXcarbazepine 300 MG TAB PO SCH ×2 (09:24→20:12)
[2021-01-20] MEDS ORDERED: LORazepam 2 MG TAB PO STA (15:51)
[2021-01-20] MEDS: PRAZOSIN 1 MG CAP PO SCH (20:14)
[2021-01-20] MEDS: traZODone 50 MG TAB PO SCH (20:15)
[2021-01-21] MEDS: CALCIUM/VITAMIN D 500 MG TAB PO SCH (08:56)
[2021-01-21] MEDS: hydrOXYzine 25 MG TAB PO SCH ×2 (08:56→20:23)
[2021-01-21] MEDS: MULTIVITAMINS/MINERALS THERAP 1 TAB PO SCH (08:56)
[2021-01-21] MEDS: OXcarbazepine 300 MG TAB PO SCH ×2 (08:57→20:23)
[2021-01-21] MEDS: BENZTROPINE 0.5 MG TAB PO SCH ×2 (08:57→20:23)
[2021-01-21] MEDS: PRAZOSIN 1 MG CAP PO SCH (20:23)
[2021-01-21] MEDS: traZODone 50 MG TAB PO SCH (20:23)
[2021-01-22] MEDS: MULTIVITAMINS/MINERALS THERAP 1 TAB PO SCH (08:18)
[2021-01-22] MEDS: CALCIUM/VITAMIN D 500 MG TAB PO SCH (08:18)
[2021-01-22] MEDS: OXcarbazepine 300 MG TAB PO SCH ×2 (08:18→20:51)
[2021-01-22] MEDS: hydrOXYzine 25 MG TAB PO SCH ×2 (08:18→20:50)
[2021-01-22] MEDS: BENZTROPINE 0.5 MG TAB PO SCH ×2 (08:18→20:50)
[2021-01-22] MEDS: traZODone 50 MG TAB PO SCH (20:47)
[2021-01-22] MEDS: PRAZOSIN 1 MG CAP PO SCH (20:50)
[2021-01-23] MEDS ORDERED: hydrOXYzine 25 MG TAB PO SCH (09:00)
[2021-01-23] MEDS: MULTIVITAMINS/MINERALS THERAP 1 TAB PO SCH (10:28)
[2021-01-23] MEDS: ARIPiprazole 15 MG TAB (AbiLIFY) PO SCH ×2 (10:28→22:00)
[2021-01-23] MEDS: BENZTROPINE 0.5 MG TAB PO SCH (10:28)
[2021-01-23] MEDS: OXcarbazepine 300 MG TAB PO SCH ×2 (10:31→22:11)
[2021-01-23] MEDS ORDERED: ACETAMINOPHEN 500 MG TAB PO PRN (10:35)
[2021-01-23] MEDS ORDERED: traZODone 50 MG TAB PO PRN (10:35)
[2021-01-23] MEDS: CALCIUM/VITAMIN D 500 MG TAB PO SCH (11:02)
[2021-01-23] MEDS: PRAZOSIN 1 MG CAP PO SCH (22:00)
[2021-01-23] MEDS: traZODone 50 MG TAB PO SCH (22:00)
[2021-01-23] MEDS: hydrOXYzine 25 MG TAB PO SCH (22:00)
[2021-01-24] MEDS: ARIPiprazole 15 MG TAB (AbiLIFY) PO SCH ×2 (08:44→20:41)
[2021-01-24] MEDS: hydrOXYzine 25 MG TAB PO SCH ×2 (08:44→20:54)
[2021-01-24] MEDS: CALCIUM/VITAMIN D 500 MG TAB PO SCH (08:44)
[2021-01-24] MEDS: MULTIVITAMINS/MINERALS THERAP 1 TAB PO SCH (08:44)
[2021-01-24] MEDS: BENZTROPINE 0.5 MG TAB PO SCH ×2 (08:44→20:44)
[2021-01-24] MEDS: OXcarbazepine 300 MG TAB PO SCH (08:45)
[2021-01-24] MEDS: traZODone 50 MG TAB PO SCH (20:42)
[2021-01-24] MEDS: PRAZOSIN 1 MG CAP PO SCH (20:44)
[2021-01-24] MEDS ORDERED: OXcarbazepine 300 MG TAB PO ONE (20:55)
[2021-01-25] MEDS: CALCIUM/VITAMIN D 500 MG TAB PO SCH (08:45)
[2021-01-25] MEDS: ARIPiprazole 15 MG TAB (AbiLIFY) PO SCH ×2 (08:46→20:52)
[2021-01-25] MEDS: MULTIVITAMINS/MINERALS THERAP 1 TAB PO SCH (08:47)
[2021-01-25] MEDS: hydrOXYzine 25 MG TAB PO SCH ×2 (08:47→20:53)
[2021-01-25] MEDS: OXcarbazepine 300 MG TAB PO SCH ×2 (08:56→20:54)
[2021-01-25] MEDS: BENZTROPINE 0.5 MG TAB PO SCH ×2 (08:57→20:53)
[2021-01-25] MEDS: PRAZOSIN 1 MG CAP PO SCH (20:53)
[2021-01-25] MEDS: traZODone 50 MG TAB PO SCH (20:53)
[2021-01-26] MEDS: ARIPiprazole 15 MG TAB (AbiLIFY) PO SCH ×2 (08:55→21:07)
[2021-01-26] MEDS: hydrOXYzine 25 MG TAB PO SCH ×2 (08:55→21:08)
[2021-01-26] MEDS: CALCIUM/VITAMIN D 500 MG TAB PO SCH (08:55)
[2021-01-26] MEDS: OXcarbazepine 300 MG TAB PO SCH ×2 (08:55→21:07)
[2021-01-26] MEDS: BENZTROPINE 0.5 MG TAB PO SCH ×2 (08:55→21:09)
[2021-01-26] MEDS: MULTIVITAMINS/MINERALS THERAP 1 TAB PO SCH (08:56)
[2021-01-26] MEDS: traZODone 50 MG TAB PO SCH (21:09)
[2021-01-26] MEDS: PRAZOSIN 1 MG CAP PO SCH (21:09)
[2021-01-27] MEDS: ARIPiprazole 15 MG TAB (AbiLIFY) PO SCH ×2 (08:59→21:08)
[2021-01-27] MEDS: MULTIVITAMINS/MINERALS THERAP 1 TAB PO SCH (08:59)
[2021-01-27] MEDS: OXcarbazepine 300 MG TAB PO SCH ×2 (08:59→21:09)
[2021-01-27] MEDS: BENZTROPINE 0.5 MG TAB PO SCH ×2 (08:59→21:08)
[2021-01-27] MEDS: CALCIUM/VITAMIN D 500 MG TAB PO SCH (09:00)
[2021-01-27] MEDS: hydrOXYzine 25 MG TAB PO SCH ×2 (09:00→21:08)
[2021-01-27] MEDS: traZODone 50 MG TAB PO SCH (21:08)
[2021-01-27] MEDS: PRAZOSIN 1 MG CAP PO SCH (21:08)
[2021-01-28] MEDS: CALCIUM/VITAMIN D 500 MG TAB PO SCH (08:57)
[2021-01-28] MEDS: BENZTROPINE 0.5 MG TAB PO SCH ×2 (08:58→21:22)
[2021-01-28] MEDS: OXcarbazepine 300 MG TAB PO SCH ×2 (08:58→21:00)
[2021-01-28] MEDS: hydrOXYzine 25 MG TAB PO SCH ×2 (08:58→21:22)
[2021-01-28] MEDS: ARIPiprazole 15 MG TAB (AbiLIFY) PO SCH ×2 (08:58→21:22)
[2021-01-28] MEDS: MULTIVITAMINS/MINERALS THERAP 1 TAB PO SCH (08:58)
[2021-01-28] MEDS: traZODone 50 MG TAB PO SCH (21:22)
[2021-01-28] MEDS: PRAZOSIN 1 MG CAP PO SCH (21:23)
[2021-01-29] MEDS: BENZTROPINE 0.5 MG TAB PO SCH ×2 (09:21→21:07)
[2021-01-29] MEDS: ARIPiprazole 15 MG TAB (AbiLIFY) PO SCH ×2 (09:21→21:06)
[2021-01-29] MEDS: OXcarbazepine 300 MG TAB PO SCH ×2 (09:21→21:06)
[2021-01-29] MEDS: CALCIUM/VITAMIN D 500 MG TAB PO SCH (09:21)
[2021-01-29] MEDS: hydrOXYzine 25 MG TAB PO SCH ×2 (09:21→21:06)
[2021-01-29] MEDS: MULTIVITAMINS/MINERALS THERAP 1 TAB PO SCH (09:26)
[2021-01-29] MEDS: PRAZOSIN 1 MG CAP PO SCH (21:06)
[2021-01-29] MEDS: traZODone 50 MG TAB PO SCH (21:06)
[2021-01-30] MEDS: BENZTROPINE 0.5 MG TAB PO SCH ×2 (09:34→21:02)
[2021-01-30] MEDS: ARIPiprazole 15 MG TAB (AbiLIFY) PO SCH ×2 (09:35→21:02)
[2021-01-30] MEDS: hydrOXYzine 25 MG TAB PO SCH ×2 (09:35→21:02)
[2021-01-30] MEDS: CALCIUM/VITAMIN D 500 MG TAB PO SCH (09:35)
[2021-01-30] MEDS: OXcarbazepine 300 MG TAB PO SCH ×2 (09:35→21:02)
[2021-01-30] MEDS: MULTIVITAMINS/MINERALS THERAP 1 TAB PO SCH (09:35)
[2021-01-30] MEDS: PRAZOSIN 1 MG CAP PO SCH (21:02)
[2021-01-30] MEDS: traZODone 50 MG TAB PO SCH (21:02)
[2021-01-31] MEDS: hydrOXYzine 25 MG TAB PO SCH ×2 (09:00→20:35)
[2021-01-31] MEDS: OXcarbazepine 300 MG TAB PO SCH ×2 (09:53→20:35)
[2021-01-31] MEDS: CALCIUM/VITAMIN D 500 MG TAB PO SCH (09:53)
[2021-01-31] MEDS: MULTIVITAMINS/MINERALS THERAP 1 TAB PO SCH (09:53)
[2021-01-31] MEDS: BENZTROPINE 0.5 MG TAB PO SCH ×2 (09:53→20:35)
[2021-01-31] MEDS: ARIPiprazole 15 MG TAB (AbiLIFY) PO SCH ×2 (09:53→20:35)
[2021-01-31] MEDS: traZODone 50 MG TAB PO SCH (20:35)
[2021-01-31] MEDS: PRAZOSIN 1 MG CAP PO SCH (20:36)
[2021-02-01] MEDS: BENZTROPINE 0.5 MG TAB PO SCH ×2 (09:00→20:48)
[2021-02-01] MEDS: ARIPiprazole 15 MG TAB (AbiLIFY) PO SCH ×2 (09:00→20:48)
[2021-02-01] MEDS: MULTIVITAMINS/MINERALS THERAP 1 TAB PO SCH (09:00)
[2021-02-01] MEDS: OXcarbazepine 300 MG TAB PO SCH ×2 (09:00→20:48)
[2021-02-01] MEDS: CALCIUM/VITAMIN D 500 MG TAB PO SCH (09:00)
[2021-02-01] MEDS: hydrOXYzine 25 MG TAB PO SCH ×2 (09:00→20:48)
[2021-02-01] MEDS: traZODone 50 MG TAB PO SCH (20:49)
[2021-02-01] MEDS: PRAZOSIN 1 MG CAP PO SCH (20:49)
[2021-02-02] MEDS: OXcarbazepine 300 MG TAB PO SCH ×2 (08:45→21:40)
[2021-02-02] MEDS: hydrOXYzine 25 MG TAB PO SCH ×2 (08:45→21:40)
[2021-02-02] MEDS: ARIPiprazole 15 MG TAB (AbiLIFY) PO SCH ×2 (08:45→21:40)
[2021-02-02] MEDS: MULTIVITAMINS/MINERALS THERAP 1 TAB PO SCH (08:45)
[2021-02-02] MEDS: CALCIUM/VITAMIN D 500 MG TAB PO SCH (08:45)
[2021-02-02] MEDS: BENZTROPINE 0.5 MG TAB PO SCH ×2 (08:45→21:40)
[2021-02-02] MEDS: PRAZOSIN 1 MG CAP PO SCH (21:40)
[2021-02-02] MEDS: traZODone 50 MG TAB PO SCH (21:40)
[2021-02-03] MEDS: OXcarbazepine 300 MG TAB PO SCH ×2 (08:21→22:03)
[2021-02-03] MEDS: hydrOXYzine 25 MG TAB PO SCH ×2 (08:21→22:03)
[2021-02-03] MEDS: ARIPiprazole 15 MG TAB (AbiLIFY) PO SCH ×2 (08:21→22:03)
[2021-02-03] MEDS: MULTIVITAMINS/MINERALS THERAP 1 TAB PO SCH (08:21)
[2021-02-03] MEDS: BENZTROPINE 0.5 MG TAB PO SCH ×2 (08:21→22:03)
[2021-02-03] MEDS: CALCIUM/VITAMIN D 500 MG TAB PO SCH (08:21)
[2021-02-03] MEDS: traZODone 50 MG TAB PO SCH (22:03)
[2021-02-03] MEDS: PRAZOSIN 1 MG CAP PO SCH (22:03)
[2021-02-04] MEDS: BENZTROPINE 0.5 MG TAB PO SCH ×2 (09:42→21:09)
[2021-02-04] MEDS: OXcarbazepine 300 MG TAB PO SCH ×2 (09:42→21:08)
[2021-02-04] MEDS: hydrOXYzine 25 MG TAB PO SCH ×2 (09:42→21:08)
[2021-02-04] MEDS: MULTIVITAMINS/MINERALS THERAP 1 TAB PO SCH (09:42)
[2021-02-04] MEDS: ARIPiprazole 15 MG TAB (AbiLIFY) PO SCH ×2 (09:42→21:06)
[2021-02-04] MEDS: CALCIUM/VITAMIN D 500 MG TAB PO SCH (09:42)
[2021-02-04] MEDS: traZODone 50 MG TAB PO SCH (21:06)
[2021-02-04] MEDS: PRAZOSIN 1 MG CAP PO SCH (21:08)
[2021-02-05] MEDS: CALCIUM/VITAMIN D 500 MG TAB PO SCH (09:00)
[2021-02-05] MEDS: OXcarbazepine 300 MG TAB PO SCH ×2 (09:00→20:56)
[2021-02-05] MEDS: MULTIVITAMINS/MINERALS THERAP 1 TAB PO SCH (09:00)
[2021-02-05] MEDS: hydrOXYzine 25 MG TAB PO SCH ×2 (09:00→20:55)
[2021-02-05] MEDS: ARIPiprazole 15 MG TAB (AbiLIFY) PO SCH ×2 (09:00→20:55)
[2021-02-05] MEDS: BENZTROPINE 0.5 MG TAB PO SCH ×2 (09:01→20:55)
[2021-02-05] MEDS: traZODone 50 MG TAB PO SCH (20:55)
[2021-02-05] MEDS: PRAZOSIN 1 MG CAP PO SCH (21:01)
[2021-02-06] MEDS: OXcarbazepine 300 MG TAB PO SCH ×2 (08:47→20:27)
[2021-02-06] MEDS: hydrOXYzine 25 MG TAB PO SCH ×2 (08:47→20:28)
[2021-02-06] MEDS: BENZTROPINE 0.5 MG TAB PO SCH ×2 (08:47→20:28)
[2021-02-06] MEDS: CALCIUM/VITAMIN D 500 MG TAB PO SCH (08:47)
[2021-02-06] MEDS: ARIPiprazole 15 MG TAB (AbiLIFY) PO SCH ×2 (08:47→20:28)
[2021-02-06] MEDS: MULTIVITAMINS/MINERALS THERAP 1 TAB PO SCH (08:47)
[2021-02-06] MEDS: traZODone 50 MG TAB PO SCH (20:28)
[2021-02-06] MEDS: PRAZOSIN 1 MG CAP PO SCH (20:28)
[2021-02-07] MEDS: BENZTROPINE 0.5 MG TAB PO SCH ×2 (09:25→20:53)
[2021-02-07] MEDS: CALCIUM/VITAMIN D 500 MG TAB PO SCH (09:25)
[2021-02-07] MEDS: OXcarbazepine 300 MG TAB PO SCH ×2 (09:25→20:53)
[2021-02-07] MEDS: hydrOXYzine 25 MG TAB PO SCH ×2 (09:25→20:53)
[2021-02-07] MEDS: MULTIVITAMINS/MINERALS THERAP 1 TAB PO SCH (09:25)
[2021-02-07] MEDS: ARIPiprazole 15 MG TAB (AbiLIFY) PO SCH ×2 (09:25→20:53)
[2021-02-07] MEDS: traZODone 50 MG TAB PO SCH (20:53)
[2021-02-07] MEDS: PRAZOSIN 1 MG CAP PO SCH (20:53)
[2021-02-08] MEDS: CALCIUM/VITAMIN D 500 MG TAB PO SCH (08:20)
[2021-02-08] MEDS: OXcarbazepine 300 MG TAB PO SCH ×2 (08:20→20:28)
[2021-02-08] MEDS: MULTIVITAMINS/MINERALS THERAP 1 TAB PO SCH (08:20)
[2021-02-08] MEDS: ARIPiprazole 15 MG TAB (AbiLIFY) PO SCH ×2 (08:20→20:29)
[2021-02-08] MEDS: hydrOXYzine 25 MG TAB PO SCH ×2 (08:20→20:28)
[2021-02-08] MEDS: BENZTROPINE 0.5 MG TAB PO SCH ×2 (08:20→20:31)
[2021-02-08] MEDS: traZODone 50 MG TAB PO SCH (20:28)
[2021-02-08] MEDS: PRAZOSIN 1 MG CAP PO SCH (20:34)
[2021-02-09] MEDS: ARIPiprazole 15 MG TAB (AbiLIFY) PO SCH ×2 (08:32→20:58)
[2021-02-09] MEDS: MULTIVITAMINS/MINERALS THERAP 1 TAB PO SCH (08:32)
[2021-02-09] MEDS: BENZTROPINE 0.5 MG TAB PO SCH ×2 (08:33→20:59)
[2021-02-09] MEDS: CALCIUM/VITAMIN D 500 MG TAB PO SCH (08:33)
[2021-02-09] MEDS: hydrOXYzine 25 MG TAB PO SCH ×2 (08:33→20:59)
[2021-02-09] MEDS: OXcarbazepine 300 MG TAB PO SCH ×2 (08:33→20:59)
[2021-02-09] MEDS: traZODone 50 MG TAB PO SCH (20:59)
[2021-02-09] MEDS: PRAZOSIN 1 MG CAP PO SCH (21:02)
[2021-02-09] MEDS ORDERED: MAALOX 30 ML SUSP *UDC PO PRN (22:00)
[2021-02-09] MEDS ORDERED: MOM 30ML SUSPENSION UDC PO PRN (22:00)
--- NOTE | 2021-02-09 22:00 | HPEPDOC ---
[facility] Medical History & Physical Date of Admission Feb 09, 2021 Date of Service: Feb 09, 2021 Attending Physician: ANUM CROWDER MD History and Physical CHIEF COMPLAINT: [35 y/o female with inability to care for self] HISTORY OF PRESENT ILLNESS: [This is a 35 y/o female with a pmh of autism spectrum disorder, schizoaffective disorder who presented to our emergency department on 01/02 for psych eval. Patient eventually cleared by psych and awaiting placement. Patient to be admitted to hospitalist service for pfs consult and medical exam. Patient has no medical complaints when I saw her in the behavioral health unit. Patient was resting in bed. Patient tells me that she has had no recent fevers, chills, abd pain, uri sx, abd pain, n/v/d/c, dysuria, pedal edema, poor appetite.] PAST MEDICAL HISTORY: 1. [See HPI PAST SURGICAL HISTORY: 1. [Reviewed - none SOCIAL HISTORY: Tobacco use:[Denies] ETOH: [per chart - hx of alcohol abuse] Illicit drug use: [Denies] FAMILY HISTORY: Father - htn ALLERGIES: Please see below. REVIEW OF SYSTEMS: 11 point ros performed with pertinents documented in the HPI. All other findings negative. HOME MEDICATIONS: Please see below. PHYSICAL EXAMINATION: VITAL SIGNS: Please see below. GENERAL APPEARANCE: [Anxious 35 y/o female who is alert and oriented to que stioning. She is not in any acute distress]. HEENT: [No mass or lesion. EOMI. No scleral icterus. Nares patent. Oral mucosa moist]. CARDIOVASCULAR: [Regular rate, rhythm. No murmurs, rubs, gallops]. LUNGS: [Good air flow b/l. No wheezing, rales, rhonchi.]. ABDOMEN: [Soft, nontender]. MUSCULOSKELETAL: [No joint deformity]. EXTREMITIES: [No pedal edema. No overlying skin changes. Pulses intact.]. NEUROLOGICAL: [Speech clear. A+Ox3. Gait normal. Moves all fours freely. No focal deficits.]. PSYCHIATRIC: [Flat affect. Mood somewhat erratic at times.]. LABORATORY DATA: See below. IMAGING: [None performed] MICROBIOLOGY: Please see below. ASSESSMENT: [This is a 35 y/o female with a pmh of autism spectrum disorder, schizoaffective disorder who presented to our emergency department on 01/02 for psych eval. Patient eventually cleared by psych and awaiting placement. Patient to be admitted to hospitalist service for pfs consult and medical exam.]. . PLAN: 1. [Inability to care for self 2/2 ASD, Schizoaffective d/o - PFS consult - Continue all psych meds - Patient cleared by psych - does not require 1 to 1 sitter - Admit to med surg for placement DVT prophylaxis Pt ambulatory]. Vital Signs Vital Signs Date Time Temp Pulse Resp B/P (MAP) Pulse Ox O2 Delivery O2 Flow Rate FiO2 02/09/21 21:05 97.3 77 18 131/77 (95) 97 Room Air Home Medications Scheduled Aripiprazole (Aripiprazole) 30 Mg Tablet, 15 MG PO BID Benztropine Mesylate (Benztropine Mesylate) 0.5 Mg Tablet, 0.5 MG PO BID Calcium Carbonate/Vitamin D3 (Calcium 600-Vit D3 800 Tablet) 1 Each Tablet, 1 TAB PO DAILY Hydroxyzine Pamoate (Hydroxyzine Pamoate) 25 Mg Capsule, 25 MG PO DAILY Multivitamin (Multivitamins) 1 Each Tablet, 1 TAB PO DAILY Nystatin (Nystatin Powder) 15 Gm Powder, 1 APLCT TOP BID Oxcarbazepine (Oxcarbazepine) 600 Mg Tablet, 600 MG PO BID Prazosin Hcl (Prazosin HCl) 1 Mg Capsule, 1 MG PO QHS Scheduled PRN Acetaminophen (Acetaminophen) 500 Mg Tablet, 1,000 MG PO Q6H PRN for PAIN LEVEL 1-5 Melatonin (Melatonin) 3 Mg Tablet, 3 MG PO QHS PRN for INSOMNIA Trazodone HCl (Trazodone HCl) 50 Mg Tablet, 50 MG PO QHS PRN for INSOMNIA Allergies Coded Allergies: cariprazine (Verified Allergy, Intermediate, increased SI, 04/18/20) hydroxyzine (Verified Allergy, Intermediate, RASH, 01/03/21) ALLERGY IS TO HYDROXYZINE HCL; PAMOATE IS OKAY Penicillins (Verified Allergy, Mild, rash, 04/18/20) risperidone (Verified Allergy, Mild, RASH, 04/18/20) prednisone (Verified Adverse Reaction, Intermediate, anxiety, agitation, 04/18/20) quetiapine (Verified Adverse Reaction, Intermediate, OCULOGYRIC CRISIS, 04/18/20) brexpiprazole (Verified Adverse Reaction, Unknown, SUICIDAL, 08/22/20) A-FIB/CHADSVASC A-FIB History Current/History of A-Fib/PAF?: No CHARLENE BALBUENA Feb 09, 2021 22:00
[2021-02-09 23:30] VITALS: BP 135/73
[2021-02-10] MEDS ORDERED: traZODone 50 MG TAB PO PRN (00:30)
[2021-02-10 06:00] VITALS: BP 136/74
[2021-02-10] MEDS: hydrOXYzine 25 MG TAB PO SCH ×2 (08:44→20:09)
[2021-02-10] MEDS: MULTIVITAMINS/MINERALS THERAP 1 TAB PO SCH (08:44)
[2021-02-10] MEDS: BENZTROPINE 0.5 MG TAB PO SCH ×2 (08:45→20:14)
[2021-02-10] MEDS: ARIPiprazole 15 MG TAB (AbiLIFY) PO SCH ×2 (08:45→20:09)
[2021-02-10] MEDS: OXcarbazepine 300 MG TAB PO SCH ×2 (08:45→20:15)
[2021-02-10] MEDS: CALCIUM/VITAMIN D 500 MG TAB PO SCH (08:45)
[2021-02-10 14:00] VITALS: BP 149/88
[2021-02-10] MEDS: ACETAMINOPHEN 500 MG TAB PO PRN (16:48)
--- NOTE | 2021-02-10 17:08 | IPNPDOC ---
Text Note Date of Service The patient was seen on 02/10/21. NOTE Hospitalist Progress Note Subjective: She is sitting in the chair. She seems to have some anxiety, and asks quite a few questions about mental health in general. She reports that in the past she has had some suicidal thoughts, but does not currently have any at this time, and she feels that the medicine seems to be helping with that. She does not voice any acute complaints at this time. Objective: General: Awake, alert, oriented 3. Not in any acute distress. HEENT: Head normocephalic, atraumatic, sclera are nonicteric. Hearing is grossly intact to conversation. Respiratory: Clear to auscultation bilaterally with no wheezes, rales, or rhonchi. Cardiovascular: Regular rate and rhythm, with no rubs, gallops, or murmur. Assessment: Autism spectrum disorder Schizoaffective disorder Inability to care for herself Plan: No changes in medical regimen today. PFS has already been consulted, they will see and evaluate the patient on Friday as she will need placement. VS,Fishbone, I+O VS, Fishbone, I+O Vital Signs Date Time Temp Pulse Resp B/P (MAP) Pulse Ox O2 Delivery O2 Flow Rate FiO2 02/10/21 14:00 97.5 96 18 149/88 (108) 98 02/10/21 06:00 Room Air I&O- Last 24 Hours up to 6 AM 02/10/21 06:00 Intake Total 300 ml Balance 300 ml KATHY FIGUEROA DO Feb 10, 2021 17:08
[2021-02-10] MEDS: traZODone 50 MG TAB PO SCH (20:09)
[2021-02-10 20:10] VITALS: BP 151/88
[2021-02-10] MEDS: PRAZOSIN 1 MG CAP PO SCH (20:11)
[2021-02-11 07:00] VITALS: BP 138/65
[2021-02-11] MEDS: hydrOXYzine 25 MG TAB PO SCH ×2 (08:56→20:37)
[2021-02-11] MEDS: ARIPiprazole 15 MG TAB (AbiLIFY) PO SCH ×2 (08:56→20:32)
[2021-02-11] MEDS: MULTIVITAMINS/MINERALS THERAP 1 TAB PO SCH (08:56)
[2021-02-11] MEDS: CALCIUM/VITAMIN D 500 MG TAB PO SCH (08:56)
[2021-02-11] MEDS: OXcarbazepine 300 MG TAB PO SCH ×2 (08:56→20:32)
[2021-02-11] MEDS: BENZTROPINE 0.5 MG TAB PO SCH ×2 (08:56→20:32)
[2021-02-11 14:00] VITALS: BP 147/68
--- NOTE | 2021-02-11 20:18 | IPNPDOC ---
Text Note Date of Service The patient was seen on 02/11/21. NOTE Hospitalist Progress Note Subjective: She was up walking the hallways, we did step into her room to discuss how she is doing. She reports that she is feeling well at this time, and she appreciates being able to walk the hallways. Anxiety seems to increase only when there is more people, such as during signout at the nurses station, but otherwise seems to be doing fairly well throughout the day. Her only request at this time is that she might be able to use her electric shaver (for shaving her legs and armpits). I will romulo her this permission, but she may not store it in her room, and she will have to use it under nursing supervision. The shaver will likely have to be started at the nurses station are in the med room, or somewhere else on the floor. Otherwise, the remainder review of systems is negative. Objective: General: Awake, alert, oriented 3. Not in any acute distress. HEENT: Head normocephalic, atraumatic, sclera are nonicteric. Hearing is grossly intact to conversation. Respiratory: Clear to auscultation bilaterally with no wheezes, rales, or rhonchi. Cardiovascular: Regular rate and rhythm, with no rubs, gallops, or murmur. Assessment: Autism spectrum disorder Schizoaffective disorder Inability to care for herself Plan: No changes in medical regimen today. PFS has already been consulted, they will see and evaluate the patient on Friday as she will need placement. VS,Fishbone, I+O VS, Fishbone, I+O Vital Signs Date Time Temp Pulse Resp B/P (MAP) Pulse Ox O2 Delivery O2 Flow Rate FiO2 02/11/21 14:00 98.8 65 18 147/68 (94) 98 Room Air I&O- Last 24 Hours up to 6 AM 02/11/21 06:00 Intake Total 1260 ml Balance 1260 ml KATHY FIGUEROA DO Feb 11, 2021 20:18
[2021-02-11] MEDS: PRAZOSIN 1 MG CAP PO SCH (20:33)
[2021-02-11] MEDS: traZODone 50 MG TAB PO SCH (20:33)
[2021-02-11 22:00] VITALS: BP 135/72
[2021-02-12 06:50] VITALS: BP 111/65
[2021-02-12] MEDS: ARIPiprazole 15 MG TAB (AbiLIFY) PO SCH ×2 (08:56→20:28)
[2021-02-12] MEDS: MULTIVITAMINS/MINERALS THERAP 1 TAB PO SCH (08:56)
[2021-02-12] MEDS: CALCIUM/VITAMIN D 500 MG TAB PO SCH (08:56)
[2021-02-12] MEDS: OXcarbazepine 300 MG TAB PO SCH ×2 (08:56→20:29)
[2021-02-12] MEDS: hydrOXYzine 25 MG TAB PO SCH ×2 (08:57→20:29)
[2021-02-12] MEDS: BENZTROPINE 0.5 MG TAB PO SCH ×2 (08:57→20:28)
--- NOTE | 2021-02-12 17:56 | IPNPDOC ---
Text Note Date of Service The patient was seen on 02/12/21. NOTE Hospitalist Progress Note Subjective: She is once again noticed walking the hallways wearing her headphones and quietly singing to the music she is listening to. She does not seem to be bothering anybody. When she saw me she did step into the room and indicate to me that she was feeling well, did not have any acute complaints today. She is quite pleasant to speak with. Remainder of her review of systems is negative. Objective: General: Awake, alert, oriented 3. Not in any acute distress. Respiratory: Clear to auscultation bilaterally with no wheezes, rales, or rhonchi. Cardiovascular: Regular rate and rhythm, with no rubs, gallops, or murmur. Assessment: Autism spectrum disorder Schizoaffective disorder Inability to care for herself Plan: Seems stable on current medical regimen, no changes at this time. PFS is aware of her case. Needing placement. Will switch her over to ALC status today. VS,Fishbone, I+O VS, Fishbone, I+O Vital Signs Date Time Temp Pulse Resp B/P (MAP) Pulse Ox O2 Delivery O2 Flow Rate FiO2 02/12/21 06:50 97.6 85 18 111/65 (80) 97 Room Air I&O- Last 24 Hours up to 6 AM 02/12/21 06:00 Intake Total 1380 ml Balance 1380 ml KATHY FIGUEROA DO Feb 12, 2021 17:56
[2021-02-12] MEDS ORDERED: NYSTATIN 100,000 UNITS/GM TOPICAL PWD 15 GM TOP PRN (19:35)
[2021-02-12] MEDS: traZODone 50 MG TAB PO SCH (20:28)
[2021-02-12] MEDS: PRAZOSIN 1 MG CAP PO SCH (20:28)
[2021-02-12 22:00] VITALS: BP 133/89
[2021-02-13 06:00] VITALS: BP 121/70
[2021-02-13] MEDS: OXcarbazepine 300 MG TAB PO SCH ×2 (07:54→20:27)
[2021-02-13] MEDS: CALCIUM/VITAMIN D 500 MG TAB PO SCH (07:54)
[2021-02-13] MEDS: ARIPiprazole 15 MG TAB (AbiLIFY) PO SCH ×2 (07:54→20:28)
[2021-02-13] MEDS: MULTIVITAMINS/MINERALS THERAP 1 TAB PO SCH (07:54)
[2021-02-13] MEDS: hydrOXYzine 25 MG TAB PO SCH ×2 (07:54→20:27)
[2021-02-13] MEDS: BENZTROPINE 0.5 MG TAB PO SCH ×2 (07:55→20:28)
--- NOTE | 2021-02-13 12:47 | IPNPDOC ---
Text Note Date of Service The patient was seen on 02/13/21. NOTE Subjective: Patient is a 35-year-old female with a PMHx of Autism spectrum disorder, Schizoaffective disorder, presented to the ER on 01/02 for a psychiatric evaluation. Patient was cleared psychiatry and was ultimately admitted to the hospital service for likely placement on 02/09. She had remained about ER, from 01/02-01/09. Patient was seen and examined at the bedside. Patient was seen ambulating in the room. Denies any chest pain, shortness of breath, palpitations, nausea, vomiting, abdominal pain or diarrhea. Denies any urinary discomfort. Objective: Vitals (See below) General: Lying in bed, appears comfortable, AAOx3 HEENT: NC, AT CVS: +S1S2 Lungs: Fair air entry b/l, no evidence of wheezing, rales or rhonchi Abdomen: Soft, ND, NT Extremities: - Edema, - Calf tenderness Assessment: Autism spectrum disorder Schizoaffective disorder Inability to care for herself DVT prophylaxis; ambulation Plan: - Continue with current medications to changes and plan Disposition: - PFS on case and looking into placement - c/w ALC status VS,Fishbone, I+O VS, Fishbone, I+O Vital Signs Date Time Temp Pulse Resp B/P (MAP) Pulse Ox O2 Delivery O2 Flow Rate FiO2 02/13/21 06:00 98.0 75 15 121/70 (87) 99 02/12/21 06:50 Room Air I&O- Last 24 Hours up to 6 AM 02/13/21 06:00 Intake Total 600 ml Balance 600 ml BRIDGETT CENTENO MD Feb 13, 2021 12:47
[2021-02-13 14:00] VITALS: BP 147/92
[2021-02-13] MEDS: PRAZOSIN 1 MG CAP PO SCH (20:27)
[2021-02-13] MEDS: traZODone 50 MG TAB PO SCH (20:27)
[2021-02-13 20:30] VITALS: BP 146/91
[2021-02-14 06:00] VITALS: BP 147/91
[2021-02-14] MEDS: BENZTROPINE 0.5 MG TAB PO SCH ×2 (07:48→21:00)
[2021-02-14] MEDS: ARIPiprazole 15 MG TAB (AbiLIFY) PO SCH ×2 (07:48→21:00)
[2021-02-14] MEDS: CALCIUM/VITAMIN D 500 MG TAB PO SCH (07:49)
[2021-02-14] MEDS: MULTIVITAMINS/MINERALS THERAP 1 TAB PO SCH (07:49)
[2021-02-14] MEDS: OXcarbazepine 300 MG TAB PO SCH ×2 (07:49→21:01)
[2021-02-14] MEDS: hydrOXYzine 25 MG TAB PO SCH ×2 (07:49→21:00)
[2021-02-14 14:00] VITALS: BP 139/85
[2021-02-14 21:00] VITALS: BP 137/97
[2021-02-14] MEDS: PRAZOSIN 1 MG CAP PO SCH (21:00)
[2021-02-14] MEDS: traZODone 50 MG TAB PO SCH (21:00)
[2021-02-15 06:00] VITALS: BP 162/92
[2021-02-15] MEDS: ARIPiprazole 15 MG TAB (AbiLIFY) PO SCH ×2 (08:34→20:37)
[2021-02-15] MEDS: OXcarbazepine 300 MG TAB PO SCH ×2 (08:35→20:38)
[2021-02-15] MEDS: MULTIVITAMINS/MINERALS THERAP 1 TAB PO SCH (08:35)
[2021-02-15] MEDS: CALCIUM/VITAMIN D 500 MG TAB PO SCH (08:35)
[2021-02-15] MEDS: hydrOXYzine 25 MG TAB PO SCH ×2 (08:35→20:38)
[2021-02-15] MEDS: BENZTROPINE 0.5 MG TAB PO SCH ×2 (08:35→20:37)
[2021-02-15] MEDS: NYSTATIN 100,000 UNITS/GM TOPICAL PWD 15 GM TOP SCH ×2 (14:00→20:39)
[2021-02-15] MEDS: traZODone 50 MG TAB PO SCH (20:37)
[2021-02-15] MEDS: PRAZOSIN 1 MG CAP PO SCH (20:37)
[2021-02-16 06:00] VITALS: BP 121/70
[2021-02-16] MEDS: ARIPiprazole 15 MG TAB (AbiLIFY) PO SCH ×2 (08:28→20:05)
[2021-02-16] MEDS: hydrOXYzine 25 MG TAB PO SCH ×2 (08:29→20:06)
[2021-02-16] MEDS: CALCIUM/VITAMIN D 500 MG TAB PO SCH (08:29)
[2021-02-16] MEDS: MULTIVITAMINS/MINERALS THERAP 1 TAB PO SCH (08:29)
[2021-02-16] MEDS: BENZTROPINE 0.5 MG TAB PO SCH ×2 (08:29→20:06)
[2021-02-16] MEDS: NYSTATIN 100,000 UNITS/GM TOPICAL PWD 15 GM TOP SCH ×2 (08:30→20:04)
[2021-02-16] MEDS: OXcarbazepine 300 MG TAB PO SCH ×2 (08:30→20:05)
[2021-02-16] MEDS: traZODone 50 MG TAB PO SCH (20:05)
[2021-02-16] MEDS: PRAZOSIN 1 MG CAP PO SCH (20:05)
[2021-02-17 07:10] VITALS: BP 119/97
[2021-02-17] MEDS: BENZTROPINE 0.5 MG TAB PO SCH ×2 (09:05→20:33)
[2021-02-17] MEDS: hydrOXYzine 25 MG TAB PO SCH ×2 (09:05→20:33)
[2021-02-17] MEDS: CALCIUM/VITAMIN D 500 MG TAB PO SCH (09:05)
[2021-02-17] MEDS: ARIPiprazole 15 MG TAB (AbiLIFY) PO SCH ×2 (09:05→20:32)
[2021-02-17] MEDS: OXcarbazepine 300 MG TAB PO SCH ×2 (09:05→20:32)
[2021-02-17] MEDS: MULTIVITAMINS/MINERALS THERAP 1 TAB PO SCH (09:05)
[2021-02-17] MEDS: NYSTATIN 100,000 UNITS/GM TOPICAL PWD 15 GM TOP SCH ×2 (09:06→20:35)
[2021-02-17 14:00] VITALS: BP 138/89
[2021-02-17] MEDS: traZODone 50 MG TAB PO SCH (20:33)
[2021-02-17] MEDS: PRAZOSIN 1 MG CAP PO SCH (20:33)
[2021-02-18 06:42] VITALS: BP 130/67
[2021-02-18] MEDS: hydrOXYzine 25 MG TAB PO SCH ×2 (08:06→20:45)
[2021-02-18] MEDS: ARIPiprazole 15 MG TAB (AbiLIFY) PO SCH ×2 (08:06→20:44)
[2021-02-18] MEDS: BENZTROPINE 0.5 MG TAB PO SCH ×2 (08:07→20:45)
[2021-02-18] MEDS: OXcarbazepine 300 MG TAB PO SCH ×2 (08:07→20:44)
[2021-02-18] MEDS: MULTIVITAMINS/MINERALS THERAP 1 TAB PO SCH (08:07)
[2021-02-18] MEDS: NYSTATIN 100,000 UNITS/GM TOPICAL PWD 15 GM TOP SCH ×2 (08:07→20:45)
[2021-02-18] MEDS: CALCIUM/VITAMIN D 500 MG TAB PO SCH (08:07)
[2021-02-18] MEDS: LITHIUM CARBONATE 150 MG CAP PO SCH ×2 (09:00→20:45)
[2021-02-18 14:00] VITALS: BP 159/85
[2021-02-18 20:41] VITALS: BP 155/100
[2021-02-18] MEDS: traZODone 50 MG TAB PO SCH (20:44)
[2021-02-18] MEDS: PRAZOSIN 1 MG CAP PO SCH (20:44)
[2021-02-18] MEDS: clonazePAM 0.5 MG TAB PO SCH (20:44)
[2021-02-19] MEDS: ARIPiprazole 15 MG TAB (AbiLIFY) PO SCH ×2 (09:11→20:45)
[2021-02-19] MEDS: hydrOXYzine 25 MG TAB PO SCH ×2 (09:12→20:47)
[2021-02-19] MEDS: MULTIVITAMINS/MINERALS THERAP 1 TAB PO SCH (09:12)
[2021-02-19] MEDS: OXcarbazepine 300 MG TAB PO SCH ×2 (09:12→20:44)
[2021-02-19] MEDS: CALCIUM/VITAMIN D 500 MG TAB PO SCH (09:13)
[2021-02-19] MEDS: LITHIUM CARBONATE 150 MG CAP PO SCH ×2 (09:13→20:46)
[2021-02-19] MEDS: BENZTROPINE 0.5 MG TAB PO SCH ×2 (09:13→20:45)
[2021-02-19] MEDS: NYSTATIN 100,000 UNITS/GM TOPICAL PWD 15 GM TOP SCH ×2 (09:14→20:45)
[2021-02-19 09:22] LABS: BASO # 0.1 10^3/uL (0.0-0.2); BASO % 0.6 % (0.0-1.0); EOS # 0.1 10^3/uL (0.0-0.5); EOS % 1.4 % (0.0-3.0); HEMATOCRIT 40.9 % (36.0-47.0); HEMOGLOBIN 13.1 g/dl (12.0-15.5); LYMPH # 1.1 10^3/uL (1.5-5.0); LYMPH % 10.3 % (24.0-44.0); MEAN CORPUSCULAR HEMOGLOBIN 27.6 pg (27.0-33.0); MEAN CORPUSCULAR VOLUME 86.1 fl (80.0-96.0); MONO # 0.7 10^3/uL (0.0-0.8); MONO % 7.2 % (2.0-8.0); NEUTROPHILS # 8.2 10^3/uL (1.5-8.5); NEUTROPHILS % 79.8 % (36.0-66.0); PLATELET COUNT, AUTOMATED 248 10^3/uL (150-450); RED BLOOD COUNT 4.75 10^6/uL (4.00-5.40); WHITE BLOOD COUNT 10.3 10^3/uL (4.0-10.0)
[2021-02-19 09:46] LABS: BLOOD UREA NITROGEN 13 MG/DL (7-18); CALCIUM LEVEL 8.6 MG/DL (8.5-10.1); CARBON DIOXIDE LEVEL 26 MEQ/L (21-32); CHLORIDE LEVEL 109 MEQ/L (98-107); CREATININE FOR GFR 0.81 MG/DL (0.55-1.30); GLOMERULAR FILTRATION RATE > 60.0 (>60); GLUCOSE, FASTING 148 MG/DL (70-100); MAGNESIUM LEVEL 2.1 MG/DL (1.8-2.4); POTASSIUM SERUM 4.3 MEQ/L (3.5-5.1); SODIUM LEVEL 138 MEQ/L (136-145)
[2021-02-19] MEDS: clonazePAM 0.5 MG TAB PO SCH (20:42)
[2021-02-19] MEDS: traZODone 50 MG TAB PO SCH (20:45)
[2021-02-19] MEDS: PRAZOSIN 1 MG CAP PO SCH (20:53)
[2021-02-19 21:00] VITALS: BP 144/95
[2021-02-20 06:00] VITALS: BP 110/64
[2021-02-20] MEDS: NYSTATIN 100,000 UNITS/GM TOPICAL PWD 15 GM TOP SCH ×2 (08:42→20:54)
[2021-02-20] MEDS: ARIPiprazole 15 MG TAB (AbiLIFY) PO SCH ×2 (08:42→20:55)
[2021-02-20] MEDS: MULTIVITAMINS/MINERALS THERAP 1 TAB PO SCH (08:42)
[2021-02-20] MEDS: LITHIUM CARBONATE 150 MG CAP PO SCH ×2 (08:42→20:56)
[2021-02-20] MEDS: hydrOXYzine 25 MG TAB PO SCH ×2 (08:42→20:55)
[2021-02-20] MEDS: OXcarbazepine 300 MG TAB PO SCH ×2 (08:43→20:54)
[2021-02-20] MEDS: BENZTROPINE 0.5 MG TAB PO SCH ×2 (08:43→20:55)
[2021-02-20] MEDS: CALCIUM/VITAMIN D 500 MG TAB PO SCH (08:43)
--- NOTE | 2021-02-20 12:55 | IPNPDOC ---
Text Note Date of Service The patient was seen on 02/20/21. NOTE Subjective: 35 yo female with a PMHx of Autism spectrum disorder, Schizoaffective disorder, presented to the ER on 01/02 for a psychiatric evaluation. Patient was cleared by psychiatry and was ultimately admitted to the hospital service for placement on 02/09. She had remained about ER, from 01/02-01/09. Patient was seen and examined at the bedside. Patient was seen ambulating in the room. Denies any chest pain, shortness of breath, palpitations, nausea, vomiting, abdominal pain or diarrhea. Denies any urinary discomfort. Objective: Vitals (See below) General: sitting in chair, anxious, restless Psych: AAOx3 HEENT: NC,AT CVS: +S1S2, RRR Lungs: Fair air entry b/l, no evidence of wheezing, rales or rhonchi Abdomen: Soft, ND, NT, obese Extremities: - Edema, - Calf tenderness Neuro: no gross focal deficits Assessment: #Autism spectrum disorder #Schizoaffective disorder #Inability to care for herself Plan: - Continue with current medications Disposition: - PFS on case and looking into placement - c/w ALC status VS,Fishbone, I+O VS, Fishbone, I+O Vital Signs Date Time Temp Pulse Resp B/P (MAP) Pulse Ox O2 Delivery O2 Flow Rate FiO2 02/20/21 06:00 97.2 71 20 110/64 (79) 98 Room Air I&O- Last 24 Hours up to 6 AM 02/20/21 06:00 Intake Total 1780 ml Balance 1780 ml CHYNA VACA MD Feb 20, 2021 12:55
[2021-02-20] MEDS: clonazePAM 0.5 MG TAB PO SCH (20:55)
[2021-02-20] MEDS: traZODone 50 MG TAB PO SCH (20:55)
[2021-02-20] MEDS: PRAZOSIN 1 MG CAP PO SCH (20:56)
[2021-02-21 06:47] VITALS: BP 125/73
[2021-02-21] MEDS: ARIPiprazole 15 MG TAB (AbiLIFY) PO SCH ×2 (10:13→22:00)
[2021-02-21] MEDS: BENZTROPINE 0.5 MG TAB PO SCH ×2 (10:13→22:02)
[2021-02-21] MEDS: NYSTATIN 100,000 UNITS/GM TOPICAL PWD 15 GM TOP SCH ×2 (10:13→22:03)
[2021-02-21] MEDS: CALCIUM/VITAMIN D 500 MG TAB PO SCH (10:14)
[2021-02-21] MEDS: hydrOXYzine 25 MG TAB PO SCH ×2 (10:14→22:01)
[2021-02-21] MEDS: OXcarbazepine 300 MG TAB PO SCH ×2 (10:14→22:02)
[2021-02-21] MEDS: MULTIVITAMINS/MINERALS THERAP 1 TAB PO SCH (10:14)
[2021-02-21] MEDS: LITHIUM CARBONATE 150 MG CAP PO SCH (10:14)
--- NOTE | 2021-02-21 17:27 | MHCRPDOC ---
[facility] Consultation Consultation DATE OF CONSULTATION: 02/21/21 CONSULTATION REQUESTED BY: Bon Arboleda MD REASON FOR CONSULTATION: Concerns for aggression on the unit and suicidal statements made by patient. RELEVANT HISTORY: Grace is a 35 woman with a history of schizoaffective bipolar type, autism spectrum disorder, and major depressive disorder. She is currently admitted on a social placement awaiting a bed through [facility] for long- term residence. As such she is currently homeless and does not have a place to stay if she would be discharged from the hospital. Per the primary team that maryanne tay had made statements of wanting to and had also threatened staff at various times. Grace admits that she has at times made the statements during this hospitalization, and she endorses that this is a frequent behavior for her that occurs when she becomes distressed. She denies having any current intent or plan to follow through on statements and is looking forward to being able to live in the community residence. She reports taking her medications as prescribed, and acknowledges that she was seen by Dr Bassett recently who recommended starting her on lithium. She feels that lithium so far has not worked, however this medication is only been administered for 2 days at this time. She does report having a lithium in the past and felt that although it been helpful she had had to stop it due to higher doses suppressing her thyroid function. She does admit to having a brief episode of suicidal ideation while she was on the phone with her mother earlier today, but states that after she hung up with her mother she listen to music and was able to calm herself using her previously known and working coping skills. PAST PSYCHIATRIC HISTORY: Extensive psychiatric history with multiple admissions, the last admission was an November [address] [facility]. She sees a Dr. Bird through telepsychiatry services and spoke with her regular therapist, David, 2 days ago via telephone. She currently takes Abilify 30 mg total daily dose, oxcarbazepine 600 mg twice daily, prazosin, and trazodone for sleep. She feels that these medications have been helpful for her, recently she was started on the 150 mg twice daily of lithium carbonate for reducing suicidal urges and 0.5 mg at night of clonazepam to help with sleep. Denies a history of past attempts of suicide but reports extensive history of past self injury including cutting behaviors within the past 2 months. Denies any attempts at se lf injury or suicide while in the hospital currently. PAST MEDICAL HISTORY: Denies any significant contributing medical history FAMILY HISTORY: Not well aware of family history, feels that her father struggles with depression. PERSONAL AND SOCIAL HISTORY: The patient was born and raised in [place]. She was previously living with her parents, however after repeated arguments it was decided that she could no longer live at home due to parents feelings of inability to maintain their safety or hers. The decision was made to pursue housing placement in a community residence, however this is been taking some time and the patient does not have a place to live and as her parents will not allow her to live at home currently. Resides in: [place] Marital Status: S Single Children: None Employment: On disability SUBSTANCE ABUSE HISTORY: Smoking: Denies a history ETOH: Reports occasional alcohol use, denies extensive drinking recently, does report that she has a history of alcohol abuse Illicit Drugs: Denies use of illicit drugs at present LEGAL HISTORY: Denies a history of legal charges. MENTAL STATUS EXAMINATION: Patient is a 35-year old female, who is dressed in street clothing, she appears to be quite comfortable while sitting and talking, she appears her stated age.. Speech is clear with regular rate, rhythm, and tone. Volume is at times slightly to allow for the setting as we are speaking closely to each other in a quiet room although she speaks as though she is having to shout over people to be heard.. Language skills are intact. Thought processes including: Logical, coherent, goal oriented. Thought content: Focused on wanting to find placement in the community. Afraid that she will need [facility] as she struggles with "I am trying to be perfect but I just cannot be that way all the time". Abstract reasoning, and computation: Intact. Description of associations: Linear. Description of abnormal or psychotic thoughts: Denies active suicidal ideation, homicidal ideation, auditory visual hallucinations. Does not appear internally preoccupied during the interview. Judgment: Fair. Insight: Fair. Orientation to x3. Recent and remote memory: Intact. Attention span and concentration: Intact. Language: Fluent. Fund of knowledge: Appropriate for age and situation. Mood: "Anxious ". Affect: Mildly anxious, blunted range, congruent to stated mood and thought con tent. DIAGNOSIS: 1. Schizoaffective disorder, bipolar type 2. Autism spectrum disorder 3. Unspecified anxiety disorder PLAN: 1. At this time patient does not meet criteria for inpatient mental health placement. Given her history of autism spectrum disorder and reliance on electronic coping skills she would likely do quite poorly if she were to be admitted to unit at this time as well. She remains compliant with her medications at this time. Although the patient makes occasionally express thoughts of suicide she at this time does not require a sitter as she does not have intent or plan, and states that she does not want to as she enjoys her life, and is looking forward to her placement. Of note recorded history from past several [facility] indicate that the patient has a long history of impulsive suicidal statements and nonsuicidal self-injurious behaviors. Given her diagnosis of autism spectrum disorder the patient may benefit from having an established routine while on the unit to help her organize and have a sense of calmness. 2. Continue current medications, recommend increasing lithium to 300 mg twice daily. Vital Signs Vital Signs Date Time Temp Pulse Resp B/P (MAP) Pulse Ox O2 Delivery O2 Flow Rate FiO2 02/21/21 06:47 97.3 95 20 125/73 (90) 98 Room Air Home Medications Current Medications Current Medications Medications (Trade) Dose Ordered Sig/Cory Route PRN Reason Start Time Stop Time Status Last Admin Dose Admin Acetaminophen (Tylenol Tab) 650 mg Q4HP PRN PO MILD PAIN or TEMP > 101 01/04/21 19:45 01/16/21 09:56 DC 01/11/21 21:06 Acetaminophen (Tylenol Tab) 650 mg Q4HP PRN PO PAIN LEVEL 5-10 01/16/21 12:05 01/17/21 09:34 DC Acetaminophen (Tylenol Tab) 650 mg Q4HP PRN PO PAIN LEVEL 5-10 01/17/21 09:35 01/23/21 06:49 DC 01/22/21 20:52 Acetaminophen (Tylenol Tab) 650 mg Q6HP PRN PO HEADACHE or MILD DISCOMFORT 01/03/21 13:50 01/03/21 15:01 DC Acetaminophen (Tylenol Tab) 1,000 mg Q6HP PRN PO MODERATE PAIN (PS 5-7) 02/10/21 01:20 02/10/21 16:48 Acetaminophen (Tylenol Tab) 1,000 mg Q6HP PRN PO PAIN LEVEL 5-7 01/23/21 10:35 02/10/21 01:24 DC 01/29/21 05:57 Al Hydrox/Mg Hydrox/Simethicone (Mylanta) 30 ml DAILY PRN PO DYSPEPSIA 02/09/21 22:00 02/11/21 22:40 Al Hydrox/Mg Hydrox/Simethicone (Mylanta) 30 ml Q4HP PRN PO HEARTBURN/INDIGESTION 01/03/21 13:50 01/03/21 15:01 DC Aripiprazole (AbiLIFY) 15 mg BID PO 01/03/21 09:00 01/03/21 14:11 DC 01/03/21 09:32 Aripiprazole (AbiLIFY) 15 mg BID PO 01/03/21 21:00 01/03/21 18:24 DC Aripiprazole (AbiLIFY) 15 mg BID PO 01/04/21 09:05 01/16/21 09:56 DC 01/16/21 09:21 Aripiprazole (AbiLIFY) 15 mg BID PO 01/16/21 21:00 01/17/21 09:38 DC 01/16/21 21:58 Aripiprazole (AbiLIFY) 15 mg BID PO 01/17/21 09:00 01/23/21 06:49 DC 01/22/21 20:51 Aripiprazole (AbiLIFY) 15 mg BID PO 02/10/21 09:00 02/21/21 10:13 Aripiprazole (AbiLIFY) 15 mg BID PO 01/23/21 09:00 02/10/21 01:24 DC 02/09/21 20:58 Aripiprazole (AbiLIFY) 30 mg QHS PO 01/04/21 21:00 01/04/21 09:21 DC Benztropine Mesylate (Cogentin) 0.5 mg BID PO 01/03/21 09:00 01/03/21 14:11 DC 01/03/21 09:32 Benztropine Mesylate (Cogentin) 0.5 mg BID PO 01/03/21 21:00 01/03/21 18:24 DC Benztropine Mesylate (Cogentin) 0.5 mg BID PO 01/04/21 09:05 01/16/21 09:56 DC 01/16/21 09:21 Benztropine Mesylate (Cogentin) 0.5 mg BID PO 01/16/21 21:00 01/17/21 09:38 DC 01/16/21 21:58 Benztropine Mesylate (Cogentin) 0.5 mg BID PO 01/17/21 09:00 01/23/21 06:49 DC 01/22/21 20:50 Benztropine Mesylate (Cogentin) 0.5 mg BID PO 02/10/21 09:00 02/21/21 10:13 Benztropine Mesylate (Cogentin) 0.5 mg BID PO 01/23/21 09:00 02/10/21 01:25 DC 02/09/21 20:59 Benztropine Mesylate (Cogentin) 0.5 mg QHS PO 01/03/21 21:00 01/04/21 09:21 DC Calcium/Vitamin D (Oscal D) 500 mg DAILY PO 01/03/21 09:00 01/03/21 14:11 DC 01/03/21 09:32 Calcium/Vitamin D (Oscal D) 500 mg DAILY PO 01/12/21 09:00 01/16/21 09:56 DC 01/16/21 09:21 Calcium/Vitamin D (Oscal D) 500 mg DAILY PO 01/17/21 09:00 01/17/21 09:38 DC 01/23/21 10:28 Calcium/Vitamin D (Oscal D) 500 mg DAILY PO 01/17/21 09:00 01/23/21 06:49 DC 01/22/21 08:18 Calcium/Vitamin D (Oscal D) 500 mg QAM PO 02/10/21 09:00 02/21/21 10:14 Calcium/Vitamin D (Oscal D) 500 mg QAM PO 01/23/21 09:00 02/10/21 01:26 DC 02/09/21 08:33 Clonazepam (KlonoPIN) 0.5 mg QHS PO 02/18/21 21:00 02/20/21 20:55 Home Med (Med Rec Complete!) ASDIRECTED XX 01/03/21 12:45 01/03/21 12:47 DC Hydroxyzine HCl (Atarax) 25 mg BID PO 01/04/21 09:05 01/16/21 09:56 DC 01/16/21 09:21 Hydroxyzine HCl (Atarax) 25 mg BID PO 01/16/21 21:00 01/17/21 09:38 DC 01/16/21 21:58 Hydroxyzine HCl (Atarax) 25 mg BID PO 01/17/21 09:00 01/23/21 06:49 DC 01/22/21 20:50 Hydroxyzine HCl (Atarax) 25 mg BID PO 02/10/21 09:00 02/21/21 10:14 Hydroxyzine HCl (Atarax) 25 mg BID PO 01/23/21 21:00 02/10/21 01:26 DC 02/09/21 20:59 Hydroxyzine HCl (Atarax) 25 mg DAILY PO 01/04/21 09:00 01/03/21 18:24 DC Hydroxyzine HCl (Atarax) 25 mg DAILY PO 01/23/21 09:00 01/23/21 10:38 DC 01/23/21 10:28 Lightstreet Carbonate (Lightstreet Carbonate) 150 mg BID PO 02/18/21 09:00 02/21/21 10:14 Lorazepam (Ativan) 2 mg STAT STAT PO 01/11/21 13:12 01/11/21 13:13 DC 01/11/21 13:46 Lorazepam (Ativan) 2 mg STAT STAT PO 01/19/21 09:27 01/19/21 09:28 DC 01/19/21 09:35 Lorazepam (Ativan) 2 mg STAT STAT PO 01/20/21 15:51 01/20/21 15:52 DC 01/20/21 16:20 Magnesium Hydroxide (Milk Of Magnesia) 30 ml DAILY PRN PO CONSTIPATION 02/09/21 22:00 Magnesium Hydroxide (Milk Of Magnesia) 30 ml DAILYPRN PRN PO CONSTIPATION 01/03/21 13:50 01/03/21 15:01 DC Multivitamins (Theragram-M) 1 tab DAILY PO 01/03/21 09:00 01/03/21 14:11 DC 01/03/21 09:32 Multivitamins (Theragram-M) 1 tab DAILY PO 01/03/21 09:00 01/03/21 18:24 DC Multivitamins (Theragram-M) 1 tab DAILY PO 01/12/21 09:00 01/16/21 09:56 DC 01/16/21 09:21 Multivitamins (Theragram-M) 1 tab DAILY PO 01/17/21 09:00 01/17/21 09:39 DC Multivitamins (Theragram-M) 1 tab DAILY PO 01/17/21 09:00 01/23/21 06:49 DC 01/22/21 08:18 Multivitamins (Theragram-M) 1 tab DAILY PO 02/10/21 09:00 02/21/21 10:14 Multivitamins (Theragram-M) 1 tab DAILY PO 01/23/21 09:00 02/10/21 01:27 DC 02/09/21 08:32 Nystatin (Mycostatin Powder, Nystop) 1 dose BID TOP 02/15/21 14:00 02/21/21 10:13 Nystatin (Mycostatin Powder, Nystop) apply to breast folds... BIDP PRN TOP RASH 02/12/21 19:35 02/15/21 12:40 DC Oxcarbazepine (Trileptal) 600 mg BID PO 01/03/21 09:00 01/03/21 14:11 DC 01/03/21 09:32 Oxcarbazepine (Trileptal) 600 mg BID PO 01/03/21 21:00 01/03/21 18:24 DC Oxcarbazepine (Trileptal) 600 mg BID PO 01/05/21 21:00 01/16/21 09:56 DC 01/16/21 09:21 Oxcarbazepine (Trileptal) 600 mg BID PO 01/16/21 21:00 01/17/21 09:39 DC 01/16/21 21:58 Oxcarbazepine (Trileptal) 600 mg BID PO 01/17/21 09:00 01/23/21 06:49 DC 01/22/21 20:51 Oxcarbazepine (Trileptal) 600 mg BID PO 02/10/21 09:00 02/21/21 10:14 Oxcarbazepine (Trileptal) 600 mg BID PO 01/23/21 09:00 02/10/21 01:28 DC 02/09/21 20:59 Prazosin HCl (Minipress) 1 mg QHS PO 01/03/21 21:00 01/03/21 14:11 DC Prazosin HCl (Minipress) 1 mg QHS PO 01/03/21 21:00 01/03/21 18:24 DC Prazosin HCl (Minipress) 1 mg QHS PO 01/05/21 21:00 01/16/21 09:56 DC 01/15/21 20:34 Prazosin HCl (Minipress) 1 mg QHS PO 01/16/21 21:00 01/17/21 09:38 DC 01/16/21 21:58 Prazosin HCl (Minipress) 1 mg QHS PO 01/17/21 21:00 01/23/21 06:49 DC 01/22/21 20:50 Prazosin HCl (Minipress) 1 mg QHS PO 02/10/21 21:00 02/20/21 20:56 Prazosin HCl (Minipress) 1 mg QHS PO 01/23/21 21:00 02/10/21 01:30 DC 02/09/21 21:02 Trazodone HCl (Desyrel) 50 mg QHS PO 01/04/21 21:00 01/16/21 09:56 DC 01/15/21 20:34 Trazodone HCl (Desyrel) 50 mg QHS PO 01/16/21 21:00 01/17/21 09:39 DC 01/16/21 21:58 Trazodone HCl (Desyrel) 50 mg QHS PO 01/17/21 21:00 01/23/21 06:49 DC 01/22/21 20:47 Trazodone HCl (Desyrel) 50 mg QHS PO 02/10/21 21:00 02/20/21 20:55 Trazodone HCl (Desyrel) 50 mg QHS PO 01/23/21 21:00 02/10/21 01:30 DC 02/09/21 20:59 Trazodone HCl (Desyrel) 50 mg QHS PRN PO INSOMNIA 02/10/21 00:30 02/10/21 01:23 DC Trazodone HCl (Desyrel) 50 mg QHSP PRN PO INSOMNIA 01/03/21 13:50 01/03/21 15:01 DC Trazodone HCl (Desyrel) 50 mg QHSP PRN PO sleep 01/23/21 10:35 Cancel Scheduled Aripiprazole (Aripiprazole) 30 Mg Tablet, 15 MG PO BID, (Reported) Benztropine Mesylate (Benztropine Mesylate) 0.5 Mg Tablet, 0.5 MG PO BID, (Reported) Calcium Carbonate/Vitamin D3 (Calcium 600-Vit D3 800 Tablet) 1 Each Tablet, 1 TAB PO DAILY, (Reported) Hydroxyzine Pamoate (Hydroxyzine Pamoate) 25 Mg Capsule, 25 MG PO DAILY, (Reported) Multivitamin (Multivitamins) 1 Each Tablet, 1 TAB PO DAILY, (Reported) Nystatin (Nystatin Powder) 15 Gm Powder, 1 APLCT TOP BID, (Reported) Oxcarbazepine (Oxcarbazepine) 600 Mg Tablet, 600 MG PO BID, (Reported) Prazosin Hcl (Prazosin HCl) 1 Mg Capsule, 1 MG PO QHS, (Reported) Scheduled PRN Acetaminophen (Acetaminophen) 500 Mg Tablet, 1,000 MG PO Q6H PRN for PAIN LEVEL 1-5, (Reported) Melatonin (Melatonin) 3 Mg Tablet, 3 MG PO QHS PRN for INSOMNIA, (Reported) Trazodone HCl (Trazodone HCl) 50 Mg Tablet, 50 MG PO QHS PRN for INSOMNIA, ( Reported) Allergies Coded Allergies: cariprazine (Verified Allergy, Intermediate, increased SI, 04/18/20) hydroxyzine (Verified Allergy, Intermediate, RASH, 01/03/21) ALLERGY IS TO HYDROXYZINE HCL; PAMOATE IS OKAY Penicillins (Verified Allergy, Mild, rash, 04/18/20) risperidone (Verified Allergy, Mild, RASH, 04/18/20) prednisone (Verified Adverse Reaction, Intermediate, anxiety, agitation, 04/18/20) quetiapine (Verified Adverse Reaction, Intermediate, OCULOGYRIC CRISIS, 04/18/20) brexpiprazole (Verified Adverse Reaction, Unknown, SUICIDAL, 08/22/20) KATHY JONES MD Feb 21, 2021 17:15
[2021-02-21] MEDS: traZODone 50 MG TAB PO SCH (22:01)
[2021-02-21] MEDS: PRAZOSIN 1 MG CAP PO SCH (22:01)
[2021-02-21] MEDS: LITHIUM CARBONATE 300 MG CAP PO SCH (22:01)
[2021-02-21] MEDS: clonazePAM 0.5 MG TAB PO SCH (22:02)
[2021-02-22 06:36] VITALS: BP 164/84
[2021-02-22] MEDS: OXcarbazepine 300 MG TAB PO SCH ×2 (09:40→22:07)
[2021-02-22] MEDS: MULTIVITAMINS/MINERALS THERAP 1 TAB PO SCH (09:41)
[2021-02-22] MEDS: ACETAMINOPHEN 500 MG TAB PO PRN (09:41)
[2021-02-22] MEDS: BENZTROPINE 0.5 MG TAB PO SCH ×2 (09:41→22:08)
[2021-02-22] MEDS: LITHIUM CARBONATE 300 MG CAP PO SCH ×2 (09:42→22:08)
[2021-02-22] MEDS: hydrOXYzine 25 MG TAB PO SCH ×2 (09:42→22:08)
[2021-02-22] MEDS: CALCIUM/VITAMIN D 500 MG TAB PO SCH (09:42)
[2021-02-22] MEDS: NYSTATIN 100,000 UNITS/GM TOPICAL PWD 15 GM TOP SCH ×2 (09:43→22:09)
[2021-02-22] MEDS: ARIPiprazole 15 MG TAB (AbiLIFY) PO SCH ×2 (09:46→22:07)
[2021-02-22] MEDS: PRAZOSIN 1 MG CAP PO SCH (22:07)
[2021-02-22] MEDS: clonazePAM 0.5 MG TAB PO SCH (22:08)
[2021-02-22] MEDS: traZODone 50 MG TAB PO SCH (22:08)
[2021-02-23 06:44] VITALS: BP 130/92
[2021-02-23] MEDS: NYSTATIN 100,000 UNITS/GM TOPICAL PWD 15 GM TOP SCH ×2 (09:03→20:51)
[2021-02-23] MEDS: OXcarbazepine 300 MG TAB PO SCH ×2 (09:04→20:50)
[2021-02-23] MEDS: ARIPiprazole 15 MG TAB (AbiLIFY) PO SCH ×2 (09:04→20:49)
[2021-02-23] MEDS: BENZTROPINE 0.5 MG TAB PO SCH ×2 (09:05→20:49)
[2021-02-23] MEDS: ACETAMINOPHEN 500 MG TAB PO PRN (09:05)
[2021-02-23] MEDS: MULTIVITAMINS/MINERALS THERAP 1 TAB PO SCH (09:05)
[2021-02-23] MEDS: CALCIUM/VITAMIN D 500 MG TAB PO SCH (09:05)
[2021-02-23] MEDS: hydrOXYzine 25 MG TAB PO SCH ×2 (09:05→20:50)
[2021-02-23] MEDS: LITHIUM CARBONATE 300 MG CAP PO SCH ×2 (09:06→20:58)
[2021-02-23] MEDS: clonazePAM 0.5 MG TAB PO SCH (20:49)
[2021-02-23] MEDS: traZODone 50 MG TAB PO SCH (20:50)
[2021-02-23] MEDS: PRAZOSIN 1 MG CAP PO SCH (20:51)
[2021-02-24 06:00] VITALS: BP 158/89
[2021-02-24] MEDS: LITHIUM CARBONATE 300 MG CAP PO SCH ×2 (08:49→19:46)
[2021-02-24] MEDS: CALCIUM/VITAMIN D 500 MG TAB PO SCH (08:50)
[2021-02-24] MEDS: BENZTROPINE 0.5 MG TAB PO SCH ×2 (08:50→19:46)
[2021-02-24] MEDS: ARIPiprazole 15 MG TAB (AbiLIFY) PO SCH ×2 (08:50→19:45)
[2021-02-24] MEDS: MULTIVITAMINS/MINERALS THERAP 1 TAB PO SCH (08:50)
[2021-02-24] MEDS: hydrOXYzine 25 MG TAB PO SCH ×2 (08:50→19:45)
[2021-02-24] MEDS: OXcarbazepine 300 MG TAB PO SCH ×2 (08:50→19:45)
[2021-02-24] MEDS: NYSTATIN 100,000 UNITS/GM TOPICAL PWD 15 GM TOP SCH ×2 (08:51→19:45)
[2021-02-24] MEDS: traZODone 50 MG TAB PO SCH (19:46)
[2021-02-24] MEDS: clonazePAM 0.5 MG TAB PO SCH (19:47)
[2021-02-24] MEDS: PRAZOSIN 1 MG CAP PO SCH (19:49)
[2021-02-25] MEDS: ARIPiprazole 15 MG TAB (AbiLIFY) PO SCH ×2 (09:11→21:49)
[2021-02-25] MEDS: BENZTROPINE 0.5 MG TAB PO SCH ×2 (09:11→21:50)
[2021-02-25] MEDS: LITHIUM CARBONATE 300 MG CAP PO SCH ×2 (09:11→21:50)
[2021-02-25] MEDS: CALCIUM/VITAMIN D 500 MG TAB PO SCH (09:12)
[2021-02-25] MEDS: MULTIVITAMINS/MINERALS THERAP 1 TAB PO SCH (09:12)
[2021-02-25] MEDS: OXcarbazepine 300 MG TAB PO SCH ×2 (09:12→21:49)
[2021-02-25] MEDS: NYSTATIN 100,000 UNITS/GM TOPICAL PWD 15 GM TOP SCH ×2 (09:12→21:51)
[2021-02-25] MEDS: hydrOXYzine 25 MG TAB PO SCH ×2 (09:13→21:49)
[2021-02-25] MEDS: clonazePAM 0.5 MG TAB PO SCH (21:49)
[2021-02-25] MEDS: PRAZOSIN 1 MG CAP PO SCH (21:49)
[2021-02-25] MEDS: traZODone 50 MG TAB PO SCH (21:50)
[2021-02-26 07:14] VITALS: BP 146/84
[2021-02-26] MEDS: OXcarbazepine 300 MG TAB PO SCH ×2 (09:13→20:30)
[2021-02-26] MEDS: ARIPiprazole 15 MG TAB (AbiLIFY) PO SCH ×2 (09:13→20:31)
[2021-02-26] MEDS: BENZTROPINE 0.5 MG TAB PO SCH ×2 (09:13→20:31)
[2021-02-26] MEDS: CALCIUM/VITAMIN D 500 MG TAB PO SCH (09:13)
[2021-02-26] MEDS: hydrOXYzine 25 MG TAB PO SCH ×2 (09:13→20:32)
[2021-02-26] MEDS: NYSTATIN 100,000 UNITS/GM TOPICAL PWD 15 GM TOP SCH ×2 (09:14→20:30)
[2021-02-26] MEDS: MULTIVITAMINS/MINERALS THERAP 1 TAB PO SCH (09:14)
[2021-02-26] MEDS: LITHIUM CARBONATE 300 MG CAP PO SCH ×2 (09:14→20:31)
[2021-02-26] MEDS: clonazePAM 0.5 MG TAB PO SCH (20:30)
[2021-02-26] MEDS: traZODone 50 MG TAB PO SCH (20:31)
[2021-02-26] MEDS: PRAZOSIN 1 MG CAP PO SCH (20:32)
[2021-02-27 06:36] LABS: HEMATOCRIT 40.2 % (36.0-47.0); MEAN CORPUSCULAR HEMOGLOBIN 27.8 pg (27.0-33.0); MEAN CORPUSCULAR HGB CONC 32.3 g/dl (32.0-36.5); MEAN CORPUSCULAR VOLUME 85.9 fl (80.0-96.0); PLATELET COUNT, AUTOMATED 226 10^3/uL (150-450); RED BLOOD COUNT 4.68 10^6/uL (4.00-5.40); WHITE BLOOD COUNT 11.5 10^3/uL (4.0-10.0)
[2021-02-27 06:37] VITALS: BP 155/82
[2021-02-27 07:03] LABS: ALBUMIN 3.2 GM/DL (3.2-5.2); ALT/SGPT 46 U/L (12-78); BILIRUBIN,TOTAL 0.2 MG/DL (0.2-1.0); BLOOD UREA NITROGEN 13 MG/DL (7-18); CALCIUM LEVEL 8.4 MG/DL (8.5-10.1); CARBON DIOXIDE LEVEL 24 MEQ/L (21-32); CHLORIDE LEVEL 111 MEQ/L (98-107); CREATININE FOR GFR 0.81 MG/DL (0.55-1.30); GLOMERULAR FILTRATION RATE > 60.0 (>60); GLUCOSE, FASTING 114 MG/DL (70-100); POTASSIUM SERUM 4.2 MEQ/L (3.5-5.1); SODIUM LEVEL 142 MEQ/L (136-145); TOTAL PROTEIN 6.5 GM/DL (6.4-8.2)
[2021-02-27] MEDS: ARIPiprazole 15 MG TAB (AbiLIFY) PO SCH ×2 (08:42→20:49)
[2021-02-27] MEDS: LITHIUM CARBONATE 300 MG CAP PO SCH ×2 (08:42→20:50)
[2021-02-27] MEDS: BENZTROPINE 0.5 MG TAB PO SCH ×2 (08:42→20:50)
[2021-02-27] MEDS: hydrOXYzine 25 MG TAB PO SCH ×2 (08:42→20:50)
[2021-02-27] MEDS: OXcarbazepine 300 MG TAB PO SCH ×2 (08:42→20:51)
[2021-02-27] MEDS: CALCIUM/VITAMIN D 500 MG TAB PO SCH (08:43)
[2021-02-27] MEDS: MULTIVITAMINS/MINERALS THERAP 1 TAB PO SCH (08:43)
[2021-02-27] MEDS: NYSTATIN 100,000 UNITS/GM TOPICAL PWD 15 GM TOP SCH ×2 (08:43→20:51)
--- NOTE | 2021-02-27 09:48 | IPNPDOC ---
Text Note Date of Service The patient was seen on 02/27/21. NOTE Subjective: Patient is a 35-year-old female with a PMHx of Autism spectrum disorder, Schizoaffective disorder, presented to the ER on 01/02 for a psychiatr ic evaluation. Patient was cleared psychiatry and was ultimately admitted to the hospital service for likely placement on 02/09. She had remained about ER, from 01/02-01/09. Patient was seen and examined at the bedside. Patient denies any chest pain, shortness of breath, palpitations, nausea, vomiting, abdominal pain, diarrhea, or urinary discomfort. Has been up ambulating without any difficulty. Objective: Vitals (See below) General: Patient is sitting up in sofa, appears to be comfortable, oriented x3 HEENT: Normocephalic, nontraumatic CVS: +S1S2 Lungs: Appears to be fair bilaterally without any evidence of crackles, wheezing or rhonchi Abdomen: Soft, nondistended, nontender Extremities: No evidence of lower extremity edema Assessment: Autism spectrum disorder Schizoaffective disorder s/p Suicidal ideation Inability to care for herself DVT prophylaxis; ambulation Plan: - Continue with current medications - Psychiatry was consulted last week Disposition: - PFS on case and looking into placement - c/w ALC status VS,Jun, I+O VS, Jun, I+O Laboratory Tests 02/27/21 06:18 Vital Signs Date Time Temp Pulse Resp B/P (MAP) Pulse Ox O2 Delivery O2 Flow Rate FiO2 02/27/21 06:37 97.5 121 21 155/82 (106) 97 Room Air I&O- Last 24 Hours up to 6 AM 02/27/21 06:00 Intake Total 960 ml Balance 960 ml BRIDGETT CENTENO MD Feb 27, 2021 09:48
[2021-02-27] MEDS: PRAZOSIN 1 MG CAP PO SCH (20:50)
[2021-02-27] MEDS: traZODone 50 MG TAB PO SCH (20:50)
[2021-02-27] MEDS: clonazePAM 0.5 MG TAB PO SCH (20:51)
[2021-02-28] MEDS: ARIPiprazole 15 MG TAB (AbiLIFY) PO SCH (09:00)
[2021-02-28] MEDS: LITHIUM CARBONATE 300 MG CAP PO SCH ×2 (09:00→20:35)
[2021-02-28] MEDS: BENZTROPINE 0.5 MG TAB PO SCH ×2 (09:00→20:32)
[2021-02-28] MEDS: CALCIUM/VITAMIN D 500 MG TAB PO SCH (09:00)
[2021-02-28] MEDS: MULTIVITAMINS/MINERALS THERAP 1 TAB PO SCH (09:01)
[2021-02-28] MEDS: hydrOXYzine 25 MG TAB PO SCH (09:01)
[2021-02-28] MEDS: OXcarbazepine 300 MG TAB PO SCH ×2 (09:02→20:35)
[2021-02-28] MEDS: NYSTATIN 100,000 UNITS/GM TOPICAL PWD 15 GM TOP SCH ×2 (09:02→20:35)
[2021-02-28 09:32] LABS: BASO # 0.1 10^3/uL (0.0-0.2); BASO % 0.5 % (0.0-1.0); EOS # 0.2 10^3/uL (0.0-0.5); EOS % 1.6 % (0.0-3.0); HEMATOCRIT 39.5 % (36.0-47.0); HEMOGLOBIN 12.9 g/dl (12.0-15.5); LYMPH # 1.1 10^3/uL (1.5-5.0); MEAN CORPUSCULAR HEMOGLOBIN 27.7 pg (27.0-33.0); MEAN CORPUSCULAR HGB CONC 32.7 g/dl (32.0-36.5); MEAN CORPUSCULAR VOLUME 84.9 fl (80.0-96.0); MONO # 0.7 10^3/uL (0.0-0.8); MONO % 6.7 % (2.0-8.0); NEUTROPHILS # 8.9 10^3/uL (1.5-8.5); NEUTROPHILS % 80.5 % (36.0-66.0); PLATELET COUNT, AUTOMATED 233 10^3/uL (150-450); RED BLOOD COUNT 4.65 10^6/uL (4.00-5.40)
[2021-02-28 10:08] LABS: ALBUMIN 3.4 GM/DL (3.2-5.2); ALT/SGPT 48 U/L (12-78); BILIRUBIN,TOTAL 0.2 MG/DL (0.2-1.0); BLOOD UREA NITROGEN 12 MG/DL (7-18); CALCIUM LEVEL 8.9 MG/DL (8.5-10.1); CARBON DIOXIDE LEVEL 24 MEQ/L (21-32); CHLORIDE LEVEL 105 MEQ/L (98-107); GLOMERULAR FILTRATION RATE > 60.0 (>60); GLUCOSE, FASTING 148 MG/DL (70-100); LITHIUM LEVEL 0.32 MEQ/L (0.60-1.20); MAGNESIUM LEVEL 1.9 MG/DL (1.8-2.4); SODIUM LEVEL 136 MEQ/L (136-145)
--- NOTE | 2021-02-28 15:30 | MHCRPDOC ---
[facility] Consultation Consultation DATE OF CONSULTATION: 02/28/21 CONSULTATION REQUESTED BY: Dr Benito REASON FOR CONSULTATION: Aggressive outbursts RELEVANT HISTORY: Grace is a 35 woman with a history of schizoaffective bipolar type, autism spectrum disorder, and major depressive disorder. She is currently admitted on a social placement awaiting a bed through [facility] for long- term residence. As such she is currently homeless and does not have a place to stay if she would be discharged from the hospital. Per the primary team that she had made statements of wanting to and had also threatened staff at various times. Grace admits that she has at times made the statements during this hospitalization, and she endorses that this is a frequent behavior for her that occurs when she becomes distressed. She denies having any current intent or plan to follow through on statements and is looking forward to being able to live in the community residence. She reports taking her medications as prescribed, and acknowledges that she was seen by Dr Bassett recently who recommended starting her on lithium. She feels that lithium so far has not worked, however this medication is only been administered for 2 days at this time. She does report having a lithium in the past and felt that although it been helpful she had had to stop it due to higher doses suppressing her thyroid function. She does admit to having a brief episode of suicidal ideation while she was on the phone with her mother earlier today, but states that after she hung up with her mother she listen to music and was able to calm herself using h er previously known and working coping skills. PAST PSYCHIATRIC HISTORY: Extensive psychiatric history with multiple admissions , the last admission was an November [address] [facility]. She sees a Dr. Bird through telepsychiatry services and spoke with her regular therapist, David, 2 days ago via telephone. She currently takes Abilify 30 mg total daily dose, oxcarbazepine 600 mg twice daily, prazosin, and trazodone for sleep. She feels that these medications have been helpful for her, recently she was started on the 150 mg twice daily of lithium carbonate for reducing suicidal urges and 0.5 mg at night of clonazepam to help with sleep. Denies a history of past attempts of suicide but reports extensive history of past self injury including cutting behaviors within the past 2 months. Denies any attempts at self injury or suicide while in the hospital currently Patient reported to me that she quotes feels like she is drowning and stuck under water. She feels anxious and states it it may be related to her menstrual periods she feels depressed and it was noted that her legs leg was shaking all the way throughout the interview she states she gets off-and-on depression and crying she rated her depressions throughout the last few days from February 21 to February 28 with the highest ratings being the sixth and the seventh patient states she overdosed and was in the ER in December 19 and states she has told people that there is voices in her head telling her to kill herself. MENTAL STATUS EXAMINATION: Patient is a 35-year old female, who is on the medical floor awaiting placement. Speech is normal. Language skills are no disturbance. Thought processes including: Numerous psychiatric complaints of anxiety and suicidal thinking. Thought content: Concerned with her symptoms. Abstract reasoning, and computation: Poor abstraction. Description of associations: No loose associations. Description of abnormal or psychotic thoughts: States her voices are in her head telling her to kill herself. Judgment: Poor. Insight: Poor. Orientation to x3. Recent and remote memory: Intact. Attention span and concentration: Intact. Language: No disturbance Fund of knowledge: Limited. Mood: Anxious. Affect: Anxious. DIAGNOSIS: 1. Though it seems that numerous people have diagnosed patient has autistic spectrum today she certainly presents from her history as having borderline personality. PLAN: 1. I discussed the case with Dr. Benito and felt that in terms of her medication since she seems to be having explosive episodes up to 3 times a day that her Atarax be increased to 50 mg twice twice a day and her p prazosin to 3 mg at bedtime and 1 mg in the morning certainly her Abilify does not seem to be effective. Vital Signs Vital Signs Date Time Temp Pulse Resp B/P (MAP) Pulse Ox O2 Delivery O2 Flow Rate FiO2 02/27/21 06:37 97.5 121 21 155/82 (106) 97 Room Air Laboratory Data 24H Labs Laboratory Tests 2 02/28/21 09:11: Immature Granulocyte % (Auto) 0.7, Neutrophils (%) (Auto) 80.5H, Lymphocytes (%) (Auto) 10.0L, Monocytes (%) (Auto) 6.7, Eosinophils (%) (Auto) 1.6, Basophils (%) (Auto) 0.5, Neutrophils # (Auto) 8.9H, Lymphocytes # (Auto) 1.1L, Monocytes # (Auto) 0.7, Eosinophils # (Auto) 0.2, Basophils # (Auto) 0.1, Nucleated Red Blood Cells % (auto) 0.0, Anion Gap 7L, Glomerular Filtration Rate > 60.0, Calcium Level 8.9, Magnesium Level 1.9, Total Bilirubin 0.2, Aspartate Amino Transf (AST/SGOT) 19, Alanine Aminotransferase (ALT/SGPT) 48, Alkaline Phosphatase 82, Total Protein 7.0, Albumin 3.4, Albumin/Globulin Ratio 0.9L, [place] Level 0.32L Home Medications Current Medications Current Medications Medications (Trade) Dose Ordered Sig/Cory Route PRN Reason Start Time Stop Time Status Last Admin Dose Admin Acetaminophen (Tylenol Tab) 650 mg Q4HP PRN PO MILD PAIN or TEMP > 101 01/04/21 19:45 01/16/21 09:56 DC 01/11/21 21:06 Acetaminophen (Tylenol Tab) 650 mg Q4HP PRN PO PAIN LEVEL 5-10 01/16/21 12:05 01/17/21 09:34 DC Acetaminophen (Tylenol Tab) 650 mg Q4HP PRN PO PAIN LEVEL 5-10 01/17/21 09:35 01/23/21 06:49 DC 01/22/21 20:52 Acetaminophen (Tylenol Tab) 650 mg Q6HP PRN PO HEADACHE or MILD DISCOMFORT 01/03/21 13:50 01/03/21 15:01 DC Acetaminophen (Tylenol Tab) 1,000 mg Q6HP PRN PO MODERATE PAIN (PS 5-7) 02/10/21 01:20 02/23/21 09:05 Acetaminophen (Tylenol Tab) 1,000 mg Q6HP PRN PO PAIN LEVEL 5-7 01/23/21 10:35 02/10/21 01:24 DC 01/29/21 05:57 Al Hydrox/Mg Hydrox/Simethicone (Mylanta) 30 ml DAILY PRN PO DYSPEPSIA 02/09/21 22:00 02/11/21 22:40 Al Hydrox/Mg Hydrox/Simethicone (Mylanta) 30 ml Q4HP PRN PO HEARTBURN/INDIGESTION 01/03/21 13:50 01/03/21 15:01 DC Aripiprazole (AbiLIFY) 15 mg BID PO 01/03/21 09:00 01/03/21 14:11 DC 01/03/21 09:32 Aripiprazole (AbiLIFY) 15 mg BID PO 01/03/21 21:00 01/03/21 18:24 DC Aripiprazole (AbiLIFY) 15 mg BID PO 01/04/21 09:05 01/16/21 09:56 DC 01/16/21 09:21 Aripiprazole (AbiLIFY) 15 mg BID PO 01/16/21 21:00 01/17/21 09:38 DC 01/16/21 21:58 Aripiprazole (AbiLIFY) 15 mg BID PO 01/17/21 09:00 01/23/21 06:49 DC 01/22/21 20:51 Aripiprazole (AbiLIFY) 15 mg BID PO 02/10/21 09:00 02/28/21 09:00 Aripiprazole (AbiLIFY) 15 mg BID PO 01/23/21 09:00 02/10/21 01:24 DC 02/09/21 20:58 Aripiprazole (AbiLIFY) 30 mg QHS PO 01/04/21 21:00 01/04/21 09:21 DC Benztropine Mesylate (Cogentin) 0.5 mg BID PO 01/03/21 09:00 01/03/21 14:11 DC 01/03/21 09:32 Benztropine Mesylate (Cogentin) 0.5 mg BID PO 01/03/21 21:00 01/03/21 18:24 DC Benztropine Mesylate (Cogentin) 0.5 mg BID PO 01/04/21 09:05 01/16/21 09:56 DC 01/16/21 09:21 Benztropine Mesylate (Cogentin) 0.5 mg BID PO 01/16/21 21:00 01/17/21 09:38 DC 01/16/21 21:58 Benztropine Mesylate (Cogentin) 0.5 mg BID PO 01/17/21 09:00 01/23/21 06:49 DC 01/22/21 20:50 Benztropine Mesylate (Cogentin) 0.5 mg BID PO 02/10/21 09:00 02/28/21 09:00 Benztropine Mesylate (Cogentin) 0.5 mg BID PO 01/23/21 09:00 02/10/21 01:25 DC 02/09/21 20:59 Benztropine Mesylate (Cogentin) 0.5 mg QHS PO 01/03/21 21:00 01/04/21 09:21 DC Calcium/Vitamin D (Oscal D) 500 mg DAILY PO 01/03/21 09:00 01/03/21 14:11 DC 01/03/21 09:32 Calcium/Vitamin D (Oscal D) 500 mg DAILY PO 01/12/21 09:00 01/16/21 09:56 DC 01/16/21 09:21 Calcium/Vitamin D (Oscal D) 500 mg DAILY PO 01/17/21 09:00 01/17/21 09:38 DC 01/23/21 10:28 Calcium/Vitamin D (Oscal D) 500 mg DAILY PO 01/17/21 09:00 01/23/21 06:49 DC 01/22/21 08:18 Calcium/Vitamin D (Oscal D) 500 mg QAM PO 02/10/21 09:00 02/28/21 09:00 Calcium/Vitamin D (Oscal D) 500 mg QAM PO 01/23/21 09:00 02/10/21 01:26 DC 02/09/21 08:33 Clonazepam (KlonoPIN) 0.5 mg QHS PO 02/18/21 21:00 02/27/21 20:51 Home Med (Med Rec Complete!) ASDIRECTED XX 01/03/21 12:45 01/03/21 12:47 DC Hydroxyzine HCl (Atarax) 25 mg BID PO 01/04/21 09:05 01/16/21 09:56 DC 01/16/21 09:21 Hydroxyzine HCl (Atarax) 25 mg BID PO 01/16/21 21:00 01/17/21 09:38 DC 01/16/21 21:58 Hydroxyzine HCl (Atarax) 25 mg BID PO 01/17/21 09:00 01/23/21 06:49 DC 01/22/21 20:50 Hydroxyzine HCl (Atarax) 25 mg BID PO 02/10/21 09:00 9/8/21 09:01 Hydroxyzine HCl (Atarax) 25 mg BID PO 01/23/21 21:00 02/10/21 01:26 DC 02/09/21 20:59 Hydroxyzine HCl (Atarax) 25 mg DAILY PO 01/04/21 09:00 01/03/21 18:24 DC Hydroxyzine HCl (Atarax) 25 mg DAILY PO 01/23/21 09:00 01/23/21 10:38 DC 01/23/21 10:28 [place] Carbonate ([place] Carbonate) 150 mg BID PO 02/18/21 09:00 02/21/21 18:58 DC 02/21/21 10:14 [place] Carbonate ([place] Carbonate) 300 mg BID PO 02/21/21 21:00 02/28/21 09:00 Lorazepam (Ativan) 2 mg STAT STAT PO 01/11/21 13:12 01/11/21 13:13 DC 01/11/21 13:46 Lorazepam (Ativan) 2 mg STAT STAT PO 01/19/21 09:27 01/19/21 09:28 DC 01/19/21 09:35 Lorazepam (Ativan) 2 mg STAT STAT PO 01/20/21 15:51 01/20/21 15:52 DC 01/20/21 16:20 Magnesium Hydroxide (Milk Of Magnesia) 30 ml DAILY PRN PO CONSTIPATION 02/09/21 22:00 Magnesium Hydroxide (Milk Of Magnesia) 30 ml DAILYPRN PRN PO CONSTIPATION 01/03/21 13:50 01/03/21 15:01 DC Multivitamins (Theragram-M) 1 tab DAILY PO 01/03/21 09:00 01/03/21 14:11 DC 01/03/21 09:32 Multivitamins (Theragram-M) 1 tab DAILY PO 01/03/21 09:00 01/03/21 18:24 DC Multivitamins (Theragram-M) 1 tab DAILY PO 01/12/21 09:00 01/16/21 09:56 DC 01/16/21 09:21 Multivitamins (Theragram-M) 1 tab DAILY PO 01/17/21 09:00 01/17/21 09:39 DC Multivitamins (Theragram-M) 1 tab DAILY PO 01/17/21 09:00 01/23/21 06:49 DC 01/22/21 08:18 Multivitamins (Theragram-M) 1 tab DAILY PO 02/10/21 09:00 02/28/21 09:01 Multivitamins (Theragram-M) 1 tab DAILY PO 01/23/21 09:00 02/10/21 01:27 DC 02/09/21 08:32 Nystatin (Mycostatin Powder, Nystop) 1 dose BID TOP 02/15/21 14:00 02/28/21 09:02 Nystatin (Mycostatin Powder, Nystop) apply to breast folds... BIDP PRN TOP RASH 02/12/21 19:35 02/15/21 12:40 DC Oxcarbazepine (Trileptal) 600 mg BID PO 01/03/21 09:00 01/03/21 14:11 DC 01/03/21 09:32 Oxcarbazepine (Trileptal) 600 mg BID PO 01/03/21 21:00 01/03/21 18:24 DC Oxcarbazepine (Trileptal) 600 mg BID PO 01/05/21 21:00 01/16/21 09:56 DC 01/16/21 09:21 Oxcarbazepine (Trileptal) 600 mg BID PO 01/16/21 21:00 01/17/21 09:39 DC 01/16/21 21:58 Oxcarbazepine (Trileptal) 600 mg BID PO 01/17/21 09:00 01/23/21 06:49 DC 01/22/21 20:51 Oxcarbazepine (Trileptal) 600 mg BID PO 02/10/21 09:00 02/28/21 09:02 Oxcarbazepine (Trileptal) 600 mg BID PO 01/23/21 09:00 02/10/21 01:28 DC 02/09/21 20:59 Prazosin HCl (Minipress) 1 mg QHS PO 01/03/21 21:00 01/03/21 14:11 DC Prazosin HCl (Minipress) 1 mg QHS PO 01/03/21 21:00 01/03/21 18:24 DC Prazosin HCl (Minipress) 1 mg QHS PO 01/05/21 21:00 01/16/21 09:56 DC 01/15/21 20:34 Prazosin HCl (Minipress) 1 mg QHS PO 01/16/21 21:00 01/17/21 09:38 DC 01/16/21 21:58 Prazosin HCl (Minipress) 1 mg QHS PO 01/17/21 21:00 01/23/21 06:49 DC 01/22/21 20:50 Prazosin HCl (Minipress) 1 mg QHS PO 02/10/21 21:00 02/27/21 20:50 Prazosin HCl (Minipress) 1 mg QHS PO 01/23/21 21:00 02/10/21 01:30 DC 02/09/21 21:02 Trazodone HCl (Desyrel) 50 mg QHS PO 01/04/21 21:00 01/16/21 09:56 DC 01/15/21 20:34 Trazodone HCl (Desyrel) 50 mg QHS PO 01/16/21 21:00 01/17/21 09:39 DC 01/16/21 21:58 Trazodone HCl (Desyrel) 50 mg QHS PO 01/17/21 21:00 01/23/21 06:49 DC 01/22/21 20:47 Trazodone HCl (Desyrel) 50 mg QHS PO 02/10/21 21:00 02/27/21 20:50 Trazodone HCl (Desyrel) 50 mg QHS PO 01/23/21 21:00 02/10/21 01:30 DC 02/09/21 20:59 Trazodone HCl (Desyrel) 50 mg QHS PRN PO INSOMNIA 02/10/21 00:30 02/10/21 01:23 DC Trazodone HCl (Desyrel) 50 mg QHSP PRN PO INSOMNIA 01/03/21 13:50 01/03/21 15:01 DC Trazodone HCl (Desyrel) 50 mg QHSP PRN PO sleep 01/23/21 10:35 Cancel Scheduled Aripiprazole (Aripiprazole) 30 Mg Tablet, 15 MG PO BID, (Reported) Benztropine Mesylate (Benztropine Mesylate) 0.5 Mg Tablet, 0.5 MG PO BID, (Reported) Calcium Carbonate/Vitamin D3 (Calcium 600-Vit D3 800 Tablet) 1 Each Tablet, 1 TAB PO DAILY, (Reported) Hydroxyzine Pamoate (Hydroxyzine Pamoate) 25 Mg Capsule, 25 MG PO DAILY, (Reported) Multivitamin (Multivitamins) 1 Each Tablet, 1 TAB PO DAILY, (Reported) Nystatin (Nystatin Powder) 15 Gm Powder, 1 APLCT TOP BID, (Reported) Oxcarbazepine (Oxcarbazepine) 600 Mg Tablet, 600 MG PO BID, (Reported) Prazosin Hcl (Prazosin HCl) 1 Mg Capsule, 1 MG PO QHS, (Reported) Scheduled PRN Acetaminophen (Acetaminophen) 500 Mg Tablet, 1,000 MG PO Q6H PRN for PAIN LEVEL 1-5, (Reported) Melatonin (Melatonin) 3 Mg Tablet, 3 MG PO QHS PRN for INSOMNIA, (Reported) Trazodone HCl (Trazodone HCl) 50 Mg Tablet, 50 MG PO QHS PRN for INSOMNIA, (Reported) Allergies Coded Allergies: cariprazine (Verified Allergy, Intermediate, increased SI, 04/18/20) hydroxyzine (Verified Allergy, Intermediate, RASH, 01/03/21) ALLERGY IS TO HYDROXYZINE HCL; PAMOATE IS OKAY Penicillins (Verified Allergy, Mild, rash, 04/18/20) risperidone (Verified Allergy, Mild, RASH, 04/18/20) prednisone (Verified Adverse Reaction, Intermediate, anxiety, agitation, 04/18/20) quetiapine (Verified Adverse Reaction, Intermediate, OCULOGYRIC CRISIS, 04/18/20) brexpiprazole (Verified Adverse Reaction, Unknown, SUICIDAL, 08/22/20) KATHY JOSHI MD Feb 28, 2021 15:30
[2021-02-28] MEDS: hydrOXYzine 50 MG TAB PO SCH (20:32)
[2021-02-28] MEDS: clonazePAM 0.5 MG TAB PO SCH (20:34)
[2021-02-28] MEDS: traZODone 50 MG TAB PO SCH (20:35)
[2021-02-28] MEDS: PRAZOSIN 1 MG CAP PO SCH (20:40)
[2021-03-01 06:00] VITALS: BP 117/70
[2021-03-01] MEDS: CALCIUM/VITAMIN D 500 MG TAB PO SCH (10:12)
[2021-03-01] MEDS: hydrOXYzine 50 MG TAB PO SCH ×2 (10:12→20:38)
[2021-03-01] MEDS: LITHIUM CARBONATE 300 MG CAP PO SCH ×2 (10:13→20:38)
[2021-03-01] MEDS: MULTIVITAMINS/MINERALS THERAP 1 TAB PO SCH (10:15)
[2021-03-01] MEDS: BENZTROPINE 0.5 MG TAB PO SCH ×2 (10:17→20:39)
[2021-03-01] MEDS: PRAZOSIN 1 MG CAP PO SCH ×2 (10:18→20:37)
[2021-03-01] MEDS: NYSTATIN 100,000 UNITS/GM TOPICAL PWD 15 GM TOP SCH ×2 (10:19→20:33)
[2021-03-01] MEDS: OXcarbazepine 300 MG TAB PO SCH ×2 (10:21→20:38)
[2021-03-01] MEDS: hydrOXYzine 25 MG TAB PO PRN (13:54)
[2021-03-01] MEDS: ARIPiprazole 10 MG TAB PO SCH (20:38)
[2021-03-01] MEDS: clonazePAM 0.5 MG TAB PO SCH (20:39)
[2021-03-01] MEDS: traZODone 50 MG TAB PO SCH (20:39)
[2021-03-02 05:28] VITALS: BP 164/83
[2021-03-02] MEDS: OXcarbazepine 300 MG TAB PO SCH ×2 (08:50→20:27)
[2021-03-02] MEDS: MULTIVITAMINS/MINERALS THERAP 1 TAB PO SCH (08:50)
[2021-03-02] MEDS: LITHIUM CARBONATE 300 MG CAP PO SCH ×2 (08:50→20:28)
[2021-03-02] MEDS: hydrOXYzine 50 MG TAB PO SCH ×2 (08:50→20:28)
[2021-03-02] MEDS: CALCIUM/VITAMIN D 500 MG TAB PO SCH (08:51)
[2021-03-02] MEDS: ARIPiprazole 10 MG TAB PO SCH ×2 (08:51→20:27)
[2021-03-02] MEDS: NYSTATIN 100,000 UNITS/GM TOPICAL PWD 15 GM TOP SCH ×2 (08:51→20:29)
[2021-03-02] MEDS: PRAZOSIN 1 MG CAP PO SCH ×2 (08:53→20:28)
[2021-03-02] MEDS: BENZTROPINE 0.5 MG TAB PO SCH ×2 (08:53→20:28)
[2021-03-02] MEDS: clonazePAM 0.5 MG TAB PO SCH (20:26)
[2021-03-02] MEDS: traZODone 50 MG TAB PO SCH (20:28)
[2021-03-03] MEDS: NYSTATIN 100,000 UNITS/GM TOPICAL PWD 15 GM TOP SCH ×2 (08:57→21:30)
[2021-03-03] MEDS: ARIPiprazole 10 MG TAB PO SCH ×2 (08:57→21:30)
[2021-03-03] MEDS: BENZTROPINE 0.5 MG TAB PO SCH ×2 (08:58→21:31)
[2021-03-03] MEDS: LITHIUM CARBONATE 300 MG CAP PO SCH ×2 (08:58→21:31)
[2021-03-03] MEDS: CALCIUM/VITAMIN D 500 MG TAB PO SCH (08:58)
[2021-03-03] MEDS: MULTIVITAMINS/MINERALS THERAP 1 TAB PO SCH (08:58)
[2021-03-03] MEDS: PRAZOSIN 1 MG CAP PO SCH ×2 (09:03→21:32)
[2021-03-03] MEDS: hydrOXYzine 50 MG TAB PO SCH ×2 (09:04→21:32)
[2021-03-03] MEDS: OXcarbazepine 300 MG TAB PO SCH ×2 (09:04→21:30)
[2021-03-03] MEDS: hydrOXYzine 25 MG TAB PO PRN (12:01)
[2021-03-03] MEDS: clonazePAM 0.5 MG TAB PO SCH (21:30)
[2021-03-03] MEDS: traZODone 50 MG TAB PO SCH (21:33)
[2021-03-04] MEDS: OXcarbazepine 300 MG TAB PO SCH ×2 (08:45→20:33)
[2021-03-04] MEDS: NYSTATIN 100,000 UNITS/GM TOPICAL PWD 15 GM TOP SCH ×2 (08:45→20:32)
[2021-03-04] MEDS: CALCIUM/VITAMIN D 500 MG TAB PO SCH (08:45)
[2021-03-04] MEDS: MULTIVITAMINS/MINERALS THERAP 1 TAB PO SCH (08:45)
[2021-03-04] MEDS: ARIPiprazole 10 MG TAB PO SCH ×2 (08:46→20:33)
[2021-03-04] MEDS: LITHIUM CARBONATE 300 MG CAP PO SCH ×2 (08:48→20:33)
[2021-03-04] MEDS: PRAZOSIN 1 MG CAP PO SCH ×2 (08:48→20:36)
[2021-03-04] MEDS: hydrOXYzine 50 MG TAB PO SCH ×2 (08:48→20:33)
[2021-03-04] MEDS: BENZTROPINE 0.5 MG TAB PO SCH ×2 (08:48→20:33)
[2021-03-04 14:00] VITALS: BP 160/88
[2021-03-04] MEDS: traZODone 50 MG TAB PO SCH (20:33)
[2021-03-04] MEDS: clonazePAM 0.5 MG TAB PO SCH (20:33)
[2021-03-05] MEDS: NYSTATIN 100,000 UNITS/GM TOPICAL PWD 15 GM TOP SCH ×2 (08:21→20:13)
[2021-03-05] MEDS: LITHIUM CARBONATE 300 MG CAP PO SCH ×2 (08:22→20:12)
[2021-03-05] MEDS: BENZTROPINE 0.5 MG TAB PO SCH ×2 (08:22→20:11)
[2021-03-05] MEDS: CALCIUM/VITAMIN D 500 MG TAB PO SCH (08:22)
[2021-03-05] MEDS: ARIPiprazole 10 MG TAB PO SCH ×2 (08:22→20:11)
[2021-03-05] MEDS: MULTIVITAMINS/MINERALS THERAP 1 TAB PO SCH (08:23)
[2021-03-05] MEDS: OXcarbazepine 300 MG TAB PO SCH ×2 (08:23→20:09)
[2021-03-05] MEDS: PRAZOSIN 1 MG CAP PO SCH ×2 (08:23→20:11)
[2021-03-05] MEDS: hydrOXYzine 50 MG TAB PO SCH ×2 (08:24→20:10)
[2021-03-05] MEDS: ACETAMINOPHEN 500 MG TAB PO PRN (10:19)
[2021-03-05] MEDS: hydrOXYzine 25 MG TAB PO PRN (17:09)
[2021-03-05] MEDS: traZODone 50 MG TAB PO SCH (20:12)
[2021-03-05] MEDS: clonazePAM 0.5 MG TAB PO SCH (20:12)
[2021-03-06 05:49] VITALS: BP 171/80
[2021-03-06] MEDS: CALCIUM/VITAMIN D 500 MG TAB PO SCH (08:03)
[2021-03-06] MEDS: OXcarbazepine 300 MG TAB PO SCH ×2 (08:03→20:27)
[2021-03-06] MEDS: BENZTROPINE 0.5 MG TAB PO SCH ×2 (08:03→20:28)
[2021-03-06] MEDS: PRAZOSIN 1 MG CAP PO SCH ×2 (08:04→20:27)
[2021-03-06] MEDS: hydrOXYzine 50 MG TAB PO SCH ×2 (08:04→20:28)
[2021-03-06] MEDS: MULTIVITAMINS/MINERALS THERAP 1 TAB PO SCH (08:04)
[2021-03-06] MEDS: LITHIUM CARBONATE 300 MG CAP PO SCH ×2 (08:04→20:29)
[2021-03-06] MEDS: NYSTATIN 100,000 UNITS/GM TOPICAL PWD 15 GM TOP SCH ×2 (08:05→20:29)
[2021-03-06] MEDS: ARIPiprazole 10 MG TAB PO SCH ×2 (08:05→20:28)
[2021-03-06] MEDS: ACETAMINOPHEN 500 MG TAB PO PRN (10:26)
[2021-03-06 20:00] VITALS: BP 146/88
[2021-03-06] MEDS: clonazePAM 0.5 MG TAB PO SCH (20:27)
[2021-03-06] MEDS: traZODone 50 MG TAB PO SCH (20:28)
[2021-03-07 06:40] VITALS: BP 165/72
[2021-03-07] MEDS: CALCIUM/VITAMIN D 500 MG TAB PO SCH (08:24)
[2021-03-07] MEDS: OXcarbazepine 300 MG TAB PO SCH ×2 (08:24→20:37)
[2021-03-07] MEDS: MULTIVITAMINS/MINERALS THERAP 1 TAB PO SCH (08:24)
[2021-03-07] MEDS: hydrOXYzine 50 MG TAB PO SCH ×2 (08:25→20:36)
[2021-03-07] MEDS: LITHIUM CARBONATE 300 MG CAP PO SCH ×2 (08:25→20:36)
[2021-03-07] MEDS: BENZTROPINE 0.5 MG TAB PO SCH ×2 (08:25→20:38)
[2021-03-07] MEDS: NYSTATIN 100,000 UNITS/GM TOPICAL PWD 15 GM TOP SCH ×2 (08:28→20:38)
[2021-03-07] MEDS: PRAZOSIN 1 MG CAP PO SCH ×2 (08:28→20:35)
[2021-03-07] MEDS: hydrOXYzine 25 MG TAB PO PRN (11:44)
--- NOTE | 2021-03-07 15:53 | IPNPDOC ---
Text Note Date of Service The patient was seen on 03/07/21. NOTE Subjective: -Agitated this morning but later quite apologetic and redirectable. Unfortunately this was after a code-25 was called for her being aggressive with nursing staff and putting them at risk for bodily harm -When i spoke with Grace she tells me that she feels worse since her abilify was reduced and is hearing voices and is labile and "edgy" She is upset that Dr. Fernandez reduced her abilify and asking to speak with psychiatry. She is however insistent that she does not want to go to the [facility]. -Spoke with [facility] management and she will pass on message for Dr. Packer to see her tomorrow Objective: Vitals: See below General: Patient is sitting up in sofa, appears to be comfortable, oriented x3, initially agitate, but was calm by the end of our visit. Nursing at bedside HEENT: Normocephalic, nontraumatic CVS: +S1S2 Lungs: Appears to be fair bilaterally without any evidence of crackles, wheezing or rhonchi Abdomen: Soft, nondistended, nontender Extremities: No evidence of lower extremity edema Assessment: 35 yo W with multiple psychiatric diagnoses who is ALC on medicine pending placement. Autism spectrum disorder Schizoaffective disorder s/p Suicidal ideation Inability to care for herself DVT prophylaxis; ambulation Plan: - Continue with current medications - Psychiatry to see her tomorrow for medication adjustments Disposition: - PFS on case and looking into placement - c/w ALC status VS,Fishbone, I+O VS, Fishbone, I+O Vital Signs Date Time Temp Pulse Resp B/P (MAP) Pulse Ox O2 Delivery O2 Flow Rate FiO2 03/07/21 08:28 154/90 03/07/21 06:40 97.4 68 19 98 Room Air 03/06/21 05:49 I&O- Last 24 Hours up to 6 AM 03/07/21 06:00 Intake Total 990 ml Output Total 0 ml Balance 990 ml ANGELA WILLAMS MD Mar 07, 2021 15:53
[2021-03-07] MEDS ORDERED: hydrOXYzine 25 MG TAB PO ONE (16:15)
[2021-03-07] MEDS: clonazePAM 0.5 MG TAB PO SCH (20:37)
[2021-03-07] MEDS: traZODone 50 MG TAB PO SCH (20:38)
[2021-03-08] MEDS: LITHIUM CARBONATE 300 MG CAP PO SCH ×2 (08:54→20:41)
[2021-03-08] MEDS: hydrOXYzine 50 MG TAB PO SCH ×2 (08:54→20:41)
[2021-03-08] MEDS: BENZTROPINE 0.5 MG TAB PO SCH ×2 (08:54→20:41)
[2021-03-08] MEDS: OXcarbazepine 300 MG TAB PO SCH ×2 (09:06→20:41)
[2021-03-08] MEDS: PRAZOSIN 1 MG CAP PO SCH ×2 (09:06→20:40)
[2021-03-08] MEDS: CALCIUM/VITAMIN D 500 MG TAB PO SCH (09:06)
[2021-03-08] MEDS: MULTIVITAMINS/MINERALS THERAP 1 TAB PO SCH (09:06)
[2021-03-08] MEDS: NYSTATIN 100,000 UNITS/GM TOPICAL PWD 15 GM TOP SCH ×2 (09:07→20:39)
--- NOTE | 2021-03-08 12:39 | IPNPDOC ---
Text Note Date of Service The patient was seen on 03/08/21. NOTE Subjective: -Agitated this morning and holding her hands at her neck threatening self harm. Now has 1:1 sitter. Yesterday later found out that she had reported that she had tried to commit suicide on 03/06 overnight -Spoke with Dr. Packer this AM about management and potential transfer to the [facility], will see her this mid PM Objective: Vitals: See below General: Patient is sitting up in sofa, agitated, but redirectable HEENT: Normocephalic, nontraumatic CVS: +S1S2 Lungs: Appears to be fair bilaterally without any evidence of crackles, wheezing or rhonchi Abdomen: Soft, nondistended, nontender Extremities: No evidence of lower extremity edema Assessment: 35 yo W with multiple psychiatric diagnoses who is ALC on medicine pending placement. Autism spectrum disorder Schizoaffective disorder s/p Suicidal ideation Inability to care for herself DVT prophylaxis; ambulation Plan: - Continue with current medications - Psychiatry to see her this after for medication optimization and recommendations Disposition: - PFS on case and looking into placement VS,Fishbone, I+O VS, Fishbone, I+O Vital Signs Date Time Temp Pulse Resp B/P (MAP) Pulse Ox O2 Delivery O2 Flow Rate FiO2 03/08/21 09:06 154/82 03/07/21 06:40 97.4 68 19 98 Room Air 03/06/21 05:49 I&O- Last 24 Hours up to 6 AM 03/08/21 06:00 Intake Total 1920 ml Balance 1920 ml ANGELA WILLAMS MD Mar 08, 2021 09:31
--- NOTE | 2021-03-08 17:25 | MHIPNPDOC ---
[facility] Progress Note Progress Note DATE OF SERVICE: 03/08/21 HISTORY: Consult requested by Dr. Majano due to increased suicidal ideation by patient, and reported suicide attempt 2 days ago. Spoke with Grace who was more labile today than when I spoke with her on 02/22/2016. She endorsed that she has been feeling more unstable as her Abilify dose has been decreasing and has found it harder to control her impulses or thoughts. She is chronically suicidal, but states that 3 nights ago now she does not that she wrapped a blanket around her neck and tried to choke herself, this resulted in her nearly blacking out and nearly vomiting. She told staff about the event and was placed on a one-to-one sitter. Her mother has since brought in a list of medications that Grace has taken over her lifetime along with a record of the reactions that she has had, the use of Abilify has provide the most long-term stability for Grace as such it would seem reasonable to reincrease this medication. [place] appears to have not been helpful in the past and at higher doses resulted in her entering a hypothyroid state. At low doses it would be reasonable to maintain for management of suicidal ideation, of note she is not taking any medications for primary treatment of depression. VITAL SIGNS: See below. NEW TEST RESULTS: [place] level on 02/29/2016 was 0.38. CURRENT MEDICATIONS: See below. MENTAL STATUS EXAMINATION: Patient is a 35-year old female, who is dressed in a hoodie in the dark close. Speech: Is loud, but not pressured, with regular rate and rhythm. Language skills are intact. Thought processes including: Logical, linear, goal-directed. Thought content: Mostly is concerned about not having to go to [facility], is regretful of her decision to attempt suicide, feels that she has become more unstable since the Abilify was decreased. Abstract reasoning, and computation: Intact. Description of associations: Linear. Description of abnormal or psychotic thoughts: Chronically suicidal without current plan or intent, no homicidal ideation, no AVH reported, did not appear internally preoccupied during interview. Judgment: Poor. Insight: Fair. Orientation: X3. Recent and remote memory: Intact. Attention span and concentration: Intact. Language: Fluent. Fund of knowledge: Appropriate. Mood: Depressed and anxious. Affect: Anxious, constricted, congruent to stated mood and thought content. DIAGNOSES: 1. Major depressive disorder, recurrent, severe. 2. Autism spectrum disorder. 3. Unspecified neurocognitive disorder. ASSESSMENT: Audelia appears slightly more unstable than the last time she was interviewed by myself, this appears to be temporally linked to the reduction in her Abilify. I would recommend increasing the Abilify over the next several days back to her original dose as it does appear to have done more than was previously thought. Additionally she may benefit from starting a medication for depression. After reviewing her chart and the information provided by her mother Grace has never been on and SNRI before. At present she still does not meet criteria for an inpatient admission for psychiatry. Additionally doing so would further delay any placement opportunities as part of her level to screen. She was able to manage her chronic suicidal thoughts with a higher dose of Abilify and did not act upon them, she is also willing to start medication targeted specifically for treatment of her depression. MANAGEMENT PLAN: Increase Abilify to 10 mg twice daily for 3 days, then increase to 50 mg twice daily. May wish to consider initiating venlafaxine ER 37.5 mg for 3 days then 75 mg daily, would recommend doing this after increasing the Abilify. TIME SPENT: 35 minutes. Vital Signs Vital Signs Date Time Temp Pulse Resp B/P (MAP) Pulse Ox O2 Delivery O2 Flow Rate FiO2 03/08/21 14:00 98.1 98 18 100 03/08/21 09:06 154/82 03/07/21 06:40 Room Air 03/06/21 05:49 Current Medications Current Medications Medications (Trade) Dose Ordered Sig/Cory Route PRN Reason Start Time Stop Time Status Last Admin Dose Admin Acetaminophen (Tylenol Tab) 650 mg Q4HP PRN PO MILD PAIN or TEMP > 101 01/04/21 19:45 01/16/21 09:56 DC 01/11/21 21:06 Acetaminophen (Tylenol Tab) 650 mg Q4HP PRN PO PAIN LEVEL 5-10 01/16/21 12:05 01/17/21 09:34 DC Acetaminophen (Tylenol Tab) 650 mg Q4HP PRN PO PAIN LEVEL 5-10 01/17/21 09:35 01/23/21 06:49 DC 01/22/21 20:52 Acetaminophen (Tylenol Tab) 650 mg Q6HP PRN PO HEADACHE or MILD DISCOMFORT 01/03/21 13:50 01/03/21 15:01 DC Acetaminophen (Tylenol Tab) 1,000 mg Q6HP PRN PO MODERATE PAIN (PS 5-7) 02/10/21 01:20 03/06/21 10:26 Acetaminophen (Tylenol Tab) 1,000 mg Q6HP PRN PO PAIN LEVEL 5-7 01/23/21 10:35 02/10/21 01:24 DC 01/29/21 05:57 Al Hydrox/Mg Hydrox/Simethicone (Mylanta) 30 ml DAILY PRN PO DYSPEPSIA 02/09/21 22:00 02/11/21 22:40 Al Hydrox/Mg Hydrox/Simethicone (Mylanta) 30 ml Q4HP PRN PO HEARTBURN/INDIGESTION 01/03/21 13:50 01/03/21 15:01 DC Aripiprazole (AbiLIFY) 5 mg BID PO 03/07/21 09:00 03/13/21 23:59 03/08/21 08:54 Aripiprazole (AbiLIFY) 5 mg DAILY PO 03/14/21 09:00 03/21/21 23:59 Aripiprazole (AbiLIFY) 10 mg BID PO 03/01/21 21:00 03/06/21 23:59 DC 03/06/21 20:28 Aripiprazole (AbiLIFY) 15 mg BID PO 01/03/21 09:00 01/03/21 14:11 DC 01/03/21 09:32 Aripiprazole (AbiLIFY) 15 mg BID PO 01/03/21 21:00 01/03/21 18:24 DC Aripiprazole (AbiLIFY) 15 mg BID PO 01/04/21 09:05 01/16/21 09:56 DC 01/16/21 09:21 Aripiprazole (AbiLIFY) 15 mg BID PO 01/16/21 21:00 01/17/21 09:38 DC 01/16/21 21:58 Aripiprazole (AbiLIFY) 15 mg BID PO 01/17/21 09:00 01/23/21 06:49 DC 01/22/21 20:51 Aripiprazole (AbiLIFY) 15 mg BID PO 02/10/21 09:00 02/28/21 15:43 DC 02/28/21 09:00 Aripiprazole (AbiLIFY) 15 mg BID PO 01/23/21 09:00 02/10/21 01:24 DC 02/09/21 20:58 Aripiprazole (AbiLIFY) 30 mg QHS PO 01/04/21 21:00 01/04/21 09:21 DC Benztropine Mesylate (Cogentin) 0.5 mg BID PO 01/03/21 09:00 01/03/21 14:11 DC 01/03/21 09:32 Benztropine Mesylate (Cogentin) 0.5 mg BID PO 01/03/21 21:00 01/03/21 18:24 DC Benztropine Mesylate (Cogentin) 0.5 mg BID PO 01/04/21 09:05 01/16/21 09:56 DC 01/16/21 09:21 Benztropine Mesylate (Cogentin) 0.5 mg BID PO 01/16/21 21:00 01/17/21 09:38 DC 01/16/21 21:58 Benztropine Mesylate (Cogentin) 0.5 mg BID PO 01/17/21 09:00 01/23/21 06:49 DC 01/22/21 20:50 Benztropine Mesylate (Cogentin) 0.5 mg BID PO 02/10/21 09:00 03/08/21 08:54 Benztropine Mesylate (Cogentin) 0.5 mg BID PO 01/23/21 09:00 02/10/21 01:25 DC 02/09/21 20:59 Benztropine Mesylate (Cogentin) 0.5 mg QHS PO 01/03/21 21:00 01/04/21 09:21 DC Calcium/Vitamin D (Oscal D) 500 mg DAILY PO 01/03/21 09:00 01/03/21 14:11 DC 01/03/21 09:32 Calcium/Vitamin D (Oscal D) 500 mg DAILY PO 01/12/21 09:00 01/16/21 09:56 DC 01/16/21 09:21 Calcium/Vitamin D (Oscal D) 500 mg DAILY PO 01/17/21 09:00 01/17/21 09:38 DC 01/23/21 10:28 Calcium/Vitamin D (Oscal D) 500 mg DAILY PO 01/17/21 09:00 01/23/21 06:49 DC 01/22/21 08:18 Calcium/Vitamin D (Oscal D) 500 mg QAM PO 02/10/21 09:00 03/08/21 09:06 Calcium/Vitamin D (Oscal D) 500 mg QAM PO 01/23/21 09:00 02/10/21 01:26 DC 02/09/21 08:33 Clonazepam (KlonoPIN) 0.5 mg QHS PO 02/18/21 21:00 03/07/21 20:37 Home Med (Med Rec Complete!) ASDIRECTED XX 01/03/21 12:45 01/03/21 12:47 DC Hydroxyzine HCl (Atarax) 25 mg BID PO 01/04/21 09:05 01/16/21 09:56 DC 01/16/21 09:21 Hydroxyzine HCl (Atarax) 25 mg BID PO 01/16/21 21:00 01/17/21 09:38 DC 01/16/21 21:58 Hydroxyzine HCl (Atarax) 25 mg BID PO 01/17/21 09:00 01/23/21 06:49 DC 01/22/21 20:50 Hydroxyzine HCl (Atarax) 25 mg BID PO 02/10/21 09:00 02/28/21 15:43 DC 02/28/21 09:01 Hydroxyzine HCl (Atarax) 25 mg BID PO 01/23/21 21:00 02/10/21 01:26 DC 02/09/21 20:59 Hydroxyzine HCl (Atarax) 25 mg DAILY PO 01/04/21 09:00 01/03/21 18:24 DC Hydroxyzine HCl (Atarax) 25 mg DAILY PO 01/23/21 09:00 01/23/21 10:38 DC 01/23/21 10:28 Hydroxyzine HCl (Atarax) 25 mg DAILY PRN PO anxiety 03/01/21 13:10 03/07/21 11:44 Hydroxyzine HCl (Atarax) 50 mg BID PO 02/28/21 21:00 03/08/21 08:54 [place] Carbonate ([place] Carbonate) 150 mg BID PO 02/18/21 09:00 02/21/21 18:58 DC 02/21/21 10:14 [place] Carbonate ([place] Carbonate) 300 mg BID PO 02/21/21 21:00 03/08/21 08:54 Lorazepam (Ativan) 2 mg STAT STAT PO 01/11/21 13:12 01/11/21 13:13 DC 01/11/21 13:46 Lorazepam (Ativan) 2 mg STAT STAT PO 01/19/21 09:27 01/19/21 09:28 DC 01/19/21 09:35 Lorazepam (Ativan) 2 mg STAT STAT PO 01/20/21 15:51 01/20/21 15:52 DC 01/20/21 16:20 Magnesium Hydroxide (Milk Of Magnesia) 30 ml DAILY PRN PO CONSTIPATION 02/09/21 22:00 Magnesium Hydroxide (Milk Of Magnesia) 30 ml DAILYPRN PRN PO CONSTIPATION 01/03/21 13:50 01/03/21 15:01 DC Multivitamins (Theragram-M) 1 tab DAILY PO 01/03/21 09:00 01/03/21 14:11 DC 01/03/21 09:32 Multivitamins (Theragram-M) 1 tab DAILY PO 01/03/21 09:00 01/03/21 18:24 DC Multivitamins (Theragram-M) 1 tab DAILY PO 01/12/21 09:00 01/16/21 09:56 DC 01/16/21 09:21 Multivitamins (Theragram-M) 1 tab DAILY PO 01/17/21 09:00 01/17/21 09:39 DC Multivitamins (Theragram-M) 1 tab DAILY PO 01/17/21 09:00 01/23/21 06:49 DC 01/22/21 08:18 Multivitamins (Theragram-M) 1 tab DAILY PO 02/10/21 09:00 03/08/21 09:06 Multivitamins (Theragram-M) 1 tab DAILY PO 01/23/21 09:00 02/10/21 01:27 DC 02/09/21 08:32 Nystatin (Mycostatin Powder, Nystop) 1 dose BID TOP 02/15/21 14:00 03/08/21 09:07 Nystatin (Mycostatin Powder, Nystop) apply to breast folds... BIDP PRN TOP RASH 02/12/21 19:35 02/15/21 12:40 DC Oxcarbazepine (Trileptal) 600 mg BID PO 01/03/21 09:00 01/03/21 14:11 DC 01/03/21 09:32 Oxcarbazepine (Trileptal) 600 mg BID PO 01/03/21 21:00 01/03/21 18:24 DC Oxcarbazepine (Trileptal) 600 mg BID PO 01/05/21 21:00 01/16/21 09:56 DC 01/16/21 09:21 Oxcarbazepine (Trileptal) 600 mg BID PO 01/16/21 21:00 01/17/21 09:39 DC 01/16/21 21:58 Oxcarbazepine (Trileptal) 600 mg BID PO 01/17/21 09:00 01/23/21 06:49 DC 01/22/21 20:51 Oxcarbazepine (Trileptal) 600 mg BID PO 02/10/21 09:00 03/08/21 09:06 Oxcarbazepine (Trileptal) 600 mg BID PO 01/23/21 09:00 02/10/21 01:28 DC 02/09/21 20:59 Prazosin HCl (Minipress) 1 mg DAILY PO 03/01/21 09:00 03/08/21 09:06 Prazosin HCl (Minipress) 1 mg QHS PO 01/03/21 21:00 01/03/21 14:11 DC Prazosin HCl (Minipress) 1 mg QHS PO 01/03/21 21:00 01/03/21 18:24 DC Prazosin HCl (Minipress) 1 mg QHS PO 01/05/21 21:00 01/16/21 09:56 DC 01/15/21 20:34 Prazosin HCl (Minipress) 1 mg QHS PO 01/16/21 21:00 01/17/21 09:38 DC 01/16/21 21:58 Prazosin HCl (Minipress) 1 mg QHS PO 01/17/21 21:00 01/23/21 06:49 DC 01/22/21 20:50 Prazosin HCl (Minipress) 1 mg QHS PO 02/10/21 21:00 02/28/21 15:43 DC 02/27/21 20:50 Prazosin HCl (Minipress) 1 mg QHS PO 01/23/21 21:00 02/10/21 01:30 DC 02/09/21 21:02 Prazosin HCl (Minipress) 3 mg QHS PO 02/28/21 21:00 03/07/21 20:35 Trazodone HCl (Desyrel) 50 mg QHS PO 01/04/21 21:00 01/16/21 09:56 DC 01/15/21 20:34 Trazodone HCl (Desyrel) 50 mg QHS PO 01/16/21 21:00 01/17/21 09:39 DC 01/16/21 21:58 Trazodone HCl (Desyrel) 50 mg QHS PO 01/17/21 21:00 01/23/21 06:49 DC 01/22/21 20:47 Trazodone HCl (Desyrel) 50 mg QHS PO 02/10/21 21:00 03/07/21 20:38 Trazodone HCl (Desyrel) 50 mg QHS PO 01/23/21 21:00 02/10/21 01:30 DC 02/09/21 20:59 Trazodone HCl (Desyrel) 50 mg QHS PRN PO INSOMNIA 02/10/21 00:30 02/10/21 01:23 DC Trazodone HCl (Desyrel) 50 mg QHSP PRN PO INSOMNIA 01/03/21 13:50 01/03/21 15:01 DC Trazodone HCl (Desyrel) 50 mg QHSP PRN PO sleep 01/23/21 10:35 Cancel Allergies Coded Allergies: cariprazine (Verified Allergy, Intermediate, increased SI, 04/18/20) Penicillins (Verified Allergy, Mild, rash, 04/18/20) risperidone (Verified Allergy, Mild, RASH, 04/18/20) prednisone (Verified Adverse Reaction, Intermediate, anxiety, agitation, 04/18/20) quetiapine (Verified Adverse Reaction, Intermediate, OCULOGYRIC CRISIS, 04/18/20) brexpiprazole (Verified Adverse Reaction, Unknown, SUICIDAL, 08/22/20) KATHY JONES MD Mar 08, 2021 17:25
[2021-03-08] MEDS: traZODone 50 MG TAB PO SCH (20:41)
[2021-03-08] MEDS: clonazePAM 0.5 MG TAB PO SCH (20:41)
[2021-03-09] MEDS ORDERED: ARIPiprazole 10 MG TAB PO SCH ×2 (09:00→21:00)
[2021-03-09] MEDS: NYSTATIN 100,000 UNITS/GM TOPICAL PWD 15 GM TOP SCH (09:01)
[2021-03-09] MEDS: MULTIVITAMINS/MINERALS THERAP 1 TAB PO SCH (09:02)
[2021-03-09] MEDS: BENZTROPINE 0.5 MG TAB PO SCH (09:02)
[2021-03-09] MEDS: CALCIUM/VITAMIN D 500 MG TAB PO SCH (09:02)
[2021-03-09] MEDS: LITHIUM CARBONATE 300 MG CAP PO SCH (09:02)
[2021-03-09] MEDS: hydrOXYzine 50 MG TAB PO SCH (09:02)
[2021-03-09] MEDS: OXcarbazepine 300 MG TAB PO SCH (09:03)
[2021-03-09 09:06] VITALS: BP 151/95
[2021-03-09] MEDS: PRAZOSIN 1 MG CAP PO SCH (09:06)
--- NOTE | 2021-03-09 10:46 | IPNPDOC ---
Text Note Date of Service The patient was seen on 03/09/21. NOTE Subjective: -Agitated -Was seen Dr. Packer, recommended increase of abilify, declined IM admission due to being not appropriate for admission to the [facility]? Objective: Vitals: See below General: Patient is sitting up in sofa, agitated, but redirectable HEENT: Normocephalic, nontraumatic CVS: +S1S2 Lungs: Appears to be fair bilaterally without any evidence of crackles, wheezing or rhonchi Abdomen: Soft, nondistended, nontender Extremities: No evidence of lower extremity edema Assessment: 35 yo W with multiple psychiatric diagnoses who is ALC on medicine pending placement. Autism spectrum disorder Schizoaffective disorder s/p Suicidal ideation Inability to care for herself DVT prophylaxis; ambulation Plan: - Continue with current medications and increase abilify to 10mg daily with goal to increase back to 30mg QD -Was seen Dr. Packer, recommended increase of abilify, declined IM admission due to being not appropriate for admission to the [facility]? Disposition: - PFS on case and looking into placement VS,Fishbone, I+O VS, Fishbone, I+O Vital Signs Date Time Temp Pulse Resp B/P (MAP) Pulse Ox O2 Delivery O2 Flow Rate FiO2 03/09/21 09:06 151/95 03/08/21 14:00 98.1 98 18 100 03/07/21 06:40 Room Air 03/06/21 05:49 I&O- Last 24 Hours up to 6 AM 03/09/21 05:59 Intake Total 1250 ml Balance 1250 ml ANGELA WILLAMS MD Mar 09, 2021 10:29
[2021-03-09] MEDS ORDERED: MAALOX 30 ML SUSP *UDC PO PRN (12:55)
[2021-03-09] MEDS ORDERED: MOM 30ML SUSPENSION UDC PO PRN (12:55)
[2021-03-09] MEDS ORDERED: ACETAMINOPHEN TAB 650MG DOSE (2X325MG) PO PRN (12:55)
[2021-03-09] MEDS ORDERED: traZODone 50 MG TAB PO PRN (12:55)
[2021-03-09] MEDS ORDERED: HOME MED LIST COMPLETE! XX SCH (13:05)
[2021-03-09] MEDS ORDERED: CLON0.5T2 PO (14:20)
[2021-03-09] MEDS ORDERED: HYDR50TA70 PO (14:20)
[2021-03-09] MEDS ORDERED: LITH300C PO (14:20)
[2021-03-09] MEDS ORDERED: ARIP1TAB44 PO (14:20)
[2021-03-09] MEDS ORDERED: HYDR-3363 PO (14:20)
--- NOTE | 2021-03-09 16:31 | DS.PDOC ---
Discharge Summary General Date of Admission Feb 09, 2021 at 22:14 Date of Discharge 03/09/2021 Attending Physician: ANGELA WILLAMS MD Discharge Summary PROCEDURES PERFORMED DURING STAY: None ADMITTING DIAGNOSES: Schizzoaffective disorder DISCHARGE DIAGNOSES: Schizoaffective disorder Suicide attempt Suicidal ideation COMPLICATIONS/CHIEF COMPLAINT: Schizoaffective Disorder. HISTORY OF PRESENT ILLNESS: 35 y/o W with a history of autism spectrum disorder, schizoaffective disorder who presented to our emergency department on 01/02 for psych eval. The patient was eventually cleared by psych and awaiting placement. After a lengthy stay in the ED she was admitted to the inpatient medicine for PFS consultation and medical evaluation. HOSPITAL COURSE: On initial medical evaluation she denied any physical complaints and reported no recent fevers, chills, abd pain, uri sx, abd pain, n/v/d/c, dysuria, pedal edema, poor appetite. Workup was grossly unremarkable. She was admitted to medicine with psychiatry on consultation. While on medicine her course was c/b episodes of agitation with violent behavior and threatening self harm and harm to staff. Psychiatry was reconsulted for psychiatric medication optimization and on 03/07 she reported to staff that on 03/05 night, she had attempted suicide by choking herself with a blanket until she nearly passed out. Psychiatry was reconsulted again, and continued med adjustments and after much discussion she agreed to voluntarily be admitted to the [facility] where she is now being discharged to. DISCHARGE MEDICATIONS: Please see below. ALLERGIES: Please see below. PHYSICAL EXAMINATION ON DISCHARGE: VITAL SIGNS: Please see below. General: Patient is sitting up in sofa, agitated, but redirectable HEENT: Normocephalic, nontraumatic CVS: +S1S2 Lungs: Appears to be fair bilaterally without any evidence of crackles, wheezing or rhonchi Abdomen: Soft, nondistended, nontender Extremities: No evidence of lower extremity edema LABORATORY DATA: Please see below. IMAGING: None PROGNOSIS: None ACTIVITY: As tolerated DIET: Regular DISCHARGE PLAN: [facility] DISPOSITION: [facility] DISCHARGE INSTRUCTIONS: 1. GP [id number] of [facility] discharge ITEMS TO FOLLOWUP ON ON OUTPATIENT: PCP expectant post discharge follow up \ DISCHARGE CONDITION: Stable. TIME SPENT ON DISCHARGE: 33 minutes. Vital Signs/I&Os Vital Signs Date Time Temp Pulse Resp B/P (MAP) Pulse Ox O2 Delivery O2 Flow Rate FiO2 03/09/21 09:06 151/95 03/08/21 14:00 98.1 98 18 100 03/07/21 06:40 Room Air 03/06/21 05:49 I&O- Last 24 Hours up to 6 AM 03/09/21 06:00 Intake Total 1250 ml Balance 1250 ml Discharge Medications Scheduled Aripiprazole (Aripiprazole) 30 Mg Tablet, 10 MG PO BID Benztropine Mesylate (Benztropine Mesylate) 0.5 Mg Tablet, 0.5 MG PO BID, (Reported) Calcium Carbonate/Vitamin D3 (Calcium 600-Vit D3 800 Tablet) 1 Each Tablet, 1 TAB PO DAILY, (Reported) Clonazepam (Clonazepam) 0.5 Mg Tablet, 0.5 MG PO QHS Hydroxyzine HCl (Hydroxyzine HCl) 50 Mg Tablet, 50 MG PO BID [place] Carbonate ([place] Carbonate) 300 Mg Capsule, 300 MG PO BID Multivitamin (Multivitamins) 1 Each Tablet, 1 TAB PO DAILY, (Reported) Nystatin (Nystatin Powder) 15 Gm Powder, 1 APLCT TOP BID, (Reported) Oxcarbazepine (Oxcarbazepine) 600 Mg Tablet, 600 MG PO BID, (Reported) Prazosin Hcl (Prazosin HCl) 1 Mg Capsule, 1 MG PO QHS, (Reported) Scheduled PRN Acetaminophen (Acetaminophen) 500 Mg Tablet, 1,000 MG PO Q6H PRN for PAIN LEVEL 1-5, (Reported) Hydroxyzine HCl (Hydroxyzine HCl) 25 Mg Tablet, 25 MG PO DAILY PRN for anxiety Trazodone HCl (Trazodone HCl) 50 Mg Tablet, 50 MG PO QHS PRN for INSOMNIA, (Reported) Allergies Coded Allergies: cariprazine (Verified Allergy, Intermediate, increased SI, 04/18/20) Penicillins (Verified Allergy, Mild, rash, 04/18/20) risperidone (Verified Allergy, Mild, RASH, 04/18/20) prednisone (Verified Adverse Reaction, Intermediate, anxiety, agitation, 04/18/20) quetiapine (Verified Adverse Reaction, Intermediate, OCULOGYRIC CRISIS, 04/18/20) brexpiprazole (Verified Adverse Reaction, Unknown, SUICIDAL, 08/22/20) ANGELA WILLAMS MD Mar 09, 2021 16:31
== END 2021-03-09 19:45 | DRG 757 ==
LOC: M ED 14:17 → M ED INP 22:14 → UNDOADMIN 22:14 → M ED 01-03 13:46 → M ED INP 01-03 13:46 → CANBEDREQ 01-04 09:30 → M ED INP 02-09 22:14 → M MS5PR 02-09 23:11
PROVIDERS: ADMIT Internal Medicine; ATTEND Internal Medicine
DX: F84.0 Autistic disorder (principal); T14.91XA Suicide attempt, initial encounter; F25.9 Schizoaffective disorder, unspecified; R45.851 Suicidal ideations; Z74.1 Need for assistance with personal care; Z20.822 Contact with and (suspected) exposure to COVID-19; Z79.899 Other long term (current) drug therapy; Z88.0 Allergy status to penicillin; Z88.1 Allergy status to other antibiotic agents; Z88.8 Allergy status to other drugs, medicaments and biological substances

== ENCOUNTER 2021-03-09 14:04 | Inpatient (IN) | payer MEDICAID ==
[~2021-03-09 14:04] MED LIST changes: +NYST1POW9 TOP
[2021-03-09] MEDS ORDERED: HYDR50TA70 PO (14:20)
[2021-03-09] MEDS ORDERED: HYDR-3363 PO (14:20)
[2021-03-09] MEDS ORDERED: CLON0.5T2 PO (14:20)
[2021-03-09] MEDS ORDERED: LITH300C PO (14:20)
[2021-03-09] MEDS ORDERED: ARIP1TAB44 PO (14:20)
[2021-03-09] MEDS ORDERED: MOM 30ML SUSPENSION UDC PO PRN (16:30)
[2021-03-09] MEDS ORDERED: ACETAMINOPHEN TAB 650MG DOSE (2X325MG) PO PRN (16:30)
[2021-03-09 19:44] VITALS: BP 147/78
[2021-03-09] MEDS ORDERED: HOME MED LIST COMPLETE! XX SCH (19:55)
[2021-03-09] MEDS: ARIPiprazole 10 MG TAB PO SCH (21:22)
[2021-03-09] MEDS: traZODone 50 MG TAB PO PRN (21:22)
[2021-03-09] MEDS: BENZTROPINE 0.5 MG TAB PO SCH (21:22)
[2021-03-09] MEDS: clonazePAM 0.5 MG TAB PO SCH (21:22)
[2021-03-09] MEDS: OXcarbazepine 300 MG TAB PO SCH (21:22)
[2021-03-09] MEDS: LITHIUM CARBONATE 300 MG CAP PO SCH (21:22)
[2021-03-09] MEDS: PRAZOSIN 1 MG CAP PO SCH (21:23)
[2021-03-10 06:12] VITALS: BP 133/74
[2021-03-10] MEDS: LITHIUM CARBONATE 300 MG CAP PO SCH ×2 (08:54→20:40)
[2021-03-10] MEDS: PRAZOSIN 1 MG CAP PO SCH ×2 (08:54→20:41)
[2021-03-10] MEDS: ARIPiprazole 10 MG TAB PO SCH (08:54)
[2021-03-10] MEDS: BENZTROPINE 0.5 MG TAB PO SCH ×2 (08:54→20:40)
[2021-03-10] MEDS: OXcarbazepine 300 MG TAB PO SCH ×2 (08:54→20:37)
[2021-03-10 16:00] VITALS: BP 150/88
[2021-03-10] MEDS: clonazePAM 0.5 MG TAB PO SCH (20:40)
[2021-03-11 06:42] VITALS: BP 138/63
[2021-03-11 08:54] LABS: CHOLESTEROL RISK RATIO 3.877 (<5)
[2021-03-11] MEDS: PRAZOSIN 1 MG CAP PO SCH ×2 (09:08→21:09)
[2021-03-11] MEDS: LITHIUM CARBONATE 300 MG CAP PO SCH ×2 (09:08→21:03)
[2021-03-11] MEDS: BENZTROPINE 0.5 MG TAB PO SCH ×2 (09:09→21:03)
[2021-03-11] MEDS: OXcarbazepine 300 MG TAB PO SCH ×2 (09:09→21:03)
[2021-03-11] MEDS: hydrOXYzine 50 MG TAB PO PRN (12:18)
[2021-03-11 16:09] VITALS: BP 138/82
[2021-03-11] MEDS: clonazePAM 0.5 MG TAB PO SCH (21:03)
[2021-03-11] MEDS: traZODone 50 MG TAB PO PRN (23:23)
[2021-03-12 07:00] VITALS: BP 135/82
[2021-03-12] MEDS: PRAZOSIN 1 MG CAP PO SCH ×2 (08:46→20:14)
[2021-03-12] MEDS: BENZTROPINE 0.5 MG TAB PO SCH ×2 (08:46→20:09)
[2021-03-12] MEDS: OXcarbazepine 300 MG TAB PO SCH ×2 (08:47→20:08)
[2021-03-12] MEDS: LITHIUM CARBONATE 300 MG CAP PO SCH ×2 (08:47→20:09)
[2021-03-12 18:12] VITALS: BP 136/90
[2021-03-12] MEDS: OLANZapine ORAL DISINTEGRATING TAB 5MG PO PRN (18:23)
[2021-03-12] MEDS: clonazePAM 0.5 MG TAB PO SCH (20:08)
[2021-03-12] MEDS: traZODone 50 MG TAB PO PRN (21:44)
[2021-03-13 06:29] VITALS: BP 138/65
[2021-03-13] MEDS: LITHIUM CARBONATE 300 MG CAP PO SCH ×2 (09:01→20:43)
[2021-03-13] MEDS: BENZTROPINE 0.5 MG TAB PO SCH ×2 (09:01→20:42)
[2021-03-13] MEDS: OXcarbazepine 300 MG TAB PO SCH ×2 (09:02→20:42)
[2021-03-13 17:18] VITALS: BP 153/74
[2021-03-13] MEDS: clonazePAM 0.5 MG TAB PO SCH (20:42)
[2021-03-13] MEDS: PRAZOSIN 1 MG CAP PO SCH (20:43)
[2021-03-14 06:59] VITALS: BP 171/92
[2021-03-14] MEDS: LITHIUM CARBONATE 300 MG CAP PO SCH ×2 (08:48→20:55)
[2021-03-14] MEDS: OXcarbazepine 300 MG TAB PO SCH ×2 (08:48→20:54)
[2021-03-14] MEDS: BENZTROPINE 0.5 MG TAB PO SCH ×2 (08:48→20:55)
[2021-03-14 16:08] VITALS: BP 152/90
[2021-03-14] MEDS: clonazePAM 0.5 MG TAB PO SCH (20:55)
[2021-03-14] MEDS: PRAZOSIN 1 MG CAP PO SCH (20:55)
[2021-03-15 06:38] VITALS: BP 131/55
[2021-03-15] MEDS: LITHIUM CARBONATE 300 MG CAP PO SCH ×2 (08:36→20:31)
[2021-03-15] MEDS: BENZTROPINE 0.5 MG TAB PO SCH ×2 (08:36→20:31)
[2021-03-15] MEDS: OXcarbazepine 300 MG TAB PO SCH ×2 (08:37→20:31)
[2021-03-15 19:06] VITALS: BP 127/62
[2021-03-15] MEDS: clonazePAM 0.5 MG TAB PO SCH (20:31)
[2021-03-15] MEDS: PRAZOSIN 1 MG CAP PO SCH (20:31)
[2021-03-16 06:46] VITALS: BP 104/56
[2021-03-16] MEDS: OXcarbazepine 300 MG TAB PO SCH ×2 (08:34→21:04)
[2021-03-16] MEDS: BENZTROPINE 0.5 MG TAB PO SCH ×2 (08:36→21:04)
[2021-03-16] MEDS: LITHIUM CARBONATE 300 MG CAP PO SCH ×2 (08:36→21:04)
[2021-03-16 18:31] VITALS: BP 150/74
[2021-03-16] MEDS: clonazePAM 0.5 MG TAB PO SCH (21:04)
[2021-03-16] MEDS: PRAZOSIN 1 MG CAP PO SCH (21:10)
[2021-03-17 06:00] VITALS: BP 127/67
[2021-03-17] MEDS: OXcarbazepine 300 MG TAB PO SCH ×2 (09:44→21:52)
[2021-03-17] MEDS: LITHIUM CARBONATE 300 MG CAP PO SCH ×2 (09:44→21:52)
[2021-03-17] MEDS: BENZTROPINE 0.5 MG TAB PO SCH ×2 (09:44→21:53)
[2021-03-17 19:16] VITALS: BP 148/82
[2021-03-17] MEDS: clonazePAM 0.5 MG TAB PO SCH (21:52)
[2021-03-17] MEDS: PRAZOSIN 1 MG CAP PO SCH (21:54)
[2021-03-18 06:00] VITALS: BP 148/80
[2021-03-18] MEDS: BENZTROPINE 0.5 MG TAB PO SCH ×2 (09:22→20:51)
[2021-03-18] MEDS: OXcarbazepine 300 MG TAB PO SCH ×2 (09:22→20:51)
[2021-03-18] MEDS: LITHIUM CARBONATE 300 MG CAP PO SCH ×2 (09:22→20:51)
[2021-03-18 18:57] VITALS: BP 176/75
[2021-03-18] MEDS: clonazePAM 0.5 MG TAB PO SCH (20:51)
[2021-03-18] MEDS: PRAZOSIN 1 MG CAP PO SCH (20:53)
[2021-03-19 06:24] VITALS: BP 128/58
[2021-03-19] MEDS: OXcarbazepine 300 MG TAB PO SCH ×2 (09:05→20:47)
[2021-03-19] MEDS: LITHIUM CARBONATE 300 MG CAP PO SCH ×2 (09:05→20:47)
[2021-03-19] MEDS: BENZTROPINE 0.5 MG TAB PO SCH ×2 (09:05→20:47)
[2021-03-19 16:31] VITALS: BP 140/71
[2021-03-19 20:08] LABS: BASO # 0.1 10^3/uL (0.0-0.2); BASO % 0.6 % (0.0-1.0); EOS # 0.2 10^3/uL (0.0-0.5); EOS % 1.4 % (0.0-3.0); HEMATOCRIT 39.7 % (36.0-47.0); HEMOGLOBIN 12.6 g/dl (12.0-15.5); LYMPH # 1.3 10^3/uL (1.5-5.0); LYMPH % 11.7 % (24.0-44.0); MEAN CORPUSCULAR HEMOGLOBIN 27.9 pg (27.0-33.0); MEAN CORPUSCULAR HGB CONC 31.7 g/dl (32.0-36.5); MEAN CORPUSCULAR VOLUME 87.8 fl (80.0-96.0); MONO # 0.8 10^3/uL (0.0-0.8); MONO % 7.2 % (2.0-8.0); NEUTROPHILS # 8.9 10^3/uL (1.5-8.5); NEUTROPHILS % 78.2 % (36.0-66.0); PLATELET COUNT, AUTOMATED 285 10^3/uL (150-450); RED BLOOD COUNT 4.52 10^6/uL (4.00-5.40); WHITE BLOOD COUNT 11.3 10^3/uL (4.0-10.0)
[2021-03-19] MEDS: PRAZOSIN 1 MG CAP PO SCH (20:47)
[2021-03-19] MEDS: clonazePAM 0.5 MG TAB PO SCH (20:48)
[2021-03-20 05:43] VITALS: BP 105/50
[2021-03-20] MEDS: LITHIUM CARBONATE 300 MG CAP PO SCH ×2 (09:18→20:44)
[2021-03-20] MEDS: OXcarbazepine 300 MG TAB PO SCH ×2 (09:18→20:45)
[2021-03-20] MEDS: BENZTROPINE 0.5 MG TAB PO SCH ×2 (09:18→20:45)
[2021-03-20 16:16] VITALS: BP 142/78
[2021-03-20] MEDS: clonazePAM 0.5 MG TAB PO SCH (20:44)
[2021-03-20] MEDS: PRAZOSIN 1 MG CAP PO SCH (20:45)
[2021-03-21 06:39] VITALS: BP 98/51
[2021-03-21] MEDS: OXcarbazepine 300 MG TAB PO SCH ×2 (08:34→22:00)
[2021-03-21] MEDS: LITHIUM CARBONATE 300 MG CAP PO SCH ×3 (08:34→22:00)
[2021-03-21] MEDS: BENZTROPINE 0.5 MG TAB PO SCH ×2 (08:34→22:01)
[2021-03-21 16:25] VITALS: BP 145/70
[2021-03-21] MEDS: PRAZOSIN 1 MG CAP PO SCH (21:59)
[2021-03-21] MEDS: clonazePAM 0.5 MG TAB PO SCH (22:00)
[2021-03-22 07:16] VITALS: BP 128/77
[2021-03-22] MEDS: BENZTROPINE 0.5 MG TAB PO SCH ×2 (09:34→20:34)
[2021-03-22] MEDS: OXcarbazepine 300 MG TAB PO SCH ×2 (09:35→20:34)
[2021-03-22] MEDS: LITHIUM CARBONATE 300 MG CAP PO SCH ×3 (09:35→20:34)
[2021-03-22] MEDS: OLANZapine ORAL DISINTEGRATING TAB 5MG PO PRN (09:37)
[2021-03-22 16:00] VITALS: BP 131/86
[2021-03-22] MEDS: clonazePAM 0.5 MG TAB PO SCH (20:34)
[2021-03-22] MEDS: PRAZOSIN 1 MG CAP PO SCH (20:34)
[2021-03-22] MEDS: traZODone 50 MG TAB PO PRN (22:31)
[2021-03-23 06:24] VITALS: BP 114/56
[2021-03-23] MEDS: OXcarbazepine 300 MG TAB PO SCH ×2 (08:03→21:14)
[2021-03-23] MEDS: BENZTROPINE 0.5 MG TAB PO SCH ×2 (08:03→21:14)
[2021-03-23] MEDS: LITHIUM CARBONATE 300 MG CAP PO SCH ×3 (08:04→21:14)
[2021-03-23 16:19] VITALS: BP 136/74
[2021-03-23] MEDS: clonazePAM 0.5 MG TAB PO SCH (21:14)
[2021-03-23] MEDS: PRAZOSIN 1 MG CAP PO SCH (21:14)
[2021-03-24 06:23] VITALS: BP 116/59
[2021-03-24] MEDS: LITHIUM CARBONATE 300 MG CAP PO SCH ×3 (07:57→20:48)
[2021-03-24] MEDS: BENZTROPINE 0.5 MG TAB PO SCH ×2 (07:57→20:48)
[2021-03-24] MEDS: OXcarbazepine 300 MG TAB PO SCH ×2 (07:57→20:48)
[2021-03-24 16:37] VITALS: BP 143/76
[2021-03-24] MEDS: PRAZOSIN 1 MG CAP PO SCH (20:48)
[2021-03-24] MEDS: clonazePAM 0.5 MG TAB PO SCH (20:48)
[2021-03-25 06:00] VITALS: BP 131/56
[2021-03-25] MEDS: BENZTROPINE 0.5 MG TAB PO SCH ×2 (09:21→20:58)
[2021-03-25] MEDS: OXcarbazepine 300 MG TAB PO SCH ×2 (09:21→21:02)
[2021-03-25] MEDS: LITHIUM CARBONATE 300 MG CAP PO SCH ×3 (09:21→20:58)
[2021-03-25 16:51] VITALS: BP 144/75
[2021-03-25] MEDS: PRAZOSIN 1 MG CAP PO SCH (21:00)
[2021-03-25] MEDS: clonazePAM 0.5 MG TAB PO SCH (21:01)
[2021-03-26 07:18] VITALS: BP 137/61
[2021-03-26] MEDS: OXcarbazepine 300 MG TAB PO SCH ×2 (08:37→21:28)
[2021-03-26] MEDS: BENZTROPINE 0.5 MG TAB PO SCH ×2 (08:37→21:27)
[2021-03-26] MEDS ORDERED: LITHIUM CARBONATE 300 MG CAP PO SCH ×2 (09:00→21:00)
[2021-03-26] MEDS: LITHIUM CARBONATE 300 MG CAP PO SCH ×2 (15:58→21:23)
[2021-03-26 18:03] VITALS: BP 130/72
[2021-03-26] MEDS: PRAZOSIN 1 MG CAP PO SCH (21:27)
[2021-03-26] MEDS: clonazePAM 0.5 MG TAB PO SCH (21:28)
[2021-03-27 06:00] VITALS: BP 119/61
[2021-03-27] MEDS: BENZTROPINE 0.5 MG TAB PO SCH ×2 (09:04→20:33)
[2021-03-27] MEDS: LITHIUM CARBONATE 300 MG CAP PO SCH ×3 (09:05→20:33)
[2021-03-27] MEDS: OLANZapine ORAL DISINTEGRATING TAB 5MG PO PRN (09:05)
[2021-03-27] MEDS: OXcarbazepine 300 MG TAB PO SCH ×2 (09:05→20:33)
[2021-03-27 19:27] VITALS: BP 136/82
[2021-03-27 20:00] VITALS: BP 136/82
[2021-03-27] MEDS: PRAZOSIN 1 MG CAP PO SCH (20:32)
[2021-03-27] MEDS: clonazePAM 0.5 MG TAB PO SCH (20:33)
[2021-03-28 06:00] VITALS: BP 110/53
[2021-03-28] MEDS: BENZTROPINE 0.5 MG TAB PO SCH ×2 (08:49→21:22)
[2021-03-28] MEDS: LITHIUM CARBONATE 300 MG CAP PO SCH ×3 (08:49→21:23)
[2021-03-28] MEDS: OXcarbazepine 300 MG TAB PO SCH ×2 (08:50→21:22)
[2021-03-28] MEDS: OLANZapine ORAL DISINTEGRATING TAB 5MG PO PRN (08:51)
[2021-03-28 19:31] VITALS: BP 138/63
[2021-03-28] MEDS: hydrOXYzine 50 MG TAB PO PRN (21:23)
[2021-03-28] MEDS: clonazePAM 0.5 MG TAB PO SCH (21:23)
[2021-03-28] MEDS: PRAZOSIN 1 MG CAP PO SCH (21:24)
[2021-03-29 06:23] VITALS: BP 99/56
[2021-03-29] MEDS: LITHIUM CARBONATE 300 MG CAP PO SCH ×3 (08:32→20:20)
[2021-03-29] MEDS: BENZTROPINE 0.5 MG TAB PO SCH ×2 (08:32→20:20)
[2021-03-29] MEDS: OXcarbazepine 300 MG TAB PO SCH ×2 (08:33→20:21)
[2021-03-29] MEDS ORDERED: propofoL 200 MG/20 ML VIAL As Ordered ONE (09:24)
[2021-03-29] MEDS ORDERED: LIDOCAINE 2% 100MG/5ML SDV (FOR ANES.) As Ordered ONE (09:24)
[2021-03-29 16:22] VITALS: BP 136/64
[2021-03-29] MEDS ORDERED: LORazepam 2 MG TAB PO ONE (20:20)
[2021-03-29] MEDS: clonazePAM 0.5 MG TAB PO SCH (20:20)
[2021-03-29] MEDS ORDERED: diphenhydrAMINE 50MG CAP PO ONE (20:20)
[2021-03-29] MEDS: PRAZOSIN 1 MG CAP PO SCH (20:25)
[2021-03-30 06:14] VITALS: BP 135/63
[2021-03-30] MEDS: OXcarbazepine 300 MG TAB PO SCH ×2 (09:03→20:37)
[2021-03-30] MEDS: LITHIUM CARBONATE 300 MG CAP PO SCH ×2 (09:04→20:37)
[2021-03-30] MEDS: hydrOXYzine 50 MG TAB PO PRN ×2 (09:04→15:11)
[2021-03-30] MEDS: BENZTROPINE 0.5 MG TAB PO SCH ×2 (09:04→20:37)
[2021-03-30 18:00] VITALS: BP 139/81
[2021-03-30] MEDS: clonazePAM 0.5 MG TAB PO SCH (20:37)
[2021-03-30] MEDS: PRAZOSIN 1 MG CAP PO SCH (20:38)
[2021-03-30] MEDS: NYSTATIN 100,000 UNITS/GM TOPICAL PWD 15 GM TOP SCH (20:38)
[2021-03-31] MEDS: OXcarbazepine 300 MG TAB PO SCH ×2 (09:26→20:09)
[2021-03-31] MEDS: NYSTATIN 100,000 UNITS/GM TOPICAL PWD 15 GM TOP SCH ×2 (09:26→22:34)
[2021-03-31] MEDS: LITHIUM CARBONATE 300 MG CAP PO SCH ×2 (09:27→20:10)
[2021-03-31] MEDS: BENZTROPINE 0.5 MG TAB PO SCH ×2 (09:27→20:10)
[2021-03-31 19:16] VITALS: BP 130/72
[2021-03-31] MEDS: PRAZOSIN 1 MG CAP PO SCH (20:09)
[2021-03-31] MEDS: clonazePAM 0.5 MG TAB PO SCH (20:10)
[2021-03-31] MEDS: hydrOXYzine 50 MG TAB PO PRN (20:21)
[2021-04-01 06:29] VITALS: BP 121/64
[2021-04-01] MEDS: NYSTATIN 100,000 UNITS/GM TOPICAL PWD 15 GM TOP SCH ×2 (08:54→20:40)
[2021-04-01] MEDS: LITHIUM CARBONATE 300 MG CAP PO SCH ×2 (08:55→20:41)
[2021-04-01] MEDS: BENZTROPINE 0.5 MG TAB PO SCH ×2 (08:55→20:43)
[2021-04-01] MEDS: OXcarbazepine 300 MG TAB PO SCH ×2 (08:55→20:43)
[2021-04-01] MEDS: hydrOXYzine 50 MG TAB PO PRN (15:43)
[2021-04-01] MEDS: clonazePAM 0.5 MG TAB PO SCH (20:42)
[2021-04-01] MEDS: PRAZOSIN 1 MG CAP PO SCH (20:42)
[2021-04-01 22:00] VITALS: BP 123/66
[2021-04-02 06:49] VITALS: BP 131/61
[2021-04-02] MEDS: OXcarbazepine 300 MG TAB PO SCH ×2 (08:18→20:57)
[2021-04-02] MEDS: LITHIUM CARBONATE 300 MG CAP PO SCH ×2 (08:18→20:57)
[2021-04-02] MEDS: BENZTROPINE 0.5 MG TAB PO SCH ×2 (08:18→20:57)
[2021-04-02] MEDS: NYSTATIN 100,000 UNITS/GM TOPICAL PWD 15 GM TOP SCH ×2 (08:18→20:58)
[2021-04-02 16:50] VITALS: BP 115/78
[2021-04-02] MEDS: clonazePAM 0.5 MG TAB PO SCH (20:56)
[2021-04-02] MEDS: PRAZOSIN 1 MG CAP PO SCH (20:57)
[2021-04-03 07:03] VITALS: BP 121/57
[2021-04-03] MEDS: BENZTROPINE 0.5 MG TAB PO SCH ×2 (08:46→20:11)
[2021-04-03] MEDS: OXcarbazepine 300 MG TAB PO SCH ×2 (08:46→20:11)
[2021-04-03] MEDS: NYSTATIN 100,000 UNITS/GM TOPICAL PWD 15 GM TOP SCH ×2 (08:46→20:13)
[2021-04-03] MEDS: LITHIUM CARBONATE 300 MG CAP PO SCH ×2 (08:46→20:12)
[2021-04-03 16:23] VITALS: BP 149/77
[2021-04-03] MEDS: clonazePAM 0.5 MG TAB PO SCH (20:11)
[2021-04-03] MEDS: PRAZOSIN 1 MG CAP PO SCH (20:12)
[2021-04-04 06:38] VITALS: BP 128/58
[2021-04-04] MEDS: OXcarbazepine 300 MG TAB PO SCH ×2 (08:43→21:34)
[2021-04-04] MEDS: LITHIUM CARBONATE 300 MG CAP PO SCH ×2 (08:44→21:34)
[2021-04-04] MEDS: BENZTROPINE 0.5 MG TAB PO SCH ×2 (08:44→21:34)
[2021-04-04] MEDS: NYSTATIN 100,000 UNITS/GM TOPICAL PWD 15 GM TOP SCH ×2 (08:58→21:35)
[2021-04-04 16:25] VITALS: BP 143/88
[2021-04-04] MEDS: PRAZOSIN 1 MG CAP PO SCH (21:34)
[2021-04-04] MEDS: clonazePAM 0.5 MG TAB PO SCH (21:34)
[2021-04-05 07:49] VITALS: BP 131/62
[2021-04-05] MEDS: BENZTROPINE 0.5 MG TAB PO SCH ×2 (09:21→20:32)
[2021-04-05] MEDS: OXcarbazepine 300 MG TAB PO SCH ×2 (09:21→20:32)
[2021-04-05] MEDS: LITHIUM CARBONATE 300 MG CAP PO SCH (09:21)
[2021-04-05] MEDS: NYSTATIN 100,000 UNITS/GM TOPICAL PWD 15 GM TOP SCH ×2 (09:22→20:33)
[2021-04-05] MEDS: clonazePAM 0.5 MG TAB PO SCH (20:32)
[2021-04-05] MEDS: PRAZOSIN 1 MG CAP PO SCH (20:35)
[2021-04-05] MEDS: hydrOXYzine 50 MG TAB PO PRN (20:36)
[2021-04-05] MEDS: LURASIDONE 20 MG TAB (LATUDA) PO SCH (20:36)
[2021-04-06 07:25] VITALS: BP 122/52
[2021-04-06] MEDS: NYSTATIN 100,000 UNITS/GM TOPICAL PWD 15 GM TOP SCH ×2 (08:24→20:47)
[2021-04-06] MEDS: BENZTROPINE 0.5 MG TAB PO SCH (08:25)
[2021-04-06] MEDS: LITHIUM CARBONATE 300 MG CAP PO SCH (08:25)
[2021-04-06] MEDS: OXcarbazepine 300 MG TAB PO SCH ×2 (08:25→20:48)
[2021-04-06 16:48] VITALS: BP 154/87
[2021-04-06] MEDS: PRAZOSIN 1 MG CAP PO SCH (20:47)
[2021-04-06] MEDS: clonazePAM 0.5 MG TAB PO SCH (20:48)
[2021-04-06] MEDS: LURASIDONE 20 MG TAB (LATUDA) PO SCH (20:48)
[2021-04-06] MEDS: BENZTROPINE 1 MG TAB PO SCH (20:48)
[2021-04-07 06:44] VITALS: BP 119/59
[2021-04-07] MEDS: OXcarbazepine 300 MG TAB PO SCH ×2 (08:19→20:29)
[2021-04-07] MEDS: NYSTATIN 100,000 UNITS/GM TOPICAL PWD 15 GM TOP SCH ×2 (08:19→20:28)
[2021-04-07] MEDS: BENZTROPINE 1 MG TAB PO SCH ×2 (08:19→20:29)
[2021-04-07] MEDS: LITHIUM CARBONATE 300 MG CAP PO SCH (08:19)
[2021-04-07] MEDS: ACETAMINOPHEN TAB 650MG DOSE (2X325MG) PO PRN (12:57)
[2021-04-07 16:25] VITALS: BP 136/69
[2021-04-07] MEDS: LURASIDONE 20 MG TAB (LATUDA) PO SCH (20:29)
[2021-04-07] MEDS: PRAZOSIN 1 MG CAP PO SCH (20:29)
[2021-04-07] MEDS: clonazePAM 0.5 MG TAB PO SCH (20:29)
[2021-04-08 06:37] VITALS: BP 113/56
[2021-04-08] MEDS: BENZTROPINE 1 MG TAB PO SCH ×2 (08:23→21:42)
[2021-04-08] MEDS: NYSTATIN 100,000 UNITS/GM TOPICAL PWD 15 GM TOP SCH ×2 (08:23→21:42)
[2021-04-08] MEDS: LITHIUM CARBONATE 300 MG CAP PO SCH (08:23)
[2021-04-08] MEDS: OXcarbazepine 300 MG TAB PO SCH ×2 (08:24→21:41)
[2021-04-08] MEDS: hydrOXYzine 50 MG TAB PO PRN (09:46)
[2021-04-08 16:33] VITALS: BP 132/66
[2021-04-08] MEDS: LURASIDONE 20 MG TAB (LATUDA) PO SCH (21:41)
[2021-04-08] MEDS: clonazePAM 0.5 MG TAB PO SCH (21:42)
[2021-04-08] MEDS: PRAZOSIN 1 MG CAP PO SCH (21:45)
[2021-04-09] MEDS: NYSTATIN 100,000 UNITS/GM TOPICAL PWD 15 GM TOP SCH ×2 (09:01→20:09)
[2021-04-09] MEDS: BENZTROPINE 1 MG TAB PO SCH ×2 (09:02→20:09)
[2021-04-09] MEDS: LITHIUM CARBONATE 300 MG CAP PO SCH (09:02)
[2021-04-09] MEDS: OXcarbazepine 300 MG TAB PO SCH ×2 (09:02→20:09)
[2021-04-09 17:55] VITALS: BP 140/92
[2021-04-09] MEDS: clonazePAM 0.5 MG TAB PO SCH (20:09)
[2021-04-09] MEDS: LURASIDONE 20 MG TAB (LATUDA) PO SCH (20:09)
[2021-04-09] MEDS: PRAZOSIN 1 MG CAP PO SCH (20:13)
[2021-04-10 06:57] VITALS: BP 112/54
[2021-04-10] MEDS: BENZTROPINE 1 MG TAB PO SCH ×2 (09:04→20:22)
[2021-04-10] MEDS: NYSTATIN 100,000 UNITS/GM TOPICAL PWD 15 GM TOP SCH ×2 (09:04→20:22)
[2021-04-10] MEDS: OXcarbazepine 300 MG TAB PO SCH ×2 (09:04→20:21)
[2021-04-10 19:20] VITALS: BP 160/100
[2021-04-10] MEDS: ACETAMINOPHEN TAB 650MG DOSE (2X325MG) PO PRN (19:44)
[2021-04-10] MEDS: clonazePAM 0.5 MG TAB PO SCH (20:21)
[2021-04-10] MEDS: LURASIDONE 20 MG TAB (LATUDA) PO SCH (20:22)
[2021-04-10] MEDS: PRAZOSIN 1 MG CAP PO SCH (20:28)
[2021-04-11 06:37] VITALS: BP 110/60
[2021-04-11] MEDS: BENZTROPINE 1 MG TAB PO SCH ×2 (08:52→20:51)
[2021-04-11] MEDS: NYSTATIN 100,000 UNITS/GM TOPICAL PWD 15 GM TOP SCH ×2 (08:52→20:54)
[2021-04-11] MEDS: OXcarbazepine 300 MG TAB PO SCH ×2 (08:52→20:51)
[2021-04-11] MEDS: LURASIDONE HCL 40MG TAB (LATUDA) PO SCH (20:51)
[2021-04-11] MEDS: PRAZOSIN 1 MG CAP PO SCH (20:51)
[2021-04-11] MEDS: clonazePAM 0.5 MG TAB PO SCH (20:51)
[2021-04-12 06:13] VITALS: BP 117/58
[2021-04-12] MEDS: NYSTATIN 100,000 UNITS/GM TOPICAL PWD 15 GM TOP SCH ×2 (09:00→20:36)
[2021-04-12] MEDS: OXcarbazepine 300 MG TAB PO SCH ×2 (09:06→20:34)
[2021-04-12] MEDS: BENZTROPINE 1 MG TAB PO SCH ×2 (09:06→20:34)
[2021-04-12] MEDS: ACETAMINOPHEN TAB 650MG DOSE (2X325MG) PO PRN (17:28)
[2021-04-12 18:02] VITALS: BP 124/84
[2021-04-12] MEDS: hydrOXYzine 50 MG TAB PO PRN (19:03)
[2021-04-12] MEDS: PRAZOSIN 1 MG CAP PO SCH (20:34)
[2021-04-12] MEDS: LURASIDONE HCL 40MG TAB (LATUDA) PO SCH (20:34)
[2021-04-12] MEDS: clonazePAM 0.5 MG TAB PO SCH (20:34)
[2021-04-13 06:40] VITALS: BP 120/56
[2021-04-13] MEDS: NYSTATIN 100,000 UNITS/GM TOPICAL PWD 15 GM TOP SCH ×2 (08:26→20:44)
[2021-04-13] MEDS: OXcarbazepine 300 MG TAB PO SCH ×2 (08:26→20:36)
[2021-04-13] MEDS: BENZTROPINE 1 MG TAB PO SCH (08:26)
[2021-04-13 11:54] LABS: APPEARANCE, URINE CLEAR (CLEAR); BACTERIA, URINE AUTO 1+ (NEGATIVE); BILIRUBIN, URINE AUTO NEGATIVE (NEGATIVE); BLOOD, URINE BLOOD NEGATIVE (NEGATIVE); COLOR, URINE COLORLESS (YELLOW); GLUCOSE, URINE (UA) AUTO NEGATIVE (NEGATIVE); KETONE, URINE AUTO NEGATIVE (NEGATIVE); LEUKOCYTE ESTERASE, URINE AUTO NEGATIVE (NEGATIVE); NITRITE, URINE AUTO NEGATIVE (NEGATIVE); PROTEIN, URINE AUTO NEGATIVE (NEGATIVE); RBC, URINE AUTO 0 /HPF (0-3); SPECIFIC GRAVITY URINE AUTO 1.002 (1.002-1.035); SQUAMOUS EPITHELIAL CELL UR AU 0 /HPF (0-6); UROBILINOGEN, URINE AUTO 0.2 mg/dL (0.0-2.0); WBC, URINE AUTO 0 /HPF (0-3)
[2021-04-13 19:04] VITALS: BP 144/90
[2021-04-13] MEDS: BENZTROPINE 0.5 MG TAB PO SCH (20:36)
[2021-04-13] MEDS: clonazePAM 0.5 MG TAB PO SCH (20:36)
[2021-04-13] MEDS: PRAZOSIN 1 MG CAP PO SCH (20:41)
[2021-04-13] MEDS: LURASIDONE HCL 40MG TAB (LATUDA) PO SCH (20:41)
[2021-04-14 07:34] VITALS: BP 126/60
[2021-04-14] MEDS: NYSTATIN 100,000 UNITS/GM TOPICAL PWD 15 GM TOP SCH ×2 (08:24→21:16)
[2021-04-14] MEDS: BENZTROPINE 0.5 MG TAB PO SCH ×2 (08:24→21:15)
[2021-04-14] MEDS: OXcarbazepine 300 MG TAB PO SCH ×2 (08:24→21:15)
[2021-04-14] MEDS: hydrOXYzine 50 MG TAB PO PRN (16:07)
[2021-04-14 18:52] VITALS: BP 132/80
[2021-04-14] MEDS: clonazePAM 0.5 MG TAB PO SCH (21:12)
[2021-04-14] MEDS: PRAZOSIN 1 MG CAP PO SCH (21:14)
[2021-04-14] MEDS: LURASIDONE HCL 40MG TAB (LATUDA) PO SCH (21:15)
[2021-04-15 06:00] VITALS: BP 116/66
[2021-04-15] MEDS: NYSTATIN 100,000 UNITS/GM TOPICAL PWD 15 GM TOP SCH ×2 (08:39→20:35)
[2021-04-15] MEDS: OXcarbazepine 300 MG TAB PO SCH ×2 (08:39→20:34)
[2021-04-15] MEDS: BENZTROPINE 0.5 MG TAB PO SCH ×2 (08:39→20:35)
[2021-04-15 18:48] VITALS: BP 138/90
[2021-04-15] MEDS: LURASIDONE HCL 40MG TAB (LATUDA) PO SCH (20:34)
[2021-04-15] MEDS: PRAZOSIN 1 MG CAP PO SCH (20:35)
[2021-04-15] MEDS: clonazePAM 0.5 MG TAB PO SCH (20:35)
[2021-04-16] MEDS: NYSTATIN 100,000 UNITS/GM TOPICAL PWD 15 GM TOP SCH ×2 (08:56→21:00)
[2021-04-16] MEDS: hydrOXYzine 50 MG TAB PO PRN (08:57)
[2021-04-16] MEDS: BENZTROPINE 0.5 MG TAB PO SCH ×2 (08:57→21:06)
[2021-04-16] MEDS: OXcarbazepine 300 MG TAB PO SCH ×2 (08:59→21:05)
[2021-04-16] MEDS: CLOTRIMAZOLE 1% TOPICAL CREAM 30GM TOP SCH (11:30)
[2021-04-16 16:13] VITALS: BP 134/71
[2021-04-16] MEDS: LURASIDONE HCL 40MG TAB (LATUDA) PO SCH (21:06)
[2021-04-16] MEDS: clonazePAM 0.5 MG TAB PO SCH (21:06)
[2021-04-16] MEDS: PRAZOSIN 1 MG CAP PO SCH (21:09)
[2021-04-17 06:22] VITALS: BP 122/55
[2021-04-17] MEDS: OXcarbazepine 300 MG TAB PO SCH ×2 (07:28→20:15)
[2021-04-17] MEDS: CLOTRIMAZOLE 1% TOPICAL CREAM 30GM TOP SCH (07:29)
[2021-04-17] MEDS: BENZTROPINE 0.5 MG TAB PO SCH ×2 (07:29→20:14)
[2021-04-17] MEDS: NYSTATIN 100,000 UNITS/GM TOPICAL PWD 15 GM TOP SCH ×2 (07:29→20:15)
[2021-04-17 16:21] VITALS: BP 137/78
[2021-04-17] MEDS: PRAZOSIN 1 MG CAP PO SCH (20:15)
[2021-04-17] MEDS: clonazePAM 0.5 MG TAB PO SCH (20:15)
[2021-04-17] MEDS: LURASIDONE HCL 40MG TAB (LATUDA) PO SCH (20:15)
[2021-04-18 06:35] VITALS: BP 127/59
[2021-04-18] MEDS: OXcarbazepine 300 MG TAB PO SCH ×2 (07:58→20:23)
[2021-04-18] MEDS: NYSTATIN 100,000 UNITS/GM TOPICAL PWD 15 GM TOP SCH ×2 (07:58→20:24)
[2021-04-18] MEDS: CLOTRIMAZOLE 1% TOPICAL CREAM 30GM TOP SCH (07:58)
[2021-04-18] MEDS: BENZTROPINE 0.5 MG TAB PO SCH ×2 (07:58→20:23)
[2021-04-18 16:35] VITALS: BP 138/73
[2021-04-18] MEDS: clonazePAM 0.5 MG TAB PO SCH (20:23)
[2021-04-18] MEDS: LURASIDONE HCL 40MG TAB (LATUDA) PO SCH (20:24)
[2021-04-18] MEDS: PRAZOSIN 1 MG CAP PO SCH (20:30)
[2021-04-19 07:19] VITALS: BP 102/65
[2021-04-19] MEDS: NYSTATIN 100,000 UNITS/GM TOPICAL PWD 15 GM TOP SCH ×2 (08:22→20:29)
[2021-04-19] MEDS: CLOTRIMAZOLE 1% TOPICAL CREAM 30GM TOP SCH (08:22)
[2021-04-19] MEDS: OXcarbazepine 300 MG TAB PO SCH ×2 (08:23→20:31)
[2021-04-19] MEDS: BENZTROPINE 0.5 MG TAB PO SCH ×2 (08:23→20:30)
[2021-04-19 15:38] VITALS: BP 144/80
[2021-04-19] MEDS: LURASIDONE HCL 40MG TAB (LATUDA) PO SCH (20:30)
[2021-04-19] MEDS: hydrOXYzine 50 MG TAB PO PRN (20:30)
[2021-04-19] MEDS: clonazePAM 0.5 MG TAB PO SCH (20:31)
[2021-04-19] MEDS: PRAZOSIN 1 MG CAP PO SCH (20:37)
[2021-04-20 06:44] VITALS: BP 101/53
[2021-04-20] MEDS: NYSTATIN 100,000 UNITS/GM TOPICAL PWD 15 GM TOP SCH ×2 (09:05→21:00)
[2021-04-20] MEDS: OXcarbazepine 300 MG TAB PO SCH ×2 (09:05→21:14)
[2021-04-20] MEDS: BENZTROPINE 0.5 MG TAB PO SCH ×2 (09:05→21:14)
[2021-04-20] MEDS: CLOTRIMAZOLE 1% TOPICAL CREAM 30GM TOP SCH (09:05)
[2021-04-20 16:16] VITALS: BP 135/67
[2021-04-20] MEDS: hydrOXYzine 50 MG TAB PO PRN (17:54)
[2021-04-20] MEDS: clonazePAM 0.5 MG TAB PO SCH (21:14)
[2021-04-20] MEDS: LURASIDONE HCL 40MG TAB (LATUDA) PO SCH (21:14)
[2021-04-20] MEDS: PRAZOSIN 1 MG CAP PO SCH (21:15)
[2021-04-21] MEDS: BENZTROPINE 0.5 MG TAB PO SCH ×2 (09:00→20:46)
[2021-04-21] MEDS: OXcarbazepine 300 MG TAB PO SCH ×2 (09:00→20:46)
[2021-04-21] MEDS: CLOTRIMAZOLE 1% TOPICAL CREAM 30GM TOP SCH (09:01)
[2021-04-21] MEDS: NYSTATIN 100,000 UNITS/GM TOPICAL PWD 15 GM TOP SCH ×2 (09:01→20:47)
[2021-04-21 16:19] VITALS: BP 136/65
[2021-04-21] MEDS: LURASIDONE HCL 40MG TAB (LATUDA) PO SCH (20:46)
[2021-04-21] MEDS: clonazePAM 0.5 MG TAB PO SCH (20:47)
[2021-04-21] MEDS: PRAZOSIN 1 MG CAP PO SCH (20:47)
[2021-04-22 06:59] VITALS: BP 131/75
[2021-04-22] MEDS: OXcarbazepine 300 MG TAB PO SCH ×2 (07:54→20:59)
[2021-04-22] MEDS: BENZTROPINE 0.5 MG TAB PO SCH ×2 (07:54→20:59)
[2021-04-22] MEDS: CLOTRIMAZOLE 1% TOPICAL CREAM 30GM TOP SCH (07:55)
[2021-04-22] MEDS: NYSTATIN 100,000 UNITS/GM TOPICAL PWD 15 GM TOP SCH ×2 (07:55→20:59)
[2021-04-22 16:10] VITALS: BP 114/84
[2021-04-22 19:56] VITALS: BP 114/84
[2021-04-22] MEDS: clonazePAM 0.5 MG TAB PO SCH (20:59)
[2021-04-22] MEDS: LURASIDONE HCL 40MG TAB (LATUDA) PO SCH (20:59)
[2021-04-22] MEDS: PRAZOSIN 1 MG CAP PO SCH (21:01)
[2021-04-23 06:43] VITALS: BP 117/61
[2021-04-23] MEDS: NYSTATIN 100,000 UNITS/GM TOPICAL PWD 15 GM TOP SCH ×2 (08:08→20:56)
[2021-04-23] MEDS: BENZTROPINE 0.5 MG TAB PO SCH ×2 (08:08→20:48)
[2021-04-23] MEDS: CLOTRIMAZOLE 1% TOPICAL CREAM 30GM TOP SCH (08:08)
[2021-04-23] MEDS: OXcarbazepine 300 MG TAB PO SCH ×2 (08:09→20:48)
[2021-04-23 16:00] VITALS: BP 148/70
[2021-04-23] MEDS: clonazePAM 0.5 MG TAB PO SCH (20:48)
[2021-04-23] MEDS: LURASIDONE HCL 40MG TAB (LATUDA) PO SCH (20:48)
[2021-04-23] MEDS: OLANZapine ORAL DISINTEGRATING TAB 5MG PO PRN (20:49)
[2021-04-23] MEDS: PRAZOSIN 1 MG CAP PO SCH (20:51)
[2021-04-24 07:16] VITALS: BP 142/70
[2021-04-24] MEDS: CLOTRIMAZOLE 1% TOPICAL CREAM 30GM TOP SCH (09:06)
[2021-04-24] MEDS: NYSTATIN 100,000 UNITS/GM TOPICAL PWD 15 GM TOP SCH ×2 (09:07→21:00)
[2021-04-24] MEDS: OXcarbazepine 300 MG TAB PO SCH ×2 (09:08→21:18)
[2021-04-24] MEDS: BENZTROPINE 0.5 MG TAB PO SCH ×2 (09:08→21:18)
[2021-04-24 19:09] VITALS: BP 144/82
[2021-04-24] MEDS: LURASIDONE HCL 40MG TAB (LATUDA) PO SCH (21:18)
[2021-04-24] MEDS: clonazePAM 0.5 MG TAB PO SCH (21:19)
[2021-04-24] MEDS: PRAZOSIN 1 MG CAP PO SCH (21:19)
[2021-04-25 06:17] VITALS: BP 124/59
[2021-04-25] MEDS: NYSTATIN 100,000 UNITS/GM TOPICAL PWD 15 GM TOP SCH ×2 (09:02→20:18)
[2021-04-25] MEDS: BENZTROPINE 0.5 MG TAB PO SCH ×2 (09:03→20:17)
[2021-04-25] MEDS: CLOTRIMAZOLE 1% TOPICAL CREAM 30GM TOP SCH (09:03)
[2021-04-25] MEDS: OXcarbazepine 300 MG TAB PO SCH ×2 (09:03→20:17)
[2021-04-25 18:35] VITALS: BP 149/74
[2021-04-25] MEDS: LURASIDONE HCL 40MG TAB (LATUDA) PO SCH (20:17)
[2021-04-25] MEDS: clonazePAM 0.5 MG TAB PO SCH (20:17)
[2021-04-25] MEDS: PRAZOSIN 1 MG CAP PO SCH (20:18)
[2021-04-26 06:28] VITALS: BP 116/56
[2021-04-26] MEDS: BENZTROPINE 0.5 MG TAB PO SCH ×2 (08:43→20:06)
[2021-04-26] MEDS: NYSTATIN 100,000 UNITS/GM TOPICAL PWD 15 GM TOP SCH ×2 (08:44→20:09)
[2021-04-26] MEDS: CLOTRIMAZOLE 1% TOPICAL CREAM 30GM TOP SCH (08:44)
[2021-04-26] MEDS: hydrOXYzine 50 MG TAB PO PRN (08:57)
[2021-04-26] MEDS: OXcarbazepine 300 MG TAB PO SCH ×2 (09:55→20:06)
[2021-04-26 18:00] VITALS: BP 138/82
[2021-04-26] MEDS: LURASIDONE HCL 40MG TAB (LATUDA) PO SCH (20:06)
[2021-04-26] MEDS: clonazePAM 0.5 MG TAB PO SCH (20:06)
[2021-04-26] MEDS: PRAZOSIN 1 MG CAP PO SCH (20:06)
[2021-04-27 06:07] VITALS: BP 110/56
[2021-04-27] MEDS: OXcarbazepine 300 MG TAB PO SCH ×2 (08:27→20:41)
[2021-04-27] MEDS: CLOTRIMAZOLE 1% TOPICAL CREAM 30GM TOP SCH (08:27)
[2021-04-27] MEDS: BENZTROPINE 0.5 MG TAB PO SCH ×2 (08:27→20:41)
[2021-04-27] MEDS: NYSTATIN 100,000 UNITS/GM TOPICAL PWD 15 GM TOP SCH ×2 (08:28→20:42)
[2021-04-27] MEDS: ACETAMINOPHEN TAB 650MG DOSE (2X325MG) PO PRN (08:29)
[2021-04-27 19:12] VITALS: BP 143/78
[2021-04-27] MEDS: clonazePAM 0.5 MG TAB PO SCH (20:40)
[2021-04-27] MEDS: PRAZOSIN 1 MG CAP PO SCH (20:41)
[2021-04-27] MEDS: LURASIDONE HCL 40MG TAB (LATUDA) PO SCH (20:41)
[2021-04-28 06:40] VITALS: BP 120/68
[2021-04-28] MEDS: BENZTROPINE 0.5 MG TAB PO SCH ×2 (09:35→20:51)
[2021-04-28] MEDS: OXcarbazepine 300 MG TAB PO SCH ×2 (09:36→20:51)
[2021-04-28] MEDS: NYSTATIN 100,000 UNITS/GM TOPICAL PWD 15 GM TOP SCH ×2 (09:37→20:51)
[2021-04-28] MEDS: CLOTRIMAZOLE 1% TOPICAL CREAM 30GM TOP SCH (09:38)
[2021-04-28 18:37] VITALS: BP 130/85
[2021-04-28] MEDS: clonazePAM 0.5 MG TAB PO SCH (20:51)
[2021-04-28] MEDS: LURASIDONE HCL 40MG TAB (LATUDA) PO SCH (20:51)
[2021-04-28] MEDS: PRAZOSIN 1 MG CAP PO SCH (20:52)
[2021-04-29 06:51] VITALS: BP 116/54
[2021-04-29] MEDS: BENZTROPINE 0.5 MG TAB PO SCH ×2 (09:29→20:40)
[2021-04-29] MEDS: OXcarbazepine 300 MG TAB PO SCH ×2 (09:29→20:41)
[2021-04-29] MEDS: NYSTATIN 100,000 UNITS/GM TOPICAL PWD 15 GM TOP SCH ×2 (09:30→20:40)
[2021-04-29] MEDS: CLOTRIMAZOLE 1% TOPICAL CREAM 30GM TOP SCH (09:30)
[2021-04-29 18:18] VITALS: BP 136/72
[2021-04-29] MEDS: LURASIDONE HCL 40MG TAB (LATUDA) PO SCH (20:40)
[2021-04-29] MEDS: clonazePAM 0.5 MG TAB PO SCH (20:42)
[2021-04-29] MEDS: PRAZOSIN 1 MG CAP PO SCH (20:42)
[2021-04-30 06:27] VITALS: BP 113/57
[2021-04-30] MEDS: NYSTATIN 100,000 UNITS/GM TOPICAL PWD 15 GM TOP SCH ×2 (09:16→20:53)
[2021-04-30] MEDS: OXcarbazepine 300 MG TAB PO SCH ×2 (09:17→20:54)
[2021-04-30] MEDS: BENZTROPINE 0.5 MG TAB PO SCH ×2 (09:17→20:55)
[2021-04-30] MEDS: CLOTRIMAZOLE 1% TOPICAL CREAM 30GM TOP SCH (09:17)
[2021-04-30 16:57] VITALS: BP 133/74
[2021-04-30] MEDS: ACETAMINOPHEN TAB 650MG DOSE (2X325MG) PO PRN (18:07)
[2021-04-30] MEDS: clonazePAM 0.5 MG TAB PO SCH (20:54)
[2021-04-30] MEDS: LURASIDONE HCL 40MG TAB (LATUDA) PO SCH (20:54)
[2021-04-30] MEDS: PRAZOSIN 1 MG CAP PO SCH (20:55)
[2021-05-01 06:11] VITALS: BP 112/56
[2021-05-01] MEDS: BENZTROPINE 0.5 MG TAB PO SCH ×2 (08:51→20:39)
[2021-05-01] MEDS: OXcarbazepine 300 MG TAB PO SCH ×2 (08:51→20:38)
[2021-05-01] MEDS: NYSTATIN 100,000 UNITS/GM TOPICAL PWD 15 GM TOP SCH ×2 (08:52→20:37)
[2021-05-01] MEDS: CLOTRIMAZOLE 1% TOPICAL CREAM 30GM TOP SCH (08:52)
[2021-05-01] MEDS: hydrOXYzine 50 MG TAB PO SCH ×2 (11:45→20:38)
[2021-05-01 16:26] VITALS: BP 147/68
[2021-05-01] MEDS: PRAZOSIN 1 MG CAP PO SCH (20:38)
[2021-05-01] MEDS: clonazePAM 0.5 MG TAB PO SCH (20:38)
[2021-05-01] MEDS: LURASIDONE HCL 40MG TAB (LATUDA) PO SCH (20:39)
[2021-05-02 06:36] VITALS: BP 144/86
[2021-05-02] MEDS: hydrOXYzine 50 MG TAB PO SCH ×2 (08:20→20:26)
[2021-05-02] MEDS: BENZTROPINE 0.5 MG TAB PO SCH ×2 (08:20→20:26)
[2021-05-02] MEDS: OXcarbazepine 300 MG TAB PO SCH ×2 (08:20→20:26)
[2021-05-02] MEDS: CLOTRIMAZOLE 1% TOPICAL CREAM 30GM TOP SCH (08:20)
[2021-05-02] MEDS: NYSTATIN 100,000 UNITS/GM TOPICAL PWD 15 GM TOP SCH ×2 (08:20→20:27)
[2021-05-02 16:19] VITALS: BP 139/73
[2021-05-02] MEDS: clonazePAM 0.5 MG TAB PO SCH (20:25)
[2021-05-02] MEDS: PRAZOSIN 1 MG CAP PO SCH (20:26)
[2021-05-02] MEDS: LURASIDONE HCL 40MG TAB (LATUDA) PO SCH (20:26)
[2021-05-03 06:52] VITALS: BP 143/65
[2021-05-03] MEDS: NYSTATIN 100,000 UNITS/GM TOPICAL PWD 15 GM TOP SCH ×2 (08:35→21:06)
[2021-05-03] MEDS: BENZTROPINE 0.5 MG TAB PO SCH ×2 (08:35→21:07)
[2021-05-03] MEDS: hydrOXYzine 50 MG TAB PO SCH ×2 (08:36→21:07)
[2021-05-03] MEDS: OXcarbazepine 300 MG TAB PO SCH ×2 (08:36→21:07)
[2021-05-03] MEDS: CLOTRIMAZOLE 1% TOPICAL CREAM 30GM TOP SCH (08:37)
[2021-05-03 18:42] VITALS: BP 145/77
[2021-05-03] MEDS: LURASIDONE HCL 40MG TAB (LATUDA) PO SCH (21:06)
[2021-05-03] MEDS: clonazePAM 0.5 MG TAB PO SCH (21:07)
[2021-05-03] MEDS: PRAZOSIN 1 MG CAP PO SCH (21:07)
[2021-05-04 06:30] VITALS: BP 125/60
[2021-05-04] MEDS: OXcarbazepine 300 MG TAB PO SCH ×2 (08:58→20:52)
[2021-05-04] MEDS: hydrOXYzine 50 MG TAB PO SCH ×2 (08:58→20:51)
[2021-05-04] MEDS: CLOTRIMAZOLE 1% TOPICAL CREAM 30GM TOP SCH (08:58)
[2021-05-04] MEDS: BENZTROPINE 0.5 MG TAB PO SCH ×2 (08:59→20:51)
[2021-05-04] MEDS: NYSTATIN 100,000 UNITS/GM TOPICAL PWD 15 GM TOP SCH ×2 (08:59→20:51)
[2021-05-04 13:30] VITALS: BP 125/60
[2021-05-04 18:27] VITALS: BP 151/77
[2021-05-04] MEDS: LURASIDONE HCL 40MG TAB (LATUDA) PO SCH (20:51)
[2021-05-04] MEDS: PRAZOSIN 1 MG CAP PO SCH (20:51)
[2021-05-04] MEDS: clonazePAM 0.5 MG TAB PO SCH (20:51)
[2021-05-05 06:21] VITALS: BP 102/50
[2021-05-05] MEDS: OXcarbazepine 300 MG TAB PO SCH ×2 (09:17→20:49)
[2021-05-05] MEDS: CLOTRIMAZOLE 1% TOPICAL CREAM 30GM TOP SCH (09:18)
[2021-05-05] MEDS: BENZTROPINE 0.5 MG TAB PO SCH ×2 (09:18→20:49)
[2021-05-05] MEDS: hydrOXYzine 50 MG TAB PO SCH ×2 (09:18→20:49)
[2021-05-05] MEDS: NYSTATIN 100,000 UNITS/GM TOPICAL PWD 15 GM TOP SCH ×2 (09:18→20:52)
[2021-05-05 16:35] VITALS: BP 140/70
[2021-05-05] MEDS: OLANZapine ORAL DISINTEGRATING TAB 5MG PO PRN (17:20)
[2021-05-05] MEDS: clonazePAM 0.5 MG TAB PO SCH (20:49)
[2021-05-05] MEDS: LURASIDONE HCL 40MG TAB (LATUDA) PO SCH (20:49)
[2021-05-05] MEDS: PRAZOSIN 1 MG CAP PO SCH (20:49)
[2021-05-06 06:31] VITALS: BP 123/62
[2021-05-06] MEDS: hydrOXYzine 50 MG TAB PO SCH ×2 (08:56→20:19)
[2021-05-06] MEDS: CLOTRIMAZOLE 1% TOPICAL CREAM 30GM TOP SCH (08:56)
[2021-05-06] MEDS: BENZTROPINE 0.5 MG TAB PO SCH ×2 (08:56→20:19)
[2021-05-06] MEDS: NYSTATIN 100,000 UNITS/GM TOPICAL PWD 15 GM TOP SCH ×2 (08:56→20:18)
[2021-05-06] MEDS: OXcarbazepine 300 MG TAB PO SCH ×2 (08:56→20:19)
[2021-05-06 16:25] VITALS: BP 127/73
[2021-05-06] MEDS: OLANZapine ORAL DISINTEGRATING TAB 5MG PO PRN (18:28)
[2021-05-06] MEDS: clonazePAM 0.5 MG TAB PO SCH (20:18)
[2021-05-06] MEDS: LURASIDONE HCL 40MG TAB (LATUDA) PO SCH (20:19)
[2021-05-06] MEDS: PRAZOSIN 1 MG CAP PO SCH (20:19)
[2021-05-07 06:32] VITALS: BP 110/61
[2021-05-07] MEDS: OXcarbazepine 300 MG TAB PO SCH ×2 (08:24→20:35)
[2021-05-07] MEDS: BENZTROPINE 0.5 MG TAB PO SCH ×2 (08:24→20:34)
[2021-05-07] MEDS: hydrOXYzine 50 MG TAB PO SCH ×2 (08:24→20:34)
[2021-05-07] MEDS: NYSTATIN 100,000 UNITS/GM TOPICAL PWD 15 GM TOP SCH ×2 (08:25→20:33)
[2021-05-07] MEDS: CLOTRIMAZOLE 1% TOPICAL CREAM 30GM TOP SCH (08:25)
[2021-05-07 19:14] VITALS: BP 118/70
[2021-05-07] MEDS: ACETAMINOPHEN TAB 650MG DOSE (2X325MG) PO PRN (19:21)
[2021-05-07] MEDS: PRAZOSIN 1 MG CAP PO SCH (20:34)
[2021-05-07] MEDS: LURASIDONE HCL 40MG TAB (LATUDA) PO SCH (20:34)
[2021-05-07] MEDS: clonazePAM 0.5 MG TAB PO SCH (20:35)
[2021-05-08 06:21] VITALS: BP 114/54
[2021-05-08] MEDS: BENZTROPINE 0.5 MG TAB PO SCH ×2 (08:11→20:05)
[2021-05-08] MEDS: OXcarbazepine 300 MG TAB PO SCH ×2 (08:11→20:06)
[2021-05-08] MEDS: NYSTATIN 100,000 UNITS/GM TOPICAL PWD 15 GM TOP SCH ×2 (08:11→20:05)
[2021-05-08] MEDS: CLOTRIMAZOLE 1% TOPICAL CREAM 30GM TOP SCH (08:11)
[2021-05-08] MEDS: hydrOXYzine 50 MG TAB PO SCH ×2 (08:11→20:05)
[2021-05-08 18:47] VITALS: BP 146/68
[2021-05-08] MEDS: LURASIDONE HCL 40MG TAB (LATUDA) PO SCH (20:05)
[2021-05-08] MEDS: clonazePAM 0.5 MG TAB PO SCH (20:06)
[2021-05-08] MEDS: PRAZOSIN 1 MG CAP PO SCH (20:06)
[2021-05-09 06:00] VITALS: BP 139/79
[2021-05-09] MEDS: hydrOXYzine 50 MG TAB PO SCH ×2 (08:12→20:08)
[2021-05-09] MEDS: BENZTROPINE 0.5 MG TAB PO SCH ×2 (08:12→20:08)
[2021-05-09] MEDS: OXcarbazepine 300 MG TAB PO SCH ×2 (08:12→20:08)
[2021-05-09] MEDS: NYSTATIN 100,000 UNITS/GM TOPICAL PWD 15 GM TOP SCH ×2 (08:13→20:09)
[2021-05-09] MEDS: CLOTRIMAZOLE 1% TOPICAL CREAM 30GM TOP SCH (08:13)
[2021-05-09 17:56] VITALS: BP 135/80
[2021-05-09] MEDS: PRAZOSIN 1 MG CAP PO SCH (20:08)
[2021-05-09] MEDS: clonazePAM 0.5 MG TAB PO SCH (20:08)
[2021-05-09] MEDS: LURASIDONE HCL 40MG TAB (LATUDA) PO SCH (20:08)
[2021-05-10 06:55] VITALS: BP 103/55
[2021-05-10] MEDS: NYSTATIN 100,000 UNITS/GM TOPICAL PWD 15 GM TOP SCH ×2 (09:00→20:08)
[2021-05-10] MEDS: hydrOXYzine 50 MG TAB PO SCH ×2 (09:00→20:09)
[2021-05-10] MEDS: BENZTROPINE 0.5 MG TAB PO SCH ×2 (09:00→20:08)
[2021-05-10] MEDS: CLOTRIMAZOLE 1% TOPICAL CREAM 30GM TOP SCH (09:00)
[2021-05-10] MEDS: OXcarbazepine 300 MG TAB PO SCH ×2 (09:00→20:08)
[2021-05-10 17:37] VITALS: BP 124/64
[2021-05-10] MEDS: clonazePAM 0.5 MG TAB PO SCH (20:08)
[2021-05-10] MEDS: LURASIDONE HCL 40MG TAB (LATUDA) PO SCH (20:08)
[2021-05-10] MEDS: PRAZOSIN 1 MG CAP PO SCH (20:09)
[2021-05-11 06:50] VITALS: BP 96/58
[2021-05-11] MEDS: BENZTROPINE 0.5 MG TAB PO SCH ×2 (09:01→20:27)
[2021-05-11] MEDS: OXcarbazepine 300 MG TAB PO SCH ×2 (09:02→20:26)
[2021-05-11] MEDS: CLOTRIMAZOLE 1% TOPICAL CREAM 30GM TOP SCH (09:02)
[2021-05-11] MEDS: hydrOXYzine 50 MG TAB PO SCH ×2 (09:02→20:27)
[2021-05-11] MEDS: NYSTATIN 100,000 UNITS/GM TOPICAL PWD 15 GM TOP SCH ×2 (09:03→20:25)
[2021-05-11 17:56] VITALS: BP 148/76
[2021-05-11] MEDS: clonazePAM 0.5 MG TAB PO SCH (20:26)
[2021-05-11] MEDS: PRAZOSIN 1 MG CAP PO SCH (20:27)
[2021-05-11] MEDS: LURASIDONE HCL 40MG TAB (LATUDA) PO SCH (20:27)
[2021-05-12 06:35] VITALS: BP 129/58
[2021-05-12] MEDS: BENZTROPINE 0.5 MG TAB PO SCH ×2 (08:43→20:36)
[2021-05-12] MEDS: OXcarbazepine 300 MG TAB PO SCH ×2 (08:43→20:36)
[2021-05-12] MEDS: hydrOXYzine 50 MG TAB PO SCH ×2 (08:43→20:36)
[2021-05-12] MEDS: CLOTRIMAZOLE 1% TOPICAL CREAM 30GM TOP SCH (08:44)
[2021-05-12] MEDS: NYSTATIN 100,000 UNITS/GM TOPICAL PWD 15 GM TOP SCH ×2 (08:45→20:36)
[2021-05-12 19:08] VITALS: BP 154/80
[2021-05-12] MEDS: clonazePAM 0.5 MG TAB PO SCH (20:35)
[2021-05-12] MEDS: LURASIDONE HCL 40MG TAB (LATUDA) PO SCH (20:36)
[2021-05-12] MEDS: PRAZOSIN 1 MG CAP PO SCH (20:37)
[2021-05-13 06:44] VITALS: BP 125/53
[2021-05-13] MEDS: BENZTROPINE 0.5 MG TAB PO SCH ×2 (08:58→20:42)
[2021-05-13] MEDS: OXcarbazepine 300 MG TAB PO SCH ×2 (08:59→20:41)
[2021-05-13] MEDS: hydrOXYzine 50 MG TAB PO SCH ×2 (08:59→20:42)
[2021-05-13] MEDS: NYSTATIN 100,000 UNITS/GM TOPICAL PWD 15 GM TOP SCH ×2 (09:02→20:42)
[2021-05-13] MEDS: CLOTRIMAZOLE 1% TOPICAL CREAM 30GM TOP SCH (09:02)
[2021-05-13 18:51] VITALS: BP 107/62
[2021-05-13] MEDS: clonazePAM 0.5 MG TAB PO SCH (20:41)
[2021-05-13] MEDS: PRAZOSIN 1 MG CAP PO SCH (20:42)
[2021-05-13] MEDS: LURASIDONE HCL 40MG TAB (LATUDA) PO SCH (20:42)
[2021-05-14 06:39] VITALS: BP 123/56
[2021-05-14] MEDS: OXcarbazepine 300 MG TAB PO SCH ×2 (08:51→20:19)
[2021-05-14] MEDS: BENZTROPINE 0.5 MG TAB PO SCH ×2 (08:51→20:17)
[2021-05-14] MEDS: hydrOXYzine 50 MG TAB PO SCH ×2 (08:51→20:18)
[2021-05-14] MEDS: NYSTATIN 100,000 UNITS/GM TOPICAL PWD 15 GM TOP SCH ×2 (08:52→20:17)
[2021-05-14] MEDS: CLOTRIMAZOLE 1% TOPICAL CREAM 30GM TOP SCH (08:53)
[2021-05-14 16:12] VITALS: BP 137/72
[2021-05-14] MEDS: LURASIDONE HCL 40MG TAB (LATUDA) PO SCH (20:17)
[2021-05-14] MEDS: PRAZOSIN 1 MG CAP PO SCH (20:18)
[2021-05-14] MEDS: clonazePAM 0.5 MG TAB PO SCH (20:19)
[2021-05-15 06:26] VITALS: BP 132/60
[2021-05-15] MEDS: hydrOXYzine 50 MG TAB PO SCH ×2 (08:49→20:25)
[2021-05-15] MEDS: OXcarbazepine 300 MG TAB PO SCH ×2 (08:49→20:27)
[2021-05-15] MEDS: BENZTROPINE 0.5 MG TAB PO SCH ×2 (08:49→20:26)
[2021-05-15] MEDS: CLOTRIMAZOLE 1% TOPICAL CREAM 30GM TOP SCH (08:51)
[2021-05-15] MEDS: NYSTATIN 100,000 UNITS/GM TOPICAL PWD 15 GM TOP SCH ×2 (08:51→20:24)
[2021-05-15 10:36] LABS: APPEARANCE, URINE CLEAR (CLEAR); BACTERIA, URINE AUTO NEGATIVE (NEGATIVE); BILIRUBIN, URINE AUTO NEGATIVE (NEGATIVE); BLOOD, URINE BLOOD NEGATIVE (NEGATIVE); COLOR, URINE YELLOW (YELLOW); GLUCOSE, URINE (UA) AUTO NEGATIVE (NEGATIVE); KETONE, URINE AUTO NEGATIVE (NEGATIVE); LEUKOCYTE ESTERASE, URINE AUTO TRACE (NEGATIVE); NITRITE, URINE AUTO NEGATIVE (NEGATIVE); PROTEIN, URINE AUTO NEGATIVE (NEGATIVE); RBC, URINE AUTO 0 /HPF (0-3); SPECIFIC GRAVITY URINE AUTO 1.009 (1.002-1.035); SQUAMOUS EPITHELIAL CELL UR AU 1 /HPF (0-6); UROBILINOGEN, URINE AUTO 0.2 mg/dL (0.0-2.0); WBC, URINE AUTO 1 /HPF (0-3)
[2021-05-15 17:22] VITALS: BP 130/65
[2021-05-15] MEDS: LURASIDONE HCL 40MG TAB (LATUDA) PO SCH (20:24)
[2021-05-15] MEDS: PRAZOSIN 1 MG CAP PO SCH (20:26)
[2021-05-15] MEDS: clonazePAM 0.5 MG TAB PO SCH (20:33)
[2021-05-16 06:31] VITALS: BP 120/57
[2021-05-16] MEDS: OXcarbazepine 300 MG TAB PO SCH ×2 (08:27→20:22)
[2021-05-16] MEDS: BENZTROPINE 0.5 MG TAB PO SCH ×2 (08:28→20:23)
[2021-05-16] MEDS: hydrOXYzine 50 MG TAB PO SCH ×2 (08:28→20:22)
[2021-05-16] MEDS: NYSTATIN 100,000 UNITS/GM TOPICAL PWD 15 GM TOP SCH ×2 (08:29→20:22)
[2021-05-16] MEDS: CLOTRIMAZOLE 1% TOPICAL CREAM 30GM TOP SCH (08:30)
[2021-05-16 17:24] VITALS: BP 139/71
[2021-05-16] MEDS: LURASIDONE HCL 40MG TAB (LATUDA) PO SCH (20:22)
[2021-05-16] MEDS: PRAZOSIN 1 MG CAP PO SCH (20:22)
[2021-05-16] MEDS: clonazePAM 0.5 MG TAB PO SCH (20:23)
[2021-05-17 06:46] VITALS: BP 115/62
[2021-05-17] MEDS: BENZTROPINE 0.5 MG TAB PO SCH ×2 (08:46→20:15)
[2021-05-17] MEDS: hydrOXYzine 50 MG TAB PO SCH ×2 (08:46→20:15)
[2021-05-17] MEDS: CLOTRIMAZOLE 1% TOPICAL CREAM 30GM TOP SCH (08:46)
[2021-05-17] MEDS: OXcarbazepine 300 MG TAB PO SCH ×2 (08:46→20:14)
[2021-05-17] MEDS: NYSTATIN 100,000 UNITS/GM TOPICAL PWD 15 GM TOP SCH ×2 (08:47→20:14)
[2021-05-17 18:32] VITALS: BP 129/64
[2021-05-17] MEDS: PRAZOSIN 1 MG CAP PO SCH (20:15)
[2021-05-17] MEDS: clonazePAM 0.5 MG TAB PO SCH (20:15)
[2021-05-17] MEDS: LURASIDONE HCL 40MG TAB (LATUDA) PO SCH (20:15)
[2021-05-18 06:32] VITALS: BP 158/84
[2021-05-18] MEDS: BENZTROPINE 0.5 MG TAB PO SCH ×2 (08:57→20:38)
[2021-05-18] MEDS: OXcarbazepine 300 MG TAB PO SCH ×2 (08:57→20:38)
[2021-05-18] MEDS: hydrOXYzine 50 MG TAB PO SCH ×2 (08:57→20:37)
[2021-05-18] MEDS: NYSTATIN 100,000 UNITS/GM TOPICAL PWD 15 GM TOP SCH ×2 (08:58→20:39)
[2021-05-18] MEDS: CLOTRIMAZOLE 1% TOPICAL CREAM 30GM TOP SCH (08:58)
[2021-05-18 16:11] VITALS: BP 142/78
[2021-05-18] MEDS: LURASIDONE HCL 40MG TAB (LATUDA) PO SCH (20:38)
[2021-05-18] MEDS: clonazePAM 0.5 MG TAB PO SCH (20:38)
[2021-05-18] MEDS: PRAZOSIN 1 MG CAP PO SCH (20:38)
[2021-05-19 06:41] VITALS: BP 120/55
[2021-05-19] MEDS: hydrOXYzine 50 MG TAB PO SCH ×2 (08:56→20:31)
[2021-05-19] MEDS: CLOTRIMAZOLE 1% TOPICAL CREAM 30GM TOP SCH (08:58)
[2021-05-19] MEDS: OXcarbazepine 300 MG TAB PO SCH ×2 (08:58→20:30)
[2021-05-19] MEDS: BENZTROPINE 0.5 MG TAB PO SCH ×2 (08:58→20:30)
[2021-05-19] MEDS: NYSTATIN 100,000 UNITS/GM TOPICAL PWD 15 GM TOP SCH ×2 (08:58→20:30)
[2021-05-19 16:17] VITALS: BP 147/68
[2021-05-19] MEDS: clonazePAM 0.5 MG TAB PO SCH (20:31)
[2021-05-19] MEDS: PRAZOSIN 1 MG CAP PO SCH (20:31)
[2021-05-19] MEDS: LURASIDONE HCL 40MG TAB (LATUDA) PO SCH (20:31)
[2021-05-20 06:25] VITALS: BP 123/56
[2021-05-20] MEDS: NYSTATIN 100,000 UNITS/GM TOPICAL PWD 15 GM TOP SCH ×2 (08:58→20:31)
[2021-05-20] MEDS: CLOTRIMAZOLE 1% TOPICAL CREAM 30GM TOP SCH (08:58)
[2021-05-20] MEDS: OXcarbazepine 300 MG TAB PO SCH ×2 (08:58→20:31)
[2021-05-20] MEDS: hydrOXYzine 50 MG TAB PO SCH ×2 (08:58→20:30)
[2021-05-20] MEDS: BENZTROPINE 0.5 MG TAB PO SCH ×2 (08:58→20:30)
[2021-05-20 16:39] VITALS: BP 138/72
[2021-05-20] MEDS: LURASIDONE HCL 40MG TAB (LATUDA) PO SCH (20:30)
[2021-05-20] MEDS: PRAZOSIN 1 MG CAP PO SCH (20:30)
[2021-05-20] MEDS: clonazePAM 0.5 MG TAB PO SCH (20:31)
[2021-05-21 06:36] VITALS: BP 117/56
[2021-05-21] MEDS: BENZTROPINE 0.5 MG TAB PO SCH ×2 (09:06→20:05)
[2021-05-21] MEDS: OXcarbazepine 300 MG TAB PO SCH ×2 (09:07→20:04)
[2021-05-21] MEDS: hydrOXYzine 50 MG TAB PO SCH ×2 (09:07→20:05)
[2021-05-21] MEDS: NYSTATIN 100,000 UNITS/GM TOPICAL PWD 15 GM TOP SCH ×2 (09:08→20:05)
[2021-05-21] MEDS: CLOTRIMAZOLE 1% TOPICAL CREAM 30GM TOP SCH (09:08)
[2021-05-21] MEDS: PRAZOSIN 1 MG CAP PO SCH (20:04)
[2021-05-21] MEDS: LURASIDONE HCL 40MG TAB (LATUDA) PO SCH (20:04)
[2021-05-21] MEDS: clonazePAM 0.5 MG TAB PO SCH (20:05)
[2021-05-22 06:50] VITALS: BP 117/59
[2021-05-22] MEDS: BENZTROPINE 0.5 MG TAB PO SCH ×2 (08:58→20:20)
[2021-05-22] MEDS: OXcarbazepine 300 MG TAB PO SCH ×2 (08:58→20:20)
[2021-05-22] MEDS: hydrOXYzine 50 MG TAB PO SCH ×2 (08:58→20:20)
[2021-05-22] MEDS: CLOTRIMAZOLE 1% TOPICAL CREAM 30GM TOP SCH (09:05)
[2021-05-22] MEDS: NYSTATIN 100,000 UNITS/GM TOPICAL PWD 15 GM TOP SCH ×2 (09:05→20:21)
[2021-05-22 18:42] VITALS: BP 154/87
[2021-05-22] MEDS: LURASIDONE HCL 40MG TAB (LATUDA) PO SCH (20:20)
[2021-05-22] MEDS: clonazePAM 0.5 MG TAB PO SCH (20:20)
[2021-05-22] MEDS: PRAZOSIN 1 MG CAP PO SCH (20:23)
[2021-05-23 06:27] VITALS: BP 137/66
[2021-05-23] MEDS: BENZTROPINE 0.5 MG TAB PO SCH ×2 (08:36→20:28)
[2021-05-23] MEDS: NYSTATIN 100,000 UNITS/GM TOPICAL PWD 15 GM TOP SCH ×2 (08:36→20:28)
[2021-05-23] MEDS: CLOTRIMAZOLE 1% TOPICAL CREAM 30GM TOP SCH (08:36)
[2021-05-23] MEDS: OXcarbazepine 300 MG TAB PO SCH ×2 (08:37→20:28)
[2021-05-23] MEDS: hydrOXYzine 50 MG TAB PO SCH ×2 (08:38→20:28)
[2021-05-23] MEDS: LURASIDONE 20 MG TAB (LATUDA) PO SCH (12:45)
[2021-05-23 18:00] VITALS: BP 134/81
[2021-05-23] MEDS: LURASIDONE HCL 40MG TAB (LATUDA) PO SCH (20:28)
[2021-05-23] MEDS: clonazePAM 0.5 MG TAB PO SCH (20:28)
[2021-05-23] MEDS: PRAZOSIN 1 MG CAP PO SCH (20:29)
[2021-05-23] MEDS: traZODone 25MG PER 1/2 TABLET PO PRN (22:56)
[2021-05-24 06:22] VITALS: BP 157/63
[2021-05-24] MEDS: OXcarbazepine 300 MG TAB PO SCH ×2 (09:07→20:10)
[2021-05-24] MEDS: NYSTATIN 100,000 UNITS/GM TOPICAL PWD 15 GM TOP SCH ×2 (09:07→20:11)
[2021-05-24] MEDS: hydrOXYzine 50 MG TAB PO SCH ×2 (09:07→20:10)
[2021-05-24] MEDS: BENZTROPINE 0.5 MG TAB PO SCH ×2 (09:08→20:10)
[2021-05-24] MEDS: CLOTRIMAZOLE 1% TOPICAL CREAM 30GM TOP SCH (09:08)
[2021-05-24] MEDS: LURASIDONE 20 MG TAB (LATUDA) PO SCH (09:12)
[2021-05-24] MEDS: OLANZapine ORAL DISINTEGRATING TAB 5MG PO PRN (18:06)
[2021-05-24 18:33] VITALS: BP 143/67
[2021-05-24] MEDS: LURASIDONE HCL 40MG TAB (LATUDA) PO SCH (20:10)
[2021-05-24] MEDS: clonazePAM 0.5 MG TAB PO SCH (20:10)
[2021-05-24] MEDS: PRAZOSIN 1 MG CAP PO SCH (20:11)
[2021-05-25 07:34] VITALS: BP 114/56
[2021-05-25] MEDS: LURASIDONE 20 MG TAB (LATUDA) PO SCH (08:15)
[2021-05-25] MEDS: CLOTRIMAZOLE 1% TOPICAL CREAM 30GM TOP SCH (08:57)
[2021-05-25] MEDS: NYSTATIN 100,000 UNITS/GM TOPICAL PWD 15 GM TOP SCH ×2 (08:58→21:00)
[2021-05-25] MEDS: OXcarbazepine 300 MG TAB PO SCH ×2 (08:58→21:12)
[2021-05-25] MEDS: BENZTROPINE 0.5 MG TAB PO SCH ×2 (08:58→21:13)
[2021-05-25] MEDS: hydrOXYzine 50 MG TAB PO SCH ×2 (08:59→21:12)
[2021-05-25] MEDS: OLANZapine ORAL DISINTEGRATING TAB 5MG PO PRN (17:16)
[2021-05-25 19:00] VITALS: BP 138/80
[2021-05-25] MEDS: ACETAMINOPHEN TAB 650MG DOSE (2X325MG) PO PRN (21:12)
[2021-05-25] MEDS: clonazePAM 0.5 MG TAB PO SCH (21:12)
[2021-05-25] MEDS: LURASIDONE HCL 40MG TAB (LATUDA) PO SCH (21:12)
[2021-05-25] MEDS: PRAZOSIN 1 MG CAP PO SCH (21:12)
[2021-05-26 06:24] VITALS: BP 126/60
[2021-05-26] MEDS: LURASIDONE 20 MG TAB (LATUDA) PO SCH (08:01)
[2021-05-26] MEDS: BENZTROPINE 0.5 MG TAB PO SCH ×2 (08:30→20:27)
[2021-05-26] MEDS: hydrOXYzine 50 MG TAB PO SCH ×2 (08:30→20:27)
[2021-05-26] MEDS: OXcarbazepine 300 MG TAB PO SCH ×2 (08:30→20:27)
[2021-05-26] MEDS: NYSTATIN 100,000 UNITS/GM TOPICAL PWD 15 GM TOP SCH ×2 (08:30→20:25)
[2021-05-26] MEDS: CLOTRIMAZOLE 1% TOPICAL CREAM 30GM TOP SCH (08:31)
[2021-05-26 17:59] VITALS: BP 129/87
[2021-05-26] MEDS: PRAZOSIN 1 MG CAP PO SCH (20:27)
[2021-05-26] MEDS: clonazePAM 0.5 MG TAB PO SCH (20:27)
[2021-05-26] MEDS: LURASIDONE HCL 40MG TAB (LATUDA) PO SCH (20:27)
[2021-05-27 07:39] VITALS: BP 126/56
[2021-05-27] MEDS: BENZTROPINE 0.5 MG TAB PO SCH ×2 (08:31→20:10)
[2021-05-27] MEDS: LURASIDONE 20 MG TAB (LATUDA) PO SCH (08:31)
[2021-05-27] MEDS: OXcarbazepine 300 MG TAB PO SCH ×2 (08:32→20:10)
[2021-05-27] MEDS: NYSTATIN 100,000 UNITS/GM TOPICAL PWD 15 GM TOP SCH ×2 (08:33→20:11)
[2021-05-27] MEDS: hydrOXYzine 50 MG TAB PO SCH ×2 (08:33→20:10)
[2021-05-27] MEDS: CLOTRIMAZOLE 1% TOPICAL CREAM 30GM TOP SCH (08:34)
[2021-05-27] MEDS: OLANZapine ORAL DISINTEGRATING TAB 5MG PO PRN (09:44)
[2021-05-27 19:18] VITALS: BP 156/75
[2021-05-27] MEDS: clonazePAM 0.5 MG TAB PO SCH (20:10)
[2021-05-27] MEDS: LURASIDONE HCL 40MG TAB (LATUDA) PO SCH (20:10)
[2021-05-27] MEDS: PRAZOSIN 1 MG CAP PO SCH (20:10)
[2021-05-28 06:41] VITALS: BP 140/63
[2021-05-28] MEDS: CLOTRIMAZOLE 1% TOPICAL CREAM 30GM TOP SCH (09:01)
[2021-05-28] MEDS: BENZTROPINE 0.5 MG TAB PO SCH ×2 (09:01→20:07)
[2021-05-28] MEDS: OXcarbazepine 300 MG TAB PO SCH ×2 (09:01→20:07)
[2021-05-28] MEDS: hydrOXYzine 50 MG TAB PO SCH ×2 (09:01→20:07)
[2021-05-28] MEDS: NYSTATIN 100,000 UNITS/GM TOPICAL PWD 15 GM TOP SCH ×2 (09:02→20:07)
[2021-05-28 16:19] VITALS: BP 142/69
[2021-05-28] MEDS: clonazePAM 0.5 MG TAB PO SCH (20:07)
[2021-05-28] MEDS: LURASIDONE HCL 40MG TAB (LATUDA) PO SCH (20:07)
[2021-05-28] MEDS: PRAZOSIN 1 MG CAP PO SCH (20:08)
[2021-05-29 06:56] VITALS: BP 131/62
[2021-05-29] MEDS: CLOTRIMAZOLE 1% TOPICAL CREAM 30GM TOP SCH (08:46)
[2021-05-29] MEDS: BENZTROPINE 0.5 MG TAB PO SCH ×2 (08:47→20:12)
[2021-05-29] MEDS: OXcarbazepine 300 MG TAB PO SCH ×2 (08:47→20:12)
[2021-05-29] MEDS: hydrOXYzine 50 MG TAB PO SCH ×2 (08:47→20:12)
[2021-05-29] MEDS: NYSTATIN 100,000 UNITS/GM TOPICAL PWD 15 GM TOP SCH ×2 (08:48→20:11)
[2021-05-29 16:29] VITALS: BP 148/78
[2021-05-29] MEDS: clonazePAM 0.5 MG TAB PO SCH (20:12)
[2021-05-29] MEDS: PRAZOSIN 1 MG CAP PO SCH (20:12)
[2021-05-29] MEDS: LURASIDONE HCL 40MG TAB (LATUDA) PO SCH (20:12)
[2021-05-30 07:07] VITALS: BP 147/62
[2021-05-30] MEDS: NYSTATIN 100,000 UNITS/GM TOPICAL PWD 15 GM TOP SCH ×2 (08:37→20:04)
[2021-05-30] MEDS: CLOTRIMAZOLE 1% TOPICAL CREAM 30GM TOP SCH (08:37)
[2021-05-30] MEDS: hydrOXYzine 50 MG TAB PO SCH ×2 (08:38→20:05)
[2021-05-30] MEDS: BENZTROPINE 0.5 MG TAB PO SCH ×2 (08:38→20:05)
[2021-05-30] MEDS: OXcarbazepine 300 MG TAB PO SCH ×2 (08:38→20:05)
[2021-05-30 16:18] VITALS: BP 142/80
[2021-05-30] MEDS: clonazePAM 0.5 MG TAB PO SCH (20:05)
[2021-05-30] MEDS: LURASIDONE HCL 40MG TAB (LATUDA) PO SCH (20:05)
[2021-05-30] MEDS: PRAZOSIN 1 MG CAP PO SCH (20:05)
[2021-05-31 06:15] VITALS: BP 112/56
[2021-05-31] MEDS: CLOTRIMAZOLE 1% TOPICAL CREAM 30GM TOP SCH (08:37)
[2021-05-31] MEDS: NYSTATIN 100,000 UNITS/GM TOPICAL PWD 15 GM TOP SCH ×2 (08:37→20:38)
[2021-05-31] MEDS: OXcarbazepine 300 MG TAB PO SCH ×2 (08:37→20:39)
[2021-05-31] MEDS: BENZTROPINE 0.5 MG TAB PO SCH ×2 (08:37→20:38)
[2021-05-31] MEDS: hydrOXYzine 50 MG TAB PO SCH ×2 (08:37→20:38)
[2021-05-31 17:56] VITALS: BP 158/88
[2021-05-31] MEDS: clonazePAM 0.5 MG TAB PO SCH (20:37)
[2021-05-31] MEDS: PRAZOSIN 1 MG CAP PO SCH (20:39)
[2021-05-31] MEDS: LURASIDONE HCL 40MG TAB (LATUDA) PO SCH (20:39)
[2021-05-31] MEDS: traZODone 25MG PER 1/2 TABLET PO PRN (21:52)
[2021-06-01 06:56] VITALS: BP 120/56
[2021-06-01] MEDS: OXcarbazepine 300 MG TAB PO SCH ×2 (09:37→20:07)
[2021-06-01] MEDS: hydrOXYzine 50 MG TAB PO SCH ×2 (09:38→20:07)
[2021-06-01] MEDS: BENZTROPINE 0.5 MG TAB PO SCH ×2 (09:38→20:06)
[2021-06-01] MEDS: CLOTRIMAZOLE 1% TOPICAL CREAM 30GM TOP SCH (09:38)
[2021-06-01] MEDS: NYSTATIN 100,000 UNITS/GM TOPICAL PWD 15 GM TOP SCH ×2 (09:38→20:06)
[2021-06-01 16:55] VITALS: BP 140/77
[2021-06-01] MEDS: LURASIDONE HCL 40MG TAB (LATUDA) PO SCH (20:06)
[2021-06-01] MEDS: clonazePAM 0.5 MG TAB PO SCH (20:07)
[2021-06-01] MEDS: PRAZOSIN 1 MG CAP PO SCH (20:08)
[2021-06-02 06:32] VITALS: BP 123/58
[2021-06-02] MEDS: OXcarbazepine 300 MG TAB PO SCH ×2 (08:33→20:42)
[2021-06-02] MEDS: hydrOXYzine 50 MG TAB PO SCH ×2 (08:33→20:40)
[2021-06-02] MEDS: NYSTATIN 100,000 UNITS/GM TOPICAL PWD 15 GM TOP SCH ×2 (08:33→20:39)
[2021-06-02] MEDS: BENZTROPINE 0.5 MG TAB PO SCH ×2 (08:33→20:42)
[2021-06-02] MEDS: CLOTRIMAZOLE 1% TOPICAL CREAM 30GM TOP SCH (08:34)
[2021-06-02 19:15] VITALS: BP 131/66
[2021-06-02] MEDS: clonazePAM 0.5 MG TAB PO SCH (20:40)
[2021-06-02] MEDS: LURASIDONE HCL 40MG TAB (LATUDA) PO SCH (20:42)
[2021-06-02] MEDS: PRAZOSIN 1 MG CAP PO SCH (20:42)
[2021-06-03 06:20] VITALS: BP 130/64
[2021-06-03] MEDS: NYSTATIN 100,000 UNITS/GM TOPICAL PWD 15 GM TOP SCH ×2 (09:00→20:43)
[2021-06-03] MEDS: OXcarbazepine 300 MG TAB PO SCH ×2 (09:04→20:44)
[2021-06-03] MEDS: hydrOXYzine 50 MG TAB PO SCH ×2 (09:04→20:43)
[2021-06-03] MEDS: BENZTROPINE 0.5 MG TAB PO SCH ×2 (09:04→20:43)
[2021-06-03] MEDS: CLOTRIMAZOLE 1% TOPICAL CREAM 30GM TOP SCH (09:05)
[2021-06-03] MEDS: OLANZapine ORAL DISINTEGRATING TAB 5MG PO PRN (20:43)
[2021-06-03] MEDS: clonazePAM 0.5 MG TAB PO SCH (20:43)
[2021-06-03] MEDS: LURASIDONE HCL 40MG TAB (LATUDA) PO SCH (20:43)
[2021-06-03] MEDS: PRAZOSIN 1 MG CAP PO SCH (20:44)
[2021-06-04 06:55] VITALS: BP 124/77
[2021-06-04] MEDS: BENZTROPINE 0.5 MG TAB PO SCH ×2 (09:03→20:07)
[2021-06-04] MEDS: hydrOXYzine 50 MG TAB PO SCH ×2 (09:03→20:07)
[2021-06-04] MEDS: OXcarbazepine 300 MG TAB PO SCH ×2 (09:03→20:06)
[2021-06-04] MEDS: CLOTRIMAZOLE 1% TOPICAL CREAM 30GM TOP SCH (09:04)
[2021-06-04] MEDS: NYSTATIN 100,000 UNITS/GM TOPICAL PWD 15 GM TOP SCH ×2 (09:04→20:05)
[2021-06-04] MEDS: ACETAMINOPHEN TAB 650MG DOSE (2X325MG) PO PRN (17:23)
[2021-06-04 18:00] VITALS: BP 150/74
[2021-06-04] MEDS: LURASIDONE HCL 40MG TAB (LATUDA) PO SCH (20:06)
[2021-06-04] MEDS: PRAZOSIN 1 MG CAP PO SCH (20:06)
[2021-06-04] MEDS: clonazePAM 0.5 MG TAB PO SCH (20:07)
[2021-06-05 06:13] VITALS: BP 102/61
[2021-06-05] MEDS: NYSTATIN 100,000 UNITS/GM TOPICAL PWD 15 GM TOP SCH ×2 (09:27→19:57)
[2021-06-05] MEDS: hydrOXYzine 50 MG TAB PO SCH ×2 (09:28→19:57)
[2021-06-05] MEDS: OXcarbazepine 300 MG TAB PO SCH ×2 (09:28→19:57)
[2021-06-05] MEDS: BENZTROPINE 0.5 MG TAB PO SCH ×2 (09:28→19:57)
[2021-06-05] MEDS: CLOTRIMAZOLE 1% TOPICAL CREAM 30GM TOP SCH (09:28)
[2021-06-05 18:05] VITALS: BP 144/82
[2021-06-05] MEDS: PRAZOSIN 1 MG CAP PO SCH (19:56)
[2021-06-05] MEDS: LURASIDONE HCL 40MG TAB (LATUDA) PO SCH (19:57)
[2021-06-05] MEDS: clonazePAM 0.5 MG TAB PO SCH (19:57)
[2021-06-06 06:52] VITALS: BP 128/70
[2021-06-06] MEDS: CLOTRIMAZOLE 1% TOPICAL CREAM 30GM TOP SCH (08:11)
[2021-06-06] MEDS: hydrOXYzine 50 MG TAB PO SCH ×2 (08:11→20:45)
[2021-06-06] MEDS: OXcarbazepine 300 MG TAB PO SCH ×2 (08:11→20:46)
[2021-06-06] MEDS: BENZTROPINE 0.5 MG TAB PO SCH ×2 (08:11→20:45)
[2021-06-06] MEDS: NYSTATIN 100,000 UNITS/GM TOPICAL PWD 15 GM TOP SCH ×2 (08:12→20:44)
[2021-06-06 16:55] VITALS: BP 115/60
[2021-06-06] MEDS: LURASIDONE HCL 40MG TAB (LATUDA) PO SCH (20:45)
[2021-06-06] MEDS: PRAZOSIN 1 MG CAP PO SCH (20:46)
[2021-06-06] MEDS: clonazePAM 0.5 MG TAB PO SCH (20:46)
[2021-06-07 06:13] VITALS: BP 128/58
[2021-06-07] MEDS: NYSTATIN 100,000 UNITS/GM TOPICAL PWD 15 GM TOP SCH ×2 (09:11→20:26)
[2021-06-07] MEDS: hydrOXYzine 50 MG TAB PO SCH ×2 (09:11→20:27)
[2021-06-07] MEDS: CLOTRIMAZOLE 1% TOPICAL CREAM 30GM TOP SCH (09:11)
[2021-06-07] MEDS: BENZTROPINE 0.5 MG TAB PO SCH ×2 (09:11→20:27)
[2021-06-07] MEDS: OXcarbazepine 300 MG TAB PO SCH ×2 (09:12→20:27)
[2021-06-07 18:00] VITALS: BP 140/69
[2021-06-07] MEDS: LURASIDONE HCL 40MG TAB (LATUDA) PO SCH (20:27)
[2021-06-07] MEDS: clonazePAM 0.5 MG TAB PO SCH (20:27)
[2021-06-07] MEDS: PRAZOSIN 1 MG CAP PO SCH (20:32)
[2021-06-08 06:26] VITALS: BP 134/58
[2021-06-08] MEDS: BENZTROPINE 0.5 MG TAB PO SCH ×2 (08:36→20:43)
[2021-06-08] MEDS: hydrOXYzine 50 MG TAB PO SCH ×2 (08:36→20:45)
[2021-06-08] MEDS: OXcarbazepine 300 MG TAB PO SCH ×2 (08:37→20:43)
[2021-06-08] MEDS: NYSTATIN 100,000 UNITS/GM TOPICAL PWD 15 GM TOP SCH ×2 (08:37→20:42)
[2021-06-08] MEDS: CLOTRIMAZOLE 1% TOPICAL CREAM 30GM TOP SCH (08:40)
[2021-06-08] MEDS: OLANZapine ORAL DISINTEGRATING TAB 5MG PO PRN (08:43)
[2021-06-08 18:39] VITALS: BP 156/81
[2021-06-08] MEDS: LURASIDONE HCL 40MG TAB (LATUDA) PO SCH (20:42)
[2021-06-08] MEDS: PRAZOSIN 1 MG CAP PO SCH (20:44)
[2021-06-08] MEDS: clonazePAM 0.5 MG TAB PO SCH (20:45)
[2021-06-09 06:00] VITALS: BP 136/72
[2021-06-09] MEDS: BENZTROPINE 0.5 MG TAB PO SCH ×2 (08:29→20:29)
[2021-06-09] MEDS: hydrOXYzine 50 MG TAB PO SCH ×2 (08:30→20:29)
[2021-06-09] MEDS: OXcarbazepine 300 MG TAB PO SCH ×2 (08:30→20:29)
[2021-06-09] MEDS: CLOTRIMAZOLE 1% TOPICAL CREAM 30GM TOP SCH (08:32)
[2021-06-09] MEDS: NYSTATIN 100,000 UNITS/GM TOPICAL PWD 15 GM TOP SCH ×2 (08:33→20:29)
[2021-06-09 18:00] VITALS: BP 147/81
[2021-06-09] MEDS: LURASIDONE HCL 40MG TAB (LATUDA) PO SCH (20:29)
[2021-06-09] MEDS: PRAZOSIN 1 MG CAP PO SCH (20:30)
[2021-06-09] MEDS: clonazePAM 0.5 MG TAB PO SCH (20:30)
[2021-06-10 06:45] VITALS: BP 125/73
[2021-06-10] MEDS: OXcarbazepine 300 MG TAB PO SCH ×2 (09:10→20:34)
[2021-06-10] MEDS: hydrOXYzine 50 MG TAB PO SCH ×2 (09:10→20:34)
[2021-06-10] MEDS: BENZTROPINE 0.5 MG TAB PO SCH ×2 (09:10→20:34)
[2021-06-10] MEDS: NYSTATIN 100,000 UNITS/GM TOPICAL PWD 15 GM TOP SCH ×2 (09:10→20:34)
[2021-06-10] MEDS: CLOTRIMAZOLE 1% TOPICAL CREAM 30GM TOP SCH (09:11)
[2021-06-10 18:55] VITALS: BP 143/75
[2021-06-10] MEDS: clonazePAM 0.5 MG TAB PO SCH (20:34)
[2021-06-10] MEDS: LURASIDONE HCL 40MG TAB (LATUDA) PO SCH (20:34)
[2021-06-10] MEDS: PRAZOSIN 1 MG CAP PO SCH (20:35)
[2021-06-11 06:44] VITALS: BP 132/75
[2021-06-11] MEDS: CLOTRIMAZOLE 1% TOPICAL CREAM 30GM TOP SCH (08:26)
[2021-06-11] MEDS: hydrOXYzine 50 MG TAB PO SCH ×2 (08:26→20:05)
[2021-06-11] MEDS: OXcarbazepine 300 MG TAB PO SCH ×2 (08:26→20:05)
[2021-06-11] MEDS: BENZTROPINE 0.5 MG TAB PO SCH ×2 (08:26→20:05)
[2021-06-11] MEDS: NYSTATIN 100,000 UNITS/GM TOPICAL PWD 15 GM TOP SCH ×2 (08:26→20:05)
[2021-06-11 16:39] VITALS: BP 131/84
[2021-06-11] MEDS: LURASIDONE HCL 40MG TAB (LATUDA) PO SCH (20:05)
[2021-06-11] MEDS: clonazePAM 0.5 MG TAB PO SCH (20:06)
[2021-06-11] MEDS: PRAZOSIN 1 MG CAP PO SCH (20:06)
[2021-06-12 06:18] VITALS: BP 93/55
[2021-06-12] MEDS: hydrOXYzine 50 MG TAB PO SCH ×2 (08:30→20:05)
[2021-06-12] MEDS: NYSTATIN 100,000 UNITS/GM TOPICAL PWD 15 GM TOP SCH ×2 (08:30→20:04)
[2021-06-12] MEDS: BENZTROPINE 0.5 MG TAB PO SCH ×2 (08:30→20:05)
[2021-06-12] MEDS: OXcarbazepine 300 MG TAB PO SCH ×2 (08:30→20:04)
[2021-06-12] MEDS: CLOTRIMAZOLE 1% TOPICAL CREAM 30GM TOP SCH (08:30)
[2021-06-12 16:25] VITALS: BP 134/66
[2021-06-12] MEDS: clonazePAM 0.5 MG TAB PO SCH (20:05)
[2021-06-12] MEDS: LURASIDONE HCL 40MG TAB (LATUDA) PO SCH (20:05)
[2021-06-12] MEDS: PRAZOSIN 1 MG CAP PO SCH (20:05)
[2021-06-13 06:05] VITALS: BP 126/58
[2021-06-13] MEDS: NYSTATIN 100,000 UNITS/GM TOPICAL PWD 15 GM TOP SCH ×2 (08:15→20:27)
[2021-06-13] MEDS: hydrOXYzine 50 MG TAB PO SCH ×2 (08:16→20:28)
[2021-06-13] MEDS: OXcarbazepine 300 MG TAB PO SCH ×2 (08:16→20:28)
[2021-06-13] MEDS: CLOTRIMAZOLE 1% TOPICAL CREAM 30GM TOP SCH (08:16)
[2021-06-13] MEDS: BENZTROPINE 0.5 MG TAB PO SCH ×2 (08:16→20:29)
[2021-06-13 16:27] VITALS: BP 136/66
[2021-06-13] MEDS: OLANZapine ORAL DISINTEGRATING TAB 5MG PO PRN (18:35)
[2021-06-13] MEDS: PRAZOSIN 1 MG CAP PO SCH (20:28)
[2021-06-13] MEDS: clonazePAM 0.5 MG TAB PO SCH (20:28)
[2021-06-13] MEDS: LURASIDONE HCL 40MG TAB (LATUDA) PO SCH (20:29)
[2021-06-14 07:06] VITALS: BP 136/81
[2021-06-14] MEDS: BENZTROPINE 0.5 MG TAB PO SCH ×2 (09:49→21:50)
[2021-06-14] MEDS: hydrOXYzine 50 MG TAB PO SCH ×2 (09:49→21:50)
[2021-06-14] MEDS: CLOTRIMAZOLE 1% TOPICAL CREAM 30GM TOP SCH (09:50)
[2021-06-14] MEDS: NYSTATIN 100,000 UNITS/GM TOPICAL PWD 15 GM TOP SCH ×2 (09:50→21:52)
[2021-06-14] MEDS: OXcarbazepine 300 MG TAB PO SCH ×2 (09:50→21:49)
[2021-06-14 17:49] VITALS: BP 139/87
[2021-06-14] MEDS: clonazePAM 0.5 MG TAB PO SCH (21:49)
[2021-06-14] MEDS: PRAZOSIN 1 MG CAP PO SCH (21:50)
[2021-06-14] MEDS: LURASIDONE HCL 40MG TAB (LATUDA) PO SCH (21:50)
[2021-06-15] MEDS: BENZTROPINE 0.5 MG TAB PO SCH ×2 (08:52→20:21)
[2021-06-15] MEDS: OXcarbazepine 300 MG TAB PO SCH ×2 (08:52→20:21)
[2021-06-15] MEDS: hydrOXYzine 50 MG TAB PO SCH ×2 (08:52→20:21)
[2021-06-15] MEDS: CLOTRIMAZOLE 1% TOPICAL CREAM 30GM TOP SCH (08:53)
[2021-06-15] MEDS: NYSTATIN 100,000 UNITS/GM TOPICAL PWD 15 GM TOP SCH ×2 (08:53→20:20)
[2021-06-15 09:19] VITALS: BP 143/65
[2021-06-15 17:38] VITALS: BP 118/70
[2021-06-15] MEDS: LURASIDONE HCL 40MG TAB (LATUDA) PO SCH (20:21)
[2021-06-15] MEDS: clonazePAM 0.5 MG TAB PO SCH (20:21)
[2021-06-15] MEDS: PRAZOSIN 1 MG CAP PO SCH (20:21)
[2021-06-16 07:13] VITALS: BP 124/76
[2021-06-16] MEDS: CLOTRIMAZOLE 1% TOPICAL CREAM 30GM TOP SCH (08:32)
[2021-06-16] MEDS: NYSTATIN 100,000 UNITS/GM TOPICAL PWD 15 GM TOP SCH ×2 (08:32→20:12)
[2021-06-16] MEDS: BENZTROPINE 0.5 MG TAB PO SCH ×2 (08:33→20:10)
[2021-06-16] MEDS: hydrOXYzine 50 MG TAB PO SCH ×2 (08:33→20:09)
[2021-06-16] MEDS: OXcarbazepine 300 MG TAB PO SCH ×2 (08:34→20:09)
[2021-06-16 18:29] VITALS: BP 130/78
[2021-06-16] MEDS: clonazePAM 0.5 MG TAB PO SCH (20:09)
[2021-06-16] MEDS: LURASIDONE HCL 40MG TAB (LATUDA) PO SCH (20:09)
[2021-06-16] MEDS: PRAZOSIN 1 MG CAP PO SCH (20:10)
[2021-06-17 06:37] VITALS: BP 105/70
[2021-06-17] MEDS: CLOTRIMAZOLE 1% TOPICAL CREAM 30GM TOP SCH (08:58)
[2021-06-17] MEDS: BENZTROPINE 0.5 MG TAB PO SCH ×2 (08:59→20:49)
[2021-06-17] MEDS: hydrOXYzine 50 MG TAB PO SCH ×2 (08:59→20:49)
[2021-06-17] MEDS: OXcarbazepine 300 MG TAB PO SCH ×2 (08:59→20:49)
[2021-06-17] MEDS: NYSTATIN 100,000 UNITS/GM TOPICAL PWD 15 GM TOP SCH ×2 (09:00→20:50)
[2021-06-17 15:47] VITALS: BP 146/68
[2021-06-17] MEDS: LURASIDONE HCL 40MG TAB (LATUDA) PO SCH (20:49)
[2021-06-17] MEDS: clonazePAM 0.5 MG TAB PO SCH (20:49)
[2021-06-17] MEDS: PRAZOSIN 1 MG CAP PO SCH (20:50)
[2021-06-18 06:43] VITALS: BP 128/64
[2021-06-18] MEDS: OXcarbazepine 300 MG TAB PO SCH ×2 (08:37→20:45)
[2021-06-18] MEDS: BENZTROPINE 0.5 MG TAB PO SCH ×2 (08:37→20:46)
[2021-06-18] MEDS: hydrOXYzine 50 MG TAB PO SCH ×2 (08:38→20:46)
[2021-06-18] MEDS: CLOTRIMAZOLE 1% TOPICAL CREAM 30GM TOP SCH (08:38)
[2021-06-18] MEDS: NYSTATIN 100,000 UNITS/GM TOPICAL PWD 15 GM TOP SCH ×2 (08:38→20:45)
[2021-06-18 18:45] VITALS: BP 146/80
[2021-06-18] MEDS: OLANZapine ORAL DISINTEGRATING TAB 5MG PO PRN (19:27)
[2021-06-18] MEDS: clonazePAM 0.5 MG TAB PO SCH (20:45)
[2021-06-18] MEDS: LURASIDONE HCL 40MG TAB (LATUDA) PO SCH (20:45)
[2021-06-18] MEDS: PRAZOSIN 1 MG CAP PO SCH (20:46)
[2021-06-18] MEDS: traZODone 25MG PER 1/2 TABLET PO PRN (22:51)
[2021-06-19 07:03] VITALS: BP 123/72
[2021-06-19] MEDS: NYSTATIN 100,000 UNITS/GM TOPICAL PWD 15 GM TOP SCH ×2 (09:00→20:10)
[2021-06-19] MEDS: CLOTRIMAZOLE 1% TOPICAL CREAM 30GM TOP SCH (09:37)
[2021-06-19] MEDS: BENZTROPINE 0.5 MG TAB PO SCH ×2 (09:37→20:09)
[2021-06-19] MEDS: hydrOXYzine 50 MG TAB PO SCH ×2 (09:37→20:09)
[2021-06-19] MEDS: OXcarbazepine 300 MG TAB PO SCH ×2 (09:37→20:09)
[2021-06-19] MEDS: OLANZapine ORAL DISINTEGRATING TAB 5MG PO PRN (17:00)
[2021-06-19 17:03] VITALS: BP 118/80
[2021-06-19] MEDS: clonazePAM 0.5 MG TAB PO SCH (20:09)
[2021-06-19] MEDS: LURASIDONE HCL 40MG TAB (LATUDA) PO SCH (20:09)
[2021-06-19] MEDS: PRAZOSIN 1 MG CAP PO SCH (20:11)
[2021-06-20 06:48] VITALS: BP 115/61
[2021-06-20] MEDS: BENZTROPINE 0.5 MG TAB PO SCH ×2 (08:48→20:22)
[2021-06-20] MEDS: OXcarbazepine 300 MG TAB PO SCH ×2 (08:48→20:22)
[2021-06-20] MEDS: CLOTRIMAZOLE 1% TOPICAL CREAM 30GM TOP SCH (08:49)
[2021-06-20] MEDS: hydrOXYzine 50 MG TAB PO SCH ×2 (08:49→20:22)
[2021-06-20] MEDS: NYSTATIN 100,000 UNITS/GM TOPICAL PWD 15 GM TOP SCH ×2 (08:51→20:25)
[2021-06-20 17:55] VITALS: BP 143/85
[2021-06-20] MEDS: LURASIDONE HCL 40MG TAB (LATUDA) PO SCH (20:22)
[2021-06-20] MEDS: clonazePAM 0.5 MG TAB PO SCH (20:23)
[2021-06-20] MEDS: PRAZOSIN 1 MG CAP PO SCH (20:23)
[2021-06-21 06:29] VITALS: BP 124/74
[2021-06-21] MEDS: BENZTROPINE 0.5 MG TAB PO SCH ×2 (09:07→20:17)
[2021-06-21] MEDS: hydrOXYzine 50 MG TAB PO SCH ×2 (09:07→20:16)
[2021-06-21] MEDS: OXcarbazepine 300 MG TAB PO SCH ×2 (09:07→20:17)
[2021-06-21] MEDS: NYSTATIN 100,000 UNITS/GM TOPICAL PWD 15 GM TOP SCH ×2 (09:07→20:19)
[2021-06-21] MEDS: CLOTRIMAZOLE 1% TOPICAL CREAM 30GM TOP SCH (09:08)
[2021-06-21 17:55] VITALS: BP 140/80
[2021-06-21] MEDS: PRAZOSIN 1 MG CAP PO SCH (20:16)
[2021-06-21] MEDS: LURASIDONE HCL 40MG TAB (LATUDA) PO SCH (20:16)
[2021-06-21] MEDS: clonazePAM 0.5 MG TAB PO SCH (20:19)
[2021-06-22 06:38] VITALS: BP 143/65
[2021-06-22] MEDS: hydrOXYzine 50 MG TAB PO SCH ×2 (08:25→20:35)
[2021-06-22] MEDS: NYSTATIN 100,000 UNITS/GM TOPICAL PWD 15 GM TOP SCH ×2 (08:25→20:33)
[2021-06-22] MEDS: BENZTROPINE 0.5 MG TAB PO SCH ×2 (08:25→20:35)
[2021-06-22] MEDS: OXcarbazepine 300 MG TAB PO SCH ×2 (08:25→20:34)
[2021-06-22] MEDS: CLOTRIMAZOLE 1% TOPICAL CREAM 30GM TOP SCH (08:26)
[2021-06-22 17:05] VITALS: BP 133/61
[2021-06-22] MEDS: PRAZOSIN 1 MG CAP PO SCH (20:34)
[2021-06-22] MEDS: LURASIDONE HCL 40MG TAB (LATUDA) PO SCH (20:35)
[2021-06-22] MEDS: clonazePAM 0.5 MG TAB PO SCH (20:35)
[2021-06-23 06:54] VITALS: BP 134/55
[2021-06-23] MEDS: hydrOXYzine 50 MG TAB PO SCH ×2 (08:04→20:31)
[2021-06-23] MEDS: BENZTROPINE 0.5 MG TAB PO SCH ×2 (08:04→20:32)
[2021-06-23] MEDS: OXcarbazepine 300 MG TAB PO SCH ×2 (08:04→20:31)
[2021-06-23] MEDS: CLOTRIMAZOLE 1% TOPICAL CREAM 30GM TOP SCH (08:04)
[2021-06-23] MEDS: NYSTATIN 100,000 UNITS/GM TOPICAL PWD 15 GM TOP SCH ×2 (08:04→20:31)
[2021-06-23 18:07] VITALS: BP 130/68
[2021-06-23] MEDS: LURASIDONE HCL 40MG TAB (LATUDA) PO SCH (20:31)
[2021-06-23] MEDS: clonazePAM 0.5 MG TAB PO SCH (20:32)
[2021-06-23] MEDS: PRAZOSIN 1 MG CAP PO SCH (20:32)
[2021-06-24 07:10] VITALS: BP 135/65
[2021-06-24] MEDS: BENZTROPINE 0.5 MG TAB PO SCH ×2 (08:31→20:28)
[2021-06-24] MEDS: hydrOXYzine 50 MG TAB PO SCH ×2 (08:32→20:28)
[2021-06-24] MEDS: CLOTRIMAZOLE 1% TOPICAL CREAM 30GM TOP SCH (08:32)
[2021-06-24] MEDS: OXcarbazepine 300 MG TAB PO SCH ×2 (08:32→20:27)
[2021-06-24] MEDS: NYSTATIN 100,000 UNITS/GM TOPICAL PWD 15 GM TOP SCH ×2 (08:33→20:31)
[2021-06-24] MEDS: clonazePAM 0.5 MG TAB PO SCH (20:27)
[2021-06-24] MEDS: LURASIDONE HCL 40MG TAB (LATUDA) PO SCH (20:28)
[2021-06-24] MEDS: PRAZOSIN 1 MG CAP PO SCH (20:31)
[2021-06-25 06:42] VITALS: BP 127/62
[2021-06-25] MEDS: CLOTRIMAZOLE 1% TOPICAL CREAM 30GM TOP SCH (08:45)
[2021-06-25] MEDS: BENZTROPINE 0.5 MG TAB PO SCH ×2 (08:46→20:36)
[2021-06-25] MEDS: hydrOXYzine 50 MG TAB PO SCH ×2 (08:46→20:36)
[2021-06-25] MEDS: OXcarbazepine 300 MG TAB PO SCH ×2 (08:46→20:36)
[2021-06-25] MEDS: NYSTATIN 100,000 UNITS/GM TOPICAL PWD 15 GM TOP SCH ×2 (08:46→20:36)
[2021-06-25 16:31] VITALS: BP 140/70
[2021-06-25] MEDS: LURASIDONE HCL 40MG TAB (LATUDA) PO SCH (20:36)
[2021-06-25] MEDS: clonazePAM 0.5 MG TAB PO SCH (20:36)
[2021-06-25] MEDS: PRAZOSIN 1 MG CAP PO SCH (20:37)
[2021-06-26 06:11] VITALS: BP 97/55
[2021-06-26] MEDS: hydrOXYzine 50 MG TAB PO SCH ×2 (08:58→20:47)
[2021-06-26] MEDS: BENZTROPINE 0.5 MG TAB PO SCH ×2 (08:58→20:46)
[2021-06-26] MEDS: OXcarbazepine 300 MG TAB PO SCH ×2 (08:58→20:46)
[2021-06-26] MEDS: NYSTATIN 100,000 UNITS/GM TOPICAL PWD 15 GM TOP SCH ×2 (08:58→20:51)
[2021-06-26] MEDS: CLOTRIMAZOLE 1% TOPICAL CREAM 30GM TOP SCH (08:58)
[2021-06-26 16:19] VITALS: BP 140/83
[2021-06-26] MEDS: LURASIDONE HCL 40MG TAB (LATUDA) PO SCH (20:46)
[2021-06-26] MEDS: clonazePAM 0.5 MG TAB PO SCH (20:46)
[2021-06-26] MEDS: PRAZOSIN 1 MG CAP PO SCH (20:51)
[2021-06-27 06:31] VITALS: BP 108/53
[2021-06-27] MEDS: BENZTROPINE 0.5 MG TAB PO SCH ×2 (08:15→20:21)
[2021-06-27] MEDS: NYSTATIN 100,000 UNITS/GM TOPICAL PWD 15 GM TOP SCH ×2 (08:15→20:20)
[2021-06-27] MEDS: OXcarbazepine 300 MG TAB PO SCH ×2 (08:15→20:21)
[2021-06-27] MEDS: CLOTRIMAZOLE 1% TOPICAL CREAM 30GM TOP SCH (08:15)
[2021-06-27] MEDS: hydrOXYzine 50 MG TAB PO SCH ×2 (08:15→20:21)
[2021-06-27 16:15] VITALS: BP 140/88
[2021-06-27] MEDS: LURASIDONE HCL 40MG TAB (LATUDA) PO SCH (20:20)
[2021-06-27] MEDS: clonazePAM 0.5 MG TAB PO SCH (20:21)
[2021-06-27] MEDS: PRAZOSIN 1 MG CAP PO SCH (20:21)
[2021-06-28 06:59] VITALS: BP 124/57
[2021-06-28] MEDS: BENZTROPINE 0.5 MG TAB PO SCH ×2 (08:33→20:12)
[2021-06-28] MEDS: hydrOXYzine 50 MG TAB PO SCH ×2 (08:33→20:14)
[2021-06-28] MEDS: OXcarbazepine 300 MG TAB PO SCH ×2 (08:34→20:12)
[2021-06-28] MEDS: NYSTATIN 100,000 UNITS/GM TOPICAL PWD 15 GM TOP SCH ×2 (09:14→20:14)
[2021-06-28] MEDS: CLOTRIMAZOLE 1% TOPICAL CREAM 30GM TOP SCH (09:15)
[2021-06-28 18:16] VITALS: BP 140/82
[2021-06-28] MEDS: clonazePAM 0.5 MG TAB PO SCH (20:11)
[2021-06-28] MEDS: LURASIDONE HCL 40MG TAB (LATUDA) PO SCH (20:12)
[2021-06-28] MEDS: PRAZOSIN 1 MG CAP PO SCH (20:12)
[2021-06-29 06:50] VITALS: BP 116/60
[2021-06-29] MEDS: hydrOXYzine 50 MG TAB PO SCH ×2 (09:03→20:23)
[2021-06-29] MEDS: BENZTROPINE 0.5 MG TAB PO SCH ×2 (09:03→20:23)
[2021-06-29] MEDS: OXcarbazepine 300 MG TAB PO SCH ×2 (09:03→20:23)
[2021-06-29] MEDS: NYSTATIN 100,000 UNITS/GM TOPICAL PWD 15 GM TOP SCH ×2 (09:03→20:25)
[2021-06-29] MEDS: CLOTRIMAZOLE 1% TOPICAL CREAM 30GM TOP SCH (09:03)
[2021-06-29 16:54] VITALS: BP 135/70
[2021-06-29] MEDS: LURASIDONE HCL 40MG TAB (LATUDA) PO SCH (20:23)
[2021-06-29] MEDS: clonazePAM 0.5 MG TAB PO SCH (20:23)
[2021-06-29] MEDS: PRAZOSIN 1 MG CAP PO SCH (20:25)
[2021-06-30 06:48] VITALS: BP 120/56
[2021-06-30] MEDS: CLOTRIMAZOLE 1% TOPICAL CREAM 30GM TOP SCH (08:37)
[2021-06-30] MEDS: NYSTATIN 100,000 UNITS/GM TOPICAL PWD 15 GM TOP SCH ×2 (08:37→20:17)
[2021-06-30] MEDS: hydrOXYzine 50 MG TAB PO SCH ×2 (08:37→20:16)
[2021-06-30] MEDS: OXcarbazepine 300 MG TAB PO SCH ×2 (08:37→20:16)
[2021-06-30] MEDS: BENZTROPINE 0.5 MG TAB PO SCH ×2 (08:37→20:16)
[2021-06-30 16:50] VITALS: BP 123/59
[2021-06-30] MEDS: clonazePAM 0.5 MG TAB PO SCH (20:16)
[2021-06-30] MEDS: LURASIDONE HCL 40MG TAB (LATUDA) PO SCH (20:16)
[2021-06-30] MEDS: PRAZOSIN 1 MG CAP PO SCH (20:17)
[2021-07-01 06:32] VITALS: BP 136/65
[2021-07-01] MEDS: BENZTROPINE 0.5 MG TAB PO SCH ×2 (08:51→20:09)
[2021-07-01] MEDS: CLOTRIMAZOLE 1% TOPICAL CREAM 30GM TOP SCH (08:51)
[2021-07-01] MEDS: NYSTATIN 100,000 UNITS/GM TOPICAL PWD 15 GM TOP SCH ×2 (08:51→20:08)
[2021-07-01] MEDS: hydrOXYzine 50 MG TAB PO SCH ×2 (08:51→20:08)
[2021-07-01] MEDS: OXcarbazepine 300 MG TAB PO SCH ×2 (08:51→20:09)
[2021-07-01 16:50] VITALS: BP 142/80
[2021-07-01] MEDS: clonazePAM 0.5 MG TAB PO SCH (20:08)
[2021-07-01] MEDS: PRAZOSIN 1 MG CAP PO SCH (20:09)
[2021-07-01] MEDS: LURASIDONE HCL 40MG TAB (LATUDA) PO SCH (20:09)
[2021-07-02 07:10] VITALS: BP 132/74
[2021-07-02] MEDS: OXcarbazepine 300 MG TAB PO SCH ×2 (08:52→20:10)
[2021-07-02] MEDS: hydrOXYzine 50 MG TAB PO SCH ×2 (08:53→20:11)
[2021-07-02] MEDS: BENZTROPINE 0.5 MG TAB PO SCH ×2 (08:53→20:10)
[2021-07-02] MEDS: CLOTRIMAZOLE 1% TOPICAL CREAM 30GM TOP SCH (08:53)
[2021-07-02] MEDS: NYSTATIN 100,000 UNITS/GM TOPICAL PWD 15 GM TOP SCH ×2 (08:53→20:10)
[2021-07-02] MEDS: OLANZapine ORAL DISINTEGRATING TAB 5MG PO PRN (16:42)
[2021-07-02 18:00] VITALS: BP 151/81
[2021-07-02] MEDS: LURASIDONE HCL 40MG TAB (LATUDA) PO SCH (20:10)
[2021-07-02] MEDS: PRAZOSIN 1 MG CAP PO SCH (20:11)
[2021-07-02] MEDS: clonazePAM 0.5 MG TAB PO SCH (20:11)
[2021-07-03 06:58] VITALS: BP 120/56
[2021-07-03] MEDS: BENZTROPINE 0.5 MG TAB PO SCH ×2 (09:17→20:29)
[2021-07-03] MEDS: OXcarbazepine 300 MG TAB PO SCH ×2 (09:18→20:29)
[2021-07-03] MEDS: hydrOXYzine 50 MG TAB PO SCH ×2 (09:19→20:29)
[2021-07-03] MEDS: CLOTRIMAZOLE 1% TOPICAL CREAM 30GM TOP SCH (09:20)
[2021-07-03] MEDS: NYSTATIN 100,000 UNITS/GM TOPICAL PWD 15 GM TOP SCH ×2 (09:21→20:28)
[2021-07-03 18:20] VITALS: BP 114/89
[2021-07-03] MEDS: LURASIDONE HCL 40MG TAB (LATUDA) PO SCH (20:29)
[2021-07-03] MEDS: clonazePAM 0.5 MG TAB PO SCH (20:29)
[2021-07-03] MEDS: PRAZOSIN 1 MG CAP PO SCH (20:34)
[2021-07-04] MEDS: OXcarbazepine 300 MG TAB PO SCH ×2 (08:04→20:22)
[2021-07-04] MEDS: BENZTROPINE 0.5 MG TAB PO SCH ×2 (08:04→20:22)
[2021-07-04] MEDS: hydrOXYzine 50 MG TAB PO SCH ×2 (08:04→20:22)
[2021-07-04] MEDS: NYSTATIN 100,000 UNITS/GM TOPICAL PWD 15 GM TOP SCH ×2 (08:05→20:23)
[2021-07-04] MEDS: CLOTRIMAZOLE 1% TOPICAL CREAM 30GM TOP SCH (08:05)
[2021-07-04 17:50] VITALS: BP 133/68
[2021-07-04] MEDS: clonazePAM 0.5 MG TAB PO SCH (20:22)
[2021-07-04] MEDS: LURASIDONE HCL 40MG TAB (LATUDA) PO SCH (20:22)
[2021-07-04] MEDS: PRAZOSIN 1 MG CAP PO SCH (20:23)
[2021-07-05 07:04] VITALS: BP 107/58
[2021-07-05] MEDS: BENZTROPINE 0.5 MG TAB PO SCH ×2 (08:37→20:21)
[2021-07-05] MEDS: hydrOXYzine 50 MG TAB PO SCH ×2 (08:38→20:21)
[2021-07-05] MEDS: OXcarbazepine 300 MG TAB PO SCH ×2 (08:38→20:20)
[2021-07-05] MEDS: CLOTRIMAZOLE 1% TOPICAL CREAM 30GM TOP SCH (08:39)
[2021-07-05] MEDS: NYSTATIN 100,000 UNITS/GM TOPICAL PWD 15 GM TOP SCH ×2 (08:40→20:20)
[2021-07-05 18:00] VITALS: BP 157/74
[2021-07-05] MEDS: clonazePAM 0.5 MG TAB PO SCH (20:21)
[2021-07-05] MEDS: LURASIDONE HCL 40MG TAB (LATUDA) PO SCH (20:21)
[2021-07-05] MEDS: PRAZOSIN 1 MG CAP PO SCH (20:21)
[2021-07-06 05:58] VITALS: BP 120/57
[2021-07-06] MEDS: CLOTRIMAZOLE 1% TOPICAL CREAM 30GM TOP SCH (09:11)
[2021-07-06] MEDS: NYSTATIN 100,000 UNITS/GM TOPICAL PWD 15 GM TOP SCH ×2 (09:11→20:38)
[2021-07-06] MEDS: OXcarbazepine 300 MG TAB PO SCH ×2 (09:12→20:39)
[2021-07-06] MEDS: hydrOXYzine 50 MG TAB PO SCH ×2 (09:12→20:39)
[2021-07-06] MEDS: BENZTROPINE 0.5 MG TAB PO SCH ×2 (09:12→20:38)
[2021-07-06] MEDS: ACETAMINOPHEN TAB 650MG DOSE (2X325MG) PO PRN (14:58)
[2021-07-06 16:28] VITALS: BP 157/91
[2021-07-06] MEDS: LURASIDONE HCL 40MG TAB (LATUDA) PO SCH (20:38)
[2021-07-06] MEDS: clonazePAM 0.5 MG TAB PO SCH (20:39)
[2021-07-06] MEDS: PRAZOSIN 1 MG CAP PO SCH (20:39)
[2021-07-07 06:58] VITALS: BP 134/72
[2021-07-07] MEDS: BENZTROPINE 0.5 MG TAB PO SCH ×2 (08:15→20:08)
[2021-07-07] MEDS: OXcarbazepine 300 MG TAB PO SCH ×2 (08:15→20:08)
[2021-07-07] MEDS: hydrOXYzine 50 MG TAB PO SCH ×2 (08:16→20:09)
[2021-07-07] MEDS: CLOTRIMAZOLE 1% TOPICAL CREAM 30GM TOP SCH (08:16)
[2021-07-07] MEDS: NYSTATIN 100,000 UNITS/GM TOPICAL PWD 15 GM TOP SCH ×2 (08:17→20:07)
[2021-07-07 11:59] LABS: HEMOGLOBIN A1c 6.1 %
[2021-07-07 12:05] LABS: CHOLESTEROL RISK RATIO 4.302 (<5)
[2021-07-07 18:00] VITALS: BP 152/81
[2021-07-07] MEDS: LURASIDONE HCL 40MG TAB (LATUDA) PO SCH (20:08)
[2021-07-07] MEDS: clonazePAM 0.5 MG TAB PO SCH (20:09)
[2021-07-07] MEDS: PRAZOSIN 1 MG CAP PO SCH (20:09)
[2021-07-08 06:57] VITALS: BP 120/65
[2021-07-08] MEDS: BENZTROPINE 0.5 MG TAB PO SCH ×2 (08:32→21:05)
[2021-07-08] MEDS: hydrOXYzine 50 MG TAB PO SCH ×2 (08:33→21:05)
[2021-07-08] MEDS: OXcarbazepine 300 MG TAB PO SCH ×2 (08:33→21:05)
[2021-07-08] MEDS: OLANZapine ORAL DISINTEGRATING TAB 5MG PO PRN (08:34)
[2021-07-08] MEDS: NYSTATIN 100,000 UNITS/GM TOPICAL PWD 15 GM TOP SCH ×2 (09:17→21:05)
[2021-07-08] MEDS: CLOTRIMAZOLE 1% TOPICAL CREAM 30GM TOP SCH (09:18)
[2021-07-08] MEDS: LURASIDONE HCL 40MG TAB (LATUDA) PO SCH (21:05)
[2021-07-08] MEDS: clonazePAM 0.5 MG TAB PO SCH (21:05)
[2021-07-08] MEDS: PRAZOSIN 1 MG CAP PO SCH (21:07)
[2021-07-09 06:37] VITALS: BP 114/56
[2021-07-09] MEDS: hydrOXYzine 50 MG TAB PO SCH ×2 (08:21→20:33)
[2021-07-09] MEDS: CLOTRIMAZOLE 1% TOPICAL CREAM 30GM TOP SCH (08:21)
[2021-07-09] MEDS: BENZTROPINE 0.5 MG TAB PO SCH ×2 (08:21→20:33)
[2021-07-09] MEDS: OXcarbazepine 300 MG TAB PO SCH ×2 (08:22→20:33)
[2021-07-09] MEDS: NYSTATIN 100,000 UNITS/GM TOPICAL PWD 15 GM TOP SCH ×2 (08:22→20:32)
[2021-07-09 16:10] VITALS: BP 144/73
[2021-07-09] MEDS: clonazePAM 0.5 MG TAB PO SCH (20:32)
[2021-07-09] MEDS: PRAZOSIN 1 MG CAP PO SCH (20:33)
[2021-07-09] MEDS: LURASIDONE HCL 40MG TAB (LATUDA) PO SCH (20:33)
[2021-07-10 06:45] VITALS: BP 125/61
[2021-07-10] MEDS: OXcarbazepine 300 MG TAB PO SCH ×2 (09:29→20:26)
[2021-07-10] MEDS: CLOTRIMAZOLE 1% TOPICAL CREAM 30GM TOP SCH (09:29)
[2021-07-10] MEDS: hydrOXYzine 50 MG TAB PO SCH ×2 (09:29→20:26)
[2021-07-10] MEDS: NYSTATIN 100,000 UNITS/GM TOPICAL PWD 15 GM TOP SCH ×2 (09:30→20:25)
[2021-07-10] MEDS: BENZTROPINE 0.5 MG TAB PO SCH ×2 (09:30→20:26)
[2021-07-10 17:00] VITALS: BP 140/76
[2021-07-10] MEDS: PRAZOSIN 1 MG CAP PO SCH (20:26)
[2021-07-10] MEDS: clonazePAM 0.5 MG TAB PO SCH (20:26)
[2021-07-10] MEDS: LURASIDONE HCL 40MG TAB (LATUDA) PO SCH (20:26)
[2021-07-11] MEDS: BENZTROPINE 0.5 MG TAB PO SCH ×2 (09:25→20:22)
[2021-07-11] MEDS: OXcarbazepine 300 MG TAB PO SCH ×2 (09:25→20:21)
[2021-07-11] MEDS: hydrOXYzine 50 MG TAB PO SCH ×2 (09:25→20:22)
[2021-07-11] MEDS: NYSTATIN 100,000 UNITS/GM TOPICAL PWD 15 GM TOP SCH ×2 (09:26→20:22)
[2021-07-11] MEDS: CLOTRIMAZOLE 1% TOPICAL CREAM 30GM TOP SCH (09:26)
[2021-07-11 16:15] VITALS: BP 148/79
[2021-07-11] MEDS: PRAZOSIN 1 MG CAP PO SCH (20:22)
[2021-07-11] MEDS: clonazePAM 0.5 MG TAB PO SCH (20:22)
[2021-07-11] MEDS: LURASIDONE HCL 40MG TAB (LATUDA) PO SCH (20:22)
[2021-07-12 06:57] VITALS: BP 127/59
[2021-07-12] MEDS: BENZTROPINE 0.5 MG TAB PO SCH ×2 (08:32→21:08)
[2021-07-12] MEDS: OXcarbazepine 300 MG TAB PO SCH ×2 (08:32→21:09)
[2021-07-12] MEDS: hydrOXYzine 50 MG TAB PO SCH ×2 (08:32→21:08)
[2021-07-12] MEDS: NYSTATIN 100,000 UNITS/GM TOPICAL PWD 15 GM TOP SCH ×2 (08:33→21:08)
[2021-07-12] MEDS: CLOTRIMAZOLE 1% TOPICAL CREAM 30GM TOP SCH (08:33)
[2021-07-12 18:57] VITALS: BP 143/82
[2021-07-12] MEDS: PRAZOSIN 1 MG CAP PO SCH (21:08)
[2021-07-12] MEDS: clonazePAM 0.5 MG TAB PO SCH (21:08)
[2021-07-12] MEDS: LURASIDONE HCL 40MG TAB (LATUDA) PO SCH (21:08)
[2021-07-13 06:33] VITALS: BP 132/59
[2021-07-13] MEDS: CLOTRIMAZOLE 1% TOPICAL CREAM 30GM TOP SCH (08:39)
[2021-07-13] MEDS: OXcarbazepine 300 MG TAB PO SCH ×2 (08:39→20:10)
[2021-07-13] MEDS: NYSTATIN 100,000 UNITS/GM TOPICAL PWD 15 GM TOP SCH ×2 (08:39→20:13)
[2021-07-13] MEDS: BENZTROPINE 0.5 MG TAB PO SCH ×2 (08:40→20:11)
[2021-07-13] MEDS: hydrOXYzine 50 MG TAB PO SCH ×2 (08:40→20:11)
[2021-07-13 16:13] VITALS: BP 142/80
[2021-07-13] MEDS: clonazePAM 0.5 MG TAB PO SCH (20:11)
[2021-07-13] MEDS: LURASIDONE HCL 40MG TAB (LATUDA) PO SCH (20:11)
[2021-07-13] MEDS: PRAZOSIN 1 MG CAP PO SCH (20:11)
[2021-07-14 06:54] VITALS: BP 112/55
[2021-07-14] MEDS: CLOTRIMAZOLE 1% TOPICAL CREAM 30GM TOP SCH (08:27)
[2021-07-14] MEDS: NYSTATIN 100,000 UNITS/GM TOPICAL PWD 15 GM TOP SCH ×2 (08:28→20:31)
[2021-07-14] MEDS: BENZTROPINE 0.5 MG TAB PO SCH ×2 (08:28→20:35)
[2021-07-14] MEDS: OXcarbazepine 300 MG TAB PO SCH ×2 (08:28→20:35)
[2021-07-14] MEDS: hydrOXYzine 50 MG TAB PO SCH ×2 (08:28→20:35)
[2021-07-14 16:24] VITALS: BP 142/90
[2021-07-14] MEDS: clonazePAM 0.5 MG TAB PO SCH (20:35)
[2021-07-14] MEDS: PRAZOSIN 1 MG CAP PO SCH (20:35)
[2021-07-14] MEDS: LURASIDONE HCL 40MG TAB (LATUDA) PO SCH (20:35)
[2021-07-15 06:39] VITALS: BP 130/70
[2021-07-15] MEDS: CLOTRIMAZOLE 1% TOPICAL CREAM 30GM TOP SCH (08:25)
[2021-07-15] MEDS: NYSTATIN 100,000 UNITS/GM TOPICAL PWD 15 GM TOP SCH ×2 (08:25→20:16)
[2021-07-15] MEDS: OXcarbazepine 300 MG TAB PO SCH ×2 (08:26→20:14)
[2021-07-15] MEDS: hydrOXYzine 50 MG TAB PO SCH ×2 (08:26→20:15)
[2021-07-15] MEDS: BENZTROPINE 0.5 MG TAB PO SCH ×2 (08:26→20:14)
[2021-07-15 16:42] VITALS: BP 153/79
[2021-07-15] MEDS: LURASIDONE HCL 40MG TAB (LATUDA) PO SCH (20:14)
[2021-07-15] MEDS: clonazePAM 0.5 MG TAB PO SCH (20:14)
[2021-07-15] MEDS: PRAZOSIN 1 MG CAP PO SCH (20:15)
[2021-07-16 06:43] VITALS: BP 110/58
[2021-07-16] MEDS: BENZTROPINE 0.5 MG TAB PO SCH ×2 (08:21→21:36)
[2021-07-16] MEDS: OXcarbazepine 300 MG TAB PO SCH ×2 (08:21→21:35)
[2021-07-16] MEDS: hydrOXYzine 50 MG TAB PO SCH ×2 (08:22→21:36)
[2021-07-16] MEDS: CLOTRIMAZOLE 1% TOPICAL CREAM 30GM TOP SCH (08:23)
[2021-07-16] MEDS: NYSTATIN 100,000 UNITS/GM TOPICAL PWD 15 GM TOP SCH ×2 (08:23→21:00)
[2021-07-16] MEDS ORDERED: OLANZapine ORAL DISINTEGRATING TAB 5MG PO STA (17:36)
[2021-07-16] MEDS ORDERED: LORazepam 1 MG TAB PO STA (17:36)
[2021-07-16 19:00] VITALS: BP 156/90
[2021-07-16] MEDS: LURASIDONE HCL 40MG TAB (LATUDA) PO SCH (21:35)
[2021-07-16] MEDS: PRAZOSIN 1 MG CAP PO SCH (21:36)
[2021-07-16] MEDS: clonazePAM 0.5 MG TAB PO SCH (21:36)
[2021-07-17 06:36] VITALS: BP 122/63
[2021-07-17] MEDS: OXcarbazepine 300 MG TAB PO SCH ×3 (08:44→21:52)
[2021-07-17] MEDS: BENZTROPINE 0.5 MG TAB PO SCH ×2 (08:44→21:51)
[2021-07-17] MEDS: hydrOXYzine 50 MG TAB PO SCH ×2 (08:44→21:52)
[2021-07-17] MEDS: CLOTRIMAZOLE 1% TOPICAL CREAM 30GM TOP SCH (08:46)
[2021-07-17] MEDS: NYSTATIN 100,000 UNITS/GM TOPICAL PWD 15 GM TOP SCH ×2 (08:46→21:51)
[2021-07-17] MEDS: OLANZapine ORAL DISINTEGRATING TAB 5MG PO PRN (10:07)
[2021-07-17 19:10] VITALS: BP 166/76
[2021-07-17] MEDS: clonazePAM 0.5 MG TAB PO SCH (21:51)
[2021-07-17] MEDS: PRAZOSIN 1 MG CAP PO SCH (21:52)
[2021-07-17] MEDS: LURASIDONE 20 MG TAB (LATUDA) PO SCH (21:52)
[2021-07-18 06:24] VITALS: BP 134/63
[2021-07-18] MEDS: OXcarbazepine 300 MG TAB PO SCH ×3 (09:00→21:49)
[2021-07-18] MEDS: hydrOXYzine 50 MG TAB PO SCH ×2 (09:00→21:48)
[2021-07-18] MEDS: BENZTROPINE 0.5 MG TAB PO SCH ×2 (09:00→21:49)
[2021-07-18] MEDS: CLOTRIMAZOLE 1% TOPICAL CREAM 30GM TOP SCH (09:01)
[2021-07-18] MEDS: NYSTATIN 100,000 UNITS/GM TOPICAL PWD 15 GM TOP SCH ×2 (09:01→21:48)
[2021-07-18] MEDS: clonazePAM 0.5 MG TAB PO SCH ×2 (12:17→21:49)
[2021-07-18 17:46] VITALS: BP 131/60
[2021-07-18] MEDS: LURASIDONE 20 MG TAB (LATUDA) PO SCH (21:48)
[2021-07-18] MEDS: PRAZOSIN 1 MG CAP PO SCH (21:49)
[2021-07-19 06:46] VITALS: BP 124/56
[2021-07-19] MEDS: OXcarbazepine 300 MG TAB PO SCH ×3 (08:50→21:32)
[2021-07-19] MEDS: hydrOXYzine 50 MG TAB PO SCH ×2 (08:50→21:32)
[2021-07-19] MEDS: BENZTROPINE 0.5 MG TAB PO SCH ×2 (08:50→21:32)
[2021-07-19] MEDS: clonazePAM 0.5 MG TAB PO SCH ×2 (08:50→21:32)
[2021-07-19] MEDS: NYSTATIN 100,000 UNITS/GM TOPICAL PWD 15 GM TOP SCH ×2 (08:51→21:31)
[2021-07-19] MEDS: CLOTRIMAZOLE 1% TOPICAL CREAM 30GM TOP SCH (08:51)
[2021-07-19 19:00] VITALS: BP 131/60
[2021-07-19] MEDS: PRAZOSIN 1 MG CAP PO SCH (21:32)
[2021-07-19] MEDS: LURASIDONE 20 MG TAB (LATUDA) PO SCH (21:32)
[2021-07-20 06:33] VITALS: BP 115/55
[2021-07-20] MEDS: clonazePAM 0.5 MG TAB PO SCH ×2 (08:20→21:11)
[2021-07-20] MEDS: hydrOXYzine 50 MG TAB PO SCH ×2 (08:20→21:10)
[2021-07-20] MEDS: BENZTROPINE 0.5 MG TAB PO SCH ×2 (08:20→21:10)
[2021-07-20] MEDS: OXcarbazepine 300 MG TAB PO SCH ×3 (08:21→21:10)
[2021-07-20] MEDS: NYSTATIN 100,000 UNITS/GM TOPICAL PWD 15 GM TOP SCH ×2 (08:21→21:00)
[2021-07-20] MEDS: CLOTRIMAZOLE 1% TOPICAL CREAM 30GM TOP SCH (08:21)
[2021-07-20 18:00] VITALS: BP 140/79
[2021-07-20] MEDS: PRAZOSIN 1 MG CAP PO SCH (21:10)
[2021-07-20] MEDS: LURASIDONE 20 MG TAB (LATUDA) PO SCH (21:10)
[2021-07-21] MEDS: OXcarbazepine 300 MG TAB PO SCH ×3 (08:05→20:46)
[2021-07-21] MEDS: clonazePAM 0.5 MG TAB PO SCH ×2 (08:05→20:45)
[2021-07-21] MEDS: BENZTROPINE 0.5 MG TAB PO SCH ×2 (08:05→20:46)
[2021-07-21] MEDS: hydrOXYzine 50 MG TAB PO SCH ×2 (08:05→20:46)
[2021-07-21] MEDS: CLOTRIMAZOLE 1% TOPICAL CREAM 30GM TOP SCH (08:07)
[2021-07-21] MEDS: NYSTATIN 100,000 UNITS/GM TOPICAL PWD 15 GM TOP SCH ×2 (08:07→21:40)
[2021-07-21] MEDS: LURASIDONE 20 MG TAB (LATUDA) PO SCH (20:43)
[2021-07-21] MEDS: PRAZOSIN 1 MG CAP PO SCH (20:45)
[2021-07-22 06:29] VITALS: BP 143/67
[2021-07-22] MEDS: CLOTRIMAZOLE 1% TOPICAL CREAM 30GM TOP SCH (09:27)
[2021-07-22] MEDS: NYSTATIN 100,000 UNITS/GM TOPICAL PWD 15 GM TOP SCH ×2 (09:28→20:59)
[2021-07-22] MEDS: BENZTROPINE 0.5 MG TAB PO SCH ×2 (09:31→20:57)
[2021-07-22] MEDS: OLANZapine ORAL DISINTEGRATING TAB 5MG PO PRN (09:31)
[2021-07-22] MEDS: clonazePAM 0.5 MG TAB PO SCH ×2 (09:31→20:57)
[2021-07-22] MEDS: hydrOXYzine 50 MG TAB PO SCH ×2 (09:32→20:57)
[2021-07-22] MEDS: OXcarbazepine 300 MG TAB PO SCH ×3 (09:32→20:57)
[2021-07-22 18:17] VITALS: BP 132/66
[2021-07-22] MEDS: LURASIDONE 20 MG TAB (LATUDA) PO SCH (20:57)
[2021-07-22] MEDS: PRAZOSIN 1 MG CAP PO SCH (20:58)
[2021-07-23 06:18] VITALS: BP 127/73
[2021-07-23] MEDS: clonazePAM 0.5 MG TAB PO SCH ×2 (08:10→21:23)
[2021-07-23] MEDS: hydrOXYzine 50 MG TAB PO SCH ×2 (08:10→21:23)
[2021-07-23] MEDS: NYSTATIN 100,000 UNITS/GM TOPICAL PWD 15 GM TOP SCH ×2 (08:10→21:22)
[2021-07-23] MEDS: OXcarbazepine 300 MG TAB PO SCH ×3 (08:10→21:23)
[2021-07-23] MEDS: CLOTRIMAZOLE 1% TOPICAL CREAM 30GM TOP SCH (08:10)
[2021-07-23] MEDS: BENZTROPINE 0.5 MG TAB PO SCH ×2 (08:10→21:23)
[2021-07-23 16:14] VITALS: BP 160/80
[2021-07-23] MEDS: PRAZOSIN 1 MG CAP PO SCH (21:22)
[2021-07-23] MEDS: LURASIDONE 20 MG TAB (LATUDA) PO SCH (21:23)
[2021-07-24 06:16] VITALS: BP 128/65
[2021-07-24] MEDS: NYSTATIN 100,000 UNITS/GM TOPICAL PWD 15 GM TOP SCH ×2 (08:41→20:21)
[2021-07-24] MEDS: clonazePAM 0.5 MG TAB PO SCH ×2 (08:41→20:21)
[2021-07-24] MEDS: OXcarbazepine 300 MG TAB PO SCH ×3 (08:41→20:21)
[2021-07-24] MEDS: CLOTRIMAZOLE 1% TOPICAL CREAM 30GM TOP SCH (08:41)
[2021-07-24] MEDS: hydrOXYzine 50 MG TAB PO SCH ×2 (08:41→20:22)
[2021-07-24] MEDS: BENZTROPINE 0.5 MG TAB PO SCH ×2 (08:41→20:22)
[2021-07-24 16:12] VITALS: BP 140/70
[2021-07-24] MEDS: PRAZOSIN 1 MG CAP PO SCH (20:21)
[2021-07-24] MEDS: LURASIDONE 20 MG TAB (LATUDA) PO SCH (20:22)
[2021-07-25 06:48] VITALS: BP 106/54
[2021-07-25] MEDS: CLOTRIMAZOLE 1% TOPICAL CREAM 30GM TOP SCH (08:34)
[2021-07-25] MEDS: clonazePAM 0.5 MG TAB PO SCH ×2 (08:34→20:42)
[2021-07-25] MEDS: NYSTATIN 100,000 UNITS/GM TOPICAL PWD 15 GM TOP SCH ×2 (08:34→20:40)
[2021-07-25] MEDS: hydrOXYzine 50 MG TAB PO SCH ×2 (08:34→20:41)
[2021-07-25] MEDS: OXcarbazepine 300 MG TAB PO SCH ×3 (08:34→20:41)
[2021-07-25] MEDS: BENZTROPINE 0.5 MG TAB PO SCH ×2 (08:34→20:41)
[2021-07-25 16:22] VITALS: BP 145/77
[2021-07-25] MEDS: PRAZOSIN 1 MG CAP PO SCH (20:41)
[2021-07-25] MEDS: LURASIDONE 20 MG TAB (LATUDA) PO SCH (20:42)
[2021-07-26 07:01] VITALS: BP 117/69
[2021-07-26] MEDS: BENZTROPINE 0.5 MG TAB PO SCH ×2 (08:54→20:32)
[2021-07-26] MEDS: OXcarbazepine 300 MG TAB PO SCH ×3 (08:55→20:31)
[2021-07-26] MEDS: clonazePAM 0.5 MG TAB PO SCH ×2 (08:56→20:29)
[2021-07-26] MEDS: CLOTRIMAZOLE 1% TOPICAL CREAM 30GM TOP SCH (08:56)
[2021-07-26] MEDS: hydrOXYzine 50 MG TAB PO SCH ×2 (08:56→20:32)
[2021-07-26] MEDS: NYSTATIN 100,000 UNITS/GM TOPICAL PWD 15 GM TOP SCH ×2 (08:57→20:48)
[2021-07-26 18:26] VITALS: BP 156/74
[2021-07-26] MEDS: LURASIDONE 20 MG TAB (LATUDA) PO SCH (20:30)
[2021-07-26] MEDS: PRAZOSIN 1 MG CAP PO SCH (20:30)
[2021-07-27] MEDS: BENZTROPINE 0.5 MG TAB PO SCH ×2 (08:09→20:15)
[2021-07-27] MEDS: clonazePAM 0.5 MG TAB PO SCH ×2 (08:09→20:15)
[2021-07-27] MEDS: hydrOXYzine 50 MG TAB PO SCH ×2 (08:09→20:15)
[2021-07-27] MEDS: NYSTATIN 100,000 UNITS/GM TOPICAL PWD 15 GM TOP SCH ×2 (08:09→20:14)
[2021-07-27] MEDS: OXcarbazepine 300 MG TAB PO SCH ×3 (08:09→20:15)
[2021-07-27] MEDS: CLOTRIMAZOLE 1% TOPICAL CREAM 30GM TOP SCH (08:10)
[2021-07-27 16:25] VITALS: BP 136/72
[2021-07-27] MEDS: LURASIDONE 20 MG TAB (LATUDA) PO SCH (20:15)
[2021-07-27] MEDS: PRAZOSIN 1 MG CAP PO SCH (20:15)
[2021-07-28 06:10] VITALS: BP 123/66
[2021-07-28] MEDS: CLOTRIMAZOLE 1% TOPICAL CREAM 30GM TOP SCH (08:07)
[2021-07-28] MEDS: clonazePAM 0.5 MG TAB PO SCH ×2 (08:07→20:11)
[2021-07-28] MEDS: NYSTATIN 100,000 UNITS/GM TOPICAL PWD 15 GM TOP SCH ×2 (08:07→20:10)
[2021-07-28] MEDS: BENZTROPINE 0.5 MG TAB PO SCH ×2 (08:07→20:11)
[2021-07-28] MEDS: OXcarbazepine 300 MG TAB PO SCH ×3 (08:07→20:10)
[2021-07-28] MEDS: hydrOXYzine 50 MG TAB PO SCH ×2 (08:07→20:10)
[2021-07-28 15:59] VITALS: BP 140/79
[2021-07-28] MEDS: LURASIDONE 20 MG TAB (LATUDA) PO SCH (20:10)
[2021-07-28] MEDS: PRAZOSIN 1 MG CAP PO SCH (20:11)
[2021-07-29 06:33] VITALS: BP 141/78
[2021-07-29] MEDS: NYSTATIN 100,000 UNITS/GM TOPICAL PWD 15 GM TOP SCH ×2 (08:18→20:34)
[2021-07-29] MEDS: OXcarbazepine 300 MG TAB PO SCH ×3 (08:18→20:34)
[2021-07-29] MEDS: BENZTROPINE 0.5 MG TAB PO SCH ×2 (08:18→20:34)
[2021-07-29] MEDS: clonazePAM 0.5 MG TAB PO SCH ×2 (08:18→20:33)
[2021-07-29] MEDS: CLOTRIMAZOLE 1% TOPICAL CREAM 30GM TOP SCH (08:18)
[2021-07-29] MEDS: hydrOXYzine 50 MG TAB PO SCH ×2 (08:18→20:33)
[2021-07-29 16:33] VITALS: BP 135/71
[2021-07-29] MEDS: OLANZapine ORAL DISINTEGRATING TAB 5MG PO PRN (19:51)
[2021-07-29] MEDS: PRAZOSIN 1 MG CAP PO SCH (20:33)
[2021-07-29] MEDS: LURASIDONE 20 MG TAB (LATUDA) PO SCH (20:34)
[2021-07-30 06:45] VITALS: BP 122/65
[2021-07-30] MEDS: BENZTROPINE 0.5 MG TAB PO SCH ×2 (08:29→20:09)
[2021-07-30] MEDS: hydrOXYzine 50 MG TAB PO SCH ×2 (08:29→20:09)
[2021-07-30] MEDS: clonazePAM 0.5 MG TAB PO SCH ×2 (08:30→20:09)
[2021-07-30] MEDS: OXcarbazepine 300 MG TAB PO SCH ×3 (08:30→20:08)
[2021-07-30] MEDS: CLOTRIMAZOLE 1% TOPICAL CREAM 30GM TOP SCH (08:31)
[2021-07-30] MEDS: NYSTATIN 100,000 UNITS/GM TOPICAL PWD 15 GM TOP SCH ×2 (08:32→20:08)
[2021-07-30 18:27] VITALS: BP 133/75
[2021-07-30] MEDS: PRAZOSIN 1 MG CAP PO SCH (20:09)
[2021-07-31 06:47] VITALS: BP 113/56
[2021-07-31] MEDS: OXcarbazepine 300 MG TAB PO SCH ×3 (08:20→20:22)
[2021-07-31] MEDS: BENZTROPINE 0.5 MG TAB PO SCH ×2 (08:20→20:23)
[2021-07-31] MEDS: clonazePAM 0.5 MG TAB PO SCH ×2 (08:21→20:22)
[2021-07-31] MEDS: hydrOXYzine 50 MG TAB PO SCH ×2 (08:21→20:22)
[2021-07-31] MEDS: CLOTRIMAZOLE 1% TOPICAL CREAM 30GM TOP SCH (08:22)
[2021-07-31] MEDS: NYSTATIN 100,000 UNITS/GM TOPICAL PWD 15 GM TOP SCH ×2 (08:23→20:21)
[2021-07-31 18:01] VITALS: BP 140/74
[2021-07-31] MEDS: PRAZOSIN 1 MG CAP PO SCH (20:22)
[2021-07-31] MEDS: traZODone 25MG PER 1/2 TABLET PO PRN (22:39)
[2021-08-01 06:54] VITALS: BP 119/65
[2021-08-01] MEDS: hydrOXYzine 50 MG TAB PO SCH ×2 (08:20→20:03)
[2021-08-01] MEDS: BENZTROPINE 0.5 MG TAB PO SCH ×2 (08:20→20:04)
[2021-08-01] MEDS: CLOTRIMAZOLE 1% TOPICAL CREAM 30GM TOP SCH (08:21)
[2021-08-01] MEDS: NYSTATIN 100,000 UNITS/GM TOPICAL PWD 15 GM TOP SCH ×2 (08:21→20:05)
[2021-08-01] MEDS: clonazePAM 0.5 MG TAB PO SCH ×2 (08:21→20:03)
[2021-08-01] MEDS: OXcarbazepine 300 MG TAB PO SCH ×3 (08:21→20:04)
[2021-08-01 17:52] VITALS: BP 141/70
[2021-08-01] MEDS: PRAZOSIN 1 MG CAP PO SCH (20:04)
[2021-08-01] MEDS: CARBAMIDE PEROXIDE 6.5% OTIC SOLN 15ML AU SCH (20:05)
[2021-08-02 06:29] VITALS: BP 113/57
[2021-08-02] MEDS: BENZTROPINE 0.5 MG TAB PO SCH ×2 (08:53→20:46)
[2021-08-02] MEDS: clonazePAM 0.5 MG TAB PO SCH ×2 (08:53→20:45)
[2021-08-02] MEDS: OXcarbazepine 300 MG TAB PO SCH ×3 (08:53→20:45)
[2021-08-02] MEDS: hydrOXYzine 50 MG TAB PO SCH ×2 (08:53→20:46)
[2021-08-02] MEDS: CARBAMIDE PEROXIDE 6.5% OTIC SOLN 15ML AU SCH ×2 (08:54→20:46)
[2021-08-02] MEDS: NYSTATIN 100,000 UNITS/GM TOPICAL PWD 15 GM TOP SCH ×2 (08:58→20:46)
[2021-08-02] MEDS: CLOTRIMAZOLE 1% TOPICAL CREAM 30GM TOP SCH (08:58)
[2021-08-02] MEDS: OLANZapine ORAL DISINTEGRATING TAB 5MG PO PRN (13:01)
[2021-08-02 18:24] VITALS: BP 131/77
[2021-08-02] MEDS: PRAZOSIN 1 MG CAP PO SCH (20:48)
[2021-08-03 06:12] VITALS: BP 116/59
[2021-08-03] MEDS: OXcarbazepine 300 MG TAB PO SCH ×3 (08:35→20:29)
[2021-08-03] MEDS: clonazePAM 0.5 MG TAB PO SCH ×2 (08:35→20:30)
[2021-08-03] MEDS: BENZTROPINE 0.5 MG TAB PO SCH ×2 (08:35→20:29)
[2021-08-03] MEDS: hydrOXYzine 50 MG TAB PO SCH ×2 (08:35→20:30)
[2021-08-03] MEDS: CLOTRIMAZOLE 1% TOPICAL CREAM 30GM TOP SCH (08:36)
[2021-08-03] MEDS: CARBAMIDE PEROXIDE 6.5% OTIC SOLN 15ML AU SCH ×2 (08:38→20:29)
[2021-08-03] MEDS: NYSTATIN 100,000 UNITS/GM TOPICAL PWD 15 GM TOP SCH ×2 (08:40→20:28)
[2021-08-03 16:45] VITALS: BP 146/71
[2021-08-03] MEDS: PRAZOSIN 1 MG CAP PO SCH (20:30)
[2021-08-04 06:36] VITALS: BP 124/65
[2021-08-04] MEDS: OXcarbazepine 300 MG TAB PO SCH ×3 (09:24→20:47)
[2021-08-04] MEDS: CARBAMIDE PEROXIDE 6.5% OTIC SOLN 15ML AU SCH ×2 (09:24→20:45)
[2021-08-04] MEDS: clonazePAM 0.5 MG TAB PO SCH ×2 (09:25→20:47)
[2021-08-04] MEDS: hydrOXYzine 50 MG TAB PO SCH ×2 (09:25→20:47)
[2021-08-04] MEDS: BENZTROPINE 0.5 MG TAB PO SCH ×2 (09:25→20:47)
[2021-08-04] MEDS: CLOTRIMAZOLE 1% TOPICAL CREAM 30GM TOP SCH (09:25)
[2021-08-04] MEDS: NYSTATIN 100,000 UNITS/GM TOPICAL PWD 15 GM TOP SCH ×2 (09:25→20:45)
[2021-08-04 18:42] VITALS: BP 136/65
[2021-08-04] MEDS: PRAZOSIN 1 MG CAP PO SCH (20:47)
[2021-08-05 07:11] VITALS: BP 126/60
[2021-08-05] MEDS: BENZTROPINE 0.5 MG TAB PO SCH ×2 (08:39→21:07)
[2021-08-05] MEDS: hydrOXYzine 50 MG TAB PO SCH ×2 (08:39→21:10)
[2021-08-05] MEDS: OXcarbazepine 300 MG TAB PO SCH ×3 (08:39→21:10)
[2021-08-05] MEDS: clonazePAM 0.5 MG TAB PO SCH ×2 (08:39→21:10)
[2021-08-05] MEDS: CLOTRIMAZOLE 1% TOPICAL CREAM 30GM TOP SCH (08:40)
[2021-08-05] MEDS: NYSTATIN 100,000 UNITS/GM TOPICAL PWD 15 GM TOP SCH ×2 (08:40→21:04)
[2021-08-05] MEDS: CARBAMIDE PEROXIDE 6.5% OTIC SOLN 15ML AU SCH (08:40)
[2021-08-05 16:06] VITALS: BP 166/77
[2021-08-05] MEDS: PRAZOSIN 1 MG CAP PO SCH (21:10)
[2021-08-06 07:18] VITALS: BP 106/77
[2021-08-06] MEDS: OXcarbazepine 300 MG TAB PO SCH ×3 (08:58→20:19)
[2021-08-06] MEDS: BENZTROPINE 0.5 MG TAB PO SCH ×2 (08:58→20:19)
[2021-08-06] MEDS: CLOTRIMAZOLE 1% TOPICAL CREAM 30GM TOP SCH (08:58)
[2021-08-06] MEDS: NYSTATIN 100,000 UNITS/GM TOPICAL PWD 15 GM TOP SCH ×2 (08:59→20:19)
[2021-08-06] MEDS: hydrOXYzine 50 MG TAB PO SCH ×2 (08:59→20:19)
[2021-08-06] MEDS: clonazePAM 0.5 MG TAB PO SCH ×2 (09:20→20:19)
[2021-08-06 17:22] VITALS: BP 137/76
[2021-08-06] MEDS: PRAZOSIN 1 MG CAP PO SCH (20:20)
[2021-08-07 06:03] VITALS: BP 133/62
[2021-08-07] MEDS: hydrOXYzine 50 MG TAB PO SCH ×2 (08:48→20:24)
[2021-08-07] MEDS: BENZTROPINE 0.5 MG TAB PO SCH ×2 (08:49→20:24)
[2021-08-07] MEDS: clonazePAM 0.5 MG TAB PO SCH ×2 (08:49→20:24)
[2021-08-07] MEDS: OXcarbazepine 300 MG TAB PO SCH ×3 (08:49→20:24)
[2021-08-07] MEDS: NYSTATIN 100,000 UNITS/GM TOPICAL PWD 15 GM TOP SCH ×2 (08:50→20:24)
[2021-08-07] MEDS: CLOTRIMAZOLE 1% TOPICAL CREAM 30GM TOP SCH (08:50)
[2021-08-07 16:18] VITALS: BP 140/72
[2021-08-07] MEDS: PRAZOSIN 1 MG CAP PO SCH (20:26)
[2021-08-08 06:58] VITALS: BP 111/51
[2021-08-08] MEDS: NYSTATIN 100,000 UNITS/GM TOPICAL PWD 15 GM TOP SCH ×2 (09:03→20:23)
[2021-08-08] MEDS: hydrOXYzine 50 MG TAB PO SCH ×2 (09:04→20:22)
[2021-08-08] MEDS: CLOTRIMAZOLE 1% TOPICAL CREAM 30GM TOP SCH (09:04)
[2021-08-08] MEDS: clonazePAM 0.5 MG TAB PO SCH ×2 (09:04→20:22)
[2021-08-08] MEDS: BENZTROPINE 0.5 MG TAB PO SCH ×2 (09:04→20:23)
[2021-08-08] MEDS: OXcarbazepine 300 MG TAB PO SCH ×3 (09:04→20:23)
[2021-08-08 16:47] VITALS: BP 144/86
[2021-08-08] MEDS: PRAZOSIN 1 MG CAP PO SCH (20:22)
[2021-08-09 06:56] VITALS: BP 133/58
[2021-08-09] MEDS: OXcarbazepine 300 MG TAB PO SCH ×3 (08:36→20:56)
[2021-08-09] MEDS: NYSTATIN 100,000 UNITS/GM TOPICAL PWD 15 GM TOP SCH ×2 (08:36→20:57)
[2021-08-09] MEDS: CLOTRIMAZOLE 1% TOPICAL CREAM 30GM TOP SCH (08:36)
[2021-08-09] MEDS: clonazePAM 0.5 MG TAB PO SCH ×2 (08:36→20:54)
[2021-08-09] MEDS: hydrOXYzine 50 MG TAB PO SCH ×2 (08:36→20:53)
[2021-08-09] MEDS: BENZTROPINE 0.5 MG TAB PO SCH ×2 (08:37→20:54)
[2021-08-09 17:55] VITALS: BP 129/76
[2021-08-09] MEDS: PRAZOSIN 1 MG CAP PO SCH (20:55)
[2021-08-10] MEDS: BENZTROPINE 0.5 MG TAB PO SCH ×2 (08:23→20:08)
[2021-08-10] MEDS: NYSTATIN 100,000 UNITS/GM TOPICAL PWD 15 GM TOP SCH ×2 (08:23→20:08)
[2021-08-10] MEDS: hydrOXYzine 50 MG TAB PO SCH ×2 (08:23→20:08)
[2021-08-10] MEDS: clonazePAM 0.5 MG TAB PO SCH ×2 (08:23→20:08)
[2021-08-10] MEDS: OXcarbazepine 300 MG TAB PO SCH ×3 (08:23→20:08)
[2021-08-10] MEDS: CLOTRIMAZOLE 1% TOPICAL CREAM 30GM TOP SCH (08:24)
[2021-08-10 16:11] VITALS: BP 134/70
[2021-08-10] MEDS: PRAZOSIN 1 MG CAP PO SCH (20:09)
[2021-08-11 06:26] VITALS: BP 117/66
[2021-08-11] MEDS: NYSTATIN 100,000 UNITS/GM TOPICAL PWD 15 GM TOP SCH ×2 (09:20→20:22)
[2021-08-11] MEDS: CLOTRIMAZOLE 1% TOPICAL CREAM 30GM TOP SCH (09:21)
[2021-08-11] MEDS: OXcarbazepine 300 MG TAB PO SCH ×3 (09:21→20:23)
[2021-08-11] MEDS: BENZTROPINE 0.5 MG TAB PO SCH ×2 (09:21→20:23)
[2021-08-11] MEDS: hydrOXYzine 50 MG TAB PO SCH ×2 (09:21→20:22)
[2021-08-11] MEDS: clonazePAM 0.5 MG TAB PO SCH ×2 (09:22→20:22)
[2021-08-11 16:25] VITALS: BP 134/62
[2021-08-11] MEDS: ACETAMINOPHEN TAB 650MG DOSE (2X325MG) PO PRN (19:09)
[2021-08-11] MEDS: PRAZOSIN 1 MG CAP PO SCH (20:27)
[2021-08-12 06:44] VITALS: BP 141/70
[2021-08-12] MEDS: NYSTATIN 100,000 UNITS/GM TOPICAL PWD 15 GM TOP SCH ×2 (08:51→20:14)
[2021-08-12] MEDS: CLOTRIMAZOLE 1% TOPICAL CREAM 30GM TOP SCH (08:52)
[2021-08-12] MEDS: hydrOXYzine 50 MG TAB PO SCH ×2 (08:53→20:15)
[2021-08-12] MEDS: OXcarbazepine 300 MG TAB PO SCH ×3 (08:53→20:15)
[2021-08-12] MEDS: clonazePAM 0.5 MG TAB PO SCH ×2 (08:53→20:15)
[2021-08-12] MEDS: BENZTROPINE 0.5 MG TAB PO SCH ×2 (08:53→20:15)
[2021-08-12 16:22] VITALS: BP 144/85
[2021-08-12] MEDS: PRAZOSIN 1 MG CAP PO SCH (20:15)
[2021-08-13 06:37] VITALS: BP 112/68
[2021-08-13] MEDS: NYSTATIN 100,000 UNITS/GM TOPICAL PWD 15 GM TOP SCH ×2 (09:41→21:07)
[2021-08-13] MEDS: CLOTRIMAZOLE 1% TOPICAL CREAM 30GM TOP SCH (09:42)
[2021-08-13] MEDS: BENZTROPINE 0.5 MG TAB PO SCH ×2 (09:43→21:03)
[2021-08-13] MEDS: hydrOXYzine 50 MG TAB PO SCH ×2 (09:43→21:03)
[2021-08-13] MEDS: OXcarbazepine 300 MG TAB PO SCH ×3 (09:43→21:05)
[2021-08-13] MEDS: clonazePAM 0.5 MG TAB PO SCH ×2 (09:45→21:04)
[2021-08-13 18:36] VITALS: BP 143/77
[2021-08-13] MEDS: PRAZOSIN 1 MG CAP PO SCH (21:05)
[2021-08-14 07:37] VITALS: BP 133/54
[2021-08-14] MEDS: NYSTATIN 100,000 UNITS/GM TOPICAL PWD 15 GM TOP SCH ×2 (09:36→20:13)
[2021-08-14] MEDS: CLOTRIMAZOLE 1% TOPICAL CREAM 30GM TOP SCH (09:37)
[2021-08-14] MEDS: hydrOXYzine 50 MG TAB PO SCH ×2 (09:37→20:13)
[2021-08-14] MEDS: clonazePAM 0.5 MG TAB PO SCH ×2 (09:37→20:13)
[2021-08-14] MEDS: OXcarbazepine 300 MG TAB PO SCH ×3 (09:38→20:13)
[2021-08-14] MEDS: BENZTROPINE 0.5 MG TAB PO SCH ×2 (09:38→20:13)
[2021-08-14 18:56] VITALS: BP 135/65
[2021-08-14] MEDS: PRAZOSIN 1 MG CAP PO SCH (20:14)
[2021-08-15 06:41] VITALS: BP 116/52
[2021-08-15] MEDS: OXcarbazepine 300 MG TAB PO SCH ×3 (08:39→20:21)
[2021-08-15] MEDS: BENZTROPINE 0.5 MG TAB PO SCH ×2 (08:39→20:22)
[2021-08-15] MEDS: clonazePAM 0.5 MG TAB PO SCH ×2 (08:39→20:21)
[2021-08-15] MEDS: hydrOXYzine 50 MG TAB PO SCH ×2 (08:39→20:22)
[2021-08-15] MEDS: CLOTRIMAZOLE 1% TOPICAL CREAM 30GM TOP SCH (08:41)
[2021-08-15] MEDS: NYSTATIN 100,000 UNITS/GM TOPICAL PWD 15 GM TOP SCH ×2 (09:00→20:22)
[2021-08-15 18:23] VITALS: BP 137/66
[2021-08-15] MEDS: PRAZOSIN 1 MG CAP PO SCH (20:22)
[2021-08-16 06:18] VITALS: BP 133/75
[2021-08-16] MEDS: clonazePAM 0.5 MG TAB PO SCH ×2 (08:13→20:03)
[2021-08-16] MEDS: OXcarbazepine 300 MG TAB PO SCH ×3 (08:13→20:02)
[2021-08-16] MEDS: hydrOXYzine 50 MG TAB PO SCH ×2 (08:13→20:03)
[2021-08-16] MEDS: BENZTROPINE 0.5 MG TAB PO SCH ×2 (08:13→20:03)
[2021-08-16] MEDS: NYSTATIN 100,000 UNITS/GM TOPICAL PWD 15 GM TOP SCH ×2 (08:14→20:11)
[2021-08-16] MEDS: CLOTRIMAZOLE 1% TOPICAL CREAM 30GM TOP SCH (08:14)
[2021-08-16] MEDS: OLANZapine ORAL DISINTEGRATING TAB 5MG PO PRN (15:15)
[2021-08-16 18:11] VITALS: BP 111/58
[2021-08-16] MEDS: PRAZOSIN 1 MG CAP PO SCH (20:03)
[2021-08-17 06:19] VITALS: BP 134/60
[2021-08-17] MEDS: NYSTATIN 100,000 UNITS/GM TOPICAL PWD 15 GM TOP SCH ×2 (08:11→20:15)
[2021-08-17] MEDS: BENZTROPINE 0.5 MG TAB PO SCH ×2 (08:12→20:16)
[2021-08-17] MEDS: CLOTRIMAZOLE 1% TOPICAL CREAM 30GM TOP SCH (08:12)
[2021-08-17] MEDS: OXcarbazepine 300 MG TAB PO SCH ×3 (08:12→20:15)
[2021-08-17] MEDS: hydrOXYzine 50 MG TAB PO SCH ×2 (08:12→20:16)
[2021-08-17] MEDS: clonazePAM 0.5 MG TAB PO SCH (08:12)
[2021-08-17 18:30] VITALS: BP 140/83
[2021-08-17] MEDS: PRAZOSIN 1 MG CAP PO SCH (20:16)
[2021-08-17] MEDS: clonazePAM 1 MG TAB PO SCH (20:16)
[2021-08-18 07:27] VITALS: BP 107/59
[2021-08-18] MEDS: NYSTATIN 100,000 UNITS/GM TOPICAL PWD 15 GM TOP SCH ×2 (09:14→20:14)
[2021-08-18] MEDS: CLOTRIMAZOLE 1% TOPICAL CREAM 30GM TOP SCH (09:16)
[2021-08-18] MEDS: BENZTROPINE 0.5 MG TAB PO SCH ×2 (09:16→20:14)
[2021-08-18] MEDS: hydrOXYzine 50 MG TAB PO SCH ×2 (09:16→20:15)
[2021-08-18] MEDS: clonazePAM 1 MG TAB PO SCH ×2 (09:16→20:14)
[2021-08-18] MEDS: OXcarbazepine 300 MG TAB PO SCH ×3 (09:17→20:14)
[2021-08-18 19:00] VITALS: BP 125/62
[2021-08-18] MEDS: PRAZOSIN 1 MG CAP PO SCH (20:14)
[2021-08-19 06:34] VITALS: BP 109/54
[2021-08-19] MEDS: NYSTATIN 100,000 UNITS/GM TOPICAL PWD 15 GM TOP SCH ×2 (09:32→21:12)
[2021-08-19] MEDS: CLOTRIMAZOLE 1% TOPICAL CREAM 30GM TOP SCH (09:33)
[2021-08-19] MEDS: clonazePAM 1 MG TAB PO SCH ×2 (09:33→21:05)
[2021-08-19] MEDS: hydrOXYzine 50 MG TAB PO SCH ×2 (09:33→21:05)
[2021-08-19] MEDS: BENZTROPINE 0.5 MG TAB PO SCH ×2 (09:33→21:05)
[2021-08-19] MEDS: OXcarbazepine 300 MG TAB PO SCH ×3 (09:33→21:05)
[2021-08-19 19:13] VITALS: BP 150/75
[2021-08-19] MEDS: PRAZOSIN 1 MG CAP PO SCH (21:06)
[2021-08-20 06:11] VITALS: BP 105/55
[2021-08-20] MEDS: clonazePAM 1 MG TAB PO SCH ×2 (09:19→20:14)
[2021-08-20] MEDS: CLOTRIMAZOLE 1% TOPICAL CREAM 30GM TOP SCH (09:19)
[2021-08-20] MEDS: NYSTATIN 100,000 UNITS/GM TOPICAL PWD 15 GM TOP SCH ×2 (09:19→20:13)
[2021-08-20] MEDS: OXcarbazepine 300 MG TAB PO SCH ×3 (09:20→20:14)
[2021-08-20] MEDS: hydrOXYzine 50 MG TAB PO SCH ×2 (09:20→20:13)
[2021-08-20] MEDS: BENZTROPINE 0.5 MG TAB PO SCH ×2 (09:20→20:14)
[2021-08-20 16:51] VITALS: BP 143/86
[2021-08-20] MEDS: OLANZapine ORAL DISINTEGRATING TAB 5MG PO PRN (18:30)
[2021-08-20] MEDS: PRAZOSIN 1 MG CAP PO SCH (20:13)
[2021-08-21 06:24] VITALS: BP 148/70
[2021-08-21] MEDS: NYSTATIN 100,000 UNITS/GM TOPICAL PWD 15 GM TOP SCH ×2 (09:33→20:15)
[2021-08-21] MEDS: CLOTRIMAZOLE 1% TOPICAL CREAM 30GM TOP SCH (09:33)
[2021-08-21] MEDS: hydrOXYzine 50 MG TAB PO SCH ×2 (09:34→20:18)
[2021-08-21] MEDS: BENZTROPINE 0.5 MG TAB PO SCH ×2 (09:34→20:18)
[2021-08-21] MEDS: OXcarbazepine 300 MG TAB PO SCH ×3 (09:34→20:18)
[2021-08-21] MEDS: clonazePAM 1 MG TAB PO SCH ×2 (09:35→20:18)
[2021-08-21] MEDS: OLANZapine ORAL DISINTEGRATING TAB 5MG PO PRN (09:37)
[2021-08-21 16:04] VITALS: BP 138/68
[2021-08-21] MEDS: PRAZOSIN 1 MG CAP PO SCH (20:17)
[2021-08-22 05:55] VITALS: BP 101/54
[2021-08-22] MEDS: NYSTATIN 100,000 UNITS/GM TOPICAL PWD 15 GM TOP SCH ×2 (09:06→20:08)
[2021-08-22] MEDS: hydrOXYzine 50 MG TAB PO SCH ×2 (09:06→20:09)
[2021-08-22] MEDS: BENZTROPINE 0.5 MG TAB PO SCH ×2 (09:06→20:09)
[2021-08-22] MEDS: CLOTRIMAZOLE 1% TOPICAL CREAM 30GM TOP SCH (09:06)
[2021-08-22] MEDS: OXcarbazepine 300 MG TAB PO SCH ×3 (09:07→20:09)
[2021-08-22] MEDS: clonazePAM 1 MG TAB PO SCH ×2 (09:07→20:09)
[2021-08-22 16:33] VITALS: BP 144/74
[2021-08-22] MEDS: PRAZOSIN 1 MG CAP PO SCH (20:09)
[2021-08-23 06:27] VITALS: BP 130/75
[2021-08-23] MEDS: BENZTROPINE 0.5 MG TAB PO SCH ×2 (08:56→20:06)
[2021-08-23] MEDS: hydrOXYzine 50 MG TAB PO SCH ×2 (08:56→20:05)
[2021-08-23] MEDS: clonazePAM 1 MG TAB PO SCH ×2 (08:56→20:06)
[2021-08-23] MEDS: OXcarbazepine 300 MG TAB PO SCH ×3 (08:56→20:06)
[2021-08-23] MEDS: CLOTRIMAZOLE 1% TOPICAL CREAM 30GM TOP SCH (08:57)
[2021-08-23] MEDS: NYSTATIN 100,000 UNITS/GM TOPICAL PWD 15 GM TOP SCH ×2 (08:57→20:05)
[2021-08-23 19:23] VITALS: BP 154/87
[2021-08-23] MEDS: PRAZOSIN 1 MG CAP PO SCH (20:05)
[2021-08-24 06:26] VITALS: BP 123/59
[2021-08-24] MEDS: hydrOXYzine 50 MG TAB PO SCH ×2 (09:12→20:10)
[2021-08-24] MEDS: BENZTROPINE 0.5 MG TAB PO SCH ×2 (09:12→20:09)
[2021-08-24] MEDS: clonazePAM 1 MG TAB PO SCH ×2 (09:12→20:09)
[2021-08-24] MEDS: OXcarbazepine 300 MG TAB PO SCH ×3 (09:13→20:09)
[2021-08-24] MEDS: NYSTATIN 100,000 UNITS/GM TOPICAL PWD 15 GM TOP SCH ×2 (09:15→20:09)
[2021-08-24] MEDS: CLOTRIMAZOLE 1% TOPICAL CREAM 30GM TOP SCH (09:15)
[2021-08-24 17:50] VITALS: BP 140/98
[2021-08-24] MEDS: PRAZOSIN 1 MG CAP PO SCH (20:10)
[2021-08-25 06:10] VITALS: BP 120/72
[2021-08-25] MEDS: NYSTATIN 100,000 UNITS/GM TOPICAL PWD 15 GM TOP SCH ×2 (08:57→20:05)
[2021-08-25] MEDS: BENZTROPINE 0.5 MG TAB PO SCH ×2 (08:57→20:06)
[2021-08-25] MEDS: clonazePAM 1 MG TAB PO SCH ×2 (08:57→20:06)
[2021-08-25] MEDS: OXcarbazepine 300 MG TAB PO SCH ×3 (08:57→20:05)
[2021-08-25] MEDS: CLOTRIMAZOLE 1% TOPICAL CREAM 30GM TOP SCH (08:57)
[2021-08-25] MEDS: hydrOXYzine 50 MG TAB PO SCH ×2 (08:57→20:06)
[2021-08-25 16:52] VITALS: BP 146/77
[2021-08-25] MEDS: PRAZOSIN 1 MG CAP PO SCH (20:06)
[2021-08-26 06:28] VITALS: BP 113/61
[2021-08-26] MEDS: NYSTATIN 100,000 UNITS/GM TOPICAL PWD 15 GM TOP SCH ×2 (09:10→20:37)
[2021-08-26] MEDS: CLOTRIMAZOLE 1% TOPICAL CREAM 30GM TOP SCH (09:10)
[2021-08-26] MEDS: OXcarbazepine 300 MG TAB PO SCH ×3 (09:10→20:38)
[2021-08-26] MEDS: hydrOXYzine 50 MG TAB PO SCH ×2 (09:10→20:38)
[2021-08-26] MEDS: BENZTROPINE 0.5 MG TAB PO SCH ×2 (09:10→20:38)
[2021-08-26] MEDS: clonazePAM 1 MG TAB PO SCH ×2 (09:10→20:38)
[2021-08-26] MEDS: ACETAMINOPHEN TAB 650MG DOSE (2X325MG) PO PRN (14:23)
[2021-08-26 16:17] VITALS: BP 120/62
[2021-08-26] MEDS: MAALOX 30 ML SUSP *UDC PO PRN (18:16)
[2021-08-26] MEDS: PRAZOSIN 1 MG CAP PO SCH (20:38)
[2021-08-27 07:11] VITALS: BP 118/56
[2021-08-27] MEDS: NYSTATIN 100,000 UNITS/GM TOPICAL PWD 15 GM TOP SCH ×2 (08:10→20:11)
[2021-08-27] MEDS: CLOTRIMAZOLE 1% TOPICAL CREAM 30GM TOP SCH (08:11)
[2021-08-27] MEDS: ACETAMINOPHEN TAB 650MG DOSE (2X325MG) PO PRN (08:12)
[2021-08-27] MEDS: BENZTROPINE 0.5 MG TAB PO SCH ×2 (08:13→20:09)
[2021-08-27] MEDS: OXcarbazepine 300 MG TAB PO SCH ×3 (08:13→20:09)
[2021-08-27] MEDS: hydrOXYzine 50 MG TAB PO SCH ×2 (08:13→20:08)
[2021-08-27] MEDS: clonazePAM 1 MG TAB PO SCH ×2 (08:14→20:09)
[2021-08-27] MEDS: buPROPion **XL** TABLET 150MG (WELLBUTRIN XL) PO SCH (11:52)
[2021-08-27 18:26] VITALS: BP 142/80
[2021-08-27] MEDS: PRAZOSIN 1 MG CAP PO SCH (20:09)
[2021-08-28 06:44] VITALS: BP 127/58
[2021-08-28] MEDS: NYSTATIN 100,000 UNITS/GM TOPICAL PWD 15 GM TOP SCH ×2 (08:48→20:30)
[2021-08-28] MEDS: clonazePAM 1 MG TAB PO SCH ×2 (08:49→20:24)
[2021-08-28] MEDS: BENZTROPINE 0.5 MG TAB PO SCH ×2 (08:49→20:24)
[2021-08-28] MEDS: hydrOXYzine 50 MG TAB PO SCH ×2 (08:49→20:29)
[2021-08-28] MEDS: OXcarbazepine 300 MG TAB PO SCH ×3 (08:49→20:23)
[2021-08-28] MEDS: buPROPion **XL** TABLET 150MG (WELLBUTRIN XL) PO SCH (08:49)
[2021-08-28] MEDS: CLOTRIMAZOLE 1% TOPICAL CREAM 30GM TOP SCH (08:49)
[2021-08-28 17:57] VITALS: BP 119/60
[2021-08-28] MEDS: PRAZOSIN 1 MG CAP PO SCH (20:29)
[2021-08-29 07:12] VITALS: BP 166/81
[2021-08-29] MEDS: hydrOXYzine 50 MG TAB PO SCH ×2 (08:31→20:13)
[2021-08-29] MEDS: BENZTROPINE 0.5 MG TAB PO SCH ×2 (08:31→20:13)
[2021-08-29] MEDS: OXcarbazepine 300 MG TAB PO SCH ×3 (08:32→20:13)
[2021-08-29] MEDS: buPROPion **XL** TABLET 150MG (WELLBUTRIN XL) PO SCH (08:33)
[2021-08-29] MEDS: CLOTRIMAZOLE 1% TOPICAL CREAM 30GM TOP SCH (08:33)
[2021-08-29] MEDS: clonazePAM 1 MG TAB PO SCH ×2 (08:33→20:14)
[2021-08-29] MEDS: NYSTATIN 100,000 UNITS/GM TOPICAL PWD 15 GM TOP SCH ×2 (08:34→20:14)
[2021-08-29 18:52] VITALS: BP 141/92
[2021-08-29] MEDS: PRAZOSIN 1 MG CAP PO SCH (20:13)
[2021-08-30 06:41] VITALS: BP 133/76
[2021-08-30] MEDS: buPROPion **XL** TABLET 150MG (WELLBUTRIN XL) PO SCH (08:48)
[2021-08-30] MEDS: hydrOXYzine 50 MG TAB PO SCH ×2 (08:48→20:10)
[2021-08-30] MEDS: clonazePAM 1 MG TAB PO SCH ×2 (08:49→20:11)
[2021-08-30] MEDS: CLOTRIMAZOLE 1% TOPICAL CREAM 30GM TOP SCH (08:49)
[2021-08-30] MEDS: BENZTROPINE 0.5 MG TAB PO SCH ×2 (08:49→20:10)
[2021-08-30] MEDS: OXcarbazepine 300 MG TAB PO SCH ×3 (08:49→20:11)
[2021-08-30] MEDS: NYSTATIN 100,000 UNITS/GM TOPICAL PWD 15 GM TOP SCH ×2 (08:50→20:10)
[2021-08-30 18:13] VITALS: BP 137/74
[2021-08-30] MEDS: PRAZOSIN 1 MG CAP PO SCH (20:10)
[2021-08-30] MEDS: OLANZapine ORAL DISINTEGRATING TAB 5MG PO PRN (20:53)
[2021-08-31 06:38] VITALS: BP 111/57
[2021-08-31] MEDS: OLANZapine ORAL DISINTEGRATING TAB 5MG PO PRN ×2 (09:04→19:11)
[2021-08-31] MEDS: NYSTATIN 100,000 UNITS/GM TOPICAL PWD 15 GM TOP SCH ×2 (09:04→21:00)
[2021-08-31] MEDS: clonazePAM 1 MG TAB PO SCH ×2 (09:05→21:17)
[2021-08-31] MEDS: BENZTROPINE 0.5 MG TAB PO SCH ×2 (09:05→21:18)
[2021-08-31] MEDS: OXcarbazepine 300 MG TAB PO SCH ×3 (09:05→21:18)
[2021-08-31] MEDS: hydrOXYzine 50 MG TAB PO SCH ×2 (09:05→21:17)
[2021-08-31] MEDS: CLOTRIMAZOLE 1% TOPICAL CREAM 30GM TOP SCH (09:10)
[2021-08-31 19:28] VITALS: BP 138/80
[2021-08-31] MEDS: PRAZOSIN 1 MG CAP PO SCH (21:17)
[2021-09-01 07:10] VITALS: BP 149/77
[2021-09-01] MEDS: CLOTRIMAZOLE 1% TOPICAL CREAM 30GM TOP SCH (08:54)
[2021-09-01] MEDS: hydrOXYzine 50 MG TAB PO SCH ×2 (08:55→21:10)
[2021-09-01] MEDS: clonazePAM 1 MG TAB PO SCH ×2 (08:55→21:09)
[2021-09-01] MEDS: NYSTATIN 100,000 UNITS/GM TOPICAL PWD 15 GM TOP SCH ×2 (08:55→21:00)
[2021-09-01] MEDS: OXcarbazepine 300 MG TAB PO SCH ×3 (08:55→21:09)
[2021-09-01] MEDS: BENZTROPINE 0.5 MG TAB PO SCH ×2 (08:55→21:09)
[2021-09-01] MEDS: OLANZapine ORAL DISINTEGRATING TAB 5MG PO PRN (09:07)
[2021-09-01 18:58] VITALS: BP 135/80
[2021-09-01] MEDS: PRAZOSIN 1 MG CAP PO SCH (21:10)
[2021-09-02 06:47] VITALS: BP 137/62
[2021-09-02] MEDS: CLOTRIMAZOLE 1% TOPICAL CREAM 30GM TOP SCH (09:00)
[2021-09-02] MEDS: hydrOXYzine 50 MG TAB PO SCH ×2 (09:01→21:18)
[2021-09-02] MEDS: BENZTROPINE 0.5 MG TAB PO SCH ×2 (09:01→21:18)
[2021-09-02] MEDS: NYSTATIN 100,000 UNITS/GM TOPICAL PWD 15 GM TOP SCH ×2 (09:01→21:17)
[2021-09-02] MEDS: OXcarbazepine 300 MG TAB PO SCH ×3 (09:02→21:17)
[2021-09-02] MEDS: clonazePAM 1 MG TAB PO SCH ×2 (09:02→21:17)
[2021-09-02] MEDS: ACETAMINOPHEN TAB 650MG DOSE (2X325MG) PO PRN (09:06)
[2021-09-02 19:00] VITALS: BP 131/61
[2021-09-02] MEDS: PRAZOSIN 1 MG CAP PO SCH (21:18)
[2021-09-02] MEDS: traZODone 25MG PER 1/2 TABLET PO PRN (23:29)
[2021-09-03 06:43] VITALS: BP 117/57
[2021-09-03] MEDS: NYSTATIN 100,000 UNITS/GM TOPICAL PWD 15 GM TOP SCH ×2 (08:35→20:20)
[2021-09-03] MEDS: CLOTRIMAZOLE 1% TOPICAL CREAM 30GM TOP SCH (08:35)
[2021-09-03] MEDS: hydrOXYzine 50 MG TAB PO SCH ×2 (08:36→20:19)
[2021-09-03] MEDS: clonazePAM 1 MG TAB PO SCH ×2 (08:36→20:19)
[2021-09-03] MEDS: OXcarbazepine 300 MG TAB PO SCH ×3 (08:36→20:19)
[2021-09-03] MEDS: BENZTROPINE 0.5 MG TAB PO SCH ×2 (08:36→20:19)
[2021-09-03 16:33] VITALS: BP 144/70
[2021-09-03] MEDS: PRAZOSIN 1 MG CAP PO SCH (20:20)
[2021-09-04 06:54] VITALS: BP 122/59
[2021-09-04] MEDS: NYSTATIN 100,000 UNITS/GM TOPICAL PWD 15 GM TOP SCH ×2 (09:03→20:24)
[2021-09-04] MEDS: CLOTRIMAZOLE 1% TOPICAL CREAM 30GM TOP SCH (09:04)
[2021-09-04] MEDS: BENZTROPINE 0.5 MG TAB PO SCH ×2 (09:04→20:24)
[2021-09-04] MEDS: clonazePAM 1 MG TAB PO SCH ×2 (09:04→20:23)
[2021-09-04] MEDS: hydrOXYzine 50 MG TAB PO SCH ×2 (09:04→20:23)
[2021-09-04] MEDS: OXcarbazepine 300 MG TAB PO SCH ×3 (09:05→20:23)
[2021-09-04 16:44] VITALS: BP 134/68
[2021-09-04] MEDS: PRAZOSIN 1 MG CAP PO SCH (20:24)
[2021-09-04] MEDS: traZODone 25MG PER 1/2 TABLET PO PRN (20:25)
[2021-09-05 06:28] VITALS: BP 114/53
[2021-09-05] MEDS: hydrOXYzine 50 MG TAB PO SCH ×2 (08:41→20:17)
[2021-09-05] MEDS: BENZTROPINE 0.5 MG TAB PO SCH ×2 (08:41→20:17)
[2021-09-05] MEDS: clonazePAM 1 MG TAB PO SCH ×2 (08:42→20:17)
[2021-09-05] MEDS: OXcarbazepine 300 MG TAB PO SCH ×3 (08:47→20:17)
[2021-09-05] MEDS: NYSTATIN 100,000 UNITS/GM TOPICAL PWD 15 GM TOP SCH ×2 (08:48→20:16)
[2021-09-05] MEDS: CLOTRIMAZOLE 1% TOPICAL CREAM 30GM TOP SCH (08:48)
[2021-09-05 17:23] VITALS: BP 138/67
[2021-09-05] MEDS: PRAZOSIN 1 MG CAP PO SCH (20:17)
[2021-09-06 06:52] VITALS: BP 140/80
[2021-09-06] MEDS: clonazePAM 1 MG TAB PO SCH ×2 (09:13→20:06)
[2021-09-06] MEDS: NYSTATIN 100,000 UNITS/GM TOPICAL PWD 15 GM TOP SCH ×2 (09:13→20:05)
[2021-09-06] MEDS: OXcarbazepine 300 MG TAB PO SCH ×3 (09:13→20:05)
[2021-09-06] MEDS: CLOTRIMAZOLE 1% TOPICAL CREAM 30GM TOP SCH (09:13)
[2021-09-06] MEDS: BENZTROPINE 0.5 MG TAB PO SCH ×2 (09:14→20:05)
[2021-09-06] MEDS: hydrOXYzine 50 MG TAB PO SCH ×2 (09:14→20:06)
[2021-09-06 19:08] VITALS: BP 127/61
[2021-09-06] MEDS: PRAZOSIN 1 MG CAP PO SCH (20:06)
[2021-09-06] MEDS: OLANZapine ORAL DISINTEGRATING TAB 5MG PO PRN (22:20)
[2021-09-07 07:08] VITALS: BP 99/58
[2021-09-07] MEDS: clonazePAM 1 MG TAB PO SCH ×2 (08:49→20:36)
[2021-09-07] MEDS: OXcarbazepine 300 MG TAB PO SCH ×3 (08:49→20:35)
[2021-09-07] MEDS: hydrOXYzine 50 MG TAB PO SCH ×2 (08:49→20:36)
[2021-09-07] MEDS: BENZTROPINE 0.5 MG TAB PO SCH ×2 (08:49→20:36)
[2021-09-07] MEDS: CLOTRIMAZOLE 1% TOPICAL CREAM 30GM TOP SCH (08:49)
[2021-09-07] MEDS: NYSTATIN 100,000 UNITS/GM TOPICAL PWD 15 GM TOP SCH ×2 (08:50→20:35)
[2021-09-07 16:41] VITALS: BP 140/78
[2021-09-07] MEDS: MAALOX 30 ML SUSP *UDC PO PRN (18:15)
[2021-09-07] MEDS: PRAZOSIN 1 MG CAP PO SCH (20:36)
[2021-09-08 06:37] VITALS: BP 105/58
[2021-09-08] MEDS: OXcarbazepine 300 MG TAB PO SCH ×3 (08:52→20:36)
[2021-09-08] MEDS: CLOTRIMAZOLE 1% TOPICAL CREAM 30GM TOP SCH (08:52)
[2021-09-08] MEDS: BENZTROPINE 0.5 MG TAB PO SCH ×2 (08:52→20:36)
[2021-09-08] MEDS: clonazePAM 1 MG TAB PO SCH ×2 (08:52→20:36)
[2021-09-08] MEDS: NYSTATIN 100,000 UNITS/GM TOPICAL PWD 15 GM TOP SCH ×2 (08:52→20:35)
[2021-09-08] MEDS: hydrOXYzine 50 MG TAB PO SCH ×2 (08:53→20:36)
[2021-09-08] MEDS: ACETAMINOPHEN TAB 650MG DOSE (2X325MG) PO PRN (15:23)
[2021-09-08 16:26] VITALS: BP 138/80
[2021-09-08] MEDS: PRAZOSIN 1 MG CAP PO SCH (20:37)
[2021-09-09 06:44] VITALS: BP 107/57
[2021-09-09] MEDS: BENZTROPINE 0.5 MG TAB PO SCH ×2 (09:11→20:34)
[2021-09-09] MEDS: NYSTATIN 100,000 UNITS/GM TOPICAL PWD 15 GM TOP SCH ×2 (09:11→20:35)
[2021-09-09] MEDS: OXcarbazepine 300 MG TAB PO SCH ×3 (09:11→20:35)
[2021-09-09] MEDS: CLOTRIMAZOLE 1% TOPICAL CREAM 30GM TOP SCH (09:11)
[2021-09-09] MEDS: hydrOXYzine 50 MG TAB PO SCH ×2 (09:12→20:34)
[2021-09-09] MEDS: clonazePAM 1 MG TAB PO SCH ×2 (09:12→20:34)
[2021-09-09 18:23] VITALS: BP 144/72
[2021-09-09] MEDS: PRAZOSIN 1 MG CAP PO SCH (20:34)
[2021-09-10 07:05] VITALS: BP 114/64
[2021-09-10] MEDS: NYSTATIN 100,000 UNITS/GM TOPICAL PWD 15 GM TOP SCH ×2 (08:45→20:19)
[2021-09-10] MEDS: clonazePAM 1 MG TAB PO SCH ×2 (08:45→20:18)
[2021-09-10] MEDS: CLOTRIMAZOLE 1% TOPICAL CREAM 30GM TOP SCH (08:45)
[2021-09-10] MEDS: hydrOXYzine 50 MG TAB PO SCH ×2 (08:46→20:18)
[2021-09-10] MEDS: BENZTROPINE 0.5 MG TAB PO SCH ×2 (08:46→20:18)
[2021-09-10] MEDS: OXcarbazepine 300 MG TAB PO SCH ×3 (08:46→20:18)
[2021-09-10 17:56] VITALS: BP 139/75
[2021-09-10] MEDS: PRAZOSIN 1 MG CAP PO SCH (20:18)
[2021-09-11 07:10] VITALS: BP 118/58
[2021-09-11] MEDS: BENZTROPINE 0.5 MG TAB PO SCH ×2 (08:34→20:29)
[2021-09-11] MEDS: OXcarbazepine 300 MG TAB PO SCH ×3 (08:34→20:30)
[2021-09-11] MEDS: NYSTATIN 100,000 UNITS/GM TOPICAL PWD 15 GM TOP SCH ×2 (08:34→20:29)
[2021-09-11] MEDS: clonazePAM 1 MG TAB PO SCH ×2 (08:34→20:29)
[2021-09-11] MEDS: hydrOXYzine 50 MG TAB PO SCH ×2 (08:34→20:29)
[2021-09-11] MEDS: CLOTRIMAZOLE 1% TOPICAL CREAM 30GM TOP SCH (08:35)
[2021-09-11] MEDS: ACETAMINOPHEN TAB 650MG DOSE (2X325MG) PO PRN (08:37)
[2021-09-11 18:00] VITALS: BP 146/84
[2021-09-11] MEDS: PRAZOSIN 1 MG CAP PO SCH (20:30)
[2021-09-12 06:00] VITALS: BP 127/73
[2021-09-12] MEDS: clonazePAM 1 MG TAB PO SCH ×2 (09:28→20:12)
[2021-09-12] MEDS: BENZTROPINE 0.5 MG TAB PO SCH ×2 (09:28→20:12)
[2021-09-12] MEDS: NYSTATIN 100,000 UNITS/GM TOPICAL PWD 15 GM TOP SCH ×2 (09:29→20:14)
[2021-09-12] MEDS: hydrOXYzine 50 MG TAB PO SCH ×2 (09:29→20:13)
[2021-09-12] MEDS: CLOTRIMAZOLE 1% TOPICAL CREAM 30GM TOP SCH (09:29)
[2021-09-12] MEDS: OXcarbazepine 300 MG TAB PO SCH ×3 (09:29→20:12)
[2021-09-12 18:16] VITALS: BP 170/80
[2021-09-12] MEDS: OLANZapine ORAL DISINTEGRATING TAB 5MG PO PRN (20:13)
[2021-09-12] MEDS: PRAZOSIN 1 MG CAP PO SCH (20:13)
[2021-09-13 06:39] VITALS: BP 125/57
[2021-09-13] MEDS: CLOTRIMAZOLE 1% TOPICAL CREAM 30GM TOP SCH (08:47)
[2021-09-13] MEDS: clonazePAM 1 MG TAB PO SCH ×2 (08:47→20:22)
[2021-09-13] MEDS: hydrOXYzine 50 MG TAB PO SCH ×2 (08:47→20:22)
[2021-09-13] MEDS: BENZTROPINE 0.5 MG TAB PO SCH ×2 (08:47→20:22)
[2021-09-13] MEDS: OXcarbazepine 300 MG TAB PO SCH ×3 (08:47→20:22)
[2021-09-13] MEDS: NYSTATIN 100,000 UNITS/GM TOPICAL PWD 15 GM TOP SCH ×2 (09:02→20:21)
[2021-09-13 19:04] VITALS: BP 140/60
[2021-09-13] MEDS: PRAZOSIN 1 MG CAP PO SCH (20:23)
[2021-09-14 06:22] VITALS: BP 122/55
[2021-09-14] MEDS: clonazePAM 1 MG TAB PO SCH ×2 (08:52→20:53)
[2021-09-14] MEDS: NYSTATIN 100,000 UNITS/GM TOPICAL PWD 15 GM TOP SCH ×2 (08:52→20:52)
[2021-09-14] MEDS: CLOTRIMAZOLE 1% TOPICAL CREAM 30GM TOP SCH (08:52)
[2021-09-14] MEDS: OXcarbazepine 300 MG TAB PO SCH ×3 (08:53→20:52)
[2021-09-14] MEDS: BENZTROPINE 0.5 MG TAB PO SCH ×2 (08:53→20:52)
[2021-09-14] MEDS: hydrOXYzine 50 MG TAB PO SCH ×2 (08:53→20:52)
[2021-09-14] MEDS: OLANZapine ORAL DISINTEGRATING TAB 5MG PO PRN (11:47)
[2021-09-14 19:07] VITALS: BP 148/73
[2021-09-14] MEDS: PRAZOSIN 1 MG CAP PO SCH (20:52)
[2021-09-14] MEDS: traZODone 25MG PER 1/2 TABLET PO PRN (22:08)
[2021-09-15 06:47] VITALS: BP 120/58
[2021-09-15] MEDS: BENZTROPINE 0.5 MG TAB PO SCH ×2 (08:57→20:54)
[2021-09-15] MEDS: hydrOXYzine 50 MG TAB PO SCH ×2 (08:58→20:53)
[2021-09-15] MEDS: clonazePAM 1 MG TAB PO SCH ×2 (08:58→20:55)
[2021-09-15] MEDS: OXcarbazepine 300 MG TAB PO SCH ×3 (08:59→20:56)
[2021-09-15] MEDS: CLOTRIMAZOLE 1% TOPICAL CREAM 30GM TOP SCH (09:02)
[2021-09-15] MEDS: NYSTATIN 100,000 UNITS/GM TOPICAL PWD 15 GM TOP SCH ×2 (09:02→20:57)
[2021-09-15] MEDS: PRAZOSIN 1 MG CAP PO SCH (20:55)
[2021-09-16 07:02] VITALS: BP 112/61
[2021-09-16] MEDS: OXcarbazepine 300 MG TAB PO SCH ×3 (09:02→20:30)
[2021-09-16] MEDS: NYSTATIN 100,000 UNITS/GM TOPICAL PWD 15 GM TOP SCH ×2 (09:02→20:30)
[2021-09-16] MEDS: hydrOXYzine 50 MG TAB PO SCH ×2 (09:03→20:31)
[2021-09-16] MEDS: BENZTROPINE 0.5 MG TAB PO SCH ×2 (09:03→20:31)
[2021-09-16] MEDS: clonazePAM 1 MG TAB PO SCH ×2 (09:05→20:31)
[2021-09-16] MEDS: CLOTRIMAZOLE 1% TOPICAL CREAM 30GM TOP SCH (09:06)
[2021-09-16] MEDS: PRAZOSIN 1 MG CAP PO SCH (20:31)
[2021-09-16 20:59] VITALS: BP 141/85
[2021-09-17 06:39] VITALS: BP 129/56
[2021-09-17] MEDS: OXcarbazepine 300 MG TAB PO SCH ×3 (09:06→20:14)
[2021-09-17] MEDS: hydrOXYzine 50 MG TAB PO SCH ×2 (09:06→20:14)
[2021-09-17] MEDS: clonazePAM 1 MG TAB PO SCH ×2 (09:06→20:14)
[2021-09-17] MEDS: BENZTROPINE 0.5 MG TAB PO SCH ×2 (09:06→20:14)
[2021-09-17] MEDS: NYSTATIN 100,000 UNITS/GM TOPICAL PWD 15 GM TOP SCH ×2 (09:07→20:13)
[2021-09-17] MEDS: CLOTRIMAZOLE 1% TOPICAL CREAM 30GM TOP SCH (09:07)
[2021-09-17 16:29] VITALS: BP 147/75
[2021-09-17] MEDS: PRAZOSIN 1 MG CAP PO SCH (20:13)
[2021-09-18] MEDS: clonazePAM 1 MG TAB PO SCH ×2 (07:53→20:19)
[2021-09-18] MEDS: hydrOXYzine 50 MG TAB PO SCH ×2 (07:53→20:18)
[2021-09-18] MEDS: BENZTROPINE 0.5 MG TAB PO SCH ×2 (07:53→20:18)
[2021-09-18] MEDS: OXcarbazepine 300 MG TAB PO SCH ×3 (07:53→20:15)
[2021-09-18] MEDS: CLOTRIMAZOLE 1% TOPICAL CREAM 30GM TOP SCH (07:54)
[2021-09-18] MEDS: NYSTATIN 100,000 UNITS/GM TOPICAL PWD 15 GM TOP SCH ×2 (07:54→20:21)
[2021-09-18 16:20] VITALS: BP 142/74
[2021-09-18] MEDS: PRAZOSIN 1 MG CAP PO SCH (20:17)
[2021-09-19 06:44] VITALS: BP 105/60
[2021-09-19] MEDS: OXcarbazepine 300 MG TAB PO SCH ×3 (09:07→20:18)
[2021-09-19] MEDS: hydrOXYzine 50 MG TAB PO SCH ×2 (09:08→20:15)
[2021-09-19] MEDS: CLOTRIMAZOLE 1% TOPICAL CREAM 30GM TOP SCH (09:08)
[2021-09-19] MEDS: NYSTATIN 100,000 UNITS/GM TOPICAL PWD 15 GM TOP SCH ×2 (09:08→20:19)
[2021-09-19] MEDS: BENZTROPINE 0.5 MG TAB PO SCH ×2 (09:09→20:15)
[2021-09-19] MEDS: clonazePAM 1 MG TAB PO SCH ×2 (09:09→20:16)
[2021-09-19 16:47] VITALS: BP 136/77
[2021-09-19] MEDS: PRAZOSIN 1 MG CAP PO SCH (20:17)
[2021-09-20 06:00] VITALS: BP 129/67
[2021-09-20] MEDS: NYSTATIN 100,000 UNITS/GM TOPICAL PWD 15 GM TOP SCH ×2 (09:15→20:22)
[2021-09-20] MEDS: CLOTRIMAZOLE 1% TOPICAL CREAM 30GM TOP SCH (09:15)
[2021-09-20] MEDS: clonazePAM 1 MG TAB PO SCH ×2 (09:16→20:21)
[2021-09-20] MEDS: OXcarbazepine 300 MG TAB PO SCH ×3 (09:16→20:21)
[2021-09-20] MEDS: BENZTROPINE 0.5 MG TAB PO SCH ×2 (09:16→20:22)
[2021-09-20] MEDS: hydrOXYzine 50 MG TAB PO SCH ×2 (09:17→20:21)
[2021-09-20 18:32] VITALS: BP 140/71
[2021-09-20] MEDS: PRAZOSIN 1 MG CAP PO SCH (20:20)
[2021-09-21 06:00] VITALS: BP 158/87
[2021-09-21] MEDS: clonazePAM 1 MG TAB PO SCH ×2 (08:24→20:16)
[2021-09-21] MEDS: BENZTROPINE 0.5 MG TAB PO SCH ×2 (08:24→20:16)
[2021-09-21] MEDS: OXcarbazepine 300 MG TAB PO SCH ×3 (08:24→20:16)
[2021-09-21] MEDS: CLOTRIMAZOLE 1% TOPICAL CREAM 30GM TOP SCH (08:25)
[2021-09-21] MEDS: hydrOXYzine 50 MG TAB PO SCH ×2 (08:25→20:19)
[2021-09-21] MEDS: NYSTATIN 100,000 UNITS/GM TOPICAL PWD 15 GM TOP SCH ×2 (08:25→20:16)
[2021-09-21 16:29] VITALS: BP 127/60
[2021-09-21] MEDS: PRAZOSIN 1 MG CAP PO SCH (20:19)
[2021-09-22 06:30] VITALS: BP 128/58
[2021-09-22] MEDS: BENZTROPINE 0.5 MG TAB PO SCH ×2 (08:46→20:04)
[2021-09-22] MEDS: CLOTRIMAZOLE 1% TOPICAL CREAM 30GM TOP SCH (08:46)
[2021-09-22] MEDS: NYSTATIN 100,000 UNITS/GM TOPICAL PWD 15 GM TOP SCH ×2 (08:46→20:10)
[2021-09-22] MEDS: hydrOXYzine 50 MG TAB PO SCH ×2 (08:46→20:04)
[2021-09-22] MEDS: OXcarbazepine 300 MG TAB PO SCH ×3 (08:46→20:04)
[2021-09-22] MEDS: clonazePAM 1 MG TAB PO SCH ×2 (08:46→20:04)
[2021-09-22 16:18] VITALS: BP 136/66
[2021-09-22] MEDS: PRAZOSIN 1 MG CAP PO SCH (20:10)
[2021-09-23 06:22] VITALS: BP 125/58
[2021-09-23] MEDS: hydrOXYzine 50 MG TAB PO SCH ×2 (08:29→20:10)
[2021-09-23] MEDS: clonazePAM 1 MG TAB PO SCH ×2 (08:29→20:10)
[2021-09-23] MEDS: OXcarbazepine 300 MG TAB PO SCH ×3 (08:29→20:11)
[2021-09-23] MEDS: BENZTROPINE 0.5 MG TAB PO SCH ×2 (08:29→20:10)
[2021-09-23] MEDS: CLOTRIMAZOLE 1% TOPICAL CREAM 30GM TOP SCH (08:29)
[2021-09-23] MEDS: NYSTATIN 100,000 UNITS/GM TOPICAL PWD 15 GM TOP SCH ×2 (08:29→20:11)
[2021-09-23 16:11] VITALS: BP 133/72
[2021-09-23] MEDS: PRAZOSIN 1 MG CAP PO SCH (20:11)
[2021-09-24 06:25] VITALS: BP 129/53
[2021-09-24] MEDS: NYSTATIN 100,000 UNITS/GM TOPICAL PWD 15 GM TOP SCH ×2 (09:03→20:58)
[2021-09-24] MEDS: BENZTROPINE 0.5 MG TAB PO SCH ×2 (09:04→21:00)
[2021-09-24] MEDS: hydrOXYzine 50 MG TAB PO SCH ×2 (09:04→21:00)
[2021-09-24] MEDS: CLOTRIMAZOLE 1% TOPICAL CREAM 30GM TOP SCH (09:04)
[2021-09-24] MEDS: OXcarbazepine 300 MG TAB PO SCH ×3 (09:05→20:59)
[2021-09-24] MEDS: clonazePAM 1 MG TAB PO SCH ×2 (09:05→21:00)
[2021-09-24] MEDS: OLANZapine ORAL DISINTEGRATING TAB 5MG PO PRN (09:42)
[2021-09-24 17:46] VITALS: BP 135/63
[2021-09-24] MEDS: MAALOX 30 ML SUSP *UDC PO PRN (20:58)
[2021-09-24] MEDS: PRAZOSIN 1 MG CAP PO SCH (21:00)
[2021-09-25 06:00] VITALS: BP 128/58
[2021-09-25] MEDS: NYSTATIN 100,000 UNITS/GM TOPICAL PWD 15 GM TOP SCH ×2 (09:24→20:38)
[2021-09-25] MEDS: CLOTRIMAZOLE 1% TOPICAL CREAM 30GM TOP SCH (09:24)
[2021-09-25] MEDS: OXcarbazepine 300 MG TAB PO SCH ×3 (09:25→20:39)
[2021-09-25] MEDS: BENZTROPINE 0.5 MG TAB PO SCH ×2 (09:25→20:39)
[2021-09-25] MEDS: hydrOXYzine 50 MG TAB PO SCH ×2 (09:25→20:39)
[2021-09-25] MEDS: clonazePAM 1 MG TAB PO SCH ×2 (09:25→20:39)
[2021-09-25 18:49] VITALS: BP 137/81
[2021-09-25] MEDS: PRAZOSIN 1 MG CAP PO SCH (20:39)
[2021-09-26 06:00] VITALS: BP 134/62
[2021-09-26] MEDS: BENZTROPINE 0.5 MG TAB PO SCH ×2 (09:15→21:05)
[2021-09-26] MEDS: clonazePAM 1 MG TAB PO SCH ×2 (09:15→21:05)
[2021-09-26] MEDS: hydrOXYzine 50 MG TAB PO SCH ×2 (09:15→21:05)
[2021-09-26] MEDS: OXcarbazepine 300 MG TAB PO SCH ×3 (09:15→21:05)
[2021-09-26] MEDS: CLOTRIMAZOLE 1% TOPICAL CREAM 30GM TOP SCH (09:16)
[2021-09-26] MEDS: NYSTATIN 100,000 UNITS/GM TOPICAL PWD 15 GM TOP SCH ×2 (09:18→21:04)
[2021-09-26] MEDS: OLANZapine ORAL DISINTEGRATING TAB 5MG PO PRN (17:21)
[2021-09-26] MEDS: PRAZOSIN 1 MG CAP PO SCH (21:06)
[2021-09-27 06:49] VITALS: BP 104/54
[2021-09-27] MEDS: hydrOXYzine 50 MG TAB PO SCH ×2 (08:23→20:00)
[2021-09-27] MEDS: NYSTATIN 100,000 UNITS/GM TOPICAL PWD 15 GM TOP SCH ×2 (08:23→20:00)
[2021-09-27] MEDS: OXcarbazepine 300 MG TAB PO SCH ×3 (08:23→19:59)
[2021-09-27] MEDS: CLOTRIMAZOLE 1% TOPICAL CREAM 30GM TOP SCH (08:23)
[2021-09-27] MEDS: clonazePAM 1 MG TAB PO SCH ×2 (08:23→20:00)
[2021-09-27] MEDS: BENZTROPINE 0.5 MG TAB PO SCH ×2 (08:23→19:59)
[2021-09-27 18:00] VITALS: BP 130/75
[2021-09-27] MEDS ORDERED: LOPERAMIDE 2 MG CAPLET PO PRN (19:45)
[2021-09-27] MEDS: PRAZOSIN 1 MG CAP PO SCH (20:00)
[2021-09-28 06:29] VITALS: BP 114/57
[2021-09-28] MEDS: hydrOXYzine 50 MG TAB PO SCH ×2 (08:41→20:21)
[2021-09-28] MEDS: CLOTRIMAZOLE 1% TOPICAL CREAM 30GM TOP SCH (08:41)
[2021-09-28] MEDS: NYSTATIN 100,000 UNITS/GM TOPICAL PWD 15 GM TOP SCH ×2 (08:41→20:18)
[2021-09-28] MEDS: BENZTROPINE 0.5 MG TAB PO SCH ×2 (08:42→20:21)
[2021-09-28] MEDS: clonazePAM 1 MG TAB PO SCH ×2 (08:42→20:21)
[2021-09-28] MEDS: OXcarbazepine 300 MG TAB PO SCH ×3 (08:42→20:20)
[2021-09-28 18:59] VITALS: BP 140/82
[2021-09-28] MEDS: PRAZOSIN 1 MG CAP PO SCH (20:21)
[2021-09-29 06:51] VITALS: BP 136/76
[2021-09-29] MEDS: NYSTATIN 100,000 UNITS/GM TOPICAL PWD 15 GM TOP SCH ×2 (08:40→21:41)
[2021-09-29] MEDS: CLOTRIMAZOLE 1% TOPICAL CREAM 30GM TOP SCH (08:40)
[2021-09-29] MEDS: BENZTROPINE 0.5 MG TAB PO SCH ×2 (08:41→21:42)
[2021-09-29] MEDS: OXcarbazepine 300 MG TAB PO SCH ×3 (08:41→21:41)
[2021-09-29] MEDS: hydrOXYzine 50 MG TAB PO SCH ×2 (08:41→21:41)
[2021-09-29] MEDS: clonazePAM 1 MG TAB PO SCH ×2 (08:41→21:42)
[2021-09-29] MEDS: OLANZapine ORAL DISINTEGRATING TAB 5MG PO PRN (14:10)
[2021-09-29 18:56] VITALS: BP 140/86
[2021-09-29] MEDS: PRAZOSIN 1 MG CAP PO SCH (21:42)
[2021-09-30 06:00] VITALS: BP 122/57
[2021-09-30] MEDS: CLOTRIMAZOLE 1% TOPICAL CREAM 30GM TOP SCH (09:26)
[2021-09-30] MEDS: clonazePAM 1 MG TAB PO SCH ×2 (09:26→20:14)
[2021-09-30] MEDS: OXcarbazepine 300 MG TAB PO SCH ×3 (09:26→20:15)
[2021-09-30] MEDS: NYSTATIN 100,000 UNITS/GM TOPICAL PWD 15 GM TOP SCH ×2 (09:26→20:13)
[2021-09-30] MEDS: hydrOXYzine 50 MG TAB PO SCH ×2 (09:26→20:15)
[2021-09-30] MEDS: BENZTROPINE 0.5 MG TAB PO SCH ×2 (09:26→20:14)
[2021-09-30] MEDS: ACETAMINOPHEN TAB 650MG DOSE (2X325MG) PO PRN (15:30)
[2021-09-30 19:02] VITALS: BP 134/76
[2021-09-30] MEDS: PRAZOSIN 1 MG CAP PO SCH (20:15)
[2021-10-01 06:42] VITALS: BP 102/52
[2021-10-01] MEDS: hydrOXYzine 50 MG TAB PO SCH ×2 (09:02→20:24)
[2021-10-01] MEDS: clonazePAM 1 MG TAB PO SCH ×2 (09:02→20:24)
[2021-10-01] MEDS: OXcarbazepine 300 MG TAB PO SCH ×3 (09:02→20:23)
[2021-10-01] MEDS: NYSTATIN 100,000 UNITS/GM TOPICAL PWD 15 GM TOP SCH ×2 (09:02→20:22)
[2021-10-01] MEDS: BENZTROPINE 0.5 MG TAB PO SCH ×2 (09:02→20:24)
[2021-10-01] MEDS: CLOTRIMAZOLE 1% TOPICAL CREAM 30GM TOP SCH (09:02)
[2021-10-01 16:35] VITALS: BP 132/73
[2021-10-01] MEDS: PRAZOSIN 1 MG CAP PO SCH (20:24)
[2021-10-02 06:25] VITALS: BP 111/51
[2021-10-02] MEDS: CLOTRIMAZOLE 1% TOPICAL CREAM 30GM TOP SCH (07:35)
[2021-10-02] MEDS: NYSTATIN 100,000 UNITS/GM TOPICAL PWD 15 GM TOP SCH ×2 (07:35→20:25)
[2021-10-02] MEDS: clonazePAM 1 MG TAB PO SCH ×2 (07:36→20:24)
[2021-10-02] MEDS: hydrOXYzine 50 MG TAB PO SCH ×2 (07:36→20:24)
[2021-10-02] MEDS: BENZTROPINE 0.5 MG TAB PO SCH ×2 (07:36→20:25)
[2021-10-02] MEDS: OXcarbazepine 300 MG TAB PO SCH ×3 (07:36→20:25)
[2021-10-02 16:49] VITALS: BP 128/68
[2021-10-02] MEDS: PRAZOSIN 1 MG CAP PO SCH (20:24)
[2021-10-03 07:07] VITALS: BP 122/57
[2021-10-03] MEDS: NYSTATIN 100,000 UNITS/GM TOPICAL PWD 15 GM TOP SCH ×2 (09:43→21:37)
[2021-10-03] MEDS: OXcarbazepine 300 MG TAB PO SCH ×3 (09:45→21:38)
[2021-10-03] MEDS: clonazePAM 1 MG TAB PO SCH ×2 (09:45→21:38)
[2021-10-03] MEDS: BENZTROPINE 0.5 MG TAB PO SCH ×2 (09:45→21:38)
[2021-10-03] MEDS: hydrOXYzine 50 MG TAB PO SCH ×2 (09:45→21:38)
[2021-10-03] MEDS: CLOTRIMAZOLE 1% TOPICAL CREAM 30GM TOP SCH (09:45)
[2021-10-03 16:26] VITALS: BP 146/86
[2021-10-03] MEDS: PRAZOSIN 1 MG CAP PO SCH (21:38)
[2021-10-04 07:11] VITALS: BP 121/55
[2021-10-04] MEDS: NYSTATIN 100,000 UNITS/GM TOPICAL PWD 15 GM TOP SCH ×2 (09:48→20:17)
[2021-10-04] MEDS: CLOTRIMAZOLE 1% TOPICAL CREAM 30GM TOP SCH (09:49)
[2021-10-04] MEDS: BENZTROPINE 0.5 MG TAB PO SCH ×2 (09:49→20:16)
[2021-10-04] MEDS: OXcarbazepine 300 MG TAB PO SCH ×3 (09:49→20:14)
[2021-10-04] MEDS: hydrOXYzine 50 MG TAB PO SCH ×2 (09:49→20:15)
[2021-10-04] MEDS: clonazePAM 1 MG TAB PO SCH ×2 (09:49→20:15)
[2021-10-04] MEDS: PRAZOSIN 1 MG CAP PO SCH (20:15)
[2021-10-04] MEDS: OLANZapine ORAL DISINTEGRATING TAB 5MG PO PRN (20:26)
[2021-10-05 05:50] VITALS: BP 101/57
[2021-10-05] MEDS: clonazePAM 1 MG TAB PO SCH ×2 (08:46→20:24)
[2021-10-05] MEDS: OXcarbazepine 300 MG TAB PO SCH ×3 (08:47→20:24)
[2021-10-05] MEDS: BENZTROPINE 0.5 MG TAB PO SCH ×2 (08:47→20:24)
[2021-10-05] MEDS: NYSTATIN 100,000 UNITS/GM TOPICAL PWD 15 GM TOP SCH ×2 (08:47→20:24)
[2021-10-05] MEDS: hydrOXYzine 50 MG TAB PO SCH ×2 (08:47→20:24)
[2021-10-05] MEDS: CLOTRIMAZOLE 1% TOPICAL CREAM 30GM TOP SCH (08:48)
[2021-10-05 17:20] VITALS: BP 148/70
[2021-10-05] MEDS: PRAZOSIN 1 MG CAP PO SCH (20:23)
[2021-10-06 06:49] VITALS: BP 111/53
[2021-10-06] MEDS: NYSTATIN 100,000 UNITS/GM TOPICAL PWD 15 GM TOP SCH ×2 (08:58→20:57)
[2021-10-06] MEDS: BENZTROPINE 0.5 MG TAB PO SCH ×2 (08:59→20:58)
[2021-10-06] MEDS: CLOTRIMAZOLE 1% TOPICAL CREAM 30GM TOP SCH (08:59)
[2021-10-06] MEDS: hydrOXYzine 50 MG TAB PO SCH ×2 (08:59→20:58)
[2021-10-06] MEDS: clonazePAM 1 MG TAB PO SCH ×2 (08:59→20:58)
[2021-10-06] MEDS: OXcarbazepine 300 MG TAB PO SCH ×3 (09:00→20:58)
[2021-10-06 16:26] VITALS: BP 148/90
[2021-10-06] MEDS: PRAZOSIN 1 MG CAP PO SCH (20:57)
[2021-10-06] MEDS: ARIPiprazole 15 MG TAB (AbiLIFY) PO SCH (20:58)
[2021-10-07 06:00] VITALS: BP 136/60
[2021-10-07] MEDS: OXcarbazepine 300 MG TAB PO SCH ×3 (08:47→21:11)
[2021-10-07] MEDS: clonazePAM 1 MG TAB PO SCH ×2 (08:47→21:12)
[2021-10-07] MEDS: CLOTRIMAZOLE 1% TOPICAL CREAM 30GM TOP SCH (08:47)
[2021-10-07] MEDS: NYSTATIN 100,000 UNITS/GM TOPICAL PWD 15 GM TOP SCH ×2 (08:47→21:10)
[2021-10-07] MEDS: ARIPiprazole 15 MG TAB (AbiLIFY) PO SCH ×2 (08:48→21:11)
[2021-10-07] MEDS: BENZTROPINE 0.5 MG TAB PO SCH ×2 (08:48→21:12)
[2021-10-07] MEDS: hydrOXYzine 50 MG TAB PO SCH ×2 (08:48→21:12)
[2021-10-07 16:31] VITALS: BP 129/66
[2021-10-07] MEDS: PRAZOSIN 1 MG CAP PO SCH (21:12)
[2021-10-08 07:09] VITALS: BP 129/58
[2021-10-08] MEDS: BENZTROPINE 0.5 MG TAB PO SCH ×2 (09:10→20:55)
[2021-10-08] MEDS: CLOTRIMAZOLE 1% TOPICAL CREAM 30GM TOP SCH (09:10)
[2021-10-08] MEDS: clonazePAM 1 MG TAB PO SCH ×2 (09:10→20:55)
[2021-10-08] MEDS: ARIPiprazole 15 MG TAB (AbiLIFY) PO SCH ×2 (09:10→20:54)
[2021-10-08] MEDS: hydrOXYzine 50 MG TAB PO SCH ×2 (09:10→20:55)
[2021-10-08] MEDS: NYSTATIN 100,000 UNITS/GM TOPICAL PWD 15 GM TOP SCH ×2 (09:10→20:53)
[2021-10-08] MEDS: OXcarbazepine 300 MG TAB PO SCH ×3 (09:10→20:54)
[2021-10-08] MEDS: ACETAMINOPHEN TAB 650MG DOSE (2X325MG) PO PRN (12:45)
[2021-10-08 19:24] VITALS: BP 140/75
[2021-10-08] MEDS: PRAZOSIN 1 MG CAP PO SCH (20:55)
[2021-10-09 06:50] VITALS: BP 113/55
[2021-10-09] MEDS: NYSTATIN 100,000 UNITS/GM TOPICAL PWD 15 GM TOP SCH ×2 (09:57→21:23)
[2021-10-09] MEDS: ARIPiprazole 15 MG TAB (AbiLIFY) PO SCH ×2 (09:58→21:24)
[2021-10-09] MEDS: hydrOXYzine 50 MG TAB PO SCH ×2 (09:58→21:23)
[2021-10-09] MEDS: BENZTROPINE 0.5 MG TAB PO SCH ×2 (09:58→21:23)
[2021-10-09] MEDS: CLOTRIMAZOLE 1% TOPICAL CREAM 30GM TOP SCH (09:58)
[2021-10-09] MEDS: clonazePAM 1 MG TAB PO SCH ×2 (09:58→21:24)
[2021-10-09] MEDS: OXcarbazepine 300 MG TAB PO SCH ×3 (09:58→21:23)
[2021-10-09 18:29] VITALS: BP 152/77
[2021-10-09] MEDS: PRAZOSIN 1 MG CAP PO SCH (21:24)
[2021-10-09] MEDS: traZODone 25MG PER 1/2 TABLET PO PRN (22:17)
[2021-10-10 07:04] VITALS: BP 137/96
[2021-10-10] MEDS: ARIPiprazole 15 MG TAB (AbiLIFY) PO SCH ×2 (08:03→20:41)
[2021-10-10] MEDS: clonazePAM 1 MG TAB PO SCH ×2 (08:04→20:42)
[2021-10-10] MEDS: BENZTROPINE 0.5 MG TAB PO SCH ×2 (08:04→20:42)
[2021-10-10] MEDS: hydrOXYzine 50 MG TAB PO SCH ×2 (08:04→20:42)
[2021-10-10] MEDS: NYSTATIN 100,000 UNITS/GM TOPICAL PWD 15 GM TOP SCH ×2 (08:04→20:43)
[2021-10-10] MEDS: CLOTRIMAZOLE 1% TOPICAL CREAM 30GM TOP SCH (08:04)
[2021-10-10] MEDS: OXcarbazepine 300 MG TAB PO SCH ×3 (08:04→20:42)
[2021-10-10] MEDS: PRAZOSIN 1 MG CAP PO SCH (20:42)
[2021-10-11 06:10] VITALS: BP 139/62
[2021-10-11] MEDS: CLOTRIMAZOLE 1% TOPICAL CREAM 30GM TOP SCH (09:07)
[2021-10-11] MEDS: NYSTATIN 100,000 UNITS/GM TOPICAL PWD 15 GM TOP SCH ×2 (09:08→20:56)
[2021-10-11] MEDS: OXcarbazepine 300 MG TAB PO SCH ×3 (09:11→20:54)
[2021-10-11] MEDS: hydrOXYzine 50 MG TAB PO SCH ×2 (09:11→20:55)
[2021-10-11] MEDS: clonazePAM 1 MG TAB PO SCH ×2 (09:11→20:54)
[2021-10-11] MEDS: ARIPiprazole 15 MG TAB (AbiLIFY) PO SCH ×2 (09:11→20:55)
[2021-10-11] MEDS: BENZTROPINE 0.5 MG TAB PO SCH ×2 (09:12→20:55)
[2021-10-11] MEDS: OLANZapine ORAL DISINTEGRATING TAB 5MG PO PRN (12:10)
[2021-10-11 12:36] VITALS: BP 139/62
[2021-10-11] MEDS: PRAZOSIN 1 MG CAP PO SCH (20:55)
[2021-10-12] MEDS: ARIPiprazole 15 MG TAB (AbiLIFY) PO SCH ×2 (10:01→20:39)
[2021-10-12] MEDS: OXcarbazepine 300 MG TAB PO SCH ×3 (10:01→20:38)
[2021-10-12] MEDS: hydrOXYzine 50 MG TAB PO SCH ×2 (10:01→20:39)
[2021-10-12] MEDS: clonazePAM 1 MG TAB PO SCH ×2 (10:01→20:39)
[2021-10-12] MEDS: BENZTROPINE 0.5 MG TAB PO SCH ×2 (10:02→20:39)
[2021-10-12] MEDS: CLOTRIMAZOLE 1% TOPICAL CREAM 30GM TOP SCH (10:07)
[2021-10-12] MEDS: NYSTATIN 100,000 UNITS/GM TOPICAL PWD 15 GM TOP SCH ×2 (10:07→20:38)
[2021-10-12 19:02] VITALS: BP 139/81
[2021-10-12] MEDS: PRAZOSIN 1 MG CAP PO SCH (20:39)
[2021-10-13 06:56] VITALS: BP 122/58
[2021-10-13] MEDS: BENZTROPINE 0.5 MG TAB PO SCH ×2 (09:55→21:44)
[2021-10-13] MEDS: hydrOXYzine 50 MG TAB PO SCH ×2 (09:55→21:43)
[2021-10-13] MEDS: ARIPiprazole 15 MG TAB (AbiLIFY) PO SCH ×2 (09:55→21:43)
[2021-10-13] MEDS: NYSTATIN 100,000 UNITS/GM TOPICAL PWD 15 GM TOP SCH ×2 (09:55→21:42)
[2021-10-13] MEDS: CLOTRIMAZOLE 1% TOPICAL CREAM 30GM TOP SCH (09:55)
[2021-10-13] MEDS: OXcarbazepine 300 MG TAB PO SCH ×3 (09:56→21:43)
[2021-10-13] MEDS: clonazePAM 1 MG TAB PO SCH ×2 (09:56→21:43)
[2021-10-13 18:49] VITALS: BP 132/89
[2021-10-13] MEDS: PRAZOSIN 1 MG CAP PO SCH (21:43)
[2021-10-14 06:00] VITALS: BP 134/73
[2021-10-14] MEDS: BENZTROPINE 0.5 MG TAB PO SCH ×2 (08:43→20:01)
[2021-10-14] MEDS: OXcarbazepine 300 MG TAB PO SCH ×3 (08:45→20:00)
[2021-10-14] MEDS: hydrOXYzine 50 MG TAB PO SCH ×2 (08:45→20:01)
[2021-10-14] MEDS: NYSTATIN 100,000 UNITS/GM TOPICAL PWD 15 GM TOP SCH ×2 (08:46→20:00)
[2021-10-14] MEDS: ARIPiprazole 15 MG TAB (AbiLIFY) PO SCH ×2 (08:46→20:01)
[2021-10-14] MEDS: CLOTRIMAZOLE 1% TOPICAL CREAM 30GM TOP SCH (08:46)
[2021-10-14] MEDS: clonazePAM 1 MG TAB PO SCH ×2 (08:46→20:01)
[2021-10-14 18:41] VITALS: BP 140/83
[2021-10-14] MEDS: MAALOX 30 ML SUSP *UDC PO PRN (19:56)
[2021-10-14] MEDS: PRAZOSIN 1 MG CAP PO SCH (20:01)
[2021-10-15 06:35] VITALS: BP 113/60
[2021-10-15] MEDS: ARIPiprazole 15 MG TAB (AbiLIFY) PO SCH ×2 (08:52→20:14)
[2021-10-15] MEDS: NYSTATIN 100,000 UNITS/GM TOPICAL PWD 15 GM TOP SCH ×2 (08:52→20:15)
[2021-10-15] MEDS: CLOTRIMAZOLE 1% TOPICAL CREAM 30GM TOP SCH (08:52)
[2021-10-15] MEDS: clonazePAM 1 MG TAB PO SCH ×2 (08:52→20:15)
[2021-10-15] MEDS: hydrOXYzine 50 MG TAB PO SCH ×2 (08:52→20:14)
[2021-10-15] MEDS: BENZTROPINE 0.5 MG TAB PO SCH ×2 (08:52→20:14)
[2021-10-15] MEDS: OXcarbazepine 300 MG TAB PO SCH ×3 (08:52→20:14)
[2021-10-15 16:53] VITALS: BP 132/62
[2021-10-15] MEDS: PRAZOSIN 1 MG CAP PO SCH (20:14)
[2021-10-16] MEDS: NYSTATIN 100,000 UNITS/GM TOPICAL PWD 15 GM TOP SCH ×2 (08:40→20:06)
[2021-10-16] MEDS: ARIPiprazole 15 MG TAB (AbiLIFY) PO SCH ×2 (08:41→20:06)
[2021-10-16] MEDS: clonazePAM 1 MG TAB PO SCH ×2 (08:41→20:06)
[2021-10-16] MEDS: CLOTRIMAZOLE 1% TOPICAL CREAM 30GM TOP SCH (08:41)
[2021-10-16] MEDS: OXcarbazepine 300 MG TAB PO SCH ×3 (08:41→20:06)
[2021-10-16] MEDS: hydrOXYzine 50 MG TAB PO SCH ×2 (08:41→20:06)
[2021-10-16] MEDS: BENZTROPINE 0.5 MG TAB PO SCH ×2 (08:41→20:06)
[2021-10-16 18:00] VITALS: BP 143/80
[2021-10-16] MEDS: OLANZapine ORAL DISINTEGRATING TAB 5MG PO PRN (18:18)
[2021-10-16] MEDS: PRAZOSIN 1 MG CAP PO SCH (20:07)
[2021-10-17 06:58] VITALS: BP 124/58
[2021-10-17] MEDS: OXcarbazepine 300 MG TAB PO SCH ×3 (07:41→20:05)
[2021-10-17] MEDS: ARIPiprazole 15 MG TAB (AbiLIFY) PO SCH ×2 (07:41→20:04)
[2021-10-17] MEDS: BENZTROPINE 0.5 MG TAB PO SCH ×2 (07:41→20:04)
[2021-10-17] MEDS: clonazePAM 1 MG TAB PO SCH ×2 (07:41→20:05)
[2021-10-17] MEDS: hydrOXYzine 50 MG TAB PO SCH ×2 (07:41→20:04)
[2021-10-17] MEDS: CLOTRIMAZOLE 1% TOPICAL CREAM 30GM TOP SCH (07:42)
[2021-10-17] MEDS: NYSTATIN 100,000 UNITS/GM TOPICAL PWD 15 GM TOP SCH ×2 (07:42→20:04)
[2021-10-17 08:00] VITALS: BP 124/58
[2021-10-17 16:29] VITALS: BP 132/68
[2021-10-17] MEDS: PRAZOSIN 1 MG CAP PO SCH (20:04)
[2021-10-18 06:27] VITALS: BP 132/62
[2021-10-18] MEDS: OXcarbazepine 300 MG TAB PO SCH ×3 (09:17→20:18)
[2021-10-18] MEDS: ARIPiprazole 15 MG TAB (AbiLIFY) PO SCH ×2 (09:17→20:17)
[2021-10-18] MEDS: CLOTRIMAZOLE 1% TOPICAL CREAM 30GM TOP SCH (09:17)
[2021-10-18] MEDS: clonazePAM 1 MG TAB PO SCH ×2 (09:17→20:18)
[2021-10-18] MEDS: NYSTATIN 100,000 UNITS/GM TOPICAL PWD 15 GM TOP SCH ×2 (09:17→20:17)
[2021-10-18] MEDS: hydrOXYzine 50 MG TAB PO SCH ×2 (09:18→20:17)
[2021-10-18] MEDS: BENZTROPINE 0.5 MG TAB PO SCH ×2 (09:18→20:17)
[2021-10-18 18:31] VITALS: BP 140/70
[2021-10-18] MEDS: PRAZOSIN 1 MG CAP PO SCH (20:17)
[2021-10-18] MEDS: OLANZapine ORAL DISINTEGRATING TAB 5MG PO PRN (20:43)
[2021-10-18] MEDS: ACETAMINOPHEN TAB 650MG DOSE (2X325MG) PO PRN (20:45)
[2021-10-19] MEDS: BENZTROPINE 0.5 MG TAB PO SCH ×2 (08:51→20:05)
[2021-10-19] MEDS: ARIPiprazole 15 MG TAB (AbiLIFY) PO SCH ×2 (08:51→20:05)
[2021-10-19] MEDS: OXcarbazepine 300 MG TAB PO SCH ×3 (08:51→20:05)
[2021-10-19] MEDS: hydrOXYzine 50 MG TAB PO SCH ×2 (08:51→20:05)
[2021-10-19] MEDS: clonazePAM 1 MG TAB PO SCH ×2 (08:51→20:05)
[2021-10-19] MEDS: NYSTATIN 100,000 UNITS/GM TOPICAL PWD 15 GM TOP SCH ×2 (08:52→20:06)
[2021-10-19] MEDS: CLOTRIMAZOLE 1% TOPICAL CREAM 30GM TOP SCH (08:52)
[2021-10-19 16:17] VITALS: BP 142/76
[2021-10-19] MEDS: PRAZOSIN 1 MG CAP PO SCH (20:06)
[2021-10-20 06:32] VITALS: BP 124/57
[2021-10-20] MEDS: CLOTRIMAZOLE 1% TOPICAL CREAM 30GM TOP SCH (07:39)
[2021-10-20] MEDS: NYSTATIN 100,000 UNITS/GM TOPICAL PWD 15 GM TOP SCH ×2 (07:39→20:06)
[2021-10-20] MEDS: clonazePAM 1 MG TAB PO SCH ×2 (07:40→20:07)
[2021-10-20] MEDS: hydrOXYzine 50 MG TAB PO SCH ×2 (07:40→20:07)
[2021-10-20] MEDS: OXcarbazepine 300 MG TAB PO SCH ×3 (07:40→20:06)
[2021-10-20] MEDS: BENZTROPINE 0.5 MG TAB PO SCH ×2 (07:40→20:07)
[2021-10-20] MEDS: ARIPiprazole 15 MG TAB (AbiLIFY) PO SCH ×2 (07:40→20:07)
[2021-10-20 17:06] VITALS: BP 127/65
[2021-10-20] MEDS: PRAZOSIN 1 MG CAP PO SCH (20:07)
[2021-10-21 06:37] VITALS: BP 115/61
[2021-10-21] MEDS: OXcarbazepine 300 MG TAB PO SCH ×3 (08:21→20:15)
[2021-10-21] MEDS: clonazePAM 1 MG TAB PO SCH ×2 (08:22→20:14)
[2021-10-21] MEDS: BENZTROPINE 0.5 MG TAB PO SCH ×2 (08:22→20:14)
[2021-10-21] MEDS: ARIPiprazole 15 MG TAB (AbiLIFY) PO SCH ×2 (08:22→20:15)
[2021-10-21] MEDS: hydrOXYzine 50 MG TAB PO SCH ×2 (08:22→20:15)
[2021-10-21] MEDS: CLOTRIMAZOLE 1% TOPICAL CREAM 30GM TOP SCH (08:24)
[2021-10-21] MEDS: NYSTATIN 100,000 UNITS/GM TOPICAL PWD 15 GM TOP SCH ×2 (08:24→20:13)
[2021-10-21 16:41] VITALS: BP 140/79
[2021-10-21] MEDS: PRAZOSIN 1 MG CAP PO SCH (20:15)
[2021-10-22 06:31] VITALS: BP 116/85
[2021-10-22] MEDS: NYSTATIN 100,000 UNITS/GM TOPICAL PWD 15 GM TOP SCH ×2 (08:34→21:23)
[2021-10-22] MEDS: CLOTRIMAZOLE 1% TOPICAL CREAM 30GM TOP SCH (08:34)
[2021-10-22] MEDS: clonazePAM 1 MG TAB PO SCH ×2 (08:35→21:24)
[2021-10-22] MEDS: BENZTROPINE 0.5 MG TAB PO SCH ×2 (08:35→21:23)
[2021-10-22] MEDS: OXcarbazepine 300 MG TAB PO SCH ×3 (08:35→21:24)
[2021-10-22] MEDS: ARIPiprazole 15 MG TAB (AbiLIFY) PO SCH ×2 (08:35→21:23)
[2021-10-22] MEDS: hydrOXYzine 50 MG TAB PO SCH ×2 (08:35→21:24)
[2021-10-22] MEDS: OLANZapine ORAL DISINTEGRATING TAB 5MG PO PRN (18:47)
[2021-10-22 18:56] VITALS: BP 137/81
[2021-10-22] MEDS: PRAZOSIN 1 MG CAP PO SCH (21:26)
[2021-10-22] MEDS: traZODone 25MG PER 1/2 TABLET PO PRN (23:11)
[2021-10-23 06:32] VITALS: BP 118/56
[2021-10-23] MEDS: NYSTATIN 100,000 UNITS/GM TOPICAL PWD 15 GM TOP SCH ×2 (09:06→20:24)
[2021-10-23] MEDS: OXcarbazepine 300 MG TAB PO SCH ×3 (09:06→20:24)
[2021-10-23] MEDS: CLOTRIMAZOLE 1% TOPICAL CREAM 30GM TOP SCH (09:06)
[2021-10-23] MEDS: ARIPiprazole 15 MG TAB (AbiLIFY) PO SCH ×2 (09:07→20:24)
[2021-10-23] MEDS: BENZTROPINE 0.5 MG TAB PO SCH ×2 (09:07→20:24)
[2021-10-23] MEDS: hydrOXYzine 50 MG TAB PO SCH ×2 (09:07→20:24)
[2021-10-23] MEDS: clonazePAM 1 MG TAB PO SCH ×2 (09:07→20:24)
[2021-10-23 17:58] VITALS: BP 137/82
[2021-10-23] MEDS: PRAZOSIN 1 MG CAP PO SCH (20:24)
[2021-10-24 07:01] VITALS: BP 126/64
[2021-10-24] MEDS: CLOTRIMAZOLE 1% TOPICAL CREAM 30GM TOP SCH (08:04)
[2021-10-24] MEDS: OXcarbazepine 300 MG TAB PO SCH ×3 (08:05→20:04)
[2021-10-24] MEDS: clonazePAM 1 MG TAB PO SCH ×2 (08:05→20:04)
[2021-10-24] MEDS: BENZTROPINE 0.5 MG TAB PO SCH ×2 (08:05→20:05)
[2021-10-24] MEDS: hydrOXYzine 50 MG TAB PO SCH ×2 (08:05→20:05)
[2021-10-24] MEDS: ARIPiprazole 15 MG TAB (AbiLIFY) PO SCH ×2 (08:05→20:05)
[2021-10-24] MEDS: NYSTATIN 100,000 UNITS/GM TOPICAL PWD 15 GM TOP SCH ×2 (08:06→20:05)
[2021-10-24] MEDS ORDERED: CLOTR1CR TOP (09:53)
[2021-10-24] MEDS ORDERED: OLAN5ZYD PO (09:53)
[2021-10-24] MEDS ORDERED: MOM30SS2 PO (09:53)
[2021-10-24] MEDS ORDERED: ABIL1TAB12 PO (09:53)
[2021-10-24] MEDS ORDERED: TRAZ-252 PO (09:53)
[2021-10-24] MEDS ORDERED: CLON1TAB8 PO (09:53)
[2021-10-24] MEDS ORDERED: TRIL600T PO (09:53)
[2021-10-24] MEDS ORDERED: BENZ0.5T23 PO (09:53)
[2021-10-24] MEDS ORDERED: NYST10006 TOP (09:53)
[2021-10-24] MEDS ORDERED: PRAZ2CAP PO (09:53)
[2021-10-24] MEDS ORDERED: HYDR50TA70 PO (09:53)
[2021-10-24 16:40] VITALS: BP 147/63
[2021-10-24 20:04] VITALS: BP 151/88
[2021-10-24] MEDS: PRAZOSIN 1 MG CAP PO SCH (20:04)
[2021-10-25] MEDS: clonazePAM 1 MG TAB PO SCH (07:52)
[2021-10-25] MEDS: hydrOXYzine 50 MG TAB PO SCH (07:52)
[2021-10-25] MEDS: OXcarbazepine 300 MG TAB PO SCH (07:53)
[2021-10-25] MEDS: NYSTATIN 100,000 UNITS/GM TOPICAL PWD 15 GM TOP SCH (07:53)
[2021-10-25] MEDS: ARIPiprazole 15 MG TAB (AbiLIFY) PO SCH (07:53)
[2021-10-25] MEDS: BENZTROPINE 0.5 MG TAB PO SCH (07:53)
[2021-10-25] MEDS: CLOTRIMAZOLE 1% TOPICAL CREAM 30GM TOP SCH (07:53)
== END 2021-10-25 08:41 | DRG 751 ==
LOC: M PSY 19:40
PROVIDERS: ADMIT Psychiatry & Neurology Psychiatry; ATTEND Student in an Organized Health Care Education/Training Program
DX: F32.3 Major depressive disorder, single episode, severe with psychotic features (principal); F84.0 Autistic disorder; F60.89 Other specific personality disorders; F10.11 Alcohol abuse, in remission; E11.9 Type 2 diabetes mellitus without complications; E78.00 Pure hypercholesterolemia, unspecified; Z20.822 Contact with and (suspected) exposure to COVID-19; F63.9 Impulse disorder, unspecified; R45.851 Suicidal ideations; Z79.899 Other long term (current) drug therapy; Z88.0 Allergy status to penicillin; Z88.8 Allergy status to other drugs, medicaments and biological substances